=== PATIENT | female | born 1975 | race Caucasian/White ===

== ENCOUNTER → 2017-10-23 13:03 | Outpatient (REF) | payer MEDICAID, SELFPAY ==
[2017-10-23 13:49] LABS: BUN 14 mg/dL (7-18); CREATININE 1.06 mg/dL (0.55-1.02); Calcium 8.9 mg/dL (8.5-10.1); Chloride 101 mmol/L (98-107); Estimated GFR 56.85 (mL/min/1.73m2); Glucose 101 mg/dL (70-100); Potassium 3.3 mmol/L (3.5-5.1); Sodium 138 mmol/L (136-145)
== END ==
LOC: NCHCN 13:03
PROVIDERS: PCP Family Medicine; Visit Provider Family Medicine
DX: I10 Essential (primary) hypertension (principal)
CPT/HCPCS: 80048

== ENCOUNTER 2017-11-21 10:47 | Outpatient (REF) | payer MEDICAID, SELFPAY ==
[2017-11-21 13:26] LABS: Anion Gap 8.2 mmol/L (3-11); BUN 18 mg/dL (7-18); CO2 26.8 mmol/L (21.0-32.0); CREATININE 1.01 mg/dL (0.55-1.02); Calcium 8.7 mg/dL (8.5-10.1); Chloride 101 mmol/L (98-107); Glucose 101 mg/dL (70-100); Potassium 3.6 mmol/L (3.5-5.1); Sodium 136 mmol/L (136-145)
== END 2017-11-21 11:07 ==
LOC: NCHCN 10:47
PROVIDERS: PCP Family Medicine; Visit Provider Family Medicine
DX: E87.6 Hypokalemia (principal)
CPT/HCPCS: 80048

== ENCOUNTER 2018-01-21 11:39 | Outpatient (REF) | payer MEDICAID, SELFPAY ==
[2018-01-21 19:21] LABS: HCT 36.1 % (36.0-46.0); HGB 12.7 g/dL (12.0-15.5); Mean Corp. HGB Concentration 35.2 g/dL (32.0-36.0); Mean Corpuscular Hemoglobin 32.3 pg (27.0-33.0); Mean Corpuscular Volume 91.9 fL (80-95); Mean Platelet Volume 9.8 fL (8.0-11.0); Platelet Count 299 x1000/uL (130-400); RBC 3.93 m/cumm (4.00-5.20); RBC Distribution Width 12.6 % (11.7-14.6); White Blood Cell Count 8.61 k/cumm (4.4-10.8)
[2018-01-21 20:11] LABS: Anion Gap 11.2 mmol/L (3-11); BUN 13 mg/dL (7-18); CO2 26.8 mmol/L (21.0-32.0); CREATININE 0.99 mg/dL (0.55-1.02); Calcium 8.6 mg/dL (8.5-10.1); Chloride 101 mmol/L (98-107); Ferritin 30 ng/mL (8-388); Glucose 89 mg/dL (70-100); Potassium 3.2 mmol/L (3.5-5.1); Sodium 139 mmol/L (136-145)
== END 2018-01-21 11:59 ==
LOC: NCHCN 11:39
PROVIDERS: PCP Family Medicine; Visit Provider Family Medicine
DX: E87.6 Hypokalemia (principal); K51.90 Ulcerative colitis, unspecified, without complications; I10 Essential (primary) hypertension; Z86.2 Personal history of diseases of the blood and blood-forming organs and certain disorders involving the immune mechanism
CPT/HCPCS: 80048; 85027; 82728

== ENCOUNTER 2018-06-26 11:20 | Outpatient (REF) | payer MEDICAID, SELFPAY ==
[2018-06-26 19:34] LABS: Potassium 3.9 mmol/L (3.5-5.1)
== END 2018-06-26 11:40 ==
LOC: NCHCN 11:20
PROVIDERS: PCP Family Medicine; Visit Provider Family Medicine
DX: I10 Essential (primary) hypertension (principal); E87.6 Hypokalemia
CPT/HCPCS: 84132

== ENCOUNTER 2018-06-30 01:33 | Outpatient (CLI) | payer MEDICAID, SELFPAY ==
--- NOTE | 2018-06-30 11:54 | DI.MAMMO_ITS ---
SYMPTOM/DIAGNOSIS: SCREENING, Z12.39 MAMMOGRAMS: Mammograms were interpreted according to the usual protocol including computer analysis with CAD system, tomosynthesis and C view imaging. Comparison is made with prior examinations. Breast density, Category C. No suspicious masses or microcalcifications are seen. There is no definite evidence of malignancy. IMPRESSION: Negative mammogram. Routine screening is recommended. Category 1. MQSA ASSESSMENT OF FINDINGS: Negative. Category 1. Patient will receive a letter notifying them of these results. Bi-RADS category C. The breasts are heterogeneously dense, which may obscure small masses.
== END 2018-06-30 01:53 ==
PROVIDERS: PCP Family Medicine; Visit Provider Family Medicine
DX: Z12.31 Encounter for screening mammogram for malignant neoplasm of breast (principal)
CPT/HCPCS: 77063; 77067

== ENCOUNTER 2018-07-10 09:03 | Outpatient (REF) | payer MEDICAID, SELFPAY ==
[2018-07-10 13:00] LABS: BUN 16 mg/dL (7-18); CREATININE 0.98 mg/dL (0.55-1.02); Calcium 8.6 mg/dL (8.5-10.1); Chloride 105 mmol/L (98-107); Glucose 89 mg/dL (70-100); Potassium 3.9 mmol/L (3.5-5.1); Sodium 141 mmol/L (136-145)
== END 2018-07-10 09:23 ==
LOC: NCHCN 09:03
PROVIDERS: PCP Family Medicine; Visit Provider Family Medicine
DX: E87.6 Hypokalemia (principal); I10 Essential (primary) hypertension
CPT/HCPCS: 80048

== ENCOUNTER 2019-03-17 11:53 | Outpatient (REF) | payer MEDICAID, SELFPAY ==
[2019-03-17 12:44] LABS: Anion Gap 9.9 mmol/L (3-11); BUN 16 mg/dL (7-18); CO2 26.1 mmol/L (21.0-32.0); CREATININE 1.14 mg/dL (0.55-1.02); Calcium 8.6 mg/dL (8.5-10.1); Chloride 104 mmol/L (98-107); Estimated GFR 51.78 (mL/min/1.73m2); Glucose 106 mg/dL (74-106); Potassium 4.3 mmol/L (3.5-5.1); Sodium 140 mmol/L (136-145)
== END 2019-03-17 12:13 ==
LOC: NCHCN 11:53
PROVIDERS: PCP Family Medicine; Visit Provider Family Medicine
DX: I10 Essential (primary) hypertension (principal)
CPT/HCPCS: 80048

== ENCOUNTER 2019-05-04 12:54 | Outpatient (REF) | payer MEDICAID, SELFPAY ==
[2019-05-04 13:02] LABS: Anion Gap 8.2 mmol/L (3-11); BUN 13 mg/dL (7-18); CO2 27.8 mmol/L (21.0-32.0); Calcium 8.8 mg/dL (8.5-10.1); Chloride 105 mmol/L (98-107); Estimated GFR 53.96 (mL/min/1.73m2); Glucose 104 mg/dL (74-106); Potassium 4.5 mmol/L (3.5-5.1); Sodium 141 mmol/L (136-145)
[2019-05-04 13:41] LABS: Hemoglobin A1C 5.3 % (3.8-5.6)
== END 2019-05-04 13:14 ==
LOC: NCHCN 12:54
PROVIDERS: PCP Family Medicine; Visit Provider Family Medicine
DX: E87.6 Hypokalemia (principal); I10 Essential (primary) hypertension; R73.01 Impaired fasting glucose
CPT/HCPCS: 80048; 83036

== ENCOUNTER 2019-09-21 19:45 | Outpatient (REF) | payer MEDICAID, SELFPAY ==
[2019-10-20 09:32] LABS: Fungus Smear No Fungi Seen
== END 2019-09-21 20:05 ==
LOC: NCHCN 19:45
PROVIDERS: PCP Family Medicine; Visit Provider Nurse Practitioner Family
DX: R21 Rash and other nonspecific skin eruption (principal)
CPT/HCPCS: 87102; 87206

== ENCOUNTER 2019-10-11 00:46 | Outpatient (CLI) | payer MEDICAID, SELFPAY ==
--- NOTE | 2019-10-11 09:30 | DI.RAD_ITS ---
CLINICAL HISTORY: RT AND LT SIDED RIB PAIN,R07.81. COMPARISON: CR CHEST 2 VIEWS PA,LAT from 11/14/2016 FINDINGS: LUNGS:Clear. No pneumothorax. HEART: Normal. MEDIASTINUM: Normal. BONES: No displaced rib fracture is seen. No bony destructive lesion is seen. Mild degenerative key ges are seen in the midthoracic spine. OTHER FINDINGS: Status post cholecystectomy. IMPRESSION: 1. Unremarkable radiographic appearance of the bilateral ribs. 2. No acute pulmonary findings.
== END 2019-10-11 01:06 ==
PROVIDERS: PCP Family Medicine; Visit Provider Family Medicine
DX: R07.81 Pleurodynia (principal)
CPT/HCPCS: 71046; 71110

== ENCOUNTER 2019-10-28 01:03 | Outpatient (CLI) | payer MEDICAID, SELFPAY ==
--- NOTE | 2019-10-28 | DI.US_ITS ---
APPROVED REPORT EXAM: Comprehensive 2D, Doppler, and color-flow Echocardiogram Patient Location: Out-Patient Food Photographer: Lacy Pagan RDCS (AE) Indications: Murmur Other Information Study Quality: Good Conclusion Normal left ventricular wall thickness and chamber size. Estimated ejection fraction is 60%. There are no segmental wall motion abnormalities Normal right ventricular size and function Atria are normal in size Structurally normal aortic valve without regurgitation or stenosis Structurally normal mitral valve. Moderate mitral regurgitation Structurally normal tricuspid valve. Mild tricuspid regurgitation with normal estimated right ventri cular systolic pressure Normal pulmonic valve, trace pulmonic regurgitation Wall motion Left Ventricle The left ventricle is normal size. The left ventricular systolic function is normal. The left ventric ular ejection fraction is within the normal range. There is normal left ventricular wall thickness. T here is normal LV segmental wall motion. There is no ventricular septal defect visualized. LVEF is 60 %. Right Ventricle The right ventricle is normal size. The right ventricular systolic function is normal. The RVSP is 28 .6 mmHg. Atria The left atrium size is normal. The right atrium size is normal. The interatrial septum is intact wit h no evidence for an atrial septal defect. Aortic Valve Aortic valve is trileaflet. There is no aortic valvular stenosis. No aortic regurgitation is present. Mitral Valve The mitral valve is normal in structure. No evidence of mitral valve stenosis. moderate mitral regurg itation. Tricuspid Valve The tricuspid valve is normal in structure. There is no tricuspid valve stenosis. Mild tricuspid regu rgitation. Pulmonic Valve The pulmonary valve is normal in structure. There is no pulmonic valvular stenosis. Trace pulmonic re gurgitation. Great Vessels The aortic root is normal in size. The ascending aorta is normal in size. IVC is normal in size and c ollapses >50% with inspiration. Pericardium There is no pericardial effusion. 2D Dimensions IVSD d PLAX 0.83 cm F: 0.6-1.0 LV Vol A2C d MOD 87.8 mL LVPW d PLAX 0.83 cm F: 0.6 - 1.0 LV Vol A4C d MOD 93.2 mL LVID d PLAX 4.71 cm F: 3.8 - 5.2 LA vol/ BSA A2C s A-L 36.9 mL/m2 LVDs 3.20 cm F: 2.2 - 3.5 LA vol/ BSA A4C s A-L 29.3 mL/m2 Ao Root d 2.50 cm F: 2.7 - 3.3 LA Vol/ BSA Biplane s A-L 33.1 mL/m2 RA Area A4C 13.29 cm2 LA Area A4C s MOD 18.66 cm2 RA Vol/ BSA A4C s A-L 16.9 mL/m2 LA Area A2C s MOD 21.03 cm2 Ao Asc Diam d 3.00 cm F: 2.3 - 3.1 LV EF A4C MOD 57.7 % LV EF Teichholz 59.8 % LV EF A2C MOD 59.1 % LVEF (King's) 59.38 % F: 54 - 74 LV EF Biplane MOD 59.4 % LV Volume 71.90 mL F: 46 - 106 SV 55.64 mL LV Volume Index 38.44 mL/m2 F: 29 - 61 SV Index 29.75 mL/m2 LV Vol Biplane MOD 93.7 mL FS 31.75 % M-Mode TAPSE 2.55 cm (M/F) >1.7 LV Diastology MV E' medial 0.076 (>0.07 m/s) E/A Ratio 0.9 LV E/e MED 11.10 (<14) MV E Vmax 0.85 (0.4-1.3 m/s) MV E' lateral 0.114 (>0.1 m/s) MV A Vmax 0.95 (0.4-1.3 m/s) LV E/e LAT 7.40 (<14) MV E/A Ratio 0.86 MV E/E' medial 11.11 MV E/E' lateral 7.41 Aortic Valve LVOT Vmax 1.21 m/s AUDREY 2.23 cm2 LVOT Mean Chad. 0.78 m/s AUDREY Index 1.19 cm2/m2 LVOT Peak Grad 5.8 mmHg AoV Area Vmax 2.17 cm2 LVOT Mean Grad 2.9 mmHg AoV Area/ BSA (Vmax) 1.16 cm2/m2 LVOT VTI 0.260 m AUDREY Mean Chad. 1.96 cm2 LVOT Diam s 1.83 cm AUDREY Mean Chad. Index 1.05 cm2/m2 AoV Vmax 1.46 m/s Velocity Ratio 0.82 AoV Mean Chad. 1.04 m/s AoV Peak Grad 8.5 mmHg AoV Mean Grad 4.8 mmHg AoV VTI 0.306 m Mitral Valve MV DT 239 (160-240 msec) MR Vmax 5.84 m/s MV PHT 69 msec MR VTI 2.143 m MV Area PHT 3.17 cm2 MR Peak Grad 136.5 mmHg MV VTI 0.400 m MR Mean Grad 89.7 mmHg MR PISA Radius 0.35 cm MR EROA 0.05 cm2 MR Aliasing Velocity 0.35 m/s MR PISA 0.78 cm2 Pulmonary Valve PV Vmax 1.21 (0.5-1.5 m/s) RVOT Peak Gr. 3.26 mmHg PV Peak Grad 5.8 mmHg RVOT Mean Gr. 1.65 mmHg PV Mean Grad 2.9 mmHg RVOT VTI 0.184 m PV VTI 0.240 m RVOT Vmax 0.90 m/s Tricuspid Valve TR Peak Grad 25.6 mmHg TR Vmax 2.53 m/s RA Pressure 3.00 mmHg RVSP (TR) 28.6 mmHg
== END 2019-10-28 01:23 ==
PROVIDERS: PCP Family Medicine; Visit Provider Family Medicine
DX: I08.1 Rheumatic disorders of both mitral and tricuspid valves (principal)
CPT/HCPCS: 93306

== ENCOUNTER 2020-01-18 14:05 | Outpatient (CLI) | payer MEDICAID, SELFPAY ==
[2020-01-17 14:58] LABS: HCG Quant, Pregnancy 6 mIU/mL (1-3)
== END 2020-01-18 14:25 ==
PROVIDERS: PCP Family Medicine; Visit Provider Obstetrics & Gynecology
DX: N93.9 Abnormal uterine and vaginal bleeding, unspecified (principal)
CPT/HCPCS: 36415; 84702

== ENCOUNTER 2020-02-23 11:00 | Outpatient (REF) | payer MEDICAID, SELFPAY ==
[2020-02-23 20:12] LABS: Anion Gap 9.1 mmol/L (3-11); BUN 16 mg/dL (7-18); CO2 24.9 mmol/L (21.0-32.0); CREATININE 1.18 mg/dL (0.55-1.02); Calcium 9.3 mg/dL (8.5-10.1); Chloride 104 mmol/L (98-107); Estimated GFR 49.53 (mL/min/1.73m2); Glucose 106 mg/dL (74-106); Potassium 4.2 mmol/L (3.5-5.1); Sodium 138 mmol/L (136-145)
== END 2020-02-23 11:20 ==
LOC: NCHCN 11:00
PROVIDERS: PCP Family Medicine; Visit Provider Family Medicine
DX: I10 Essential (primary) hypertension (principal); R73.03 Prediabetes; E87.6 Hypokalemia
CPT/HCPCS: 80048; 83036

== ENCOUNTER 2020-09-08 07:57 | Outpatient (REF) | payer MEDICAID, SELFPAY ==
[2020-09-08 14:06] LABS: Anion Gap 10.4 mmol/L (3-11); BUN 17 mg/dL (7-18); CO2 25.6 mmol/L (21.0-32.0); CREATININE 1.2 mg/dL (0.55-1.02); Calcium 9.3 mg/dL (8.5-10.1); Chloride 104 mmol/L (98-107); Estimated GFR 48.58 (mL/min/1.73m2); Glucose 108 mg/dL (74-106); Potassium 4.4 mmol/L (3.5-5.1); Sodium 140 mmol/L (136-145)
[2020-09-08 17:50] LABS: COMMENT (LAB VIEW ONLY) 217.74 mg/dL; Microalb ug/mg Crea 6.9 ug/mg Cr
== END 2020-09-08 07:58 | disposition home or self-care (01) ==
LOC: LBN 07:57
PROVIDERS: PCP Family Medicine; Visit Provider Family Medicine
DX: N18.31 Chronic kidney disease, stage 3a (principal)
CPT/HCPCS: 80048; 82043; 82570

== ENCOUNTER 2020-10-16 08:47 | Outpatient (REF) | payer MEDICAID, SELFPAY ==
[2020-10-16 15:21] LABS: BUN 12 mg/dL (7-18); Calcium 9.1 mg/dL (8.5-10.1); Chloride 103 mmol/L (98-107); Estimated GFR 59.96 (mL/min/1.73m2); Glucose 107 mg/dL (74-106); Potassium 4.2 mmol/L (3.5-5.1); Sodium 138 mmol/L (136-145)
== END 2020-10-16 08:48 | disposition home or self-care (01) ==
LOC: LBN 08:47
PROVIDERS: PCP Family Medicine; Visit Provider Family Medicine
DX: N18.31 Chronic kidney disease, stage 3a (principal)
CPT/HCPCS: 80048

== ENCOUNTER 2020-10-20 10:33 | Outpatient (REF) | payer MEDICAID, SELFPAY ==
[2020-10-20 19:16] LABS: HCG Quant, Pregnancy 43688 mIU/mL (1-3)
== END 2020-10-20 10:34 | disposition home or self-care (01) ==
LOC: NCHCN 10:33
PROVIDERS: PCP Family Medicine; Visit Provider Family Medicine
DX: Z33.1 Pregnant state, incidental (principal)
CPT/HCPCS: 84702

== ENCOUNTER 2020-11-09 03:01 | Outpatient (CLI) | payer MEDICAID, SELFPAY ==
[2020-11-09 13:42] LABS: ALT 26 U/L (14-59); AST 14 U/L (15-37); Albumin 3.9 g/dL (3.4-5.0); Alkaline Phosphatase 47 U/L (46-116); Anion Gap 12.1 mmol/L (3-11); BUN 8 mg/dL (7-18); Bilirubin, Total 0.5 mg/dL (0.2-1.0); CO2 21.9 mmol/L (21.0-32.0); Calcium 8.7 mg/dL (8.5-10.1); Chloride 104 mmol/L (98-107); Estimated GFR 59.96 (mL/min/1.73m2); Glucose 109 mg/dL (74-106); Potassium 4.2 mmol/L (3.5-5.1); Sodium 138 mmol/L (136-145); Total Protein 7.3 g/dL (6.4-8.2)
== END 2020-11-09 03:02 | disposition home or self-care (01) ==
LOC: LBO 03:01
PROVIDERS: PCP Family Medicine; Visit Provider Advanced Practice Midwife
DX: I10 Essential (primary) hypertension (principal); Z34.91 Encounter for supervision of normal pregnancy, unspecified, first trimester
CPT/HCPCS: 36415; 80053

== ENCOUNTER 2020-11-09 07:54 | Outpatient (REF) | payer MEDICAID, SELFPAY ==
[2020-11-09 16:09] LABS: PROTEIN < 6.0 mg/dL (0.0-11.9); Total Volume 3200 ml
== END 2020-11-09 07:55 | disposition home or self-care (01) ==
LOC: LBN 07:54
PROVIDERS: PCP Family Medicine; Visit Provider Advanced Practice Midwife
DX: I10 Essential (primary) hypertension (principal); Z34.91 Encounter for supervision of normal pregnancy, unspecified, first trimester
CPT/HCPCS: 81050; 84155

== ENCOUNTER 2020-11-20 03:20 | Outpatient (CLI) | payer MEDICAID, SELFPAY ==
[2020-11-20 15:46] LABS: Abs Immature Grans 0.11 10^3/uL (0.0-0.06); Absolute Basophil Count 0.01 10^3/uL (0.0-0.2); Absolute Eosinophil Count 0.13 10^3/uL (0.0-0.7); Absolute Lymphocyte Count 1.77 10^3/uL (1.2-3.4); Absolute Monocyte Count 0.61 10^3/uL (0.1-0.8); Absolute Neutrophil Count 7.01 10^3/uL (1.2-6.7); Basophils % 0.1; Eosinophils % 1.3; HCT 35.2 % (36.0-46.0); Immature Grans % 1.1; Lymphocytes % 18.4; MCH 31.1 pg (27.0-33.0); MCHC 34.1 % (32.0-36.0); MCV 91.2 fL (80-95); MPV 8.8 fL (8.0-11.0); Monocytes % 6.3; Neutrophils % 72.8; Nucleated RBC 0 %; Platelet Count 251 10^3/uL (130-400); RBC 3.86 10^6/uL (3.93-5.22); RDW 12.9 % (11.7-14.6); RDW-SD 42.3 fL; WBC 9.64 10^3/uL (4.4-10.8)
[2020-11-20 16:13] LABS: Glucose,1 Hr (Glucola) 98 mg/dL (80-140)
[2020-11-20 17:03] LABS: TSH (W/Ref FT4) 0.97 uIU/mL (0.36-3.74)
[2020-11-21 10:14] LABS: Varicella IgG Antibody Positive (See Note)
[2020-11-21 10:17] LABS: Rubella IgG Ab (UVM) Positive (See Note)
[2020-11-21 10:24] LABS: Hepatitis B Surface Ag Negative (Negative)
[2020-11-21 12:31] LABS: Hepatitis C Ab w Rflx HCV PCR Negative (Negative)
[2020-11-21 13:33] LABS: HIV-1/2 Ag & Ab Screen Negative (Negative)
[2020-11-22 09:30] LABS: Hemoglobin A1C 5.2 % (<5.7)
[2020-11-22 14:21] LABS: Syphilis Total Ab w/Reflex Nonreactive (Nonreactive)
== END 2020-11-20 03:21 | disposition home or self-care (01) ==
LOC: LBO 03:20
PROVIDERS: Advanced Practice Midwife; PCP Family Medicine; Visit Provider Advanced Practice Midwife
DX: Z34.91 Encounter for supervision of normal pregnancy, unspecified, first trimester (principal)
CPT/HCPCS: 36415; 82950; 86787; 86803; 86850; 86900; 86901; 87340; 87389; 83036; 84443; 85025; 86762; 86780

== ENCOUNTER 2020-11-20 16:35 | Outpatient (REF) | payer MEDICAID, SELFPAY ==
--- NOTE | 2020-11-20 15:10 | PAPFT_PTH ---
PATIENT: Nilda Parish LOC: [facility] U#:[id number] AGE/SX: 45/F ROOM: RE11/20/[address]: Leigha Roberson : 1975 BED: DIS: 11/20/2020 SPEC #: [id number] RECD: 11/20/20 18:37 STATUS: LAINE REQ #: [id number] SATNAM: 11/20/20 15:[address]: Leigha Roberson DEPT: [facility] Cytology RECD BY: Kristina Claire ENTERED: 11/20/20 18:38 SP TYPE: PAPFT OTHR DR: Cielo Goncalves Tissues: 1 - CX/ENDOCX FOR PAP SMEARS Procedures: PAP THIN PREP/UVM Screening HPV DNA PROBE Comments: [id number]
[2020-11-20 19:01] LABS: *AMPHETAMINES SCREEN URINE Negative (Negative); *BARBITURATES SCREEN URINE Negative (Negative); *BENZODIAZEPINES SCREEN URINE Negative (Negative); Cannabinoids THC Negative (Negative); Cocaine Screen,Urine Negative (Negative); METHADONE URINE SCREEN Negative (Negative); OPIATES URINE SCREEN Negative (Negative)
[2020-11-20 19:08] LABS: Tricyclic Antidepressants Negative (Negative)
[2020-11-22 15:00] LABS: Chlamydia Result Negative (Negative); GC Result Negative (Negative)
[2020-11-24 11:41] LABS: Buprenorphine Negative ng/mL (Cutoff: 5.0); Norbuprenorphine Negative ng/mL (Cutoff: 2.5)
== END 2020-11-20 16:36 | disposition home or self-care (01) ==
LOC: LBN 16:35
PROVIDERS: PCP Family Medicine; Visit Provider Advanced Practice Midwife
DX: Z12.4 Encounter for screening for malignant neoplasm of cervix (principal); Z11.3 Encounter for screening for infections with a predominantly sexual mode of transmission; Z11.51 Encounter for screening for human papillomavirus (HPV)
CPT/HCPCS: 80307; 87491; 87591; 88142; 87086; 87624

== ENCOUNTER 2021-03-02 03:37 | Outpatient (CLI) | payer MEDICAID, SELFPAY ==
[2021-03-02 11:25] LABS: Glucose,1 Hr (Glucola) 146 mg/dL (80-140)
== END 2021-03-02 03:38 | disposition home or self-care (01) ==
PROVIDERS: PCP Family Medicine; Visit Provider Obstetrics & Gynecology
DX: O09.522 Supervision of elderly multigravida, second trimester (principal); Z3A.26 26 weeks gestation of pregnancy
CPT/HCPCS: 36415; 80053; 82950; 85025

== ENCOUNTER 2021-03-02 10:11 | Emergency (ER) | payer MEDICAID, SELFPAY ==
--- NOTE | 2021-03-02 10:00 | RT.EKG_ITS ---
APPROVED REPORT Exam: Resting ECG Reason for Exam: Syncope Patient Location: E HR:81 bpm ECG Measurements Heart Rate 81 AXIS HI 168 P 44 QRSd 85 QRS 7 QT 367 T 24 QTc 427 Conclusion Sinus rhythm...normal P axis, V-rate 60- 99 Probable left atrial enlargement...P >50mS, <-0.10mV V1. Sinus. No STEMI. I have reviewed and interpreted ECG and agree with software generated interpretation.
[2021-03-02 10:11] VITALS: BP 136/88; PULSE 84; TEMP 36.5; O2SAT 97
[2021-03-02 10:14] VITALS: RESP 14
--- NOTE | 2021-03-02 10:16 | W.ED.GENAD ---
Discharge Plan Disposition Patient Disposition: HOME Condition: Stable Discharge Details Clinical Impression: Syncope Primary Care Provider: Cielo Goncalves ED Provider: Remedios Vladez Home Meds and New Rx's Prescriptions: Continued mesalamine [Apriso] 0.375 gram capsule,extended release 24hr 1.5 gm PO QAM RF: 0 labetalol 200 mg tablet 200 mg PO BID RF: 0 aspirin [Adult Low Dose Aspirin] 81 mg tablet,delayed release (DR/EC) 81 mg PO DAILY RF: 0 prenat.vits,caroline,uxh-nwrm-cupcy Tablet 1 tab PO DAILY RF: 0 Digestive Advantage Prob Gummy 250 million cell tablet,chewable PO RF: 0 Discharge Instructions Instructions: Syncope (ED) Additional Instructions: The results of your glucose showed glucose of 149. Please discuss this with your LARGE SHEETFED PRESS OPERATOR. Please keep follow-up appointment as scheduled. The remainder of your work-up was largely within normal limits. Follow up with primary care provider in 3-5 days. Return to ED sooner if any worsening or concerns. Increase oral fluids. Referrals: Debo Tamayo MD [ [facility] STAFF PHYSICIAN] - 1 week Cielo Goncalves MD [Primary Care Provider] - 1 week Medical Decision Making 46-year-old female 8 para 4 who is approximately 25 weeks presents to the ER after having a glucose tolerance test started over the laboratory. Reported that she had a syncopal episode while sitting in a chair. Patient did not fall on the ground. She states that she felt dizzy close her eyes and then woke up with everybody around her. At this time she is awake alert, has no complaints. States she feels fine. She denies any chest pain shortness of breath no abdominal pain. She reports that she is feeling baby move. She did just have a visit this morning with Dr. Gan. BGL upon arrival is 159. EKG was reviewed by Bell Hernandez MD ER attending, please see her official report review. 1022: Spoke with Dr. Gan LARGE SHEETFED PRESS OPERATOR regarding patient presentation to the emergency department she wrecked requests us to hold off on drawing blood until 1030 and this was due for her glucose tolerance test. White blood cells 10.83 hemoglobin 10.8 hematocrit 31.8, sodium 135 anion gap 12.1 glucose 149 magnesium 1.6 Discussed follow-up with LARGE SHEETFED PRESS OPERATOR with patient verbalized understanding. Discussed strict return instructions. Patient is alert and awake and hemodynamically stable has no complaints throughout her stay. This text was generated using [employer] system, please disregard any oddities of phrase or misspellings. HPI General Mode of arrival: wheelchair. Date/Time Provider Initiated Documentation: 03/02/21 10:11. Limitations to Documentation: no limitations. Information obtained by: patient and RN notes reviewed. HPI Narrative: 46-year-old female 8 para 4 who is approximately 25 weeks presents to the ER after having a glucose tolerance test started over the laboratory. Reported that she had a syncopal episode while sitting in a chair. Patient did not fall on the ground. She states that she felt dizzy close her eyes and then woke up with everybody around her. At this time she is awake alert, has no complaints. States she feels fine. She denies any chest pain shortness of breath no abdominal pain. She reports that she is feeling baby move. She did just have a visit this morning with Dr. Gan. BGL upon arrival is 159. Related Data Home Medications Medication Instructions Recorded Confirmed mesalamine 0.375 gram 1.5 gm PO QAM 01/15/19 03/02/21 capsule,extended release 24 hr labetalol 200 mg tablet 200 mg PO BID 11/14/20 03/02/21 Bacillus coagulans 250 million cell PO 12/19/20 03/02/21 cell chewable tablet aspirin 81 mg tablet,delayed 81 mg PO DAILY 12/19/20 03/02/21 release prenat.vits,caroline,cby-mrgs-xrnit 1 tab PO DAILY 12/19/20 03/02/21 Allergies Allergy/AdvReac Type Severity Reaction Status Date / Time sulfamethoxazole Allergy Severe joints Unverified 03/02/21 09:24 [From Bactrim] swell trimethoprim [From Bactrim] Allergy Severe joints Unverified 03/02/21 09:24 swell hyoscyamine AdvReac Skin Rash Unverified 03/02/21 09:24 CT Contrast AdvReac Skin Rash Uncoded 03/02/21 09:24 General Stated Complaint: Dizzy/Sync MRAY: 3 Review of Systems All systems reviewed & are unremarkable except as noted in HPI and below Cardiovascular Cardiovascular: Reports syncope Neurologic Neurologic: Reports syncope PFSH All Active Problems (Updated 03/02/21 @ 13:12 by Debo Tamayo MD) Syncope (Chronic) Numbness of right hand (Acute) Advanced maternal age in multigravida (Acute) Ulcerative colitis (Chronic) Takes Apriso, Se[facility] Dr. [facility] in [facility] Chronic kidney disease (CKD) stage G3a/A1, moderately decreased glomerular filtration rate (GFR) between 45-59 mL/min/1.73 square meter and albuminuria creatinine ratio less than 30 mg/g (Acute) Medical History (Updated 03/02/21 @ 13:12 by Debo Tamayo MD) BMI 36.0-36.9,adult Clostridium difficile colitis Depression prozac in the past History of cardiac arrhythmia during surgery only, follow up testing negative Hypertension Surgical History Hx of cholecystectomy Previous back surgery heart arrhythmia during surgery S/P hernia surgery S/P knee surgery Family History Father Hypertension Parkinsons disease ?PSP Diabetes Mother Hypertension Rheumatoid arthritis Thyroid disease Maternal Grandmother Diabetes Paternal Grandmother Diabetes Maternal Grandfather Hypertension Social History Smoking/Tobacco Use Status: Never Smoking risk assessment performed?: Yes Alcohol Intake: never Drug use: Never Substance use type: does not use Do you feel safe at home: Yes Do you feel safe in your relationship?: Yes History History 8 Para 4 Hx # Term Pregnancies 4 Multiple births Hx # Pregnancies Ectopic pregnancies AB induced Hx Number of Living Children AB spontaneous 3 Past Pregnancies Del. Date GA/Weeks # Outcome Route Wgt Sex Labor Lgth Anesthesia Location Prov Complic 05/23/96 36 No Successful vaginal 2721.554 g Female local [facility]- [facility] 10/21/98 40 No Successful vaginal 3827.186 g Male [facility], C[facility]o Amari hemorrhage 08/27/01 40 No Successful vaginal 3742.137 g Male [facility] 09/28/05 40 No Successful vaginal Male short [facility]anna Delivery Date: 05/23/96 PROM preeclampsia Leigha Roberson Delivery Date: 10/21/98 Saulo, hemorrhage Leigha Roberson Delivery Date: 08/27/01 Leigha Napier Delivery Date: 09/28/05 Adel[place] Leigha Roberson Exam Const General: cooperative, healthy appearing and comfortable Nutritional Appearance: average body habitus Orientation: alert, awake and oriented x3 HENMT Head: normal to inspection Resp Effort & Inspection: normal respiratory effort and able to speak in complete sentences Auscultation: clear to auscultation bilaterally Cardio Rate: regular rate Rhythm: regular rhythm Heart Sounds: S1 normal and S2 normal GI Inspection: other (Consistent with 25-year-old ) Skin General skin exam: no rashes or lesions noted and pallor Course Vital Signs Vital signs: Vital Signs Temperature 36.5 C 03/02/21 10:11 Pulse 84 03/02/21 10:11 Blood Pressure 136/88 03/02/21 10:11 Pulse Oximetry 97 03/02/21 10:11 Temperature 36.5 C 03/02/21 10:11 Temperature Source Oral 03/02/21 10:11 Pulse 84 03/02/21 10:11 Blood Pressure 136/88 03/02/21 10:11 Pulse Oximetry 97 03/02/21 10:11 Oxygen Delivery Method Room Air 03/02/21 10:11 Oxygen Flow Rate 0 03/02/21 10:11 Pain Level 0 03/02/21 10:11
[2021-03-02 10:21] VITALS: O2SAT 98
[2021-03-02 10:30] VITALS: PULSE 84; RESP 20; O2SAT 97
[2021-03-02 10:40] VITALS: PULSE 82; RESP 18; O2SAT 97
[2021-03-02 10:40] LABS: Abs Immature Grans 0.25 10^3/uL (0.0-0.06); Absolute Basophil Count 0.01 10^3/uL (0.0-0.2); Absolute Lymphocyte Count 1.75 10^3/uL (1.2-3.4); Absolute Monocyte Count 0.56 10^3/uL (0.1-0.8); Absolute Neutrophil Count 8.15 10^3/uL (1.2-6.7); Basophils % 0.1; Eosinophils % 0.9; HCT 31.8 % (36.0-46.0); HGB 10.8 g/dL (11.2-15.7); Immature Grans % 2.3; Lymphocytes % 16.2; MCH 30.5 pg (27.0-33.0); MCV 89.8 fL (80-95); MPV 8.9 fL (8.0-11.0); Monocytes % 5.2; Neutrophils % 75.3; Nucleated RBC 0 %; Platelet Count 223 10^3/uL (130-400); RBC 3.54 10^6/uL (3.93-5.22); RDW 14.1 % (11.7-14.6); WBC 10.83 10^3/uL (4.4-10.8)
[2021-03-02 10:50] VITALS: PULSE 90; RESP 16; O2SAT 97
[2021-03-02] MEDS: Normal Saline 1,000 ML 250 ML IV (10:54)
[2021-03-02 10:56] LABS: ALT 21 U/L (14-59); AST 14 U/L (15-37); Alkaline Phosphatase 59 U/L (46-116); Anion Gap 12.1 mmol/L (3-11); BUN 11 mg/dL (7-18); Bilirubin, Total 0.3 mg/dL (0.2-1.0); CO2 19.9 mmol/L (21.0-32.0); CREATININE 0.9 mg/dL (0.55-1.02); Calcium 8.7 mg/dL (8.5-10.1); Chloride 103 mmol/L (98-107); Glucose 149 mg/dL (74-106); Magnesium 1.6 mg/dL (1.8-2.4); Potassium 3.7 mmol/L (3.5-5.1); Sodium 135 mmol/L (136-145); Total Protein 6.9 g/dL (6.4-8.2); Troponin I < 50 ng/L (<or=60)
== END 2021-03-02 12:05 | disposition home or self-care (01) ==
LOC: ER 12:00
PROVIDERS: Emergency Provider Registered Nurse Emergency; PCP Family Medicine
DX: O26.892 Other specified pregnancy related conditions, second trimester (principal); R55 Syncope and collapse; Z3A.25 25 weeks gestation of pregnancy
CPT/HCPCS: 36415; 36416; 80053; 82962; 93005; 96360; 99284; 83735; 84484; 85025; 93010; 99283

== ENCOUNTER 2021-03-08 04:15 | Outpatient (CLI) | payer MEDICAID, SELFPAY ==
[2021-03-08 07:24] LABS: Abs Immature Grans 0.33 10^3/uL (0.0-0.06); Absolute Basophil Count 0.04 10^3/uL (0.0-0.2); Absolute Eosinophil Count 0.12 10^3/uL (0.0-0.7); Absolute Lymphocyte Count 1.87 10^3/uL (1.2-3.4); Absolute Monocyte Count 0.66 10^3/uL (0.1-0.8); Absolute Neutrophil Count 7.52 10^3/uL (1.2-6.7); Basophils % 0.4; Eosinophils % 1.1; HGB 10.9 g/dL (11.2-15.7); Immature Grans % 3.1; Lymphocytes % 17.7; MCH 30.3 pg (27.0-33.0); MCV 91.7 fL (80-95); MPV 8.9 fL (8.0-11.0); Monocytes % 6.3; Neutrophils % 71.4; Nucleated RBC 0 %; Platelet Count 215 10^3/uL (130-400); RDW-SD 47.6 fL; WBC 10.54 10^3/uL (4.4-10.8)
[2021-03-08 08:53] LABS: Glucose 1 Hour 206 mg/dL
[2021-03-08 11:08] LABS: Glucose 3 Hour 119 mg/dL
[2021-03-08 11:12] LABS: ALT 23 U/L (14-59); AST 16 U/L (15-37); Alkaline Phosphatase 62 U/L (46-116); Anion Gap 12.1 mmol/L (3-11); BUN 13 mg/dL (7-18); Bilirubin, Total 0.3 mg/dL (0.2-1.0); CO2 21.9 mmol/L (21.0-32.0); CREATININE 0.9 mg/dL (0.55-1.02); Calcium 9.6 mg/dL (8.5-10.1); Chloride 103 mmol/L (98-107); Glucose 108 mg/dL (74-106); Potassium 3.9 mmol/L (3.5-5.1); Sodium 137 mmol/L (136-145); Total Protein 7.1 g/dL (6.4-8.2)
== END 2021-03-08 04:16 | disposition home or self-care (01) ==
LOC: LBO 04:15
PROVIDERS: PCP Family Medicine; Visit Provider Obstetrics & Gynecology
DX: O09.522 Supervision of elderly multigravida, second trimester (principal); Z13.1 Encounter for screening for diabetes mellitus
CPT/HCPCS: 36415; 80053; 82951; 85025

== ENCOUNTER 2021-03-19 04:02 | Outpatient (CLI) | payer MEDICAID, SELFPAY ==
--- NOTE | 2021-03-19 14:00 | NS.NUTBLAN_ITS ---
Nilda attended nutritional counseling for blood sugar management during . She is 46 years old with 28 week of her 5th child. Her risk factors for gestational diabetes include BMI > 35 prior to conceiving and a first degree relative with DM2 (father). PMH: HTN, hx of preeclampsia, ulcerative colitis. Attempted to complete a GTT on 03/04/21 but unable to complete due to vomitting/fainting. Diet Recall: cereal, apple, granola bar, [place] yogurt, home made dinner Exercise: walks 20 min daily on treadmill. Weight gain: 12 lbs in 28 weeks. Session today focused on importance of limiting simple sugars and salt in diet while and to increase intake of non starchy vegetables, lean protein and healthy fats and to walk daily for minimum of 30 minutes. Weight gain goal: 15 lbs at term. Nilda reports changing her diet when she learned of her elevated blood sugars and has increased intake of vegetables and started walking. Suspect with life style changes will be able to avoid GDM. She has not been checking her blood sugars. Recommend A1C at next blood draw. Declined offer of a dexcom 6 continuous glucose monitor. Provided meal plans and recipes. Will follow up prn.
--- NOTE | 2021-03-27 13:32 | W.DIABETESNO ---
Date of service: 03/27/21 Time of Service: 13:32 Diabetes Note Reason for Visit: blood sugar NOTE: Left message for Nilda to call me back to set up a time to get a Dexcom 6 continuous glucose monitor. Time Spent in Nutritional Counseling and Treatment: 0
== END 2021-03-19 04:03 | disposition home or self-care (01) ==
LOC: DS 04:02
PROVIDERS: PCP Family Medicine; Visit Provider Dietitian, Registered
DX: Z71.3 Dietary counseling and surveillance (principal)
CPT/HCPCS: 97802

== ENCOUNTER 2021-04-12 08:57 | Outpatient (CLI) | payer MEDICAID, SELFPAY ==
[2021-04-12 13:33] VITALS: BP 121/70; PULSE 88; TEMP 37
[2021-04-12 13:37] VITALS: BP 121/70; PULSE 88
--- NOTE | 2021-04-12 14:22 | W.OBNST ---
Date of service: 04/12/21 Time of Service: 14:22 NST Evaluation Reason for NST Reasons for Nonstress Test: GDM-INSULIN and ADVANCED MATERNAL AGE Gestational Age Gestational Age in Weeks and Days: 31 Weeks and 4Days Test and Monitor Explained Test/Monitor Explained: Test Explained Vital Signs Blood Pressure: 121/70 Pulse: 88 Temperature: 98.6 F NST Information Date on Monitor: 04/12/21 Time on Monitor: 13:15 Date off Monitor: 04/12/21 NST Interventions: None NST Evaluation Patient States Movement: Present FHR Baseline: 140 Variability: Moderate 6-25 bpm Accelerations: 15x15 Decelerations: None NST Results: Reactive Note NST Note Note: Reactive NST, category 1 strip. NST Reviewed and Verified by: Rosaura Cowan
[2021-04-12 14:23] VITALS: BP 121/70; PULSE 88; TEMP 37
--- NOTE | 2021-04-12 16:15 | W.OBNST ---
Date of service: 04/12/21 Time of Service: 16:16 NST Evaluation Reason for NST Reasons for Nonstress Test: GDM-INSULIN and ADVANCED MATERNAL AGE Gestational Age Gestational Age in Weeks and Days: 31 Weeks and 4Days Test and Monitor Explained Test/Monitor Explained: Test Explained Vital Signs Blood Pressure: 121/70 Pulse: 88 Temperature: 98.6 F NST Information Date on Monitor: 04/12/21 Time on Monitor: 13:15 Date off Monitor: 04/12/21 Time off Monitor: 13:50 Total Time on Monitor: 35 NST Interventions: None NST Evaluation Patient States Movement: Present FHR Baseline: 140 Variability: Moderate 6-25 bpm Accelerations: 15x15 Decelerations: None NST Results: Reactive Note NST Note Note: Reactive NST, category 1 strip NST Reviewed and Verified by: Rosaura Cowan
[2021-04-12 16:16] VITALS: BP 121/70; PULSE 88; TEMP 37
== END 2021-04-12 14:00 | disposition home or self-care (01) ==
LOC: BCD 08:58 → OBS 13:09
PROVIDERS: PCP Family Medicine; Visit Provider Obstetrics & Gynecology Gynecology
DX: O24.414 Gestational diabetes mellitus in pregnancy, insulin controlled (principal); O09.523 Supervision of elderly multigravida, third trimester; Z3A.31 31 weeks gestation of pregnancy
CPT/HCPCS: 59025

== ENCOUNTER 2021-04-16 01:48 | Outpatient (CLI) | payer MEDICAID, SELFPAY ==
--- NOTE | 2021-04-12 15:23 | W.DIABETESNO ---
Date of service: 04/12/21 Time of Service: 15:23 Diabetes Note Reason for Visit: insulin teaching NOTE: Nilda is 31 weeks with GDM. Reports elevated fasting and post prandial sugars. To start 4 unit NPH q HS. Provided insulin injection teaching and reviewed dietary recommendations, blood sugar goals. Will follow up with Nilda on 04/16 at next [facility] visit. Time Spent in Nutritional Counseling and Treatment: 20
--- NOTE | 2021-04-16 07:15 | DI.US_ITS ---
Exam(s) US OB NEREIDA WEIGHT EXAM: US OB NEREIDA WEIGHT CLINICAL HISTORY: growth and NEREIDA,GEST DIABETES,HIGH RISK,o09.90,o24.419. TECHNIQUE: Transabdominal obstetrical ultrasound was performed. COMPARISON: No exams were available for comparison FINDINGS: There is a single viable intrauterine gestation with cardiac activity identified-143 bpm The fetus is presently in variable position . Amniotic fluid: There is upper normal amount of amniotic fluid with an NEREIDA of 21cm. Placental location: The placenta is anterior left grade 2,with no evidence of placenta previa.Distanc e from the tip of the placenta to the internal cervical os is 10.[address] this at approximately 35 weeks and 4 days gestational age, implying CAMILA of 05/17/2021. BPD measures 35 weeks and 1 day HC measures 37 weeks and 0 days AC measures 36 weeks and 2 days FL measures 33 weeks and 5 days Estimated weight is 2720 gm-6 pounds 0 ounces Fetus is at the percentile on the Hadlock scale. IMPRESSION:: Viable 3rd trimester gestation, as described above. NEREIDA= 21 cm which is upper normal DATA REPOSITORY:
== END 2021-04-16 02:08 ==
PROVIDERS: PCP Family Medicine; Visit Provider Obstetrics & Gynecology
DX: O09.523 Supervision of elderly multigravida, third trimester; O09.93 Supervision of high risk pregnancy, unspecified, third trimester; O24.414 Gestational diabetes mellitus in pregnancy, insulin controlled
CPT/HCPCS: 76816

== ENCOUNTER 2021-04-16 08:17 | Outpatient (CLI) | payer MEDICAID, SELFPAY ==
[2021-04-16 10:57] VITALS: BP 145/86; PULSE 81; TEMP 36.7
[2021-04-16 11:06] VITALS: BP 145/86; PULSE 81
--- NOTE | 2021-04-16 11:07 | PDOC.NST_ITS ---
Date of service: 04/16/21 Time of Service: 11:08 NST Evaluation Reason for NST Reasons for Nonstress Test: GDM-INSULIN and CHRONIC HYPERTENSION Gestational Age Gestational Age in Weeks and Days: 31 Weeks and 4Days NST Evaluation Patient States Movement: Present FHR Baseline: 150 NST Results: Non-Reactive (Difficulty and continuous monitoring. Bedside biophysical profile performed) Note Biophysical Profile (8 out of 10), NEREIDA (17) and Presentation (Vertex) NST Note Note: Nonstress test difficult to monitor continuously in light of the fact that the baby is significantly active. Bedside ultrasound performed for biophysical pro file with an 8 out of 10, 2 for breathing, 2 for tone, 2 for movement, 2 for NEREIDA. NEREIDA equals 17. vertex position. Blood sugars reviewed. 1 elevated fasting with remainders below 95, in target range. Continue NPH, 4 units in the evening. NST Reviewed and Verified by: Rosaura Cowan
== END 2021-04-16 11:20 | disposition home or self-care (01) ==
LOC: BCD 08:17 → OBS 10:53
PROVIDERS: PCP Family Medicine; Visit Provider Obstetrics & Gynecology
DX: O24.414 Gestational diabetes mellitus in pregnancy, insulin controlled (principal); O10.013 Pre-existing essential hypertension complicating pregnancy, third trimester; Z3A.31 31 weeks gestation of pregnancy
CPT/HCPCS: 59025

== ENCOUNTER 2021-04-19 06:21 | Outpatient (CLI) | payer MEDICAID, SELFPAY ==
[2021-04-19 09:43] VITALS: BP 133/82; PULSE 82; TEMP 36.5
[2021-04-19 09:44] VITALS: BP 133/82; PULSE 82
--- NOTE | 2021-04-19 11:56 | W.OBNST ---
Date of service: 04/19/21 Time of Service: 11:56 NST Evaluation Reason for NST Reasons for Nonstress Test: GDM-INSULIN Gestational Age Gestational Age in Weeks and Days: 32 Weeks and 4Days Test and Monitor Explained Test/Monitor Explained: Test Explained, Monitor Explained and Patient Verbalized Understanding Vital Signs Blood Pressure: 133/82 Pulse: 82 Temperature: 97.7 F NST Information Date on Monitor: 04/19/21 Time on Monitor: 09:35 Date off Monitor: 04/19/21 Time off Monitor: 10:07 Total Time on Monitor: 32 NST Interventions: PO Hydration NST Evaluation Patient States Movement: Present FHR Baseline: 140 Variability: Moderate 6-25 bpm Accelerations: 15x15 Decelerations: None NST Results: Reactive Note NST Note Note: GDM @32.4wks here for NST. Started insulin last week and the past few days her finger sticks have been almost all normal. 1 elevated after eating cereal. She has improved her diet and is learning what will elevate her numbers. Return next week for repeat NST. NST Reviewed and Verified by: Debo Tamayo
[2021-04-19 11:58] VITALS: BP 133/82; PULSE 82; TEMP 36.5
== END 2021-04-19 10:20 | disposition home or self-care (01) ==
LOC: BCD 06:21 → OBS 09:38
PROVIDERS: PCP Family Medicine; Visit Provider Obstetrics & Gynecology
DX: O24.414 Gestational diabetes mellitus in pregnancy, insulin controlled (principal); Z3A.32 32 weeks gestation of pregnancy
CPT/HCPCS: 59025

== ENCOUNTER 2021-04-24 08:47 | Outpatient (CLI) | payer MEDICAID, SELFPAY ==
[2021-04-24 13:26] VITALS: BP 147/87; PULSE 87
[2021-04-24 13:28] VITALS: BP 147/87; PULSE 87; TEMP 36.8
[2021-04-24 13:32] VITALS: BP 160/87; PULSE 85
[2021-04-24 13:44] VITALS: BP 149/86; PULSE 89
[2021-04-24] MEDS: Labetalol 100 MG TAB 200 MG PO (13:51)
[2021-04-24 13:53] LABS: Source Nasal/Nares
[2021-04-24 13:55] LABS: Absolute Basophil Count 0.03 10^3/uL (0.0-0.2); Absolute Eosinophil Count 0.11 10^3/uL (0.0-0.7); Absolute Lymphocyte Count 1.78 10^3/uL (1.2-3.4); Absolute Monocyte Count 0.71 10^3/uL (0.1-0.8); Absolute Neutrophil Count 8.49 10^3/uL (1.2-6.7); Basophils % 0.3; HCT 32.7 % (36.0-46.0); HGB 10.8 g/dL (11.2-15.7); Immature Grans % 1.8; Lymphocytes % 15.7; MCH 29.8 pg (27.0-33.0); MCV 90.1 fL (80-95); MPV 9.2 fL (8.0-11.0); Monocytes % 6.3; Neutrophils % 74.9; Nucleated RBC 0 %; Platelet Count 281 10^3/uL (130-400); RBC 3.63 10^6/uL (3.93-5.22); RDW 14.4 % (11.7-14.6); RDW-SD 46.3 fL; WBC 11.34 10^3/uL (4.4-10.8)
[2021-04-24 14:32] LABS: COVID-19 PCR Negative (Negative)
[2021-04-24 14:36] LABS: ALT 24 U/L (14-59); AST 19 U/L (15-37); Albumin 2.8 g/dL (3.4-5.0); Alkaline Phosphatase 93 U/L (46-116); Anion Gap 12.3 mmol/L (3-11); BUN 12 mg/dL (7-18); Bilirubin, Total 0.3 mg/dL (0.2-1.0); CO2 20.7 mmol/L (21.0-32.0); CREATININE 0.9 mg/dL (0.55-1.02); Calcium 9.3 mg/dL (8.5-10.1); Chloride 104 mmol/L (98-107); Glucose 104 mg/dL (74-106); Sodium 137 mmol/L (136-145)
[2021-04-24 14:47] LABS: COMMENT (LAB VIEW ONLY) 163.88 mg/dL; PROTEIN 35.1 mg/dL; Prot/Crea Ur Ratio 0.21
--- NOTE | 2021-04-24 15:28 | PDOC.NST_ITS ---
Date of service: 04/24/21 Time of Service: 15:29 NST Evaluation Reason for NST Reasons for Nonstress Test: GDM-DIET CONTROLLED, CHRONIC HYPERTENSION and ADVANCED MATERNAL AGE Gestational Age Gestational Age in Weeks and Days: 33 Weeks and 3Days Test and Monitor Explained Test/Monitor Explained: Test Explained, Monitor Explained and Patient Verbalized Understanding Vital Signs Blood Pressure: 147/87 Pulse: 87 Temperature: 98.2 F Urine Results Urine Protein: Negative Urine Ketones: Negative Urine Glucose: Negative Urine Blood: Negative NST Information Date on Monitor: 04/24/21 Time on Monitor: 13:05 Date off Monitor: 04/24/21 Time off Monitor: 14:40 Total Time on Monitor: 95 NST Interventions: PO Hydration Contraction Frequency: none NST Evaluation Patient States Movement: Present FHR Baseline: 135 Variability: Moderate 6-25 bpm Accelerations: 15x15 Decelerations: None NST Results: Reactive Note NST Note Note: Patient has a reactive, category 1 nonstress test. She was feeling somewhat poorly on presentation with some nasal congestion and mild headache. She also had mildly elevated blood pressure. She did receive her dose of 200 mg of labetalol earlier this afternoon with good response. Laboratory studies including CBC, CMP, urine protein creatinine ratio were performed and are n ormal. 48 hours for blood pressure check and nonstress testing. All symptoms reviewed. Precautions given. NST Reviewed and Verified by: Rosaura Cowan
[2021-04-24 15:29] VITALS: BP 147/87; PULSE 87; TEMP 36.8
== END 2021-04-24 15:00 | disposition home or self-care (01) ==
LOC: BCD 08:49 → OBS 13:02
PROVIDERS: Obstetrics & Gynecology; PCP Family Medicine; Visit Provider Advanced Practice Midwife
DX: O24.410 Gestational diabetes mellitus in pregnancy, diet controlled (principal); O10.013 Pre-existing essential hypertension complicating pregnancy, third trimester; O09.523 Supervision of elderly multigravida, third trimester; Z3A.33 33 weeks gestation of pregnancy; O26.893 Other specified pregnancy related conditions, third trimester; R51.0 Headache with orthostatic component, not elsewhere classified; R09.81 Nasal congestion
CPT/HCPCS: 59025; 36415; 80053; 87635; 99211; 82565; 84156; 85025

== ENCOUNTER 2021-04-24 20:33 | Inpatient (IN) | payer MEDICAID, SELFPAY ==
[2021-04-24] VITALS (32 sets, daily range): BP systolic 137–173; BP diastolic 68–92; PULSE 83–103; RESP 16; TEMP 36.2–38.1; O2SAT 99
[2021-04-24] MEDS: Acetaminophen 500 MG TAB 1000 MG PO (18:42)
[2021-04-24] MEDS: Labetalol 100 MG TAB 200 MG PO (18:43)
[2021-04-24] MEDS: Normal Saline 1,000 ML 999 ML IV (18:52)
[2021-04-24] MEDS: Normal Saline Flush 10 ML SYR (18:57)
[2021-04-24] MEDS: hydrALAZINE 20 MG/ML VIAL ×2 (19:31→19:49)
--- NOTE | 2021-04-24 20:35 | HPE_ITS ---
Date of service: 04/24/21 Time of Service: 20:35 Assessment and Plan Assessment and plan (1) Preeclampsia: Status: Acute Assessment and plan: Patient has severe preeclampsia based on elevated blood pressures superimposed on chronic hypertension with underlying kidney disease. She has received both oral and IV antihypertensives with reasonable response with a blood pressure currently of 140s over 70s. She was placed empirically on magnesium sulfate for seizure prophylaxis and has received 1 dose of betamethasone IM for lung maturity. She will be transferred to [facility] under the care of Dr. Modesta Jaquez for ongoing surveillance, management, and potential delivery. (2) GDM (gestational diabetes mellitus): Status: Acute Assessment and plan: Currently stable blood glucose with use of NPH insulin, 40 units in the evening. Has been (3) HRP (high risk ): Status: Acute (4) Advanced maternal age in multigravida: Status: Acute (5) Chronic kidney disease (CKD) stage G3a/A1, moderately decreased glomerular filtration rate (GFR) between 45-59 mL/min/1.73 square meter and albuminuria creatinine ratio less than 30 mg/g: Status: Acute OB-HPI Labor/Delivery History of Present Illness Reason for Visit: NST Chief Complaint: Other (Elevated blood pressure). CAMILA Calculator Estimated Delivery Date Method Current WG Current Estimate 06/09/21 LMP (Uncertain) 33w 3d Other Estimates 06/09/21 Ultrasound #1 33w 3d Comments: Patient was seen for surveillance earlier today with a category 1, reactive nonstress test. She does have a mildly elevated blood pressure at that time and was given her labetalol, 200 mg early with good response to blood pressure of 150s over 80s. She was discharged home after having normal laboratory studies. She called this evening with feeling somewhat poorly, with a dry mouth and is somewhat irritable. Blood pressure at home was 160/80 History of Present Expected Delivery Route/Plan - MD VALDERRAMA - Harry Parish (4th child together) See [facility] note 11/16/20 for plan of care BG Specific Issues/Plan 1. Hypertension - Discontinued B.P. medications (losartan, metoprolol and spirolactone with ) - currently taking labetalol 200 mg BID prescribed by Dr. Goncalves 1a. Elevated GFR and creatinine 2020 - 24-hr urine and CMP done 11/09; 24 hr urine is negative for protein, CMP & CBC WNL-GFR 59.96 1b. [facility] consultation ordered by Dr. Goncalves, her PCP. Consultation report on patient's portal includes recommendation for Hgb A1C which was drawn 2. BMI 36 - early GTT and ASA - Early GTT -98 3. History of preeclampsia with first - Baby ASA recommended by Dr. Cowan at 8 +4 weeks. 4. History post hemorrhage - I.V. access in labor. 5. History of depression - doing well currently 6. Received covid vaccine - unvaccinated. 7. History of ulcerative colitis - taking Apriso 8. Heart murmur - recent echocardiogram neg. 9. AMA- Panorama normal - declines CF/AFP. -Normal isma sono at [facility] 02/06 -Growth U/S at [facility] scheduled 05/14/21 -Delivery around 38 weeks -Twice weekly NST at 32 weeks 10. Desires BTL PP, sign consent at 30 weeks 11. GDM -Dietary consult, check FS, pp sugars, possible insulin -NSTs, growth sonos(already scheduled due to HTN) scheduled 04/16/21 Narrative: Patient has been seen earlier in the day for nonstress testing with mildly elevated blood pressure and received appropriate dose of labetalol. Laboratory studies at that point were normal. She went home to have increasing discomfort, dry mouth, feeling poorly, and was noted to have elevated blood pressure at home of 160/80. On presentation to the center here blood pressures were 160s 170s over. She did receive additional treatment as well as rounds of oral labetalol, 5 mg of hydralazine, followed by 10 mg hydralazine. Magnesium sulfate bolus 4 g was started with an ongoing drip of 2 g/h. In light of her elevated blood pressure, remote from delivery at 33 weeks and 3 days with underlying chronic hypertension, renal disease, and now gestational diabetes requiring insulin, transfer to tertiary care center is warranted. [facility] called, spoke with Dr. Jaquez who will receive this patient. All questions with patient were answered. Review of Systems Narrative: Generally feeling poorly. Some sinus and frontal pelvic pressure, no distinct headache, no visual changes. Significant dry mouth. Baby is moving and active. No perceivable contractions noted. No epigastric pain. All systems reviewed & are unremarkable except as noted in HPI and below Constitutional Constitutional: Reports as per HPI, Reports body ache(s), Reports excessive sweating, Denies headache(s), Denies weakness and Reports other (Irritability) Eyes Eyes: Denies blurry vision, Denies change in vision, Denies diplopia and Denies loss of vision ENT Ears, Nose, Mouth, and Throat: Reports system reviewed and no additional complaints, except as documented, Denies vertigo, Reports dizziness, Denies headache(s) and Reports other (Dry mouth) Cardiovascular Cardiovascular: Denies chest pain, Denies syncope, Denies rapid heart rate, Denies edema, Denies irregular heart rhythm and Denies dyspnea Respiratory Respiratory: Denies chest congestion, Denies cough, Denies dyspnea and Denies wheezing Gastrointestinal Gastrointestinal: Reports as per HPI, Denies abdominal pain, Denies bloating and Denies constipation Genitourinary Genitourinary: Reports system reviewed and no additional complaints, except as documented Musculoskeletal Musculoskeletal: Reports system reviewed and no additional complaints, except as documented, Denies back pain, Reports myalgias, Denies arthralgias and Denies joint swelling Neurologic Neurologic: Reports as per HPI, Denies abnormal movements, Denies vertigo, Reports dizziness, Denies syncope, Denies headache(s), Denies loss of vision, Denies other visual disturbances, Reports restless legs and Denies weakness Endocrine Endocrine: Reports excessive sweating Allergic/Immunologic Allergic/Immunologic: Denies wheezing PFSH All Active Problems (Updated 04/24/21 @ 20:55 by Rosaura Cowan DO) Preeclampsia (Acute) GDM (gestational diabetes mellitus) (Acute) HRP (high risk ) (Acute) (Acute) Numbness of right hand (Acute) Advanced maternal age in multigravida (Acute) Ulcerative colitis (Chronic) Takes Apriso, Sees Dr. Clay in [facility] Chronic kidney disease (CKD) stage G3a/A1, moderately decreased glomerular filtration rate (GFR) between 45-59 mL/min/1.73 square meter and albuminuria creatinine ratio less than 30 mg/g (Acute) Medical History (Updated 04/24/21 @ 20:55 by Rosaura Cowan DO) BMI 36.0-36.9,adult Clostridium difficile colitis Depression prozac in the past History of cardiac arrhythmia during surgery only, follow up testing negative Hypertension Surgical History Hx of cholecystectomy Previous back surgery heart arrhythmia during surgery S/P hernia surgery S/P knee surgery Family History Father Hypertension Parkinsons disease ?PSP Diabetes Mother Hypertension Rheumatoid arthritis Thyroid disease Maternal Grandmother Diabetes Paternal Grandmother Diabetes Maternal Grandfather Hypertension Social History Smoking/Tobacco Use Status: Never Smoking risk assessment performed?: Yes Alcohol Intake: never Drug use: Never Substance use type: does not use Do you feel safe at home: Yes Do you feel safe in your relationship?: Yes History History 8 Para 4 Hx # Term Pregnancies 4 Multiple births Hx # Pregnancies Ectopic pregnancies AB induced Hx Number of Living Children AB spontaneous 3 Past Pregnancies Del. Date GA/Weeks # Outcome Route Wgt Sex Labor Lgth Anesthes ia Loc ation Prov Complic 05/23/96 36 No Successful vaginal 6 lb Female local [facility]- [facility] 10/21/98 40 No Successful vaginal 8 lb 7 oz Male [facility], [facility] Amari hemorrhage 08/27/01 40 No Successful vaginal 8 lb 4 oz Male Ivanna 09/28/05 40 No Successful vaginal Male short Krau s Delivery Date: 05/23/96 Last Updated by: Leigha Roberson CNM PROM preeclampsia Delivery Date: 10/21/98 Last Updated by: Leigha Roberson CNM Saulo, hemorrhage Delivery Date: 08/27/01 Last Updated by: Leigha Roberson CNM Stevan Delivery Date: 09/28/05 Last Updated by: Leigha Roberson CNM Adelso Meds Allergies and Home Medications Allergies Allergy/AdvReac Type Severity Reaction Status Date / Time sulfamethoxazole Allergy Severe joints Unverified 04/06/21 10:50 [From Bactrim] swell trimethoprim [From Bactrim] Allergy Severe joints Unverified 04/06/21 10:50 swell hyoscyamine AdvReac Skin Rash Unverified 04/06/21 10:50 CT Contrast AdvReac Skin Rash Uncoded 04/06/21 10:50 Home Medications Medication Instructions Recorded Confirmed Type mesalamine 0.375 gram 1.5 gm PO QAM 11/22/19 02/24/22 History capsule,extended release 24 hr (Apriso) labetalol 200 mg tablet 200 mg PO BID 11/14/20 04/19/21 History Bacillus coagulans 250 million cell PO 12/19/20 04/19/21 History cell chewable tablet (Digestive Advantage Probiotic Gummy) aspirin 81 mg tablet,delayed 81 mg PO DAILY 12/19/20 04/19/21 History release (Adult Low Dose Aspirin) prenat.vits,caroline,[id number] 1 tab PO DAILY 12/19/20 04/19/21 History insulin NPH isoph U-100 human 100 4 unit (0.04 mL) SUBCUT QPM #15 ml 04/12/21 04/19/21 Rx unit/mL (3 mL) subcutaneous pen (Humulin N NPH U-100 Insulin KwikPen) pen needle, diabetic 33 gauge x #100 ea 04/12/21 04/19/21 Rx 5/32 (Comfort EZ Pen [place]) Exam Physical Exam Vital signs: Temp Pulse BP 97.1 F L 99 H 157/84 H 04/24/21 19:17 04/24/21 20:25 04/24/21 20:25 Narrative: Patient had initially improved in the 160s, 170 over 90s range with improvement after an additional 200 mg of oral labetalol, followed by hydralazine 5 mg and 10 mg sequentially. Detailed Labor and Delivery Exam Mora Score: Cervical Points Exam 0 1 2 3 Dilation Closed 1-2cm 3-4 cm 5-6cm Effacement 0-30% 40-50% 60-70% 80% Consistency Firm Medium Soft Station -3 -2 -1,0 +1,+2 Position Posterior Mid Anterior Pooling: Negative Contraction Frequency(min): None Comments: Patient having no contractions or leak of fluid. Cervical exam not performed today. Fetus A Heart Rate Baseline: 160 Monitor Accelerations: 15 X 15 Variability: Moderate (6-25 BPM) Categories: Category I Est. Weight: 4 lb Detailed HEENT Exam Head: Present normocephalic Eye: Present EOMI and PERRL Neck Exam Neck Exam: Normal Detailed Neck Exam Neck exam general surgery: Absent tenderness or swelling Respiratory Exam Respiratory Exam: Normal Detailed Respiratory Exam Respiratory: Present CTA bilaterally; Absent accessory muscle use or decreased breath sounds Cardiovascular Exam Cardiovascular Exam: Normal Detail Cardiovascular Exam Cardiovascular: Present RRR, S1 and S2; Absent murmur Abdominal Exam Abdominal Exam: Normal Detailed Abdominal Exam Abdominal: Present soft; Absent tenderness, guarding, firm or rigid Extremities Exam Extremities Exam: Normal Detailed Extremities Exam Extremities: Present edema (1+ bilateral); Absent cyanosis, clubbing or calf tenderness Detailed Neurological Exam Neurological: Present alert, oriented X3 and CN II-XII intact; Absent motor deficit or normal reflexes (3+ bilateral no clonus) DetailedPsychiatric Exam Psychiatric: Present normal affect and normal thought process; Absent anxious or agitated Results Abnormal Lab Findings: Studies earlier today were normal. Urine creatinine ratio was 0 point she 1 stable from earlier in the first trimester of 0.2. Risk Assessment Risk for Shoulder Dystocia Historical/Initial OB: POSITIVE FOR: Pre- BMI>30; NEGATIVE FOR: Pelvic Abnormality, Previous Shoulder Dystocia or Previous Macrosomia Risk for Pre-Eclampsia Yes, if one or more: POSTIVE FOR: Hx Pre-E/Gest HTN, Chronic HTN and Renal Disease; NEGATIVE FOR: Multiple Gestation, Pre-gestational DM, Systemic Lupus or APA Syndrome Yes, if 2 or more: POSITIVE FOR: Age>= 35 yrs, >10yr btwn pregnancies and BMI>30; NEGATIVE FOR: Nulliparity, ethinicty, Mother/Sister w/ Pre-E or Previous IUGR Risk for Post- Hemorrhage Initial: POSITIVE FOR: Previous PPH; NEGATIVE FOR: Multiple Gestation, Known Clotting Deficiency, Grand Multiparity or Anticoagulation Risks Reviewed Risks Reviewed Upon Admission: Yes
[2021-04-24] MEDS: MAGNESIUM SULFATE 4 GM/100 ML BAG 300 GM (20:51)
[2021-04-24] MEDS: Betamet Acet/Betamet Na Ph Inj. 30 MG/5 ML 12 MG IM (20:58)
[2021-04-24] MEDS: MAGNESIUM SULFATE 20 GM/500 ML BAG IV (21:08)
[2021-04-24 21:24] LABS: HCT 31.7 % (36.0-46.0); HGB 10.7 g/dL (11.2-15.7); MCH 30.1 pg (27.0-33.0); MCHC 33.8 % (32.0-36.0); MCV 89.3 fL (80-95); MPV 9.4 fL (8.0-11.0); Platelet Count 300 10^3/uL (130-400); RBC 3.55 10^6/uL (3.93-5.22); RDW 14.5 % (11.7-14.6); RDW-SD 46.2 fL; WBC 12.56 10^3/uL (4.4-10.8)
[2021-04-24 21:31] LABS: ALT 25 U/L (14-59); AST 17 U/L (15-37); Albumin 2.6 g/dL (3.4-5.0); Alkaline Phosphatase 90 U/L (46-116); Anion Gap 14.4 mmol/L (3-11); BUN 11 mg/dL (7-18); Bilirubin, Total 0.4 mg/dL (0.2-1.0); CO2 15.6 mmol/L (21.0-32.0); CREATININE 0.8 mg/dL (0.55-1.02); Calcium 8.4 mg/dL (8.5-10.1); Chloride 102 mmol/L (98-107); Glucose 107 mg/dL (74-106); Magnesium 3.4 mg/dL (1.8-2.4); Potassium 3.6 mmol/L (3.5-5.1); Sodium 132 mmol/L (136-145); Total Protein 6.7 g/dL (6.4-8.2)
--- NOTE | 2021-04-24 22:23 | NUR.NOTE ---
Nursing Note: 2200 Pt taken by EMS to [facility]. Report given to paramedics. FHR and TOCO monitors removed per Dr Cowan. IVF and IV MG continued. Pt stable for transport. Report called in to [facility] RN.
== END 2021-04-24 21:50 | disposition short-term general hospital (02) | DRG 832 ==
LOC: OBS 20:39 → BCD 04-25 15:49
PROVIDERS: Admitting Provider Obstetrics & Gynecology; PCP Family Medicine; Visit Provider Obstetrics & Gynecology
DX: O11.3 Pre-existing hypertension with pre-eclampsia, third trimester (principal); K51.90 Ulcerative colitis, unspecified, without complications; Z3A.33 33 weeks gestation of pregnancy; O10.013 Pre-existing essential hypertension complicating pregnancy, third trimester; O10.213 Pre-existing hypertensive chronic kidney disease complicating pregnancy, third trimester; I12.9 Hypertensive chronic kidney disease with stage 1 through stage 4 chronic kidney disease, or unspecified chronic kidney disease; N18.31 Chronic kidney disease, stage 3a; O24.414 Gestational diabetes mellitus in pregnancy, insulin controlled; F32.9 Major depressive disorder, single episode, unspecified; O09.523 Supervision of elderly multigravida, third trimester; O99.343 Other mental disorders complicating pregnancy, third trimester; O99.613 Diseases of the digestive system complicating pregnancy, third trimester
CPT/HCPCS: 36415; 80053; 85027; 86850; 86900; 86901; 59025; 83735; G0378; J0360; J0702; J3475

== ENCOUNTER → 2021-05-29 03:10 | Outpatient (CLI) | payer MEDICAID, SELFPAY ==
--- NOTE | 2021-05-29 06:45 | DI.US_ITS ---
Exam(s) US ABDOMEN EXAM: US ABDOMEN CLINICAL HISTORY: fullness when standing and sitting,ruq abd mass,r19.01 TECHNIQUE: Ultrasound abdomen performed using standard protocol. COMPARISON: US RENAL ULTRASOUND(P) {[id number]} from 01/26/2015 CT ABD PELVIS WITH CONTRAST from 04/16/2016 FINDINGS: ABDOMINAL AORTA AND IVC: Visualized portions normal caliber. PANCREAS: Normal where visualized. LIVER: Normal. Hepatopedal flow in the Portal Vein. GALLBLADDER:Status post cholecystectomy. BILIARY SYSTEM: Common bile duct measures < 7 mm. No intrahepatic biliary ductal dilation. KIDNEYS: Kidneys are symmetric in size. There is a 5 mm echogenic focus in the left kidney consistent with a nonobstructing stone. No evidence of hydronephrosis. No renal mass or cyst identified. SPLEEN: Not enlarged. ASCITES: None seen. The anterior abdominal wall was evaluated sonographically. No anterior abdominal wall hernia is appr eciated. IMPRESSION: 1. No acute abdominal pelvic process. 2. Status post cholecystectomy. 3. Findings suspicious for nonobstructing left renal stone. DATA REPOSITORY:
== END ==
PROVIDERS: PCP Family Medicine; Visit Provider Obstetrics & Gynecology Gynecology
DX: R19.01 Right upper quadrant abdominal swelling, mass and lump (principal); Z90.49 Acquired absence of other specified parts of digestive tract; N20.0 Calculus of kidney
CPT/HCPCS: 76700

== ENCOUNTER 2021-06-04 12:54 | Outpatient (REF) | payer MEDICAID, SELFPAY ==
[2021-06-04 16:58] LABS: HCT 38.3 % (36.0-46.0); HGB 12.6 g/dL (11.2-15.7); MCH 29.4 pg (27.0-33.0); MCHC 32.9 % (32.0-36.0); MCV 89.5 fL (80-95); MPV 9.4 fL (8.0-11.0); Platelet Count 300 10^3/uL (130-400); RBC 4.28 10^6/uL (3.93-5.22); RDW 12.6 % (11.7-14.6); RDW-SD 41.1 fL; WBC 5.66 10^3/uL (4.4-10.8)
[2021-06-04 17:32] LABS: Anion Gap 11.8 mmol/L (3-11); BUN 16 mg/dL (7-18); CO2 24.2 mmol/L (21.0-32.0); Calcium 9.3 mg/dL (8.5-10.1); Chloride 104 mmol/L (98-107); Estimated GFR 59.69 (mL/min/1.73m2); Glucose 104 mg/dL (74-106); Potassium 4.2 mmol/L (3.5-5.1); Sodium 140 mmol/L (136-145)
== END 2021-06-04 12:55 | disposition home or self-care (01) ==
LOC: NCHCN 12:54
PROVIDERS: PCP Family Medicine; Visit Provider Family Medicine
DX: I10 Essential (primary) hypertension (principal); N18.31 Chronic kidney disease, stage 3a
CPT/HCPCS: 80048; 85027

== ENCOUNTER 2021-06-07 14:22 | Emergency (ER) | payer MEDICAID, SELFPAY ==
[2021-06-07 14:25] VITALS: BP 157/100; PULSE 89; RESP 14; TEMP 36.9; O2SAT 100
--- NOTE | 2021-06-07 14:52 | W.ED.GENAD ---
Discharge Plan Disposition Patient Disposition: HOME Condition: Stable Discharge Details Clinical Impression: Epistaxis Primary Care Provider: Cielo Goncalves ED Provider: Bell Hernadnez Home Meds and New Rx's Prescriptions: Continued mesalamine [Apriso] 0.375 gram capsule,extended release 24hr 1.5 gm PO QAM 0RF prenat.vits,caroline,[id number] Tablet 1 tab PO DAILY 0RF Digestive Advantage Prob Gummy 250 million cell tablet,chewable 500 cell PO DAILY 0RF Label Comments: pt unsure of brand/ kind of probiotic amlodipine 5 mg tablet 5 mg PO HS 0RF Label Comments: TAKE ONE TABLET BY MOUTH EVERY DAY famotidine 20 mg tablet 20 mg PO DAILY 0RF Label Comments: TAKE ONE TABLET BY MOUTH EVERY DAY Discharge Instructions Instructions: Nosebleed (ED) Additional Instructions: You are being sent home with Afrin nasal spray to use as directed if you have any further nosebleeds. If you develop a nosebleed again, apply your nasal clamp. You can also apply ice packs to your forehead. If you have continued bleeding, you can spray 1 to 2 sprays of Afrin in the affected nostril and reapply the clamp. If you have any further bleeding, you can consider to blow out any blood clots. If you have no relief with these measures, you can return to the emergency department for further evaluation. Continue to monitor your blood pressure and take your amlodipine this evening. Call your primary care doctor's office tomorrow to schedule a follow-up appointment for re-evaluation. Return immediately to the emergency department if you develop any worsening or new concerning symptoms. Discharge Data Discharge Physician: Bell Hernandez Medical Decision Making 46yo F presents as with a history of hypertension presents for nosebleed for the past 4 hours. Sent from [facility] after no relief with Afrin and nasal clamp. Vitals within normal limits. Clamp removed and patient was able to blow out a large blood clot from the right nose. No bleeding or source of bleeding identified. No blood in posterior oropharynx. We will continue to monitor without clamps. As she is asymptomatic and is hemodynamically stable, do not see an indication for lab work at this time. Patient monitored for approximately 1 hour and had no further nosebleeds. She remains asymptomatic. Her blood pressure is 154/97. She states her blood pressure is usually a systolic of 130s. She states she takes amlodipine in the evening. She is advised to check her blood pressure this evening and take her amlodipine as directed and call her primary care doctor tomorrow for any further recommendations regarding blood pressure management. She was given Afrin and nasal clamp to go if needed. Usual and customary return precautions given prior to discharge. Medical Records Medical records reviewed: Yes I reviewed the patient's medical records. HPI General Mode of arrival: ambulatory. Date/Time Provider Initiated Documentation: 06/07/21 14:52. Limitations to Documentation: no limitations. Information obtained by: patient. HPI Narrative: Patient is a 46-year-old female with a history of hypertension who presents with nosebleed since 1130 this morning. Patient states the nosebleed has been constant for the past 4 hours from her right side and then started on her left side. She states she went to [facility] and had Afrin sprayed and clamp applied without relief. She states she had 2 nosebleeds in the last 2 weeks which lasted approximately 10 minutes and then resolved on the right side. She denies any headache, chest pain, shortness of breath or dizziness. She states she has oil for heat at home and denies any blowing air, recent nose picking or any nose injury or history of anticoagulation. Related Data Home Medications Medication Instructions Recorded Confirmed mesalamine 0.375 gram 1.5 gm PO QAM 01/15/19 06/07/21 capsule,extended release 24 hr (Apriso) Bacillus coagulans 250 million 500 cell PO DAILY 12/19/20 06/07/21 cell chewable tablet (Digestive Advantage Probiotic Gummy) prenat.vits,caroline,[id number]-[id number]-ately 1 tab PO DAILY 12/19/20 06/07/21 amlodipine 5 mg tablet 5 mg PO HS 06/07/21 06/07/21 famotidine 20 mg tablet 20 mg PO DAILY 06/07/21 06/07/21 Allergies Allergy/AdvReac Type Severity Reaction Status Date / Time sulfamethoxazole Allergy Severe joints Unverified 06/07/21 14:38 [From Bactrim] swell trimethoprim [From Bactrim] Allergy Severe joints Unverified 06/07/21 14:38 swell hyoscyamine AdvReac Skin Rash Unverified 06/07/21 14:38 CT Contrast AdvReac Skin Rash Uncoded 06/07/21 14:38 General Stated Complaint: Epistaxis MARY: 3 Review of Systems All systems reviewed & are unremarkable except as noted in HPI and below Constitutional Constitutional: Reports as per HPI, Denies chills and Denies fever(s) Eyes Eyes: Denies blurry vision ENT Ears, Nose, Mouth, and Throat: Denies dizziness, Reports epistaxis, Denies sore throat and Denies throat swelling Cardiovascular Cardiovascular: Denies chest pain and Denies dyspnea Respiratory Respiratory: Denies cough and Denies dyspnea Gastrointestinal Gastrointestinal: Denies abdominal pain, Denies diarrhea and Denies vomiting Genitourinary Genitourinary: Denies hematuria and Denies dysuria Musculoskeletal Musculoskeletal: Denies back pain and Denies numbness Integumentary/Breasts Skin/Breast: Denies lesions and Denies rash Neurologic Neurologic: Denies dizziness, Denies localized weakness and Denies numbness Allergic/Immunologic Allergic/Immunologic: Denies throat swelling PFSH All Active Problems (Updated 06/07/21 @ 15:53 by Bell Hernandez DO) Epistaxis (Acute) Delivery by section using transverse incision of lower segment of uterus (Acute) 04/29/2021. [facility] [place] 4W 1D E[place]. Preeclampsia imposed on chronic hypertension. Female 6 pounds 1 ounce (275 0 g) Paige May Hypertension (Chronic 01/23/15) RUQ abdominal mass (Acute) care and examination of lactating mother (Acute) Hypertension (Chronic) Numbness of right hand (Acute) Ulcerative colitis (Chronic) Takes Apriso, Sees Dr. Clay in [facility] Chronic kidney disease (CKD) stage G3a/A1, moderately decreased glomerular filtration rate (GFR) between 45-59 mL/min/1.73 square meter and albuminuria creatinine ratio less than 30 mg/g (Acute) Medical History (Updated 06/07/21 @ 15:53 by Bell Hernandez DO) BMI 36.0-36.9,adult Clostridium difficile colitis Depression prozac in the past History of cardiac arrhythmia during surgery only, follow up testing negative IUD surveillance (01/23/15) Surgical History Hx of cholecystectomy Previous back surgery heart arrhythmia during surgery S/P hernia surgery S/P knee surgery Family History Father Hypertension Parkinsons disease ?PSP Diabetes Mother Hypertension Rheumatoid arthritis Thyroid disease Maternal Grandmother Diabetes Paternal Grandmother Diabetes Maternal Grandfather Hypertension Social History Smoking/Tobacco Use Status: Never Smoking risk assessment performed?: Yes Alcohol Intake: never Drug use: Never Substance use type: does not use Do you feel safe at home: Yes Do you feel safe in your relationship?: Yes History History 8 Para 5 Hx # Term Pregnancies 5 Multiple births Hx # Pregnancies Ectopic pregnancies AB induced Hx Number of Living Children AB spontaneous 3 Past Pregnancies Del. Date GA/Weeks # Outcome Route Wgt Sex Labor Lgth Anesthesia Location Prov Complic 05/23/96 36 No Successful vaginal 2721.554 g Female local [facility] 10/21/98 40 No Successful vaginal 3827.186 g Male [facility], [facility] hemorrhage 08/27/01 40 No Successful vaginal 3742.137 g Male Ivanna 09/28/05 40 No Successful vaginal Male short Ivanna 04/29/21 34 No Successful Female [facility] [place] Date: 05/23/96 Last Updated by: Leigha Roberson CNM PROM preeclampsia Delivery Date: 10/21/98 Last Updated by: Leigha Roberson CNM Saulo, hemorrhage Delivery Date: 08/27/01 Last Updated by: Leigha Roberson CNM Stevan Delivery Date: 09/28/05 Last Updated by: Leigha Roberson CNM Adelso Delivery Date: 04/29/21 Last Updated by: Herbie Vincent. 34wk transfer [place] [facility] [place] P[place] with severe features, ECV for transverse lie, then IOL, the baby was transverse again and emergent CS was done. Maternal bradycardia to 27 during CS. Significant EBL during section but only received IV iron post-op (Hb 8). Baby home PPD#9. Exam Const General: cooperative, healthy appearing and no acute distress Orientation: alert, awake and oriented x3 HENMT Head: normal to inspection Ears: hearing grossly normal bilaterally and external ears normal General nose exam: external nose normal, no nasal discharge and no epistaxis Mouth: oral mucosae normal Throat: posterior oropharynx normal Eyes General: appearance normal, both eyes and all related structures Neck Neck: normal visual inspection Resp Effort & Inspection: normal respiratory effort and able to speak in complete sentences Auscultation: clear to auscultation bilaterally Cardio Rate: regular rate Rhythm: regular rhythm GI Palpation: soft, not firm, no guarding, not rigid and nontender Skin General skin exam: no rashes or lesions noted Neuro General: patient alert, patient awake and patient oriented x3 Motor: muscle tone normal throughout Extrem General: normal to inspection and full ROM Psych Appearance: grossly normal Affect: normal affect Course Vital Signs Vital signs: Vital Signs Temperature 98.4 F 06/07/21 14:25 Pulse 89 06/07/21 14:25 Respiratory Rate 14 06/07/21 14:25 Blood Pressure 157/100 H 06/07/21 14:25 Pulse Oximetry 100 06/07/21 14:25 Temperature 98.4 F 06/07/21 14:25 Temperature Source Skin 06/07/21 14:25 Pulse 89 06/07/21 14:25 Respiratory Rate 14 06/07/21 14:25 Respiratory Effort 06/07/21 14:37 Blood Pressure 157/100 H 06/07/21 14:25 Blood Pressure Position Sitting 06/07/21 14:25 Pulse Oximetry 100 06/07/21 14:25 Oxygen Delivery Method Room Air 06/07/21 14:25 Oxygen Flow Rate 0 06/07/21 14:25 Pain Level 5 06/07/21 14:25
[2021-06-07] MEDS: Oxymetazolone 0.05% SPRAY 15 ML BTL NS (15:59)
[2021-06-07 16:09] VITALS: BP 161/99; PULSE 88; RESP 17; TEMP 36.9; O2SAT 98
== END 2021-06-07 16:09 | disposition home or self-care (01) ==
PROVIDERS: Emergency Provider Physician Assistant; PCP Family Medicine
DX: R04.0 Epistaxis (principal)
CPT/HCPCS: 99282

== ENCOUNTER 2021-07-02 18:26 | Outpatient (REF) | payer MEDICAID, SELFPAY ==
[2021-07-02 21:52] LABS: Calculated LDL 99 mg/dL (<100); Cholesterol 197 mg/dL (<200); HDL Cholesterol 56 mg/dL (40-60); Triglyceride 213 mg/dL (<150)
[2021-07-02 21:53] LABS: Hemoglobin A1C 4.8 % (<5.7)
== END 2021-07-02 18:27 | disposition home or self-care (01) ==
LOC: NCHCN 18:26
PROVIDERS: PCP Family Medicine; Visit Provider Family Medicine
DX: I10 Essential (primary) hypertension (principal); R73.03 Prediabetes; Z13.220 Encounter for screening for lipoid disorders
CPT/HCPCS: 80061; 83036

== ENCOUNTER 2022-01-22 15:46 | Outpatient (REF) | payer MEDICAID, SELFPAY ==
[2022-01-22 16:20] LABS: Anion Gap 9.2 mmol/L (3-11); BUN 14 mg/dL (7-18); CO2 25.8 mmol/L (21.0-32.0); CREATININE 0.9 mg/dL (0.55-1.02); Calcium 8.8 mg/dL (8.5-10.1); Chloride 102 mmol/L (98-107); Estimated GFR 79.35 (mL/min/1.73m2); Glucose 89 mg/dL (74-106); Potassium 3.9 mmol/L (3.5-5.1); Sodium 137 mmol/L (136-145)
== END 2022-01-22 15:47 | disposition home or self-care (01) ==
LOC: NCHCN 15:46
PROVIDERS: PCP Family Medicine; Visit Provider Family Medicine
DX: I10 Essential (primary) hypertension (principal); N18.31 Chronic kidney disease, stage 3a; R73.03 Prediabetes
CPT/HCPCS: 80048; 83036

== ENCOUNTER 2022-08-02 00:23 | Outpatient (CLI) | payer MEDICAID, SELFPAY ==
--- NOTE | 2022-08-02 08:37 | DI.MAMMO_ITS ---
Exam(s) MAMMO SCREENING EXAM: MAMMO SCREENING CLINICAL HISTORY: screening,z12.39 TECHNIQUE: Bilateral full field digital CC and MLO mammographic images were obtained with 3D tomosyn thesis and utilizing computer aided detection (CAD). COMPARISON: Available for comparison. FINDINGS: Masses/Architectural Distortion: None seen. Microcalcifications: No suspicious pleomorphic-type are seen. Skin Thickening/Nipple Retraction: None. IMPRESSION: 1. No significant interval change with no specific features of malignancy noted. 2. Unless there is more urgent need, screening mammography is recommended, as per [place] guidelines. BI-RADS Category 1 - Negative Breast Density - Category C - Heterogeneously dense Breast density category C or D implies that the patient has dense breast tissue. Dense breast tissue is very common and is not abnormal but dense breast tissue can make it harder to find cancer on a ma mmogram. Also, dense breast tissue may increase their breast cancer risk. This information about the result of the mammogram report was provided to the patient to raise their awareness. Use this report when you speak with the patient about their risks for breast cancer, which includes their family hist ory. At that time, you may recommend for more screening tests (Ultrasound or MRI) as they might be us eful based on their risk. A negative radiographic report should not delay biopsy if a dominant or clinically suspicious mass is present. Up to ten percent of cancers are not identified on mammography. A negative report may reinforce clinical impression. Adenosis and dense breasts may obscure an underlying neoplasm. False positive reports average 6 to 10%. Patient will receive a letter notifying them of these results.
== END 2022-08-02 00:43 ==
LOC: DI 00:24
PROVIDERS: PCP Family Medicine; Visit Provider Obstetrics & Gynecology
DX: Z12.31 Encounter for screening mammogram for malignant neoplasm of breast (principal)
CPT/HCPCS: 77063; 77067

== ENCOUNTER 2023-01-24 18:18 | Outpatient (REF) | payer MEDICAID, SELFPAY ==
[2023-01-24 15:23] LABS: BUN 13 mg/dL (7-18); CREATININE 0.8 mg/dL (0.55-1.02); Calcium 8.4 mg/dL (8.5-10.1); Chloride 105 mmol/L (98-107); Estimated GFR 90.83 (mL/min/1.73m2); Glucose 99 mg/dL (74-106); Sodium 139 mmol/L (136-145)
[2023-01-24 17:21] LABS: Hemoglobin A1C 5.1 % (<5.7)
== END 2023-01-24 18:19 | disposition home or self-care (01) ==
LOC: NCHCN 18:18
PROVIDERS: PCP Family Medicine; Visit Provider Family Medicine
DX: I10 Essential (primary) hypertension (principal); R73.03 Prediabetes
CPT/HCPCS: 80048; 83036

== ENCOUNTER 2024-01-26 11:44 | Outpatient (REF) | payer MEDICAID, SELFPAY ==
--- OUTSIDE RECORDS SUMMARY | 2024-01-26 11:47 | XMS_ITS | Clinical Summary ---
Author Organization [facility] [place] [address] Care Team Providers Care Analytics Specialist Name Role Phone Cielo Goncalves MD Primary Care Provider Allergies Active Allergy Reactions Criticality Noted Date Comments Diatrizoate Meglumine Rash 01/17/2020 Other reaction(s): Skin Rash Hyoscyamine 11/01/2020 Other reaction(s): Skin Rash Sulfamethoxazole High 11/01/2020 Other reaction(s): joints swell Trimethoprim High 11/01/2020 Other reaction(s): joints swell Medications Medication Sig Dispensed Refills Start Date End Date Status triamcinolone (Kenalog) 0.1 % Ointment APPLY A SMALL AMOUNT TO SKIN TWICE DAILY 07/31/2020 Active mesalamine ER (Apriso) 0.375 gram Capsule, Sust. Release 24 hr Take by mouth. 01/15/2019 Active vit/iron fum/folic ac ( 1+1 ORAL) Take by mouth. A ctive lactobacillus rhamnosus, GG, (CULTURELLE) 10 billion cell Capsule Take 1 capsule by mouth daily. Active labetaloL (Normodyne) 300 mg Tablet Take 2 tablets by mouth 3 times daily. 180 tablet 2 05/04/2021 Active acetaminophen (Tylenol) 325 mg Tablet Take 2 tablets by mouth every 6 hours. 30 tablet 1 05/04/2021 Active ibuprofen (Advil) 600 mg Tablet Take 1 tablet by mouth every 6 hours as needed for Pain. 30 tablet 12 05/04/2021 Active NIFEdipine CC (Adalat CC) 30 mg Tablet Sustained Release Take 1 tablet by mouth 2 times daily. 30 tablet 2 05/04/2021 Active vitamin 27 & [id number] 60 mg iron-1 mg Tablet Take 1 tablet by mouth daily. 90 tablet 3 05/05/2021 Active senna-docusate (Pericolace) 8.6-50 mg Tablet Take 2 tablets by mouth 2 times daily. 60 tablet 11 05/04/2021 Active labetaloL (Normodyne) 300 mg Tablet Take 2 tablets by mouth 3 times daily. 180 tablet 1 05/04/2021 Active Active Problems Problem Noted Date Diagnosed Date BMI 36.0-36.9,adult 04/25/2021 Depression 04/25/2021 History of cardiac arrhythmia 04/25/2021 Hypertension 11/16/2020 Ulcerative colitis 11/16/2020 CKD (chronic kidney disease) stage 3, GFR 30-59 ml/min 11/16/2020 Acne vulgaris 05/16/2011 Resolved Problems Problem Noted Date Diagnosed Date Resolved Date Spontaneous 04/25/2021 022 Preeclampsia, severe 04/24/2021 022 AMA (advanced maternal age) multigravida 35+ 06/05/2021 History of premature rupture of membranes (PROM) in previous , currently , first trimester 11/16/202005/25 Immunizations Name Administration Dates Next Due Covid-19 Monovalent (Moderna Spikevax) 12yrs+ ([id number]) 07/16/2020,06/18/2020 Family History Medical History Relation Comments Hypertension Father Diabetes Maternal Grandmother Hypertension Mother Diabetes Paternal Grandmother Relation Status Comments Father Maternal Grandmother Mother Paternal Grandmother Social History Tobacco Use Types Packs/Day Years Used Date Smoking Tobacco: Never Smokeless Tobacco: Never Alcohol Use Standard Drinks/Week Comments Not Currently 0 (1 standard drink = 0.6 oz pur e alcohol) Sex and Gender Information Value Date Recorded Sex Assigned at Female 05/03/2021 8:13 PM EST Gender Identity Female 05/03/2021 8:13 PM EST Sexual Orientation Not on file Last Filed Vital Signs Vital Sign Reading Time Taken Comments Blood Pressure 117/70 05/06/2021 12:40 PM EDT Pulse 79 05/06/2021 12:40 PM EDT Temperature 36.6 ??C (97.9 ??F) 05/06/2021 12:40 PM E DT Respiratory Rate 16 05/06/2021 12:40 PM EDT Oxygen Saturation 99% 05/04/2021 8:30 AM EST Inhaled Oxygen Concentration - - Weight 93 kg (205 lb 0.4 oz) 04/30/2021 6:00 AM EST Height 157.5 cm (5' 2) 04/24/2021 11:41 PM EST Body Mass Index 37.5 04/24/2021 11:41 PM EST Plan of Treatment Health Maintenance Due Date Last Done Comments CT Colonography 1975 Colonoscopy 1975 Colorectal Cancer Screening 1975 FIT DNA 1975 FIT 1975 Sigmoidoscopy (10 year) with FIT yearly 1975 Sigmoidoscopy 1975 Lipid Screening 1993 Hepatitis B vaccine (0-59 yrs) (1) 1994 Tetanus/Diphtheria/Pertussis Vaccines (1 - Tdap) 1994 HPV test 2005 PAP Smear 2005 Breast Cancer Share Decision Needed 2015 Breast Cancer screening 2015 Covid-19 Vaccine (3 - 2023-2 5 season) 2023 07/16/2020, 06/18/2020 Influenza (Flu) vaccine (1 o f 1 - Influenza standard series) 10/26/2023 Diabetes Screening (HgbA1C o r Glucose) 04/29/2024 04/29/2021, 04/28/2021, 04/28/2021, Additional history exists HIV screen Completed 11/27/2020 Hepatitis C Screening Completed 11/27/2020 Procedures Procedure Name Priority Date/Time Associated Diagnosis Comments COMPREHENSIVE METABOLIC PANEL Routine 04/29/2021 8:50 AM EST HIV SCREEN, 4TH GENERATION (MC/CGP/APD/NLH) Routine 11/27/2020 11:01 AM EDT Supervision of high risk in first trimester Multigravida of advanced maternal age in first trimester HC HEPATITIS C ANTIBODY Routine 11/27/2020 11:01 AM EDT Supervision of high risk in first trimester Multigravida of advanced maternal age in first trimester from Last 3 Months or Most Recently Relevant to Health Maintenance Results * (ABNORMAL) Comprehensive metabolic panel (non-fasting) (04/29/2021 8:50 AM EST) Glucose 111 65 - 199 mg/dL [facility] Comment:Diabetes: >=200 mg/d L plus symptoms Blood Urea Nitrogen 13 8 - 18 mg/dL [facility] Creatinine 0.68(L) 0.70 - 1.20 mg/dL [facility] Sodium 130(L) 135 - 145 mmol/L [facility] Potassium 4.0 3.5 - 5.0 mmol/L [facility] Comment: Please note: ??Patients with WBC >100,000 may have falsely elevated Potassium levels. ??For accurate Potassium quantification in these patients send serum separator tube (gold top) for subsequent determinations. ??Contact the Clinical Chemistry Laboratory if there are any questions. Chloride 101 98 - 107 mmol/L [facility] Carbon Dioxide 16(L) 22 - 31 mmol/L [facility] Anion Gap 13 5 - 15 mmol/L [facility] Calcium 7.5(L) 8.5 - 10.5 mg/dL [facility] Comment:result rechecked-ruth Protein, Total 6.9 6.1 - 8.0 g/dL [facility] Albumin 3.6 3.2 - 5.2 g/dL [facility] Aspartate Aminotransferase 21 0 - 30 unit/L [facility] Alanine Aminotransferase 28 0 - 30 unit/L [facility] Alkaline Phosphatase 99 35 - 105 unit/L [facility] Bilirubin, Total 0.4 0.2 - 1.3 mg/dL [facility] Est Glomerular Filtration Rate 105 >=60 mL/min/1. 73 m?? [facility] Comment: This patient? s estimated glomerular filtration rate (eGFR) is between 105 mL/min/1.73 m2 (patients with less muscle mass) and 122 mL/min/1.73 m2 (patients with more muscle mass) as determined by the CKD-EPI equation. Assessment of eGFR is not appropriate when creatinine concentrations are rapidly changing. For clinical decisions where creatinine clearance will affect therapy, a 24-hour urine creatinine clearance may be advised. Assignment of CKD stage 1 - 5 for patients with an eGFR near the transition point between stages may be based on clinical assessment of muscle mass and symptoms in addition to eGFR. Blood No Charge / Unknown 04/29/2021 8:50 AM EST 04/29/2021 9:02 AM EST Narrative Resulting Agency Comment Spec In Lab Mandie Aguilera MD CHEMISTRY ORDERABLES Performing Organization Address [facility]/ZIP Co de Phone Number [facility] [place] [address] * Hepatitis C Antibody (11/27/2020 11:01 AM EDT) Hepatitis C Antibody Negative Negative [facility] Blood 11/27/2020 11:0 1 AM EDT 11/27/2020 11:22 AM EDT Narrative Resulting Agency Comment Spec In Lab Darline Martinez MD CHEMISTRY ORDERABL ES Performing Organization Address [facility] Co de Phone Number [facility] [place] [address] * HIV Screen, 4th Generation ([facility]/CGP/APD/NLH) (11/27/2020 11:01 AM EDT) HIV Ab/Ag Screen Negative Negative [facility] Comment: This 4th Generation HIV test screens for the presence of the HIV-1 p24 antigen as well as antibodies reactive against HIV-1 and HIV-2. A negative screen does not rule out an acute HIV infection. If acute HIV infection is suspected, testing should be repeated in 2 - 3 weeks or HIV nucleic acid testing performed. HIV Comment Low Risk of HIV Infection [facility] Blood 11/27/2020 11:0 1 AM EDT 11/27/2020 11:22 AM EDT Narrative Resulting Agency Comment Spec In Lab Darline Martinez MD CHEMISTRY ORDERABL ES [facility] [place] [address] from Last 3 Months or Most Recently Relevant to Health Maintenance Advance Directives * Attempt Cardiopulmonary Resuscitation - Inpatient (Latest Code Status on File) Date Activated Date Inactivated Comments 04/24/2021 11:40 PM 05/04/2021 8:50 PM Question Answer Comments Code Status decision made by: Patient Care Teams Analytics Specialist Relationship Specialty Start Date End Date Cielo Goncalves MD [facility] [address] [place] [address] PCP - General 01/16/10
--- OUTSIDE RECORDS SUMMARY | 2024-01-26 11:47 | XMS_ITS | Encounter Summary ---
Author Organization Formerly [facility], [facility]–1983 Address [facility] [place] [address] Care Team Providers Care Roller Coaster Designer Name Role Phone Cielo Goncalves MD Primary Care Provider [phone] Encounter Details Date Type Department Care Team (Late st Contact Info) Description 06/05/2021 Telephone Obstetrics [place] [phone] Mandie Aguilera MD [facility] [address] OBSTETRICS & [place] [address] Social History Tobacco Use Types Packs/Day Years Used Date Smoking Tobacco: Never Smokeless Tobacco: Never Alcohol Use Standard Drinks/Week Comments Not Currently 0 (1 standard drink = 0.6 oz pur e alcohol) Sex and Gender Information Value Date Recorded Sex Assigned at Female 05/03/2021 8:13 PM EST Gender Identity Female 05/03/2021 8:13 PM EST Sexual Orientation Not on file documented as of this encounter Miscellaneous Notes * Telephone Encounter - Mandie Aguilera - 06/05/2021 11:48 AM EDT Spoke with Nilda Parish about her [employer] results, which showed: Conclusion(s): 1. Predominant rhythm is sinus rhythm with limited diurnal variation. 2. Rare ectopy 3. No pauses, high degree AV block, or atrial fibrillation seen. 4. Trigger events correlate with sinus rhythm without ectopy. 5. No sustained arrhythmias. Will forward that report to her PCP, Cielo Goncalves MD, and encouraged her to follow up with PCP, especially for any unusual symptoms. She reports that her baby is up to 8 lbs and doing well! She followed up closer to home for follow up and is doing well. She works with her PCP for blood p ressure management. Mandie Aguilera MD, PGY-3 06/05/2021 11:49 AM documented in this encounter Plan of Treatment Not on file documented as of this encounter Visit Diagnoses Not on filedocumented in this encounter Care Teams Roller Coaster Designer Relationship Specialty Start Date End Date Cielo Goncalves MD [address] [place] [address] [facility] [address] [place] [address] PCP - General 01/16/10 documented as of this encounter
--- OUTSIDE RECORDS SUMMARY | 2024-01-26 11:47 | XMS_ITS | Encounter Summary ---
[place] [address] Care Team Providers Care Mechanical Maintenance Worker Name Role Phone Cielo Goncalves MD Primary Care Provider [phone] Reason for Visit * Auth/Cert Specialty Diagnoses / Procedures Referred By Contmonico t Referred To Contact Diagnoses preeclampsia Procedures EMERGENCY IPI Referral ID Status Reason Start Date Expiration Date Visits Re quested Visits Authorized [id number] 1 1 Encounter Details Date Type Department Care Team (Latest Contact Info) Description 05/06/2021 12:15 PM EDT - 05/06/2021 12:43 PM EDT [place] [phone] Modesta Jaquez MD [facility] DR OBSTETRICS [place] [address] Discharge Disposition: Home Social History Tobacco Use Types Packs/Day Years [...] on file documented as of this encounter Last Filed Vital Signs Vital Sign Reading Time Taken Comments Blood Pressure 117/70 05/06/2021 12:40 PM EDT Pulse 79 05/06/2021 12:40 PM EDT Temperature 36.6 ??C (97.9 ??F) 05/06/2021 12:40 PM E DT Respiratory Rate 16 05/06/2021 12:40 PM EDT Oxygen Saturation - - Inhaled Oxygen Concentration - - Weight - - Height - - Body Mass Index - - documented in this encounter Medications at Time of Discharge Medication Sig Dispensed Refills Start Date End Date labetaloL (Normodyne) 300 mg Tablet Take 2 tablets by mouth 3 times daily. 180 tablet 2 05/04/2021 acetaminophen (Tylenol) 325 mg Tablet Take 2 tablets by mouth every 6 hours. 30 tablet 1 05/04/2021 ibuprofen (Advil) 600 mg Tablet Take 1 tablet by mouth every 6 hours as needed for Pain. 30 tablet 12 05/04/2021 NIFEdipine CC (Adalat CC) 30 mg Tablet Sustained Release Take 1 tablet by mouth 2 times daily. 30 tablet 2 05/04/2021 vitamin 27 & [id number] 60 mg iron-1 mg Tablet Take 1 tablet by mouth daily. 90 tablet 3 05/05/2021 senna-docusate (Pericolace) 8.6-50 mg Tablet Take 2 tablets by mouth 2 times daily. 60 tablet 11 05/04/2021 labetaloL (Normodyne) 300 mg Tablet Take 2 tablets by mouth 3 times daily. 180 tablet 1 05/04/2021 triamcinolone (Kenalog) 0.1 % Ointment APPLY A SMALL AMOUNT TO SKIN TWICE DAILY 07/31/2020 mesalamine ER (Apriso) 0.375 gram Capsule, Sust. Release 24 hr Take by mouth. 01/15/2019 vit/iron fum/folic ac ( 1+1 ORAL) Take by mouth. lactobacillus rhamnosus, GG, (CULTURELLE) 10 billion cell Capsule Take 1 capsule by mouth daily. documented as of this encounter Progress Notes * Diana Moulton RN - 05/06/2021 12:43 PM EDT Pt to triage for BP. BP WNL. Plan to f/u in one week. MDs ok for DC. documented in this encounter Plan of Treatment Not on file documented as of this encounter Visit Diagnoses Not on filedocumented in this encounter Care Teams Mechanical Maintenance Worker Relationship Specialty Start Date End Date Cielo Goncalves MD [facility] [address] [place] [address] PCP - General 01/16/10 documented as of this encounter
--- OUTSIDE RECORDS SUMMARY | 2024-01-26 11:47 | XMS_ITS | Continuity of Care Document ---
Author Organization [facility] Address [address] [place] [address] Assessment No assessment recorded. Plan of Treatment Reminders Order Date Submit Date Provider Last Modified By Organization Details Last Modified Time Details Appointments Nurse Visit 20 2023 08:10A M [facility] Nursing Staff Not available Not available Not available Annual Wellness Exam 30 2023 09:20A M Cielo Nichols Not available Not available Not available Lab ferritin , serum or plasma 2022 024 [facility] (Registration ), [address] [place] [address] [place], [address], 01/26/2024 08:15:08 CBC 2022 024 [facility] (Registration ), [address] [place] [address] [place], [address], 01/26/2024 08:15:22 BMP, serum or plasma 2022 024 [facility] (Registration ), [address] [place] [address] [place], [address], 01/26/2024 08:17:07 Referral None recorded . Procedures None recorded . Surgeries None recorded . Imaging None recorded . Medication Orders None recorded . Patient TargetsNo targets recorded. Patient InstructionsNo instructions recorded. Reason for Referral None Reported. Problems Name Problem SNOMED Code Status Onset Date Resolution Date Notes Provider Name and Address Organization Details Recorded Time Prediabe sidney [id number] Completed 200701/31/2023 01/29/20 22 - Comments only - Cielo Nichols MD - Most recent labs WNL, repeat next year, strong FH of diabetes , doing a good job eating well and walking. Problem Code: R73.03; Problem Code Type: ICD-10; Removal Reason: A1C always normal, fasting sugars normal last few years. MD [address], [place], [address] , [facility] 3 13:20:23 Obesity 516047913 Active 200709/25/19 19 - Comments only - Albino Frank - Lost 6 pounds since last visit. Eating healthy is a struggle because and 2 younger children do not like eating vegetabl es. Is walking more and avoiding soda. [facility] ed. Problem Code: E66.9; Problem Code Type: ICD-10; MD [address], [place], [address] , [facility] 3 13:11:08 Eczema [id number] Active 1999 Problem Code: L30.9; Problem Code Type: ICD-10; MD [address], [place], [address] , [facility] 3 13:11:08 [facility] [id number] Active [address], [place], [address] , [facility] 3 13:14:38 Acne 02483798 Active 2008 Problem Code: L70.9; Problem Code Type: ICD-10; MD [address], [place], [address] , [facility] 3 13:12:20 Adult health examinat ion Active 2014 Problem Code: Z00.00; Problem Code Type: ICD-10; MD Shelia [address], [facility] [address] , [facility] 3 13:12:30 Impetigo 07909096 Completed 201401/23/2015 01/17/20 15 - Comments only - Cielo Nichols MD - Start Bactroba n 3 times daily to yellow crusty areas on face Problem Code: L01.00; Problem Code Type: ICD-10; Not Available [facility] 3 04:53:23 Fever 589125106 Completed 201504/21/2015 Problem Code: R50.9; Problem Code Type: ICD-10; Not Available [facility] 3 04:53:23 Nausea 331430216 Completed 201504/21/2015 04/05/19 16 - Comments only - Cielo Nichols MD - and fever. She really has no specific symptoms . Urine dip is a bit suspicio us, and if her urinalys is confirms bacteriu nkechi, I would start her on an antibiot ic. We'll wait for results for tomorrow . Otherwis e this may be the start of a viral gastroen teritis. Problem Code: R11.0; Problem Code Type: ICD-10; Not Available [facility] 3 04:53:23 Noninfec tious gastroen teritis 42227440 Completed 201604/22/2016 04/08/19 17 - Comments only - Cielo Nichols MD - Check stool cultures . Hold on antibiot ics. Return to clinic or present to emergenc y room if she develops severe abdomina l pain, or fevers. Not Available [facility] 3 04:53:23 Ulcerati ve colitis 67187059 Active 2016 Dr. Dean Problem Code: K51.90; Problem Code Type: ICD-10; MD [address], [place], [address] , [facility]. 3 13:20:59 Screenin g for malignan t neoplasm of breast Active 2018 Problem Code: Z12.39; Problem Code Type: ICD-10; MD [address], [place], [address] , [facility]. 3 13:20:36 Mitral valve regurgit ation 65859546 Active 2019 due for repeat ECHO 2024 Problem Code: I34.0; Problem Code Type: ICD-10; MD She[address], [place], [address] , [facility]. 3 13:19:11 Localize d eruption of skin 355052021 Completed 201912/16/2019 09/21/19 20 - Comments only - Piper Pate STOCKKEEPER - No improvem ent with clotrima zole. Now located just to labia. No satellit e lesions or extensio n of rash noted from last OV. Likely vulvar irritati on, as it responds well to hydrocor tisone. Prescrib ed triamcin olone cream 1% to be applied BID for up to 2 weeks and hydroxyz ine 25 mg for sleep. Advised pt to try to identify and eliminat e any potentia l irritant s (soaps, laundry detergen t, etc) and practice gentle skin care. May use cool compress es for comfort. Pt to call if any new/conc erning symptoms or if no improvem ent with triamcin olone cream. Problem Code: R21; Problem Code Type: ICD-10; Not Available [facility] 3 04:53:24 Pregnanc y 20477497 Completed 202011/03/2020 10/21/19 21 - Comments only - Cielo Nichols MD - By LMP she is 6 weeks 6 days. High risk given HTN, CKD, age and colitis. Referral s made to both [facility] and [facility] highway painter. OB ultrasou nd as soon as possible . Quantita tive HCG drawn today (recent TAB, would like baseline level in case she has any bleeding ) Problem Code: Z33.1; Problem Code Type: ICD-10; Not Available [facility] 3 04:53:25 Headache 48621712 Active 2021 Problem Code: R51.9; Problem Code Type: ICD-10; MD [address], [place], [address] , [facility] 3 13:16:16 Gastroes ophageal reflux disease without esophagi tis 567857735 Active 2021 Problem Code: K21.9; Problem Code Type: ICD-10; MD Shelia [address], [facility] [address] [facility] 3 13:15:52 Hyperlip idemia screenin g Completed 202107/16/2021 Problem Code: Z13.220; Problem Code Type: ICD-10; Not Available [facility] 3 04:53:25 Impaired fasting glycemia 771866184 Completed 200711/20/2022 Not Available [facility] 3 04:53:25 Pain of right knee joint 30721609163 4100 Completed 201709/01/2019 Problem Code: M25.561; Problem Code Type: ICD-10; Not Available [facility] 3 04:53:25 Streptoc occal sore throat 60380974 Completed 201404/05/2015 Problem Code: J02.0; Problem Code Type: ICD-10; Not Available [facility] 3 04:53:26 Melena [id number] Completed 201605/15/2016 Problem Code: K92.1; Problem Code Type: ICD-10; Not Available [facility] 3 04:53:26 Abdomina l pain 23646915 Completed 201605/15/2016 Problem Code: R10.9; Problem Code Type: ICD-10; Not Available [facility] 3 04:53:26 Intraute rine contrace ptive device in situ 708858885 Completed 200909/01/2019 Problem Code: Z97.5; Problem Code Type: ICD-10; Not Available [facility] 3 04:53:26 Acute stress disorder 52491894 Completed 201809/01/2019 Problem Code: F43.0; Problem Code Type: ICD-10; Not Available [facility] 3 04:53:26 Bleeding from nose 790022056 Completed 202101/28/2022 Problem Code: R04.0; Problem Code Type: ICD-10; Not Available [facility] 3 04:53:26 Heart murmur 18428168 Completed 201911/20/2022 Problem Code: R01.1; Problem Code Type: ICD-10; Not Available [facility] 3 04:53:27 Miscarri age without complica tion 56846998 Completed 201903/13/2020 Problem Code: O03.9; Problem Code Type: ICD-10; Not Available [facility] 3 04:53:27 Hyperten sive disorder 64125479 Completed 200811/20/2022 Not Available [facility] 3 04:53:27 Disorder of kidney and/or ureter 398813281 Completed 201408/03/2015 Problem Code: N28.9; Problem Code Type: ICD-10; Not Available [facility] 3 04:53:28 Pleuriti c pain 9717940 Completed 201903/13/2020 Problem Code: R07.81; Problem Code Type: ICD-10; Not Available [facility] 3 04:53:28 History of nutritio nal disorder 243821841 Completed 200711/20/2022 03/24/19 20 - Comments only - Cielo Nichols MD - She has had a couple of blood sugars over 100, unclear if those were fasting. With next set of labs will get fasting labs includin g glucose and hemoglob in A1c to clarify whether she meets criteria of prediabe sidney. Not Available [facility] 3 04:53:28 Contact dermatit is 19327721 Completed 201810/20/2020 Problem Code: L25.9; Problem Code Type: ICD-10; Not Available [facility] 3 04:53:28 Iron deficien cy anemia 91971327 Completed 201601/23/2017 Problem Code: D50.9; Problem Code Type: ICD-10; Not Available [facility] 3 04:53:29 Hypokale andrew 13568333 Completed 201701/28/2022 Problem Code: E87.6; Problem Code Type: ICD-10; Not Available [facility] 3 04:53:29 History of anemia - iron deficien t 772428733 Active 2022 CIELO NICHOLS MD [facility] [address], [place], [address] [facility] 3 13:11:56 Localize d eruption of skin 570624057 Active 202211/07/19 23 - Comments only - Cielo Nichols MD - Quite nonspeci fic. No internal vaginal itching or discharg e. Nonspeci fic findings , pruritus is the primary complain t. I have suggeste d treating her with oral fluconaz ole 1 dose now and repeat if symptoms persist in a week, and try some Vistaril to help avoid itching and scratchi ng. Problem Code: R21; Problem Code Type: ICD-10; Not Available [facility] 4 05:34:35 Notes:*Problem Name: C diffi cile colitis *Problem Status: inactive *Comments: *Problem Code: A04.7 *Problem Code Type: ICD-10 *Note Date: 05/15/2016 *Problem Name: Iud, Dec 2008 *ICD-10 Codes: *Problem Status: inactive *Comments: *Note Date: 11/27/2009 Problem Notes None recorded. Procedures Surgical History Date Name Laterality Status Provider Name and Address Organization Details Recorded Time 1 Date of Last Pap Smear completed ELIZABETH HOLCOMB LPN [facility] 01/30/2023 10:54:42 9 Most Recent Mammogram completed ELIZABETH HOLCOMB LPN [facility] 01/30/2023 10:55:47 9 Date of Last Mammogram completed ELIZABETH HOLCOMB LPN [facility] 01/30/2023 10:56:56 7 Date of Last Colonoscopy completed ELIZABETH HOLCOMB LPN [facility] 01/30/2023 10:56:05 Imaging Results None recorded. Procedure Notes None recorded. Medical Equipment None Reported. Medications Name Sig Start Date Stop Date Status Note LastModified by Organization Details LastModified Time losartan 50 mg tablet Take 1 tab by mouth daily 2015 active Not Available Not Available Not Avai lable Vancocin 125 mg capsule PO QID 06/05 completed Not Available Not Available Not Available amoxicilli n 500 mg capsule Take 1 by mouth three times daily for 10 days 03/02 completed Not Available Not Available Not Available potassium chloride ER 10 mEq capsule,ex tended release Take 1 cap by mouth daily 09/24 completed Not Available Not Available Not Available labetalol 200 mg tablet Take 1 tablet by mouth twice a day 2020 active Not Available Not Available Not Avai lable erythromyc in 500 mg tablet 1TAB twice daily 02/15 completed Not Available Not Available Not Available metoprolol tartrate 100 mg tablet Take 1 by mouth twice daily 04/05 completed Not Available Not Available Not Available fluconazol e 150 mg tablet Take 1 tablet by mouth single dose May repeat in one week needed 11/07 completed Not Available Not Available Not Available metoprolol succinate ER 50 mg tablet,ext ended release 24 hr Take 1 tablet by mouth once a day 10/20 completed Not Available Not Available Not Available Retin-A 0.1 % topical cream Apply daily to face at bedtime 08/31 completed Not Available Not Available Not Available lisinopril 20 mg tablet Take 1 by mouth daily 04/05 completed Not Available Not Available Not Available metronidaz ole 500 mg tablet Take 1 tab by mouth three times daily 05/02 completed Not Available Not Available Not Available chlorthali done 25 mg tablet Take 1 by mouth daily 06/26 completed Not Available Not Available Not Available amlodipine 5 mg tablet Take 1 tablet by mouth once a day 07/02 completed Not Available Not Available Not Available chlorthali done 50 mg tablet Take 1 tab by mouth daily 2017 active Not Available Not Available Not Avai lable Wellbutrin SR 100 mg tablet, 12 hr sustained- release 1 TAB BID 11/27 completed Not Available Not Available Not Available triamcinol one acetonide 0.1 % topical cream Apply to affected area twice daily Take as needed. 01/16 completed Not Available Not Available Not Available spironolac tone 25 mg tablet Take 1 tab by mouth daily 03/24 completed Not Available Not Available Not Available famotidine 20 mg tablet TAKE ONE TABLET BY MOUTH EVERY DAY active Not Available Not Available No t Available nifedipine 10 mg capsule Take 1 capsule by mouth twice a day 06/04 completed Not Available Not Available Not Available amlodipine 10 mg tablet TAKE ONE TABLET BY MOUTH EVERY DAY active Not Available Not Available No t Available Bactroban 2 % topical ointment apply three times a day to affected areas on face 05/04 completed Not Available Not Available Not Available ferrous sulfate 325 mg (65 mg iron) tablet Take 1 tablet by mouth twice daily. 01/23 completed Not Available Not Available Not Available Cipro 500 mg tablet 1 po bid 05/22 completed Not Available Not Available Not Available triamcinol one acetonide 0.1 % topical ointment APPLY A SMALL AMOUNT TO THE AFFECTED AREA TWICE DAILY active Not Available Not Available No t Available Keflex 500 mg tablet 1 three times daily 01/16 completed Not Available Not Available Not Available candesarta n 16 mg tablet Take 1 tablet by mouth once a day 06/22 completed Not Available Not Available Not Available minocyclin e 50 mg capsule take one tablet po BID for three days when acne flares. 05/15 completed Not Available Not Available Not Available metoprolol tartrate 50 mg tablet Take 1 tab by mouth twice daily 2015 active Not Available Not Available Not Avai lable Bentyl 10 mg capsule PO Q8hrs PRN 01/23 completed Not Available Not Available Not Available hydroxyzin e HCl 25 mg tablet Take 1 tab by mouth at bedtime as needed for itch 03/13 completed Not Available Not Available Not Available lisinopril 5 mg tablet 1TAB daily 01/28 completed Not Available Not Available Not Available hydrochlor othiazide 25 mg tablet 1TAB daily 06/25 completed Not Available Not Available Not Available ergocalcif bailey (vitamin D2) 1,250 mcg (50,000 unit) capsule 1cap .twice weekly 03/04 completed Not Available Not Available Not Available irbesartan 150 mg tablet 06/22 completed Not Available Not Available Not Available labetalol 300 mg tablet Take 1 tablet by mouth twice a day 06/04 completed Not Available Not Available Not Available hydroxyzin e HCl 10 mg tablet TAKE ONE TABLET BY MOUTH TWICE A DAY NEEDED FOR ITCHING; MAY CAUSE DROWSINE SS active Not Available Not Available No t Available losartan 100 mg tablet Take 1 tablet by mouth once a day 06/20 completed Not Available Not Available Not Available clotrimazo le 1 % topical cream Apply to skin twice a day as directed 06/04 completed Not Available Not Available Not Available irbesartan 300 mg tablet TAKE ONE TABLET BY MOUTH EVERY DAY active Not Available Not Available No t Available loratadine 10 mg tablet Take 1 by mouth daily 05/04 completed Not Available Not Available Not Available tetracycli ne 500 mg tablet 1 CAP BID 11/12 completed Not Available Not Available Not Available spironolac tone 50 mg tablet TAKE 1 TABLET BY MOUTH DAILY 10/20 completed Not Available Not Available Not Available Tetracycli ne 250 mg tablet 1 CAP twice daily 10/23 completed Not Available Not Available Not Available Vitamin D3 25 mcg (1,000 unit) tablet 2 tabs daily 07/10 completed Not Available Not Available Not Available minocyclin e 50 mg tablet 1CAP twice daily 09/20 completed Not Available Not Available Not Available cholestyra mine (with sugar) 4 gram powder for susp in a packet take BID 07/10 completed Not Available Not Available Not Available Vitamin D 1CAP twice daily 2011 active Not Available Not Available Not Avai lable Apriso 0.375 gram capsule,ex tended release TAKE FOUR CAPSULES BY MOUTH IN THE MORNING active Not Available Not Available No t Available Dificid 200 mg tablet Take 1 tablet by mouth twice daily. FOR CDIF NOT RESPONSI VE TO VANCOMYC IN 06/19 completed Not Available Not Available Not Available Uceris 9 mg tablet, extended release 1 capsule in the morning po once a day for 30 days. Please prescrib e generic brand GABE DE 01/23 completed called in 7 Not Available Not Available Not Available Alevazol 1 % topical ointment Apply a thin layer to rash twice a day for up to 4 weeks 09/16 completed Not Available Not Available Not Available riboflavin (vitamin B2) 400 mg tablet Take 1 tablet by mouth once a day OTC 2021 active Not Available Not Available Not Avai lable Vitals None Recorded Social History Question Answer Notes LastModified by Organizat ion Details LastModified Time Tobacco Smoking Status Never Smoker ELIZABETH HOLCOMB LPN null, [place] - [facility]. 01/30/2023 10:54:00 Would You Say That, In General, Your Health Is Very Good Information not available 01/31/2023 Women Aged 18-50 - Would You Like To Become In The Next Year? (Female Patients Only) No Information not available 01/31/2023 How Often Does Anyone, Including Family, Physically Hurt You? Never Information not available 01/31/2023 How Often Does Anyone, Including Family, Insult Or Talk Down To You? Never Information no t available 01/31/2023 How Often Does Anyone, Including Family, Threaten You With Harm? Never Information not available 01/31/2023 How Often Does Anyone, Including Family, Scream Or Curse At You? Never Information not available 01/31/2023 Within The Past 12 Months, You Worried That Your Food Would Run Out Before You Got Money To Buy More. Never True Information n ot available 01/31/2023 Within The Past 12 Months, The Food You Bought Just Didn't Last And You Didn't Have Money To Get More. Never True Information not available 01/31/2023 How Hard Is It For You To Pay For The Very Basics Like Food, Housing, Medical Care, And Heating? Would You Say It Is: Not Hard At All Information not available 01/31/2023 In The Past 12 Months, Has Lack Of Reliable Transportation Kept You From Medical Appointments, Meetings, Work Or From Getting Things Needed For Daily Living? No Information not available 01/31/2023 What Is Your Housing Situation Today? I Have Housing. Information not available 01/31/2023 How Often In The Past Year Have You Used Marijuana (including Smoking, Vaping, Dabbing, Or Edibles)? Never Information not available 01/31/2023 How Often In The Past Year Have You Used Prescription Medications That Were Not Prescribed To You? Never Information not available 01/31/2023 How Often In The Past Year Have You Taken Your Own Prescription Medication More Than The Way It Was Prescribed Or For Different Reasons Than Its Intended Purpose? Never Information not available 01/31/2023 How Often In The Past Year Have You Used Other Drugs (for Example, Heroin, Cocaine, Meth, Salvia, Inhalants)? Never Information not available 01/31/2023 Have You Ever Used IV Drugs? No Information not available 01/31/2023 What Was The Date Of Your Most Recent Tobacco Screening? 01/31/2023 Information n ot available 01/30/2023 Do You Or Have You Ever Used Any Other Forms Of Tobacco Or Nicotine? No Information not available 01/30/2023 Sex: Female Functional Status None recorded. Mental Status None recorded. Family History Relationship Description Onset Age of this Age Resolved Age Notes LastModified by Organization Details LastModified Time Mother Family history of Arthritis [email or web address] Not available 2022 03:50:12 Mother Family history of Hypertension [email or web address] Not available 11/2022 03:50:14 Mother Family history of hyperthyroid ism [email or web address] Not available 2022 03:50:17 Father Family history of Hypertension [email or web address] Not available 11/2022 03:50:13 Notes:*Problem: Father: Narda diaz disease.(PST) HTN, DM Mother- Hypothyroidism: Rheumatoid arthritis. Cataracts - Hyperlipidemia: HTN, osteoarthritis, DM both parents both grandmothers with DM maternal GM: colon cancer in 60s, CVA paternal aunt: breast CA Medical History No medical history recorded. Gynecological History Statement/Question Response Abnormal Pap N Date of Last Pap Smear 11/20/2020 Date of Last Colonoscopy 11/28/2016 Date of Last Mammogram 06/30/2018 Most Recent Mammogram 07/12/2018 Obstetrics History GPAL:G 0 P 0 0 0 0 Immunizations Vaccine Type Date Status Provider Name and Address Organization Details Recorded Time Td (adult), 2 Lf tetanus toxoid, preservative free, adsorbed 07/24/2017 completed Not Available [facility] 01/03/2023 05:46:29 Tdap 03/23/2021 completed Not Available [facility] 05:46:29 Tdap 02/15/2008 completed Not Available [facility] 05:46:29 Td(adult) unspecified formulation 08/10/2003 completed Not Available [facility] 01/03/2023 05:46:29 Influenza, split virus, trivalent, preservative 01/16/2015 completed Not Available [facility] 01/03/2023 05:46:29 Influenza, split virus, quadrivalent, PF 01/28/2022 completed Not Available [facility] 01/03/2023 05:46:29 Influenza, split virus, quadrivalent, preservative 01/23/2017 completed Not Available [facility] 01/03/2023 05:46:29 COVID-19, mRNA, LNP-S, PF, 100 mcg/0.5mL dose or 50 mcg/0.25mL dose 07/02/2021 completed Not Available [facility] 01/04/20 05:46:29 SARS-COV-2 (COVID-19) vaccine, UNSPECIFIED 06/18/2020 completed Not Available [facility] 01/03/2023 05:46:29 SARS-COV-2 (COVID-19) vaccine, UNSPECIFIED 07/16/2020 completed Not Available [facility] 01/03/2023 05:46:30 COVID-19, mRNA, LNP-S, bivalent, PF, 30 mcg/0.3 mL dose 04/12/2022 completed Not Available [facility] 01/03/2023 05:46:30 influenza, unspecified formulation 12/19/2020 completed Not Available [facility] 01/03/2023 05:46:30 influenza, unspecified formulation 01/29/2012 completed Not Available [facility] 01/03/2023 05:46:30 Influenza, split virus, quadrivalent, PF 01/31/2023 completed CIELO NICHOLS MD [address], [place], [address], [facility] 01/31/2023 16:54:28 COVID-19, mRNA, LNP-S, PF, jaya-sucrose, 30 mcg/0.3 mL 02/07/2023 completed Sheyla Mina RN [facility] 02/07/2023 09:09:44 Past Encounters Encounter ID Performer Location Encounter Start Date Encounter Closed Date Diagnosis/Indication Diagnosis SNOMED-CT Code Diagnosis ICD10 Code [id number] Sheyla Mina RN [facility] [address] [place] [address] 01/26/2024 08:05:25 01/26/2024 09:26:39 History of anemia - iron deficient 592158093 Z86.2 Essential hypertension 80197187 I10 Health Concerns Section Related Observation LastModified by Organization Detai ls LastModified Time None Recorded Concern Status LastModified by Organization Details LastModified Time None Recorded Payers Encounter Date Sequence Insurance Name Policy Number Policy Brandon Covered Member ID Brandon Member ID Guarantor Name 01/26/2024 1 [employer] ([employer]ICA[employer]) Nilda Parish [id number] Nilda Parish OBGyn Episode No OBEpisode recorded.
--- OUTSIDE RECORDS SUMMARY | 2024-01-26 11:47 | XMS_ITS | Data Portability ---
Author Organization [facility], [facility] Address [address] [place] [address] Assessment Encounter Date Assessment Date Assessment LastModified by Organization Details LastModified Time 01/31/2023 01/31/2023 Ear pain, normal exam, continue to use allergy meds which seems to help. Check labs prior to next year BP well controlled with current medications medications renewed without any changes. Not available 01/31/2023 16:55:27 Plan of Treatment Reminders Order Date Submit Date Provider Last Modified By Organization Details Last Modified Time Details Appointments Nurse Visit 20 2023 08:10A M [facility] Nursing Staff Not available Not available Not available Annual Wellness Exam 30 2023 09:20A M Cielo Nichols Not available Not available Not available Lab HbA1c (hemoglo bin A1c), blood - Right AC. 1 mint and 1 lav 2022 023 [facility] (Registration ), [address] [place] [address] [place], [address], 01/31/2023 08:07:42 BMP, serum or plasma - Right AC. 1 mint and 1 lav 2022 023 [facility] (Registration ), [address] [place] [address] [place], [address], 01/31/2023 08:07:42 ferritin , serum or plasma 2022 024 [facility] (Registration ), [address] [place] [address] [place], [address], 01/26/2024 08:15:08 CBC 2022 024 [facility] [address] [place] [address] [place], [address], 01/26/2024 08:15:22 BMP, serum or plasma 2022 024 [facility] [address] [place] [address] [place], [address], 01/26/2024 08:17:07 ferritin , serum or plasma 2022 024 [facility] [address] [place] [address] [place], [address], 01/26/2024 08:15:08 CBC 2022 024 [facility] [address] [place] [address] [place], [address], 01/26/2024 08:15:22 BMP, serum or plasma 2022 024 [facility] (Registration ), [address] [place] [address] [place], [address], 01/26/2024 08:17:07 Referral None recorded . Procedures None recorded . Surgeries None recorded . Imaging None recorded . Medication Orders famotidi ne 20 mg tablet 2022 023 [facility], [address] [place], [address], 01/31/2023 16:12:53 amlodipi ne 10 mg tablet 2022 023 [facility], [address] [place], [address], 01/31/2023 16:12:53 irbesart an 300 mg tablet 2022 023 [facility], [address] [place], [address], 01/31/2023 16:12:53 Patient TargetsNo targets recorded. Patient Instructions Encounter Date Encounter Id Patient Instructions Last Modified By Organization Details Last Modified Time 01/31/2023 [id number] learning about healthy weight Not available 01/31/2023 13:25:51 stay at [facility] weight Not available 01/31/2023 13:25:51 Reason for Referral None Reported. Results Created Date Observation Date Name Description Value Unit Range Abnormal Flag Note LastModifiedBy Organization Detail LastModifiedTime 01/25/2001/24/2023 BASIC METAB OLIC PANEL calcium 8.4 mg/dL 8.5-10 .1 low Not Available [address] [place], [address] 01/24/2023 15:26:50 01/25/20 23 01/24/2023 BASIC METAB OLIC PANEL glucose 99 mg/dL 74-106 normal Not Available [facility] [address] [place], [address] 01/24/2023 15:26:50 01/25/20 23 01/24/2023 BASIC METAB OLIC PANEL BUN 13 mg/dL 7-18 normal Not Available [facility] [address] [place], [address] 01/24/2023 15:26:50 01/25/20 23 01/24/2023 BASIC METAB OLIC PANEL creatinine 0.8 mg/dL 0.55-1 .02 normal Not Available [address] [place], [address] 01/24/2023 15:26:50 01/25/20 23 01/24/2023 BASIC METAB OLIC PANEL estimated GFR 90.83 mL/min /1.73m 2 The eGFR is calcu lated from a serum creat inine using the CKD-E PI 2020 equat ion. Other varia bles requi red for the equat ion are gende r and age; this equat ion does not inclu de a race coeff icien t. This equat ion has simil ar overa ll perfo rmanc e to previ ous equat ions excep t value s may diffe r, in parti cular , in patie nts with highe r value s of eGFR and young er-ag ed adult s. Not Available [address] [place], [address] 01/24/2023 15:26:50 01/25/20 23 01/24/2023 BASIC METAB OLIC PANEL sodium 139 mmol/ L 136-14 5 normal Not Available [address] [place], [address] 01/24/2023 15:26:50 01/25/20 23 01/24/2023 BASIC METAB OLIC PANEL potassium 4.0 mmol/ L 3.5-5. 1 normal Not Available [address] [place], [address] 01/24/2023 15:26:50 01/25/20 23 01/24/2023 BASIC METAB OLIC PANEL chloride 105 mmol/ L 98-107 normal Not Available [address] [place], [address] 01/24/2023 15:26:50 01/25/20 23 01/24/2023 BASIC METAB OLIC PANEL CO2 25.0 mmol/ L 21.0-3 2.0 normal Not Available [address] [place], [address] 01/24/2023 15:26:50 01/25/20 23 01/24/2023 BASIC METAB OLIC PANEL anion gap 9.0 mmol/ L 3-11 normal Not Available [address] [place], [address] 01/24/2023 15:26:50 01/25/20 23 01/24/2023 HEMOG LOBIN A1C hemoglobin A1C 5.1 % <5.7 Refer ence Range s <5.7 Elizabeth l 5.7-6 .4% Predi abete s 6.5% or great er Diagn ostic for diabe sidney (if confi rmed) Refer ences : 1. Ameri can Diabe sidney Assoc iatio n. Clas sific ation and Diagn osis of Diabe sidney. Diabe sidney Care 2019 Feb;4 2(Sup pleme nt 1):S1 3-s28 . Not Available [facility] [address] [facility] , [place], [address] 01/24/2023 17:27:09 01/25/20 23 01/24/2023 gluco se, QN [mass /volu me], blood glucose ser 99 mg/dL 74-[address] [facility] [address], [place], [address], 09/26/2023 05:04:50 01/25/20 23 01/24/2023 CMP, serum or plasm a aniongap 9.0 mmol/ L 3-11 normal Not Available Not Available 09/26/19 05:04:44 01/25/2001/24/2023 CMP, serum or plasm a BUN (blood urea nitrogen), serum or plasma 13 mg/dL 7-18 normal Not Available Not Available 03/2023 05:04:44 01/25/20 23 01/24/2023 CMP, serum or plasm a calcium, qn, serum or plasma 8.4 mg/dL 8.5-10 .1 low Not Available Not Available 09/26/2023 05:04:44 01/25/2001/24/2023 CMP, serum or plasm a chloride, serum or plasma 105 mmol/ L 98-107 normal Not Available Not Available 09/26/19 05:04:44 01/25/2001/24/2023 CMP, serum or plasm a CO2, (carbon dioxide), total, serum or plasma 25.0 mmol/ L 21.0-3 2.0 normal Not Available Not Available 09/26/2023 05:04:44 01/25/20 23 01/24/2023 CMP, serum or plasm a creatinine, serum or plasma 0.8 mg/dL 0.55-1 .02 normal Not Available Not Available 09/26/2023 05:04:44 01/25/20 23 01/24/2023 CMP, serum or plasm a eGFR 90.83 (?) mL/mi n/1.7 3m2 mL/min /1.73m 2 Not Available Not Available 09/26/2023 05:04:44 01/25/20 23 01/24/2023 CMP, serum or plasm a potassium, serum or plasma 4.0 mmol/ L 3.5-5. 1 normal Not Available Not Available 09/26/2023 05:04:44 01/25/20 23 01/24/2023 CMP, serum or plasm a sodium, serum or plasma 139 mmol/ L 136-14 5 normal Not Available Not Available 09/26/2023 05:04:44 11/10/19 24 05/18/2021 imagi ng/di agnos tic resul t No observ ation record ed. [email or web address] Not Available 11/09 19:58:33 11/10/19 24 03/02/2021 imagi ng/di agnos tic resul t No observ ation record ed. [email or web address] Not Available 11/09 19:58:49 11/10/19 24 10/28/2019 imagi ng/di agnos tic resul t No observ ation record ed. [email or web address] Not Available 11/09 20:00:04 11/10/19 24 10/11/2019 imagi ng/di agnos tic resul t No observ ation record ed. [email or web address] Not Available 11/09 20:00:50 11/10/19 24 05/29/2021 imagi ng/di agnos tic resul t No observ ation record ed. [email or web address] Not Available 11/09 20:00:53 11/10/19 24 04/16/2021 imagi ng/di agnos tic resul t No observ ation record ed. [email or web address] Not Available 11/09 20:01:18 11/10/19 24 08/02/2022 MAMMO pramod No observ ation record ed. [email or web address] Not Available 11/09 20:01:19 11/10/19 24 06/30/2018 pramod URENA No observ ation record ed. [email or web address] Not Available 11/09 20:01:21 Result Notes None recorded. Problems Name Problem SNOMED Code Status Onset Date Resolution Date Notes Provider Name and Address Organization Details Recorded Time Prediabe sidney 775640592 Completed 200701/31/2023 01/29/20 22 - Comments only - Cielo Nichols MD - Most recent labs WNL, repeat next year, strong FH of diabetes , doing a good job eating well and walking. Problem Code: R73.03; Problem Code Type: ICD-10; Removal Reason: A1C always normal, fasting sugars normal last few years. MD [address], [place], [address] , [facility] 3 13:20:23 Obesity 302574024 Active 200709/25/19 19 - Comments only - Albino Frank - Lost 6 pounds since last visit. Eating healthy is a struggle because and 2 younger children do not like eating vegetabl es. Is walking more and avoiding soda. [facility] ed. Problem Code: E66.9; Problem Code Type: ICD-10; MD [address], [facility] [address] , [facility] 3 13:11:08 Eczema 49025210 Active 1999 Problem Code: L30.9; Problem Code Type: ICD-10; MD [address], [place], [address] , [facility] 3 13:11:08 [facility] hyperten ger 28996600 Active [address], [facility] [address] , [facility] 3 13:14:38 Acne 93718648 Active 2008 Problem Code: L70.9; Problem Code Type: ICD-10; MD [address], [facility] [address] , [facility] 3 13:12:20 Adult health examinat ion Active 2014 Problem Code: Z00.00; Problem Code Type: ICD-10; MD [address], [facility] [address] , [facility]. 3 13:12:30 Impetigo 27989257 Completed 201401/23/2015 01/17/20 15 - Comments only - Cielo Nichols MD - Start Bactroba n 3 times daily to yellow crusty areas on face Problem Code: L01.00; Problem Code Type: ICD-10; Not Available [facility] 3 04:53:23 Fever 023818938 Completed 201504/21/2015 Problem Code: R50.9; Problem Code Type: ICD-10; Not Available [facility] 3 04:53:23 Nausea 810418347 Completed 201504/21/2015 04/05/19 16 - Comments only [...] R11.0; Problem Code Type: ICD-10; Not Available [facility] 3 04:53:23 Noninfec tious gastroen teritis 93026875 Completed 201604/22/2016 04/08/19 17 - Comments only - Cielo Nichols MD - Check stool cultures . Hold on antibiot ics. Return to clinic or present to emergenc y room if she develops severe abdomina l pain, or fevers. Not Available [facility] 3 04:53:23 Ulcerati ve colitis 24555285 Active 2016 Dr. Dean Problem Code: K51.90; Problem Code Type: ICD-10; MD [address], [place], [address] , [facility]. 3 13:20:59 Screenin g for malignan t neoplasm of breast Active 2018 Problem Code: Z12.39; Problem Code Type: ICD-10; MD [address], [place], [address] , [facility] 3 13:20:36 Mitral valve regurgit ation 88814629 Active 2019 due for repeat ECHO 2024 Problem Code: I34.0; Problem Code Type: ICD-10; CIELO NICHOLS MD [address], [place], [address] , [facility] 3 13:19:11 Localize d eruption of skin 569396053 Completed 201912/16/2019 09/21/19 20 - Comments only - Piper Pate FURRIER APPRENTICE - No improvem ent with clotrima zole. [...] R21; Problem Code Type: ICD-10; Not Available [facility] 3 04:53:24 Pregnanc y 20922887 Completed 202011/03/2020 10/21/19 21 - Comments only - Cielo Nichols MD - By LMP she is 6 weeks 6 days. High risk given HTN, CKD, age and colitis. Referral s made to both [facility] and [facility] [employer]. OB ultrasou nd as soon as possible . Quantita tive HCG drawn today (recent TAB, would like baseline level in case she has any bleeding ) Problem Code: Z33.1; Problem Code Type: ICD-10; Not Available [facility] 3 04:53:25 Headache 92330277 Active 2021 Problem Code: R51.9; Problem Code Type: ICD-10; CIELO NICHOLS MD [address], [place], [address] , [facility] 3 13:16:16 Gastroes ophageal reflux disease without esophagi tis 323762640 Active 2021 Problem Code: K21.9; Problem Code Type: ICD-10; CIELO NICHOLS MD [address], [facility] [address] , [facility] 3 13:15:52 Hyperlip idemia screenin g Completed 202107/16/2021 Problem Code: Z13.220; Problem Code Type: ICD-10; Not Available [facility] 3 04:53:25 Impaired fasting glycemia 977835202 Completed 200711/20/2022 Not Available [facility] 3 04:53:25 Pain of right knee joint 26945653729 4100 Completed 201709/01/2019 Problem Code: M25.561; Problem Code Type: ICD-10; Not Available [facility] 3 04:53:25 Streptoc occal sore throat 17116407 Completed 201404/05/2015 Problem Code: J02.0; Problem Code Type: ICD-10; Not Available [facility] 3 04:53:26 Melena 1798713 Completed 201605/15/2016 Problem Code: K92.1; Problem Code Type: ICD-10; Not Available [facility] 3 04:53:26 Abdomina l pain 33011237 Completed 201605/15/2016 Problem Code: R10.9; Problem Code Type: ICD-10; Not Available [facility] 3 04:53:26 Intraute rine contrace ptive device in situ 243286064 Completed 200909/01/2019 Problem Code: Z97.5; Problem Code Type: ICD-10; Not Available [facility] 3 04:53:26 Acute stress disorder 44846550 Completed 201809/01/2019 Problem Code: F43.0; Problem Code Type: ICD-10; Not Available [facility] 3 04:53:26 Bleeding from nose 510246816 Completed 202101/28/2022 Problem Code: R04.0; Problem Code Type: ICD-10; Not Available [facility] 3 04:53:26 Heart murmur 86515429 Completed 201911/20/2022 Problem Code: R01.1; Problem Code Type: ICD-10; Not Available [facility] 3 04:53:27 Miscarri age without complica tion 19728491 Completed 201903/13/2020 Problem Code: O03.9; Problem Code Type: ICD-10; Not Available [facility] 3 04:53:27 Hyperten sive disorder 75363423 Completed 200811/20/2022 Not Available [facility] 3 04:53:27 Disorder of kidney and/or ureter 608801292 Completed 201408/03/2015 Problem Code: N28.9; Problem Code Type: ICD-10; Not Available [facility] 3 04:53:28 Pleuriti c pain 5152985 Completed 201903/13/2020 Problem Code: R07.81; Problem Code Type: ICD-10; Not Available [facility] 3 04:53:28 History of nutritio nal disorder 174868813 Completed 200711/20/2022 03/24/19 20 - Comments only - Cielo Nichols MD - She has had a couple of blood sugars over 100, unclear if those were fasting. With next set of labs will get fasting labs includin g glucose and hemoglob in A1c to clarify whether she meets criteria of prediabe sidney. Not Available [facility] 3 04:53:28 Contact dermatit is 79526404 Completed 201810/20/2020 Problem Code: L25.9; Problem Code Type: ICD-10; Not Available [facility] 3 04:53:28 Iron deficien cy anemia 77852699 Completed 201601/23/2017 Problem Code: D50.9; Problem Code Type: ICD-10; Not Available [facility] 3 04:53:29 Hypokale andrew 49149201 Completed 201701/28/2022 Problem Code: E87.6; Problem Code Type: ICD-10; Not Available [facility] 3 04:53:29 History of anemia - iron deficien t 464331988 Active 2022 CIELO NICHOLS MD [address], [place], [address] [facility] 3 13:11:56 Localize d eruption of skin 016686721 Active 202211/07/19 23 - Comments only - [...] R21; Problem Code Type: ICD-10; Not Available [facility] 4 05:34:35 Notes:*Problem Name: C diffi cile [...] Last Pap Smear completed ELIZABETH HOLCOMB LPN [facility] 01/30/2023 10:54:42 9 Most Recent Mammogram completed ELIZABETH HOLCOMB LPN [facility] 01/30/2023 10:55:47 9 Date of Last Mammogram completed ELIZABETH HOLCOMB LPN [facility] 01/30/2023 10:56:56 7 Date of Last Colonoscopy completed ELIZABETH HOLCOMB [facility] 01/30/2023 10:56:05 Imaging Results Imaging Date Name Status LastModified by Organ [facility] Details LastModified Time 05/18/2021 imaging/diagno stic result completed Information not available 11/10/2023 19:58:33 03/02/2021 imaging/diagno stic result completed Information not available 11/10/2023 19:58:49 10/28/2019 imaging/diagno stic result completed Information not available 11/10/2023 20:00:04 10/11/2019 imaging/diagno stic result completed Information not available 11/10/2023 20:00:50 05/29/2021 imaging/diagno stic result completed Information not available 11/10/2023 20:00:53 04/16/2021 imaging/diagno stic result completed Information not available 11/10/2023 20:01:18 08/02/2022 MAMMO, screening completed Information not available 11/10/2023 20:01:19 06/30/2018 MAMMO, screening completed Information not available 11/10/2023 20:01:21 Procedure Notes None recorded. Medical Equipment None [...] Available Not Available Not Avai lable Vitals Date Recorded Body height Body mass index (BMI) Body weight Body temperature Heart rate Respiratory rate Systolic blood pressure Diastolic blood pressure Provider Name and Address Organization Details Last Updated DateTime 3 160.02 cm 32.4 kg/m2 83175.4 g 97.9 [degF] 86 /min 18 /min 118 mm[Hg] 80 mm[Hg] ELIZABETH HOLCOMB LPN [facility] 3 12:55:40 Social History Question Answer Notes LastModified by Organizat ion Details LastModified Time Tobacco Smoking Status Never Smoker ELIZABETH HOLCOMB LPN [facility], [facility] 01/30/2023 10:54:00 Would You Say That, In [...] [email or web address] Not available 11/2022 03:50:13 Notes:*Problem: Father: Park inson disease.(PST) HTN, DM Mother- Hypothyroidism: Rheumatoid arthritis. [...] preservative free, adsorbed 07/24/2017 completed Not Available [facility] 01/03/2023 05:46:29 Tdap 03/23/2021 completed Not Available [facility] 05:46:29 Tdap 02/15/2008 completed Not Available [facility] 05:46:29 Td(adult) unspecified formulation 08/10/2003 completed Not Available [facility] 01/03/2023 05:46:29 Influenza, split virus, trivalent, preservative 01/16/2015 completed Not Available [facility] 01/03/2023 05:46:29 Influenza, split virus, quadrivalent, PF 01/28/2022 completed Not Available [facility] 01/03/2023 05:46:29 Influenza, split virus, quadrivalent, preservative 01/23/2017 completed Not Available [facility] 01/03/2023 05:46:29 COVID-19, mRNA, LNP-S, PF, 100 mcg/0.5mL dose or 50 mcg/0.25mL dose 07/02/2021 completed Not Available [facility] 01/04/20 05:46:29 SARS-COV-2 (COVID-19) vaccine, UNSPECIFIED 06/18/2020 completed Not Available [facility] 01/03/2023 05:46:29 SARS-COV-2 (COVID-19) vaccine, UNSPECIFIED 07/16/2020 completed Not Available [facility] 01/03/2023 05:46:30 COVID-19, mRNA, LNP-S, bivalent, PF, 30 mcg/0.3 mL dose 04/12/2022 completed Not Available [facility] 01/03/2023 05:46:30 influenza, unspecified formulation 12/19/2020 completed Not Available [facility] 01/03/2023 05:46:30 influenza, unspecified formulation 01/29/2012 completed Not Available [facility] 01/03/2023 05:46:30 Influenza, split virus, quadrivalent, PF 01/31/2023 completed CIELO NICHOLS MD [address] [place] [address] Dr, [place], [address], [facility] 01/31/2023 16:54:28 COVID-19, mRNA, LNP-S, PF, jaya-sucrose, 30 mcg/0.3 mL 02/07/2023 completed Sheyla Mina RN [facility], [facility] 02/07/2023 09:09:44 Past Encounters Encounter ID Performer Location Encounter Start Date Encounter Closed Date Diagnosis/Indication Diagnosis SNOMED-CT Code Diagnosis ICD10 Code [id number] Sheyla Mina RN [facility] [address] [place] [address] 01/24/2023 09:00:30 01/24/2023 09:49:40 Essential hypertension 79858330 I10 Prediabetes 605311055 R7 3.03 [id number] CIELO NICHOLS MD [facility] [address] [place] [address] 01/31/2023 12:43:31 01/31/2023 13:34:42 Active or passive immunization 762660196 Z23 Adult [facility] th examination 883506185 Z00.00 Essential hypertension 14067556 I10 History of anemia - iron deficient 305583734 Z86.2 Gastroesop hageal reflux disease without esophagitis 448071738 K21.9 [id number] hSeyla Mina RN [facility] [address] [place] [address] 01/26/2024 08:05:25 01/26/2024 09:26:39 History of anemia - iron deficient 688109235 Z86.2 Essential hypertension 54440228 I10 [id number] Sheyla Mina RN [facility] [address] [place] [address] 02/07/2023 08:53:26 02/07/2023 09:10:50 Administration of SARS-CoV-2 vaccine 4540263827 Z23 Health Concerns Section Related Observation LastModified by Organization Detai ls LastModified Time None Recorded Concern Status LastModified by Organization Details LastModified Time None Recorded Advance Directives Directive None Recorded Payers Encounter Date Sequence Insurance Name Policy Number Policy Brandon Covered Member ID Brandon Member ID Guarantor Name 01/24/2023 1 [facility] (MEDICAID) Nilda Claros Jem [id number] Nilda Claros Jem 01/31/2023 1 [facility] (MEDICAID) Nilda Claros Jem [id number] Nilda Claros Jem 02/07/2023 1 [facility] (MEDICAID) Nilda Claros Jem [id number] Nilda Claros Jem 01/26/2024 1 [facility] (MEDICAID) Nilda Claros Jem [id number] Nilda Parish Notes Date Note Type Note Provider Name and Address Organization Details Recorded Time 01/31/2023 text/html Here for Annual Exam. Interval history form was reviewed, including comprehensive ROS form. Right ear has been bothering intermittently. Taking allergy medication does help. nose running a bit as well. HTN- got a new BP cuff, BP has been excellent at home, in the 1teens/ 70-80, just started walking on the treadmill again. ACNE- very quiet. CKD= eGFR has been normal last year or two GERD- well controlled with famotadine Headaches- better on vitamin B2 ULCERATIVE COLITIS- sees monica Bond next year, quiet on meds. CIELO NICHOLS MD [address], [place], [address], [facility] 01/31/2023 16:56:29 OBGyn Episode No OBEpisode recorded.
--- OUTSIDE RECORDS SUMMARY | 2024-01-26 11:48 | XMS_ITS | Encounter Summary ---
Author Organization [facility] Address [address] [place] [address] Care Team Providers Care It Risk Advisor Name Role Phone Unknown, Provider Primary Care Provider Tiffany garcia Encounter Details Date Type Department Care Team (Late st Contact Info) Description 11/21/2020 Lab Requisition [facility] Pathology & Laboratory Medicine - [facility] [address] [place] [address] [address] [place], [place] [id number] Encounter for other general examination Social History Tobacco Use Types Packs/Day Years Used Date Smoking Tobacco: Never Assessed Interpersonal Safety Answer Date Record ed Physically Hurt Never 09/26/2019 Verbally Threaten Not on file 09/26/2019 Comments Unknown Sex and Gender Information Value Date Recorded Sex Assigned at Not on file Legal Sex Female 18:13 EST Gender Identity Not on file Sexual Orientation Not on file documented as of this encounter Plan of Treatment Not on file documented as of this encounter Procedures Procedure Name Priority Date/Time Associated Diagnosis Comments PAP TEST Today 11/20/2020 15:10 EDT Encounter for other general examination HPV DNA DETECTION WITH GENOTYPING, PCR Today 11/20/2020 15:10 EDT Encounter for other general examination documented in this encounter Results * HUMAN PAPILLOMAVIRUS (HPV) DETECTION-HIGH RISK TYPES (11/20/2020 15:10 EDT) HPV other High Risk types, PCR Negative Negative 12/01/2020 15:26 EDT [facility] Comment:No E6 or E7 mRNA is detected from HPV types 16,18,31,33,35,39,45,51,52,56,58,59,66, and 68 by motorcycle builder mediated amplification. Papanicolaou smear specimen (specimen) CERVIX UTERI STRUCTURE / Unknown 11/20/2020 15:10 EDT 11/30/2020 15:38 EDT Leigha Roberson CN MICROBIOLOGY - GENERAL ORDERABLES Final Result [facility] [address] [place] [address] * PAP TEST (11/20/2020 15:10 EDT) Specimens A. Cervix and/or Endocervix , ThinPrep Imaging System with Manual Evaluation 12/01/2020 15:26 [facility] Specimen Adequacy Satisfactory for Evaluation - transformation zone component present 12/01/2020 15:26 [facility] General Categorization Negative for intraepithelial lesion or malignancy 12/01/2020 15:26 [facility] Attestation . 12/01/2020 15:26 [facility] at 1526 Clinical History See below 12/02/19 15:26 [facility] HPV The result for the Human Papillomavirus (HPV) Detection-High Risk Types is Negative. No E6 or E7 mRNA is detected from HPV types 16,18,31,33,35,39 ,45,51,52,56,58,5 9,66, and 68 by motorcycle builder mediated amplification.Brittanie ting was performed on specimen [id number] and was resulted on 12/01/2020 1515 EDT by KARAN, LAB INSTRUMENT RESULTS IN 12/01/2020 15:26 T [facility] Performing Lab [facility] 12/01/2020 15:26 [facility] Scanned Images 12/01/2020 15:26 [facility] Papanicolaou smear specimen (specimen) CERVIX UTERI STRUCTURE / Unknown 11/20/2020 15:10 EDT 11/21/2020 13:44 EDT Leigha Roberson [facility] PATHOLOGY ORDERABLES F inal Result [facility] [address] [place] [address] documented in this encounter Visit Diagnoses Diagnosis Encounter for other general examination documented in this encounter Care Teams It Risk Advisor Relationship Specialty Start Date End Date Unknown, Provider, PCP - General 12/31/14 documented as of this encounter
--- OUTSIDE RECORDS SUMMARY | 2024-01-26 11:48 | XMS_ITS | Encounter Summary ---
Author Organization [facility] Address [address] [place] [address] Care Team Providers Care Director Of Market Intelligence Name Role Phone Unknown, Provider Primary Care Provider Tiffany garcia Encounter Details Date Type Department Care Team (Late st Contact Info) Description 11/28/2016 Results Only [facility] [phone] Concepcion Dee MD [address] [place] [address], [place] [phone] Social History Tobacco Use Types Packs/Day Years Used Date Smoking Tobacco: Never Assessed Comments Unknown Sex and Gender Information Value Date Recorded Sex Assigned at Not on file Legal Sex Female 18:13 EST Gender Identity Not on file Sexual Orientation Not on file documented as of this encounter Plan of Treatment Not on file documented as of this encounter Procedures Procedure Name Priority Date/Time Associated Diagnosis Comments SURGICAL PATHOLOGY Routine 11/28/2016 9:17 EDT documented in this encounter Results * SURGICAL PATHOLOGY (11/28/2016 9:17 EDT) Pathology Report: SURGICAL PATHOLOGY REPORT Reports generated via electronic interface contain original data; however they are lacking the format of the original report. Caution should be taken when reading/interpreting unformatted reports. Name: ? EDWAR DOMINGUEZ ? Accession #: ? [id number] ? : ? 1975 (Age: 41) ??F ? Collect Date: ? 11/28/2016 ? Location: ? [facility] ? Receive Date: ? 11/29/2016 ? Provider: CONCEPCION DEE MD Copy to: THADDEUS NICHOLS MD ? Final Pathologic Diagnosis: A. SMALL INTESTINE, ILEUM, BIOPSY: - Enteric mucosa with architectural disarray. - Negative for dysplasia. B. COLON, CECUM, BIOPSY: - Quiescent colitis. - Negative for dysplasia. C. COLON, TRANSVERSE, BIOPSY: - Quiescent colitis. - Negative for dysplasia D. COLON, SIGMOID, BIOPSY: - Quiescent colitis. - Negative for dysplasia. E. RECTUM, BIOPSY: - Quiescent proctitis. - Negative for dysplasia. Comment: Buckle Stringer sections of the case reviewed at the intradepartmental GI consensus conference. Document reviewed and electronically signed by: ANGELINA MANTILLA MD Report ??Date: 12/04/2016 13:33 By the signature above, the attending physician certifies that he/she has personally conducted a gross and/or microscopic examination of the described specimens and rendered or confirmed the above diagnosis. Specimen(s) Received: A. ??Ileum bx B. ??Cecal bx C. ??Transverse colon bx D. ??Sigmoid colon bx E. ??Rectal bx Clinical History: Ulcerative pancolitis; C. difficile, S/P recent renal transplant; clinical diagnosis code: K51.018 Gross Description: A. ?Received in formalin labelled with proper patient identification (initials R, B) and ileum bx are three gu-white tissues (0.7 x 0.1 x 0.1 cm, 0.3 x 0.2 x 0.1 cm, and 0.3 x 0.2 x 0.1 cm). Entirely submitted in A1. B. ?Received in formalin labelled with proper patient identification (initials R, B) and cecal bx are four gu-white tissues (0.3 x 0.1 x 0.1 cm to 0.2 x 0.1 x 0.1 cm). Entirely submitted in B1 and B2. C. ?Received in formalin labelled with proper patient identification (initials R, B) and transverse colon bx are two gu-white, focally brown tissues (0.3 x 0.2 x 0.2 cm and 0.3 x 0.2 x 0.1 cm). Entirely submitted in C1. D. ?Received in formalin labelled with proper patient identification (initials R, B) and sigmoid colon bx are four white speckled tissues (0.6 x 0.1 x 0.1 cm to 0.2 x 0.2 x 0.1 cm). Entirely submitted in D1 and D2. E. ?Received in formalin labelled with proper patient identification (initials R, B) and rectal bx are two white tissues (0.3 x 0.1 x 0.1 cm and 0.2 x 0.2 x 0.1 cm). Entirely submitted in E1. Miab Ali 11/29/2016 10:13 AM End of Report [facility] 11/28/2016 9:17 EDT 11/29/2016 9:17 EDT us Concepcion Dee MD PATHOLOGY ORDERABLES Final Res ult [facility] [address] [place] [address] documented in this encounter Visit Diagnoses Not on filedocumented in this encounter Care Teams Director Of Market Intelligence Relationship Specialty Start Date End Date Unknown, Provider, PCP - General 12/31/14 documented as of this encounter
--- OUTSIDE RECORDS SUMMARY | 2024-01-26 11:48 | XMS_ITS | Encounter Summary ---
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 [address] [place] [address] Referral ID Status Reason Start Date Expiration Date Visits Re quested Visits Authorized [id number] Closed 11/16/2020 11/16/2021 1 1 Encounter Details Date Type Department Care Team (Latest Contact Info) Description 11/27/2020 10:35 AM EDT Laboratory Appointment Lab [address] [place] [address] Supervision of high risk in first trimester; Multigravida of advanced maternal age in first trimester Social History Tobacco Use Types Packs/Day Years Used Date Smoking Tobacco: Never Smokeless Tobacco: Never Alcohol Use Standard Drinks/Week Comments Not Currently 0 (1 standard drink = 0.6 oz pur e alcohol) Comments Yes Sex and Gender Information Value Date Recorded Sex Assigned at Female 05/03/2021 8:13 PM EST Gender Identity Female 05/03/2021 8:13 PM EST Sexual Orientation Not on file documented as of this encounter Plan of Treatment Not on file documented as of this encounter Procedures Procedure Name Priority Date/Time Associated Diagnosis Comments HC CREATININE - NON BLOOD Routine 11/27/2020 11:11 AM EDT Supervision of high risk in first trimester Multigravida of advanced maternal age in first trimester TYPE AND SCREEN VALIDITY Routine 021 11:01 AM EDT PANORAMA SCREEN Routine 11/27/2020 11:01 AM EDT Supervision of high risk in first trimester Multigravida of advanced maternal age in first trimester SPINAL MUSCULAR ATROPHY Routine 11/28/19 11:01 AM EDT Supervision of high risk in first trimester Multigravida of advanced maternal age in first trimester CF CARRIER Routine 11/27/2020 11:01 AM EDT Supervision of high risk in first trimester Multigravida of advanced maternal age in first trimester HEMOGRAM Routine 11/27/2020 11:01 AM EDT Supervision of high risk in first trimester Multigravida of advanced maternal age in first trimester HC SYPHILIS ANTIBODY Routine 11/27/2020 11:01 AM EDT Supervision of high risk in first trimester Multigravida of advanced maternal age in first trimester DIFFERENTIAL, AUTOMATED Routine 11/28/19 11:01 AM EDT Supervision of high risk in first trimester Multigravida of advanced maternal age in first trimester HC CREATININE Routine 11/27/2020 11:01 AM EDT Supervision of high risk in first trimester Multigravida of advanced maternal age in first trimester HC HEPATITIS C ANTIBODY Routine 11/28/19 11:01 AM EDT Supervision of high risk in first trimester Multigravida of advanced maternal age in first trimester SYPHILIS ANTIBODY SCREEN WITH REFLEX Routine 11/27/2020 11:01 AM EDT Supervision of high risk in first trimester Multigravida of advanced maternal age in first trimester ABO/RH TYPING Routine 11/27/2020 11:01 AM EDT Supervision of high risk in first trimester Multigravida of advanced maternal age in first trimester RUBELLA ANTIBODY, IGG Routine 11/27/2020 11:01 AM EDT Supervision of high risk in first trimester Multigravida of advanced maternal age in first trimester HIV SCREEN, 4TH GENERATION ([facility]/CGP/APD/NLH) Routine 11/27/2020 11:01 AM EDT Supervision of high risk in first trimester Multigravida of advanced maternal age in first trimester HEPATITIS B SURFACE ANTIGEN Routine 11/27/2020 11:01 AM EDT Supervision of high risk in first trimester Multigravida of advanced maternal age in first trimester ANTIBODY SCREEN Routine 11/27/2020 11:01 AM EDT Supervision of high risk in first trimester Multigravida of advanced maternal age in first trimester HC VARICELLA ZOSTER ANTIBODY Routine 11/27/2020 11:01 AM EDT Supervision of high risk in first trimester Multigravida of advanced maternal age in first trimester HC ASPARTATE AMINOTRANSFERASE (AST) Routine 11/27/2020 11:01 AM EDT Supervision of high risk in first trimester Multigravida of advanced maternal age in first trimester documented in this encounter Results * Protein/Creatinine Ratio, urine (11/27/2020 11:11 AM EDT) Creatinine, Urine 32 mg/dL [facility] Protein, Urine <6 0 - 12 mg/dL [facility] Protein / Creatinine Ratio, Urine <0.2 ratio [facility] Urine 11/27/2020 11:1 1 AM EDT 11/27/2020 11:24 AM EDT Narrative Resulting Agency Comment Spec In Lab Darline Martinez MD URINE ORDERABLES Performing Organization Address [facility]/ZIP Co de Phone Number [facility] [place] [address] * Type and Screen Validity (11/27/2020 11:01 AM EDT) T&S only valid at [facility] LABORATORY Comment:This Type and Screen result is only valid at the [facility] Hospital Blood 11/27/2020 11:0 1 AM EDT 11/27/2020 11:07 AM EDT Narrative Resulting Agency Comment Spec In Lab Darline Martinez MD BLOOD BANK LAB ORD ERABLES Performing Organization Address [facility] Co de Phone Number [facility] [place] [address] * HIV Screen, 4th Generation ([facility]/CGP/APD/NLH) (11/27/2020 11:01 AM EDT) Pathologist [facility] HIV Ab/Ag Screen Negative Negative [facility] Comment: This 4th Generation HIV test [...] HIV Comment Low Risk of HIV Infection [facility] Blood 11/27/2020 11:0 1 AM EDT 11/27/2020 11:22 AM EDT Narrative Resulting Agency Comment Spec In Lab Darline Martinez MD CHEMISTRY ORDERABL ES Performing Organization Address [facility] Co de Phone Number [facility] [place] [address] * Syphilis Screening Antibody with reflex RPR (11/27/2020 11:01 AM EDT) Syphilis IgG/IgM Negative Negative [facility] Blood 11/27/2020 11:0 1 AM EDT 11/27/2020 11:22 AM EDT Narrative Resulting Agency Comment Spec In Lab Darline Martinez MD CHEMISTRY ORDERABL ES [facility] [place] [address] * (ABNORMAL) Differential, Automated (11/27/2020 11:01 AM EDT) Pathologist [facility] Neutrophil % 71.7 % [facility] Neutrophil Absolute 7.10(H) 1.70 - 6.10 x10(3)/mc L [facility] Lymph % 18.8 % [facility] Lymphocytes Abs 1.9 0.9 - 3.2 x10(3)/mc L [facility] Monocyte % 6.6 % [facility] Monocyte Abs 0.6 0.3 - 0.9 x10(3)/mc L [facility] Eos % 1.4 % [facility] Eosinophils Abs 0.1 0.0 - 0.4 x10(3)/mc L [facility] Basophil % 0.3 % [facility] Baso Absolute 0.0 0.0 - 0.1 x10(3)/mc L [facility] Immature Gran % 1.20 % [facility] Comment: Immature granulocytes(IG's)percentage and absolute count will include metamyelocytes, myelocytes, and promyelocytes. Blood smears from CBCs yielding IG's will be scanned manually for concordance. If this scan disagrees with the automated IG or if promyelocytes are noted, a manual differential will be performed. Immature Gran Absolute 0.12(H) 0.00 - 0.04 x10(3)/mc L [facility] Blood 11/27/2020 11:0 1 AM EDT 11/27/2020 11:22 AM EDT Narrative Resulting Agency Comment Spec In Lab Darline Martinez MD HEMATOLOGY ORDERAB LES Performing Organization Address [facility]/ZIP Co de Phone Number [facility] [place] [address] * (ABNORMAL) Hemogram (11/27/2020 11:01 AM EDT) White Blood Cell 9.9(H) 4.0 - 9.5 x10(3)/mc L [facility] Red Blood Cell 3.77(L) 4.00 - 5.21 x10(6)/mc L [facility] Hemoglobin 11.8 11.7 - 15.5 g/dL [facility] Hematocrit 34.4(L) 35.7 - 45.8 % [facility] Mean Cell Volume 91.2 82.6 - 94.4 fL [facility] Mean Cell Hemoglobin 31.3 27.1 - 32.0 pg [facility] Mean Cell Hemoglobin Concentration 34.3 31.7 - 35.0 g/dL [facility] Platelet 243 145 - 357 x10(3)/mc L [facility] RDW Standard Deviation 42.2 37.0 - 46.0 fL [facility] RDW coefficient of variation 12.8 11.5 - 14.1 % [facility] Mean Platelet Volume 9.2 7.6 - 12.9 fL [facility] NRBC% auto 0.0 % [facility] NRBC Absolute 0.000 0.000 - 0.000 x10(3)/mc L [facility] Blood 11/27/2020 11:0 1 AM EDT 11/27/2020 11:22 AM EDT Narrative Resulting Agency Comment Spec In Lab Darline Martinez MD HEMATOLOGY ORDERAB LES [facility] [place] [address] * Rubella Antibody, IgG (11/27/2020 11:01 AM EDT) Rubella Antibody IgG Positive Positive [facility] Comment: Please note: ??A positive result for this assay indicates that antibody levels are >or= 10.0 IU/mL and is considered to be an indicator of positive immune status. Blood 11/27/2020 11:0 1 AM EDT 11/27/2020 11:22 AM EDT Narrative Resulting Agency Comment Spec In Lab Darline Martinez MD CHEMISTRY ORDERABL ES Performing Organization Address [facility] Co de Phone Number [facility] [place] [address] * Hepatitis B Surface Antigen (11/27/2020 11:01 AM EDT) Hepatitis B Surface Antigen Negative Negative [facility] Blood 11/27/2020 11:0 1 AM EDT 11/27/2020 11:22 AM EDT Narrative Resulting Agency Comment Spec In Lab Darline Martinez MD CHEMISTRY ORDERABL ES Performing Organization Address [facility] Co de Phone Number [facility] [place] [address] * Antibody screen (11/27/2020 11:01 AM EDT) Ab Screen Interp Negative [facility] Expires at [id number] on: 11/30/2020 [facility] Blood 11/27/2020 11:0 1 AM EDT 11/27/2020 11:07 AM EDT Narrative Resulting Agency Comment Spec In Lab Darline Martinez MD BLOOD BANK LAB ORD ERABLES Performing Organization Address [facility]/ZIP Co de Phone Number [facility] [place] [address] * ABO/Rh Typing (11/27/2020 11:01 AM EDT) ABORH Type O Pos [facility] Blood 11/27/2020 11:0 1 AM EDT 11/27/2020 11:07 AM EDT Narrative Resulting Agency Comment Spec In Lab Darline Martinez MD BLOOD BANK LAB ORD ERABLES Performing Organization Address [facility] Co de Phone Number [facility] [place] [address] * Varicella zoster Antibody, IgG (11/27/2020 11:01 AM EDT) Varicella Zoster Antibody IgG Pos [facility] Blood 11/27/2020 11:0 1 AM EDT 11/27/2020 1:57 PM EDT Narrative Resulting Agency Comment Spec In Lab Darline Martinez MD IMMUNOLOGY ORDERAB LES Performing Organization Address [facility] Co de Phone Number [facility] [place] [address] * Hepatitis C Antibody (11/27/2020 11:01 AM EDT) Hepatitis C Antibody Negative Negative [facility] Blood 11/27/2020 11:0 1 AM EDT 11/27/2020 11:22 AM EDT Narrative Resulting Agency Comment Spec In Lab Darline Martinez MD CHEMISTRY ORDERABL ES Performing Organization Address [facility] Co de Phone Number [facility] [place] [address] * Creatinine (11/27/2020 11:01 AM EDT) Creatinine 0.72 0.70 - 1.20 mg/dL [facility] Est Glomerular Filtration Rate 101 >=60 mL/min/1. 73 m?? [facility] Comment: This patient? s estimated glomerular filtration rate (eGFR) is between 101 mL/min/1.73 m2 (patients with less muscle mass) and 117 mL/min/1.73 m2 (patients with more muscle mass) [...] and symptoms in addition to eGFR. Blood 11/27/2020 11:0 1 AM EDT 11/27/2020 11:22 AM EDT Narrative Resulting Agency Comment Spec In Lab Darline Martinez MD CHEMISTRY ORDERABL ES Performing Organization Address [facility]/ZIP Co de Phone Number [facility] [place] [address] * Aspartate Aminotransferase (11/27/2020 11:01 AM EDT) Aspartate Aminotransferase 15 0 - 30 unit/L [facility] Blood 11/27/2020 11:0 1 AM EDT 11/27/2020 11:22 AM EDT Narrative Resulting Agency Comment Spec In Lab Darline Martinez MD CHEMISTRY ORDERABL ES Performing Organization Address [facility] Co de Phone Number [facility] [place] [address] * Panorama Screen (11/27/2020 11:01 AM EDT) Panorama Screen See Scan Report [facility] Comment:Test performed by Aylin zuñiga, [address] [place] [address], [address], [place] [address] Blood 11/27/2020 11:0 1 AM EDT 11/27/2020 12:16 PM EDT Narrative Resulting Agency Comment Spec In Lab Darline Martinez MD LAB SEND OUT ORDER MITRA [facility] [place] [address] * CF Carrier (11/27/2020 11:01 AM EDT) CF Carrier CFTR Gene Analysis: [employer] Cystic Fibrosis 139-Variant Assay INDICATION FOR STUDY: Carrier screening or diagnostic testing for Cystic Fibrosis (CF) FAMILY HISTORY: No family history of cystic fibrosis RESULTS: NEGATIVE. None of the CF-causing variants included in this assay are detected. INTERPRETATION: A negative test result significantly reduces, but does not eliminate, the risk of being a carrier or having a child with CF. This individual has tested negative for the variants included in this assay, including the 23 CF-causing variants recommended by the [employer]. This result does not rule out the presence of CF-causing variants not detected by this test. For the following [place] populations tested by this assay, the detection rates, carrier risk before testing, and carrier risk after obtaining a negative result, respectively, are estimated as follows: Race/Ethnicity: Detection rate; Carrier risk before testing; Carrier risk after a negative result Ashkenazi Mandaen: ??95.44%; ??23.8; ??501 White: ??94.2%; ??25; ??415 : ??82.1%; ??/58.2; ??321 Black: ??78.7%; ??/61.4; ??285 : ??71.5%; ??93.7; ??326 Carrier rates are based on the ACMG Technical Standards and Guidelines for CFTR Mutation Testing and detection rates are estimates derived from variant frequencies from Jaydon et al. (2016). This test detects 139 CFTR gene variants includin CF-causing variants; one variable consequence variant (p.R117H); conditional reporting of the intron 8 poly TG/T tract length when p.R117H is detected; and conditional reporting of three benign variants when p.B538udq is homozygous. METHODS: Genomic DNA was extracted from the submitted peripheral blood specimen using the [employer]. The CFTR gene was tested for the presence of the following variants by next-generation sequencing using the [employer] Cystic Fibrosis 139-Variant Assay ([place], [place], [place]); G85E (c.254G>A)*, R117H (c.350G>A)*, 621+1G>T (c.489+1G>T)*, 711+1G>T (c.579+1G>T)*, R553X (c.1657C>T)*, X5160O (c.3484C>T)*, 3659delC (c.3528delC)*, 3849+10kbC>T (c.3717+31519A>T)* , M8771J (c.3846G>A)*, V5799Z (c.3909C>G)*, R347P (c.1040G>C)*, A455E (c.1364C>A)*, B690azy (c.1519_ 1521delATC)*, V544ayk (c.1521_ 1523delCTT)*, 1717-1G>A (c.1585-1G>A)*, R560T (c.1679G>C)*, 1898+1G>A (c.1766+1G>A)*, 2184delA (c.2052delA)*, 2789+5G>A (c.2657+5G>A)*, G542X (c.1624G>T)*, R334W (c.1000C>T)*, G551D (c.1652G>A)*, 3120+1G>A (c.2988+1G>A)*, M1V (c.1A>G)?, CFTR dele2,3 (c.54-5940_273+102 86ydh53tc), ??Q39X (c.115C>T), ?E60X (c.178G>T)?, P67L (c.200C>T), R75X (c.223C>T)?, 394delTT (c.262_263delTT)?, 405+1 G>A (c.273+1G>A), 406-1G>A (c.274-1G>A), E92X (c.274G>T), E92K (c.274G>A), Q98X (c.292C>T), 457TAT>G (c.325_327delTATin sG), D110H (c.328G>C), R117C (c.349C>T), Y122X (c.366T>A), 574delA (c.442delA), 663delT (c.531delT), G178R (c.532G>A), 711+3A>G (c.579+3A>G), 711+5 G>A (c.579+5G>A), 712-1 G>T (c.580-1G>T), H199Y (c.595C>T), P205S (c.613C>T), L206W (c.617T>G), Q220X (c.658C>T), T338I (c.1013C>T), 3272-26A>G (c.3140-26A>G), S6705W (c.3194T>C), A7586A (c.3196C>T), K4527B (c.3197G>A), X8551O (c.3230T>C), W7051U (c.3266G>A), I4165E(C>A) (c.3276C>A), J1272A(C>G) (c.3276C>G), G6510B (c.3302T>A), H1112O (c.3310G>T), E1100Z (c.3472C>T), P4748M (c.3587C>G), N8587B (c.3611G>A), S1435C (c.3612G>A), 3791delC (c.3659delC), D0726F (c.3731G>A), 3876delA (c.3744delA), G7038P (c.3752G>A), 3905insT (c.3773_3774insT), 4005+1G>A (c.3873+1G>A), 4016insT (c.3884_3885insT), A9131O (c.3937C>T), 4209TGTT>AA (c.4077_ 4080delTGTTinsAA), FGQPuvin13,23 (c.3964-78_ 4242+577del), 4382delA (c.4251delA), S341P (c.1021T>C), 1154insTC (c.1022_1023insTC) , R347H (c.1040G>A), R352Q (c.1055G>A), 1213delT (c.1081delT), 1248+1G>A (c.1116+1G>A), 1259insA (c.1127_1128insA), W401X (c.1202G>A), W401X (c.1203G>A), 1341+1G>A (c.1209+1G>A), 0560asb1 (c.1329_ 1330insAGAT), 1525-1G>A (c.1393-1G>A), S466X (C>A) (c.1397C>A), S466X (C>G) (c.1397C>G), L467P (c.1400T>C), 1548delG (c.1418delG), S489X (c.1466C>A), S492F (c.1475C>T), Q493X (c.1477C>T), 1677delTA (c.1545_ 1546delTA), V520F (c.1558G>T), Q525X (c.1573C>T), 1717-8G>A (c.1585-8G>A), A559T (c.1675G>A), R560K (c.1679G>A), 1811+1.6kb A>G (c.1679+1.6kbA>G), 1812-1 G>A (c.1680-1G>A), E585X (c.1753G>T), 1898+3A>G (c.1766+3A>G), 2143delT (c.2011delT), 2183AA >G (c.2051_ 2052delAAinsG), 2184insA (c.2052_2053insA), ??R709X (c.2125C>T), K710X (c.2128A>T), 2307insA (c.2175_2176insA), L732X (c.2195T>G), 2347delG (c.2215delG), R764X (c.2290C>T), 2585delT (c.2453delT), E822X (c.2464G>T), 2622+1G>A (c.2490+1G>A), E831X (c.2491G>T), W846X (c.2537G>A), R851X (c.2551C>T), 2711delT (c.2583delT), Q890X (c.2668C>T), L927P (c.2780T>C), S945L (c.2834C>T), 07gwn63 (c.720_ 741delAGGGAGAATGAT GATGAAGTAC), 1078delT (c.948delT), G330X (c.988G>T), I336K (c.1007T>A), S549R (c.1645A>C), 3007delG (c.2875delG), S549N (c.1646G>A), G970R (c.2908G>C), S549R (c.1647T>G), 3120G>A (c.2988G>A), Q552X (c.1654C>T), 3121-1G>A (c.2989-1G>A) Reflex reporting with homozygous p.X349kmm or p.D517ntz: I506V (c.1516A>G), I507V (c.1519A>G), F508C (c.1523T>G) Reflex reporting with p.R117H: PolyTG/PolyT [Asterisks indicate the 23 variants recommended by the ACMG.] LIMITATIONS AND DISCLAIMERS: 1. The results obtained should be used and interpreted in the context of a full clinical evaluation. 2. The product is designed to identify a specific subset of known variants in the CFTR gene, but does not include all variants identified in the CFTR gene. Therefore, if a variant is not identified, it does not guarantee that other CFTR variants are not present in the samples being analyzed. 3. Conditional reporting has been recommended by ACMG/ACOG for four variants that are considered problematic in interpretation due to the complexity of their association with other variants. The conditionally reported variants in the [employer] Cystic Fibrosis 139-Variant assay consist of the polyTG/polyT region (which is reported when the R117H variant is identified) and benign variants I506V, I507V, and T450D27 (reported when a homozygous I580rap or M254fmi are identified) 4. The assay cannot determine whether the orientation of the PolyTG/PolyT variant is in cis/trans to the R117H variant. For patients with an R117H variant, additional testing to determine whether a PolyTG/PolyT variant, which may affect the clinical phenotype (e.g., 12-13(TG) or 5T), is in a cis/trans orientation to the R117H variant should be performed. 5. Variants identified by this assay vary in frequency among different populations. 6. While much is known about the severity of the disease for some of the variants, for others, information is limited and is based on a limited number of reported clinical cases. 7. Laboratory errors are rare but can occur. Underlying differences in a patient? s DNA or other analytical factors can affect the performance of the assay, and consequently result in calls being made or missed. 8. This test is not indicated for screening, diagnostic testing, pre-implantation testing, or for stand-alone diagnostic purposes. 9. This test has been approved by the U.S. Food and Drug Administration. Performance characteristics have been verified by the [facility] [employer] ([facility]) Laboratory at [facility]. REFERENCES: 1. ACOG/ACMG. Preconception and carrier screening for cystic fibrosis. 2001, pp.1-31. 2. Jaydon Holt, Angela Busby, Valerio S, Alysa Hurst, Alexandra Khalil, Cierra Hurst. The Spectrum of CFTR Variants in Nonwhite Cystic Fibrosis Patients: Implications for Molecular Diagnostic Testing. J Mol Diagn. 2016 Feb;18(1):39-50. [PMID: 55149061] 3. AC, Technical Standards and Guidelines for CFTR Mutation Testing, 2008 Edition (Accessed April 2018) https://www.acmg.n et/docs/CFTR_Mutat ion_Testing_2010.p df [facility] Comment: [VERIFIED DATE]12.01.20 Verified By:Jeremi PhD, Simon Claros Director, Molecular Pathology (Electronic Signature) Blood 11/27/2020 11:0 1 AM EDT 11/27/2020 12:51 PM EDT Narrative Resulting Agency Comment Spec In Lab Darline Martinez MD MOLECULAR ORDERABL ES [facility] [place] [address] * Spinal Muscular Atrophy (11/27/2020 11:01 AM EDT) SMA PCR Interpretation Spinal Muscular Atrophy (SMA) Diagnostic Testing or Carrier Screening INDICATION FOR STUDY: carrier screening or suspected SMA ANALYSIS: ??Copy Number Assessment of SMN1 and SMN2 for Diagnostic Testing or Carrier Screening for Spinal Muscular Atrophy (SMA) SPECIMEN TYPE: peripheral blood SMN1 RESULT: 2 copies of the SMN1 gene detected RESULT SUMMARY: NORMAL INTERPRETATION: This result greatly reduces but does not eliminate the possibility of SMA carrier status. This test cannot differentiate ? silent carrier? individuals with two copies of SMN1 on one copy of chromosome 5 and zero copies of SMN1 on the other copy of chromosome 5 (a 2/0 configuration) from the normal configuration with one copy of SMN1 on each chromosome (1/1). In addition to deletion of the entire SMN1 gene, some cases of SMA are associated with smaller deletions or other pathogenic variants in SMN1 that are not detected by this assay. Carrier Detection, Risk and Residual Risk with Normal Result by Race/Ethnicity (J Med Loan 2009;6:641-4): : Carrier detection (95%); Carrier Risk (1:35); Residual risk if 2 Copies SMN1 (1:632); Residual Risk if 3 Copies SMN1 (1:3,500) Ashkenazi Mandaen: The carrier detection (90%); Carrier Risk (1:41); Residual risk if 2 Copies SMN1 (1:350); Residual Risk if 3 Copies SMN1 (1:4,000) : The carrier detection (93%); Carrier Risk (1:53); Residual risk if 2 Copies SMN1 (1:628); Residual Risk if 3 Copies SMN1 (1:5,000) : The carrier detection (71%); Carrier Risk (1:66); Residual risk if 2 Copies SMN1 (1:121); Residual Risk if 3 Copies SMN1 (1:3,000) : The carrier detection (91%); Carrier Risk (1:117); Residual risk if 2 Copies SMN1 (1:1,061); Residual Risk if 3 Copies SMN1 (1:11,000) If being used for diagnostic testing, this result is generally not associated with a diagnosis of SMA but additional testing such as gene sequencing may be considered if clinically indicated. SMN2 RESULT: SMN2 copy number: 1 SMN2 copy number is correlated with degree of SMA phenotype among affected individuals but has no direct impact on SMA carrier status. METHODS: ??DNA is isolated from leukocytes in a peripheral blood specimen and subjected to droplet digital PCR to determine SMN1 and SMN2 gene copy numbers relative to the RPP30 gene. The droplet digital PCR is performed using SMN1 and SMN2 specific assays targeting sequences within exon 7 of these genes that allow for differentiation of these two genes. LIMITATIONS AND DISCLAIMERS: ??This assay only detects SMN1 and SMN2 gene copy numbers. It cannot detect ? silent carriers? (2/0 configuration of SMN1 gene) or other pathogenic variants in SMN1. Unrecognized sequence variants in the SMN1 or SMN2 genes could interfere with the performance of this assay, theoretically leading to inaccurate results. This test was developed and its performance characteristics determined by the [facility] at [facility]. It has not been cleared or approved by the FDA. The laboratory is regulated under CLIA as qualified to perform high-complexity testing. This test is used for clinical purposes. It should not be regarded as investigational or for research. [facility] Comment: [VERIFIED DATE]12.01.20 Verified By:Jeremi PhD, Simon Claros Director, Molecular Pathology (Electronic Signature) Blood 11/27/2020 11:0 1 AM EDT 11/27/2020 12:51 PM EDT Narrative Resulting Agency Comment Spec In Lab Darline Martinez MD MOLECULAR ORDERABL ES [facility] [place] [address] documented in this encounter Visit Diagnoses Diagnosis Supervision of high risk in first trimester Unspecified high-risk Multigravida of advanced maternal age in first trimester documented in this encounter Care Teams Pulp Screen Operator Relationship Specialty Start Date End Date Cielo Goncalves MD [address] [place] [address] PCP - General 01/16/10 documented as of this encounter
--- OUTSIDE RECORDS SUMMARY | 2024-01-26 11:48 | XMS_ITS | Referral Summary ---
Author Organization [facility] Address [address] [place] [address] Care Team Providers Care Public Relations Counselor Name Role Phone Unknown, Provider Primary Care Provider Unava ilable Social History Tobacco Use Types Packs/Day Years Used Date Smoking Tobacco: Never Assessed Interpersonal Safety Answer Date Record ed Physically Hurt Never 09/26/2019 Verbally Threaten Not on file 09/26/2019 Comments Unknown Sex and Gender Information Value Date Recorded Sex Assigned at Not on file Legal Sex Female 18:13 EST Gender Identity Not on file Sexual Orientation Not on file Plan of Treatment Not on file Procedures Procedure Name Priority Date/Time Associated Diagnosis Comments HEPATITIS C AB W REFLEX TO HCV RNA BY PCR Routine 11/20/2020 15:33 EDT from Last 3 Months or Most Recently Relevant to Health Maintenance Results * HEPATITIS C AB W REFLEX TO HCV RNA BY PCR (11/20/2020 15:33 EDT) Hep C Antibody Negative Negative 11/21/2020 12:27 EDT [facility] Blood VENOUS BLOOD / Unknown 11/20/2020 15:33 EDT 11/20/2020 20:58 EDT us Provider Outr Resulting Lab CHEMISTRY & BLOOD GA S ORDERABLES Final Result [facility] [address] [place] [address] from Last 3 Months or Most Recently Relevant to Health Maintenance Insurance MEDICAID [place] Care Teams Public Relations Counselor Relationship Specialty Start Date End Date Unknown, Provider, PCP - General 12/31/14
--- OUTSIDE RECORDS SUMMARY | 2024-01-26 11:48 | XMS_ITS | Encounter Summary ---
Author Organization [facility] [place] [address] Care Team Providers Care Historical Records Administrator Name Role Phone Cielo Goncalves MD Primary Care Provider [phone] Reason for Visit * Reason Comments Acne Encounter Details Date Type Department Care Team (Late st Contact Info) Description 05/16/2011 1:15 PM EDT Office Visit Dermatology [address] [place] [address] [address] [place] [address] Odilon Monae MD [address], JOSE RAMON A DERMATOLOGY [place], [place] [id number] Acne vulgaris (Primary Dx) Social History Tobacco Use Types Packs/Day Years Used Date Smoking Tobacco: Never Sex and Gender Information Value Date Recorded Sex Assigned at Female 05/03/2021 8:13 PM EST Gender Identity Female 05/03/2021 8:13 PM EST Sexual Orientation Not on file documented as of this encounter Progress Notes * Odilon Monae MD - 05/16/2011 1:48 PM EDT Problem: Acne vulgaris. Nilda follows up after I last saw her in 2006. She had been doing well with her acne vulgaris/acne excoriee with tetracycline, but when this no longer was available she was switched to minocycline and erythromycin, neither of which worked well for her, and typically the minocycline caused her to have significant vaginal itching. She is referred back to see me by Dr. Rodriguez for other treatment options. Physical examination reveals a fair-skinned, red-haired 36-year-old woman here with her two sons, Stevan and Josr. She has excoriated erythematous papules on the chin, forehead, and cheeks consistent with excoriated acne vulgaris. She does not have any deep seated or cystic lesions. She does not have deep seated conglobate scarring acne vulgaris. Assessment and Plan: Acne vulgaris/acne excoriee. a. Discussed the option of obtaining tetracycline through [facility] online. b. Patient would like to pursue this, and she was given website, and she will contact them. c. Will fax prescription for tetracycline 250 mg to be taken two p.o. b.i.d., dispensed #300 with five refills to [facility] online. d. The patient knows that she should be seeing improvement within two months of starting medication. Return to clinic here if that is not the case. Copy: Cielo Goncalves M.D. documented in this encounter Plan of Treatment Not on file documented as of this encounter Visit Diagnoses Diagnosis Acne vulgaris- Primary Other acne documented in this encounter Care Teams Historical Records Administrator Relationship Specialty Start Date End Date Cielo Goncalves MD [address] [place] [address] [address] [place] [address] PCP - General 01/16/10 documented as of this encounter
--- OUTSIDE RECORDS SUMMARY | 2024-01-26 11:48 | XMS_ITS | Encounter Summary ---
Author Organization [facility] Address [facility] [place] [address] Care Team Providers Care Senior Health Physics Technician Name Role Phone Cielo Goncalves MD Primary Care Provider [phone] Encounter Details Date Type Department Care Team (Latest Contact Info) Description 02/06/2021 10:45 AM EST - 02/06/2021 11:59 PM EST Hospital [place] [address] Darline García MD [facility] [address] Supervision of high risk in first trimester; Multigravida of advanced maternal age in first trimester Discharge Disposition: Home Social History Tobacco Use [...] on file documented as of this encounter Medications at Time of Discharge [...] 30 tablet 2 05/04/2021 vitamin 27 & [id number] 60 mg iron-1 mg Tablet Take 1 [...] Capsule Take 1 capsule by mouth daily. labetaloL (Normodyne) 200 mg Tablet TAKE 1 TABLET BY MOUTH TWICE DAILY. THIS REPLACES METOPROLOL 10/20/2020 05/04/2021 aspirin EC 81 mg Tablet, Delayed Release (E.C.) Take 81 mg by mouth daily. 05/04/2021 documented as of this encounter Plan of Treatment Not on file documented as of this encounter Procedures Procedure Name Priority Date/Time Associated Diagnosis Comments US OB DETAILED MORPHOLOGY Routine 02/06/2021 11:55 AM EST Supervision of high risk in first trimester Multigravida of advanced maternal age in first trimester documented in this encounter Results * US OB Detailed Morphology (02/06/2021 11:55 AM EST) Anatomical Region Laterality Modality Pelvis, Abdomen Ultrasound 02/06/2021 11:4 2 AM EST Impressions 02/06/2021 1:08 PM EST 2nd Trimester - Detailed Morphology - Summary Single intrauterine with a gestational age of 22w 3d based on LMP ??(07/10/21) Composite age based on the current ultrasound alone is 23w 3d. Current growth parameters are consistent with prior dating indicating normal growth. Amniotic fluid volume is Normal Detailed anatomic evaluation was performed and no structural abnormalities are noted. Thank you for letting us participate in the care of this patient. If you are a health care provider and have any questions regarding this report, please contact the number above. For patients who have questions, please contact the health customer care consultant that requested your imaging first. ?Gus Parikh, Staff Physician Electronically Signed Final Report ?? 02/06/2021 01:07 pm Narrative 02/06/2021 1:08 PM EST OBSTETRICS REPORT ?(Signed Final 02/06/2021 01:07 pm) PATIENT INFO: ID #: ? [id number] ?: ??[birth year] (46 yrs)(F) Name: ? EDWAR J ALBERTO ? Visit Date: 02/06/2021 11:42 am PERFORMED BY: Performed By: ? Jaylene Omalley RDMS Attending: ?Jl RIVERA, Gus Greer Referred By: ?DARLINE GARCÍA Location: ? [place] SERVICE(S) PROVIDED: [facility] - Detailed Morphology - [id number] ? [id number] INDICATIONS: 22 weeks gestation of ?Z3A.22 morphology AMA VITAL SIGNS: Weight (lb): 207.0 Height: ?5'2 ? BMI: ? 37.86 EVALUATION: Num Of Fetuses: ? 1 Heart Rate(bpm): ??161 Cardiac Activity: ? Observed, normal rhythm Presentation: ? Variable Placenta: ? Anterior Fundal P. Cord Insertion: ?Within Normal Limits Amniotic Fluid NEREIDA FV: ?Normal --------- BIOMETRY: --------- BPD: ?56.9 ??mm ? G.Age: ?? 23w 3d OFD: ?74.1 ??mm HC: ?211.4 ??mm ? G.Age: ?? 23w 2d AC: ?190.6 ??mm ? G.Age: ?? 23w 5d FL: ? 40.5 ??mm ? G.Age: ?? 23w 1d HUM: ?37.9 ??mm ? G.Age: ?? 23w 2d CER: ?24.0 ??mm ? G.Age: ?? 22w 0d NFT: ?3.88 ??mm NB: ?8.3 ??mm LV: ?8.7 ??mm CM: ?4.3 ??mm CI: ?76.8 ??% ? 70 - 86 FL/HC: ? 19.2 ??% ? 18.4 - 20.2 HC/AC: ? 1.11 ?1.06 - 1.25 FL/BPD: ?71.2 ??% ? 71 - 87 FL/AC: ? 21.2 ??% ? - Est. FW: ? 597 ??gm ?1 lb 5 oz OB HISTORY: Blood Type: ?? O+ : ?8 ?SAB: ?? 3 Living: ? 4 GESTATIONAL AGE: LMP: ? 22w 3d ?Date: ??09/02/20 ? CAMILA: ?? 06/09/21 U/S Today: ? 23w 3d ?CAMILA: ?? 06/02/21 Best: ?22w 3d ?? Det. By: ??LMP ??(09/02/20) ?CAMILA: ?? 06/09/21 TARGETED ANATOMY: Central Nervous System Calvarium/Cranial V.: ??Within Normal Limits Intracranial Gladys: ? Within Normal Limits Cavum: ? Within Normal Limits Parenchyma: ?Within Normal Limits Lateral Ventricles: ?Within Normal Limits Choroid Plexus: ?Within Normal Limits Cereb./Vermis: ? Within Normal Limits Cisterna Magna: ?Within Normal Limits Midline Falx: ?Within Normal Limits Spine Cervical: ?Visualized Thoracic: ?Visualized Lumbar: ?Visualized Sacral: ?Visualized Shape/Curvature: ? Visualized Head/Neck Face: ?Within Normal Limits Lips: ?Within Normal Limits Neck: ?Within Normal Limits Nuchal Fold: ? Within Normal Limits Nasal Bone: ?Present Profile: ? Visualized Orbits/Eyes: ? Visualized Mandible: ?Visualized Maxilla: ? Visualized Thorax Thoracic Contour: ?Within Normal Limits Lungs: ? Visualized 4 Chamber View: ?Within Normal Limits Cardiac Activity: ?Normal Rhythm Rt Outflow Tract: ?Visualized Lt Outflow Tract: ?Visualized Aortic Arch: ? Visualized Ductal Arch: ? Visualized SVC: ? Visualized Cardiac [place]: ?Visualized Diaphragm: ? Visualized 3 Vessel View: ? Visualized IVC: ? Visualized Abdomen Ventral Wall: ?Visualized Cord Insertion: ?Visualized Situs: ? Normal Stomach: ? Visualized Liver: ? Visualized Lt Kidney: ? Visualized Rt Kidney: ? Visualized Bladder: ? Visualized Bowel: ? Visualized Extremities Lt Humerus: ?Within Nomal Limits Rt Humerus: ?Within Normal Limits Lt Forearm: ?Within Normal Limits Rt Forearm: ?Within Normal Limits Lt Hand: ? Within Normal Limits Rt Hand: ? Within Normal Limits Lt Femur: ?Within Normal Limits Rt Femur: ?Within Normal Limits Lt Lower Leg: ?Within Normal Limits Rt Lower Leg: ?Within Normal Limits Lt Foot: ? Visualized Rt Foot: ? Visualized Other Umbilical Cord: ?3 vessel cord Genitalia: ? Female CERVIX UTERUS ADNEXA: Right Ovary Not visualized Left Ovary Size(cm) ? 3.0 ??x ?? 2.9 ?x ??1.6 ? Vol(ml): 7.3 Visualized ------- MYOMAS: ------- Site ? L(cm) ? W(cm) ? D(cm) ? Location Anterior ? 2.5 ? 2.5 ? 2.3 ? Intramural Blood Flow ?RI ? PI ? Comments Procedure Note Gus Parikh MD - 02/06/2021 OBSTETRICS REPORT (Signed Final 02/06/2021 01:07 pm) PATIENT INFO: ID #: [id number] : 75 (46 yrs)(F) Name: EDWAR DOMINGUEZ Visit Date: 02/06/2021 11:42 am PERFORMED BY: Performed By: Jaylene Omalley RDMS Attending: Gus Parikh MD Referred By: DARLINE GARCÍA Location: [place] SERVICE(S) PROVIDED: [facility] - Detailed Morphology - [id number] INDICATIONS: 22 weeks gestation of Z3A.22 morphology AMA VITAL SIGNS: Weight (lb): 207.0 Height: 5'2 BMI: 37.86 EVALUATION: Num Of Fetuses: 1 Heart Rate(bpm): 161 Cardiac Activity: Observed, normal rhythm Presentation: Variable Placenta: Anterior Fundal P. Cord Insertion: Within Normal Limits Amniotic Fluid NEREIDA FV: Normal --------- BIOMETRY: --------- BPD: 56.9 mm G.Age: 23w 3d OFD: 74.1 mm HC: 211.4 mm G.Age: 23w 2d AC: 190.6 mm G.Age: 23w 5d FL: 40.5 mm G.Age: 23w 1d HUM: 37.9 mm G.Age: 23w 2d CER: 24.0 mm G.Age: 22w 0d NFT: 3.88 mm NB: 8.3 mm LV: 8.7 mm CM: 4.3 mm CI: 76.8 % 70 - 86 FL/HC: 19.2 % 18.4 - 20.2 HC/AC: 1.11 1.06 - 1.25 FL/BPD: 71.2 % 71 - 87 FL/AC: 21.2 % 20 - 24 Est. FW: 597 gm 1 lb 5 oz OB HISTORY: Blood Type: O+ : 8 SAB: 3 [place] GESTATIONAL AGE: LMP: 22w 3d Date: 09/02/20 CAMILA: 06/09/21 U/S Today: 23w 3d CAMILA: 06/02/21 Best: 22w 3d Det. By: LMP (09/02/20) CAMILA: 06/09/21 TARGETED ANATOMY: Central Nervous System Calvarium/Cranial V.: Within Normal Limits Intracranial Gladys: Within Normal Limits Cavum: Within Normal Limits Parenchyma: Within Normal Limits Lateral Ventricles: Within Normal Limits Choroid Plexus: Within Normal Limits Cereb./Vermis: Within Normal Limits Cisterna Magna: Within Normal Limits Midline Falx: Within Normal Limits Spine Cervical: Visualized Thoracic: Visualized Lumbar: Visualized Sacral: Visualized Shape/Curvature: Visualized Head/Neck Face: Within Normal Limits Lips: Within Normal Limits Neck: Within Normal Limits Nuchal Fold: Within Normal Limits Nasal Bone: Present Profile: Visualized Orbits/Eyes: Visualized Mandible: Visualized Maxilla: Visualized Thorax Thoracic Contour: Within Normal Limits Lungs: Visualized 4 Chamber View: Within Normal Limits Cardiac Activity: Normal Rhythm Rt Outflow Tract: Visualized Lt Outflow Tract: Visualized Aortic Arch: Visualized Ductal Arch: Visualized SVC: Visualized Cardiac [place]: Visualized Diaphragm: Visualized 3 Vessel View: Visualized IVC: Visualized Abdomen Ventral Wall: Visualized Cord Insertion: Visualized Situs: Normal Stomach: Visualized Liver: Visualized Lt Kidney: Visualized Rt Kidney: Visualized Bladder: Visualized Bowel: Visualized Extremities Lt Humerus: Within Nomal Limits Rt Humerus: Within Normal Limits Lt Forearm: Within Normal Limits Rt Forearm: Within Normal Limits Lt Hand: Within Normal Limits Rt Hand: Within Normal Limits Lt Femur: Within Normal Limits Rt Femur: Within Normal Limits Lt Lower Leg: Within Normal Limits Rt Lower Leg: Within Normal Limits Lt Foot: Visualized Rt Foot: Visualized Other Umbilical Cord: 3 vessel cord Genitalia: Female CERVIX UTERUS ADNEXA: Right Ovary Not visualized Left Ovary Size(cm) 3.0 x 2.9 x 1.6 Vol(ml): 7.3 Visualized ------- MYOMAS: ------- Site L(cm) W(cm) D(cm) Location Anterior 2.5 2.5 2.3 Intramural Blood Flow RI PI Comments IMPRESSION 2nd Trimester - Detailed Morphology - Summary Single intrauterine with a gestational age of 22w 3d based on LMP (09/02/20) Composite age based on the current ultrasound alone is 23w 3d. Current growth parameters are consistent with prior dating indicating normal growth. Amniotic fluid volume is Normal Detailed anatomic evaluation was performed and no structural abnormalities are noted. Thank you for letting us participate in the care of this patient. If you are a health care provider and have any questions regarding this report, please contact the number above. For patients who have questions, please contact the health customer care consultant that requested your imaging first. Gus Parikh, Staff Physician Electronically Signed Final Report 02/06/2021 01:07 pm Darline García MD IMG OB ORDERABL ES documented in this encounter Visit Diagnoses Diagnosis Supervision of high risk in first trimester Unspecified high-risk Multigravida of advanced maternal age in first trimester documented in this encounter Care Teams Senior Health Physics Technician Relationship Specialty Start Date End Date Cielo Goncalves MD [address] [place] [address] PCP - General 01/16/10 documented as of this encounter
--- OUTSIDE RECORDS SUMMARY | 2024-01-26 11:48 | XMS_ITS | Encounter Summary ---
Author Organization [facility] Address [address] [facility] [place] [address] Care Team Providers Care Lift Team Technician Name Role Phone Cielo Goncalves MD Primary Care Provider Encounter Details Date Type Department Care Team (Late st Contact Info) Description 11/21/2008 Interpretation Only Radiology [address] [facility] [address] [place] [id number] Unknown None Social History Tobacco Use Types Packs/Day Years Used Date Smoking Tobacco: Never Assessed Sex and Gender Information Value Date Recorded Sex Assigned at Female 05/03/2021 8:13 PM EST Gender Identity Female 05/03/2021 8:13 PM EST Sexual Orientation Not on file documented as of this encounter Plan of Treatment Not on file documented as of this encounter Procedures Procedure Name Priority Date/Time Associated Diagnosis Comments XR FLUORO NO RAD <1HR - RADIOLOGY USE Routine 11/21/2008 7:12 AM EDT documented in this encounter Results * XR Fluoro <1Hr - Radiology Use (11/21/2008 7:12 AM EDT) Anatomical Region Laterality Modality N/A Radiographic Marline ging 11/21/2008 7:12 AM EDT Narrative 11/21/2008 7:12 AM EDT APD Historical Result Principal Tube Draw Helper: ??ELIANA ??CANDY FLUOROSCOPY: A total of 3 seconds of fluoroscopic assistance was provided to Dr Yadav for a procedure. ??No Radiologist was present. ??Two digital images were archived. ??These reveal sequential placement of linear devices from the posterior aspect of the patient. ??On the 2nd image, the linear device tip overlies the spinal canal at what appears to be the L4-5 disc space level. ??However, additional confirmatory films are not available for comparison. Eliana Gupta MD KG/rm [id number] CC: Procedure Note Unknown - 08/24/2018 APD Historical Result Principal Tube Draw Helper: ELIANA GUPTA FLUOROSCOPY: A total of 3 seconds of fluoroscopic assistance was provided to Myriam for a procedure. No Radiologist was present. Two digital images were archived. Thesereveal sequential placement of linear devices from the posterior aspect of the patient. On the 2ndimage, the linear device tip overlies the spinal canal at what appears to be the L4-5 disc spacelevel. However, additional confirmatory films are not available for comparison. Eliana Gupta MD KG/rm [id number] CC: Unknown IMG FLUORO ORDERABLE S documented in this encounter Visit Diagnoses Not on filedocumented in this encounter Care Teams Lift Team Technician Relationship Specialty Start Date End Date Cielo Goncalves MD [address] [place] [address] PCP - General 01/16/10 documented as of this encounter
--- OUTSIDE RECORDS SUMMARY | 2024-01-26 11:48 | XMS_ITS | Encounter Summary ---
Author Organization [facility] Address [address] [place] [address] Care Team Providers Care Drop Pit Worker Name Role Phone Unknown, Provider Primary Care Provider Tiffany garcia Encounter Details Date Type Department Care Team (Late st Contact Info) Description 11/20/2020 Lab Requisition [facility] Pathology & Laboratory Medicine - [facility] [address] [place], [place] [id number] Outr Resulting Lab, Provider Social History Tobacco Use Types Packs/Day Years [...] Procedure Name Priority Date/Time Associated Diagnosis Comments HIV 1/2 ANTIGEN AND ANTIBODY, 4TH GENERATION Routine 11/20/2020 15:33 EDT documented in this encounter Results * HIV 1/2 ANTIGEN AND ANTIBODY, 4TH GENERATION (11/20/2020 15:33 EDT) HIV 1 and 2 Antibody/p24 Antigen, 4th Generation Negative Negative 11/21/2020 13:27 EDT [facility] Comment: If acute HIV-1 infection is suspected in a high risk ??patient, submit plasma specimen for HIV-1 RNA quantitation test. Fourth Generation assay performed on the Siemens DreamDryaur. Blood VENOUS BLOOD / Unknown 11/20/2020 15:33 EDT 11/20/2020 20:58 EDT us Provider Outr Resulting Lab IMMUNOLOGY AND SEROL OGY ORDERABLES Final Result [facility] [address] [place] [id number] documented in this encounter Visit Diagnoses Not on filedocumented in this encounter Care Teams Drop Pit Worker Relationship Specialty Start Date End Date Unknown, Provider, PCP - General 12/31/14 documented as of this encounter
--- OUTSIDE RECORDS SUMMARY | 2024-01-26 11:48 | XMS_ITS | Encounter Summary ---
[place] [address] Care Team Providers Care Glacing Machine Tender Name Role Phone Cielo Goncalves MD Primary Care Provider [phone] Reason for Referral * Diagnostic Test (Routine) - Closed Specialty Diagnoses / Procedures Referred By Contac t Referred To Contact Cardiology Diagnoses History of cardiac arrhythmia Procedures Ziopatch 48 Hrs-15 Days Yusra Calabrese MD [facility] OBSTETRICS & [place] [address] [facility] [place] [address] Referral ID Status Reason Start Date Expiration Date V isits Requested Visits Authorized [id number] Closed Specialty Service Requested 05/04/2021 11/04/2021 1 1 * Diagnostic Test (Routine) - Closed Specialty Diagnoses / Procedures Referred By Contac t Referred To Contact Cardiology Diagnoses History of cardiac arrhythmia Procedures Luis Eopademetri 48 Hrs-15 Days Yusra Calabrese MD [facility] [place] [address] [facility] [place] [address] Referral ID Status Reason Start Date Expiration Date V isits Requested Visits Authorized [id number] Closed Specialty Service Requested 05/04/2021 11/04/2021 1 1 Reason for Visit * Auth/Cert Specialty Diagnoses / Procedures Referred By Contac t Referred To Contact Diagnoses Preeclampsia, severe Preeclampsia, severe Procedures C SECTION DELIVERY Referral ID Status Reason Start Date Expiration Date Visits Re quested Visits Authorized [id number] 1 1 Encounter Details Date Type Department Care Team (Latest Contact Info) Description 04/24/2021 11:20 PM EST - 05/04/2021 6:50 PM EST Hospital [place] [id number] aZra Olsen MD [facility] [place] [address] Avelina Tapia MD [facility] [place] [address] Severe pre-eclampsia in third trimester; History of cardiac arrhythmia; Stage 3a chronic kidney disease; Spontaneous Discharge Disposition: Home Social History Tobacco Use [...] Sign Reading Time Taken Comments Blood Pressure 113/63 05/04/2021 3:42 PM EST Pulse 88 05/04/2021 8:30 AM EST Temperature 36.7 ??C (98.1 ??F) 05/04/2021 3:39 PM ES T Respiratory Rate 16 05/04/2021 3:39 PM EST Oxygen Saturation 99% 05/04/2021 8:30 AM EST Inhaled Oxygen Concentration - - Weight 93 kg (205 lb 0.4 oz) 04/30/2021 6:00 AM EST Height 157.5 cm (5' 2) 04/24/2021 11:41 PM EST Body Mass Index 37.5 04/24/2021 11:41 PM EST documented in this encounter Discharge Summaries * Yusra Calabrese MD - 05/04/2021 3:13 PM EST Discharge Summary Patient Name: Edwar Dominguez Patient Age: 46 y.o. Language: Uzbek Race: White Ethnicity: Not nor Admit date: 04/24/2021 Discharge date and time: 05/04/2021 Attending Physician: Zara Olsen MD Discharge Physician: Eduardo Sue MD Care Provider: [facility] Referring Hospital: n/a Follow-up Recommendations for Providers: -BP check on BP triage on POD#7 -routine follow up visit at 6 weeks at [facility] Inpatient Provider Contact Information: [employer] Department, Discharge Diagnoses (Hospital Problems) and Secondary Diagnoses (Chronic Problems) Active Hospital Problems Diagnosis ??? BMI 36.0-36.9,adult ??? History of cardiac arrhythmia ??? Preeclampsia, severe ??? AMA (advanced maternal age) multigravida 35+ ??? CKD (chronic kidney disease) stage 3, GFR 30-59 ml/min ??? History of premature rupture of membranes (PROM) in previous , currently , first trimester ??? Hypertension ??? Ulcerative colitis Resolved Hospital Problems No resolved problems to display. Active Non-Hospital Problems Diagnosis ??? Depression ??? Spontaneous ??? Acne vulgaris Operations/Major Procedures: 04/29/21: Primary low transverse section with bilateral salpingectomy Indication for Admission: Preeclampsia with severe features by blood pressure superimposed on cHTN History of Presentation: Referring Hospital: [facility] Referring Provider: Dr. Rosaura Coto Initial Care Provider (if early referral or co-managed by [facility]): N/A ?? ID: Ewdar Dominguez is a 46 y.o. at 33w4d gestation (by 11 week US) being admitted as a transfer from [facility] for preeclampsia with severe features superimposed on chronic hypertension ?? HPI: Edwar reports she presented 04/24/2021 for a scheduled NST and at that time had a mildly elevated blood pressure. She had been feeling relatively well up until that time aside from some sinus congestion for which she took Sudafed. She was discharged home, and after that, she started to have increasing symptoms of malaise, nausea, dry mouth, sensation of generalized discomfort. She presented back to Labor and Delivery, where she was found to have a severe-range blood pressure of 160s and 170s systolic. She received 200 mg PO labetalol, 5 mg IV hydralazine, 10 mg IV hydralazine. She was initiated on IV magnesium sulfate 4 gm bolus with 2 g/hr continuous rate. Decision was made to transferthe patient given her medical comorbidities, gestational age after discussion with Dr. Olsen, accepting MFM at [facility]. ?? At this time, Edwar is feeling ok. Her mouth is quite dry and she is asking for water. She reportssome nausea but has not vomited. She has been having some noticeable contractions since the start of the ambulance ride from [facility]. She denies headaches, vision changes, chest pain, shortness of breath, cough, abdominal pain, right upper quadrant pain, bleeding, leaking of fluid from vagina, swelling in the hands, face or legs, or leg pain. ?? Presents today with her partner, Harry. This is their fourth child together. Expecting a female named Carmita. Desires?? tubal or bilateral salpingectomy if she has a for control. She did not previously sign a federal consent for for tubal ligation. ?? Her has been complicated by: -- Chronic hypertension: Prior to on Losartan, metoprolol, and spironolactone, which she discontinued as soon as she realized she was . She has been on PO Labetolol 200mg BID since the beginning of . On bASA. She has had reassuring testing. -- Chronic kidney disease Stage 3a: Last creatinine 0.7, previously as high as 1.18. GFR 45-59, albumin/creatinine ratio <30. 24 hour urine protein negative on 11/09/2021. -- Gestational diabetes: Early 1-hr GTT 93, repeat not seen in records but was diagnosed with GDM and recently started on 4 U NPH nightly. -- Ulcerative colitis: Stable and well controlled on mesalamine. -- History of preeclampsia with first : Diagnosed at 35 weeks, followed by spontaneous PPROM resulting in progressive labor. -- History of hemorrhage: Did not require blood transfusion. She recalls that this was related to a cervical laceration which she states they put ice on my cervix. No other hemorrhages with her other deliveries. -- History of cholecystectomy -- History of inguinal hernia surgery (open) on right as teenager -- History of back surgery, complicated by an intraoperative heart arrhythmia, follow-up ECHO normal ?? Review of Systems- Negative to complete review except as noted in the HPI. ?? Obstetric Review of Systems Total Weight Gain this 7.258 kg (16 lb) Movement: normal Contractions: noticing some regular q2-5 mn regular uterine contractions Leaking: None Bleeding; none now Preeclampsia signs and symptoms: None ?? Hospital Course Including Delivery and Events Edwar was admitted to the BP and found to have normotensive to mild range Bps, though met criteriafor preeclampsia with SF based on IV treatment of BP at the OSH. MgSO4 was continued for seizure ppx x 24 hours. HELLP labs were WNL. She received a second dose of betamethasone and was steroid complete on 3/3. She was continued on her home PO labetalol 200mg BID. On HD#3, her insulin was increased from 4 to 8u NPH nightly for GDMA2. On HD#5, she was 34w0d and her blood pressures were mild-moderate range with normal serial HELLP labs and no concerning symptoms of severe preeclampsia. The patient was counseled on delivery recommendation between 34w-35w given her diagnosis of preeclampsia with SF with currently stable clinical status. The patient preferred to move forward with delivery at 34w0d. presentation was found to be transverse and then breech. The patient was counseled on delivery options including ECV > IOL and primary delivery. The patient preferred ECV, which was attempted without anesthesia and successful. Her induction was started with a oneill balloon and low dose pitocin. Penicillin was initiated for GBS prophylaxis. On hospital day 5 (day 2 of IOL), while progressing from early into active labor, Edwar was re-scanned with the ultrasound and her fetus was found to be transverse with the head at maternal left. Decision was made to proceed with urgent delivery given transverse presentation and progressive labor. She subsequently underwent a low transverse section under spinal anesthesia. Her surgery was complicated by a bradycardic episode to a pulse of 27 bpm after administration of her spinal, which resolved with glycopyrrolate. She also had a QBL of 1740mL, largely from bleeding at the hysterotomy during retrieval of the transverse fetus. Liveborn female was born with Apgars of 7 and 9 and a weight of 2750g. Bilateral salpingectomy was performed without complication. Ova artie were normal in appearance. Summary of period by problem: #Sinus Bradycardic Episode in OR -Cardiology was curbside consulted and did not feel further evaluation was strictly necessary, although did discuss that a Ziopatch monitor on discharge would be the most comprehensive workup. This was discussed with Edwar, who elected to go home with a ziopatch for 14 days. She was instructed to go to Cardiology on 4A on discharge to pick out hand the ziopatch. #Pre-Eclampsia with SF by BP superimposed on cHTN -She was restarted on labetalol 200 mg BID, which was increased 400mg BID. After severe range Bps requiring 3 doses of 20mg IV labetalol, she was increased to 400mg TID. On POD#3, she was increased to 600mg TID, with the addition of 30mg BID Nifedipine. Blood pressures control on this regimen was adequate. She will come back to BP triage on PPD#7 for a blood pressure check. #CKD -at baseline, no issues #Ulcerative colitis -continue home meds, stable Otherwise, in the period, her magnesium sulfate was continued for 24 hours for seizure prophylaxis in the setting of her severe preeclampsia. She had no further bradycardic episodes. Her post-operative hemoglobin was 8.8, for which she received a dose of 300 mg IV iron and was instructedto continue her vitamins and start iron supplementation. Her pain was well controlled with oral pain medications. She was tolerating a regular diet, was ambulating and voiding without difficulty, and was passing flatus. Her fundal exam was as expected, andher lochia was within normal limits. She was establishing pumping for her . She was discharged to home on POD#5 with plans for follow up in clinic as above. Delivery Information Information for the patient's : Prashant Dominguez Girl [[id number]] INFORMATION Prashant Dominguez 04/29/2021 9:49 AM by Lower Segment Transverse Sex: female Gestational Age: 34w1d Ariel Measurements: Weight: 6 lb 1 oz (2750 g) APGARS One Minute Five Minutes Ten Minutes Totals: 7 9 EBL: No data found Vital signs at Discharge: BP: 134/86, Heart Rate: 88, Temp: 36.7 ??C (98.1 ??F), Resp: 16, BMI (Calculated): 38.95 Height: 157.5 cm (5' 2) (04/24/21 2341) Weight: 93 kg (205 lb 0.4 oz) (04/30/21 0600) Functional and Cognitive status: At baseline Important Studies and Lab Data: Labs: Last 3 wbc, hgb, hct plt Recent Labs 05/02/21 0435 05/01/21 0315 04/30/21 0510 WBC 11.5* 14.0* 14.3* HGB 8.2* 8.5* 8.8* HCT 24.8* 25.0* 25.8* PLATELET 231 229 226 Recent Results (from the past 72 hour(s)) Aspartate Aminotransferase Result Value Ref Range AST 20 0 - 30 unit/L Creatinine Result Value Ref Range Creatinine 0.70 0.70 - 1.20 mg/dL Estimated GFR 104 >=60 mL/min/1.73 m?? Hemogram Result Value Ref Range WBC 11.5 (H) 4.0 - 9.5 x10(3)/mcL RBC 2.70 (L) 4.00 - 5.21 x10(6)/mcL Hemoglobin 8.2 (L) 11.7 - 15.5 g/dL Hematocrit 24.8 (L) 35.7 - 45.8 % MCV 91.9 82.6 - 94.4 fL MCH 30.4 27.1 - 32.0 pg MCHC 33.1 31.7 - 35.0 g/dL Platelets 231 145 - 357 x10(3)/mcL RDWSD 49.3 (H) 37.0 - 46.0 fL RDWCV 14.9 (H) 11.5 - 14.1 % MPV 8.8 7.6 - 12.9 fL nRBC % Auto 0.2 % nRBC Abs Auto 0.020 (H) 0.000 - 0.000 x10(3)/mcL Differential, Automated Result Value Ref Range Neutrophils % 68.5 % Neutr Abs (ANC) 7.88 (H) 1.70 - 6.10 x10(3)/mcL Lymphocytes % 18.2 % Lymphocytes Abs 2.1 0.9 - 3.2 x10(3)/mcL Monocytes % 6.5 % Monocyte Abs 0.8 0.3 - 0.9 x10(3)/mcL Eosinophils % 1.4 % Eosinophils Abs 0.2 0.0 - 0.4 x10(3)/mcL Basophils % 0.4 % Basophils Abs 0.0 0.0 - 0.1 x10(3)/mcL Immature Gran % 5.00 % Faby Gran Abs 0.58 (H) 0.00 - 0.04 x10(3)/mcL EKG 12 Lead Result Value Ref Range Ventricular rate 85 BPM Atrial Rate 85 BPM P-R Interval 160 ms QRS Duration 76 ms Q-T Interval 346 ms QTC Calculated (Bezet) 411 ms Calculated P Boston 49 degrees Calculated R [place] 2 degrees Calculated T [place] 24 degrees INTERPRETATION Normal sinus rhythm Possible Anterior infarct (cited on or before 25-APR-2021) Abnormal ECG When compared with ECG of 25-APR-2021 17:29, No significant change was found I personally reviewed the tracing and edited the fellows interpretation Confirmed by fellow Madhu Hall ([id number]) on 05/02/2021 3:01:30 PM Confirmed by MD Young Stanislav ([id number]) on 05/02/2021 6:14:43 PM Studies: none Pending Studies and Lab Data: none Discharge Conditions/Prognosis: good Discharge to: Home Contraceptive Plans: bilateral tubal ligation Allergies at Discharge: Allergies Allergen Reactions ??? Sulfamethoxazole Other reaction(s): joints swell ??? Trimethoprim Other reaction(s): joints swell ??? Diatrizoate Meglumine Rash Other reaction(s): Skin Rash ??? Hyoscyamine Other reaction(s): Skin Rash Immunizations Given this Hospitalization: Immunization History Administered Date(s) Administered ??? Moderna Covid-19 Vaccine (100mcg/0.5ml) 06/18/2020, 07/16/2020 Discharge Medications: Your Medications New Medications Dose Details acetaminophen 325 mg Tab Commonly known as: Tylenol Take 2 tablets by mouth every 6 hours. 650 mg Quantity: 30 tablet Refills: 1 ibuprofen 600 mg Tab Commonly known as: Advil Take 1 tablet by mouth every 6 hours as needed for Pain. 600 mg Quantity: 30 tablet Refills: 12 NIFEdipine CC 30 mg Tbsr Commonly known as: Adalat CC Take 1 tablet by mouth 2 times daily. 30 mg Quantity: 30 tablet Refills: 2 vitamin 27 & [id number] 60 mg iron-1 mg Tab Take 1 tablet by mouth daily. Start taking on: May 05, 2021 1 tablet Quantity: 90 tablet Refills: 3 senna-docusate 8.6-50 mg Tab Commonly known as: Pericolace Take 2 tablets by mouth 2 times daily. 2 tablet Quantity: 60 tablet Refills: 11 Continued medications with new dosing Dose Details labetaloL 300 mg Tab Commonly known as: Normodyne Take 2 tablets by mouth 3 times daily. What changed: ?? medication strength ?? See the new instructions. 600 mg Quantity: 180 tablet Refills: 2 Continued medications, unchanged Dose Details lactobacillus rhamnosus (GG) 10 billion cell Cap Commonly known as: CULTURELLE Take 1 capsule by mouth daily. 1 capsule Refills: 0 mesalamine ER 0.375 gram Cp24 Commonly known as: Apriso Take by mouth. Refills: 0 1+1 ORAL Take by mouth. Refills: 0 triamcinolone 0.1 % Oint Commonly known as: Kenalog APPLY A SMALL AMOUNT TO SKIN TWICE DAILY Refills: 0 STOPPED Medications aspirin EC 81 mg Tbec Smoking Status at Discharge: Social History Tobacco Use Smoking Status Never Smoker Smokeless Tobacco Never Used Instructions Given to Patient at Discharge: There are no outpatient Patient Instructions on file for this admission. General Instructions None Future Appointments and Orders Future Appointments and Orders Future Appointments Provider Department Dept Phone 05/06/2021 10:00 AM LAURIE BAUER, [facility]ie [facility] [phone] Future Orders Complete By Expires Maggy 48 Hrs-15 Days [[id number] CPT(R)] 05/02/2021 11/01/2021 Process Instructions: Scheduling Instructions: Questions: Does the patient have a pacemaker? If yes provide HI/LO settings: Apply for 7 or 14 days?: 14 Where will study be performed?: [facility] Durable Medical Equipment Order [EQ148 Custom] As directed Process Instructions: Scheduling Instructions: Comments: Edwar Dominguez [address] [place] [address] (home) Infant's : 04[birth year]29[birth year] Insurance[place] Plan Address Payor Plan Phone Number Payor Plan Fax Number Effective Dates [address] 09/19/2020 - None Entered [facility] [address] Subscriber Name Subscriber Date Member ID EDWAR DOMINGUEZ 1975 [id number] [employer] # [phone] Symphony breast pump [id number] Length of need: 3 months 's diagnosis: Infant born at 34 weeks 1 day Purpose of Appliance: To Initiate and Maintain Medical Necessity: /Lactating Mother- Z39.1 Breast Engorgement relative to born at 34 weeks 1 day gestation Feeding problem of , unspecified P92.9 Premature in ICN from mother P07.30 34 completed weeks P07.37 (34 weeks, 0 days, through 34weeks, 6 days) A standard breast pump will not provide sufficient milk for this baby. [facility] NPI #: [id number] [facility] [place] [facility] [place]ESS [place] MEDICAL NECESSITY FORM (MNF) ORTHOTICS, PROSTHETICS, MEDICAL SUPPLIES & EQUIPMENT All claims for supplies and equipment require a written order. Orders must be signed by a physician, physician kindergarten instructional assistant, or nurse practitioner. All home health plans of care require a physician signature. Copies of the order must be kept in the patient record by both the ordering provider and Durable Medical Equipment (DME) supplier. It is the responsibility of the ordering provider to complete or review this Medical Necessity Form (MNF) and provide adequate documentation supporting the medical need for the items listed. The ordering provider must provide this documentation either for the Medicaid beneficiary to take to the DME supplier of choice, or directly to the DME supplier. The DME perez pplier must be enrolled in [place] Medicaid. The ordering provider must document a description of the device and/or its HCPCs code. If the ordering provider does not provide the HCPCs code, the DME supplier must provide the HCPCs code for all prior authorizations and on all claims, on this form or on other documentation submitted to the [facility] and DXC. The codes submitted to [facility] and DXC must matchthe description documented by the ordering provider. All orders must adhere to state and federal rules and regulations. [place] Medicaid Rules can be found online at [email or web address]. Section A: (must be completed or reviewed and signed by ordering provider) Beneficiary's name: Edwar Dominguez Medicaid ID#: Insurance: [place] Pay[place] Plan Address Payor Plan Phone Number Payor Plan Fax Number Effective Dates [facility] 888 09/19/2020 - None Entered [facility] [address] Subscriber Name Subscriber Date Member ID EDWAR DOMINGUEZ 1975 [id number] Diagnoses: Medical Necessity: /Lactating Mother- Z39.1 Breast Engorgement relative to infant born at 34 weeks 1 day gestation Feeding problem of , unspecified P92.9 Premature Infant in ICN from mother P07.30 34 completed weeks P07.37 (34 weeks, 0 days, through 34weeks, 6 days) A standard breast pump will not provide sufficient milk for this baby. Place of service: Is the beneficiary living in a snf facility? Yes [ ] No[x] Is the request part of a home health plan of care? Yes [x] No[ ] 4. HCPCs Code Description Modifier Medical Necessity of Item Expected Length of Need: 3 months E0604, Hospital Grade Breast Pump __X_ To Initiate and Maintain . A standard breast pump will not provide adequate milk supply for patient. X ___ ___ ___ ___ ___ ___ ___ ___ ___ ___ ___ ___ ___ ___ ___ ___ The [facility] code(s) may be provided by the supplying provider when the ordering provider has includeda clear description of the required item(s). I CERTIFY THAT THE ITEM(S) PRESCRIBED ABOVE IS(ARE) A MEDICALLY NECESSARY PART OF THE COURSE OF TREATMENT AND NOT FOR CONVENIENCE, COMFORT, OR PRECAUTIONARY PURPOSES 5. Ordering provider's name & address: Please see ordering physician signature below - [facility], [address] [place] [id number] 6. Ordering provider's signature: Please see order signature below. Date signed: 04/30/21. 7. Ordering provider's Medicaid provider #: [id number] Phone#: [phone] See back of form for DME information and instructions --- Section B FOR DURABLE MEDICAL EQUIPMENT AND SUPPLIES (completed by the DME supplier) 8. Date supplies/original equipment first dispensed: ____/____/ 9. Name of DME employee completing above information: 10.Signature of DME employee: Phone#: 11. Medicaid DME provider #: Claims: All DME requires an MNF to be submitted with the claim, with the exception of certain itemsthat are identified in the Provider Manual, available at: [email or web address]. For exceptions, an MNF must be kept on file by the DME supplier. Prior Authorization: The DME supplier must include a copy of an MNF with every Prior Authorization request. Fax the MNF and any other supporting documents to the [facility] at . Use of this [facility] Medical Necessity Form is recommended for all prior authorization requests to ensure timely processing. Medicaid may request a copy of the medical record upon audit. *INSTRUCTIONS FOR SECTIONS A & B* Section A must be completed or reviewed, signed, and dated by the ordering physician/physician kindergarten instructional assistant/nurse practitioner. Section B must be completed by the DME supplier when equipment and/or supplies are ordered. Beneficiary's first & last name, and Medicaid ID number. List all relevant diagnoses, including status diagnoses such as colostomy, tracheostomy. If this isan initial order or there have been significant clinical changes, attach documentation reflecting the provider's treatment plan. All DME ordered within a home health plan of care require a physician signature. The place of service in which the item will be used. If it is to be used in a facility, document the facility name and address. A place of service code may be used. List for each item being ordered: HCPCS code (optional for ordering provider, but then must appear on other documentation submitted to [facility] for PA and to [facility] for billing), medical necessity rationale, expected length of need (will be interpreted as months unless stated otherwise), and the number ofitems needed (for example: 2 bottles of sterile saline per month). NOTE: If the quantity ordered ismore than the number allowed (based on customary usage and as listed in the [facility] DME Restriction list, available at: [email or web address]), an explanation from the physician is required. The ordering provider's name and address. The ordering provider's signature must be that of the ordering provider and attests to the validityof the information given. The date of this signature is also required. Medicaid provider number and phone number. To be completed by the DME supplier: the date that the base device was first provided. If there is no base device (for example, incontinence products), document the date the supply was first provided. The name of the DME employee completing the form. DME employee's signature and phone number. DME Medicaid provider number. Questions: Name/Description of requested item: Hospital grade rental breast pump Size requested: Referral to Home Health - at DISCHARGE [[id number] CPT(R)] As directed Process Instructions: Scheduling Instructions: DOCUMENTATION FOR VNA SERVICES (INCLUDING THOSE PATIENTS WITH MEDICARE COVERAGE REQUIRING HOME VNA SERVICES AND/OR HOSPICE SERVICES) PATIENT'S LOCATION: Edwar Dominguez : [address] [place] [phone] (home) Telephone Information: MEDICAID [place] Plan: MEDICAID [place] Member: [id number] Effective from: 09/19/2020 Subscriber: EDWAR DOMINGUEZ Guarantor: EDWAR DOMINGUEZ In discussion with the attending physician, it is certified that this patient is under their care and that they, or a Nurse Practitioner,Clinical Nurse specialist or Physician Trolley Cleaner who is working directly with them, had a face to face encounter that meets the physician face to face encounter requirements with this patient on 05/02/2021 The encounter with the patient was in whole, or in part, for the following medical condition, whichis the primary reason for home health care services: post- from delivery of a at 34 weeks gestation. Preeclampsia with severe features superimposed on cHTN. She also has CKD, ulcerative colitis, cHTN. H/o cardiac arrhythmia Patient Active Problem List ?? Acne vulgaris L70.0 ?? AMA (advanced maternal age) multigravida 35+ O09.529 ?? Hypertension I10 ?? Ulcerative colitis K51.90 ?? History of premature rupture of membranes (PROM) in previous , currently , first trimester O09.291 ?? CKD (chronic kidney disease) stage 3, GFR 30-59 ml/min N18.30 ?? Preeclampsia, severe O14.10 ?? BMI 36.0-36.9,adult Z68.36 ?? Depression F32.A ?? History of cardiac arrhythmia Z86.79 ?? Spontaneous O03.9 In discussion with the provider, it is certified that, based on their findings, the following services are medically necessary for home health services. To provide the following care/treatments with the clinical findings supporting the need for services as follows: HOME CARE ORDERS: HOME HEALTH AGENCY: [facility]. PHONE: [phone] FAX: [phone] RN orders: 1. Assess /postoperative recovery. 2. Assess full set of vital signs, including blood pressure. Please contact [facility] OB-GRAVITY PROSPECTING SUPERVISOR for blood pressure greater than 150mmHG/90mmHG. Need blood pressure assessment/monitoring on day7 post-. 3. Assess breast pumping 4. Assess clinical status including risk for depression. 5. Provide anticipatory guidance for maternal post period and assist with connecting to appropriate community resources. Start of care within 24-96 hours post discharge. Will need blood pressure check on Friday05/06/2021 (post- day 7). Please note that any additional orders needed or changes will need to be obtained from: [facility] OBGYN Department, [place] patient's PCP: MD [address] [place] [address] All A agencies which cover the area of patient's residence have been reviewed, either verbally preethi writing, and patient/family have chosen the home health care agency noted. Questions: Agency name and contact information: [facility] Patient location post discharge: home What services are requested: Registered Nurse Start date: Responsible MD post discharge contact info: [facility] OBGYN Department, Discharge References/Attachments None documented in this encounter Discharge Instructions * Discharge Instructions* Diana Moulton RN - 05/04/2021 3:34 PM EST Images from the original note were not included. Nursing Inpatient Progress C - Section Follow-up Follow-up: ? 2 week and 6 week visit will be scheduled with your primary OB provider ? 6 week visit will be scheduled with your primary OB provider ? please call to schedule your 6 week visit with your primary OB provider Maternal Discharge Instructions Rest: Although it may seem impossible to get enough rest, simple planning will help. Plan to rest and/or sleep when your baby does. Limiting visitors also helps. Other family members can help by doing housework, caring for other children and/or helping limit visitors. Activity: After delivery, it is safe to climb stairs at home and gradually increase your activity level. Do not drive for two weeks or while taking narcotic pain medicine as your reaction time may be decreased. Do not lift more than 15 pounds for 6 weeks and no swimming until the vaginal bleeding stops. Nutrition: Your diet following the of your baby is as important as it was before the baby wasborn. Drinking a minimum of 6-8 glasses of water a day will help keep you hydrated. Continue takingyour vitamins until you are no longer . Continue taking stool softeners as recommended by the doctor. Do not attempt to lose weight during the first six weeks. Sweating. Hormonal changes following delivery frequently cause night sweats which are normal over the next 6 weeks. Sleeping on towels and using a fan may make you more comfortable. Incision: Wash the incision with soap and water and pat dry. It is normal to have clear or pinkish fluid seep from the incision. Gauze pads or sanitary napkins may help to keep the incision dry if itis located in a fold under your tummy. After 7-10 days remove any steri-strips which may still be over your incision. If the incision has more redness, yellow drainage, or becomes more painful, contact the obstetrics clinic. Lochia: (Flow) Your flow should be no heavier than a normal period. It will be bright red and then transition to pink, brown, yellow, and finally colorless. This may last a few weeks. If your vaginalbleeding becomes bright red again, decrease your activity. We recommend pelvic rest until your bleeding and spotting stops. This may take up to six weeks. Pelvic rest includes activities such as douching, use of tampons/menstrual cups or sexual intercourse. Bladder: For the next 2 weeks, empty your bladder every 2 hours while awake and at least every 4 hours at night. Perineum: For about a week continue to rinse yourself with warm water when you use the toilet. A sitz bath with Epsom salt taken 2 times a day and use of witch luc may help relieve soreness. Kegel exercise, done regularly throughout the day, will help tighten the perineal muscles and speed recovery. Breast Care for Formula feeding mothers: Wear a well-fitting bra to support your breasts. Ice packsto your breasts (10 minutes at a time) as well as alternating Tylenol and Ibuprofen may be used to relieve discomfort from engorgement. Avoid stimulating your breasts: Do not let warm water from the shower fall directly on your breast;do not express any colostrum; avoid holding your baby near your breasts until your milk begins to decrease and engorgement is relieved. Breast Care for mothers: Practice careful positioning and frequent feeding as demonstrated in the hospital. The printed information in your packet covers this in detail. For More Information: https://www.acog.org/Patients or refer to [employer]COG's Your and Childbirth: Month to Month book which you may have received from the OB Clinic. Vaccination: If you received the Measles, Mumps, and Rubella (MMR) vaccine, varicella vaccine, or Hepatitis A vaccine during your hospitalization make sure to discuss this with your OB provider or your PCP at your next visit. You may need a second dose of the vaccine to receive effective vaccine protection. Medications: Please take your medication exactly as prescribed. Read all instructions that come with your medication. Using narcotic pain medication (such as oxycodone, hydromorphone (Dilaudid), morphine, fentanyl, ortramadol) may cause addiction. While addiction is more common in people with a personal or family history of addiction, it can occur in anyone. Taking more than the prescribed amount of medication or using with alcohol or other drugs can causeyou to stop breathing resulting in coma, brain damage, or . Opioids (oxycodone, hydromorphone/Dilaudid, morphine, fentanyl, tramadol) can slow reaction time, cause drowsiness, or cloud judgement. It is unsafe for you to drive or operate heavy machinery while taking this medication. Opioids (oxycodone, hydromorphone/Dilaudid, morphine, fentanyl, tramadol) are at risk of being diverted by anyone with access to your home. Opioids should be stored in a safe and secure place, such as a locked cabinet or MoPowered. Unused opioids (oxycodone, hydromorphone/Dilaudid, morphine, fentanyl, tramadol) should be disposedof according to the label or patient information. If there are no specific instructions, medications may be returned to a take-back location or mixed with a small amount of water and an undesirable waste substance such as coffee grounds or cat litter. If you were taking opioids like heroin, methadone, Percocet and buprenorphine during and you stopped for any period of time, you are now more sensitive to this drug. That means that your old dose will be too strong, and you will be at risk for overdose if you take it. As we all are aware, opioid use is a concern in [place] and [place]. We recommend that families with any member at risk for overdose have a prescription for naloxone to reverse an overdose. Your providers would be happy to give you one. Call your doctor or blade filer for: Seizure (call 911) Headache which isn't relieved with Tylenol Headache with visual changes Pain in your chest Shortness of breath Pain in upper right abdomen Fever more than 100.4 F Breast with hot, hard, tender areas plus flu-like symptoms including muscle aches and feeling unwell all over Increased abdominal pain, nausea, shaking chills Increased redness or soreness over your incision/ incision isn't healing Heavy bleeding that saturates a pad an hour Clots larger than an egg Red or swollen leg which is painful or warm to the touch Feeling of bladder fullness or pain Unable to urinate when feeling the urge Pain or bleeding with urination Urinary leakage without coughing or sneezing Urinary urgency or increased frequency depression occurs in a large percentage of women. It often occurs after two weeks and can last weeks or months. This is different than ??? blues?? which can occur during the first few days after you deliver. https://www.acog.org/Patients/FAQs/-Depression We encourage you to contact your provider or a member of the nursing staff if you are feeling so overwhelmed that you are unable to care for yourself or your baby. Keep your follow up appointment. You may call the [facility] at any time for guidance or for answers to questions that come up prior to you follow up appointment. Your [place] Provider can be reached during office hours at [facility] AFTER OFFICE HOURS for the campus interviews intern or blade filer front load trash truck driver Provider electronic signature confirms that discharge instructions were reviewed with the patient. A copy was printed and given to the patient. documented in this encounter Medications at Time [...] 30 tablet 2 05/04/2021 vitamin 27 & [id number] 60 mg iron-1 mg Tablet Take 1 [...] Progress Notes * Diana Moulton RN - 05/04/2021 5:29 PM EST Pt VSS. FF and bleeding WNL. Incision WNL, slightly edematous. Pain controlled w prn pain meds. Pt up ad mindy to ICN and urinating adequately. Pt went to cardio and heart monitor was placed. Reviewed AVS and DC paperwork w pt. Pt verbalized understanding of information. Pt to triage on Friday for BP check. * Mora Coto RN - 05/04/2021 2:05 PM EST OFFICE OF CARE MANAGEMENT/electric power superintendent Per OB team, patient will be discharged today and she said she will back to see her baby in the [facility] Saturday 05/06, so she'll get her BP check here and not with VNA. [facility] notified. Mora Coto RN Case Manager [facility] and covering for Pedi/PICU/ICN [phone] Pager [phone] * Juan F García MD - 05/04/2021 6:18 AM EST Delivery Note Patient ID: Edwar Dominguez is a 46 y.o. POD #5 after Primary Delivery at 34w1d for malpresentation during active labor. Delivery uncomplicated. Her hospital course was complicated by antepartum admission for 4 days prior to delivery for preeclampsia with severe features superimposed on cHTN. She also has CKD, ulcerative colitis, cHTN, and h/o sinus bradycardia during a back surgeryin 2008. S: Edwar is feeling well this AM. Pain: well controlled with oral medications, tylenol and ibuprofen are effective. Diet: tolerating regular diet without n/v Ambulating: with assistance Voiding: independently Bowel function: passed gas Lochia: minimal O: Last value Range last 24 hrs Temperature Temp: 36.7 ??C (98.1 ??F) Temp: [36.7 ??C (98.1 ??F)] Heart Rate Heart Rate: 88 Heart Rate: [82-88] Blood Pressure BP: 134/86 BP: (116-150)/(70-86) Respiratory Rate Resp: 16 Resp: -- SpO2 SpO2: 99 % SpO2: [99 %] Intake/Output Summary (Last 24 hours) at 05/04/2021 1357 Last data filed at 05/04/2021 0701 Gross per 24 hour Intake 900 ml Output 4300 ml Net -3400 ml Exam: Gen: NAD Cardiac: RRR, no m/r/g Pulmonary: CTAB, nl respiratory effort Abdomen: soft, NT/ND, no rebound or guarding, fundus firm Incision/Dressing: clean/dry/intact, well approximated with Dermabond over subcuticular closure, noerythema/exudate Extremities: nontender, 2+ equal edema. Labs: Recent Labs 05/02/21 0435 WBC 11.5* HGB 8.2* HCT 24.8* PLATELET 231 AST 20 CREATININE 0.70 Assessment: Edwar Dominguez is a 46 y.o. s/p CS, POD#5, doing well this morning. Plan: General Care ?? Pt meeting appropriate post op milestones. Continue routine post op care. ?? Hgb 8.8 s/p EBL 1740mL. Pt asymptomatic for acute blood loss anemia. IV venofer administered 05/01. Start oral iron supplementation on discharge. ?? VTE prophylaxis: SCDs, Lovenox ?? Immunization needs: n/a ?? /pumping ?? Contraception plan: s/p bilateral salpingectomy Other Maternal Concerns ?? Sinus bradycardia episode in OR. [facility] consult to cardiology - they did not feel specific workup was necessary, but advised that the most conservative option would be to discharge with Ziopatchmonitoring. Patient is amenable to this plan. ?? CKD: at baseline, no issues ?? CHTN: restarted labetalol 200 mg BID --> 400mg BID--> 3 doses of 20mg IV labetalol -->400mg TID --> 600mg TID, with 30mg nifedipine. Plan to discharge on 600mg TID of labetalol and 30mg nifedipine. ?? BP: (116-134)/(70-86) over past 12 hrs. ?? UC: continue home meds ?? Superimposed preeclampsia: will need BP check on day on #7. She will return to the BP on Saturday 05/06. ?? Anticipate discharge today on POD#5. This patient was seen and discussed on rounds. Yusra Calabrese MD, PGY-1 05/04/2021 1:57 PM ?? I have seen and examined the patient, providing gutierrez components as outlined below. I have reviewed the resident???s above note; my evaluation of the patient is below: ?? PPD#5 CS BTL, pain controlled. Lochia light. Tolerating diet. Ambulating. Voiding AF BP: 134/86 BP: (116-150)/(70-86) NAD Abdomen soft, appropriately tender Ext NT Incision CDI ?? I/R POD#5 CS BTL CHTN preeclampsia stable, no persistent severe range HTN, s/p magnesium, repeat labs. Started antihypertensive. Will need BP check PPD#3 and 7. Acute blood loss nemia offer IV iron Sinus bradycardia in OR will arrange further monitoring given h/o syncope ?? JUAN F GARCÍA MD * Juan F García MD - 05/03/2021 6:38 AM EST Delivery Note Patient ID: Edwar Dominguez is a 46 y.o. POD #4 after Primary Delivery at 34w1d for malpresentation during active labor. Delivery uncomplicated. Her hospital course was complicated by antepartum admission for 4 days prior to delivery for preeclampsia with severe features superimposed on cHTN. She also has CKD, ulcerative colitis, cHTN, and h/o sinus bradycardia during a back surgeryin 2008. S: Edwar is feeling well this AM. She got much better sleep last night. Also feels her legs are less swollen. Pain: well controlled with oral medications, pain is 2.5/10. Tylenol and ibuprofen are effective. Diet: tolerating regular diet without n/v Ambulating: with assistance Voiding: independently Bowel function: passed gas Lochia: minimal O: Last value Range last 24 hrs Temperature Temp: 36.8 ??C (98.2 ??F) Temp: [36.7 ??C (98.1 ??F)-36.8 ??C (98.2 ??F)] Heart Rate Heart Rate: 93 Heart Rate: [82-94] Blood Pressure BP: 130/78 BP: (129-170)/(67-85) Respiratory Rate Resp: 16 Resp: [16-18] SpO2 SpO2: 98 % SpO2: [96 %-100 %] Intake/Output Summary (Last 24 hours) at 05/03/2021 0821 Last data filed at 05/02/2021 2102 Gross per 24 hour Intake 2621 ml Output 2200 ml Net 421 ml Exam: Gen: NAD Cardiac: RRR, no m/r/g Pulmonary: CTAB, nl respiratory effort Abdomen: soft, NT/ND, no rebound or guarding, fundus firm Incision/Dressing: clean/dry/intact, well approximated with Dermabond over subcuticular closure, noerythema/exudate Extremities: nontender, 2+ equal edema. Labs: Recent Labs 05/02/21 0435 05/01/21 0315 WBC 11.5* 14.0* HGB 8.2* 8.5* HCT 24.8* 25.0* PLATELET 231 229 AST 20 18 CREATININE 0.70 0.76 Assessment: Edwar Dominguez is a 46 y.o. s/p CS, POD#4, doing well this morning. Plan: General Care ?? Pt meeting appropriate post op milestones. Continue routine post op care. ?? Hgb 8.8 s/p EBL 1740mL. Pt asymptomatic for acute blood loss anemia. IV venofer administered 3. Start oral iron supplementation on discharge. ?? VTE prophylaxis: SCDs, Lovenox ?? Immunization needs: n/a ?? /pumping ?? Contraception plan: s/p bilateral salpingectomy Other Maternal Concerns ?? Sinus bradycardia episode in OR. [facility] consult to cardiology - they did not feel specific workup was necessary, but advised that the most conservative option would be to discharge with Ziopatchmonitoring. Patient is amenable to this plan. ?? CKD: at baseline, no issues ?? CHTN: restarted labetalol 200 mg BID --> 400mg BID--> 3 doses of 20mg IV labetalol -->400mg TID --> 600mg TID, with 30mg nifedipine. First dose of nifedipine at 5am 05/03. ?? BP: (130-170)/(72-85) over past 12 hrs. ?? UC: continue home meds ?? Superimposed preeclampsia: will need BP check on pp day on #7. ?? Anticipate discharge on POD#5 if blood pressure is controlled on new labetalol and nifedipine regimen This patient was seen and discussed on rounds. Yusra Calabrese MD, PGY-1 05/03/2021 8:21 AM I have seen and examined the patient, providing gutierrez components as outlined below. I have reviewed the resident???s above note; my evaluation of the patient is below: PPD#4 CS BTL, pain controlled. Lochia light. Tolerating diet. Ambulating. Voiding AF BP: 130/78 BP: (129-170)/(67-85) NAD Abdomen soft, appropriately tender Ext NT Incision CDI I/R POD#4 CS BTL CHTN preeclampsia stable, persistent severe range HTN, s/p magnesium, repeat labs. Started antihypertensive. Will need BP check PPD#3 and 7. Acute blood loss nemia offer IV iron Sinus bradycardia in OR will arrange further monitoring given h/o syncope JUAN F GARCÍA MD * Debo Maynard RN - 05/02/2021 9:41 PM EST Eric Tapia and Jair king and are consulting pharmacy regarding hydralazine treatment 05/02/210 Adult Vital Signs BP 170/79 * Bere Darling - 05/02/2021 2:12 PM EST Nutrition Services Note - Low Nutrition Acuity Edwar Dominguez is a 46 y.o. female Reason for intervention: hospital day 9 Nutrition Plan: Continue current diet. Encourage good PO intake. vitamin noted. Support and encouragement provided. Patient screened for hospital length of stay. Patient seen in room for a nutrition visit. Patient reports that she eats most of the food that she receives. PO intake 75%-100%. Patient also receives snacks 3x/day which she wishes to continue. Patient had no other nutrition questions at this time. Nutrition services to continue to monitor and follow up. Active Orders Diet Regular diet Frequency: Effective Now Number of Occurrences: Until Specified Admit Weight: 96.62 kg Estimated body mass index is 37.5 kg/m?? as calculated from the following: Height as of this encounter: 157.5 cm (5' 2). Weight as of this encounter: 93 kg (205 lb 0.4 oz). Wt Readings from Last 5 Encounters: 04/30/21 93 kg (205 lb 0.4 oz) 02/06/21 94 kg (207 lb 3.2 oz) 11/16/20 88 kg (194 lb) Weight loss: not clinically significant Appetite: Excellent (75%-100%) Food allergies:no known food allergies Chewing/Swallowing difficulty: none Nausea/Vomiting: no nausea and no vomiting Patient education / questions: all nutrition related questions answered at this time Nutrition services to follow weekly through hospital course unless consulted in the interim. Bere Darling, AVA [phone] * Mora Levine RN - 05/02/2021 12:58 PM EST Per Resident MD, patient will not be discharging today. RNCM has made VNA referral and pended VNA orders, as patient had previously accepted VNA services per previous RNCM documentation. RNCM called [facility] PHONE: [phone] FAX: [phone] VNA anticipates being able to start care within 24- 48 hours of discharge, as well as the ability to do post- day 7 blood pressure check on Friday05/06/2021. * Mora Levine RN - 05/02/2021 12:33 PM EST DOCUMENTATION FOR VNA SERVICES (INCLUDING THOSE PATIENTS WITH MEDICARE COVERAGE REQUIRING HOME VNA SERVICES AND/OR HOSPICE SERVICES) PATIENT'S LOCATION: Edwar Dominguez [address] [place] [phone] (home) Telephone Information: MEDICAID [place] Plan: MEDICAID [place] Member: [id number] Effective from: 09/19/2020 Subscriber: EDWAR DOMINGUEZ Guarantor: EDWAR DOMINGUEZ ?? In discussion with the attending physician, it is certified that this patient is under their care and that they, or a Nurse Practitioner,Clinical Nurse specialist or Physician Trolley Cleaner who is working directly with them, had a face to face encounter that meets the physician face to face encounter requirements with this patient on 05/02/2021 ?? The encounter with the patient was in whole, or in part, for the following medical condition, which is the primary reason for home health care services: post- from delivery of a at 34 weeks gestation. Preeclampsia with severe features superimposed on cHTN. She alsohas CKD, ulcerative colitis, cHTN. H/o cardiac arrhythmia Patient Active Problem List Diagnosis Code ??? Acne vulgaris L70.0 ??? AMA (advanced maternal age) multigravida 35+ O09.529 ??? Hypertension I10 ??? Ulcerative colitis K51.90 ??? History of premature rupture of membranes (PROM) in previous , currently , first trimester O09.291 ??? CKD (chronic kidney disease) stage 3, GFR 30-59 ml/min N18.30 ??? Preeclampsia, severe O14.10 ??? BMI 36.0-36.9,adult Z68.36 ??? Depression F32.A ??? History of cardiac arrhythmia Z86.79 ??? Spontaneous O03.9 ?? In discussion with the provider, it is certified that, based on their findings, the following services are medically necessary for home health services. ?? To provide the following care/treatments with the clinical findings supporting the need for services as follows: HOME CARE ORDERS: HOME HEALTH AGENCY: [facility] Induction Manager. PHONE: [phone] FAX: [phone] RN orders: 1. Assess /postoperative recovery. 2. Assess full set of vital signs, including blood pressure. Please contact [facility] OB-GRAVITY PROSPECTING SUPERVISOR for blood pressure greater than mmHG/mmHG. Need blood pressure assessment/monitoring on day 7 post-. 3. Assess breast pumping 4. Assess clinical status including risk for depression. 5. Provide anticipatory guidance for maternal post period and assist with connecting to appropriate community resources. Start of care within 24-96 hours post discharge. Will need blood pressure check on Friday05/06/2021 (post- day 7). Please note that any additional orders needed or changes will need to be obtained from: [facility] OBGYN Department, [place] patient's PCP: MD [address] [place] [address] All VNA agencies which cover the area of patient's residence have been reviewed, either verbally preethi writing, and patient/family have chosen the home health care agency noted. * Susana Murillo RN - 05/02/2021 9:40 AM EST Irregular HR was noted on auscultation by this RN. Stat EKG ordered while pt in ICN. When in ICN, asked to return to room for EKG, pt reported hx of arrhythmia since age 13. Pt requested to stay in ICN at this time. MD Calabrese agreeable for pt to have ICN rounds before returning to room for EKG, aspt is asymptomatic. * Yusra Calabrese MD - 05/02/2021 6:49 AM EST Delivery Note Patient ID: Edwar Dominguez is a 46 y.o. POD #3 after Primary Delivery at 34w1d for malpresentation during active labor. Delivery uncomplicated. Her hospital course was complicated by antepartum admission for 4 days prior to delivery for preeclampsia with severe features superimposed on cHTN. She also has CKD, ulcerative colitis, cHTN, and h/o sinus bradycardia during a back surgeryin 2008. S: Edwar is feeling well this AM. She didn't sleep well because she couldn't get comfortable. Pain: well controlled with oral medications, pain is largely a 4-5/10. Tylenol and ibuprofen are effective. Diet: tolerating regular diet without n/v Ambulating: with assistance Voiding: independently Bowel function: passed gas Lochia: minimal O: Last value Range last 24 hrs Temperature Temp: 37 ??C (98.6 ??F) Temp: [36.7 ??C (98.1 ??F)-37 ??C (98.6 ??F)] Heart Rate Heart Rate: 79 Heart Rate: [69-97] Blood Pressure BP: 159/83 BP: (127-167)/(61-92) Respiratory Rate Resp: 18 Resp: [16-20] SpO2 SpO2: 97 % SpO2: [96 %-100 %] Intake/Output Summary (Last 24 hours) at 05/02/2021 0649 Last data filed at 05/02/2021 0427 Gross per 24 hour Intake 3418 ml Output 1900 ml Net 1518 ml Exam: Gen: NAD Cardiac: RRR Pulmonary: CTAB, nl respiratory effort Abdomen: soft, NT/ND, no rebound or guarding, fundus firm Incision/Dressing: clean/dry/intact, well approximated with Dermabond over subcuticular closure, noerythema/exudate Extremities: nontender, 2+ equal edema. Labs: Recent Labs 05/02/21 0435 05/01/21 0315 04/30/21 0510 04/29/21 1408 04/29/21 0850 WBC 11.5* 14.0* 14.3* < > 14.2* HGB 8.2* 8.5* 8.8* < > 11.5* HCT 24.8* 25.0* 25.8* < > 34.3* PLATELET 231 229 226 < > 297 AST 20 18 24 -- 21 ALT -- -- -- -- 28 CREATININE 0.70 0.76 0.78 -- 0.68* < > = values in this interval not displayed. Assessment: Edwar Dominguez is a 46 y.o. s/p CS, POD#3, doing well this morning. Plan: General Care ?? Pt meeting appropriate post op milestones. Continue routine post op care. ?? Hgb 8.8 s/p EBL 1740mL. Pt asymptomatic for acute blood loss anemia. IV venofer administered yesterday. Start oral iron supplementation on discharge. ?? VTE prophylaxis: SCDs, Lovenox ?? Immunization needs: n/a ?? /pumping ?? Contraception plan: s/p bilateral salpingectomy Other Maternal Concerns ?? Sinus bradycardia episode in OR. Curbside consult to cardiology - they did not feel specific workup was necessary, but advised that the most conservative option would be to discharge with Ziopatchmonitoring. Patient is amenable to this plan. ?? CKD: at baseline, no issues ?? CHTN: restarted labetalol 200 mg BID --> increased to 400mg BID. Had 3 doses of 20mg IV labetalol overnight for SR-Bps. Labetalol increased to 400mg TID. Plan to monitor Bps today. ?? BP: (129-174)/(67-94) over past 12 hrs ?? UC: continue home meds ?? Superimposed preeclampsia: will need BP check on pp day on #7. ?? Anticipate discharge on POD#4 if blood pressure is controlled on new labetalol regimen This patient was seen and discussed on rounds. Yusra R Bharati, MD, PGY-1 05/02/2021 6:49 AM Associated attestation - Gus Parikh MD - 05/02/2021 4:51 PM EST Patient seen, chart reviewed, discussed with team and agree with resident note. Doing well. Continue titration of antihypertensive meds. May be ready for discharge tomorrow. MD Chris * Ebla León RN - 05/01/2021 7:01 PM EST VSS, please see flowsheet. Assessment as documented. Visiting baby in ICN throughout day. Pumping and storing EBM. OOB independently. Pain controlled with Ibuprofen and Tylenol. Patient declined one sched dose of Tylenol today stating that her pain was minimal without movement. Will cont to monitorand follow POC. * Juan F García MD - 05/01/2021 7:14 AM EST Delivery Note Patient ID: Edwar Dominguez is a 46 y.o. POD #2 after Primary Delivery at 34w1d for malpresentation during active labor. Delivery uncomplicated. Her hospital course was complicated by antepartum admission for 4 days prior to delivery for preeclampsia with severe features superimposed on cHTN. She also has CKD, ulcerative colitis, cHTN, and h/o sinus bradycardia during a back surgeryin 2008. S: Edwar is feeling well this AM. She didn't sleep well because she couldn't get comfortable. Pain: well controlled with oral medications, pain is largely a 4-5/10. Tylenol and ibuprofen are effective. Diet: tolerating regular diet without n/v Ambulating: with assistance Voiding: independently Bowel function: passed gas Lochia: minimal O: Last value Range last 24 hrs Temperature Temp: 36.7 ??C (98.1 ??F) Temp: [36.6 ??C (97.9 ??F)-36.8 ??C (98.2 ??F)] Heart Rate Heart Rate: 86 Heart Rate: [75-95] Blood Pressure BP: 149/74 BP: (141-165)/(65-93) Respiratory Rate Resp: 16 Resp: [16-18] SpO2 SpO2: 98 % SpO2: [97 %-99 %] Intake/Output Summary (Last 24 hours) at 05/01/2021 0828 Last data filed at 05/01/2021 0547 Gross per 24 hour Intake 2690 ml Output 5075 ml Net -2385 ml Exam: Gen: NAD Cardiac: RRR Pulmonary: CTAB, nl respiratory effort Abdomen: soft, NT/ND, no rebound or guarding, fundus firm Incision/Dressing: clean/dry/intact, well approximated with Dermabond over subcuticular closure, noerythema/exudate Extremities: nontender, 2+ equal edema. Labs: Recent Labs 05/01/21 0315 04/30/21 0510 04/29/21 1408 04/29/21 0850 04/28/21 2130 04/28/21 1040 WBC 14.0* 14.3* 18.7* 14.2* 11.7* 10.5* HGB 8.5* 8.8* 10.2* 11.5* 11.1* 10.8* HCT 25.0* 25.8* 30.2* 34.3* 32.8* 31.6* PLATELET 229 226 268 297 331 278 AST 18 24 -- 21 25 23 ALT -- -- -- 28 29 27 CREATININE 0.76 0.78 -- 0.68* 0.77 0.78 Assessment: Edwar Dominguez is a 46 y.o. s/p CS, POD#2, doing well this morning. Plan: General Care ?? Pt meeting appropriate post op milestones. Continue routine post op care. ?? Hgb 8.8 s/p EBL 1740mL. Pt asymptomatic for acute blood loss anemia. IV venofer ordered yesterday, not administered. Plan for 300 mg IV Venofer today, and start oral iron supplementation on discharge. Continue to monitor for signs or symptoms of worsening anemia. ?? VTE prophylaxis: SCDs, Lovenox ?? Immunization needs: n/a ?? /pumping ?? Contraception plan: s/p bilateral salpingectomy Other Maternal Concerns ?? Sinus bradycardia episode in OR. Curbside consult to cardiology - they did not feel specific workup was necessary, but advised that the most conservative option would be to discharge with Ziopatchmonitoring. ?? CKD: at baseline, no issues ?? CHTN: restarted labetalol 200 mg BID now that BP has started increasing. Had doses at 2048 last night and 0824. Continue to monitor Bps and titrate labetalol as needed. ?? BP: (143-165)/(65-93) over past 12 hrs ?? UC: continue home meds ?? Superimposed preeclampsia: will need BP check on pp day #3 and #7 ?? Anticipate discharge on POD#3 This patient was seen and discussed on rounds. Yusra Calabrese MD, PGY-1 05/01/2021 8:28 AM I have seen and examined the patient, providing gutierrez components as outlined below. I have reviewed the resident???s above note; my evaluation of the patient is below: PPD#2 CS BTL, pain controlled. Lochia light. Tolerating diet. AF BP: 149/74 BP: (141-165)/(65-93) NAD Abdomen soft, appropriately tender Ext NT Incision CDI I/R POD#2 CS BTL CHTN preeclampsia stable, no persistent severe range HTN, on magnesium, repeat labs. Will need BP check PPD#3 and 7. 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 Patient given [facility] grade rental pump number [id number] from [employer]. Rental approved by [facility]. Pump rental is covered by patient's insurance for 3 months. Patient has accepted [facility] referral. WIC referral sent (from 's chart) to add both and mother to [place]. Mora Coto RN, CM Edwar Dominguez 1975 [address] [facility] [id number] (home) Infant's : 04/29/[birth year] Insurance: [place] Pay[place] Plan Address Payor Plan Phone Number Payor Plan Fax Number Effective Dates [address] 09/19/2020 - None Entered [facility] [id number] Subscriber Name Subscriber Date Member ID EDWAR DOMINGUEZ 1975 [id number] [employer] # [phone] Symphony breast pump [id number] Length of need: 3 months 's diagnosis: Infant born at 34 weeks 1 day Purpose of Appliance: To Initiate and Maintain Medical Necessity: /Lactating Mother- Z39.1 Breast Engorgement relative to infant born at 34 weeks 1 day gestation Feeding problem of , unspecified P92.9 Premature Infant in ICN from mother P07.30 34 completed weeks P07.37 (34 weeks, 0 days, through 34weeks, 6 days) A standard breast pump will not provide sufficient milk for this baby. [facility] NPI #: [id number] DEPARTMENT [facility] HEALTH ACCESS [place] MEDICA[place] MEDICAL NECESSITY FORM (MNF) ORTHOTICS, PROSTHETICS, MEDICAL SUPPLIES & EQUIPMENT All claims for supplies and equipment require a written order. Orders must be signed by a physician, physician kindergarten instructional assistant, or nurse practitioner. All home health plans of care require a physician signature. Copies of the order must be kept in the patient record by both the ordering provider and Durable Medical Equipment (DME) supplier. It is the responsibility of the ordering provider to complete or review this Medical Necessity Form (MNF) and provide adequate documentation supporting the medical need for the items listed. The ordering provider must provide this documentation either for the Medicaid beneficiary to take to the DME supplier of choice, or directly to the DME supplier. The DME perez pplier must be enrolled in [place] Medicaid. The ordering provider must document a description of the device and/or its HCPCs code. If the ordering provider does not provide the HCPCs code, the DME supplier must provide the HCPCs code for all prior authorizations and on all claims, on this form or on other documentation submitted to the DVHA and DXC. The codes submitted to DVHA and DXC must matchthe description documented by the ordering provider. All orders must adhere to state and federal rules and regulations. [place] Medicaid Rules can be found online at [email or web address]-[email or web address]-syaqz. Section A: (must be completed or reviewed and signed by ordering provider) Beneficiary's name: Edwar Dominguez Medicaid ID#: Insurance: [place] Pay[place] Plan Address Payor Plan Phone Number Payor Plan Fax Number Effective Dates [address] 09/19/2020 - None Entered [facility] [id number] Subscriber Name Subscriber Date Member ID EDWAR DOMINGUEZ [id number] Diagnoses: Medical Necessity: /Lactating Mother- Z39.1 Breast Engorgement relative to infant born at 34 weeks 1 day gestation Feeding problem of , unspecified P92.9 Premature Infant in ICN from mother P07.30 34 completed weeks P07.37 (34 weeks, 0 days, through 34weeks, 6 days) A standard breast pump will not provide sufficient milk for this baby. Place of service: Is the beneficiary living in a snf facility? Yes [ ] No[x] Is the request part of a home health plan of care? Yes [x] No[ ] 4. HCPCs Code Description Modifier Medical Necessity of Item Expected Length of Need: 3 months E0604, Hospital Grade Breast Pump __X_ To Initiate and Maintain . A standard breast pump will not provide adequate milk supply for patient. X ___ ___ ___ ___ ___ ___ ___ ___ ___ ___ ___ ___ ___ ___ ___ ___ The HCPCS code(s) may be provided by the supplying provider when the ordering provider has includeda clear description of the required item(s). I CERTIFY THAT THE ITEM(S) PRESCRIBED ABOVE IS(ARE) A MEDICALLY NECESSARY PART OF THE COURSE OF TREATMENT AND NOT FOR CONVENIENCE, COMFORT, OR PRECAUTIONARY PURPOSES 5. Ordering provider's name & address: Please see ordering physician signature below - [facility], [address] [place] [address] 6. Ordering provider's signature: Please see order signature below. Date signed: 04/30/21. 7. Ordering provider's Medicaid provider #: [id number] Phone#: [phone] See back of form for DME information and instructions --- Section B FOR DURABLE MEDICAL EQUIPMENT AND SUPPLIES (completed by the DME supplier) 8. Date supplies/original equipment first dispensed: ____/____/ 9. Name of DME employee completing above information: 10.Signature of DME employee: Phone#: 11. Medicaid DME provider #: Claims: All DME requires an MNF to be submitted with the claim, with the exception of certain itemsthat are identified in the Provider Manual, available at: [email or web address].[email or web address]. For exceptions, an MNF must be kept on file by the DME supplier. Prior Authorization: The DME supplier must include a copy of an MNF with every Prior Authorization request. Fax the MNF and any other supporting documents to the [facility] at . Use of this [facility] Medical Necessity Form is recommended for all prior authorization requests to ensure timely processing. Medicaid may request a copy of the medical record upon audit. *INSTRUCTIONS FOR SECTIONS A & B* Section A must be completed or reviewed, signed, and dated by the ordering physician/physician kindergarten instructional assistant/nurse practitioner. Section B must be completed by the DME supplier when equipment and/or supplies are ordered. Beneficiary's first & last name, and Medicaid ID number. List all relevant diagnoses, including status diagnoses such as colostomy, tracheostomy. If this isan initial order or there have been significant clinical changes, attach documentation reflecting the provider's treatment plan. All DME ordered within a home health plan of care require a physician signature. The place of service in which the item will be used. If it is to be used in a facility, document the facility name and address. A place of service code may be used. List for each item being ordered: HCPCS code (optional for ordering provider, but then must appear on other documentation submitted to [facility] for PA and to [facility] for billing), medical necessity rationale, expected length of need (will be interpreted as months unless stated otherwise), and the number ofitems needed (for example: 2 bottles of sterile saline per month). NOTE: If the quantity ordered ismore than the number allowed (based on customary usage and as listed in the [facility] DME Restriction list, available at: [email or web address]/for-providers/armilhlr-rulouyvz-xcvefnoifq), an explanation from the physician is required. The ordering provider's name and address. The ordering provider's signature must be that of the ordering provider and attests to the validityof the information given. The date of this signature is also required. Medicaid provider number and phone number. To be completed by the DME supplier: the date that the base device was first provided. If there is no base device (for example, incontinence products), document the date the supply was first provided. The name of the DME employee completing the form. DME employee's signature and phone number. DME Medicaid provider number. Referral to [facility] requested by Edwar Jem. She has given verbal permission to electronically fax necessary demographic information for patient (mother) and infant (including name, address, phone number), current [facility] enrollment status and/or current Medicaid status. Upon receipt of the referral information, [facility] claims representative should attempt to contact parents to set up an intake plan. [facility] [id number] [phone] (M) Mother's Name: Edwar Dominguez Mother's Date of : 75 Infant's Legal Name: Paige Dominguez 's Date of : 04/29/21 Weight: 2.75kg Length: 45.5cm ?? Anticipated Discharge Date: Mother: 05/01/21; Infant: To be determined Current [facility] Status: Mother would like herself and her baby enrolled in [facility]. Have Medicaid (Yes or No)?: Yes The above information electronically routed to: [place], [facility], Attn: Jesi Velasquez RN or Alternate Intake Bulk Sealer Operator. Fax #: [phone] * Juan F García MD - 04/30/2021 8:03 AM EST Delivery Note Patient ID: Edwar Dominguez is a 46 y.o. POD #1 after Primary Delivery at 34w1d for malpresentation during active labor. Delivery uncomplicated. Her hospital course was complicated by antepartum admission for 4 days prior to delivery for preeclampsia with severe features superimposed on cHTN. She also has CKD, ulcerative colitis, cHTN, and h/o sinus bradycardia during a back surgeryin 2008. S: Edwar is feeling well this AM. Pain: well controlled with oral medications, no opioids yet Diet: tolerating regular diet without n/v, hasn't eaten much Ambulating: with assistance Voiding: oneill catheter still in place Bowel function: not yet passing flatus Lochia: minimal O: Last value Range last 24 hrs Temperature Temp: 36.9 ??C (98.4 ??F) Temp: [35.7 ??C (96.3 ??F)-37 ??C (98.6 ??F)] Heart Rate Heart Rate: 74 Heart Rate: [57-79] Blood Pressure BP: 138/80 BP: (84-166)/(49-94) Respiratory Rate Resp: 16 Resp: [16-20] SpO2 SpO2: 97 % SpO2: [93 %-100 %] Intake/Output Summary (Last 24 hours) at 04/30/2021 0803 Last data filed at 04/30/2021 0600 Gross per 24 hour Intake 6372.5 ml Output 6290 ml Net 82.5 ml Exam: Gen: NAD Cardiac: RRR Pulmonary: CTAB, nl respiratory effort Abdomen: soft, NT/ND, no rebound or guarding, fundus firm 3 cm below umbilicus Incision/Dressing: clean/dry/intact, well approximated with Dermabond over subcuticular closure, noerythema/exudate Extremities: nontender, 2+ equal edema. Labs: Recent Labs 04/30/21 0510 04/29/21 1408 04/29/21 0850 04/28/21 2130 04/28/21 1040 WBC 14.3* 18.7* 14.2* 11.7* 10.5* HGB 8.8* 10.2* 11.5* 11.1* 10.8* HCT 25.8* 30.2* 34.3* 32.8* 31.6* PLATELET 226 268 297 331 278 AST 24 -- 21 25 23 ALT -- -- 28 29 27 CREATININE 0.78 -- 0.68* 0.77 0.78 Assessment: Edwar Dominguez is a 46 y.o. s/p CS, doing well this morning. Plan: General Care ?? Pt meeting appropriate post op milestones. Continue routine post op care. ?? Hgb 8.8 s/p EBL 1740mL. Pt asymptomatic for acute blood loss anemia. Will administer 300 mg IV Venofer today, and start oral iron supplementation on discharge. Continue to monitor for signs or symptoms of worsening anemia. ?? VTE prophylaxis: SCDs, Lovenox ?? Immunization needs: n/a ?? /pumping ?? Contraception plan: s/p bilateral salpingectomy Other Maternal Concerns ?? Sinus bradycardia episode in OR. Curbside consult to cardiology - they did not feel specific workup was necessary, but advised that the most conservative option would be to discharge with Ziopatchmonitoring. ?? CKD: at baseline, no issues ?? CHTN: restarted labetalol 200 mg BID now that BP has started increasing ?? UC: continue home meds ?? Superimposed preeclampsia: will need BP check on pp day 3 and 7 ?? Anticipate discharge on POD#3 This patient was seen and discussed on rounds. Mandie Aguilera MD, PGY-3 04/30/2021 8:03 AM I have seen and examined the patient, providing gutierrez components as outlined below. I have reviewed the resident???s above note; my evaluation of the patient is below: PPD#1 CS BTL, pain controlled. Lochia light. Tolerating diet. AF BP: 138/80 BP: (84-166)/(49-94) NAD Abdomen soft, appropriately tender Ext NT Incision CDI I/R POD#1 CS BTL CHTN preeclampsia stable, no persistent severe range HTN, on magnesium, repeat labs. Will need BP check PPD#3 and 7. Acute blood loss nemia offer IV iron Sinus bradycardia in OR will arrange further monitoring given h/o syncope JUAN F GARCÍA MD * Mandie Aguilera - 04/29/2021 8:34 AM EST Called to check patient due to increased pressure. Having very painful contractions and pelvic pressure. Bedside ultrasound shows fetus has flipped back to transverse with head to maternal left. SVE: 5100/no presenting part Plan for emergent delivery due to progressive labor and non-cephalic presentation. 2g Ancef, 500 mg azithromycin Contacting anesthesia and ICN. She is already consented including desire for bilateral salpingectomy. Move to OR as soon as possible Mandie Aguilera MD, PGY-3 04/29/2021 8:37 AM Associated attestation - Kilo Dodge MD - 04/29/2021 12:10 PM EST I have personally reviewed this patients heart tracing and progress in labor and agree with the documentation above. Kilo Dodge MD 04/29/21 .now * Mandie Aguilera - 04/29/2021 7:01 AM EST Labor Progress Note PtID: Edwar Dominguez??is a 46 y.o.?? at??34w0d??gestation (by 11 week US) admitted as a transfer from [facility]??for preeclampsia with severe features??superimposed on cHTN, now HD#6, s/p successful ECV on 04/28/21, now undergoing IOL. Subjective: Contractions more intense, still doing well without analgesia, originally thinking of epidural, butfeels fine without now (did not have epidural for last labors). Objective: Temp: 36.8 ??C (98.2 ??F) 24 hr Temp: [36.5 ??C (97.7 ??F)-36.8 ??C (98.2 ??F)] Heart Rate: 85 24 hr Heart Rate: [75-98] BP: (!) 149/95 24 hr BP: (141-158)/(80-100) Cervix Exam: Dilation: 4 (04/29/21 06) Effacement: 50 Station: -2 Cervical Position: Posterior Consistency: Medium Mora Score: 2 OB Examiner: Mandie Aguilera Heart Rate Interpretation: HR Assessment Method: external (04/29/21629) HR (beats/min): 130 HR Variability: moderate (amplitude range 6 to 25 bpm) HR Accelerations: present HR Decelerations: absent Contraction Frequency (Minutes): 2-6 Nonstress Test Interpretation: Reactive, >32 weeks: two 15 bpm accelerations lasting 15 seconds Overall Impression: Reassuring for gestational age Comments: start 1124 end 1157 GBS Lab Results Component Value Date GBSSCREEN Pos 04/24/2021 Assessment & Plan This is Edwar Dominguez who is at 34w1d. Labor Assessment: in early latent labor ?? Labor Plans: Making cervical change Re-confirmed cephalic at 0700. Recommend AROM for augmentation next. With mild poly and transverse lie, consider performing with FSE and fundal pressure ?? GBS Management:: positive, on Penicillin ?? Hemorrhage Risk: High, 2IVs, active T&S ?? PP contraception: BS if c/s or PP tubal if ; if not feasible, 6 week tubal Additional Issues ?? Pre-E with SF superimposed on cHTN, and CKD, qualified by needing BP treatment (5, 10mg IV Hydralazine at OSH). UPCR 0.1 at [facility]. ?? On 200 labetalol BID ?? Discussed recommendation for delivery at 34-35 weeks in the setting of preeclampsia with severe features. Patient desires ECV and IOL and if unsuccessful, desired PCS. ECV successful 04/28/21. ?? On MgSO4 for seizure ppx ?? Q4hr BP checks ?? gestation ?? Beta complete 3 ?? CKD: last creatinine 0.7.??Previously as high as 1.13.? Labs: creatinine, electrolytes, Cr 0.73, GFR 99 ?? Avoid nephrotoxic agents ?? GDM? Continue fasting and postprandial glucose checks ?? Increased nighttime NPH to 8u on 04/26, halved to 4u on 04/28 ?? Sensitive SSI ordered for correctional. Keep 1 hour postprandial BG<140 ?? Transition to q4hr checks with onset of labor, to q2hr when in active labor ?? Hyponatremia ?? 130 on admission, in setting of mild hyperglycemia or SIADH related to preeclampsia with severe features ?? Downtrended to leslie of 124 of 04/25, improved after discontinuation of IV fluids ?? Q12H CMP ?? LOC on HD#1. Likely syncopal/vasovagal episode secondary to rapid changes in BP, though cant rule out that this was a seizure. Pt with hx of cardiac arrhythmia [facility]. ?? 130 ECG as baseline 04/25 showed NSR with an age indeterminate anterior infarct ?? Echocardiogram performed 04/26 showed normal valves, trace MR, and LVEF 67% ?? Records reviewed in [facility]'s EMR by Dr. Newman. ?? Anesthesia aware of this history, discussed this was likely in the setting of vagal stimulation. Discussed w/ Dr. Dodge OBGYN Attending. Mandie Aguilera MD PGY-3 04/29/2021 Associated attestation - Kilo Dodge MD - 04/29/2021 12:09 PM EST I have personally reviewed this patients heart tracing and progress in labor and agree with the documentation above. Kilo Dodge MD 04/29/21 .now * Yusra Calabrese MD - 04/28/2021 6:38 PM EST Labor Progress Note PtID: Edwar Dominguez??is a 46 y.o.?? at??34w0d??gestation (by 11 week US) admitted as a transfer from [facility]??for preeclampsia with severe features??superimposed on cHTN, now HD#5, s/p successful ECV today 04/28/21, beginning IOL. Subjective: Edwar is doing well. She has a bag of LR under her belly band to try to help keep the baby in cephalic position. Objective: Temp: 36.8 ??C (98.2 ??F) 24 hr Temp: [36.5 ??C (97.7 ??F)-36.8 ??C (98.2 ??F)] Heart Rate: 90 24 hr Heart Rate: [79-93] BP: 158/88 24 hr BP: (141-158)/(80-91) Cervix Exam: Dilation: 1 (04/28/21 1510) Effacement: 30 Station: -5 Cervical Position: Posterior Consistency: Medium Mora Score: 2 OB Examiner: Yusra Calabrese Heart Rate Interpretation: HR Assessment Method: external (04/28/21 1700) HR (beats/min): 145 HR Variability: moderate (amplitude range 6 to 25 bpm) HR Accelerations: present HR Decelerations: absent Contraction Frequency (Minutes): 2-6 Nonstress Test Interpretation: Reactive, >32 weeks: two 15 bpm accelerations lasting 15 seconds Overall Impression: Reassuring for gestational age Comments: start 1124 end 1157 GBS Lab Results Component Value Date GBSSCREEN Pos 04/24/2021 Assessment & Plan This is Edwar Dominguez who is at 34w0d. Labor Assessment: not in labor. ?? Labor Plans: Mora score of 2. Begin IOL with oneill and low dose pitocin. Re-confirmed cephalicand oneill placed at 17:02. Pitocin on at 17:30. ?? GBS Management:: positive, on Penicillin ?? Hemorrhage Risk: High, 2IVs, active T&S ?? PP contraception: BS if c/s or PP tubal if ; if not feasible, 6 week tubal Additional Issues ?? Pre-E with SF superimposed on cHTN, and CKD, qualified by needing BP treatment (5, 10mg IV Hydralazine at OSH). UPCR 0.1 at [facility]. ?? On 200 labetalol BID ?? Discussed recommendation for delivery at 34-35 weeks in the setting of preeclampsia with severe features. Patient desires ECV and IOL and if unsuccessful, desired PCS. ECV successful 04/28/21. ?? On MgSO4 for seizure ppx ?? Q4hr BP checks ?? gestation ?? Beta complete 04/25 ?? CKD: last creatinine 0.7.??Previously as high as 1.13.? Labs: creatinine, electrolytes, Cr 0.73, GFR 99 ?? Avoid nephrotoxic agents ?? GDM? Continue fasting and postprandial glucose checks ?? Increased nighttime NPH to 8u on 04/26, halved to 4u on 04/28 ?? Sensitive SSI ordered for correctional. Keep 1 hour postprandial BG<140 ?? Transition to q4hr checks with onset of labor, to q2hr when in active labor ?? Hyponatremia ?? 130 on admission, in setting of mild hyperglycemia or SIADH related to preeclampsia with severe features ?? Downtrended to leslie of 124 of 04/25, improved after discontinuation of IV fluids ?? Q12H CMP ?? LOc on HD#1. Likely syncopal/vasovagal episode secondary to rapid changes in BP, though cant rule out that this was a seizure. Pt with hx of cardiac arrhythmia [facility]. ?? 130 ECG as baseline 04/25 showed NSR with an age indeterminate anterior infarct ?? Echocardiogram performed 04/26 showed normal valves, trace MR, and LVEF 67% ?? Records reviewed in [facility]'s EMR by Dr. Newman. ?? Anesthesia aware of this history, discussed this was likely in the setting of vagal stimulation. Discussed w/ LEIGH Cassidy Attending. Yusra Calabrese MD PGY-1 04/28/2021 * Bess Gates - 04/28/2021 4:22 PM EST External Cephalic Version Date Performed: 04/28/2021 Patient Name: Edwar Dominguez Provider: Larisa Newman MD Indication: Malpresentation Gestational Age: 34w0d RH status: ABORh Type Date Value Ref Range Status 04/25/2021 O Pos Final Pre-procedure NST: Baseline Rate: 145/moderate/+accels/no decels Contractions: q3-5min Other observations: none Interpretation: reactive Pre-procedure Ultrasound: Presentation: complete breech, back to maternal left Placenta location: anterior Amniotic fluid volume: NEREIDA 25 Procedure: Anesthesia informed of the planned procedure. IV access in place x2. Planned procedure was discussed with the patient. Risks and benefits of the procedure were discussed including but not limited to discomfort, risk of distress and possible section, failed version, and consent form was then completed. Details of Procedure: Terbutaline 250mcg was administered sub-cutaneously prior to the start of the procedure. Presentation was again confirmed. A total of 3 attempts were made to turn the fetus, two backwards rolls and one forward roll, which was successful. During the procedure the heart rate was checked with the ultrasound and and remained in the normal range. The patient experienced minimal discomfort duringthe procedure. After the procedure, the patient was comfortable and in stable condition. Post-procedure NST: Baseline Rate: 145 Accelerations: present Decelerations: absent Contractions: q2-5min Interpretation: Reactive Cervical exam post-ECV: Cervical Exam: Dilation: 1 (04/28/21 1510) Effacement: 30 Station: -5 Cervical Position: Posterior Consistency: Medium Mora Score: 2 OB Examiner: Yusra Calabrese Plan to start IOL with oneill balloon and low-dose pitocin given frequent contraction pattern. Will initiate GBS ppx with oneill placement. Dr. Newman was present for the entire procedure without intervening responsibility. Bess Gates MD PGY3 04/28/21 Associated attestation - Venecia Newman MD - 04/28/2021 5:14 PM EST I was present and participating during the ECV procedure. I agree with the description of the procedure as outlined. Venecia Newman MD * Bess Gates - 04/28/2021 12:30 PM EST NST Note Patient ID:Edwar Dominguez??is a 46 y.o.?? at 34w0d gestation (by 11 week US) admitted as a transfer from [facility]??for preeclampsia with severe features??superimposed on chronic hypertension. HD#5. Plan for moving towards delivery today w/ ECV > IOL if successful. NST Fetus A 04/28/2021 HR (beats/min) 140 HR Variability moderate (amplitude range 6 to 25 bpm) HR Accelerations greater than/equal to 15 bpm;lasting at least 15 seconds HR Decelerations absent Contraction Frequency (Minutes) x1 in 20 min strip Nonstress Test Interpretation Reactive, >32 weeks: two 15 bpm accelerations lasting 15 seconds Overall Impression Reassuring for gestational age Comments start 1124 end 1157 Bess Gates MD PGY3 04/28/21 ?? Associated attestation - Venecia Newman MD - 04/28/2021 1:07 PM EST Attending Note: I was the attending physician supervising the resident in the above care and I personally reviewed and interpreted the NST. I agree with the resident's interpretation as noted above. Venecia Newman MD * Taylor Schmidt RN - 04/28/2021 12:23 PM ESTSummary: piv assess/infiltrate of lactated ringers Images from the original note were not included. Infiltration/Extravasation Scale Edwar Dominguez [id number] BP05/BP05-A Infiltration appearance:EDEMA, no pain Infiltration harm % for this extremity 25%, Based on measurement calculation (greatest measurement,15 cm X divided by length of extremity, 61 cm multiplied by 100= %) Considerations and Gutierrez: Consider the following: If the percentage of limb affected is <5% then select 1 If the percentage of limb affected is 6-25% then select 2 If the percentage of limb affected is 26-49% then select 3 If the percentage of limb affected is > 50% then always select 4 Skin blanched Edema 1 to 6 inches (2.5 to 15 cm) in any direction Cool to touch With or without pain Infiltration appearance score: 2 Medication Name infiltrated is lactated ringers which is a (n) nont an irritant or vesicant Location of infiltration:left arm: posterior Measurement in cm of length and width of affected area---Affected extremity 11cm x 15 cm Measurement of Circumference in cm of Infiltrated area of affected extremity 31 cm Measurement of Circumference in cm of Unaffected extremity unable to measure as second piv being placed by ultrasound(at same location as affected extremity) Pulses present on affected extremity yes Medicated treatment given per policy/ order: no treatment indicated Plan for continued monitoring of infiltration/extravasation Name of MD contacted in room 12:23 PM Name of RN contacted in room 12:23 PM Name of Pharmacist if consulted n/a 12:23 PM Plastics Provider contacted: no 12:23 PM Name of Plastics MD (if consulted) PHOTO TO BE ADDED HERE (Mandatory photo for infiltrations/ extravasations scoring a stage 2 or greater, but recommended for stage 1. Include measuring tape and identifier in the photo) COVER CUTTER MACHINE CARING FOR THIS PATIENT WILL CONTINUE TO MONITOR AND WILL ASSUME CARE, VASCULAR ACCESS WILL NOT FOLLOW THIS EVENT AT THE SIGNING OF THIS NOTE. * Yusra Calabrese MD - 04/28/2021 11:33 AM EST 04/28/21 11:33 AM ECV consent and BSUS: The patient was consented for external cephalic version. We discussed the procedure in detail as well as alternatives, benefits, risks. Risks reviewed included bleeding, infection, rupture of membranes, abruption, intolerance, emergency section. All questions were answered to her sati sfaction, she did agree to proceed and signed consents. BSUS performed to confirm position. Determined to be persistently transverse, head to maternal left. Yusra Calabrese MD, PGY1 Obstetrics and Gynecology 04/28/2021 Associated attestation - Venecia Newman MD - 04/28/2021 1:06 PM EST Discussed slightly higher success rates for ECV with regional anesthesia. Due to the position of her baby (transverse, spine up), early gestational age, and adequate AFV, chances of success are higher. She would prefer an attempt of ECV without anesthesia. Of note, she has a hx of bradycardia/asystole during a L5-S1 discectomy in 2008 that resolved w/ atropine. The op note was available, but anesthesia records were not available. Venecia Newman MD * OdessaBess richardson Aris - 04/28/2021 10:54 AM EST Images from the original note were not included. Obstetrical Antepartum Progress Note Patient ID:Edwar Dominguez is a 46 y.o. at 34w0d gestation (by 11 week US) being admitted as atransfer from [facility] for preeclampsia with severe features superimposed on chronic hypertension. HD#5 24 Hour Events -none Subjective: Edwar is feeling well today. She reports no vaginal bleeding, loss of fluid or contractions. She denies headache, vision changes, RUQ pain, dizziness/lightheadedness, palpitations. Feeling good movement. Review of Systems: Negative except as detailed above. Objective: Physical Exam Patient Vitals for the past 24 hrs: BP Temp Temp src Pulse Resp SpO2 04/28/21 0749 (!) 150/91 36.5 ??C (97.7 ??F) Oral 86 19 99 % 04/28/21 0539 152/84 36.5 ??C (97.7 ??F) Oral 87 18 99 % 04/27/21 2108 148/86 -- -- 84 -- -- 04/27/212002 150/82 36.6 ??C (97.9 ??F) Oral 92 20 97 % 04/27/21 1409 157/80 -- -- 82 18 99 % Gen: appears well, sitting up in bed, conversant CV: RRR, no systolic murmur, no rubs/gallops Pulm: CTAB, no wheezes/crackles, good inspiratory effort Uterus: gravid, nontender Ext: calves non tender, 1+ non pitting edema bilaterally Psych: normal mood and affect Heart Rate Interpretation: Please see separate daily NST note. Detailed Morphology US ([place]) Date: 02/06/2021 GA at US: 23w 3d EFW: 597 gm (1 lb 5 oz) Growth appropriate for gestational age Amniotic fluid volume normal Placenta anterior fundal Presentation variable ?? Most Recent Growth Ultrasound Date: 04/16/2021 GA at US: 35w 4d EFW: 2720 gm (6 lb 0z) Growth appropriate for gestational age Amniotic fluid volume normal Placenta anterior fundal Labs Pre-eclampsia Labs Recent Labs 04/27/21 2220 04/27/21 0904 04/26/21 2100 WBC 11.7* 13.6* 15.5* HGB 10.4* 9.7* 10.0* HCT 30.5* 29.4* 30.0* PLATELET 286 307 304 AST 22 25 19 ALT 25 24 22 CREATININE 0.84 0.79 0.99 Glucose Labs ABO/RH O+ Hgb/Hct 11.8/34.4 Platelets 243 Rubella Immune Syphillis Negative GC/Chlam Negative Urine Culture Contaminant, negative HepBsAg Negative HIV Negative 1 hr GTT 93 3 hr GTT N/A GBS Collected 04/25 at and pending Assessment & Plan:Edwar Dominguez is a 46 y.o. at 34w0d (by 11 week US) admitted for pre-eclampsia with severe features superimposed on chronic hypertension. ?? 1. Preeclampsia with severe features superimposed on chronic hypertension: Qualified by needing BP treatment (5, 10mg IV Hydralazine at OSH). UPCR 0.1 at [facility]. Despite chronic kidney disease and chronic hypertension, she had urine protein assessment at the beginning of which was negative.No severe- range BPs since admission. Discussed recommendation for delivery at 34-35 weeks in the setting of preeclampsia with severe features. No severe range blood pressures currently, normal labs, and no symptoms of severe features. Discussed moving towards delivery today as she is 34w0d, though also reasonable to delay up to 1 weekin the setting of stable maternal and clinical picture currently, with delivery recommended sooner with severe range Bps, worsening labs, or non- reassuring status. Pt prefers moving towards delivery today. Last known presentation transverse, confirmed on BSUS today. Discussed PCS vs ECV with IOL if successful. Pt desires ECV and IOL if successful, but if not successful, desires PCS today. Restart MgSO4 for seizure ppx. ?? Labs: T&S, CBC, CMP ? Q4H BP checks ? Continue home PO Labetalol 200 mg BID ? Treat severe range sustained blood pressures >160/110 ? Magnesium sulfate discontinued 04/25. Will restart this morning as we will move towards delivery today. ? Informed consent obtained for ECV ?? 2. gestation ? Steroid status: S/p 2 doses betamethasone 12.5 mg completed 04/25 ? Tocolysis Received: Not indicated ? Delivery Indications: Moving towards delivery today per pt preference following shared decision making conversation ? Delivery Plan: ECV > IOL if successful. If unsuccessful, PCS with BTL. ? Consults obtained: Neonatology, Anesthesiology ? contraception plan: Bilateral salpingectomy or tubal if , if not feasible 6 week tubal ? Hemorrhage Risk: High, 2 IVs, active T&S ?? 2. Chronic kidney disease: Last creatinine 0.7. Previously as high as 1.13. ? Labs: creatinine, electrolytes, Cr 0.73, GFR 99 ? Avoid nephrotoxic agents ?? 3. Gestational diabetes: ? Continue fasting and postprandial glucose checks, ? Increased nighttime NPH to 8u on 04/26. ? Sensitive SSI ordered for correctional. Keep 1 hour postprandial BG<140 ?? 4. Mild hyponatremia to 130 on admission, which could be in the setting of mild hyperglycemia or SIADH related to preeclampsia with severe features. Na downtrended to leslie of 124 on 04/25 and then improved after discontinuation of IV fluids. ? Q12H CMP ?? 5. Loss of consciousness on HD#1. Likely syncopal/vasovagal episode secondary to rapid changes in BP, though cant rule out that this was a seizure. Pt with hx of cardiac arrhythmia with asystole during back surgery at [facility] in 2008. ? ECG as baseline 04/25 showed NSR with an age indeterminate anterior infarct ? Echocardiogram performed 04/26 showed normal valves, trace MR, and LVEF 67% ? Records reviewed in [facility]'s EMR by Dr. Newman. 6. Status ? Daily NST, continuous EFM if IOL ? Last Growth US: 04/25/21: LGA baby 2823g >95%. Anterior placenta. Mild polyhydramnios (NEREIDA 23.3) ? Presentation: Transverse with head to maternal left (3/5) ?? 7. care ? GBS status: GBS pos, will administer PCN if IOL ? 1hr GTT: Early 1hr GTT 93, repeat GTT and 3hr GTT not seen in records, but carries diagnosis of GDM on 8 U NPH nightly ? TDaP: Not seen in records. Not yet received though likely no value at this point since moving towards delivery today. ? Contraception Plan: TBD, bilateral salpingectomy after waiting 72h from signing tubal consent ? Consents obtained: delivery with bilateral salpingectomy, ORT, opioids Patient seen and discussed with Maternal Medicine attending, Dr. Olsen. Bess Gates MD, PGY-3 04/28/2021 Associated attestation - Zara Olsen MD - 04/29/2021 8:31 PM EST MFM attending note I saw and evaluated the patient. I agree with the findings and the plan of care as documented in Dr. Gates's note. The patient reports feeling generally well. She denies contractions, leaking of fluidor bleeding. She denies headache, epigastric pain, RUQ pain, scotomata or change in edema. She reports good activity. My physical exam confirms and/or revises Dr. Gates's exam. Temp: [35.7 ??C (96.3 ??F)-36.8 ??C (98.2 ??F)] Heart Rate: [57-98] Resp: [16-20] BP: (84-167)/(49-100) SpO2: [93 %-100 %] Heart Rate from SpO2: [59 bpm-96 bpm] Nonstress test: Documented elsewhere Abdomen: gravid, soft, nontender Ext: no edema Impression: 34.0 weeks here with chronic hypertension and presumed superimposed preeclampsia with severe features by hypertension and by the possibility of a seizure event on the first day of admission. She has had normal labs and reassuring testing. We discussed the options for how to proceed. She has an indication for delivery today, but given her stable condition, we offered ongoing expectant management with a plan for delivery at 35 weeks which would vastly decrease the likelihood of and ICN stay for the baby. Plan: She asked very good questions and opted for delivery with ECV and IOL Zara Olsen MD * Zoey Dickens RN - 04/27/2021 6:18 PM EST OUTCOME EVALUATION NOTE: OUTCOME SUMMARY: VSS. Pt denies ctx, LOF, or VB, and endorses +FM. Reactive NST. Pt without complaints. BG well controlled throughout shift, see MAR. Pt denies RUQ pain, BLACKMON, or vision changes. PLAN MOVING FORWARD: Continue current plan of care INDIVIDUALIZED FALL PREVENTION INTERVENTIONS: Patient-specific fall risk factors per assessment: [current deficits]: As documented Assistance [level of assistance required for transfers and ambulation]: Independent Supervision [direct monitoring required during toileting and ADLs]: Independent Surveillance [continuous indirect monitoring]: Purposeful rounding, call perez in reach * Mandie Aguilera - 04/27/2021 1:15 PM EST Obstetrical Antepartum Progress Note Patient ID:Edwar Dominguez is a 46 y.o. at 33w4d gestation (by 11 week US) being admitted as atransfer from [facility] for preeclampsia with severe features superimposed on chronic hypertension. HD#4 24 Hour Events -none Subjective: Edwar is feeling well today. She reports no vaginal bleeding, loss of fluid or contractions. She denies headache, vision changes, RUQ pain, dizziness/lightheadedness, palpitations. Feeling good movement. Review of Systems: Negative except as detailed above. Objective: Physical Exam Patient Vitals for the past 24 hrs: BP Temp Temp src Pulse Resp SpO2 Weight 04/26/21 2048 139/76 -- -- 92 -- -- -- 04/26/21 1950 146/80 36.9 ??C (98.4 ??F) Oral 92 17 97 % -- 04/26/21 1744 -- -- -- -- -- -- 95.8 kg (211 lb 4.8 oz) 04/26/21 1621 145/82 36.9 ??C (98.4 ??F) Oral 91 -- -- -- 04/26/21 1154 138/87 36.5 ??C (97.7 ??F) Oral 97 -- -- -- 04/26/21 0820 146/83 36.6 ??C (97.9 ??F) Oral 94 -- -- -- 04/26/21 0546 146/73 -- -- (!) 104 -- 98 % -- 04/26/21 0440 138/74 36.6 ??C (97.9 ??F) Oral 90 18 97 % -- 04/26/21 0014 139/76 -- -- 82 -- -- -- Gen: appears well, sitting up in bed, conversant CV: RRR, no systolic murmur, no rubs/gallops Pulm: CTAB, no wheezes/crackles, good inspiratory effort Uterus: gravid, nontender Ext: calves non tender, 1+ non pitting edema bilaterally, SCDs in place Neuro: DTRs 2+ and equal bilaterally at patella, no clonus Psych: normal mood and affect Heart Rate Interpretation: Please see separate daily NST note. Detailed Morphology US ([place]) Date: 02/06/2021 GA at US: 23w 3d EFW: 597 gm (1 lb 5 oz) Growth appropriate for gestational age Amniotic fluid volume normal Placenta anterior fundal Presentation variable ?? Most Recent Growth Ultrasound Date: 04/16/2021 GA at US: 35w 4d EFW: 2720 gm (6 lb 0z) Growth appropriate for gestational age Amniotic fluid volume normal Placenta anterior fundal Labs Lab Results Component Value Date WBC 15.5 (H) 04/26/2021 HGB 10.0 (L) 04/26/2021 HCT 30.0 (L) 04/26/2021 MCV 91.5 04/26/2021 PLATELET 304 04/26/2021 Lab Results Component Value Date NA 134 (L) 04/26/2021 K 4.4 04/26/2021 CL 105 04/26/2021 CO2 15 (L) 04/26/2021 BUN 11 04/26/2021 CREATININE 0.75 04/26/2021 GLUCOSE 122 04/26/2021 CALCIUM 8.2 (L) 04/26/2021 ESTGFR 96 04/26/2021 Lab Results Component Value Date ALT 19 04/26/2021 AST 19 04/26/2021 ALKPHOS 88 04/26/2021 BILITOT 0.3 04/26/2021 ALBUMIN 3.7 04/26/2021 PROT 6.7 04/26/2021 Pre-eclampsia Labs Recent Labs 04/26/21 2100 04/26/21 0550 04/26/21 0024 04/25/21 1910 04/25/21 1825 04/25/21 0605 04/25/21 0109 WBC 15.5* 14.2* -- -- 15.7* < > -- HGB 10.0* 10.4* -- -- 10.4* < > -- HCT 30.0* 30.0* -- -- 30.2* < > -- PLATELET 304 297 -- -- 323 < > -- AST -- 19 Not Perf 18 -- < > -- ALT -- 19 21 19 -- < > -- CREATININE -- 0.75 0.84 0.82 -- < > -- UPROTCREAT -- -- -- -- -- -- 0.3 < > = values in this interval not displayed. Labs ABO/RH O+ Hgb/Hct 11.8/34.4 Platelets 243 Rubella Immune Syphillis Negative GC/Chlam Negative Urine Culture Contaminant, negative HepBsAg Negative HIV Negative 1 hr GTT 93 3 hr GTT N/A GBS Collected 04/25 at and pending Assessment & Plan:Edwar Dominguez is a 46 y.o. at 33w4d (by 11 week US) being admitted forpre-eclampsia with severe features superimposed on chronic hypertension. ? 1. Preeclampsia with severe features superimposed on chronic hypertension: UPCR 0.1 at [facility]. Despite chronic kidney disease and chronic hypertension, she had urine protein assessment at the beginningof which was negative. BP: (126-147)/(75-81) since arrival, no severe-range BPs since admission. Previously received 5 mg, 10 mg IV hydralazine at OSH. Will continue home antihypertensive PO Labetalol 200 mg BID. Recommendation for admission until 34 weeks and delivery at that gestationalage pending clinical course. ? Labs: T&S, CBC, CMP ? Q4H BP checks ? Continue home PO Labetalol 200 mg BID ? Treat severe range sustained blood pressures >160/110 ? Magnesium sulfate discontinued 04/25 ?? 2. gestation ? Steroid status: S/p 2 doses betamethasone 12.5 mg completed 04/25 ? Magnesium for neuroprotection: Not indicated ? Tocolysis Received: Not indicated ? Delivery Indications: Nonreassuring status, uncontrollable hypertension, maternal deterioration ? Delivery Plan: Given malpresentation currently, plan would be delivery with bilateral salpingectomy (tubal consent signed 04/25/21). If admitted until 34 weeks with spontaneous version, would plan induction. ? Consults obtained: Neonatology, Anesthesiology ? contraception plan: Bilateral salpingectomy or tubal if , if not feasible 6 week tubal ? Hemorrhage Risk: High, 2 IVs, active T&S ?? 2. Chronic kidney disease: Last creatinine 0.7. Previously as high as 1.13. ? Labs: creatinine, electrolytes, Cr 0.73, GFR 99 ? Avoid nephrotoxic agents ?? 3. Gestational diabetes: ? Continue fasting and postprandial glucose checks, glucose 141 on fasting CMP specimen, 237 on POCT BG check ? Increased nighttime NPH to 8u on 04/26. ? Sensitive SSI ordered for correctional. Keep 1 hour postprandial BG<140 ?? 4. Mild hyponatremia to 130 on admission, which could be in the setting of mild hyperglycemia or SIADH related to preeclampsia with severe features. Na downtrended to leslie of 124 on 04/25 and then improved after discontinuation of IV fluids. ? Q12H CMP ?? 5. Loss of consciousness on HD#1. Likely syncopal/vasovagal episode secondary to rapid changes in BP. In the setting of possible prior arrhythmia during back surgery mentioned in records brings up the possibility of occult arrhythmia or cardiac source of syncope. Seizure is a ? ECG as baseline 04/25 showed NSR with an age indeterminate anterior infarct ? Echocardiogram performed 04/26 showed normal valves, trace MR, and LVEF 67% ? Records requested from patient's PCP Dr. Cielo Goncalves in [facility] 6. Status ? Daily NST ? Last Growth US: 04/25/21: LGA baby 2823g >95%. Anterior placenta. Mild polyhydramnios (NEREIDA 23.3) ? Presentation: Transverse with head to maternal left (04/25) ?? 7. care ? GBS status: GBS collected 04/25 and pending ? 1hr GTT: Early 1hr GTT 93, repeat GTT and 3hr GTT not seen in records, but carries diagnosis of GDM on 4 U NPH nightly ? TDaP: Not seen in records, ordered ? Contraception Plan: TBD, bilateral salpingectomy after waiting 72h from signing tubal consent ? Consents obtained: delivery with bilateral salpingectomy, ORT, opioids Patient seen and discussed with Maternal Medicine attending, Dr. Olsen. Mandie Aguilera MD, PGY-3 04/26/2021 Associated attestation - Zara Olsen MD - 04/27/2021 5:59 PM EST MFM attending note I saw and evaluated the patient. I agree with the findings and the plan of care as documented in Dr. Aguilera's note. The patient reports feeling well. She denies contractions, leaking of fluid or bleeding. She reports good activity. She denies headache, epigastric pain, RUQ pain, scotomata or change in edema. My physical exam confirms and/or revises Dr. Aguilera's exam. Temp: [36.5 ??C (97.7 ??F)-37 ??C (98.6 ??F)] Heart Rate: [78-92] Resp: [17-18] BP: (133-157)/(74-84) SpO2: [96 %-99 %] Heart Rate from SpO2: [83 bpm-98 bpm] Nonstress test: Documented elsewhere Abdomen: gravid, soft, nontender Ext: no edema Impression: 33w6d with chronic hypertension and superimposed preeclampsia. Admitted with severe features by hypertension. She has been stable here which may be a steroid holiday. The testing has been reassuring Well controlled GMDA2 Recent syncope event has been well evaluated. We are awaiting some records from her outside medicalcare Malpresentation High hemorrhage risk Plan: Continue hospitalization for and maternal safety and ongoing assessment regarding need for delivery. Remain hospitalized until delivery Daily NST and labs Consider delivery tomorrow depending on her status and unit census. Will need to do a version or plan for CS delivery Will need magnesium with delivery Continue insulin Zara Olsen MD * Mandie Aguilera - 04/26/2021 9:32 PM EST Daily Non-Stress Test Documentation ID: Edwar Dominguez is a 46 y.o. at 33w6d gestation (by 11 week US) being admitted as a transfer from [facility] for preeclampsia with severe features superimposed on chronic hypertension. HD#4. NST Fetus A 04/27/2021 HR (beats/min) 145 HR Variability moderate (amplitude range 6 to 25 bpm) HR Accelerations present;lasting at least 15 seconds;greater than/equal to 15 bpm HR Decelerations none Contraction Frequency (Minutes) rare Nonstress Test Interpretation Reactive, >32 weeks: two 15 bpm accelerations lasting 15 seconds Overall Impression Reassuring for gestational age Comments - Reviewed with Dr. Sue, attending physician. Mandie Aguilera MD PGY-3 04/27/2021 ?? Associated attestation - Eduardo Sue MD - 04/27/2021 3:36 PM EST I personally reviewed the nonstress test and agree with the interpretation as documented above. Eduardo Sue MD 04/27/2021 3:35 PM * Juan F García MD - 04/26/2021 5:00 PM EST Daily Non-Stress Test Documentation ID: Edwar Dominguez is a 46 y.o. at 33w5d gestation (by 11 week US) being admitted as a transfer from [facility] for preeclampsia with severe features superimposed on chronic hypertension. HD#3. NST Fetus A 04/26/2021 HR (beats/min) 145 HR Variability - HR Accelerations greater than/equal to 15 bpm;lasting at least 15 seconds;present HR Decelerations absent Contraction Frequency (Minutes) none Nonstress Test Interpretation Reactive, >32 weeks: two 15 bpm accelerations lasting 15 seconds Overall Impression Reassuring for gestational age Comments - Reviewed with Dr. García, attending Maternal Medicine physician. Mandie Aguilera MD PGY-3 04/26/2021 ??I was the attending physician supervising the resident in the above care and I was present with the resident for the entire procedure. JUAN F GARCÍA MD * Juan F García MD - 04/26/2021 9:44 AM EST Obstetrical Antepartum Progress Note Patient ID:Edwar Dominguez is a 46 y.o. at 33w4d gestation (by 11 week US) being admitted as atransfer from [facility] for preeclampsia with severe features superimposed on chronic hypertension. HD#3 24 Hour Events -none Subjective: Edwar is feeling much better today. She slept very well last night, her headache is completely resolved, and she feels vastly improved. Her leg swelling is minimal. She has some swelling at her right wrist due to carpal tunnel in . She reports no vaginal bleeding, loss of fluid or contractions. Feeling good movement. Review of Systems: Negative except as detailed above. Objective: Physical Exam Patient Vitals for the past 24 hrs: BP Temp Temp src Pulse Resp SpO2 04/26/21 0820 146/83 36.6 ??C (97.9 ??F) Oral 94 -- -- 04/26/21 0546 146/73 -- -- (!) 104 -- 98 % 04/26/21 0440 138/74 36.6 ??C (97.9 ??F) Oral 90 18 97 % 04/26/21 0014 139/76 -- -- 82 -- -- 04/25/21 2112 144/72 36.5 ??C (97.7 ??F) Oral 85 18 97 % 04/25/21 1745 144/76 -- -- 83 -- -- 04/25/21 1712 138/76 -- -- 84 16 98 % 04/25/21 1400 -- 36.6 ??C (97.9 ??F) Axillary -- -- -- 04/25/21 1348 -- -- -- -- -- 100 % 04/25/21 1344 -- -- -- -- -- 99 % 04/25/21 1340 -- -- -- -- -- 99 % 04/25/21 1336 -- -- -- -- -- 99 % 04/25/21 1332 -- -- -- -- -- 99 % 04/25/21 1328 -- -- -- -- -- 98 % 04/25/21 1324 -- -- -- -- -- 98 % 04/25/21 1320 -- -- -- -- -- 99 % 04/25/21 1316 -- -- -- -- -- 99 % 04/25/21 1312 -- -- -- -- -- 99 % 04/25/21 1307 -- -- -- -- -- 99 % 04/25/21 1305 132/82 -- -- 78 -- -- 04/25/21 1303 -- -- -- -- -- 99 % 04/25/21 1259 -- -- -- -- -- 100 % 04/25/21 1254 -- -- -- -- -- 98 % 04/25/21 1250 -- -- -- -- -- 99 % 04/25/21 1245 -- -- -- -- -- 99 % 04/25/21 1240 -- -- -- -- -- 99 % 04/25/21 1236 -- -- -- -- -- 98 % 04/25/21 1232 -- -- -- -- -- 100 % 04/25/21 1228 -- -- -- -- -- 99 % 04/25/21 1224 -- -- -- -- -- 99 % 04/25/21 1220 -- -- -- -- -- 99 % 04/25/21 1216 -- -- -- -- -- 98 % 04/25/21 1212 -- -- -- -- -- 98 % 04/25/21 1208 -- -- -- -- -- 97 % 04/25/21 1205 126/73 -- -- 79 -- -- 04/25/21 1203 -- -- -- -- -- 98 % 04/25/21 1151 -- -- -- -- -- 96 % 04/25/21 1147 -- -- -- -- -- 98 % 04/25/21 1143 -- -- -- -- -- 98 % 04/25/21 1139 -- -- -- -- -- 96 % 04/25/21 1135 -- -- -- -- -- 96 % 04/25/21 1131 -- -- -- -- -- 98 % 04/25/21 1127 -- -- -- -- -- 97 % 04/25/21 1123 -- -- -- -- -- 97 % 04/25/21 1119 -- -- -- -- -- 96 % 04/25/21 1114 -- -- -- -- -- 97 % 04/25/21 1110 -- -- -- -- -- 97 % 04/25/21 1106 -- -- -- -- -- 97 % 04/25/21 1105 123/ -- -- 75 -- -- 04/25/21 1102 -- -- -- -- -- 98 % 04/25/21 1058 -- -- -- -- -- 99 % 04/25/21 1054 -- -- -- -- -- 97 % 04/25/21 1050 -- -- -- -- -- 97 % 04/25/21 1046 -- -- -- -- -- 97 % 04/25/21 1042 -- -- -- -- -- 97 % 04/25/21 1038 -- -- -- -- -- 97 % 04/25/21 1034 -- -- -- -- -- 99 % 04/25/21 1030 -- -- -- -- -- 99 % 04/25/21 1026 -- -- -- -- -- 98 % 04/25/21 1022 -- -- -- -- -- 97 % 04/25/21 1018 -- -- -- -- -- 97 % 04/25/21 1014 -- -- -- -- -- 98 % 04/25/21 1010 -- -- -- -- -- 97 % 04/25/21 1005 128/71 36.5 ??C (97.7 ??F) Axillary 84 18 98 % Gen: appears well, sitting up in bed, conversant CV: RRR, 3/6 systolic murmurs, no rubs/gallops Pulm: CTAB, no wheezes/crackles, good inspiratory effort Uterus: gravid, nontender Ext: calves non tender, 1+ non pitting edema bilaterally, SCDs in place Neuro: DTRs 3+ and equal bilaterally at patella, 1 beat of clonus on right Psych: normal mood and affect Heart Rate Interpretation: Please see separate daily NST note. Detailed Morphology US ([place]) Date: 02/06/2021 GA at US: 23w 3d EFW: 597 gm (1 lb 5 oz) Growth appropriate for gestational age Amniotic fluid volume normal Placenta anterior fundal Presentation variable ?? Most Recent Growth Ultrasound Date: 04/16/2021 GA at US: 35w 4d EFW: 2720 gm (6 lb 0z) Growth appropriate for gestational age Amniotic fluid volume normal Placenta anterior fundal Labs Lab Results Component Value Date WBC 14.2 (H) 04/26/2021 HGB 10.4 (L) 04/26/2021 HCT 30.0 (L) 04/26/2021 MCV 89.3 04/26/2021 PLATELET 297 04/26/2021 Lab Results Component Value Date NA 134 (L) 04/26/2021 K 4.4 04/26/2021 CL 105 04/26/2021 CO2 15 (L) 04/26/2021 BUN 11 04/26/2021 CREATININE 0.75 04/26/2021 GLUCOSE 122 04/26/2021 CALCIUM 8.2 (L) 04/26/2021 ESTGFR 96 04/26/2021 Lab Results Component Value Date ALT 19 04/26/2021 AST 19 04/26/2021 ALKPHOS 88 04/26/2021 BILITOT 0.3 04/26/2021 ALBUMIN 3.7 04/26/2021 PROT 6.7 04/26/2021 Pre-eclampsia Labs Recent Labs 04/26/21 0550 04/26/21 0024 04/25/21 1910 04/25/21 1825 04/25/21 1215 04/25/21 0605 04/25/21 0109 WBC 14.2* -- -- 15.7* 14.3* < > -- HGB 10.4* -- -- 10.4* 10.6* < > -- HCT 30.0* -- -- 30.2* 30.2* < > -- PLATELET 297 -- -- 323 315 < > -- AST 19 Not Perf 18 -- 20 < > -- ALT 19 21 19 -- 18 < > -- CREATININE 0.75 0.84 0.82 -- 0.76 < > -- UPROTCREAT -- -- -- -- -- -- 0.3 < > = values in this interval not displayed. Labs ABO/RH O+ Hgb/Hct 11.8/34.4 Platelets 243 Rubella Immune Syphillis Negative GC/Chlam Negative Urine Culture Contaminant, negative HepBsAg Negative HIV Negative 1 hr GTT 93 3 hr GTT N/A GBS Collected 04/25 at and pending Assessment & Plan:Edwar Dominguez is a 46 y.o. at 33w4d (by 11 week US) being admitted forpre-eclampsia with severe features superimposed on chronic hypertension. ? 1. Preeclampsia with severe features superimposed on chronic hypertension: UPCR 0.1 at [facility]. Despite chronic kidney disease and chronic hypertension, she had urine protein assessment at the beginningof which was negative. BP: (126-147)/(75-81) since arrival, no severe-range BPs since admission. Previously received 5 mg, 10 mg IV hydralazine at OSH. Will continue home antihypertensive PO Labetalol 200 mg BID. Recommendation for admission until 34 weeks and delivery at that gestationalage pending clinical course. ? Labs: T&S, CBC, CMP ? Q4H BP checks ? Continue home PO Labetalol 200 mg BID ? Treat severe range sustained blood pressures >160/110 ? Magnesium sulfate discontinued 04/25 ?? 2. gestation ? Steroid status: S/p 2 doses betamethasone 12.5 mg completed 04/25 ? Magnesium for neuroprotection: Not indicated ? Tocolysis Received: Not indicated ? Delivery Indications: Nonreassuring status, uncontrollable hypertension, maternal deterioration ? Delivery Plan: Given malpresentation currently, plan would be delivery with bilateral salpingectomy (tubal consent signed 04/25/21). If admitted until 34 weeks with spontaneous version, would plan induction. ? Consults obtained: Neonatology, Anesthesiology ? contraception plan: Bilateral salpingectomy or tubal if , if not feasible 6 week tubal ? Hemorrhage Risk: High, 2 IVs, active T&S ?? 2. Chronic kidney disease: Last creatinine 0.7. Previously as high as 1.13. ? Labs: creatinine, electrolytes, Cr 0.73, GFR 99 ? Avoid nephrotoxic agents ?? 3. Gestational diabetes: ? Continue fasting and postprandial glucose checks, glucose 141 on fasting CMP specimen, 237 on POCT BG check ? Will likely adjust nighttime NPH today based on elevated fasting of 128 ? Sensitive SSI ordered for correctional. Keep 1 hour postprandial BG<140 ?? 4. Mild hyponatremia to 130 on admission, which could be in the setting of mild hyperglycemia or SIADH related to preeclampsia with severe features. Na downtrended to leslie of 124 on 04/25 and then improved after discontinuation of IV fluids. Improved mental status today ? Low urine osmolality, consider repeating today after stopping IVF and adding urine sodium ? Q12H CMP ?? 5. Syncopal episode. Likely vasovagal but in the setting of possible prior arrhythmia during back surgery mentioned in records brings up the possibility of occult arrhythmia or cardiac source of syncope ? ECG as baseline yesterday showed NSR, final read pending ? Plan for echocardiogram this morning ? Records requested from patient's PCP Dr. Cielo Goncalves in [facility] 6. Status ? Daily NST ? Last Growth US: 04/25/21: LGA baby 2823g >95%. Anterior placenta. Mild polyhydramnios (NEREIDA 23.3) ? Presentation: Transverse with head to maternal left (04/25) ?? 7. care ? GBS status: GBS collected 04/25 and pending ? 1hr GTT: Early 1hr GTT 93, repeat GTT and 3hr GTT not seen in records, but carries diagnosis of GDM on 4 U NPH nightly ? TDaP: Not seen in records, ordered ? Contraception Plan: TBD, bilateral salpingectomy after waiting 72h from signing tubal consent ? Consents obtained: delivery with bilateral salpingectomy, ORT, opioids Patient seen and discussed with Maternal Medicine attending, Dr. García. Mandie Aguilera MD, PGY-3 04/26/2021 11:00 am I have seen and examined the patient, providing gutierrez components as outlined below. I have reviewed the resident???s above note; my evaluation of the patient is below: 33 4/7 weeks CHTN superimposed preeclampsia with severe features. FM felt, no LOF, no bleeding or jamison. No BLACKMON's, vision changes or epigastric pain. AF 146/83 146/73 138/74 139/76 144/72 144/76 138/76 NAD Abdomen soft, NT Uterus gravid NT Ext NT I/R 33 4/7 weeks CHTN superimposed preeclampsia with severe features. status reassuring QD NST S/p BMZ No evidence of HELLP syndrome, no recent IV meds required Plan delivery 34 weeks or if persistent severe range HTN or HELLP or NRFWB Malpresentation JUAN F GARCÍA MD * Gus Parikh MD - 04/25/2021 5:54 PM EST 46 yo at 33w4d with preeclampsia with severe features. Had BLACKMON this morning which improved significantly with tylenol. Mg discontinued. US with macrosomia and polyhydramnios. A/P: OK to continue expectant management. Plan EKG Echo tomorrow due to hx/o mitral regurgitation. Low threshold to restart magnesium for seizure prophylaxis. MD Chris * Leti Guerrero MD - 04/25/2021 4:23 PM EST Daily Non-Stress Test Documentation ID: Edwar Dominguez is a 46 y.o. at 33w4d gestation (by 11 week US) being admitted as a transfer from [facility] for preeclampsia with severe features superimposed on chronic hypertension. HD#2. NST Fetus A 04/25/2021 HR (beats/min) 115 HR Variability moderate (amplitude range 6 to 25 bpm) HR Accelerations present HR Decelerations absent Contraction Frequency (Minutes) irregular q10mn Nonstress Test Interpretation Reactive, >32 weeks: two 15 bpm accelerations lasting 15 seconds Overall Impression Reassuring for gestational age Comments - Reviewed with Dr. Parikh, attending Maternal Medicine physician. Leti Guerrero MD PGY-3 04/25/2021 ?? Associated attestation - Gus Parikh MD - 04/25/2021 6:41 PM EST I personally reviewed the NST and agree with this assessment. MD Chris * Mandie Aguilera - 04/25/2021 11:30 AM EST Obstetrical Antepartum Progress Note Patient ID:Edwar Dominguez is a 46 y.o. at 33w4d gestation (by 11 week US) being admitted as atransfer from [facility] for preeclampsia with severe features superimposed on chronic hypertension. HD#2 24 Hour Events -syncopal episode around 3 am Subjective: Edwar is feeling mediocre today. She reports no vaginal bleeding, loss of fluid or contractions. Feeling good movement. She got minimal sleep last night. She has had no further syncopal episodes. She has a headache which improved slightly and is currently a 2/10. She has some intermittent right upper quadrant pain, but nothing right now. Review of Systems: Negative except as detailed above. Objective: Physical Exam Patient Vitals for the past 24 hrs: BP Temp Temp src Pulse Resp SpO2 Height Weight 04/25/21 1745 144/76 -- -- 83 -- -- -- -- 04/25/21 1712 138/76 -- -- 84 16 98 % -- -- 04/25/21 1400 -- 36.6 ??C (97.9 ??F) Axillary -- -- -- -- -- 04/25/21 1348 -- -- -- -- -- 100 % -- -- 04/25/21 1344 -- -- -- -- -- 99 % -- -- 04/25/21 1340 -- -- -- -- -- 99 % -- -- 04/25/21 1336 -- -- -- -- -- 99 % -- -- 04/25/21 1332 -- -- -- -- -- 99 % -- -- 04/25/21 1328 -- -- -- -- -- 98 % -- -- 04/25/21 1324 -- -- -- -- -- 98 % -- -- 04/25/21 1320 -- -- -- -- -- 99 % -- -- 04/25/21 1316 -- -- -- -- -- 99 % -- -- 04/25/21 1312 -- -- -- -- -- 99 % -- -- 04/25/21 1307 -- -- -- -- -- 99 % -- -- 04/25/21 1305 132/82 -- -- 78 -- -- -- -- 04/25/21 1303 -- -- -- -- -- 99 % -- -- 04/25/21 1259 -- -- -- -- -- 100 % -- -- 04/25/21 1254 -- -- -- -- -- 98 % -- -- 04/25/21 1250 -- -- -- -- -- 99 % -- -- 04/25/21 1245 -- -- -- -- -- 99 % -- -- 04/25/21 1240 -- -- -- -- -- 99 % -- -- 04/25/21 1236 -- -- -- -- -- 98 % -- -- 04/25/21 1232 -- -- -- -- -- 100 % -- -- 04/25/21 1228 -- -- -- -- -- 99 % -- -- 04/25/21 1224 -- -- -- -- -- 99 % -- -- 04/25/21 1220 -- -- -- -- -- 99 % -- -- 04/25/21 1216 -- -- -- -- -- 98 % -- -- 04/25/211211 -- -- -- -- -- 98 % -- -- 04/25/21 1208 -- -- -- -- -- 97 % -- -- 04/25/21 1205 126/73 -- -- 79 -- -- -- -- 04/25/21 120 -- -- -- -- -- 98 % -- -- 04/25/21 115 -- -- -- -- -- 96 % -- -- 04/25/21 114 -- -- -- -- -- 98 % -- -- 04/25/21 114 -- -- -- -- -- 98 % -- -- 04/25/211138 -- -- -- -- -- 96 % -- -- 04/25/211134 -- -- -- -- -- 96 % -- -- 04/25/211130 -- -- -- -- -- 98 % -- -- 04/25/211126 -- -- -- -- -- 97 % -- -- 04/25/211122 -- -- -- -- -- 97 % -- -- 04/25/211118 -- -- -- -- -- 96 % -- -- 04/25/211113 -- -- -- -- -- 97 % -- -- 04/25/21 111 -- -- -- -- -- 97 % -- -- 04/25/211105 -- -- -- -- -- 97 % -- -- 04/25/21 1105 123/73 -- -- 75 -- -- -- -- 04/25/21 110 -- -- -- -- -- 98 % -- -- 04/25/21 1058 -- -- -- -- -- 99 % -- -- 04/25/21 1054 -- -- -- -- -- 97 % -- -- 04/25/21 105 -- -- -- -- -- 97 % -- -- 04/25/21 1046 -- -- -- -- -- 97 % -- -- 04/25/21 1042 -- -- -- -- -- 97 % -- -- 04/25/21 1038 -- -- -- -- -- 97 % -- -- 04/25/21 1034 -- -- -- -- -- 99 % -- -- 04/25/21 1030 -- -- -- -- -- 99 % -- -- 04/25/21 1026 -- -- -- -- -- 98 % -- -- 04/25/21 1022 -- -- -- -- -- 97 % -- -- 04/25/21 1018 -- -- -- -- -- 97 % -- -- 04/25/21 1014 -- -- -- -- -- 98 % -- -- 04/25/21 1010 -- -- -- -- -- 97 % -- -- 04/25/21 1005 128/71 36.5 ??C (97.7 ??F) Axillary 84 18 98 % -- -- 04/25/21902 -- -- -- -- -- 97 % -- -- 04/25/2159 -- -- -- -- -- 97 % -- -- 04/25/21 0857 121/69 -- -- 81 16 -- -- -- 04/25/21 0854 -- -- -- -- -- 98 % -- -- 04/25/21 0849 -- -- -- -- -- 98 % -- -- 04/25/21 0845 -- -- -- -- -- 98 % -- -- 04/25/21 0841 -- -- -- -- -- 98 % -- -- 04/25/2136 -- -- -- -- -- 100 % -- -- 04/25/2132 -- -- -- -- -- 99 % -- -- 04/25/2127 122/75 -- -- 85 -- 99 % -- -- 04/25/2122 -- -- -- -- -- 99 % -- -- 04/25/21817 -- -- -- -- -- 98 % -- -- 04/25/21813 -- -- -- -- -- 98 % -- -- 04/25/21809 -- -- -- -- -- 98 % -- -- 04/25/21805 -- -- -- -- -- 98 % -- -- 04/25/21801 -- -- -- -- -- 98 % -- -- 04/25/21757 -- -- -- -- -- 98 % -- -- 04/25/21756 132/73 -- -- 82 16 -- -- -- 04/25/21753 -- -- -- -- -- 97 % -- -- 04/25/21736 -- -- -- -- -- 97 % -- -- 04/25/21732 -- -- -- -- -- 96 % -- -- 04/25/21727 -- -- -- -- -- 97 % -- -- 04/25/21726 131/74 -- -- 82 -- -- -- -- 04/25/21657 -- -- -- -- -- 96 % -- -- 04/25/21656 132/77 -- -- 85 18 -- -- -- 04/25/21653 -- -- -- -- -- 98 % -- -- 04/25/21649 -- -- -- -- -- 98 % -- -- 04/25/21645 -- -- -- -- -- 98 % -- -- 04/25/21640 -- -- -- -- -- 98 % -- -- 04/25/21636 -- -- -- -- -- 98 % -- -- 04/25/21632 -- -- -- -- -- 98 % -- -- 04/25/21628 -- -- -- -- -- 97 % -- -- 04/25/21626 122/71 -- -- 81 20 -- -- -- 04/25/21624 -- -- -- -- -- 97 % -- -- 04/25/21620 -- -- -- -- -- 98 % -- -- 04/25/21616 -- -- -- -- -- 98 % -- -- 04/25/21612 -- -- -- -- -- 98 % -- -- 04/25/2105 -- -- -- -- -- 99 % -- -- 04/25/21600 -- -- -- -- -- 94 % -- -- 04/25/2157 121/68 -- -- 94 18 97 % -- -- 04/25/21551 -- -- -- -- -- 98 % -- -- 04/25/21546 -- -- -- -- -- 97 % -- -- 04/25/2143 -- -- -- -- -- 97 % -- -- 04/25/2139 -- -- -- -- -- 98 % -- -- 04/25/2135 -- -- -- -- -- 98 % -- -- 04/25/21530 -- -- -- -- -- 98 % -- -- 04/25/21526 126/63 -- -- 94 -- 98 % -- -- 04/25/21522 -- -- -- -- -- 99 % -- -- 04/25/21518 -- -- -- -- -- 98 % -- -- 04/25/2115 -- -- -- -- -- 98 % -- -- 04/25/2110 -- -- -- -- -- 98 % -- -- 04/25/215 -- -- -- -- -- 98 % -- -- 04/25/21500 -- -- -- -- -- 98 % -- -- 04/25/218 118/69 -- -- 100 18 -- -- -- 04/25/21456 -- -- -- -- -- 98 % -- -- 04/25/21452 -- -- -- -- -- 99 % -- -- 04/25/21448 -- -- -- -- -- 97 % -- -- 04/25/21444 -- -- -- -- -- 99 % -- -- 04/25/21440 -- -- -- -- -- 99 % -- -- 04/25/21436 -- -- -- -- -- 98 % -- -- 04/25/21426 139/78 -- -- 85 -- -- -- -- 04/25/21411 128/89 -- -- 85 -- -- -- -- 04/25/21356 130/74 -- -- 80 18 -- -- -- 04/25/21349 105/53 -- -- 51 -- -- -- -- 04/25/21348 -- -- -- -- -- 98 % -- -- 04/25/21344 -- -- -- -- -- 100 % -- -- 04/25/21341 138/79 -- -- 83 -- -- -- -- 04/25/21340 -- -- -- -- -- 100 % -- -- 04/25/21330 -- -- -- -- -- 99 % -- -- 04/25/21326 137/84 -- -- 85 -- -- -- -- 04/25/21324 -- -- -- -- -- 99 % -- -- 04/25/21320 -- -- -- -- -- 97 % -- -- 04/25/21316 -- -- -- -- -- 98 % -- -- 04/25/21311 134/74 -- -- 85 -- 97 % -- -- 04/25/21306 -- -- -- -- -- 97 % -- -- 04/25/21302 -- -- -- -- -- 98 % -- -- 04/25/21258 157/78 36.6 ??C (97.9 ??F) Axillary 89 18 97 % -- -- 04/25/21239 -- -- -- -- -- 98 % -- -- 04/25/21234 -- -- -- -- -- 97 % -- -- 04/25/21229 -- -- -- -- -- 98 % -- -- 04/25/21225 -- -- -- -- -- 98 % -- -- 04/25/21221 -- -- -- -- -- 98 % -- -- 04/25/21217 -- -- -- -- -- 98 % -- -- 04/25/21213 -- -- -- -- -- 98 % -- -- 04/25/21209 -- -- -- -- -- 98 % -- -- 04/25/21205 -- -- -- -- -- 98 % -- -- 04/25/21201 -- -- -- -- -- 98 % -- -- 04/25/21157 -- -- -- -- -- 97 % -- -- 04/25/21156 126/75 -- -- 87 18 -- -- -- 04/25/21152 -- -- -- -- -- 98 % -- -- 04/25/21148 -- -- -- -- -- 97 % -- -- 04/25/21144 -- -- -- -- -- 97 % -- -- 04/25/21140 -- -- -- -- -- 97 % -- -- 04/25/21135 -- -- -- -- -- 97 % -- -- 04/25/21130 -- -- -- -- -- 98 % -- -- 04/25/21125 -- -- -- -- -- 97 % -- -- 04/25/21121 -- -- -- -- -- 97 % -- -- 04/25/21117 -- -- -- -- -- 96 % -- -- 04/25/21113 -- -- -- -- -- 98 % -- -- 04/25/21109 -- -- -- -- -- 98 % -- -- 04/25/2158 -- -- -- -- -- 97 % -- -- 04/25/2156 133/77 -- -- 86 18 -- -- -- 04/25/2153 -- -- -- -- -- 97 % -- -- 04/25/2148 -- -- -- -- -- 98 % -- -- 04/25/2144 -- -- -- -- -- 97 % -- -- 04/25/2140 -- -- -- -- -- 98 % -- -- 04/25/2136 -- -- -- -- -- 97 % -- -- 04/25/2131 -- -- -- -- -- 98 % -- -- 04/25/2126 -- -- -- -- -- 97 % -- -- 04/25/2121 -- -- -- -- -- 99 % -- -- 04/25/2116 -- -- -- -- -- 98 % -- -- 04/25/2112 -- -- -- -- -- 98 % -- -- 04/25/218 -- -- -- -- -- 98 % -- -- 04/25/21 0005 -- -- -- -- -- 98 % -- -- 04/25/21 0000 -- -- -- -- -- 98 % -- -- 04/24/212356 147/81 36.5 ??C (97.7 ??F) Oral 94 16 -- -- -- 04/24/212354 -- -- -- -- -- 98 % -- -- 04/24/212350 -- -- -- -- -- 98 % -- -- 04/24/212346 -- -- -- -- -- 98 % -- -- 04/24/212342 -- -- -- -- -- 98 % -- -- 04/24/212340 -- -- -- -- -- -- 157.5 cm (5' 2) 96.6 kg (213 lb) 04/24/212338 -- -- -- -- -- 99 % -- -- 04/24/212334 -- -- -- -- -- 99 % -- -- 04/24/212330 -- -- -- -- -- 99 % -- -- Gen: appears fatigued, mildly pale, NAD, resting in bed, answers questions in short sentences CV: RRR, no murmurs/rubs/gallops Pulm: CTAB, no wheezes/crackles, poor inspiratory effort and air movement throughout Uterus: gravid, nontender Ext: calves non tender, 1+ non pitting edema bilaterally, SCDs in place Neuro: DTRs 2+ and equal, no clonus Psych: flat affect Heart Rate Interpretation: Please see separate daily NST note. Detailed Morphology US ([place]) Date: 02/06/2021 GA at US: 23w 3d EFW: 597 gm (1 lb 5 oz) Growth appropriate for gestational age Amniotic fluid volume normal Placenta anterior fundal Presentation variable ?? Most Recent Growth Ultrasound Date: 04/16/2021 GA at US: 35w 4d EFW: 2720 gm (6 lb 0z) Growth appropriate for gestational age Amniotic fluid volume normal Placenta anterior fundal Labs Lab Results Component Value Date WBC 14.3 (H) 04/25/2021 HGB 10.6 (L) 04/25/2021 HCT 30.2 (L) 04/25/2021 MCV 87.8 04/25/2021 PLATELET 315 04/25/2021 Lab Results Component Value Date NA 124 (L) 04/25/2021 K 4.1 04/25/2021 CL 96 (L) 04/25/2021 CO2 16 (L) 04/25/2021 BUN 11 04/25/2021 CREATININE 0.76 04/25/2021 GLUCOSE 136 04/25/2021 CALCIUM 7.1 (L) 04/25/2021 ESTGFR 94 04/25/2021 Lab Results Component Value Date ALT 18 04/25/2021 AST 20 04/25/2021 ALKPHOS 88 04/25/2021 BILITOT 0.4 04/25/2021 ALBUMIN 3.4 04/25/2021 PROT 6.5 04/25/2021 Pre-eclampsia Labs Recent Labs 04/25/21 1215 04/25/21 0605 04/25/21 0109 04/25/21 0031 WBC 14.3* 13.4* -- 12.3* HGB 10.6* 10.6* -- 11.0* HCT 30.2* 30.5* -- 31.7* PLATELET 315 300 -- 298 AST 20 18 -- 20 ALT 18 19 -- 19 CREATININE 0.76 0.74 -- 0.73 UPROTCREAT -- -- 0.3 -- Labs ABO/RH O+ Hgb/Hct 11.8/34.4 Platelets 243 Rubella Immune Syphillis Negative GC/Chlam Negative Urine Culture Contaminant, negative HepBsAg Negative HIV Negative 1 hr GTT 93 3 hr GTT N/A GBS Collected 04/25 at and pending Assessment & Plan:Edwar Dominguez is a 46 y.o. at 33w4d (by 11 week US) being admitted forpre-eclampsia with severe features superimposed on chronic hypertension. ? 1. Preeclampsia with severe features superimposed on chronic hypertension: UPCR 0.1 at [facility]. Despite chronic kidney disease and chronic hypertension, she had urine protein assessment at the beginningof which was negative. BP: (126-147)/(75-81) since arrival, no severe-range BPs since admission. Previously received 5 mg, 10 mg IV hydralazine at OSH. Will continue home antihypertensive PO Labetalol 200 mg BID. Recommendation for admission until 34 weeks and delivery at that gestationalage pending clinical course. ? Labs: T&S, CBC, CMP ? Q4H BP checks ? Continue home PO Labetalol 200 mg BID ? Treat severe range sustained blood pressures >160/110 ? Will discontinue magnesium sulfate this morning given well controlled BPs and improved headache ?? 2. gestation ? Steroid status: S/p 1 dose betamethasone 12.5 mg 04/24 @ 2100, ordered for second dose ? Magnesium for neuroprotection: Not indicated ? Tocolysis Received: Not indicated ? Delivery Indications: Nonreassuring status, uncontrollable hypertension, maternal deterioration ? Delivery Plan: Given malpresentation currently, plan would be delivery with bilateral salpingectomy (tubal consent signed 04/25/21). If admitted until 34 weeks with spontaneous version, would plan induction. ? Consults obtained: Neonatology, Anesthesiology ? contraception plan: Bilateral salpingectomy or tubal if , if not feasible 6 week tubal ? Hemorrhage Risk: High, 2 IVs, active T&S ?? 2. Chronic kidney disease: Last creatinine 0.7. Previously as high as 1.13. ? Labs: creatinine, electrolytes, Cr 0.73, GFR 99 ? Avoid nephrotoxic agents ?? 3. Gestational diabetes: ? Continue fasting and postprandial glucose checks, glucose 141 on fasting CMP specimen, 237 on POCT BG check ? Continue 4 U NPH nightly. Due to elevated fasting glucose this morning (195), she was given another dose of 4u NPH this morning ? Sensitive SSI ordered for correctional. Keep 1 hour postprandial BG<140 ?? 4. Mild hyponatremia to 130 on admission, which could be in the setting of mild hyperglycemia or SIADH related to preeclampsia with severe features. Given patient is fatigued and nauseated, it may besymptomatic but it also is hard to differentiate this from signs and symptoms of preeclampsia. ? Will monitor with q6h CMP and consider administration of hypertonic saline if worsening or persistent. ? Could consider obtaining serum/urine osmolality to evaluate for SIADH if persistent. ? Q6H CMP ?? 5. Syncopal episode. Likely vasovagal but in the setting of possible prior arrhythmia during back surgery mentioned in records brings up the possibility of occult arrhythmia or cardiac source of syncope ? ECG as baseline today ? Plan for echocardiogram tomorrow (question os prior mitral regurgitation per limited medical records) ? Records requested from patient's PCP Dr. Cielo Goncalves in [facility] 6. Status ? Daily NST ? Last Growth US: 04/16/2021, had follow-up growth US this morning, report pending ? Presentation: Transverse with head to maternal left (04/25) ?? 7. care ? GBS status: GBS collected 04/25 and pending ? 1hr GTT: Early 1hr GTT 93, repeat GTT and 3hr GTT not seen in records, but carries diagnosis of GDM on 4 U NPH nightly ? TDaP: Not seen in records, ordered ? Contraception Plan: TBD, bilateral salpingectomy after waiting 72h from signing tubal consent ? Consents obtained: delivery with bilateral salpingectomy, ORT, opioids Patient seen and discussed with Maternal Medicine attending, Dr. Parikh. Mandie Aguilera MD, PGY-3 04/25/2021 11:00 am Associated attestation - Gus Parikh MD - 04/30/2021 6:37 AM EST Patient seen, chart reviewed, discussed with team and agree with resident note. MD Chris * Avelina Tapia MD - 04/25/2021 5:09 AM EST 04/25/21 0506 Nonstress Test, Fetus A HR (beats/min) 135 HR Variability moderate (amplitude range 6 to 25 bpm) HR Accelerations present HR Decelerations other (see comments) Contraction Frequency (Minutes) every 2-3 min on arrival but have dissipated with time and hydration Nonstress Test Interpretation Reactive, >32 weeks: two 15 bpm accelerations lasting 15 seconds Overall Impression Reassuring for gestational age Comments one area of discontinuous tracing which may be consistent with brief variable lasting 30 sec NST Times NST Start Time 2330 NST Stop Time 0116 I personally reviewed the heart rate tracing. The NST is reactive and the tracing is reassuring. AVELINA TAPIA MD * Leti Guerrero MD - 04/25/2021 3:33 AM EST Interval Antepartum Progress Note: Called to patient room by RN for concern regarding patient altered mental status and syncope while urinating on toilet. RN had a concern that this represented a seizure based on her body going somewhat limp and her arms falling to the side along with her head leaning to one side. At our presentation to bedside, she was alert and oriented, was able to state where she was and who she was. There wasno apparent postictal phase. She reports preceding nausea, sensation of impending syncope, feeling hot and shaky. She states she is feeling somewhat improved. Vitals were notable for normal BP, normal HR, O2 saturation 99%. She was transferred in a wheelchair back to bed and was feeling improved. A STAT mag level was obtained and her POCT blood glucose wasmeasured and was found to be 243. Her lungs were clear to auscultation and her reflexes were brisk,3+. Plan made to administer her 4 U NPH and recheck fasting BG at ~6 am. She then had a subsequent episode of nausea, lightheadedness and feeling similar to how she felt prior during micturation while she was having a second IV placed. We assessed her at the bedside andshe reported feeling nauseated and hot and shaky, her HR was in the 50s, and BP was 105/60. Given these findings, we attributed both of these episodes to vasovagal syncope and vasovagal presyncope. The symptoms she had and presentation were not consistent with seizure activity as was concern of RN. After this, she reported she continued to feel sleepy but the nausea and vasovagal symptoms improved. Her vitals after this episode were as follows.BP 130/74 Pulse 80 Temp 36.6 ??C (97.9 ??F) (Axillary) Resp 18 Ht 157.5 cm (5' 2) Wt 96.6 kg (213 lb) LMP 09/02/2020 SpO2 98% BMI 38.96 kg/m?? We discussed that this represented likely vasovagal syncope and presyncope given vital signs duringepisode observed and absence of true postictal phase. We will continue to monitor closely and reassess as needed. Leti Guerrero MD PGY-3 04/25/2021 Associated attestation - Avelina Tapia MD - 04/25/2021 5:05 AM EST I arrived at the room with Dr. Guerrero when patient was on the toilet having voided for first episode. Patient described feeling tired. However, patient was able to answer questions immediately. She did not have any tongue biting. We arrived within one minute of the episode beginning and the patient was not experiencing and seizure like activity on arrival and was not post-ictal. The second episode at the time of second IV placement was accompanied by nausea, lightheadedness and decrease in blood pressure which resolved with a cool cloth, completion of IV. Agree both episodes likely vagal in nature. Agree with plan for ongoing monitoring of blood sugar, mag level and symptoms. AVELINA TAPIA MD documented in this encounter H&P Notes * Avelina Tapia MD - 04/24/2021 10:11 PM EST Obstetrical Admission Note Referring Hospital: [facility] Referring Provider: Dr. Rosaura Coto Initial Care Provider (if early referral or co-managed by [facility]): N/A ID: Edwar Dominguez is a 46 y.o. at 33w4d gestation (by 11 week US) being admitted as a transfer from [facility] for preeclampsia with severe features superimposed on chronic hypertension HPI: Edwar reports she presented 04/24/2021 for a scheduled NST and at that time had a mildly elevated blood pressure. She had been feeling relatively well up until that time aside from some sinus congestion for which she took Sudafed. She was discharged home, and after that, she started to have increasing symptoms of malaise, nausea, dry mouth, sensation of generalized discomfort. She presented back to Labor and Delivery, where she was found to have a severe-range blood pressure of 160s and 170s systolic. She received 200 mg PO labetalol, 5 mg IV hydralazine, 10 mg IV hydralazine. She was initiated on IV magnesium sulfate 4 gm bolus with 2 g/hr continuous rate. Decision was made to transferthe patient given her medical comorbidities, gestational age after discussion with Dr. Olsen, accepting MFM at [facility]. At this time, Edwar is feeling ok. Her mouth is quite dry and she is asking for water. She reportssome nausea but has not vomited. She has been having some noticeable contractions since the start of the ambulance ride from [facility]. She denies headaches, vision changes, chest pain, shortness of breath, cough, abdominal pain, right upper quadrant pain, bleeding, leaking of fluid from vagina, swelling in the hands, face or legs, or leg pain. Presents today with her partner, Harry. This is their fourth child together. Expecting a female named Carmita. Desires tubal or bilateral salpingectomy if she has a for control. She did not previously sign a federal consent for for tubal ligation. Her has been complicated by: -- Chronic hypertension: Prior to on Losartan, metoprolol, and spironolactone, which she discontinued as soon as she realized she was . She has been on PO Labetolol 200mg BID since the beginning of . On bASA. She has had reassuring testing. -- Chronic kidney disease Stage 3a: Last creatinine 0.7, previously as high as 1.18. GFR 45-59, albumin/creatinine ratio <30. 24 hour urine protein negative on 11/09/2021. -- Gestational diabetes: Early 1-hr GTT 93, repeat not seen in records but was diagnosed with GDM and recently started on 4 U NPH nightly. -- Ulcerative colitis: Stable and well controlled on mesalamine. -- History of preeclampsia with first : Diagnosed at 35 weeks, followed by spontaneous PPROM resulting in progressive labor. -- History of hemorrhage: Did not require blood transfusion. She recalls that this was related to a cervical laceration which she states they put ice on my cervix. No other hemorrhages with her other deliveries. -- History of cholecystectomy -- History of inguinal hernia surgery (open) on right as teenager -- History of back surgery, complicated by an intraoperative heart arrhythmia, follow-up ECHO normal Review of Systems- Negative to complete review except as noted in the HPI. Obstetric Review of Systems Total Weight Gain this 7.258 kg (16 lb) Movement: normal Contractions: noticing some regular q2-5 mn regular uterine contractions Leaking: None Bleeding; none now Preeclampsia signs and symptoms: None Active Hospital Problems Diagnosis ??? Preeclampsia, severe Resolved Hospital Problems No resolved problems to display. Active Non-Hospital Problems Diagnosis ??? AMA (advanced maternal age) multigravida 35+ ??? Hypertension ??? Ulcerative colitis ??? History of premature rupture of membranes (PROM) in previous , currently , first trimester ??? CKD (chronic kidney disease) stage 3, GFR 30-59 ml/min ??? Acne vulgaris Past Medical History: Diagnosis Date ??? C. difficile colitis ??? CKD (chronic kidney disease) 2020 creatinine 1.18 ??? Hypertension 2006 labetalol now, metprolol, losartan, spironolactone preconception ??? Insulin resistance ??? Ulcerative colitis aspriso, no flares since 2019, GI in [facility] Past Surgical History: Procedure Laterality Date ??? CHOLECYSTECTOMY ??? COLONOSCOPY ??? INGUINAL HERNIA REPAIR Left ??? KNEE SURGERY ??? WISDOM TOOTH EXTRACTION OB History 8 Para 4 Term 3 1 AB 3 Living 4 SAB IAB Ectopic Multiple Live Births 4 # Outc Date GA Lbr [place]don/2nd Wgt Sex Del Anes PTL Lv 1 AB 2 AB 3 AB 4 1996 36w0d 2.835 kg (6 lb 4 oz) F Vag-Spont Yes Complications: History of premature rupture of membranes (PPROM) 5 Term 1998 40w0d 3.827 kg (8 lb 7 oz) M Vag-Spont Living Complications: Other Excessive Bleeding 6 Term 2001 40w0d 3.742 kg (8 lb 4 oz) M Vag-Spont No 7 Term 2005 40w0d 3.771 kg (8 lb 5 oz) M Vag-Spont Living 8 Current Medications Prior to Admission Medication Sig Dispense Refill Last Dose ??? labetaloL (Normodyne) 200 mg Tablet TAKE 1 TABLET BY MOUTH TWICE DAILY. THIS REPLACES METOPROLOL ??? triamcinolone (Kenalog) 0.1 % Ointment APPLY A SMALL AMOUNT TO SKIN TWICE DAILY ??? mesalamine ER (Apriso) 0.375 gram Capsule, Sust. Release 24 hr Take by mouth. ??? vit/iron fum/folic ac ( 1+1 ORAL) Take by mouth. ??? aspirin EC 81 mg Tablet, Delayed Release (E.C.) Take 81 mg by mouth daily. ??? lactobacillus rhamnosus, GG, (CULTURELLE) 10 billion cell Capsule Take 1 capsule by mouth daily. Allergies Allergen Reactions ??? Sulfamethoxazole Other reaction(s): joints swell ??? Trimethoprim Other reaction(s): joints swell ??? Diatrizoate Meglumine Rash Other reaction(s): Skin Rash ??? Hyoscyamine Other reaction(s): Skin Rash Family History Problem Relation Age of Onset ??? Hypertension Mother ??? Hypertension Father ??? Diabetes Maternal Grandmother ??? Diabetes Paternal Grandmother Social History Occupational History ??? Not on file Tobacco Use ??? Smoking status: Never Smoker ??? Smokeless tobacco: Never Used Vaping Use ??? Vaping Use: Never used Substance and Sexual Activity ??? Alcohol use: Not Currently ??? Drug use: Never ??? Sexual activity: Not on file Immunization History Immunization History Administered Date(s) Administered ??? Moderna Covid-19 Vaccine (100mcg/0.5ml) 06/18/2020, 07/16/2020 Last Set of Vitals: BP 147/81 Pulse 94 Temp 36.5 ??C (97.7 ??F) (Oral) Resp 16 Ht 157.5 cm (5' 2) Wt 96.6 kg(213 lb) LMP 09/02/2020 SpO2 98% BMI 38.96 kg/m?? Physical Exam Gen: AAO, appears tired, answering in short sentances Cardio: nl rhythm, S1, S2, no M/C/R/G Pulm: CTA BL, no W/C/R Abd: +BS, soft, NT, ND, gravid Ext: warm, well-perfused, no DAWNA or calf tenderness Neuro: grossly intact, patellar reflexes: +3 and ankle clonus: none Uterine Size: S=D Clinical EFW: 6 lb 5 oz Sterile Speculum Exam: Not indicated Cervix Exam: Dilation: 1 (04/25/21 0121) Effacement: 20 Station: -4 Cervical Position: Posterior Consistency: Medium Mora Score: 2 OB Examiner: Leti Guerrero Pelvis: proven to 8 lb 7 oz Presentations: Transverse with head to maternal left, spine presenting Heart Rate Interpretation: Baseline: 125, Variability: moderate, Accels: yes, Decels: none, Success: q3-5 Lab Results Component Value Date ABORH O Pos 04/25/2021 HCT 31.7 (L) 04/25/2021 HGB 11.0 (L) 04/25/2021 MCV 88.3 04/25/2021 HEPBSAG Negative 11/27/2020 RUBLIGG Positive 11/27/2020 GCAMP Negative 11/16/2020 CHLMGENE Negative 11/16/2020 AST 20 04/25/2021 ABO/RH O+ Hgb/Hct 11.8/34.4 Platelets 243 Rubella Immune Syphillis Negative GC/Chlam Negative Urine Culture Contaminant, negative HepBsAg Negative HIV Negative 1 hr GTT 93 3 hr GTT N/A GBS Collected 04/25 at and pending Detailed Morphology US ([place]) Date: 02/06/2021 GA at US: 23w 3d EFW: 597 gm (1 lb 5 oz) Growth appropriate for gestational age Amniotic fluid volume normal Placenta anterior fundal Presentation variable Most Recent Growth Ultrasound Date: 04/16/2021 GA at US: 35w 4d EFW: 2720 gm (6 lb 0z) Growth appropriate for gestational age Amniotic fluid volume normal Placenta anterior fundal Presentation variable Assessment & Plan Edwar Dominguez is a 46 y.o. at 33w4d (by 11 week US) being admitted for pre-eclampsia with severe features superimposed on chronic hypertension. We discussed risks and benefits of section with risks including but not limited to bleeding, infection, damage to surrounding tissues (bladder, bowel, ureters, fallopian tubes, ovaries, uterus, blood vessels, nerves), damage to fetus, blood clots to legs or lungs, wound separation or infection, increased healing time when compared to vaginal delivery, rare hysterectomy and future obstetric complications. She stated understanding of these risks and all her questions were answered. She signed the consent. We discussed that tubal ligation is permanent, cannot be reversed, and reversible methods, such as the IUD, are about as effective as tubal ligation. Women under the age of 30 experience high rates of regret after tubal ligation. If occurs it is more likely to be in the fallopian tube andthe patient should seek health care immediately. The patient desires a tubal ligation.Tubal ligation has a 1/200-1/300 failure rate, depending on the person's age, with younger women more likely to experience failure. She signed the federal tubal consent form and consent for delivery with salpingectomy. 1. Preeclampsia with severe features superimposed on chronic hypertension: UPCR 0.1 at [facility]. Despite chronic kidney disease and chronic hypertension, she had urine protein assessment at the beginningof which was negative. BP: (126-147)/(75-81) since arrival, no severe-range BPs since admission. Previously received 5 mg, 10 mg IV hydralazine. Will continue home antihypertensive PO Labetalol 200 mg BID. Discussed recommendation for admission until 34 weeks and delivery at that gestational age pending clinical course. ?? Labs: T&S, CBC, CMP ?? Q4H BP checks ?? Continue home PO Labetalol 200 mg BID ?? Treat severe range sustained blood pressures >160/110 ?? Continue IV magnesium sulfate 2 gm/hr x24 hrs or until clinically stable, pending clinical course 2. gestation ?? Steroid status: S/p 1 dose betamethasone 12.5 mg 04/24 @ 2100, ordered for second dose ?? Magnesium for neuroprotection: Not indicated ?? Tocolysis Received: Not indicated ?? Delivery Indications: Nonreassuring status, uncontrollable hypertension, ?? Delivery Plan: Given malpresentation currently, plan would be delivery with bilateral salpingectomy. If admitted until 34 weeks with spontaneous version, would plan induction. Discussed not typically offered to perform ECV for gestation, but this could be a possibility prior to i nduction of labor. ?? Consults obtained: Neonatology, Anesthesiology ?? contraception plan: Bilateral salpingectomy or tubal if , if not feasible 6 week tubal ?? Hemorrhage Risk: High, 2 IVs, active T&S 2. Chronic kidney disease: Last creatinine 0.7. Previously as high as 1.13. ?? Labs: creatinine, electrolytes, Cr 0.73, GFR 99 ?? Avoid nephrotoxic agents 3. Gestational diabetes: ?? Continue fasting and postprandial glucose checks, glucose 141 on fasting CMP specimen, 237 on POCT BG check ?? Continue 4 U NPH nightly, this was administered after admission given elevated blood glucose with plan to recheck fasting at 6 am, and administer SSI as needed ?? Sensitive SSI ordered 4. Mild hyponatremia to 130 on admission, which could be in the setting of mild hyperglycemia or SIADH related to preeclampsia with severe features. Given patient is fatigued and nauseated, it may besymptomatic but it also is hard to differentiate this from signs and symptoms of preeclampsia. ?? Will monitor with q6h CMP and consider administration of hypertonic saline if worsening or persistent. ?? Could consider obtaining serum/urine osmolality to evaluate for SIADH if persistent. ?? Q6H CMP 4. Sinus congestion: Afebrile, not clinically consistent with bacterial sinusitis. ?? PO Benadryl PRN 3. Status ?? Daily NST ?? Last Growth US: 04/16/2021, ordered for follow-up growth US for 04/25 ?? Presentation: Transverse with head to maternal left (04/25) 4. care ?? GBS status: GBS collected 04/25 and pending ?? 1hr GTT: Early 1hr GTT 93, repeat GTT and 3hr GTT not seen in records, but carries diagnosis of GDM on 4 U NPH nightly ?? TDaP: Not seen in records, ordered ?? Contraception Plan: TBD ?? Consents obtained: delivery with bilateral salpingectomy, ORT, opioids Opioid Risk Tool Female Male 1. Family history of Substance Abuse Alcohol [] 1 [] 3 Illegal Drugs [] 2 [] 3 Prescription Drugs [] 4 [] 4 2. Personal History of Substance Abuse Alcohol [] 3 [] 3 Illegal Drugs [] 4 [] 4 Prescription Drugs [] 5 [] 5 3. Age (suhail box if 16-45) [] 1 [] 1 4. History of Preadolescent Sexual Abuse [] 3 [] 0 5. Psychological Disease Attention Deficit Disorder, Obsessive Compulsive D/o, Bipolar, Schizophrenia [] 2 [] 2 Depression [] 1 [] 1 TOTAL: 0 Comments about ORT in relation to this patient: Opioid Risk Category: low risk 0-3 This patient was seen and discussed with Dr. Avelina Tapia, attending [employer]. Leti Guerrero MD PGY-3 04/25/2021 46 year old presents at 33w4d with CHTN and insulin requiring GDM presents in transfer withnew symptoms of fatgue/malaise and nausea in conjunction with severe elevations of blood pressure requiring IV tx at [facility]. On evaluation here, pt feel tired and is not very interactive. However, she answers questions appropriately. Her blood pressure is mildly elevated. Exam demonstrates clear lungs, regular heart rate, soft abdomen w/o RUQ tenderness. Reflexes 3+ s clonus. Labs reviewed and normal serum labs. Agree pt has evidence of severe pre-eclampsia by blood pressure criteria. Discussed timing of delivery and indications such as recurrent severe blood pressures or changes inmaternal or status. Given position of fetus, pt would need CS for delivery. Agree with plan for ongoing monitoring of blood sugars given hx of GDM and recent BMZ administration. Will continue magnesium and plan completion of BMZ course. Will plan anesthesia and ICN consultation AVELINA TAPIA MD documented in this encounter Miscellaneous Notes * Note - Yany Chin RN - 05/03/2021 2:16 PM EST This note was copied from a baby's chart. I was able to observe a session today. Mom is pumping every 3 hours and able to obtain 40 cc's a session. Baby latched and sustained for close to 10 minutes on each side. She had a deep latch, immediate let down from mom and many 1:1 suck swallows. Per the feeding guidelines she did not require a supplement. She was able to transfer 40 grams post weight. Mom will continue to pump after sessions and would like to be called to come in for breast feeding sessions. * Plan of Care - Suasna Murillo RN - 05/02/2021 7:03 PM EST OUTCOME EVALUATION NOTE: OUTCOME SUMMARY: Patient has been spending the majority of the day with her in the ICN. Bonding with baby. Pumping independently. BP remains with sysytolic in 150's. Plan for 600 mg dose tonight to make 1800mgtoday and then 600mg TID tomorrow. Irregular HR noted on assessment. EKG obtained. Pt reported she has had an irregular HR since age 13, but this had not been auscultated prior as an inpatient duringthis stay. Pain well controlled and managed per plan. Voiding well independently. Family-centered care provided. PLAN MOVING FORWARD: Continue to assess VS, fundus, and lochia per orders and PRN. Treat pain as needed. Monitor VS and intake/outputs. Labetalol 600mg TID. INDIVIDUALIZED FALL PREVENTION INTERVENTIONS: Patient-specific fall risk factors per assessment: [current deficits]: Post-op Assistance [level of assistance required for transfers and ambulation]: Independent. Wheelchair to ICN. Supervision [direct monitoring required during toileting and ADLs]: Independent. Will call prn for help OOB if feeling dizzy or weak. Surveillance [continuous indirect monitoring]: Rounding by RN. Call perez within reach. Aware of when to call nurse. Patient-specific fall prevention interventions for sensory deficits provided, if applicable: [X] N/A CPG GOAL OUTCOME EVALUATION: * Note - Yany Chin RN - 05/02/2021 6:59 PM EST This note was copied from a baby's chart. I briefly touched base with this mother. Per mom she has pumped per suggested guidelines and getting pretty good volumes. She has no needs or concerns at this time. can continue to support as needed. * Note - Mary Iniguez RN - 05/01/2021 2:00 PM EST This note was copied from a baby's chart. Met with Edwar at the bedside, she has been pumping every 2 hours during the day. She was not feeling well last night so was not able to pump much. Discussed that this is normal after surgery, and that she should just do the best she can. Did not observe a at this visit. Continue to follow closely Mary Iniguez RN, IBCLC [facility] * Note - Petrona Chang RN - 04/30/2021 8:22 PM EST This note was copied from a baby's chart. ASSESSMENT INPATIENT Encounter Date/Time: 04/30/2021 / 14:30 Baby's name: Baby Raina Gibson : 04/29/2021 Time of : 9:49 AM Mode of Delivery: Lower Segment Transverse Gestational Age: Gestational Age: 34w1d Baby age: 34 hours Birthweight: 6 lb 1 oz (2750 g) Weights since : Patient Vitals for the past 168 hrs: Weight 04/29/21 1000 2.75 kg (6 lb 1 oz) 04/29/21 0949 2.75 kg (6 lb 1 oz) Overall weight loss: 0% MATERNAL INFO: Edwar Dominguez [id number] 1975 G 8 P 5 FOGuillermina Mcdonald Significant History: Previous experience: Yes--BF her previous from three months to over a year Breast Surgery: No Breast Changes During : Yes Breast Exam : Size: Medium large Shape: Rounded Venous Pattern: Within Normal Limits Milk Production: Colostral Phase Normal Touched base with mom just after noon time pumping session, she had expressed over 20 milliliters at her first pumping session. Nipple Exam : Normal everted Color: Bromide Compressible: Yes Trauma: Edwar reports no nipple discomfort while pumping and at this breast feeding session. Nipple tissue appears intact. Nipple Care Management: Work to achieve an asymmetric chin led latch with baby taking in more areolar tissue. Has olive oilfor pumping comfort. OBSERVATION: INFANT ASSESSMENT: Oral Motor Examination/Function: Mouth: Normal Jaw: Normal Lips: Normal Gums: Normal Tongue: Normal resting position can extend over lower lip and gum line. Palate: Normal Frenulum: Not assessed this session Coordination of Infant Suck: Smooth/rhythmic Position: Right: Not observed this session Left: Cradle hold Rooting: Normal Attachment: Adequate Swallow: Normal/Coordination Suck:Swallow Ratio: WNL for current colostrum supply. Sucking Burst Pattern: Fed about five minutes with long drawing nutritive pattern and did elicit some swallows and then self detached and burped but remained awake and alert. After a few minutes cuedinterest and re-latched and fed another eight minutes consistently with long drawing suckles of 10 or more with intermittent swallows consistently noted. JANNIE Mcdonald inquiring if baby could return to birthing pavilion to stay with Edwar as he feels she is breast feeding as well as some of the couples full term babies did. Discussed the BP protocol of 35 week gestation infants or older are allowed to stay with mother due to the risk of apnea spells inpreterm infants. Bedside RN had ICN provider come speak to parents about dad's request. PATIENT EDUCATION AND RECOMMENDATIONS: Benefits of frequent maternal-infant Skin to Skin (STS) contact at early feeding cues every 2 - 3 hours, awaken as needed Optimal positioning: Gmyl-mj-iaphgx positioning Iwxf-um-cvvbh technique Nutritive vs non-nutritive sucking Importance of consistently breaking suction, if infant does not self-detach Breast massage and manual expression techniques reviewed and encouraged around pumping sessions Breast massage during , alternated with breast compression during pauses to help keep baby engaged if she becomes sleepy/pauses during feed Strategies to manage physiological engorgement reviewed Edwar will need to also pump her breast milk right after feeding sessions with a goal of eight breast pumping sessions in 24 hours. She should pump for fifteen minutes per session, pump both breastsat the same time and use a hospital grade iValidate.mehony breast pump for pumping sessions. Breast massage and hand expression before and during pumping sessions will help with milk release Edwar may apply moist heat to her breasts a few minutes prior to pumping and ice packs after pumping for about ten minutes as needed to help relieve breast engorgement. [place] oil to nipples prior to pumping Frequent and prolonged maternal-infant skin to skin contact Feeding Plan: Edwar is hoping to breast feed Close support and follow up Written contact information for [facility] prn Pamphlets Provided Providing breast milk for your baby in the intensive care nursery CDC recommendations for breast pump part cleaning and sterilization Breast engorgement Colostrum care Breast feeding your premature On-going Concerns: Maternal history of chronic hypertension, prior to was on Losartan, metoprolol and spironolactone which she discontinued when realized she was . On Labetolol 200 mg BID since beginning of and also on baby aspirin. Maternal history of chronic kidney disease, gestational diabetes, taking insulin. Had pre-eclampsia, with severe features superimposed on chronic hypertension, delivery for breech, failed ECV Delayed adequate feeding at breast related to Premature delivered at 34-1/7 weeks gestation requiring intensive care nursery admission Monitor infant growth and nutrition closely 60 minutes were spent with this family, providing assessment, assistance, education, and support. Mother voices understanding of education and recommendations. Petrona Chang RN, IBCLC [facility] * Plan of Care - Arlene Ignacio RN - 04/30/2021 6:43 PM EST OUTCOME EVALUATION NOTE: OUTCOME SUMMARY: VSS. OOB ambulating independently. Voiding with no difficulty. Taking ibuprofen and acetaminophen for post operative pain relief with good results. Abd incision C&H, well approximated, no drainage noted. Using W/C to go to NICU. PLAN MOVING FORWARD: Continue with present POC INDIVIDUALIZED FALL PREVENTION INTERVENTIONS: Patient-specific fall risk factors per assessment: [current deficits]: hx syncope Assistance [level of assistance required for transfers and ambulation]: independent Supervision [direct monitoring required during toileting and ADLs]: n/a Surveillance [continuous indirect monitoring]: n/a Patient-specific fall prevention interventions for sensory deficits provided, if applicable: CPG GOAL OUTCOME EVALUATION: * Plan of Care - Candace Spivey RN - 04/30/2021 6:33 AM EST OUTCOME EVALUATION NOTE: OUTCOME SUMMARY: Day 1 Post pCS and stable. VSS and other assessments were WNL Bleeding WNL and Fundus is firm and at the umbilicus Ambulating minimally to the bathroom and around the room. Oneill still in place and draining copiously. Mag still infusing @ 2g/hr. Pain managed round the clock with Tylenol and Toradol. Pumping is yet to be initiated. Attentive to needs, bonding well with infant. PLAN MOVING FORWARD: Continue current plan of care INDIVIDUALIZED FALL PREVENTION INTERVENTIONS: Patient-specific fall risk factors per assessment: [current deficits]: As documented Assistance [level of assistance required for transfers and ambulation]: Independent Supervision [direct monitoring required during toileting and ADLs]: Independent Surveillance [continuous indirect monitoring]: Purposeful rounding, call perez in reach Patient-specific fall prevention interventions for sensory deficits provided, if applicable: N/A CPG GOAL OUTCOME EVALUATION: * L&D Delivery Note - Viridiana Wharton MD - 04/29/2021 11:17 AM EST Images from the original note were not included. Patient name: Edwar Dominguez Date of : 1975 Date of visit: 04/29/2021 Section Delivery Note Edwar Dominguez is a 46 y.o. woman who was admitted for preeclapmsia with severe feature superimposed on chronic hypertension at 33w4d. Her was also complicated by CKD, stage 3a, GDMA2, ulcerative colitis, hx of preeclampsia with 1st , Hx of hemorrhage, prior abdominal history. She had a successful ECV on HD#5. After, her induction of labor was started at 34w0d with oneill balloon and pitocin. She was on Mg for pre-eclampsia w/ SF and penicillin for GBS+. On HD#6, she was found in L transverse lie by bedside ultrasound at 5/100/no presenting part. Her membrane was intact. The decision was made to proceed urgently with a primary low transverse section secondary to malpresentation. Patient was in agreement and also desired bilateral salpingectomy. Consents previously signed. Patient underwent uncomplicated primary lower segment transverse section with bilateral salpingectomy. Viable female infant. APGARS of 7 and 9, assigned by ICN staff. Weight pending. Cord blood & gases were taken. Quantitative blood loss estimated at 1745ccs at the end of the case. Please see op note for further details. Dr. Dodge was present for the entire delivery. Viridiana Wharton MD, PGY1 Obstetrics and Gynecology 04/29/2021 Information for the patient's : [facility] Baby [facility] [[id number]] DELIVERY SUMMARY FOR Baby Raina Dominguez (please note there is a separate summary for each fetus) 04/29/2021 9:49 AM by Lower Segment Transverse Sex: female Gestational Age: 34w1d Labor Events labor?: Yes GBS colonized: positive GBS prophylaxis: adequate steroids: Full Course Cervical ripening type: Oneill Rupture date/time: 04/29/2021 0947 Rupture type: artificial rupture of membranes Fluid color: clear Labor onset type: induction of labor Induction methods: Oxytocin, Oneill/EASI Labor onset date/time: 04/29/2021 0828 Maternal Delivery Complications: preeclampsia with severe features Maternal procedures with delivery: tubal ligation Labor Event Times Labor onset date/time: 04/29/2021 0828 Mother Delivery Episiotomy: None Perineal lacerations: None Surgical or additional est. blood loss (mL): 0 Combined est. blood loss (mL): 0 OB OR Quantitative Blood Loss Totals 04/29/21 0828 - 04/29/21 1117 None Delivery (Ariel) Delivery Date: 04/29/21 Delivery Time: 9:49:00 AM Sex: Female Presentation: Transverse Position: Left Attempted ?: No Delivery Type: Delivery Type (Specific): Lower Segment Transverse Major Indications - : malpresentation Shoulder Dystocia Shoulder dystocia present?: No Delivery Information Delivery Location: OR Delivering Clinician: Kilo Dodge MD ICN Staff Present: Yes Other Personnel: Provider Role Miguelina Estrella, lagging machine operator Nurse Kilo Dodge MD Lighting Engineering Technician Charleen Heredia, lagging machine operator Assist Mandie Aguilera MD Resident Viridiana Wharton MD Resident Tata Sparks RN Registered Nurse Anesthesia Method: Spinal Cord Vessels: 3 Vessels Complications: None Cord Blood Disposition: Lab Gases Sent?: Yes Cord Insertion: eccentric Assessment & APGARS Living status: Living Apgars 1 Minute: 5 Minute: 10 Minute 15 Minute 20 Minute Skin Color: 1 1 Heart Rate: 2 2 Reflex Irritability: 1 2 Muscle Tone: 2 2 Respiratory Effort: 1 2 Total: 7 9 Apgars Assigned By: CLAUDIA JAQUEZ DO Resuscitation Method: Suctioning, PPV Suctioning Method: NG catheter, bulb syringe [facility], no DCC. d/s/s, HR>100, poor respiratory Maternal Feeding and Skin to Skin No data filed Medications Medications Given: vitamin K, erythromycin Measurements No data filed Placenta Date and Time: 04/29/2021 9:51:00 AM Removal: Expressed Labor Length No data filed Associated attestation - Kilo Dodge MD - 04/29/2021 1:52 PM EST I was present and supervising during the section procedure. I agree with the description of the procedure as outlined. Kilo Dodge MD 04/29/21 .now * Op Note - Viridiana Wharton MD - 04/29/2021 9:42 AM EST [facility] Patient Name: Edwar Dominguez : [id number] MR#: [id number] Case Date: 04/29/2021 Surgeon: Surgeon(s) and Role: * Kilo Dodge MD - Primary * Mandie Aguilera MD - Resident * Viridiana Wharton MD - Resident Preoperative diagnosis: L transverse lie, 34w1d, pre-eclampsia with severe feature superimposed on chronic hypertension Postoperative diagnosis: L transverse lie, 34w1d, pre-eclampsia with severe feature superimposed onchronic hypertension, s/p primary lower segment transverse delivery, sp bilateral salpingectomy. Procedure(s) (LRB): @ DELIVERY (WRVU 16.13) (N/A) @Bilateral Salpingectomy Findings: Viable female infant, 7 and 9, pH 7.25, R sided posterior subserosal ~1.5 cm, normal fallopian tubes, ovaries, uterus. Anesthesia: Anesthesia type not filed in the log. Estimated Blood Loss: * No values recorded between 04/29/2021 9:42 AM and 04/29/2021 11:02 AM * OB OR Quantitative Blood Loss Totals 04/29/21 0828 - 04/29/21 1148 None QBL 1745 cc Specimens removed during surgery: placenta, bilateral fallopian tubes Drains: oneill catheter Surgical Closure: Primary Closure - skin incision is completely closed without any wires, cari, drains or other devices Disposition: returned to birthing room Condition: doing well without problems (Please see the Surgical Encounter Summary for any Implant and Specimen details pertinent to this patient.) HPI/Surgical Indications: Edwar Dominguez is a 46 y.o. woman who was admitted for preeclapmsiawith severe feature superimposed on chronic hypertension at 33w4d. Her was also complicated by CKD, stage 3a, GDMA2, ulcerative colitis, hx of preeclampsia with 1st , Hx of postpart um hemorrhage, prior abdominal history. ?? For known malpresentation, she had a successful ECV on HD#5. After, her induction of labor was started at 34w0d with oneill balloon and pitocin. She was on Mg for pre-eclampsia w/ SF and penicillin for GBS+. On HD#6, for concern for unstable lie, patient had bedside ultrasound and she was found in Ltransverse lie at 5/100/no presenting part. Her membrane was intact. The decision was made to proceed urgently with a primary low transverse section secondary to malpresentation. Patient wasin agreement and also desired bilateral salpingectomy. Consents previously signed. Procedure Description: The patient was taken to the Operating Room where spinal anesthesia was administered and found to be adequate. The patient was given 2 gm of Ancef & 500 gm Azithromycin. The patient was placed inthe dorsal supine position with a leftward tilt. Oneill catheter was placed and noted to drain clearyellow urine. SCDs were confirmed to be on and running. The patient was then prepped and draped in the usual sterile fashion. A pre-operative huddle was done to identify patient, procedure and personnel. After spinal anesthesia was confirmed adequate, a Pfannenstiel skin incision was made with a scalpel and carried through to the underlying layer of fascia. The fascia was nicked in the midline and the incision was extended bluntly laterally. The rectus muscles were then in the midline andthe peritoneum identified and entered digitally. The peritoneal incision was then extended superiorly and inferiorly to the bladder reflection. The bladder blade was inserted to protect the underlying bladder. The lower uterine segment incised in atransverse fashion with a scalpel. Amniotomy performed for clear fluid. The hysterotomy was extended with upward and downward traction. A hand was inserted into the uterus. The bladder blade was removed. The fetus was confirmed in L transverse lie. was rotated and delivered breech with fundal pressure applied to facilitate delivery of infant. The head and shoulders delivered easily. No nuchal cord was present. A live born female was delivered. The cord was doubly clamped andcut. The was handed off to waiting pediatricians, who assigned Apgars of 7 and 0. Cord gases& cord blood were sent. IV Pitocin was initiated to facilitate uterine contractions. The placenta was expressed and removed manually, and the uterus was cleared of all clots and debris. The uterus was exteriorized. The uterine incision was repaired in 2 layers with 0-vicryl in a continuous locked fashion. The third layer of the same suture was used to imbricate the two layers. Inspection of the uterine incision revealed one single area that required a single lyyucz-if-piwor. Examination of the pelvis revealed normal uterus, tubes and ovaries. Excellent hemostasis was appreciated. The right fallopian tube was identified and elevated with two Gabe clamps. The Ligasure was usedto cauterize the mesosalpinx from the distal end of the tube and separate the tube from the surrounding tissue. This was continued along the mesosalpinx until the uterine cornua where the tube was cauterized across the right cornua and from the uterus. The left fallopian tube was removed in the same manner. Oozing at R mesosalpinx was noted and cauterized. Hemostasis was confirmed bilaterally. Both tubes were sent to pathology. The gutters were cleared of all clots and debris. The uterus was placed back into the abdominal cavity. The hysterotomy was checked again and found to be hemostatic. The rectus muscles and subfascialtissue were also found to be hemostatic. The fascia was reapproximated with 0-vicryl in a running fashion. The subcuticular space was well irrigated. The subcuticular space was loosely reapproximatedwith 2-0 plain gut suture. The skin was closed with 4-0 Monocryl in a subcuticular fashion. Steriledressings were applied over the incision. The vagina was cleared of all clots. The patient tolerated the procedure well and were in satisfactory condition at its conclusion. Sponge, lap and needle counts were correct times two at case close. The patient was taken back to her room in stable condition. Prophylactic antibiotics: 2 g Ancef & 500 mg Azithromycin given intra-op Intra-operative medications: IV Pitocin DVT [facility] was present and participated for the entire procedure without any conflicting clinical responsibilities. Surgical Infection Prevention Bundle Used? Yes Obstetric Infection Bundle: Case Acuity: Urgent/Emergent case Chlorhexidine shower night before surgery?: (not recorded) Chlorhexidine shower morning of surgery on BP?: (not recorded) 2 % Chlorhexadine-alcohol skin prep: Yes Vaginal prep povidone -iodine scrub: Yes Pre op IV antibiotics: Ancef and Other: Azithromycin Preop antibiotics given between 15-60 minutes prior to incision? Yes Evidence of chorioamnionitis: No Intra-op antibiotic re-dose (for surgery length >3 hours or EBL >1500cc): No Closure of subcutaneous tissue > 2 cm: Yes Subcuticular skin closure: Yes Viridiana Wharton MD, PGY1 Obstetrics and Gynecology 04/29/2021 Associated attestation - Kilo Dodge MD - 04/29/2021 1:51 PM EST Attestation: Case Date: 04/29/2021 I was present and I participated during the entire procedure (does not need to include opening and closing). Kilo Dodge MD 04/29/2021 1:51 PM * Initial Assessments - Mora oCto RN - 04/27/2021 2:39 PM EST Office of Care Management Initial Assessment MORA COTO RN reviewed record and discussed patient with Care Team. Source of Information: Team, medical record, and spoke with patient by phone. Introduced self/reviewed role; services accepted. Plans to name baby: Paige Dominguez Reason for Hospitalization: 46 y.o.?? at 33w6d??gestation (by 11 week US)??being admitted asa transfer from [facility]??for preeclampsia with severe features??superimposed on chronic hypertension. Last COVID test date and time: Lab Results Component Value Date [id number] Not Detected 04/24/2021 Past medical History: Past Medical History: Diagnosis Date ??? C. difficile colitis ??? CKD (chronic kidney disease) 2020 creatinine 1.18 ??? Hypertension 2006 labetalol now, metprolol, losartan, spironolactone preconception ??? Insulin resistance ??? Ulcerative colitis aspriso, no flares since 2019, GI in [facility] Hospitalizations Within the Past 30 Days: no Anticipated Length Of Stay (If known): Patient will likely discharge 2-3 days after delivery of . Delivery planned to be at 34 weeks (tomorrow). Current Decision-Making Capacity: Patient has full decision making capacity Advance Care Planning: Patient is full code. No Advanced Directives on file Current Coping/Education/Information Needs: Confirms that providers have been good about communicating information to them and denies current questions. 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 Current DME: none DME Needed at DC: Will need breast pump Home Address (confirmed) as: [address] [place] [phone] Social & Family Supports: Patient's partner, Harry, is employed as a farm machinery assembler. They have a stable home, and have clothing/items. They have local support. Community Resources being provided currently: Patient given information about [facility]. Although she will be primarily travelling back and forth to home while her baby is in the ICN, she states she may use [facility] some of the time. She is also interested in a WIC referral. Declined needing gas cards. Behavioral Health History: Denies Substance Use/Abuse: (confirmed by chart review) Social History Tobacco Use Smoking Status Never Smoker Smokeless Tobacco Never Used Social History Substance and Sexual Activity Alcohol Use Not Currently Social History Substance and Sexual Activity Drug Use Never Other Pertinent/Service Specific Information: No Health/Prescription Coverage: Primary Insurance: MEDICAID [place] Secondary Insurance: no Prescription Coverage: [place] Medicaid Preferred Pharmacy: No Pharmacies Listed Primary Care Provider: Cielo Goncalves MD [phone], Infant's PCP is undecided. Patient/Caregiver Goals of Treatment: To discharge home when medically stable. Patient is scheduledfor delivery of her infant at 34 weeks. Potential Needs for Transition of Care: Patient will need breast pump and WIC referral Agency Referrals: Patient has accepted [facility] referral for her (home address has been verified). Transportation: Patient has car seat and ride home Anticipated Barriers to Discharge/Special Considerations: No Assessment: 46 y.o.?? at 33w6d??gestation (by 11 week US)??[facility]for preeclampsia with severe features??superimposed on chronic hypertension. Patient with no apparent RNCM/SW needs at this time. No housing, transportation, insurance, resources concerns identified at this time. Supports in place to achieve a safe post-hospital transition. No identified barriers to accessing necessary care and/or follow-up after discharge Plan: Patient to discharge home or to [facility] when medically stable. Follow up with [facility]. No identified barriers to accessing necessary care and/or follow-up after discharge. A member of the Care Management team will continue to monitor progress, follow for continuity of care and assist with transition of care planning. MORA COTO RN Case Systems Architecture Analyst of Care Management Pager: [phone] Ext: [phone] * Consult Note - Bright Waller MD - 04/26/2021 11:58 AM EST Requested by Zara Olsen MD to provide a consult to Edwar Dominguez and discuss the anticipatedevaluation and management of an born at 33 weeks gestation. Edwar is a 46 y/o G 8 P 3134 O+/Ab negative/Rubella immune/HBsAg negative/HIV negative/Syphilis negative/GBS pending/GC negative/Chlamydia negative women at 33 weeks gestation and admitted to the [facility] due to pre-Eclampsia in the setting of cHTN. OB plan is for IOL or C/S (if still transverse) in 2 days at 34w0d. has been complicated by -- Chronic hypertension: Prior to on Losartan, metoprolol, and spironolactone, which she discontinued as soon as she realized she was . She has been on PO Labetolol 200mg BID since the beginning of . On bASA. She has had reassuring testing. -- Chronic kidney disease Stage 3a: Last creatinine 0.7, previously as high as 1.18. GFR 45-59, albumin/creatinine ratio <30. 24 hour urine protein negative on 11/09/2021. -- Gestational diabetes: Early 1-hr GTT 93, repeat not seen in records but was diagnosed with GDM and recently started on 4 U NPH nightly. -- Ulcerative colitis: Stable and well controlled on mesalamine. -- History of preeclampsia with first : Diagnosed at 35 weeks, followed by spontaneous PPROM resulting in progressive labor. -- History of hemorrhage: Did not require blood transfusion. She recalls that this was related to a cervical laceration which she states they put ice on my cervix. No other hemorrhages with her other deliveries. -- History of cholecystectomy -- History of inguinal hernia surgery (open) on right as teenager -- History of back surgery, complicated by an intraoperative heart arrhythmia, follow-up ECHO normal I met with Edwar Dominguez. Her was at home. They are anticipating the of a daughter Ant Olvera. She is planning on her . We also discussed that parents are considered to be part of the care team and are welcome in the ICN at all times. We discussed the general care and management of an infant born at 33 weeks gestation, including respiratory distress, feeding immaturity. We also discussed the potential need for procedures including intubation and umbilical catheter placement. She had no further questions, and I reassured her that a member of the ICN team would be available to come back and address any further questions regarding the care of her daughter Bright Waller MD 04/26/2021 documented in this encounter Plan of Treatment Not on file documented as of this encounter Procedures Procedure Name Priority Date/Time Associated Diagnosis Comments ZIOPATCH 48 HRS-15 DAYS Routine 05/05/19 4:36 PM EST History of cardiac arrhythmia EKG 12-LEAD STAT 05/02/2021 11:14 AM EST History of cardiac arrhythmia HEMOGRAM Routine 05/02/2021 4:35 AM EST DIFFERENTIAL, AUTOMATED Routine 05/03/19 4:35 AM EST HC CREATININE Routine 05/02/2021 4:35 AM EST HC CBC,PLT & AUTO DIFF Routine 4:35 AM EST HC ASPARTATE AMINOTRANSFERASE (AST) Routine 05/02/2021 4:35 AM EST HEMOGRAM Routine 05/01/2021 3:15 AM EST DIFFERENTIAL, AUTOMATED Routine 05/02/19 3:15 AM EST HC CREATININE Routine 05/01/2021 3:15 AM EST HC CBC,PLT & AUTO DIFF Routine 2 3:15 AM EST HC ASPARTATE AMINOTRANSFERASE (AST) Routine 05/01/2021 3:15 AM EST POCT GLUCOSE Routine 04/30/2021 7:58 PM EST POCT GLUCOSE Routine 04/30/2021 9:53 AM EST POCT GLUCOSE Routine 04/30/2021 5:52 AM EST HEMOGRAM Routine 04/30/2021 5:10 AM EST DIFFERENTIAL, AUTOMATED Routine 05/01/19 5:10 AM EST HC CREATININE Routine 04/30/2021 5:10 AM EST HC CBC,PLT & AUTO DIFF Routine 2 5:10 AM EST HC ASPARTATE AMINOTRANSFERASE (AST) Routine 04/30/2021 5:10 AM EST HC HEMOGRAM Routine 04/29/2021 2:08 PM EST SPECIMEN TO PATHOLOGY Routine 04/29/2021 11:02 AM EST SPECIMEN TO PATHOLOGY Routine 04/29/2021 11:02 AM EST SURGICAL PATHOLOGY REPORT Routine 04/29/2021 9:51 AM EST HEMOGRAM Routine 04/29/2021 8:50 AM EST DIFFERENTIAL, AUTOMATED Routine 04/30/19 22 8:50 AM EST GREEN TUBE HOLD Routine 04/29/2021 8:50 AM EST LAVENDER TUBE HOLD Routine 04/29/2021 8: 50 AM EST MAGNESIUM Routine 04/29/2021 8:50 AM EST COMPREHENSIVE METABOLIC PANEL Routine 04/29/2021 8:50 AM EST POCT GLUCOSE Routine 04/29/2021 7:47 AM EST HEMOGRAM Routine 04/28/2021 9:30 PM EST DIFFERENTIAL, AUTOMATED Routine 04/29/19 22 9:30 PM EST HC CBC,PLT & AUTO DIFF Routine 9:30 PM EST COMPREHENSIVE METABOLIC PANEL Routine 04/28/2021 9:30 PM EST TYPE AND SCREEN VALIDITY Routine 022 9:29 PM EST ABORH RECHECK STATUS Routine 04/28/2021 9:29 PM EST ABO/RH TYPING Routine 04/28/2021 9:29 PM EST ANTIBODY SCREEN Routine 04/28/2021 9:29 PM EST HC ABO-MICROTITER Routine 04/28/2021 9:2 9 PM EST POCT GLUCOSE Routine 04/28/2021 6:53 PM EST POCT GLUCOSE Routine 04/28/2021 4:57 PM EST POCT GLUCOSE Routine 04/28/2021 11:06 AM EST US GRAVITY PROSPECTING SUPERVISOR (SYNC) Routine 04/28/2021 10:51 AM EST HEMOGRAM Routine 04/28/2021 10:40 AM EST DIFFERENTIAL, AUTOMATED Routine 04/29/19 22 10:40 AM EST HC CBC,PLT & AUTO DIFF Routine 10:40 AM EST COMPREHENSIVE METABOLIC PANEL Routine 04/28/2021 10:40 AM EST POCT GLUCOSE Routine 04/28/2021 5:43 AM EST HEMOGRAM Routine 04/27/2021 10:20 PM EST DIFFERENTIAL, AUTOMATED Routine 04/28/19 10:20 PM EST HC CBC,PLT & AUTO DIFF Routine 10:20 PM EST COMPREHENSIVE METABOLIC PANEL Routine 04/27/2021 10:20 PM EST POCT GLUCOSE Routine 04/27/2021 8:01 PM EST POCT GLUCOSE Routine 04/27/2021 2:01 PM EST POCT GLUCOSE Routine 04/27/2021 9:35 AM EST HEMOGRAM Routine 04/27/2021 9:04 AM EST DIFFERENTIAL, AUTOMATED Routine 04/28/19 9:04 AM EST HC CBC,PLT & AUTO DIFF Routine 9:04 AM EST COMPREHENSIVE METABOLIC PANEL Routine 04/27/2021 9:04 AM EST POCT GLUCOSE Routine 04/27/2021 5:33 AM EST SCAN, PERIPHERAL BLOOD Routine 9:00 PM EST HEMOGRAM Routine 04/26/2021 9:00 PM EST DIFFERENTIAL, AUTOMATED Routine 04/27/19 9:00 PM EST HC CBC,PLT & AUTO DIFF Routine 9:00 PM EST COMPREHENSIVE METABOLIC PANEL Routine 04/26/2021 9:00 PM EST POCT GLUCOSE Routine 04/26/2021 7:44 PM EST POCT GLUCOSE Routine 04/26/2021 2:53 PM EST POCT GLUCOSE Routine 04/26/2021 10:33 AM EST ECHO COMPLETE Routine 04/26/2021 9:37 AM EST Severe pre-eclampsia in third trimester History of cardiac arrhythmia Stage 3a chronic kidney disease POCT GLUCOSE Routine 04/26/2021 5:51 AM EST HEMOGRAM Routine 04/26/2021 5:50 AM EST DIFFERENTIAL, AUTOMATED Routine 04/27/19 5:50 AM EST HC CBC,PLT & AUTO DIFF Routine 5:50 AM EST COMPREHENSIVE METABOLIC PANEL Routine 04/26/2021 5:50 AM EST COMPREHENSIVE METABOLIC PANEL Routine 04/26/2021 12:24 AM EST HC OSMOLALITY URINE Routine 04/25/2021 9 :36 PM EST POCT GLUCOSE Routine 04/25/2021 8:58 PM EST HC OSMOLALITY Routine 04/25/2021 7:10 PM EST COMPREHENSIVE METABOLIC PANEL Routine 04/25/2021 7:10 PM EST HEMOGRAM Routine 04/25/2021 6:25 PM EST DIFFERENTIAL, AUTOMATED Routine 04/26/19 6:25 PM EST HC CBC,PLT & AUTO DIFF Routine 6:25 PM EST EKG 12-LEAD Routine 04/25/2021 5:29 PM EST Severe pre-eclampsia in third trimester POCT GLUCOSE Routine 04/25/2021 1:53 PM EST HEMOGRAM Routine 04/25/2021 12:15 PM EST DIFFERENTIAL, AUTOMATED Routine 04/26/19 12:15 PM EST HC CBC,PLT & AUTO DIFF Routine 12:15 PM EST COMPREHENSIVE METABOLIC PANEL Routine 04/25/2021 12:15 PM EST POCT GLUCOSE Routine 04/25/2021 10:06 AM EST US OB FOLLOW UP Routine 04/25/2021 9:52 AM EST POCT GLUCOSE Routine 04/25/2021 9:07 AM EST POCT GLUCOSE Routine 04/25/2021 6:22 AM EST HEMOGRAM Routine 04/25/2021 6:05 AM EST DIFFERENTIAL, AUTOMATED Routine 04/26/19 6:05 AM EST HC CBC,PLT & AUTO DIFF Routine 6:05 AM EST COMPREHENSIVE METABOLIC PANEL Routine 04/25/2021 6:05 AM EST HC MAGNESIUM, SERUM STAT 04/25/2021 3 :50 AM EST POCT GLUCOSE Routine 04/25/2021 3:13 AM EST HC PROTEIN, QUANTITATIVE, URINE Routine 04/25/2021 1:09 AM EST TYPE AND SCREEN VALIDITY Routine 022 12:31 AM EST ABORH RECHECK STATUS Routine 04/25/2021 12:31 AM EST HEMOGRAM Routine 04/25/2021 12:31 AM EST DIFFERENTIAL, AUTOMATED Routine 04/26/19 12:31 AM EST ABO/RH TYPING Routine 04/25/2021 12:31 AM EST HC CBC,PLT & AUTO DIFF Routine 12:31 AM EST ANTIBODY SCREEN Routine 04/25/2021 12:31 AM EST HC ANTIBODY DETECTION,CAPTURE-R Routine 04/25/2021 12:31 AM EST MAGNESIUM Routine 04/25/2021 12:31 AM EST COMPREHENSIVE METABOLIC PANEL Routine 04/25/2021 12:31 AM EST GROUP B STREPTOCOCCUS SCREEN Routine 04/24/2021 11:59 PM EST RAPID COVID-19 PCR ([facility]) Routine 04/24/2021 11:59 PM EST HC GROUP B STREP SCREEN Routine 04/25/19 11:59 PM EST [place] Fallopian Tube, (47442) @ DELIVERY (WRVU 16.13) documented in this encounter Results * Ziopatch 48 Hrs-15 Days (05/04/2021 4:36 PM EST) Anatomical Region Laterality Modality Other Narrative 05/29/2021 1:03 PM EDT [facility] ? Zio Patch? Ambulatory Cardiac Event Monitor Report Indication: personal history of other diseases Duration of recording - 13 days 16 hours (after removing artifact) Summary Data Predominant rhythm - sinus rhythm with very limited diurnal variation Minimum sinus rate 60 bpm Maximum sinus rate 134 bpm Average heart rate was 82 bpm Atrial fibrillation was not seen. High degree AV block was not seen. Pauses were not seen. Ectopic beats Rare atrial premature beats (APBs) (<1%) Rare ventricular premature beats (VPBs) (<1%) 2 runs of SVT were detected with the longest being 6 beats 1 episode of wide complex tachycardia lasting 16 beats at max rate 176 bpm (avg 139 bpm). Triggered and Patient Diary Events There were 2 triggered and 0 patient diary events: Trigger events reflect sinus rhythm 80s-90s bpm without ectopy Conclusion(s): ?? 1) Predominant rhythm is sinus rhythm with limited diurnal variation. 2) Rare ectopy 3) No pauses, high degree AV block, or atrial fibrillation seen. 4) Trigger events correlate with sinus rhythm without ectopy. 5) No sustained arrhythmias. Zara Olsen MD CARDIAC SERVICES ORD ERABLES * EKG 12 Lead (05/02/2021 11:14 AM EST) Ventricular rate 85 BPM MUSE SYSTEM Atrial Rate 85 BPM MUSE SYSTEM P-R Interval 160 ms MUSE SYSTEM QRS Duration 76 ms MUSE SYSTEM Q-T Interval 346 ms MUSE SYSTEM QTC Calculated (Bezet) 411 ms MUSE SYSTEM Calculated P [place] 49 degrees MUSE SYSTEM Calculated R [place] 2 degrees MUSE SYSTEM Calculated T [place] 24 degrees MUSE SYSTEM INTERPRETATION Normal sinus rhythm Possible Anterior infarct (cited on or before 25-APR-2021) Abnormal ECG When compared with ECG of 25-APR-2021 17:29, No significant change was found I personally reviewed the tracing and edited the fellows interpretation Confirmed by fellow Madhu Hall ([id number]) on 05/02/2021 3:01:30 PM Confirmed by MD Hector, Isiah ([id number]) on 05/02/2021 6:14:43 PM MUSE SYSTEM 05/02/2021 11:1 4 AM EST 05/02/2021 6:14 PM EST Zara Olsen MD ECG ORDERABLES MUSE SYSTEM * (ABNORMAL) Differential, Automated (05/02/2021 4:35 AM EST) Neutrophil % 68.5 % [facility] Neutrophil Absolute 7.88(H) 1.70 - 6.10 x10(3)/mc L [facility] Lymph % 18.2 % [facility] Lymphocytes Abs 2.1 0.9 - 3.2 x10(3)/mc L [facility] Monocyte % 6.5 % [facility] Monocyte Abs 0.8 0.3 - 0.9 x10(3)/ L [facility] Eos % 1.4 % [facility] Eosinophils Abs 0.2 0.0 - 0.4 x10(3)/[facility] Basophil % 0.4 % [facility] Baso Absolute 0.0 0.0 - 0.1 x10(3)/[facility] Immature Gran % 5.00 % [facility] Comment: Immature granulocytes(IG's)percentage and absolute count will include metamyelocytes, myelocytes, and promyelocytes. Blood smears from CBCs yielding IG's will be scanned manually for concordance. If this scan disagrees with the automated IG or if promyelocytes are noted, a manual differential will be performed. Immature Gran Absolute 0.58(H) 0.00 - 0.04 x10(3)/[facility] Blood 05/02/2021 4:35 AM EST 05/02/2021 4:43 AM EST Narrative Resulting Agency Comment Spec In Lab Mandie Aguilera MD HEMATOLOGY ORDERABLE S [facility] [place] [address] * (ABNORMAL) Hemogram (05/02/2021 4:35 AM EST) White Blood Cell 11.5(H) 4.0 - 9.5 x10(3)/[facility] Red Blood Cell 2.70(L) 4.00 - 5.21 x10(6)/[facility] Hemoglobin 8.2(L) 11.7 - 15.5 g/dL [facility] Hematocrit 24.8(L) 35.7 - 45.8 % [facility] Mean Cell Volume 91.9 82.6 - 94.4 fL [facility] Mean Cell Hemoglobin 30.4 27.1 - 32.0 pg [facility] Mean Cell Hemoglobin Concentration 33.1 31.7 - 35.0 g/dL [facility] Platelet 231 145 - 357 x10(3)/mc L [facility] RDW Standard Deviation 49.3(H) 37.0 - 46.0 fL [facility] RDW coefficient of variation 14.9(H) 11.5 - 14.1 % [facility] Mean Platelet Volume 8.8 7.6 - 12.9 fL [facility] NRBC% auto 0.2 % [facility] NRBC Absolute 0.020(H) 0.000 - 0.000 x10(3)/mc L [facility] Blood 05/02/2021 4:35 AM EST 05/02/2021 4:43 AM EST Narrative Resulting Agency Comment Spec In Lab Mandie Aguilera MD HEMATOLOGY ORDERABLE S Performing Organization Address City/State/[facility] Co de Phone Number [facility] [place] [phone] * Creatinine (05/02/2021 4:35 AM EST) Creatinine 0.70 0.70 - 1.20 mg/dL [facility] Est Glomerular Filtration Rate 104 >=60 mL/min/1. 73 m?? [facility] Comment: This patient? s estimated glomerular filtration rate (eGFR) is between 104 mL/min/1.73 m2 (patients with less muscle mass) and 120 mL/min/1.73 m2 (patients with more muscle mass) [...] and symptoms in addition to eGFR. Blood 05/02/2021 4:35 AM EST 05/02/2021 4:43 AM EST Narrative Resulting Agency Comment Spec In Lab Zara Olsen MD CHEMISTRY ORDERABLES Performing Organization Address City/[facility]/ZIP Co de Phone Number [facility] [place] [address] * Aspartate Aminotransferase (05/02/2021 4:35 AM EST) Aspartate Aminotransferase 20 0 - 30 unit/L [facility] Blood 05/02/2021 4:35 AM EST 05/02/2021 4:43 AM EST Narrative Resulting Agency Comment Spec In Lab Zara Olsen MD CHEMISTRY ORDERABLES Performing Organization Address [facility] Co de Phone Number [facility] [place] [address] * (ABNORMAL) Differential, Automated (05/01/2021 3:15 AM EST) Pathologist [facility] Neutrophil % 77.0 % [facility] Neutrophil Absolute 10.81(H) 1.70 - 6.10 x10(3)/mc L [facility] Lymph % 13.3 % [facility] Lymphocytes Abs 1.9 0.9 - 3.2 x10(3)/mc L [facility] Monocyte % 6.4 % [facility] Monocyte Abs 0.9 0.3 - 0.9 x10(3)/mc L [facility] Eos % 0.9 % [facility] Eosinophils Abs 0.1 0.0 - 0.4 x10(3)/mc L [facility] Basophil % 0.2 % [facility] Baso Absolute 0.0 0.0 - 0.1 x10(3)/mc L [facility] Immature Gran % 2.20 % [facility] Comment: Immature granulocytes(IG's)percentage and absolute count will include metamyelocytes, myelocytes, and promyelocytes. Blood smears from CBCs yielding IG's will be scanned manually for concordance. If this scan disagrees with the automated IG or if promyelocytes are noted, a manual differential will be performed. Immature Gran Absolute 0.31(H) 0.00 - 0.04 x10(3)/mc L [facility] Blood 05/01/2021 3:15 AM EST 05/01/2021 3:44 AM EST Narrative Resulting Agency Comment Spec In Lab Mandie Aguilera MD HEMATOLOGY ORDERABLE S [facility] [place] [address] * (ABNORMAL) Hemogram (05/01/2021 3:15 AM EST) White Blood Cell 14.0(H) 4.0 - 9.5 x10(3)/mc L [facility] Red Blood Cell 2.77(L) 4.00 - 5.21 x10(6)/mc L [facility] Hemoglobin 8.5(L) 11.7 - 15.5 g/dL [facility] Hematocrit 25.0(L) 35.7 - 45.8 % [facility] Mean Cell Volume 90.3 82.6 - 94.4 fL [facility] Mean Cell Hemoglobin 30.7 27.1 - 32.0 pg [facility] Mean Cell Hemoglobin Concentration 34.0 31.7 - 35.0 g/dL [facility] Platelet 229 145 - 357 x10(3)/mc L [facility] RDW Standard Deviation 49.2(H) 37.0 - 46.0 fL [facility] RDW coefficient of variation 15.0(H) 11.5 - 14.1 % [facility] Mean Platelet Volume 9.0 7.6 - 12.9 fL [facility] NRBC% auto 0.1 % [facility] NRBC Absolute 0.020(H) 0.000 - 0.000 x10(3)/mc L [facility] Blood 05/01/2021 3:15 AM EST 05/01/2021 3:44 AM EST Narrative Resulting Agency Comment Spec In Lab Mandie Aguilera MD HEMATOLOGY ORDERABLE S [facility] [place] [address] * Creatinine (05/01/2021 3:15 AM EST) Creatinine 0.76 0.70 - 1.20 mg/dL [facility] Est Glomerular Filtration Rate 94 >=60 mL/min/1. 73 m?? [facility] Comment: This patient? s estimated glomerular filtration rate (eGFR) is between 94 mL/min/1.73 m2 (patients with less muscle mass) and 109 mL/min/1.73 m2 (patients with more muscle mass) [...] and symptoms in addition to eGFR. Blood 05/01/2021 3:15 AM EST 05/01/2021 3:44 AM EST Narrative Resulting Agency Comment Spec In Lab Zara Olsen MD CHEMISTRY ORDERABLES Performing Organization Address City/[facility]/ZIP Co de Phone Number [facility] [place] [address] * Aspartate Aminotransferase (05/01/2021 3:15 AM EST) Aspartate Aminotransferase 18 0 - 30 unit/L [facility] Blood 05/01/2021 3:15 AM EST 05/01/2021 3:44 AM EST Narrative Resulting Agency Comment Spec In Lab Zara Olsen MD CHEMISTRY ORDERABLES [facility] [place] [address] * POCT Glucose (04/30/2021 7:58 PM EST) Glucose, POC 140 65 - 199 mg/dL [facility] Comment: Supplemental ranges: <140 mg/dL before meals <180 mg/dL all other times of the day Blood 04/30/2021 7:58 PM EST 04/30/2021 7:58 PM EST Zara Olsen MD POINT OF CARE TEST O RDERAJENIFFER Performing Organization Address City/[facility]/ZIP Co de Phone Number [facility] [place] [address] * POCT Glucose (04/30/2021 9:53 AM EST) Glucose, POC 143 65 - 199 mg/dL [facility] Comment: Supplemental ranges: <140 mg/dL before meals <180 mg/dL all other times of the day Blood 04/30/2021 9:53 AM EST 04/30/2021 9:53 AM EST Zara lOsen MD POINT OF CARE TEST O JOHN Performing Organization Address City/[facility]/ZIP Co de Phone Number [facility] [place] [address] * POCT Glucose (04/30/2021 5:52 AM EST) Glucose, POC 139 65 - 199 mg/dL [facility] Comment: Supplemental ranges: <140 mg/dL before meals <180 mg/dL all other times of the day Blood 04/30/2021 5:52 AM EST 04/30/2021 5:52 AM EST Zara Olsen MD POINT OF CARE TEST O RDERAJENIFFER Performing Organization Address City/[facility]/ZIP Co de Phone Number [facility] [place] [address] * (ABNORMAL) Differential, Automated (04/30/2021 5:10 AM EST) Neutrophil % 81.6 % [facility] Neutrophil Absolute 11.67(H) 1.70 - 6.10 x10(3)/[facility] Lymph % 10.7 % [facility] Lymphocytes Abs 1.5 0.9 - 3.2 x10(3)/[facility] Monocyte % 5.9 % [facility] Monocyte Abs 0.8 0.3 - 0.9 x10(3)/[facility] Eos % 0.3 % [facility] Eosinophils Abs 0.0 0.0 - 0.4 x10(3)/[facility] Basophil % 0.1 % [facility] Baso Absolute 0.0 0.0 - 0.1 x10(3)/[facility] Immature Gran % 1.40 % [facility] Comment: Immature granulocytes(IG's)percentage and absolute count will include metamyelocytes, myelocytes, and promyelocytes. Blood smears from CBCs yielding IG's will be scanned manually for concordance. If this scan disagrees with the automated IG or if promyelocytes are noted, a manual differential will be performed. Immature Gran Absolute 0.20(H) 0.00 - 0.04 x10(3)/[facility] Blood 04/30/2021 5:10 AM EST 04/30/2021 5:18 AM EST Narrative Resulting Agency Comment Spec In Lab Leti Guerrero MD HEMATOLOGY ORDERABLE S [facility] [place] [address] * (ABNORMAL) Hemogram (04/30/2021 5:10 AM EST) White Blood Cell 14.3(H) 4.0 - 9.5 x10(3)/[facility] Red Blood Cell 2.87(L) 4.00 - 5.21 x10(6)/ L [facility] Hemoglobin 8.8(L) 11.7 - 15.5 g/dL [facility] Hematocrit 25.8(L) 35.7 - 45.8 % [facility] Mean Cell Volume 89.9 82.6 - 94.4 fL [facility] Mean Cell Hemoglobin 30.7 27.1 - 32.0 pg [facility] Mean Cell Hemoglobin Concentration 34.1 31.7 - 35.0 g/dL [facility] Platelet 226 145 - 357 x10(3)/[facility] RDW Standard Deviation 48.7(H) 37.0 - 46.0 [facility] RDW coefficient of variation 15.1(H) 11.5 - 14.1 % [facility] Mean Platelet Volume 9.0 7.6 - 12.9 [facility] NRBC% auto 0.0 % [facility] NRBC Absolute 0.000 0.000 - 0.000 x10(3)/[facility] Blood 04/30/2021 5:10 AM EST 04/30/2021 5:18 AM EST Narrative Resulting Agency Comment Spec In Lab Leti Guerrero MD HEMATOLOGY ORDERABLE S [facility] [place] [address] * Creatinine (04/30/2021 5:10 AM EST) Creatinine 0.78 0.70 - 1.20 mg/dL [facility] Est Glomerular Filtration Rate 91 >=60 mL/min/1. 73 m?? [facility] Comment: This patient? s estimated glomerular filtration rate (eGFR) is between 91 mL/min/1.73 m2 (patients with less muscle mass) and 106 mL/min/1.73 m2 (patients with more muscle mass) [...] and symptoms in addition to eGFR. Blood 04/30/2021 5:10 AM EST 04/30/2021 5:18 AM EST Narrative Resulting Agency Comment Spec In Lab Zara Olsen MD CHEMISTRY ORDERABLES Performing Organization Address [facility]/ZIP Co de Phone Number [facility] [place] [address] * Aspartate Aminotransferase (04/30/2021 5:10 AM EST) Aspartate Aminotransferase 24 0 - 30 unit/L [facility] Blood 04/30/2021 5:10 AM EST 04/30/2021 5:18 AM EST Narrative Resulting Agency Comment Spec In Lab Zara Olsen MD CHEMISTRY ORDERABLES Performing Organization Address [facility] Co de Phone Number [facility] [place] [address] * (ABNORMAL) Hemogram (04/29/2021 2:08 PM EST) White Blood Cell 18.7(H) 4.0 - 9.5 x10(3)/mc L [facility] Red Blood Cell 3.35(L) 4.00 - 5.21 x10(6)/mc L [facility] Hemoglobin 10.2(L) 11.7 - 15.5 g/dL [facility] Hematocrit 30.2(L) 35.7 - 45.8 % [facility] Mean Cell Volume 90.1 82.6 - 94.4 fL [facility] Mean Cell Hemoglobin 30.4 27.1 - 32.0 pg [facility] [facility] Mean Cell Hemoglobin Concentration 33.8 31.7 - 35.0 g/dL [facility] Platelet 268 145 - 357 x10(3)/mc L [facility] RDW Standard Deviation 47.9(H) 37.0 - 46.0 fL [facility] RDW coefficient of variation 14.8(H) 11.5 - 14.1 % [facility] Mean Platelet Volume 9.1 7.6 - 12.9 fL [facility] NRBC% auto 0.1 % [facility] NRBC Absolute 0.020(H) 0.000 - 0.000 x10(3)/mc L [facility] Blood 04/29/2021 2:08 PM EST 04/29/2021 2:25 PM EST Narrative Resulting Agency Comment Spec In Lab Zara Olsen MD HEMATOLOGY ORDERABLE S Performing Organization Address City/[facility]/ZIP Co de Phone Number [facility] [place] [address] * Specimen to Pathology (04/29/2021 11:02 AM EST) AP Specimen 04/29/2021 11:0 2 AM EST 04/29/2021 11:02 AM EST Narrative [facility] - 04/29/2021 11:02 AM EST Specimen requisition ordered. ??Separate Pathology report to follow Zara Olsen MD PATHOLOGY/CYTOLOGY O JOHN Performing Organization Address City/[facility]/ZIP Co de Phone Number [facility] [place] [address] * Specimen to Pathology (04/29/2021 11:02 AM EST) AP Specimen 04/29/2021 11:0 2 AM EST 04/29/2021 11:02 AM EST Narrative [facility] - 04/29/2021 11:02 AM EST Specimen requisition ordered. ??Separate Pathology report to follow Zara Olsen MD PATHOLOGY/CYTOLOGY O RDERABLES [facility] [place] [address] * Surgical Pathology Report (04/29/2021 9:51 AM EST) Final Diagnosis [id number] ? Location: ; 05; A The signing pathologist has (i) examined the relevant preparation(s) for the specimen(s) and (ii) rendered or confirmed the diagnosis(es). . ?Surgical Pathology DIAGNOSIS A - Term succenturiate placenta, 418 grams: ?Weight between 10th and 25th percentiles for gestation. ?Disrupted maternal decidual surface though grossly complete. ?Membranes with no chorioamnionitis. ?Patchy chronic deciduitis with basal villitis. ?Third trimester villous maturation; no significant focal parenchymal lesion. ?Three vessel umbilical cord with no funisitis. B - Fallopian tubes; bilateral resection: ?Transected Fallopian tubes with no diagnostic abnormality. Electronically signed by: ?Leonid RIVERA, Kilo Busby Verified: ??05/07/2021 12:33 ??Pathologist Performed at: ??-[facility], [place], [place] SPECIMEN(S) SUBMITTED A - placenta, placenta - for exam (1) B - Bilateral Fallopian Tubes, Excision (_) CLINICAL INFORMATION 46-year-old status post bilateral salpingectomy for sterilization SPECIMEN PROCESSING A - Labeled/Fixative: Placenta, fresh. Quantity/Size/Wagner ght: Single, 20.5 x 16 x 2.5 cm, 418 g. Integrity: Intact. Shape: Discoid. Accessory lobe: Succenturiate lobe, and 4.5 x 3.7 x 1.0 cm. Membranes: ? - Insertion: 100% marginal, ? - Color and Clarity: Bromide-red and translucent. Cord: ? - Size: 41.5 x 1.2 cm. ? - Number of Vessels: Three. ? - Insertion site: Paracentral. Surface: ? - Color and Clarity: Gonzalez-blue and translucent. Maternal Surface: Focally disrupted but appears complete well formed cotyledons and scant loosely adherent blood clot. Parenchyma: Boggy. Sections/Processi ng: Bulk Sealer Operator sections in 7 cassettes as follows: ?A1: ??Membrane roll ?A2: ??Proximal and distal cord ?A3-A4: ??Full thickness parenchyma ?A5-A6: ??Full thickness parenchyma, bisected ?A7: ??Accessory lobe B - Labeled/Fixative: Bilateral fallopian tubes, formalin. Tissue Description: Intact, bilateral salpingectomy. . SPECIMEN PROCESSING Fallopian Tube 1: 11.7 x 0.6 cm, fimbriated. Fallopian Tube 2: 11.0 x 0.6 cm, fimbriated. Sections/Processi ng: Bulk Sealer Operator sections in 4 cassettes as follows: ?B1: ??Fallopian tube 1 fimbria ?B2: ??Fallopian tube 1 cross-sections ?B3: ??Fallopian tube 2 fimbria ?B4: ??Fallopian tube 2 cross-sections ??ajw 05/07/2021 12:33 PM EDT [facility] TISSUE SPECIMEN FROM PLACENTA / Unknown 04/29/2021 9:51 AM EST 04/29/2021 9:51 AM EST False Vocal Cords, Bilateral 04/29/2021 9:51 AM EST 04/29/2021 9:51 AM EST Mandie Aguilera MD PATHOLOGY/CYTOLOGY O RDERABLES [facility] [place] [address] * (ABNORMAL) Magnesium (04/29/2021 8:50 AM EST) Magnesium 2.44(Criti caroline) 0.69 - 1.07 mmol/L [facility] Comment: This critical Magnesium result is on a [facility] patient. The doctor does not need to be notified per Lab and [facility] protocol. Blood No Charge / Unknown 04/29/2021 8:50 AM EST 04/29/2021 9:02 AM EST Narrative Resulting Agency Comment Spec In Lab Mandie Aguilera MD CHEMISTRY ORDERABLES [facility] [place] [address] * (ABNORMAL) Comprehensive metabolic panel (non-fasting) (04/29/2021 8:50 AM EST) Glucose 111 65 - 199 mg/dL [facility] Comment:Diabetes: >=200 mg/d L plus symptoms Blood Urea Nitrogen 13 8 - 18 mg/dL [facility] Creatinine 0.68(L) 0.70 - 1.20 mg/dL [facility] Sodium 130(L) 135 - 145 mmol/L [facility] Potassium 4.0 3.5 - 5.0 mmol/L [facility] Comment: Please note: ??Patients with WBC >100,000 may have falsely elevated Potassium levels. ??For accurate Potassium quantification in these patients send serum separator tube (gold top) for subsequent determinations. ??Contact the Clinical Chemistry Laboratory if there are any questions. Chloride 101 98 - 107 mmol/L [facility] Carbon Dioxide 16(L) 22 - 31 mmol/L [facility] Anion Gap 13 5 - 15 mmol/L [facility] Calcium 7.5(L) 8.5 - 10.5 mg/dL [facility] Comment:result rechecked-ruth Protein, Total 6.9 6.1 - 8.0 g/dL [facility] Albumin 3.6 3.2 - 5.2 g/dL [facility] Aspartate Aminotransferase 21 0 - 30 unit/L [facility] Alanine Aminotransferase 28 0 - 30 unit/L [facility] Alkaline Phosphatase 99 35 - 105 unit/L [facility] Bilirubin, Total 0.4 0.2 - 1.3 mg/dL [facility] Est Glomerular Filtration Rate 105 >=60 mL/min/1. 73 m?? [facility] Comment: This patient? s estimated [...] In Lab Mandie Aguilera MD CHEMISTRY ORDERABLES [facility] [place] [address] * (ABNORMAL) Differential, Automated (04/29/2021 8:50 AM EST) Neutrophil % 81.3 % [facility] Neutrophil Absolute 11.57(H) 1.70 - 6.10 x10(3)/mc L [facility] Lymph % 10.2 % [facility] Lymphocytes Abs 1.4 0.9 - 3.2 x10(3)/mc L [facility] Monocyte % 5.3 % [facility] Monocyte Abs 0.8 0.3 - 0.9 x10(3)/mc L [facility] Eos % 0.3 % [facility] Eosinophils Abs 0.0 0.0 - 0.4 x10(3)/mc L [facility] Basophil % 0.2 % [facility] Baso Absolute 0.0 0.0 - 0.1 x10(3)/mc L [facility] Immature Gran % 2.70 % [facility] Comment: Immature granulocytes(IG's)percentage and absolute count will include metamyelocytes, myelocytes, and promyelocytes. Blood smears from CBCs yielding IG's will be scanned manually for concordance. If this scan disagrees with the automated IG or if promyelocytes are noted, a manual differential will be performed. Immature Gran Absolute 0.39(H) 0.00 - 0.04 x10(3)/mc L [facility] Blood No Charge / Unknown 04/29/2021 8:50 AM EST 04/29/2021 9:00 AM EST Narrative Resulting Agency Comment Spec In Lab Mandie Aguilera MD HEMATOLOGY ORDERABLE S [facility] [place] [address] * (ABNORMAL) Hemogram (04/29/2021 8:50 AM EST) White Blood Cell 14.2(H) 4.0 - 9.5 x10(3)/mc L [facility] Red Blood Cell 3.86(L) 4.00 - 5.21 x10(6)/mc L [facility] Hemoglobin 11.5(L) 11.7 - 15.5 g/dL [facility] Hematocrit 34.3(L) 35.7 - 45.8 % [facility] Mean Cell Volume 88.9 82.6 - 94.4 fL [facility] Mean Cell Hemoglobin 29.8 27.1 - 32.0 pg [facility] Mean Cell Hemoglobin Concentration 33.5 31.7 - 35.0 g/dL [facility] Platelet 297 145 - 357 x10(3)/mc L [facility] RDW Standard Deviation 47.5(H) 37.0 - 46.0 fL [facility] RDW coefficient of variation 15.0(H) 11.5 - 14.1 % [facility] Mean Platelet Volume 9.2 7.6 - 12.9 fL [facility] NRBC% auto 0.0 % [facility] NRBC Absolute 0.000 0.000 - 0.000 x10(3)/mc L [facility] Blood No Charge / Unknown 04/29/2021 8:50 AM EST 04/29/2021 9:00 AM EST Narrative Resulting Agency Comment Spec In Lab Mandie Aguilera MD HEMATOLOGY ORDERABLE S Performing Organization Address City/[facility]/ZIP Co de Phone Number [facility] [place] [address] * Lavender Tube HOLD (04/29/2021 8:50 AM EST) Lavender Hold Sample in lab. [facility] Blood No Charge / Unknown 04/29/2021 8:50 AM EST 04/29/2021 9:00 AM EST Viridiana Wharton MD HEMATOLOGY ORDERABLE S Performing Organization Address City/[facility]/ZIP Co de Phone Number [facility] [place] [address] * Green Tube HOLD (04/29/2021 8:50 AM EST) Green Hold Sample in lab. [facility] Blood No Charge / Unknown 04/29/2021 8:50 AM EST 04/29/2021 9:00 AM EST Viridiana Wharton MD CHEMISTRY ORDERABLES Performing Organization Address City/[facility] Co de Phone Number [facility] [place] [address] * POCT Glucose (04/29/2021 7:47 AM EST) Glucose, POC 117 65 - 199 mg/dL [facility] Comment: Supplemental ranges: <140 mg/dL before meals <180 mg/dL all other times of the day Blood 04/29/2021 7:47 AM EST 04/29/2021 7:47 AM EST Zara Olsen MD POINT OF CARE TEST O RDERABLES [facility] [place] [address] * (ABNORMAL) Differential, Automated (04/28/2021 9:30 PM EST) Neutrophil % 71.4 % [facility] Neutrophil Absolute 8.37(H) 1.70 - 6.10 x10(3)/mc L [facility] Lymph % 16.3 % [facility] Lymphocytes Abs 1.9 0.9 - 3.2 x10(3)/mc L [facility] Monocyte % 7.7 % [facility] Monocyte Abs 0.9 0.3 - 0.9 x10(3)/mc L [facility] Eos % 0.4 % [facility] Eosinophils Abs 0.0 0.0 - 0.4 x10(3)/mc L [facility] Basophil % 0.4 % [facility] Baso Absolute 0.0 0.0 - 0.1 x10(3)/mc L [facility] Immature Gran % 3.80 % [facility] Comment: Immature granulocytes(IG's)percentage and absolute count will include metamyelocytes, myelocytes, and promyelocytes. Blood smears from CBCs yielding IG's will be scanned manually for concordance. If this scan disagrees with the automated IG or if promyelocytes are noted, a manual differential will be performed. Immature Gran Absolute 0.45(H) 0.00 - 0.04 x10(3)/mc L [facility] Blood 04/28/2021 9:30 PM EST 04/28/2021 9:38 PM EST Narrative Resulting Agency Comment Spec In Lab Mandie Aguilera MD HEMATOLOGY ORDERABLE S [facility] [place] [address] * (ABNORMAL) Hemogram (04/28/2021 9:30 PM EST) White Blood Cell 11.7(H) 4.0 - 9.5 x10(3)/mc L [facility] Red Blood Cell 3.63(L) 4.00 - 5.21 x10(6)/mc L [facility] Hemoglobin 11.1(L) 11.7 - 15.5 g/dL [facility] Hematocrit 32.8(L) 35.7 - 45.8 % [facility] Mean Cell Volume 90.4 82.6 - 94.4 fL [facility] Mean Cell Hemoglobin 30.6 27.1 - 32.0 pg [facility] Mean Cell Hemoglobin Concentration 33.8 31.7 - 35.0 g/dL [facility] Platelet 331 145 - 357 x10(3)/mc L [facility] RDW Standard Deviation 49.9(H) 37.0 - 46.0 [facility] RDW coefficient of variation 15.4(H) 11.5 - 14.1 % [facility] Mean Platelet Volume 9.5 7.6 - 12.9 [facility] NRBC% auto 0.4 % [facility] NRBC Absolute 0.050(H) 0.000 - 0.000 x10(3)/ L [facility] Blood 04/28/2021 9:30 PM EST 04/28/2021 9:38 PM EST Narrative Resulting Agency Comment Spec In Lab Mandie Aguilera MD HEMATOLOGY ORDERABLE S [facility] [place] [address] * (ABNORMAL) Comprehensive metabolic panel (non-fasting) (04/28/2021 9:30 PM EST) Glucose 106 65 - 199 mg/dL [facility] Comment:Diabetes: >=200 mg/d L plus symptoms Blood Urea Nitrogen 15 8 - 18 mg/dL [facility] Creatinine 0.77 0.70 - 1.20 mg/dL [facility] Sodium 133(L) 135 - 145 mmol/L [facility] Potassium 4.1 3.5 - 5.0 mmol/L [facility] Comment: Please note: ??Patients with WBC >100,000 may have falsely elevated Potassium levels. ??For accurate Potassium quantification in these patients send serum separator tube (gold top) for subsequent determinations. ??Contact the Clinical Chemistry Laboratory if there are any questions. Chloride 101 98 - 107 mmol/L [facility] Carbon Dioxide 17(L) 22 - 31 mmol/L [facility] Anion Gap 15 5 - 15 mmol/L [facility] Calcium 8.4(L) 8.5 - 10.5 mg/dL [facility] Protein, Total 6.8 6.1 - 8.0 g/dL [facility] Albumin 3.6 3.2 - 5.2 g/dL [facility] Aspartate Aminotransferase 25 0 - 30 unit/L [facility] Alanine Aminotransferase 29 0 - 30 unit/L [facility] Alkaline Phosphatase 94 35 - 105 unit/L [facility] Bilirubin, Total 0.3 0.2 - 1.3 mg/dL [facility] Est Glomerular Filtration Rate 93 >=60 mL/min/1. 73 m?? [facility] Comment: This patient? s estimated glomerular filtration rate (eGFR) is between 93 mL/min/1.73 m2 (patients with less muscle mass) and 107 mL/min/1.73 m2 (patients with more muscle mass) [...] and symptoms in addition to eGFR. Blood 04/28/2021 9:30 PM EST 04/28/2021 9:38 PM EST Narrative Resulting Agency Comment Spec In Lab Zara Olsen MD CHEMISTRY ORDERABLES Performing Organization Address [facility] Co de Phone Number [facility] [place] [address] * Type and Screen Validity (04/28/2021 9:29 PM EST) [facility] T&S only valid at [facility]ATORY Comment:This Type and Screen result is only valid at the [facility] Blood 04/28/2021 9:29 PM EST 04/28/2021 9:37 PM EST Narrative Resulting Agency Comment Spec In Lab Bess Ahuja MD BLOOD BANK LAB ORDER MITRA Performing Organization Address [facility] Co de Phone Number [facility] [place] [address] * ABORH Recheck Status (04/28/2021 9:29 PM EST) [facility] ABORH Type Recheck Completed [facility] Blood 04/28/2021 9:29 PM EST 04/28/2021 9:37 PM EST Narrative Resulting Agency Comment Spec In Lab Bess Ahuja MD BLOOD BANK LAB ORDER MITRA Performing Organization Address [facility] Co de Phone Number [facility] [place] [address] * Antibody screen (04/28/2021 9:29 PM EST) [facility] Ab Screen Interp Negative [facility] Expires at [id number] on: 05/01/2021 [facility] Blood 04/28/2021 9:29 PM EST 04/28/2021 9:37 PM EST Narrative Resulting Agency Comment Spec In Lab Bess Ahuja MD BLOOD BANK LAB ORDER MITRA Performing Organization Address City/[facility]/ZIP Co de Phone Number [facility] [place] [address] * ABO/Rh Typing (04/28/2021 9:29 PM EST) ABORH Type O Pos [facility] Blood 04/28/2021 9:29 PM EST 04/28/2021 9:37 PM EST Narrative Resulting Agency Comment Spec In Lab Bess Ahuja MD BLOOD BANK LAB ORDER MITRA Performing Organization Address [facility] Co de Phone Number [facility] [place] [address] * POCT Glucose (04/28/2021 6:53 PM EST) Glucose, POC 118 65 - 199 mg/dL [facility] Comment: Supplemental ranges: <140 mg/dL before meals <180 mg/dL all other times of the day Blood 04/28/2021 6:53 PM EST 04/28/2021 6:53 PM EST Zara Olsen MD POINT OF CARE TEST O RDERABLES Performing Organization Address [facility]/ZIP Co de Phone Number [facility] [place] [address] * POCT Glucose (04/28/2021 4:57 PM EST) Glucose, POC 96 65 - 199 mg/dL [facility] Comment: Supplemental ranges: <140 mg/dL before meals <180 mg/dL all other times of the day Blood 04/28/2021 4:57 PM EST 04/28/2021 4:57 PM EST Zara Olsen MD POINT OF CARE TEST O JOHN Performing Organization Address [facility] Co de Phone Number [facility] [place] [address] * POCT Glucose (04/28/2021 11:06 AM EST) Glucose, POC 84 65 - 199 mg/dL [facility] Comment: Supplemental ranges: <140 mg/dL before meals <180 mg/dL all other times of the day Blood 04/28/2021 11:0 6 AM EST 04/28/2021 11:06 AM EST Zara Olsen MD POINT OF CARE TEST O JOHN Performing Organization Address [facility] Phone Number [facility] [place] [address] * US GRAVITY PROSPECTING SUPERVISOR (POCUS) (04/28/2021 10:51 AM EST) Anatomical Region Laterality Modality Other 04/28/2021 10:5 1 AM EST Narrative 04/28/2021 11:27 AM EST OB Exam - 2nd-3rd Tri presentation and viability A transabdominal ultrasound was performed to evaluate position and viability: Indication Indication: in conjunction with external cephalic version other indication: Images obtained Images obtained: presenting part,cine of heart AIUM presentation Image quality 2/3: focal zone at appropriate level,longitudinal view of lower uterine segment above level of maternal pubic bone, presenting part identified in relation to cervical area Exam position: transverse spine up heart rate: 165 bpm Placental location: anterior Attending Attending attestation: I was immediately available but not physically present during the procedure. ??I reviewed the images and I agree with the image interpretation as documented. [email or web address]. attending comments: Remember to enter your charge into Charge Capture in eDH under the POCUS setting: Electronically Signed by the following Performing: ?on 11:27 Attending: ?on 11:27 [email or web address] Procedure Note Venecia Newman MD - 04/28/2021 OB Exam - -3rd Tri presentation and viability A transabdominal ultrasound was performed to evaluate position andviability: Indication Indication: in conjunction with external cephalic version other indication: Images obtained Images obtained: presenting part,cine of heart AIUM presentation Image quality 2/3: focal zone at appropriate level,longitudinal view oflower uterine segment above level of maternal pubic bone, presenting part identified inrelation to cervical area Exam position: transverse spine up heart rate: 165 bpm Placental location: anterior Attending Attending attestation: I was immediately available but not physicallypresent during the procedure. I reviewed the images and I agree with the imageinterpretation as documented. [email or web address]. attending comments: Remember to enter your charge into Charge Capture in eDH under the POCUSsetting: Electronically Signed by the following Performing: on 11:27Attending: on 11:27 [email or web address] Venecia Newman MD [facility] IMAGES * (ABNORMAL) Differential, Automated (04/28/2021 10:40 AM EST) Neutrophil % 69.1 % [facility] Neutrophil Absolute 7.27(H) 1.70 - 6.10 x10(3)/mc L [facility] Lymph % 16.8 % [facility] Lymphocytes Abs 1.8 0.9 - 3.2 x10(3)/mc L [facility] Monocyte % 7.9 % [facility] Monocyte Abs 0.8 0.3 - 0.9 x10(3)/mc L [facility] Eos % 0.6 % [facility] Eosinophils Abs 0.1 0.0 - 0.4 x10(3)/ L [facility] Basophil % 0.7 % [facility] Baso Absolute 0.1 0.0 - 0.1 x10(3)/ L [facility] Immature Gran % 4.90 % [facility] Comment: Immature granulocytes(IG's)percentage and absolute count will include metamyelocytes, myelocytes, and promyelocytes. Blood smears from CBCs yielding IG's will be scanned manually for concordance. If this scan disagrees with the automated IG or if promyelocytes are noted, a manual differential will be performed. Immature Gran Absolute 0.51(H) 0.00 - 0.04 x10(3)/[facility] LABORATORY Blood 04/28/2021 10:4 0 AM EST 04/28/2021 10:59 AM EST Narrative Resulting Agency Comment Spec In Lab Mandie Aguilera MD HEMATOLOGY ORDERABLE S [facility] [place] [address] * (ABNORMAL) Hemogram (04/28/2021 10:40 AM EST) White Blood Cell 10.5(H) 4.0 - 9.5 x10(3)/ L [facility] Red Blood Cell 3.53(L) 4.00 - 5.21 x10(6)/ L [facility] Hemoglobin 10.8(L) 11.7 - 15.5 g/dL [facility] Hematocrit 31.6(L) 35.7 - 45.8 % [facility] Mean Cell Volume 89.5 82.6 - 94.4 fL [facility] Mean Cell Hemoglobin 30.6 27.1 - 32.0 pg [facility] Mean Cell Hemoglobin Concentration 34.2 31.7 - 35.0 g/dL [facility] Platelet 278 145 - 357 x10(3)/ L [facility] RDW Standard Deviation 48.8(H) 37.0 - 46.0 fL [facility] RDW coefficient of variation 15.1(H) 11.5 - 14.1 % [facility] Mean Platelet Volume 9.1 7.6 - 12.9 fL [facility] NRBC% auto 0.5 % [facility] NRBC Absolute 0.050(H) 0.000 - 0.000 x10(3)/mc L [facility] Blood 04/28/2021 10:4 0 AM EST 04/28/2021 10:59 AM EST Narrative Resulting Agency Comment Spec In Lab Mandie Aguilera MD HEMATOLOGY ORDERABLE S Performing Organization Address City/State/[facility] Co de Phone Number [facility] [place] [address] * (ABNORMAL) Comprehensive metabolic panel (non-fasting) (04/28/2021 10:40 AM EST) Glucose 80 65 - 199 mg/dL [facility] Comment:Diabetes: >=200 mg/d L plus symptoms Blood Urea Nitrogen 13 8 - 18 mg/dL [facility] Creatinine 0.78 0.70 - 1.20 mg/dL [facility] Sodium 135 135 - 145 mmol/L [facility] Potassium 4.2 3.5 - 5.0 mmol/L [facility] Comment: Please note: ??Patients with WBC >100,000 may have falsely elevated Potassium levels. ??For accurate Potassium quantification in these patients send serum separator tube (gold top) for subsequent determinations. ??Contact the Clinical Chemistry Laboratory if there are any questions. Chloride 106 98 - 107 mmol/L [facility] Carbon Dioxide 17(L) 22 - 31 mmol/L [facility] Anion Gap 12 5 - 15 mmol/L [facility] Calcium 8.6 8.5 - 10.5 mg/dL [facility] Protein, Total 6.5 6.1 - 8.0 g/dL [facility] Albumin 3.5 3.2 - 5.2 g/dL [facility] Aspartate Aminotransferase 23 0 - 30 unit/L [facility] Alanine Aminotransferase 27 0 - 30 unit/L [facility] Alkaline Phosphatase 88 35 - 105 unit/L [facility] Bilirubin, Total 0.3 0.2 - 1.3 mg/dL [facility] Est Glomerular Filtration Rate 91 >=60 mL/min/1. 73 m?? [facility] Comment: This patient? s estimated glomerular filtration rate (eGFR) is between 91 mL/min/1.73 m2 (patients with less muscle mass) and 106 mL/min/1.73 m2 (patients with more muscle mass) [...] and symptoms in addition to eGFR. Blood 04/28/2021 10:4 0 AM EST 04/28/2021 10:59 AM EST Narrative Resulting Agency Comment Spec In Lab Zara Olsen MD CHEMISTRY ORDERABLES [facility] [place] [address] * POCT Glucose (04/28/2021 5:43 AM EST) Glucose, POC 86 65 - 199 mg/dL [facility] Comment: Supplemental ranges: <140 mg/dL before meals <180 mg/dL all other times of the day Blood 04/28/2021 5:43 AM EST 04/28/2021 5:43 AM EST Zraa Olsen MD POINT OF CARE TEST O RDERABLES [facility] [place] [address] * (ABNORMAL) Differential, Automated (04/27/2021 10:20 PM EST) Neutrophil % 66.9 % [facility] Neutrophil Absolute 7.85(H) 1.70 - 6.10 x10(3)/mc L [facility] Lymph % 16.8 % [facility] Lymphocytes Abs 2.0 0.9 - 3.2 x10(3)/mc L [facility] Monocyte % 10.8 % [facility] Monocyte Abs 1.3(H) 0.3 - 0.9 x10(3)/ L [facility] Eos % 0.3 % [facility] Eosinophils Abs 0.0 0.0 - 0.4 x10(3)/[facility] Basophil % 0.5 % [facility] Baso Absolute 0.1 0.0 - 0.1 x10(3)/ L [facility] Immature Gran % 4.70 % [facility] Comment: Immature granulocytes(IG's)percentage and absolute count will include metamyelocytes, myelocytes, and promyelocytes. Blood smears from CBCs yielding IG's will be scanned manually for concordance. If this scan disagrees with the automated IG or if promyelocytes are noted, a manual differential will be performed. Immature Gran Absolute 0.55(H) 0.00 - 0.04 x10(3)/ L [facility] Blood 04/27/2021 10:2 0 PM EST 04/27/2021 10:26 PM EST Narrative Resulting Agency Comment Spec In Lab Mandie Aguilera MD HEMATOLOGY ORDERABLE S Performing Organization Address City/[facility]/ZIP Co de Phone Number [facility] [place] [address] * (ABNORMAL) Hemogram (04/27/2021 10:20 PM EST) White Blood Cell 11.7(H) 4.0 - 9.5 x10(3)/mc L [facility] Red Blood Cell 3.37(L) 4.00 - 5.21 x10(6)/mc L [facility] Hemoglobin 10.4(L) 11.7 - 15.5 g/dL [facility] Hematocrit 30.5(L) 35.7 - 45.8 % [facility] Mean Cell Volume 90.5 82.6 - 94.4 fL [facility] Mean Cell Hemoglobin 30.9 27.1 - 32.0 pg [facility] Mean Cell Hemoglobin Concentration 34.1 31.7 - 35.0 g/dL [facility] Platelet 286 145 - 357 x10(3)/mc L [facility] RDW Standard Deviation 48.9(H) 37.0 - 46.0 [facility] RDW coefficient of variation 15.2(H) 11.5 - 14.1 % [facility] Mean Platelet Volume 9.2 7.6 - 12.9 fL [facility] NRBC% auto 0.7 % [facility] NRBC Absolute 0.080(H) 0.000 - 0.000 x10(3)/mc L [facility] Blood 04/27/2021 10:2 0 PM EST 04/27/2021 10:26 PM EST Narrative Resulting Agency Comment Spec In Lab Mandie Aguilera MD HEMATOLOGY ORDERABLE S [facility] [place] [address] * (ABNORMAL) Comprehensive metabolic panel (non-fasting) (04/27/2021 10:20 PM EST) Glucose 97 65 - 199 mg/dL [facility] Comment:Diabetes: >=200 mg/d L plus symptoms Blood Urea Nitrogen 16 8 - 18 mg/dL [facility] Creatinine 0.84 0.70 - 1.20 mg/dL [facility] Sodium 135 135 - 145 mmol/L [facility] Potassium 4.1 3.5 - 5.0 mmol/L [facility] Comment: Please note: ??Patients with WBC >100,000 may have falsely elevated Potassium levels. ??For accurate Potassium quantification in these patients send serum separator tube (gold top) for subsequent determinations. ??Contact the Clinical Chemistry Laboratory if there are any questions. Chloride 104 98 - 107 mmol/L [facility] Carbon Dioxide 18(L) 22 - 31 mmol/L [facility] Anion Gap 13 5 - 15 mmol/L [facility] Calcium 8.9 8.5 - 10.5 mg/dL [facility] Protein, Total 6.3 6.1 - 8.0 g/dL [facility] Albumin 3.6 3.2 - 5.2 g/dL [facility] Aspartate Aminotransferase 22 0 - 30 unit/L [facility] Alanine Aminotransferase 25 0 - 30 unit/L [facility] Alkaline Phosphatase 86 35 - 105 unit/L [facility] Bilirubin, Total 0.2 0.2 - 1.3 mg/dL [facility] Est Glomerular Filtration Rate 83 >=60 mL/min/1. 73 m?? [facility] Comment: This patient? s estimated glomerular filtration rate (eGFR) is between 83 mL/min/1.73 m2 (patients with less muscle mass) and 97 mL/min/1.73 m2 (patients with more muscle mass) [...] and symptoms in addition to eGFR. Blood 04/27/2021 10:2 0 PM EST 04/27/2021 10:26 PM EST Narrative Resulting Agency Comment Spec In Lab Zara Olsen MD CHEMISTRY ORDERABLES Performing Organization Address [facility] Phone Number [facility] [place] [address] * POCT Glucose (04/27/2021 8:01 PM EST) Glucose, POC 131 65 - 199 mg/dL [facility] Comment: Supplemental ranges: <140 mg/dL before meals <180 mg/dL all other times of the day Blood 04/27/2021 8:01 PM EST 04/27/2021 8:01 PM EST Zara Olsen MD POINT OF CARE TEST O RDERABLES Performing Organization Address [facility] Phone Number [facility] [place] [address] * POCT Glucose (04/27/2021 2:01 PM EST) Glucose, POC 153 65 - 199 mg/dL [facility] Comment: Supplemental ranges: <140 mg/dL before meals <180 mg/dL all other times of the day Blood 04/27/2021 2:01 PM EST 04/27/2021 2:01 PM EST Zara Olsen MD POINT OF CARE TEST O RDERABLES Performing Organization Address [facility] Phone Number [facility] [place] [address] * POCT Glucose (04/27/2021 9:35 AM EST) Glucose, POC 123 65 - 199 mg/dL [facility] Comment: Supplemental ranges: <140 mg/dL before meals <180 mg/dL all other times of the day Blood 04/27/2021 9:35 AM EST 04/27/2021 9:35 AM EST Zara Olsen MD POINT [place] [address] * (ABNORMAL) Differential, Automated (04/27/2021 9:04 AM EST) Neutrophil % 72.2 % [facility] Neutrophil Absolute 9.83(H) 1.70 - 6.10 x10(3)/mc L [facility] Lymph % 14.3 % [facility] Lymphocytes Abs 2.0 0.9 - 3.2 x10(3)/ L [facility] Monocyte % 7.6 % [facility] Monocyte Abs 1.0(H) 0.3 - 0.9 x10(3)/mc L [facility] Eos % 0.1 % [facility] Eosinophils Abs 0.0 0.0 - 0.4 x10(3)/ L [facility] Basophil % 0.4 % [facility] Baso Absolute 0.0 0.0 - 0.1 x10(3)/ L [facility] Immature Gran % 5.40 % [facility] Comment: Immature granulocytes(IG's)percentage and absolute count will include metamyelocytes, myelocytes, and promyelocytes. Blood smears from CBCs yielding IG's will be scanned manually for concordance. If this scan disagrees with the automated IG or if promyelocytes are noted, a manual differential will be performed. Immature Gran Absolute 0.74(H) 0.00 - 0.04 x10(3)/mc L [facility] Blood 04/27/2021 9:04 AM EST 04/27/2021 10:18 AM EST Narrative Resulting Agency Comment Spec In Lab Mandie Aguilera MD HEMATOLOGY ORDERABLE S Performing Organization Address City/[facility]/ZIP Co de Phone Number [facility] [place] [address] * (ABNORMAL) Hemogram (04/27/2021 9:04 AM EST) White Blood Cell 13.6(H) 4.0 - 9.5 x10(3)/mc L [facility] Red Blood Cell 3.25(L) 4.00 - 5.21 x10(6)/mc L [facility] Hemoglobin 9.7(L) 11.7 - 15.5 g/dL [facility] Hematocrit 29.4(L) 35.7 - 45.8 % [facility] Mean Cell Volume 90.5 82.6 - 94.4 fL [facility] Mean Cell Hemoglobin 29.8 27.1 - 32.0 pg [facility] Mean Cell Hemoglobin Concentration 33.0 31.7 - 35.0 g/dL [facility] Platelet 307 145 - 357 x10(3)/mc L [facility] RDW Standard Deviation 48.8(H) 37.0 - 46.0 fL [facility] RDW coefficient of variation 15.0(H) 11.5 - 14.1 % [facility] Mean Platelet Volume 9.6 7.6 - 12.9 fL [facility] NRBC% auto 0.4 % [facility] NRBC Absolute 0.060(H) 0.000 - 0.000 x10(3)/mc L [facility] Blood 04/27/2021 9:04 AM EST 04/27/2021 10:18 AM EST Narrative Resulting Agency Comment Spec In Lab Mandie Aguilera MD HEMATOLOGY ORDERABLE S [facility] [place] [address] * (ABNORMAL) Comprehensive metabolic panel (non-fasting) (04/27/2021 9:04 AM EST) Pathologist [facility] Glucose Not Perf 65 - 199 [facility] Comment: Sample improperly processed prior to receipt. Diabetes: >=200 mg/dL plus symptoms Blood Urea Nitrogen 16 8 - 18 mg/dL [facility] Creatinine 0.79 0.70 - 1.20 mg/dL [facility] Sodium 137 135 - 145 mmol/L [facility] Potassium 4.1 3.5 - 5.0 mmol/L [facility] Comment: Please note: ??Patients with WBC >100,000 may have falsely elevated Potassium levels. ??For accurate Potassium quantification in these patients send serum separator tube (gold top) for subsequent determinations. ??Contact the Clinical Chemistry Laboratory if there are any questions. Chloride 106 98 - 107 mmol/L [facility] Carbon Dioxide 17(L) 22 - 31 mmol/L [facility] Anion Gap 14 5 - 15 mmol/L [facility] Calcium 8.8 8.5 - 10.5 mg/dL [facility] Protein, Total 6.4 6.1 - 8.0 g/dL [facility] Albumin 3.6 3.2 - 5.2 g/dL [facility] Aspartate Aminotransferase 25 0 - 30 unit/L [facility] Alanine Aminotransferase 24 0 - 30 unit/L [facility] Alkaline Phosphatase 79 35 - 105 unit/L [facility] Bilirubin, Total 0.3 0.2 - 1.3 mg/dL [facility] Est Glomerular Filtration Rate 90 >=60 mL/min/1. 73 m?? [facility] Comment: This patient? s estimated glomerular filtration rate (eGFR) is between 90 mL/min/1.73 m2 (patients with less muscle mass) and 104 mL/min/1.73 m2 (patients with more muscle mass) [...] and symptoms in addition to eGFR. Blood 04/27/2021 9:04 AM EST 04/27/2021 10:18 AM EST Narrative Resulting Agency Comment Spec In Lab Zara Olsen MD CHEMISTRY ORDERABLES Performing Organization Address [facility] Co de Phone Number [facility] [place] [address] * POCT Glucose (04/27/2021 5:33 AM EST) [facility] Glucose, POC 94 65 - 199 mg/dL [facility] Comment: Supplemental ranges: <140 mg/dL before meals <180 mg/dL all other times of the day Blood 04/27/2021 5:33 AM EST 04/27/2021 5:33 AM EST Zara Olsen MD POINT OF CARE TEST O RDERABLES Performing Organization Address [facility] Co de Phone Number [facility] [place] [address] * Scan, Peripheral Blood (04/26/2021 9:00 PM EST) [facility] Plat estimate Normal [facility] RBC Morphology Abnormal [facility] Macrocyte 1-5 /HPF [facility] Microcyte 1-5 /HPF [facility] Platelet Clumps Present [facility] Blood 04/26/2021 9:00 PM EST 04/26/2021 9:13 PM EST Narrative Resulting Agency Comment Spec In Lab Mandie Aguilera MD HEMATOLOGY ORDERABLE S Performing Organization Address [facility] Co de Phone Number [facility] [place] [address] * (ABNORMAL) Differential, Automated (04/26/2021 9:00 PM EST) [facility] Neutrophil % 72.9 % [facility] Neutrophil Absolute 11.30(H) 1.70 - 6.10 x10(3)/mc L [facility] Lymph % 13.0 % [facility] Lymphocytes Abs 2.0 0.9 - 3.2 x10(3)/[facility] Monocyte % 7.1 % [facility] Monocyte Abs 1.1(H) 0.3 - 0.9 x10(3)/[facility] Eos % 0.1 % [facility] Eosinophils Abs 0.0 0.0 - 0.4 x10(3)/[facility] Basophil % 0.3 % [facility] Baso Absolute 0.0 0.0 - 0.1 x10(3)/[facility] Immature Gran % 6.60 % [facility] Comment: Immature granulocytes(IG's)percentage and absolute count will include metamyelocytes, myelocytes, and promyelocytes. Blood smears from CBCs yielding IG's will be scanned manually for concordance. If this scan disagrees with the automated IG or if promyelocytes are noted, a manual differential will be performed. Immature Gran Absolute 1.03(H) 0.00 - 0.04 x10(3)/[facility] Blood 04/26/2021 9:00 PM EST 04/26/2021 9:13 PM EST Narrative Resulting Agency Comment Spec In Lab Mandie Aguilera MD HEMATOLOGY ORDERABLE S [facility] [place] [address] * (ABNORMAL) Hemogram (04/26/2021 9:00 PM EST) White Blood Cell 15.5(H) 4.0 - 9.5 x10(3)/[facility] Red Blood Cell 3.28(L) 4.00 - 5.21 x10(6)/[facility] Hemoglobin 10.0(L) 11.7 - 15.5 g/dL [facility] Hematocrit 30.0(L) 35.7 - 45.8 % [facility] Mean Cell Volume 91.5 82.6 - 94.4 fL [facility] Mean Cell Hemoglobin 30.5 27.1 - 32.0 pg [facility] Mean Cell Hemoglobin Concentration 33.3 31.7 - 35.0 g/dL [facility] Platelet 304 145 - 357 x10(3)/mc L [facility] RDW Standard Deviation 50.1(H) 37.0 - 46.0 fL [facility] RDW coefficient of variation 15.2(H) 11.5 - 14.1 % [facility] Mean Platelet Volume 9.5 7.6 - 12.9 fL [facility] NRBC% auto 0.5 % [facility] NRBC Absolute 0.070(H) 0.000 - 0.000 x10(3)/mc L [facility] Blood 04/26/2021 9:00 PM EST 04/26/2021 9:13 PM EST Narrative Resulting Agency Comment Spec In Lab Mandie Aguilera MD HEMATOLOGY ORDERABLE S [facility] [place] [address] * (ABNORMAL) Comprehensive metabolic panel (non-fasting) (04/26/2021 9:00 PM EST) Glucose 133 65 - 199 mg/dL [facility] Comment:Diabetes: >=200 mg/d L plus symptoms Blood Urea Nitrogen 17 8 - 18 mg/dL [facility] Creatinine 0.99 0.70 - 1.20 mg/dL [facility] Sodium 137 135 - 145 mmol/L [facility] Potassium 3.9 3.5 - 5.0 mmol/L [facility] Comment: Please note: ??Patients with WBC >100,000 may have falsely elevated Potassium levels. ??For accurate Potassium quantification in these patients send serum separator tube (gold top) for subsequent determinations. ??Contact the Clinical Chemistry Laboratory if there are any questions. Chloride 108(H) 98 - 107 mmol/L [facility] Carbon Dioxide 15(L) 22 - 31 mmol/L [facility] Anion Gap 14 5 - 15 mmol/L [facility] Calcium 8.5 8.5 - 10.5 mg/dL [facility] Protein, Total 6.5 6.1 - 8.0 g/dL [facility] Albumin 3.5 3.2 - 5.2 g/dL [facility] Aspartate Aminotransferase 19 0 - 30 unit/L [facility] Alanine Aminotransferase 22 0 - 30 unit/L [facility] Alkaline Phosphatase 79 35 - 105 unit/L [facility] Bilirubin, Total <0.2(L) 0.2 - 1.3 mg/dL [facility] Est Glomerular Filtration Rate 68 >=60 mL/min/1. 73 m?? [facility] Comment: This patient? s estimated glomerular filtration rate (eGFR) is between 68 mL/min/1.73 m2 (patients with less muscle mass) and 79 mL/min/1.73 m2 (patients with more muscle mass) [...] and symptoms in addition to eGFR. Blood 04/26/2021 9:00 PM EST 04/26/2021 9:13 PM EST Narrative Resulting Agency Comment Spec In Lab Zara Olsen MD CHEMISTRY ORDERABLES [facility] [place] [address] * POCT Glucose (04/26/2021 7:44 PM EST) Glucose, POC 154 65 - 199 mg/dL [facility] Comment: Supplemental ranges: <140 mg/dL before meals <180 mg/dL all other times of the day Blood 04/26/2021 7:44 PM EST 04/26/2021 7:44 PM EST Zara Olsen MD POINT OF CARE TEST O RDERAJENIFFER Performing Organization Address City/[facility]/ZIP Co de Phone Number [facility] [place] [address] * POCT Glucose (04/26/2021 2:53 PM EST) Glucose, POC 127 65 - 199 mg/dL [facility] Comment: Supplemental ranges: <140 mg/dL before meals <180 mg/dL all other times of the day Blood 04/26/2021 2:53 PM EST 04/26/2021 2:53 PM EST Zara Olsen MD POINT OF CARE TEST O JOHN Performing Organization Address [facility] Co de Phone Number [facility] [place] [address] * POCT Glucose (04/26/2021 10:33 AM EST) Glucose, POC 187 65 - 199 mg/dL [facility] Comment: Supplemental ranges: <140 mg/dL before meals <180 mg/dL all other times of the day Blood 04/26/2021 10:3 3 AM EST 04/26/2021 10:33 AM EST Zara Olsen MD POINT OF CARE TEST O JOHN Performing Organization Address City/[facility] Co de Phone Number [facility] [facility] [place] [address] * ECHO COMPLETE (04/26/2021 9:37 AM EST) EF 60 HEARTLAB SYSTEM Anatomical Region Laterality Modality Other 04/26/2021 8:54 AM EST Narrative 04/26/2021 10:29 AM EST [facility] ?[address] ? [place] [address] ?Voice: ?Fax: ? Echocardiogram Report Name: EDWAR DOMINGUEZ ? Study Date: 04/26/2021 08:54 AMBP: 146/83 mmHg ? Patient Location: BP05 A ?? HR: 94 : 1975 ? Height: 158 cm ? Account: [id number] Age: 46 yrs ? Weight: 97 kg Gender: Female ?BSA: 2.0 m2 Ordering Physician: ERVIN^R Performed By: Lorena Del Rosario RDCS Reason For Study: Severe pre-eclampsia Interpreting Fellow: Daisy Kenyon. Exam Location: [facility]. Interpretation Summary Biventricular function is normal. LVEF is 64% by King's biplane. There is no valve disease. See below report for details. Procedure Complete-[id number]. Left Ventricle Left ventricle is of normal size. Wall thickness is normal. Left ventricular systolic function is normal. The left ventricular ejection fraction is 64% by King's biplane. There are no segmental wall motion abnormalities. Right Ventricle The right ventricle is of normal size. Right ventricular systolic function is normal. Left Atrium The left atrium is normal. There is no evidence for a patent foramen ovale. Right Atrium The right atrium is normal. Aortic Valve The aortic valve is tricuspid. There is no aortic stenosis. There is no aortic regurgitation. Mitral Valve The mitral valve is structurally and functionally normal. There is no mitral stenosis. There is trace mitral regurgitation. Tricuspid Valve The tricuspid valve is structurally normal. There is trace tricuspid regurgitation. Pulmonic Valve The pulmonic valve is not well visualized. There is no pulmonic valve regurgitation. Great Arteries The aortic root is of normal size. No abnormalities are identified. Venous Inferior vena cava is normal in size. Inferior vena cava collapse greater than 50% with respiration. Pericardium/Pleural The pericardium appears normal. Hemodynamics Left ventricular filling pressure is normal. There is Grade I LV diastolic dysfunction (abnormal relaxation with normal left ventricular filling pressure). Ejection Fraction ?2D Measurements ? Volumes LV Biplane EF: 63.8 % ? IVSd: 0.81 cm ?EDV(MOD- sp4): 113.3 ml ?LVIDd: 4.7 cm ?ESV(MOD-sp4): 36.4 ml ?LVIDs: 2.9 cm ?EDV(MOD-sp2): 111.1 ml ?LVPWd: 1.0 cm ?ESV(MOD-sp2): 43.1 ml ?LV mass(C)d: 150.2 grams ? EDV (Mod-sp4) index: ?LV mass(C)dI: 76.2 grams/m2 ?57.5 ?Ao root diam: 2.8 cm ? ESV (Mod-sp4) index: ?Ao root diam index: 1.4 ?18.5 ?LVOT diam: 2.0 cm ?EDV (Mod-sp2) index: ? 56.4 ? ESV (Mod-sp2) index: ? 21.9 Doppler TR max earnest: 273.8 cm/sec Ao valve max: 12.2 mmHg MV E max earnest: 65.4 cm/sec MV A max earnest: 113.4 cm/sec MV E/A: 0.58 MV dec time: 0.15 sec E/ e' (lat): 6.2 E/e' (med): 7.7 I ?WMSI = 1.00 ? % Normal = 100 ?Segments ??Size X - Cannot ?? 1 - Normal ?? 2 - ? 3 - Akinetic 4 - ?1-2 ? small Interpret ? Hypokinetic ?Dyskinetic ?? 3-5 ? moderate 5 - ? 6-14 ?large Aneurysmal ?15-16 ?? diffuse Procedure Note Lito Wang MD - 04/26/2021 [place] [address] Voice: Fax: Echocardiogram Report Name: EDWAR DOMINGUEZ Study Date: 208:54 AMBP: 146/83 mmHg Patient Location: [address] HR: 94 : 1975 Height: 158 cm Account: [id number] Age: 46 yrs Weight: 97 kg Gender: Female BSA: 2.0 m2 Ordering Physician: ERVIN^Josh Performed By: Lorena Del Rosaroi RDCS Reason For Study: Severe pre-eclampsia Interpreting Fellow: Daisy Kenyon. Exam Location: [facility]. Interpretation Summary Biventricular function is normal. LVEF is 64% by King's biplane. There is no valve disease. See below report for details. Procedure Complete-[id number]. Left Ventricle Left ventricle is of normal size. Wall thickness is normal. Leftventricular systolic function is normal. The left ventricular ejection fraction is 64%by King's biplane. There are no segmental wall motion abnormalities. Right Ventricle The right ventricle is of normal size. Right ventricular systolic functionis normal. Left Atrium The left atrium is normal. There is no evidence for a patent foramenovale. Right Atrium The right atrium is normal. Aortic Valve The aortic valve is tricuspid. There is no aortic stenosis. There is noaortic regurgitation. Mitral Valve The mitral valve is structurally and functionally normal. There is nomitral stenosis. There is trace mitral regurgitation. Tricuspid Valve The tricuspid valve is structurally normal. There is trace tricuspid regurgitation. Pulmonic Valve The pulmonic valve is not well visualized. There is no pulmonic valve regurgitation. Great Arteries The aortic root is of normal size. No abnormalities are identified. Venous Inferior vena cava is normal in size. Inferior vena cava collapse greaterthan 50% with respiration. Pericardium/Pleural The pericardium appears normal. Hemodynamics Left ventricular filling pressure is normal. There is Grade I LVdiastolic dysfunction (abnormal relaxation with normal left ventricular fillingpressure). Ejection Fraction 2D Measurements Volumes LV Biplane EF: 63.8 % IVSd: 0.81 cm EDV(MOD-sp4):113.3 ml LVIDd: 4.7 cm ESV(MOD-sp4):36.4 ml LVIDs: 2.9 cm EDV(MOD-sp2):111.1 ml LVPWd: 1.0 cm ESV(MOD-sp2):43.1 ml LV mass(C)d: 150.2 grams EDV (Mod-sp4)index: LV mass(C)dI: 76.2 grams/m2 57.5 Ao root diam: 2.8 cm ESV (Mod-sp4)index: Ao root diam index: 1.4 18.5 LVOT diam: 2.0 cm EDV (Mod-sp2)index: 56.4 ESV (Mod-sp2)index: 21.9 Doppler TR max earnest: 273.8 cm/sec Ao valve max: 12.2 mmHg MV E max earnest: 65.4 cm/sec MV A max earnest: 113.4 cm/sec MV E/A: 0.58 MV dec time: 0.15 sec E/ e' (lat): 6.2 E/e' (med): 7.7 I WMSI = 1.00 % Normal = 100 SegmentsSize X - Cannot 1 - Normal 2 - 3 - Akinetic 4 - 1-2small Interpret Hypokinetic Dyskinetic 3-5moderate 5 - 6-14large Aneurysmal 15-16diffuse Zara Olsen MD ECHO ORDERABLES * POCT Glucose (04/26/2021 5:51 AM EST) Pathologist [facility] Glucose, POC 128 65 - 199 mg/dL [facility] Comment: Supplemental ranges: <140 mg/dL before meals <180 mg/dL all other times of the day Blood 04/26/2021 5:51 AM EST 04/26/2021 5:51 AM EST Zara Olsen MD POINT OF CARE TEST O RDERABLES Performing Organization Address City/State/[facility] Co de Phone Number [facility] [place] [address] * (ABNORMAL) Differential, Automated (04/26/2021 5:50 AM EST) [facility] Neutrophil % 84.0 % [facility] Neutrophil Absolute 11.98(H) 1.70 - 6.10 x10(3)/mc L [facility] Lymph % 7.4 % [facility] Lymphocytes Abs 1.1 0.9 - 3.2 x10(3)/mc L [facility] Monocyte % 3.3 % [facility] Monocyte Abs 0.5 0.3 - 0.9 x10(3)/mc L [facility] Eos % 0.1 % [facility] Eosinophils Abs 0.0 0.0 - 0.4 x10(3)/mc L [facility] Basophil % 0.4 % [facility] Baso Absolute 0.0 0.0 - 0.1 x10(3)/mc L [facility] Immature Gran % 4.80 % [facility] Comment: Immature granulocytes(IG's)percentage and absolute count will include metamyelocytes, myelocytes, and promyelocytes. Blood smears from CBCs yielding IG's will be scanned manually for concordance. If this scan disagrees with the automated IG or if promyelocytes are noted, a manual differential will be performed. Immature Gran Absolute 0.68(H) 0.00 - 0.04 x10(3)/mc L [facility] Blood 04/26/2021 5:50 AM EST 04/26/2021 6:14 AM EST Narrative Resulting Agency Comment Spec In Lab Leti Guerrero MD HEMATOLOGY ORDERABLE S [facility] [place] [address] * (ABNORMAL) Hemogram (04/26/2021 5:50 AM EST) White Blood Cell 14.2(H) 4.0 - 9.5 x10(3)/mc L [facility] Red Blood Cell 3.36(L) 4.00 - 5.21 x10(6)/mc L [facility] Hemoglobin 10.4(L) 11.7 - 15.5 g/dL [facility] Hematocrit 30.0(L) 35.7 - 45.8 % [facility] Mean Cell Volume 89.3 82.6 - 94.4 fL [facility] Mean Cell Hemoglobin 31.0 27.1 - 32.0 pg [facility] Mean Cell Hemoglobin Concentration 34.7 31.7 - 35.0 g/dL [facility] Platelet 297 145 - 357 x10(3)/mc L [facility] RDW Standard Deviation 48.1(H) 37.0 - 46.0 fL [facility] RDW coefficient of variation 15.0(H) 11.5 - 14.1 % [facility] Mean Platelet Volume 9.1 7.6 - 12.9 fL [facility] NRBC% auto 0.1 % [facility] NRBC Absolute 0.020(H) 0.000 - 0.000 x10(3)/mc L [facility] Blood 04/26/2021 5:50 AM EST 04/26/2021 6:14 AM EST Narrative Resulting Agency Comment Spec In Lab Leti Guerrero MD HEMATOLOGY ORDERABLE S [facility] [place] [address] * (ABNORMAL) Comprehensive metabolic panel (non-fasting) (04/26/2021 5:50 AM EST) Glucose 122 65 - 199 mg/dL [facility] Comment:Diabetes: >=200 mg/d L plus symptoms Blood Urea Nitrogen 11 8 - 18 mg/dL [facility] Creatinine 0.75 0.70 - 1.20 mg/dL [facility] Sodium 134(L) 135 - 145 mmol/L [facility] Potassium 4.4 3.5 - 5.0 mmol/L [facility] Comment: Please note: ??Patients with WBC >100,000 may have falsely elevated Potassium levels. ??For accurate Potassium quantification in these patients send serum separator tube (gold top) for subsequent determinations. ??Contact the Clinical Chemistry Laboratory if there are any questions. Chloride 105 98 - 107 mmol/L [facility] Carbon Dioxide 15(L) 22 - 31 mmol/L [facility] Anion Gap 14 5 - 15 mmol/L [facility] Calcium 8.2(L) 8.5 - 10.5 mg/dL [facility] Protein, Total 6.7 6.1 - 8.0 g/dL [facility] Albumin 3.7 3.2 - 5.2 g/dL [facility] Aspartate Aminotransferase 19 0 - 30 unit/L [facility] Alanine Aminotransferase 19 0 - 30 unit/L [facility] Alkaline Phosphatase 88 35 - 105 unit/L [facility] Bilirubin, Total 0.3 0.2 - 1.3 mg/dL [facility] Est Glomerular Filtration Rate 96 >=60 mL/min/1. 73 m?? [facility] Comment: This patient? s estimated glomerular filtration rate (eGFR) is between 96 mL/min/1.73 m2 (patients with less muscle mass) and 111 mL/min/1.73 m2 (patients with more muscle mass) [...] and symptoms in addition to eGFR. Blood 04/26/2021 5:50 AM EST 04/26/2021 6:14 AM EST Narrative Resulting Agency Comment Spec In Lab Zara Olsen MD CHEMISTRY ORDERABLES Performing Organization Address City/State/[facility] Co de Phone Number [facility] [place] [address] * (ABNORMAL) Comprehensive metabolic panel (non-fasting) (04/26/2021 12:24 AM EST) Glucose 123 65 - 199 mg/dL [facility] Comment:Diabetes: >=200 mg/d L plus symptoms Blood Urea Nitrogen 13 8 - 18 mg/dL [facility] Creatinine 0.84 0.70 - 1.20 mg/dL [facility] Sodium 132(L) 135 - 145 mmol/L [facility] Potassium 4.7 3.5 - 5.0 mmol/L [facility] Comment: Please note: ??Patients with WBC >100,000 may have falsely elevated Potassium levels. ??For accurate Potassium quantification in these patients send serum separator tube (gold top) for subsequent determinations. ??Contact the Clinical Chemistry Laboratory if there are any questions. Chloride 105 98 - 107 mmol/L [facility] Carbon Dioxide 16(L) 22 - 31 mmol/L [facility] Anion Gap 11 5 - 15 mmol/L [facility] Calcium 8.3(L) 8.5 - 10.5 mg/dL [facility] Protein, Total 6.7 6.1 - 8.0 g/dL [facility] Albumin 3.3 3.2 - 5.2 g/dL [facility] Aspartate Aminotransferase Not Perf 0 - 30 [facility] Comment: Unable to quantitate due to sample hemolysis. ??Sample redraw suggested. Called by: EG, Read back by: Izabel Anthony, Date/Time:04/26/21 01:11. Alanine Aminotransferase 21 0 - 30 unit/L [facility] Alkaline Phosphatase 89 35 - 105 unit/L [facility] Bilirubin, Total 0.3 0.2 - 1.3 mg/dL [facility] Est Glomerular Filtration Rate 83 >=60 mL/min/1. 73 m?? [facility] Comment: This patient? s estimated glomerular filtration rate (eGFR) is between 83 mL/min/1.73 m2 (patients with less muscle mass) and 97 mL/min/1.73 m2 (patients with more muscle mass) [...] and symptoms in addition to eGFR. Blood 04/26/2021 12:2 4 AM EST 04/26/2021 12:34 AM EST Narrative Resulting Agency Comment Spec In Lab Zara Olsen MD CHEMISTRY ORDERABLES [facility] [place] [address] * Osmolality, urine, random (04/25/2021 9:36 PM EST) Osmolality, Urine 87 50 - 1,200 mOsm/kg [facility] Urine 04/25/2021 9:36 PM EST 04/25/2021 9:44 PM EST Narrative Resulting Agency Comment Spec In Lab Zara Olsen MD URINE ORDERABLES Performing Organization Address [facility] de Phone Number [facility] [place] [address] * POCT Glucose (04/25/2021 8:58 PM EST) Glucose, POC 121 65 - 199 mg/dL [facility] Comment: Supplemental ranges: <140 mg/dL before meals <180 mg/dL all other times of the day Blood 04/25/2021 8:58 PM EST 04/25/2021 8:58 PM EST Zara Olsen MD POINT OF CARE TEST O RDERABLES Performing Organization Address [facility] de Phone Number [facility] [place] [address] * Osmolality (04/25/2021 7:10 PM EST) Osmolality 275 275 - 295 mOsm/kg [facility] Blood 04/25/2021 7:10 PM EST 04/25/2021 7:21 PM EST Narrative Resulting Agency Comment Spec In Lab Zara Olsen MD CHEMISTRY ORDERABLES Performing Organization Address [facility] de Phone Number [facility] [place] [address] * (ABNORMAL) Comprehensive metabolic panel (non-fasting) (04/25/2021 7:10 PM EST) Glucose 133 65 - 199 mg/dL [facility] Comment:Diabetes: >=200 mg/d L plus symptoms Blood Urea Nitrogen 12 8 - 18 mg/dL [facility] Creatinine 0.82 0.70 - 1.20 mg/dL [facility] Sodium 129(L) 135 - 145 mmol/L [facility] Potassium 4.1 3.5 - 5.0 mmol/L [facility] Comment: Please note: ??Patients with WBC >100,000 may have falsely elevated Potassium levels. ??For accurate Potassium quantification in these patients send serum separator tube (gold top) for subsequent determinations. ??Contact the Clinical Chemistry Laboratory if there are any questions. Chloride 100 98 - 107 mmol/L [facility] Carbon Dioxide 15(L) 22 - 31 mmol/L [facility] Anion Gap 14 5 - 15 mmol/L [facility] Calcium 7.8(L) 8.5 - 10.5 mg/dL [facility] Comment:delta result recheck ed SJJ Protein, Total 6.4 6.1 - 8.0 g/dL [facility] Albumin 3.5 3.2 - 5.2 g/dL [facility] Aspartate Aminotransferase 18 0 - 30 unit/L [facility] Alanine Aminotransferase 19 0 - 30 unit/L [facility] Alkaline Phosphatase 85 35 - 105 unit/L [facility] Bilirubin, Total 0.4 0.2 - 1.3 mg/dL [facility] Est Glomerular Filtration Rate 86 >=60 mL/min/1. 73 m?? [facility] Comment: This patient? s estimated glomerular filtration rate (eGFR) is between 86 mL/min/1.73 m2 (patients with less muscle mass) and 99 mL/min/1.73 m2 (patients with more muscle mass) [...] and symptoms in addition to eGFR. Blood 04/25/2021 7:10 PM EST 04/25/2021 7:21 PM EST Narrative Resulting Agency Comment Spec In Lab Zara Olsen MD CHEMISTRY ORDERABLES Performing Organization Address City/[facility]/ZIP Co de Phone Number [facility] [place] [address] * (ABNORMAL) Differential, Automated (04/25/2021 6:25 PM EST) Neutrophil % 80.9 % [facility] Neutrophil Absolute 12.67(H) 1.70 - 6.10 x10(3)/mc L [facility] Lymph % 9.7 % [facility] Lymphocytes Abs 1.5 0.9 - 3.2 x10(3)/ L [facility] Monocyte % 6.4 % [facility] Monocyte Abs 1.0(H) 0.3 - 0.9 x10(3)/ L [facility] Eos % 0.1 % [facility] Eosinophils Abs 0.0 0.0 - 0.4 x10(3)/[facility] Basophil % 0.2 % [facility] Baso Absolute 0.0 0.0 - 0.1 x10(3)/ L [facility] Immature Gran % 2.70 % [facility] Comment: Immature granulocytes(IG's)percentage and absolute count will include metamyelocytes, myelocytes, and promyelocytes. Blood smears from CBCs yielding IG's will be scanned manually for concordance. If this scan disagrees with the automated IG or if promyelocytes are noted, a manual differential will be performed. Immature Gran Absolute 0.43(H) 0.00 - 0.04 x10(3)/mc L [facility] Blood 04/25/2021 6:25 PM EST 04/25/2021 6:45 PM EST Narrative Resulting Agency Comment Spec In Lab Leti Guerrero MD HEMATOLOGY ORDERABLE S Performing Organization Address City/[facility]/ZIP Co de Phone Number [facility] [place] [address] * (ABNORMAL) Hemogram (04/25/2021 6:25 PM EST) White Blood Cell 15.7(H) 4.0 - 9.5 x10(3)/[facility] Red Blood Cell 3.43(L) 4.00 - 5.21 x10(6)/mc L [facility] Hemoglobin 10.4(L) 11.7 - 15.5 g/dL [facility] Hematocrit 30.2(L) 35.7 - 45.8 % [facility] Mean Cell Volume 88.0 82.6 - 94.4 fL [facility] Mean Cell Hemoglobin 30.3 27.1 - 32.0 pg [facility] Mean Cell Hemoglobin Concentration 34.4 31.7 - 35.0 g/dL [facility] Platelet 323 145 - 357 x10(3)/[facility] RDW Standard Deviation 47.1(H) 37.0 - 46.0 [facility] RDW coefficient of variation 14.7(H) 11.5 - 14.1 % [facility] Mean Platelet Volume 9.3 7.6 - 12.9 fL [facility] NRBC% auto 0.2 % [facility] NRBC Absolute 0.030(H) 0.000 - 0.000 x10(3)/[facility] Blood 04/25/2021 6:25 PM EST 04/25/2021 6:45 PM EST Narrative Resulting Agency Comment Spec In Lab Leti Guerrero MD HEMATOLOGY ORDERABLE S [facility] [place] [address] * EKG 12 Lead (04/25/2021 5:29 PM EST) Ventricular rate 80 BPM MUSE SYSTEM Atrial Rate 80 BPM MUSE SYSTEM P-R Interval 160 ms MUSE SYSTEM QRS Duration 84 ms MUSE SYSTEM Q-T Interval 394 ms MUSE SYSTEM QTC Calculated (Bezet) 454 ms MUSE SYSTEM Calculated P [place] 41 degrees MUSE SYSTEM Calculated R [place] 3 degrees MUSE SYSTEM Calculated T [place] 21 degrees MUSE SYSTEM INTERPRETATION Normal sinus rhythm Cannot rule out Anterior infarct , age undetermined Abnormal ECG No previous ECGs available Confirmed by MD Zak, Ruddy Sarah ([id number]) on 04/26/2021 8:59:20 AM MUSE SYSTEM 04/25/2021 5:29 PM EST 04/26/2021 8:59 AM EST Zara Olsen MD ECG ORDERABLES Performing Organization Address City/[facility]/ZIP Co de Phone Number MUSE SYSTEM * POCT Glucose (04/25/2021 1:53 PM EST) [facility] Glucose, POC 153 65 - 199 mg/dL [facility] Comment: Supplemental ranges: <140 mg/dL before meals <180 mg/dL all other times of the day Blood 04/25/2021 1:53 PM EST 04/25/2021 1:53 PM EST Zara Olsen MD POINT OF CARE TEST O RDERABLES Performing Organization Address City/[facility]/ZIP Co de Phone Number [facility] [place] [address] * (ABNORMAL) Differential, Automated (04/25/2021 12:15 PM EST) [facility] Neutrophil % 83.5 % [facility] Neutrophil Absolute 11.90(H) 1.70 - 6.10 x10(3)/mc L [facility] Lymph % 9.6 % [facility] Lymphocytes Abs 1.4 0.9 - 3.2 x10(3)/mc L [facility] Monocyte % 4.1 % [facility] Monocyte Abs 0.6 0.3 - 0.9 x10(3)/mc L [facility] Eos % 0.0 % [facility] Eosinophils Abs 0.0 0.0 - 0.4 x10(3)/mc L [facility] Basophil % 0.1 % [facility] Baso Absolute 0.0 0.0 - 0.1 x10(3)/[facility] Immature Gran % 2.70 % [facility] Comment: Immature granulocytes(IG's)percentage and absolute count will include metamyelocytes, myelocytes, and promyelocytes. Blood smears from CBCs yielding IG's will be scanned manually for concordance. If this scan disagrees with the automated IG or if promyelocytes are noted, a manual differential will be performed. Immature Gran Absolute 0.39(H) 0.00 - 0.04 x10(3)/[facility] Blood 04/25/2021 12:1 5 PM EST 04/25/2021 12:50 PM EST Narrative Resulting Agency Comment Spec In Lab Leti Guerrero MD HEMATOLOGY ORDERABLE S Performing Organization Address City/State/[facility] Co de Phone Number [facility] [place] [address] * (ABNORMAL) Hemogram (04/25/2021 12:15 PM EST) White Blood Cell 14.3(H) 4.0 - 9.5 x10(3)/ L [facility] Red Blood Cell 3.44(L) 4.00 - 5.21 x10(6)/ L [facility] Hemoglobin 10.6(L) 11.7 - 15.5 g/dL [facility] Hematocrit 30.2(L) 35.7 - 45.8 % [facility] Mean Cell Volume 87.8 82.6 - 94.4 fL [facility] Mean Cell Hemoglobin 30.8 27.1 - 32.0 pg [facility] Mean Cell Hemoglobin Concentration 35.1(H) 31.7 - 35.0 g/dL [facility] Platelet 315 145 - 357 x10(3)/ L [facility] RDW Standard Deviation 47.0(H) 37.0 - 46.0 fL [facility] RDW coefficient of variation 14.8(H) 11.5 - 14.1 % [facility] Mean Platelet Volume 9.4 7.6 - 12.9 fL [facility] NRBC% auto 0.2 % [facility] NRBC Absolute 0.030(H) 0.000 - 0.000 x10(3)/mc L [facility] Blood 04/25/2021 12:1 5 PM EST 04/25/2021 12:50 PM EST Narrative Resulting Agency Comment Spec In Lab Leti Guerrero MD HEMATOLOGY ORDERABLE S [facility] [place] [address] * (ABNORMAL) Comprehensive metabolic panel (non-fasting) (04/25/2021 12:15 PM EST) Glucose 136 65 - 199 mg/dL [facility] Comment:Diabetes: >=200 mg/d L plus symptoms Blood Urea Nitrogen 11 8 - 18 mg/dL [facility] Creatinine 0.76 0.70 - 1.20 mg/dL [facility] Sodium 124(L) 135 - 145 mmol/L [facility] Potassium 4.1 3.5 - 5.0 mmol/L [facility] Comment: Please note: ??Patients with WBC >100,000 may have falsely elevated Potassium levels. ??For accurate Potassium quantification in these patients send serum separator tube (gold top) for subsequent determinations. ??Contact the Clinical Chemistry Laboratory if there are any questions. Chloride 96(L) 98 - 107 mmol/L [facility] Carbon Dioxide 16(L) 22 - 31 mmol/L [facility] Anion Gap 12 5 - 15 mmol/L [facility] Calcium 7.1(L) 8.5 - 10.5 mg/dL [facility] Protein, Total 6.5 6.1 - 8.0 g/dL [facility] Albumin 3.4 3.2 - 5.2 g/dL [facility] Aspartate Aminotransferase 20 0 - 30 unit/L [facility] Alanine Aminotransferase 18 0 - 30 unit/L [facility] Alkaline Phosphatase 88 35 - 105 unit/L [facility] Bilirubin, Total 0.4 0.2 - 1.3 mg/dL [facility] Est Glomerular Filtration Rate 94 >=60 mL/min/1. 73 m?? [facility] Comment: This patient? s estimated glomerular filtration rate (eGFR) is between 94 mL/min/1.73 m2 (patients with less muscle mass) and 109 mL/min/1.73 m2 (patients with more muscle mass) [...] and symptoms in addition to eGFR. Blood 04/25/2021 12:1 5 PM EST 04/25/2021 12:50 PM EST Narrative Resulting Agency Comment Spec In Lab Zara Olsen MD CHEMISTRY ORDERABLES Performing Organization Address City/[facility]/ZIP Co de Phone Number [facility] [place] [address] * POCT Glucose (04/25/2021 10:06 AM EST) Glucose, POC 168 65 - 199 mg/dL [facility] Comment: Supplemental ranges: <140 mg/dL before meals <180 mg/dL all other times of the day Blood 04/25/2021 10:0 6 AM EST 04/25/2021 10:06 AM EST Zara Olsen MD POINT OF CARE TEST O RDERABLES [facility] [place] [address] * US OB Follow Up (04/25/2021 9:52 AM EST) Anatomical Region Laterality Modality Pelvis, Abdomen Ultrasound 04/25/2021 9:47 AM EST Impressions 04/25/2021 10:36 AM EST 3rd Trimester Summary Single intrauterine with a gestational age of 33w 4d based on LMP ??(09/02/20). Composite age based on the current ultrasound alone is 36w 0d. Estimated weight corresponds to the > 95th percentile for 33w 4d. Current growth parameters are consistent with prior dating indicating LGA growth. Amniotic fluid volume is increased, consistent with mild polyhydramnios. Anatomical survey is limited due to the late gestational age. Thank you for letting us participate in the care of this patient. If you are a health care provider and have any questions regarding this report, please contact the number above. For patients who have questions, please contact the health day care home mother that requested your imaging first. ? Bernardo Stuart, Staff Physician Electronically Signed Final Report ?? 04/25/2021 10:35 am Narrative 04/25/2021 10:36 AM EST OBSTETRICS REPORT ?(Signed Final 04/25/2021 10:35 am) PATIENT INFO: ID #: ? [id number] ?: ??[birth year] (46 yrs)(F) Name: ? EDWAR DOMINGUEZ ? Visit Date: 04/25/2021 09:47 am PERFORMED BY: Performed By: ? Kelly Hearn RDMS Attending: ?Bernardo Stuart MD Referred By: ?ZARA Josh OLSEN Location: ? [place] SERVICE(S) PROVIDED: UOBFOL - Efw - Growth ??- [place] - [id number] ?[id number] INDICATIONS: 33 weeks gestation of ?Z3A.33 46 at 33w3d admitted with preeclampsia with severe features VITAL SIGNS: Weight (lb): 213.0 Height: ?5'2 ? BMI: ? 38.95 EVALUATION: Num Of Fetuses: ? 1 Heart Rate(bpm): ??114 Cardiac Activity: ? Observed, normal rhythm Presentation: ? Transverse, head to maternal left Placenta: ? Anterior P. Cord Insertion: ?Within Normal Limits Amniotic Fluid NEREIDA FV: ?Polyhydramnios NEREIDA Sum(cm) ? Largest Pocket(cm) 23.3 ?8.2 RUQ(cm) ? RLQ(cm) ? LUQ(cm) ?LLQ(cm) 7.9 ? 2.6 ? 4.6 ?8.2 --------- BIOMETRY: --------- BPD: ?88.7 ??mm ? G.Age: ?? 35w 6d ?95 ??% OFD: ? 119.0 ??mm HC: ?332.2 ??mm ? G.Age: ?? 37w 6d ?98 ??% AC: ?330.6 ??mm ? G.Age: ?? 37w 0d ?> 99 ??% FL: ? 64.2 ??mm ? G.Age: ?? 33w 1d ?28 ??% HUM: ?58.8 ??mm ? G.Age: ?? 34w 0d ?69 ??% LV: ?9.0 ??mm CI: ?74.5 ??% ? 70 - 86 FL/HC: ? 19.3 ??% ? 19.4 - 21.8 HC/AC: ? 1.00 ?0.96 - 1.11 FL/BPD: ?72.4 ??% ? 71 - 87 FL/AC: ? 19.4 ??% ? 20 - 24 Est. FW: ?2823 ??gm ?6 lb 4 oz ?> 95 ??% OB HISTORY: Blood Type: ?? O+ : ?8 ?SAB: ?? 3 Living: ? 4 GESTATIONAL AGE: LMP: ? 33w 4d ?Date: ??09/02/20 ? CAMILA: ?? 06/09/21 U/S Today: ? 36w 0d ?CAMILA: ?? 05/23/21 Best: ?33w 4d ?? Det. By: ??LMP ??(09/02/20) ?CAMILA: ?? 06/09/21 -------- ANATOMY: -------- Cranium: ? Visualized Cavum: ? Limited views Ventricles: ?Not well seen due to position Choroid Plexus: ?Limited views Cerebellum: ?Not seen due to position Posterior Fossa: ? Not seen due to position Nuchal Fold: ? Not evaluated at this gestational age Face: ?Not seen due to position Heart: ? Not well seen due to position Diaphragm: ? Visualized Stomach: ? Visualized Abdomen: ? Limited Views Abdominal Wall: ?Limited views Cord Vessels: ?3-vessels- WNL Kidneys: ? Visualized Bladder: ? Visualized Spine: ? Limited views Upper Extremities: ? Limited views Lower Extremities: ? Limited views CERVIX UTERUS ADNEXA: Right Ovary Not visualized Left Ovary Not visualized Procedure Note Merna Stuart MD - 04/25/2021 OBSTETRICS REPORT (Signed Final 04/25/2021 10:35 am) PATIENT INFO: ID #: [id number] : [birth year] (46 yrs)(F) Name: EDWAR DOMINGUEZ Visit Date: 04/25/2021 09:47 am PERFORMED BY: Performed By: Kelly Hearn RDMS Attending: Bernardo Stuart MD Referred By: ZARA OLSEN Location: [place] SERVICE(S) PROVIDED: UOBFOL - Efw - Growth - [place] - [id number] INDICATIONS: 33 weeks gestation of Z3A.33 46 at 33w3d admitted with preeclampsia with severe features VITAL SIGNS: Weight (lb): 213.0 Height: 5'2 BMI: 38.95 EVALUATION: Num Of Fetuses: 1 Heart Rate(bpm): 114 Cardiac Activity: Observed, normal rhythm Presentation: Transverse, head to maternal left Placenta: Anterior P. Cord Insertion: Within Normal Limits Amniotic Fluid NEREIDA FV: Polyhydramnios NEREIDA Sum(cm) Largest Pocket(cm) 23.3 8.2 RUQ(cm) RLQ(cm) LUQ(cm) LLQ(cm) 7.9 2.6 4.6 8.2 --------- BIOMETRY: --------- BPD: 88.7 mm G.Age: 35w 6d 95 % OFD: 119.0 mm HC: 332.2 mm G.Age: 37w 6d 98 % AC: 330.6 mm G.Age: 37w 0d > 99 % FL: 64.2 mm G.Age: 33w 1d 28 % HUM: 58.8 mm G.Age: 34w 0d 69 % LV: 9.0 mm CI: 74.5 % 70 - 86 FL/HC: 19.3 % 19.4 - 21.8 HC/AC: 1.00 0.96 - 1.11 FL/BPD: 72.4 % 71 - 87 FL/AC: 19.4 % 20 - 24 Est. FW: 2823 gm 6 lb 4 oz > 95 % OB HISTORY: Blood Type: O+ : 8 SAB: 3 Livin GESTATIONAL AGE: LMP: 33w 4d Date: 09/02/20 CAMILA: 06/09/21 U/S Today: 36w 0d CAMILA: 05/23/21 Best: 33w 4d Det. By: LMP (09/02/20) CAMILA: 06/09/21 -------- ANATOMY: -------- Cranium: Visualized Cavum: Limited views Ventricles: Not well seen due to position Choroid Plexus: Limited views Cerebellum: Not seen due to position Posterior Fossa: Not seen due to position Nuchal Fold: Not evaluated at this gestational age Face: Not seen due to position Heart: Not well seen due to position Diaphragm: Visualized Stomach: Visualized Abdomen: Limited Views Abdominal Wall: Limited views Cord Vessels: 3-vessels- WNL Kidneys: Visualized Bladder: Visualized Spine: Limited views Upper Extremities: Limited views Lower Extremities: Limited views CERVIX UTERUS ADNEXA: Right Ovary Not visualized Left Ovary Not visualized IMPRESSION 3rd Trimester Summary Single intrauterine with a gestational age of 33w 4d based on LMP (09/02/20). Composite age based on the current ultrasound alone is 36w 0d. Estimated weight corresponds to the > 95th percentile for 33w 4d. Current growth parameters are consistent with prior dating indicating LGA growth. Amniotic fluid volume is increased, consistent with mild polyhydramnios. Anatomical survey is limited due to the late gestational age. Thank you for letting us participate in the care of this patient. If you are a health care provider and have any questions regarding this report, please contact the number above. For patients who have questions, please contact the health day care home mother that requested your imaging first. Bernardo Stuart, Staff Physician Electronically Signed Final Report 04/25/2021 10:35 am Zara Olsen MD [facility] OB ORDERABLES * POCT Glucose (04/25/2021 9:07 AM EST) [facility] Signature Glucose, POC 174 65 - 199 mg/dL [facility] Comment: Supplemental ranges: <140 mg/dL before meals <180 mg/dL all other times of the day Blood 04/25/2021 9:07 AM EST 04/25/2021 9:07 AM EST Zara Olsen MD POINT OF CARE TEST O RDERABLES [facility] [place] [address] * POCT Glucose (04/25/2021 6:22 AM EST) Glucose, POC 195 65 - 199 mg/dL [facility] Comment: Supplemental ranges: <140 mg/dL before meals <180 mg/dL all other times of the day Blood 04/25/2021 6:22 AM EST 04/25/2021 6:22 AM EST Zara Olsen MD POINT OF CARE TEST O RDERABLES [facility] [place] [address] * (ABNORMAL) Differential, Automated (04/25/2021 6:05 AM EST) [facility] Neutrophil % 84.6 % [facility] Neutrophil Absolute 11.30(H) 1.70 - 6.10 x10(3)/mc L [facility] Lymph % 9.5 % [facility] Lymphocytes Abs 1.3 0.9 - 3.2 x10(3)/mc L [facility] Monocyte % 1.4 % [facility] Monocyte Abs 0.2(L) 0.3 - 0.9 x10(3)/mc L [facility] Eos % 0.0 % [facility] Eosinophils Abs 0.0 0.0 - 0.4 x10(3)/mc L [facility] Basophil % 0.2 % [facility] Baso Absolute 0.0 0.0 - 0.1 x10(3)/mc L [facility] Immature Gran % 4.30 % [facility] Comment: Immature granulocytes(IG's)percentage and absolute count will include metamyelocytes, myelocytes, and promyelocytes. Blood smears from CBCs yielding IG's will be scanned manually for concordance. If this scan disagrees with the automated IG or if promyelocytes are noted, a manual differential will be performed. Immature Gran Absolute 0.58(H) 0.00 - 0.04 x10(3)/mc L [facility] Blood 04/25/2021 6:05 AM EST 04/25/2021 6:42 AM EST Narrative Resulting Agency Comment Spec In Lab Leti Guerrero MD HEMATOLOGY ORDERABLE S [facility] [place] [address] * (ABNORMAL) Hemogram (04/25/2021 6:05 AM EST) White Blood Cell 13.4(H) 4.0 - 9.5 x10(3)/[facility] Red Blood Cell 3.47(L) 4.00 - 5.21 x10(6)/[facility] Hemoglobin 10.6(L) 11.7 - 15.5 g/dL [facility] Hematocrit 30.5(L) 35.7 - 45.8 % [facility] Mean Cell Volume 87.9 82.6 - 94.4 fL [facility] Mean Cell Hemoglobin 30.5 27.1 - 32.0 pg [facility] Mean Cell Hemoglobin Concentration 34.8 31.7 - 35.0 g/dL [facility] Platelet 300 145 - 357 x10(3)/[facility] RDW Standard Deviation 46.5(H) 37.0 - 46.0 fL [facility] RDW coefficient of variation 14.6(H) 11.5 - 14.1 % [facility] Mean Platelet Volume 9.4 7.6 - 12.9 fL [facility] NRBC% auto 0.1 % [facility] NRBC Absolute 0.020(H) 0.000 - 0.000 x10(3)/ L [facility] Blood 04/25/2021 6:05 AM EST 04/25/2021 6:42 AM EST Narrative Resulting Agency Comment Spec In Lab Leti Guerrero MD HEMATOLOGY ORDERABLE S [facility] [place] [address] * (ABNORMAL) Comprehensive metabolic panel (non-fasting) (04/25/2021 6:05 AM EST) Glucose 213(H) 65 - 199 mg/dL [facility] Comment:Diabetes: >=200 mg/d L plus symptoms Blood Urea Nitrogen 10 8 - 18 mg/dL [facility] Creatinine 0.74 0.70 - 1.20 mg/dL [facility] Sodium 127(L) 135 - 145 mmol/L [facility] Potassium 3.7 3.5 - 5.0 mmol/L [facility] Comment: Please note: ??Patients with WBC >100,000 may have falsely elevated Potassium levels. ??For accurate Potassium quantification in these patients send serum separator tube (gold top) for subsequent determinations. ??Contact the Clinical Chemistry Laboratory if there are any questions. Chloride 99 98 - 107 mmol/L [facility] Carbon Dioxide 14(L) 22 - 31 mmol/L [facility] Anion Gap 14 5 - 15 mmol/L [facility] Calcium 7.4(L) 8.5 - 10.5 mg/dL [facility] Comment:result rechecked-michael Protein, Total 6.4 6.1 - 8.0 g/dL [facility] Albumin 3.5 3.2 - 5.2 g/dL [facility] Aspartate Aminotransferase 18 0 - 30 unit/L [facility] Alanine Aminotransferase 19 0 - 30 unit/L [facility] Alkaline Phosphatase 86 35 - 105 unit/L [facility] Bilirubin, Total 0.4 0.2 - 1.3 mg/dL [facility] Est Glomerular Filtration Rate 97 >=60 mL/min/1. 73 m?? [facility] Comment: This patient? s estimated glomerular filtration rate (eGFR) is between 97 mL/min/1.73 m2 (patients with less muscle mass) and 113 mL/min/1.73 m2 (patients with more muscle mass) [...] and symptoms in addition to eGFR. Blood 04/25/2021 6:05 AM EST 04/25/2021 6:42 AM EST Narrative Resulting Agency Comment Spec In Lab Zara Olsen MD CHEMISTRY ORDERABLES Performing Organization Address [facility] Phone Number [facility] [place] [address] * (ABNORMAL) Magnesium (04/25/2021 3:50 AM EST) Magnesium 1.61(H) 0.69 - 1.07 mmol/L [facility] Blood 04/25/2021 3:50 AM EST 04/25/2021 4:02 AM EST Narrative Resulting Agency Comment Spec In Lab Zara Olsen MD CHEMISTRY ORDERABLES Performing Organization Address [facility] Phone Number [facility] [place] [address] * (ABNORMAL) POCT Glucose (04/25/2021 3:13 AM EST) Glucose, POC 237(H) 65 - 199 mg/dL [facility] Comment: Supplemental ranges: <140 mg/dL before meals <180 mg/dL all other times of the day Blood 04/25/2021 3:13 AM EST 04/25/2021 3:13 AM EST Zara Olsen MD POINT OF CARE TEST O RDERABLES Performing Organization Address [facility] [place] Phone Number [facility] [place] [address] * (ABNORMAL) Protein/Creatinine Ratio, urine (04/25/2021 1:09 AM EST) Creatinine, Urine 57 mg/dL [facility] Protein, Urine 16(H) 0 - 12 mg/dL [facility] Protein / Creatinine Ratio, Urine 0.3 ratio [facility] Urine 04/25/2021 1:09 AM EST 04/25/2021 6:40 AM EST Narrative Resulting Agency Comment Spec In Lab Zara Olsen MD URINE ORDERABLES Performing Organization Address City/[facility]/ZIP Co de Phone Number [facility] [place] [address] * (ABNORMAL) Magnesium (04/25/2021 12:31 AM EST) Pathologist [facility] Magnesium 1.50(H) 0.69 - 1.07 mmol/L [facility] Blood Venous Draw / Unknown 04/25/2021 12:31 AM EST 04/25/2021 12:58 AM EST Narrative Resulting Agency Comment Spec In Lab Leti Guerrero MD CHEMISTRY ORDERABLES Performing Organization Address [facility]/ZIP Co de Phone Number [facility] [place] [address] * Type and Screen Validity (04/25/2021 12:31 AM EST) T&S only valid at [facility] LABORATORY Comment:This Type and Screen result is only valid at the [facility] Blood 04/25/2021 12:3 1 AM EST 04/25/2021 12:53 AM EST Narrative Resulting Agency Comment Spec In Lab Leti Guerrero MD BLOOD BANK LAB ORDER MITRA Performing Organization Address City/[facility]/ZIP Co de Phone Number [facility] [place] [address] * ABORH Recheck Status (04/25/2021 12:31 AM EST) ABOR[facility] Type Recheck Completed [facility] Blood 04/25/2021 12:3 1 AM EST 04/25/2021 12:53 AM EST Narrative Resulting Agency Comment Spec In Lab Leti Guerrero MD BLOOD BANK LAB ORDER MITRA [facility] [place] [address] * (ABNORMAL) Differential, Automated (04/25/2021 12:31 AM EST) Neutrophil % 82.6 % [facility] Neutrophil Absolute 10.15(H) 1.70 - 6.10 x10(3)/mc L [facility] Lymph % 11.3 % [facility] Lymphocytes Abs 1.4 0.9 - 3.2 x10(3)/mc L [facility] Monocyte % 2.4 % [facility] Monocyte Abs 0.3 0.3 - 0.9 x10(3)/mc L [facility] Eos % 0.3 % [facility] Eosinophils Abs 0.0 0.0 - 0.4 x10(3)/mc L [facility] Basophil % 0.2 % [facility] Baso Absolute 0.0 0.0 - 0.1 x10(3)/mc L [facility] Immature Gran % 3.20 % [facility] Comment: Immature granulocytes(IG's)percentage and absolute count will include metamyelocytes, myelocytes, and promyelocytes. Blood smears from CBCs yielding IG's will be scanned manually for concordance. If this scan disagrees with the automated IG or if promyelocytes are noted, a manual differential will be performed. Immature Gran Absolute 0.39(H) 0.00 - 0.04 x10(3)/mc L [facility] Blood 04/25/2021 12:3 1 AM EST 04/25/2021 12:53 AM EST Narrative Resulting Agency Comment Spec In Lab Leti Guerrero MD HEMATOLOGY ORDERABLE S [facility] [place] [address] * (ABNORMAL) Hemogram (04/25/2021 12:31 AM EST) White Blood Cell 12.3(H) 4.0 - 9.5 x10(3)/mc L [facility] Red Blood Cell 3.59(L) 4.00 - 5.21 x10(6)/mc L [facility] Hemoglobin 11.0(L) 11.7 - 15.5 g/dL [facility] Hematocrit 31.7(L) 35.7 - 45.8 % [facility] Mean Cell Volume 88.3 82.6 - 94.4 fL [facility] Mean Cell Hemoglobin 30.6 27.1 - 32.0 pg [facility] Mean Cell Hemoglobin Concentration 34.7 31.7 - 35.0 g/dL [facility] Platelet 298 145 - 357 x10(3)/mc L [facility] RDW Standard Deviation 46.1(H) 37.0 - 46.0 fL [facility] RDW coefficient of variation 14.6(H) 11.5 - 14.1 % [facility] Mean Platelet Volume 9.2 7.6 - 12.9 fL [facility] NRBC% auto 0.2 % [facility] NRBC Absolute 0.020(H) 0.000 - 0.000 x10(3)/ L [facility] Blood 04/25/2021 12:3 1 AM EST 04/25/2021 12:53 AM EST Narrative Resulting Agency Comment Spec In Lab Leti Guerrero MD HEMATOLOGY ORDERABLE S Performing Organization Address City/[facility]/ZIP Co de Phone Number [facility] [place] [address] * Antibody screen (04/25/2021 12:31 AM EST) Ab Screen Interp Negative [facility] Expires at [id number] on: 04/28/2021 [facility] Blood 04/25/2021 12:3 1 AM EST 04/25/2021 12:53 AM EST Narrative Resulting Agency Comment Spec In Lab Leti Guerrero MD BLOOD BANK LAB ORDER MITRA Performing Organization Address City/[facility]/ZIP Co de Phone Number [facility] [place] [address] * ABO/Rh Typing (04/25/2021 12:31 AM EST) ABORH Type O Pos [facility] Blood 04/25/2021 12:3 1 AM EST 04/25/2021 12:53 AM EST Narrative Resulting Agency Comment Spec In Lab Leti Guerrero MD BLOOD BANK LAB ORDER MITRA Performing Organization Address City/[facility]/ZIP Co de Phone Number [facility] [place] [address] * (ABNORMAL) Comprehensive metabolic panel (non-fasting) (04/25/2021 12:31 AM EST) [facility] Signature Glucose 141 65 - 199 mg/dL [facility] Comment:Diabetes: >=200 mg/d L plus symptoms Blood Urea Nitrogen 11 8 - 18 mg/dL [facility] Creatinine 0.73 0.70 - 1.20 mg/dL [facility] Sodium 130(L) 135 - 145 mmol/L [facility] Potassium 3.8 3.5 - 5.0 mmol/L [facility] Comment: Please note: ??Patients with WBC >100,000 may have falsely elevated Potassium levels. ??For accurate Potassium quantification in these patients send serum separator tube (gold top) for subsequent determinations. ??Contact the Clinical Chemistry Laboratory if there are any questions. Chloride 101 98 - 107 mmol/L [facility] Carbon Dioxide 15(L) 22 - 31 mmol/L [facility] Anion Gap 14 5 - 15 mmol/L [facility] Calcium 8.4(L) 8.5 - 10.5 mg/dL [facility] Protein, Total 6.8 6.1 - 8.0 g/dL [facility] Albumin 3.6 3.2 - 5.2 g/dL [facility] Aspartate Aminotransferase 20 0 - 30 unit/L [facility] Alanine Aminotransferase 19 0 - 30 unit/L [facility] Alkaline Phosphatase 95 35 - 105 unit/L [facility] Bilirubin, Total 0.4 0.2 - 1.3 mg/dL [facility] Est Glomerular Filtration Rate 99 >=60 mL/min/1. 73 m?? [facility] Comment: This patient? s estimated glomerular filtration rate (eGFR) is between 99 mL/min/1.73 m2 (patients with less muscle mass) and 114 mL/min/1.73 m2 (patients with more muscle mass) [...] and symptoms in addition to eGFR. Blood 04/25/2021 12:3 1 AM EST 04/25/2021 12:53 AM EST Narrative Resulting Agency Comment Spec In Lab Zara Olsen MD CHEMISTRY ORDERABLES [facility] [place] [address] * Group B Streptococcus Screen (04/24/2021 11:59 PM EST) GBS Screen Pos [facility] Vaginal/Rectal 04/24/2021 11 :59 PM EST 04/25/2021 2:24 AM EST Comment:Penicillin Allergy?- >No Narrative Resulting Agency Comment Spec In Lab Leti Guerrero MD MICROBIOLOGY - [facility] AL ORDERABLES [facility] [place] [address] * COVID-19 PCR (04/24/2021 11:59 PM EST) SARS-CoV-2 RNA (Rapid) Not Detected Not Detected [facility] Comment: This result should be interpreted in combination with the clinical observations, patient history and epidemiological information. For testing of asymptomatic individuals, assay performance characteristics and clinical utility have not been evaluated. Testing for SARS-CoV-2 (Severe acute respiratory syndrome coronavirus 2, formerly known as 2019 novel coronavirus or 2019-nCoV) to aid in the diagnosis of COVID-19 is performed using the Simplexa COVID-19 Direct Assay by [employer] as authorized by the FDA issued Emergency Use Authorization (EUA). This assay is intended for In-vitro Diagnostic (IVD) use with nasopharyngeal swabs collected from individuals meeting the CDC criteria for testing. The assay is performed based on the instructions for use and additional guidance provided by the FDA. Testing is performed in the Microbiology Laboratory within the Department of Pathology and Laboratory Medicine at [facility], certified under the Clinical Laboratory Improvement Amendments of 1988 (CLIA), 42 U.S.C. section 263a, to perform high complexity tests. Assay performance has been verified according to clinical laboratory regulatory requirements. Test results are provided above. A result of Not Detected indicates that the viral RNA target is not present but does not preclude SARS-CoV-2 infection. False negative results may occur if a specimen is improperly collected, transported or handled; if amplification inhibitors are present; or if inadequate numbers of viral particles are present in the specimen. A result of Detected suggests a current or recent infection and the patient is presumed to be infected. Positive and negative predictive values for this test are highly dependent on disease prevalence. A result of Invalid indicates the inability to conclusively determine the presence or absence of SARS-CoV-2 RNA in the sample which can be due to a variety of factors. Recollection is recommended in the case of an invalid result. CDC COVID-19 criteria for testing on human specimens and clinical management guidance information are available at the CDC Coronavirus Disease 2019 (COVID-19) webpage under Information for Healthcare Professionals (https://www.cdc.gov/coronavirus/2019-ncov/hcp/index.html). Additional information about this and other EUA tests can be found in provider and patient fact sheets at the following FDA website: https://www.fda.gov/medical-devices/nrazjdhjway-ggrltub-2451-thoxb-26-bwbxuingq- use-a tbdzqrmxbpnyt-aklmecs-skdxcnq/dejlf-qdwmghhhptz-pexb SARS-CoV-2 Source [address] [facility] Swab [facility] Nasopharyngeal Swab 04/25/19 11:59 PM EST 04/25/2021 1:38 AM EST Comment:Symptoms->Surveillan ce Narrative Resulting Agency Comment Spec In Lab Zara Olsen MD MICROBIOLOGY - GENER AL ORDERABLES Performing Organization Address [facility] Co de Phone Number [facility] [place] [address] * (ABNORMAL) Group B Strep Culture Screen (04/24/2021 11:59 PM EST) Group B Streptococcus Culture Beta Hemolytic Streptococci, Group B isolated(A) [facility] Organism Beta Hemolytic Streptococci, Group B(A) [facility] Vaginal/Rectal 04/24/2021 11 :59 PM EST 04/25/2021 2:24 AM EST Comment:Penicillin Allergy?- >No Narrative Resulting Agency Comment Spec In Lab Zara Olsen MD MICROBIOLOGY - GENER AL ORDERABLES Performing Organization Address [facility] Co de Phone Number [facility] [place] [address] documented in this encounter Visit Diagnoses Diagnosis Severe pre-eclampsia in third trimester Severe pre-eclampsia, antepartum History of cardiac arrhythmia Personal history of other diseases of circulatory system Stage 3a chronic kidney disease Spontaneous Unspecified spontaneous without mention of complication Preeclampsia, severe Severe pre-eclampsia, unspecified as to episode of care AMA (advanced maternal age) multigravida 35+ Elderly multigravida with antepartum condition or complication BMI 36.0-36.9,adult Body Mass Index 36.0-36.9, adult CKD (chronic kidney disease) stage 3, GFR 30-59 ml/min Chronic kidney disease, Stage III (moderate) History of cardiac arrhythmia Personal history of other diseases of circulatory system History of premature rupture of membranes (PROM) in previous , currently , first trimester Hypertension Unspecified essential hypertension Ulcerative colitis Ulcerative colitis, unspecified documented in this encounter Admitting Diagnoses Diagnosis Preeclampsia, severe Severe pre-eclampsia, unspecified as to episode of care documented in this encounter Administered Medications Inactive Administered Medications - up to 3 most recent administrations Medication Order MAR Action Action Date Dose Rate Site acetaminophen (Tylenol) tablet 1,000 mg 1,000 mg, Oral, ONCE, 1 dose, On Fri04/25/21 at 1115, Maximum dose of acetaminophen is 4000 mg from all sources in 24 hours. When ordered for pain, acetaminophen should be given even when other ordered pain medications are indicated. , Routine Given 04/25/2021 10:41 AM EST 1,000 mg acetaminophen (Tylenol) tablet 650 mg 650 mg, Oral, EVERY 6 HOURS SCHEDULED, First dose on Fri04/29/21 at 1200, Until Discontinued, Maximum dose of acetaminophen is 4,000 mg from all sources in 24 hours. Both acetaminophen and ibuprofen, if ordered, should be given even when other ordered pain medications are indicated., Routine Given 05/04/2021 11:43 AM EST 650 mg Given 05/04/2021 4:06 AM EST 650 mg Given 05/03/2021 9:09 PM EST 650 mg azithromycin (Zithromax) 500 mg in sodium chloride 0.9% 255 mL injection 500 mg 500 mg, Intravenous, ONCE, 1 dose, On Fri04/29/21 at 0930, Administer over 60 Minutes, Indication for (Active or Suspected): Prophylaxis New Bag 04/29/2021 9:30 AM EST 500 mg 255.1 m L/hr betamethasone acetate-betamethasone sodium phosphate (Celestone) (6 mg/mL) injection 12 mg 12 mg, Intramuscular, ONCE, 1 dose, On Fri04/25/21 at 2100, Routine Given 04/25/2021 9:15 PM EST 12 mg xaxtqalowb-smenxpewueqta-fbnnixn e (Esgic) per tablet 1 tablet 1 tablet, Oral, EVERY 6 HOURS PRN, Starting on Fri04/25/21 at 1636, Until Fri04/29/21 at 1102, Headaches, Maximum dose of acetaminophen is 4000 mg from all sources in 24 hours., Routine Given 04/25/2021 5:13 PM EST 1 tablet calcium carbonate (Tums) chewable tablet 1,000 mg 1,000 mg (2 tablet), Oral, EVERY 4 HOURS PRN, Starting on Fri04/24/21 at 2334, Until Fri05/04/21 at 2050, Heartburn, If both calcium carbonate (TUMS) and alum-mag hydroxide-simeth (MAALOX) ordered, administer calcium carbonate (TUMS) first, if ineffective administer alum-mag hydroxide-simeth (MAALOX)., Routine Given 04/26/2021 9:07 PM EST 1,000 mg Given 04/25/2021 10:50 AM EST 1,000 mg ceFAZolin (Ancef) 2 g in dextrose 5% 100 mL infusion 2 g, Intravenous, ONCE, 1 dose, On Fri04/29/21 at 0930, Administer over 30 Minutes, Indication for (Active or Suspected): Prophylaxis New Bag 04/29/2021 9:30 AM EST 2 g 200 mL/hr citric acid-sodium citrate (Bicitra) (100 MG-66.8 mg/mL) oral liquid 30 mL 30 mL, Oral, ONCE, 1 dose, On Fri04/29/21 at 0930, Routine Given 04/29/2021 8:49 AM EST 30 mLs diphenhydrAMINE (Benadryl) capsule 25 mg 25 mg, Oral, NIGHTLY PRN, Starting on Fri04/24/21 at 2334, Until Fri05/04/21 at 2050, Itching, to promote drowsiness, Routine enoxaparin (Lovenox) (40 mg/0.4 mL) subcutaneous injection 40 mg 40 mg, Subcutaneous, EVERY 24 HOURS SCHEDULED (Daily), First dose on Fri04/30/21 at 0900, Until Discontinued, Routine Given 05/03/2021 8:07 AM EST 40 mg Given 05/02/2021 8:04 AM EST 40 mg Given 05/01/2021 8:25 AM EST 40 mg Ri ght Lower Quadrant ibuprofen (Advil) tablet 600 mg 600 mg, Oral, EVERY 6 HOURS PRN, Starting on Fri04/30/21 at 1247, Until Fri05/04/21 at 2050, Pain, Administer orally with milk or food to minimize GI irritation. Maximum dose of 3,200 mg from all sources in 24 hours, Routine Given 05/04/2021 11:44 AM EST 600 mg Given 05/03/2021 9:08 PM EST 600 mg Given 05/03/2021 12:59 PM EST 600 mg insulin lispro (HumaLOG;Admelog) (100 unit/mL) subcutaneous injection vial 1-3 Units 1-3 Units, Subcutaneous, 3 TIMES DAILY BEFORE MEALS, First dose on Fri04/25/21 at 0730, Until Discontinued, Sensitive to insulin lean patient or total daily dose of all insulin needed to achieve glycemic control less than 30 units Give 1 unit for every 30 mg/dL over target. 1 hour post prandial-- Target blood glucose less than 140 mg/dL., Routine Given 04/27/2021 11:30 AM EST 0.5 Units Abdominal Tissue Given 04/26/2021 10:40 AM EST 1 Units Given 04/25/2021 9:10 AM EST 1 Units insulin NPH human isophane (HumuLin N,NovoLIN N) (100 unit/mL) subcutaneous injection vial 4 Units 4 Units, Subcutaneous, NIGHTLY, First dose on Fri04/25/21 at 0230, Until Discontinued, Basal insulin. At 2100 give 4 units., Routine Given 04/25/2021 9:14 PM EST 4 Units Given 04/25/2021 3:31 AM EST 4 Units insulin NPH human isophane (HumuLin N,NovoLIN N) (100 unit/mL) subcutaneous injection vial 4 Units 4 Units, Subcutaneous, ONCE, 1 dose, On Fri04/25/21 at 1130, Routine Given 04/25/2021 10:42 AM EST 4 Units insulin NPH human isophane (HumuLin N,NovoLIN N) (100 unit/mL) subcutaneous injection vial 4 Units 4 Units, Subcutaneous, NIGHTLY, First dose (after last modification) on 04/28/21 at 2100, Until Discontinued, Basal insulin. At 2100 give 4 units., Routine Given 04/28/2021 9:16 PM EST 4 Units insulin NPH human isophane (HumuLin N,NovoLIN N) (100 unit/mL) subcutaneous injection vial 8 Units 8 Units, Subcutaneous, NIGHTLY, First dose (after last modification) on Kimberly 04/26/21 at 2100, Until Discontinued, Basal insulin. At 2100 give 4 units., Routine Given 04/27/2021 9:10 PM EST 8 Units Right Arm Given 04/26/2021 8:50 PM EST 8 Units Ri ght Arm iron sucrose (Venofer) 300 mg in sodium chloride 0.9% 115 mL infusion 300 mg, Intravenous, ONCE, 1 dose, On Fri05/01/21 at 0915, Administer over 90 Minutes, Patients should be closely monitored for signs of hypersensitivity during and for at least 30 min after each administration. New Bag 05/01/2021 10:27 AM EST 300 mg 76.7 mL/hr ketorolac (Toradol) (30 mg/mL) injection 15 mg 15 mg, Intravenous, EVERY 6 HOURS, 5 doses, First dose on Fri04/29/21 at 1200, Last dose on Fri04/30/21 at 1200, Routine Given 04/30/2021 5:19 AM EST 15 mg Given 04/30/2021 12:11 AM EST 15 mg Given 04/29/2021 5:42 PM EST 15 mg labetaloL (Normodyne) (5 mg/mL) injection solution 20 mg 20 mg, Intravenous, ONCE, 1 dose, On Fri05/02/21 at 0115, STAT Given 05/02/2021 12:33 AM EST 20 mg labetaloL (Normodyne) (5 mg/mL) injection solution 20 mg 20 mg, Intravenous, ONCE, 1 dose, On Fri05/02/21 at 0415, STAT Given 05/02/2021 3:29 AM EST 20 mg labetaloL (Normodyne) (5 mg/mL) injection solution 20 mg 20 mg, Intravenous, ONCE, 1 dose, On Fri05/02/21 at 0615, STAT Given 05/02/2021 5:27 AM EST 20 mg labetaloL (Normodyne) tablet 200 mg 200 mg, Oral, 2 TIMES DAILY, First dose on Fri04/25/21 at 0900, Until Discontinued, Routine Given 04/29/2021 8:14 AM EST 200 mg Given 04/28/2021 9:11 PM EST 200 mg Given 04/28/2021 8:16 AM EST 200 mg labetaloL (Normodyne) tablet 200 mg 200 mg, Oral, 2 TIMES DAILY, First dose on Fri04/30/21 at 2100, Until Discontinued, Routine Given 05/01/2021 8:24 AM EST 200 mg Given 04/30/2021 8:49 PM EST 200 mg labetaloL (Normodyne) tablet 400 mg 400 mg, Oral, 2 TIMES DAILY, First dose (after last modification) on Fri05/01/21 at 2100, Until Discontinued, Routine Given 05/01/2021 8:07 PM EST 400 mg labetaloL (Normodyne) tablet 400 mg 400 mg, Oral, 3 TIMES DAILY, First dose (after last modification) on Fri05/02/21 at 0515, Until Discontinued, Routine Given 05/02/2021 2:51 PM EST 400 mg Given 05/02/2021 8:47 AM EST 400 mg Given 05/02/2021 5:06 AM EST 400 mg labetaloL (Normodyne) tablet 600 mg 600 mg, Oral, 3 TIMES DAILY, First dose (after last modification) on Fri05/02/21 at 2100, Until Discontinued, Routine Given 05/04/2021 3:41 PM EST 600 mg Given 05/04/2021 8:30 AM EST 600 mg Given 05/03/2021 9:08 PM EST 600 mg lactated ringers infusion 75 mL/hr, Intravenous, CONTINUOUS, Starting on Fri04/25/21 at 0030, Until Fri04/25/21 at 1724 New Bag 04/25/2021 10:16 AM EST 75 mL/hr 75 mL/hr New Bag 04/24/2021 11:54 PM EST 75 mL/hr 75 mL/hr lactated ringers infusion 75 mL/hr, Intravenous, CONTINUOUS, Starting on Fri04/28/21 at 0800, Until Fri05/04/21 at 2050 New Bag 04/30/2021 8:34 AM EST 75 mL/hr 75 mL /hr New Bag 04/29/2021 6:53 PM EST 75 mL/hr 75 mL/hr New Bag 04/29/2021 11:41 AM EST 75 mL/hr 75 mL/hr lidocaine (pf) (Xylocaine) (10 mg/mL) 1% injection 300 mg 300 mg, Subcutaneous, ONCE PRN, 1 dose, Starting on Fri04/24/21 at 2328, Until Fri05/04/21 at 2050, Repair of laceration following delivery., Routine lidocaine (Xylocaine) 1% (10 mg/mL) injection 3 mg 3 mg (0.3 mL), Subcutaneous, ONCE PRN, 1 dose, Starting on Fri04/24/21 at 2328, Until Fri05/04/21 at 2050, for discomfort with PIV insertion, Routine lidocaine (Xylocaine) 2 % jelly 1 Bottle 1 Bottle, Topical (Top), ONCE PRN, Pain, Repair of laceration following delivery and/or prior to urinary catheter placement., Starting on Fri04/24/21 at 2328, 1 dose, Until Fri05/04/21 at 205 magnesium sulfate 20 g in sterile water 500 mL infusion 2 g/hr (50 mL/hr), Intravenous, CONTINUOUS, Starting on Fri04/25/21 at 0030, Until Fri04/25/21 at 1724, Routine New Bag 04/25/2021 10:16 AM EST 2 g/hr 50 mL/hr New Bag 04/24/2021 11:55 PM EST 2 g/hr 50 mL/hr magnesium sulfate 20 g in sterile water 500 mL infusion 2 g/hr (50 mL/hr), Intravenous, CONTINUOUS, Starting on 04/28/21 at 1345, Until Fri04/30/21 at 1057, Routine New Bag 04/30/2021 4:32 AM EST 2 g/hr 50 mL/hr New Bag 04/29/2021 6:53 PM EST 2 g/hr 50 mL/hr New Bag 04/29/2021 8:25 AM EST 2 g/hr 50 mL/hr mesalamine ER (Apriso) capsule 1.5 g 1.5 g, Oral, DAILY, First dose on Fri04/25/21 at 0900, Until Discontinued, DO NOT CRUSH OR OPEN, Routine Given 04/28/2021 8:16 AM EST 1.5 g Given 04/27/2021 9:00 AM EST 1.5 g Given 04/26/2021 8:22 AM EST 1.5 g mesalamine ER (Apriso) capsule 1.5 g 1.5 g, Oral, DAILY, First dose on Fri04/29/21 at 2100, Until Discontinued, DO NOT CRUSH OR OPEN, Routine Given 05/04/2021 8:30 AM EST 1.5 g Given 05/03/2021 8:08 AM EST 1.5 g Given 05/02/2021 8:02 AM EST 1.5 g NIFEdipine CC (Adalat CC) tablet 30 mg 30 mg, Oral, 2 TIMES DAILY, First dose on Kimberly 05/03/21 at 0545, Until Discontinued, DO NOT CRUSH OR OPEN, Routine Given 05/04/2021 8:30 AM EST 30 mg Given 05/03/2021 9:08 PM EST 30 mg Given 05/03/2021 5:21 AM EST 30 mg ondansetron (pf) (Zofran) (2 mg/mL) injection 4 mg 4 mg, Intravenous, EVERY 8 HOURS PRN, Starting on Tu04/24/21 at 2334, Until Fri05/04/21 at 2050, Nausea, Vomiting, May repeat in 30 minutes if inefffective Given 04/25/2021 12:19 AM EST 4 mg oxyCODONE (Roxicodone) tablet 10 mg 10 mg, Oral, EVERY 4 HOURS PRN, Starting on Fri04/29/21 at 1100, Until Fri05/04/21 at 2050, Pain, for pain scale 9-10, Routine oxyCODONE (Roxicodone) tablet 5 mg 5 mg, Oral, EVERY 4 HOURS PRN, Starting on Fri04/29/21 at 1100, Until Fri05/04/21 at 2050, Pain, for pain scale 6-8, Routine oxytocin (Pitocin) (0.06 units/mL) in sodium chloride 0.9% 500 mL infusion 1-30 cheko-units/min (1-30 mL/hr), Intravenous, CONTINUOUS, Starting on 04/28/21 at 1745, Until 04/29/21 at 0849, Piggyback into Lactated Ringers; Start at 2 milliunits/minute and increase by 2 milliunits/minutes every 30 minutes to achieve contractions that are every 2-3 minutes, lasting 60-90 seconds with 1 minute resting tone between contractions palpating strong. Notify OB Provider when oxytocin dose needs to exceed 20 milliunits/minute. Oxytocin may not be initiated until: - 1 hour after Cervidil is removed - 4 hours after last minute misoprostol dose is given Do not titrate pitocin above 2mu/min while oneill balloon is in place, Routine Rate/Dose Verify 04/29/2021 7:38 AM EST 16 cheko-units/min 16 mL/hr Rate/Dose Change 04/29/2021 6:56 AM EST 16 cheko-units/min 16 mL/hr Rate/Dose Change 04/29/2021 6:15 AM EST 14 cheko-units/min 14 mL/hr penicillin G potassium (Pfizerpen) 3 million units in dextrose 5% 50 mL infusion 3 Million Units, Intravenous, EVERY 4 HOURS SCHEDULED, First dose on 04/28/21 at 2000, Until Discontinued, Administer over 60 Minutes, Warning Vesicant/Irritant Medication , Indication for (Active or Suspected): Prophylaxis New Bag 04/29/2021 5:03 AM EST 3 Million Units 50 mL/hr New Bag 04/29/2021 12:57 AM EST 3 Million Units 50 mL/h r penicillin G potassium (Pfizerpen) 5 million unit vial attach to sodium chloride 0.9% 100 mL Mini-Bag Plus 5 Million Units, Intravenous, ONCE, 1 dose, On 04/28/21 at 1700, Administer over 60 Minutes, Warning Vesicant/Irritant Medication , Indication for (Active or Suspected): Prophylaxis New Bag 04/28/2021 9:11 PM EST 5 Million Units 100 mL/hr polyethylene glycoL (Miralax) packet 17 g 17 g, Oral, DAILY PRN, Starting on Fri04/29/21 at 1101, Until Fri05/04/21 at 2050, Constipation, Routine vitamin 27 & dknwygm-tzwr-DU 60 mg iron-1 mg per tablet Tab 1 tablet 1 tablet, Oral, DAILY, First dose on Fri04/25/21 at 0900, Until Discontinued, Routine Given 05/02/2021 8:03 AM EST 1 tablet Given 05/01/2021 8:24 AM EST 1 tablet Given 04/30/2021 8:13 AM EST 1 tablet prochlorperazine (Compazine) (5 mg/mL) injection 10 mg 10 mg, Intravenous, ONCE, 1 dose, On Fri04/25/21 at 1730, Routine Given 04/25/2021 5:14 PM EST 10 mg senna-docusate (Pericolace) 8.6-50 mg per tablet 2 tablet 2 tablet, Oral, 2 TIMES DAILY, First dose on Fri04/29/21 at 1200, Until Discontinued, Administer to achieve 1 soft bowel movement daily without straining , Routine Given 05/01/2021 8:24 A M EST 2 tablets Given 04/30/2021 8:48 PM EST 2 tablets Given 04/30/2021 8:13 AM EST 2 tablets simethicone (Mylicon) chewable tablet 80 mg 80 mg, Oral, 4 TIMES DAILY PRN, Starting on Fri04/29/21 at 1101, Until Fri05/04/21 at 2050, Cramping, gas pain, Routine sodium chloride 0.9 % (flush) (BD PosiFlush Normal Saline 0.9) flush 5 mL 5 mL, Intravenous, 2 TIMES DAILY, First dose on Fri04/25/21 at 0030, Until Discontinued, Routine Given 05/04/2021 4:06 AM EST 5 mLs Given 05/01/2021 8:08 PM EST 5 mLs Given 05/01/2021 8:27 AM EST 5 mLs sodium chloride 0.9 % (flush) (BD PosiFlush Normal Saline 0.9) flush 5-20 mL 5-20 mL, Intravenous, EVERY 1 MIN PRN, Starting on Fri04/24/21 at 2328, Until Fri05/04/21 at 2050, flush, Flush pertains to all indwelling lines. Flush per protocol found in the job aid using the link provided on this medication record., Routine Given 05/02/2021 5:23 AM EST 10 mLs Given 05/02/2021 3:25 AM EST 10 mLs Given 05/02/2021 12:30 AM EST 10 mLs terbutaline (Brethine) (1 mg/mL) injection 0.25 mg 0.25 mg, Subcutaneous, ONCE, 1 dose, On 3/5/22 at 1545, Routine Given 04/28/2021 2:59 PM EST 0.25 mg Left Quadriceps terbutaline (Brethine) 1 mg/mL injection 1 dose, Starting on 04/28/21 at 1455, Until 04/28/21 at 1459, MARISA DENNY: cabinet override documented in this encounter Active and Recently Administered Medications Times are shown in EST. Scheduled Medication Order 05/02/2021 05/03/2021 05/04/2021 acetaminophen (Tylenol) tablet 650 mg 650 mg, Oral, EVERY 6 HOURS SCHEDULED, First dose on Fri04/29/21 at 1200, Until Discontinued, Maximum dose of acetaminophen is 4,000 mg from all sources in 24 hours. Both acetaminophen and ibuprofen, if ordered, should be given even when other ordered pain medications are indicated., Routine 0500 (Not Given - Provider: Debo Maynard RN - Reason: Patient/family refused)1116 (Given - Provider: Susana Murillo RN)1854 (Given - Provider: Susana Murillo RN) 0304 (Given - Provider: Debo Maynard RN)0900 (Due - Provider: Debo Maynard RN)1100 (Due - Provider: Gorge Thomas Adam)1608 (Given - Provider: Diana Moulton RN)2109 (Given - Provider: Debo Maynard RN) 0406 (Given - Provider: Debo Maynard RN)1143 (Given - Provider: Diana Moulton RN)1700 (Due - Provider: Gorge Thomas [facility]) enoxaparin (Lovenox) (40 mg/0.4 mL) subcutaneous injection 40 mg 40 mg, Subcutaneous, EVERY 24 HOURS SCHEDULED (Daily), First dose on 04/30/21 at 0900, Until Discontinued, Routine 0804 (Given - Provider: Carla Baig) 0807 (Given - Provider: Diana Moulton RN) 0900 (Not Given - Provider: Diana Moulton RN - Reason: Patient/family refused) labetaloL (Normodyne) (5 mg/mL) injection solution 20 mg (COMPLETED) 20 mg, Intravenous, ONCE, 1 dose, On 05/02/21 at 0115, STAT 0033 (Given - Provider: Debo Maynard, LANE) labetaloL (Normodyne) (5 mg/mL) injection solution 20 mg (COMPLETED) 20 mg, Intravenous, ONCE, 1 dose, On Fri05/02/21 at 0415, STAT 0329 (Given - Provider: Debo Maynard, RN) labetaloL (Normodyne) (5 mg/mL) injection solution 20 mg (COMPLETED) 20 mg, Intravenous, ONCE, 1 dose, On Fri05/02/21 at 0615, STAT 0527 (Given - Provider: Debo Maynard, LANE) labetaloL (Normodyne) tablet 400 mg (CANCELED) 400 mg, Oral, 3 TIMES DAILY, First dose (after last modification) on Fri05/02/21 at 0515, Until Discontinued, Routine 0506 (Given - Provider: Debo Maynard RN)0847 (Given - Provider: Susana Murillo, LANE)1451 (Given - Provider: Susana Murillo RN) labetaloL (Normodyne) tablet 600 mg 600 mg, Oral, 3 TIMES DAILY, First dose (after last modification) on Fri05/02/21 at 2100, Until Discontinued, Routine 2101 (Given - Provider: Debo Maynard RN) 0808 (Given - Provider: Diana Moulton RN)1617 (Given - Provider: Diana Moulton RN)2108 (Given - Provider: Debo Maynard RN) 0830 (Given - Provider: Diana Moulton, LANE)1541 (Given - Provider: Diana Moulton RN) mesalamine ER (Apriso) capsule 1.5 g 1.5 g, Oral, DAILY, First dose on Fri04/29/21 at 2100, Until Discontinued, DO NOT CRUSH OR OPEN, Routine 0802 (Given - Provider: Carla Baig) 0808 (Given - Provider: Diana Moulton RN) 0830 (Given - Provider: Diana Moulton RN) NIFEdipine CC (Adalat CC) tablet 30 mg 30 mg, Oral, 2 TIMES DAILY, First dose on Fri05/03/21 at 0545, Until Discontinued, DO NOT CRUSH OR OPEN, Routine 0521 (Given - Provider: Debo Maynard RN)2108 (Given - Provider: Debo Maynard RN) 0830 (Given - Provider: Diana Moulton RN) vitamin 27 & efnoato-fapg-FB 60 mg iron-1 mg per tablet Tab 1 tablet 1 tablet, Oral, DAILY, First dose on Fri04/25/21 at 0900, Until Discontinued, Routine 0803 (Given - Provider: Carla Baig) 0900 (Not Given - Provider: Diana Moulton RN - Reason: Patient/family refused) 0900 (Not Given - Provider: Diana Moulton RN - Reason: Patient/family refused) senna-docusate (Pericolace) 8.6-50 mg per tablet 2 tablet 2 tablet, Oral, 2 TIMES DAILY, First dose on Fri04/29/21 at 1200, Until Discontinued, Administer to achieve 1 soft bowel movement daily without straining , Routine 0900 (Not Given - Provider: Susana Murillo RN - Reason: Patient/family refused)2100 (Not Given - Provider: Debo Maynard RN - Reason: Patient/family refused) 0900 (Not Given - Provider: Diana Moulton RN - Reason: Patient/family refused)2100 (Not Given - Provider: Debo Maynard RN - Reason: Patient/family refused) 0900 (Not Given - Provider: Diana Moulton RN - Reason: Patient/family refused) sodium chloride 0.9 % (flush) (BD PosiFlush Normal Saline 0.9) flush 5 mL 5 mL, Intravenous, 2 TIMES DAILY, First dose on Fri04/25/21 at 0030, Until Discontinued, Routine 0900 (Due)2100 (Due) 0900 (Due) 0406 (Given - Provider: Debo Maynard RN)0900 (Due) Continuous Medication Order 05/02/2021 05/03/2021 05/04/2021 lactated ringers infusion 75 mL/hr, Intravenous, CONTINUOUS, Starting on 04/28/21 at 0800, Until Fri05/04/21 at 2050 2050 (Due: Stopped) PRN Medication Order 05/02/2021 05/03/2021 05/04/2021 calcium carbonate (Tums) chewable tablet 1,000 mg 1,000 mg (2 tablet), Oral, EVERY 4 HOURS PRN, Starting on Fri04/24/21 at 2334, Until Fri05/04/21 at 2049, Heartburn, If both calcium carbonate (TUMS) and alum-mag hydroxide-simeth (MAALOX) ordered, administer calcium carbonate (TUMS) first, if ineffective administer alum-mag hydroxide-simeth (MAALOX)., Routine diphenhydrAMINE (Benadryl) capsule 25 mg 25 mg, Oral, NIGHTLY PRN, Starting on Fri04/24/21 at 2334, Until Fri05/04/21 at 0, Itching, to promote drowsiness, Routine ibuprofen (Advil) tablet 600 mg 600 mg, Oral, EVERY 6 HOURS PRN, Starting on Fri04/30/21 at 1247, Until Fri05/04/21 at 2049, Pain, Administer orally with milk or food to minimize GI irritation. Maximum dose of 3,200 mg from all sources in 24 hours, Routine 0425 (Given - Provider: Debo Maynard RN)1451 (Given - Provider: Susana Murillo RN)2101 (Given - Provider: Debo Maynard, LANE) 0521 (Given - Provider: eDbo Maynard, LANE)1259 (Given - Provider: Diana Moulton, LANE)2108 (Given - Provider: Debo Maynard RN) 1144 (Given - Provider: Diana Moulton RN) lidocaine (pf) (Xylocaine) (10 mg/mL) 1% injection 300 mg 300 mg, Subcutaneous, ONCE PRN, 1 dose, Starting on Fri04/24/21 at 2328, Until Fri05/04/21 at 2050, Repair of laceration following delivery., Routine lidocaine (Xylocaine) 1% (10 mg/mL) injection 3 mg 3 mg (0.3 mL), Subcutaneous, ONCE PRN, 1 dose, Starting on Fri04/24/21 at 2328, Until Fri05/04/21 at 0, for discomfort with PIV insertion, Routine lidocaine (Xylocaine) 2 % jelly 1 Bottle 1 Bottle, Topical (Top), ONCE PRN, Pain, Repair of laceration following delivery and/or prior to urinary catheter placement., Starting on Fri04/24/21 at 2328, 1 dose, Until Fri05/04/21 at 0 ondansetron (pf) (Zofran) (2 mg/mL) injection 4 mg 4 mg, Intravenous, EVERY 8 HOURS PRN, Starting on Fri04/24/21 at 2334, Until Fri05/04/21 at 2050, Nausea, Vomiting, May repeat in 30 minutes if inefffective oxyCODONE (Roxicodone) tablet 10 mg(Linked Group 1) 10 mg, Oral, EVERY 4 HOURS PRN, Starting on Fri04/29/21 at 1100, Until Fri05/04/21 at 2050, Pain, for pain scale 9-10, Routine oxyCODONE (Roxicodone) tablet 5 mg(Linked Group 1) 5 mg, Oral, EVERY 4 HOURS PRN, Starting on Fri04/29/21 at 1100, Until Fri05/04/21 at 2050, Pain, for pain scale 6-8, Routine polyethylene glycoL (Miralax) packet 17 g 17 g, Oral, DAILY PRN, Starting on Fri04/29/21 at 1101, Until Fri05/04/21 at 2050, Constipation, Routine simethicone (Mylicon) chewable tablet 80 mg 80 mg, Oral, 4 TIMES DAILY PRN, Starting on Fri04/29/21 at 1101, Until Fri05/04/21 at 2050, Cramping, gas pain, Routine sodium chloride 0.9 % (flush) (BD PosiFlush Normal Saline 0.9) flush 5-20 mL 5-20 mL, Intravenous, EVERY 1 MIN PRN, Starting on Fri04/24/21 at 2328, Until Fri05/04/21 at 2050, flush, Flush pertains to all indwelling lines. Flush per protocol found in the job aid using the link provided on this medication record., Routine 0030 (Given - Provider: Debo Maynard RN)032 (Given - Provider: Debo Maynard RN)05 (Given - Provider: Debo Maynard RN) Linked Groups Order Group 1: oxyCODONE (Roxicodone) tablet 5 mgJump to med 5 mg, Oral, EVERY 4 HOURS PRN, Starting on Fri04/29/21 at 1100, Until Fri05/04/21 at 2049, Pain, for pain scale 6-8, Routine Or oxyCODONE (Roxicodone) tablet 10 mgJump to med 10 mg, Oral, EVERY 4 HOURS PRN, Starting on 04/29/21 at 1100, Until Fri05/04/21 at 2049, Pain, for pain scale 9-10, Routine documented in this encounter Care Teams 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
--- OUTSIDE RECORDS SUMMARY | 2024-01-26 11:48 | XMS_ITS | Encounter Summary ---
Author Organization [facility] Address [address] [place] [address] Care Team Providers Care Digital Camera Technician Name Role Phone Unavailable Primary Care Provider Unavailabl e Encounter Details Date Type Department Care Team (Late st Contact Info) Description 01/25/2009 Orders Only [facility] Laboratory Services - [facility] ([facility]) [address] [place] [phone] Jaymie Chopra, PASTRY CHEF Social History Tobacco Use Types Packs/Day Years [...] Procedure Name Priority Date/Time Associated Diagnosis Comments HPV DETECTION, HIGH RISK TYPES Routine 01/25/2009 7:36 EST CYTOPATHOLOGY Routine 01/25/2009 0:00 EST documented in this encounter Results * HUMAN PAPILLOMA VIRUS DNA TEST (01/25/2009 7:36 EST) Specimen Description Cervix, ThinPrep vial [facility] Result Negative for HPV types 16, 18, 31, 33, 35, 39, 45, 51, 52, 56, 58, 59, and 68. [facility] Report Status Final 02/02/2009 [facility] 01/25/2009 7:36 EST 02/01/2009 7:36 EST us Jaymie Chopra NP MICROBIOLOGY - GENERAL ORDERA BLES Final Result [facility] [address] [place] [address] * CYTOPATHOLOGY (01/25/2009 0:00 EST) Pathology Report: CYTOPATHOLOGY REPORT ? Reports generated via electronic interface contain original data; ? however they are lacking the format of the original report. ? Caution should be taken when reading/interpreti ng unformatted reports. ? Name: ? EDWAR DOMINGUEZ ? Accession #: ? [id number] ? : ? 1975 (Age: 34) ??F ?Collect Date: ? 01/25/2009 ? Location: ? [facility] ? Receive Date: ? 01/26/2009 ? Provider: ?JAYMIE M AYAN PASTRY CHEF ? Copy to: ? Specimen/Source: ?Pap Test, Cervix/Endocervix, ThinPrep Imaging System ? with manual evaluation ? Last Menstrual Period: ? 11/5/09 ? Other: ? HPVDX - HPV testing requested regardless of diagnosis on current ThinPrep Pap ?? test. ? SPECIMEN ADEQUACY ? Satisfactory for Evaluation ? - transformation zone component present ? - scant squamous epithelial component secondary to excessive blood ? GENERAL CATEGORIZATION ? Negative for Intraepithelial Lesion or Malignancy ? Document reviewed and electronically signed by: ? Gus Boateng, CT(ASCP) ? Report Date: ??01/31/2009 10:44 ? End of Report ? [facility] 01/25/2009 01/26/2009 us Jaymie Chopra NP PATHOLOGY ORDERABLES Final Re sult [facility] [address] [place] [address] documented in this encounter Visit Diagnoses Not on filedocumented in this encounter
--- OUTSIDE RECORDS SUMMARY | 2024-01-26 11:48 | XMS_ITS | Clinical Summary ---
Author Organization [facility] Address [address] [place] [address] Care Team Providers Care Second Cutter Name Role Phone Unknown, Provider Primary Care [...] Orientation Not on file Plan of Treatment Health Maintenance Due Date Last Done Comments Hepatitis B Vaccine (1 of 3 - 19+ 3-dose series) 01/04 COVID-19 Vaccine ( season) 2023 Hepatitis C Screen Completed 11/20/2020 Procedures Procedure Name Priority Date/Time Associated Diagnosis Comments HEPATITIS C AB W REFLEX TO HCV RNA BY PCR Routine 11/20/2020 15:33 EDT from Last 3 Months or Most Recently Relevant to Health Maintenance Results * HEPATITIS C AB W REFLEX TO HCV RNA BY PCR (11/20/2020 15:33 EDT) Hep C Antibody Negative Negative 11/21/2020 12:27 EDT [facility] Blood VENOUS BLOOD / Unknown 11/20/2020 15:33 EDT 11/20/2020 20:58 EDT us Provider Outr Resulting Lab CHEMISTRY & BLOOD GA S ORDERABLES Final Result [facility] [address] [place] [address] from Last 3 Months or Most Recently Relevant to Health Maintenance Insurance MEDICAID [place] Care Teams Second Cutter Relationship Specialty Start Date End Date Unknown, Provider, PCP - General 12/31/14
--- OUTSIDE RECORDS SUMMARY | 2024-01-26 11:48 | XMS_ITS | Encounter Summary ---
Author Organization [facility] Address [address] [place] [address] Care Team Providers Care Bus Boy Name Role Phone Unknown, Provider Primary Care Provider Tiffany ilable Encounter Details Date Type Department Care Team (Latest Contact Info) Description 06/27/2016 9:40 EDT - 06/27/2016 23:59 EDT Hospital Encounter [address] [address] Unknown, Provider, Discharge Disposition: Home or Self Care Social History Tobacco Use Types Packs/Day Years Used Date Smoking Tobacco: Never Assessed Comments Unknown Sex and Gender Information Value Date Recorded Sex Assigned at Not on file Legal Sex Female 18:13 EST Gender Identity Not on file Sexual Orientation Not on file documented as of this encounter Discharge Disposition Disposition Code Departure Means Destination Home or Self Penitentiary documented in this encounter Plan of Treatment Not on file documented as of this encounter Visit Diagnoses Not on filedocumented in this encounter Care Teams Bus Boy Relationship Specialty Start Date End Date Unknown, Provider, PCP - General 12/31/14 documented as of this encounter
--- OUTSIDE RECORDS SUMMARY | 2024-01-26 11:48 | XMS_ITS | Encounter Summary ---
Author Organization [facility] Address [address] [place] [address] Care Team Providers Care Emt Paramedic Name Role Phone Unknown, Provider Primary Care Provider Tiffany garcia Encounter Details Date Type Department Care Team (Late st Contact Info) Description 09/22/2019 Lab Requisition [facility] Pathology & Laboratory Medicine - [facility] [address] [place], [place] [id number] Outr Resulting Lab, Provider Social History Tobacco [...] Procedure Name Priority Date/Time Associated Diagnosis Comments FUNGUS CULTURE/SMEAR Routine 09/21/2019 9:30 EDT documented in this encounter Results * FUNGUS CULTURE/SMEAR (09/21/2019 9:30 EDT) Organism ID No fungi isolated 10/20/2019 9:26 EDT [facility] Fungal Smear No Fungi Seen 10/20/2019 9:26 EDT [facility] Swab ENTIRE HAIR / Unknown 09/21/2019 9:30 EDT 09/22/2019 18:58 EDT us Provider Outr Resulting Lab MICROBIOLOGY - GENER AL ORDERABLES Final Result [facility] [address] [place] [address] documented in this encounter Visit Diagnoses Not on filedocumented in this encounter Care Teams Emt Paramedic Relationship Specialty Start Date End Date Unknown, Provider, PCP - General 12/31/14 documented as of this encounter
--- OUTSIDE RECORDS SUMMARY | 2024-01-26 11:48 | XMS_ITS | Encounter Summary ---
Author Organization [facility] Address [address] [place] [address] Care Team Providers Care Cornice Maker Name Role Phone Unknown, Provider Primary Care Provider Tiffany garcia Encounter Details Date Type Department Care Team (Late st Contact Info) Description 11/20/2020 Lab Requisition [facility] Pathology & Laboratory Medicine - [facility] [address] [place], [place] [phone] Outr Resulting Lab, Provider Social History Tobacco [...] Procedure Name Priority Date/Time Associated Diagnosis Comments RUBELLA IGG ANTIBODY Routine 11/20/2020 15:33 EDT VARICELLA IGG ANTIBODY Routine 11/20/2020 15:33 EDT documented in this encounter Results * VARICELLA IGG ANTIBODY (11/20/2020 15:33 EDT) Varicella IgG Ab Positive See Note 11/21/2020 10:09 EDT [facility] Comment:Presence of detectab le Varicella Zoster virus IgG antibodies. Blood VENOUS BLOOD / Unknown 11/20/2020 15:33 EDT 11/20/2020 20:58 EDT us Provider Outr Resulting Lab IMMUNOLOGY AND SEROL OGY ORDERABLES Final Result Performing Organization Address City/[facility]/ZIP Co de Phone Number [facility] [address] [place] [address] * RUBELLA IGG ANTIBODY (11/20/2020 15:33 EDT) Rubella IgG Ab Positive See Note 11/21/2020 10:12 EDT [facility] Comment:Positive for IgG ant ibodies to Rubella virus. Blood VENOUS BLOOD / Unknown 11/20/2020 15:33 EDT 11/20/2020 20:58 EDT us Provider Outr Resulting Lab CHEMISTRY & BLOOD GA S ORDERABLES Final Result Performing Organization Address [facility] Co de Phone Number [facility] [address] [place] [address] documented in this encounter Visit Diagnoses Not on filedocumented in this encounter Care Teams Cornice Maker Relationship Specialty Start Date End Date Unknown, Provider, PCP - General 12/31/14 documented as of this encounter
--- OUTSIDE RECORDS SUMMARY | 2024-01-26 11:48 | XMS_ITS | Encounter Summary ---
Author Organization [facility] Address [facility] [place] [address] Care Team Providers Care Coverer Name Role Phone Cielo Goncalves MD Primary Care Provider [phone] Reason for Visit * Reason Comments Ultrasound * Consultation - Closed Specialty Diagnoses / Procedures Referred By Trisha colon Referred To Contact Obstetrics and Gynecology Diagnoses Chronic kidney disease, stage 3a Personal history of other diseases of the circulatory system Ulcerative colitis, unspecified, without complications Supervision of elderly multigravida, unspecified trimester Leigha Roberson, VIRGIL [address] [place] [address] [address] [address] [facility] Equipment Maintenance Tech [address] [place] [address] Referral ID Status Reason Start Date Expiration Date V isits Requested Visits Authorized [id number] Closed Consult, Test & Treat Connection Center PCP Updated and/or Approved 11/20/2020 11/20/2021 6 6 Encounter Details Date Type Department Care Team (Late st Contact Info) Description 02/06/2021 12:00 PM EST Office Visit Obstetrics [place] [address] Gus Parikh MD [facility] OBSTETRICS [place] [address] Hypertension affecting in third trimester; Multigravida of advanced maternal age in third trimester Social History Tobacco Use Types Packs/Day [...] Sign Reading Time Taken Comments Blood Pressure 126/74 02/06/2021 11:49 AM EST Pulse - - Temperature - - Respiratory Rate - - Oxygen Saturation - - Inhaled Oxygen Concentration - - Weight 94 kg (207 lb 3.2 oz) 02/06/2021 11:49 AM EST Height - - Body Mass Index 37.9 11/16/2020 10:22 AM EDT documented in this encounter Progress Notes * Gus Parikh MD - 02/06/2021 12:00 PM EST 46 yo at 22w3d with chronic HTN, Chronic kidney disease and ulcerative colitis for detailedmorphology US and MFM visit. Patient of Ivette Le MD and Leigha Roberson CNM in [place], [place] US today reassuring: Normal appearing, normally grown agustin female with normal amniotic fluid volume and a normal appearing anterior/fundal placenta. 1) AMA - low risk cfDNA (Panorama) 2) chronic HTN Meds: Labetolol 200mg BID ASA 81mg a/w 162mg BP's appear well controlled 126/74 today. Recommend follow up growth US in 3rd trimester. Currently scheduled for 05/14 with f/u MFM visit at that time. Recommend weekly NST starting at 32 weeks Delivery at about 38 weeks. 3) Chronic kidney disease Recent labs reassuring: Cr 0.72 (11/27/20), P:Cr ratio of <0.2 (11/27/2020) 4) Ulcerative colitis Currently well controlled on mesalamine. MD Chris 20 minutes was spent performing, documenting and communicating this follow up MFM visit. documented in this encounter Plan of Treatment Not on file documented as of this encounter Visit Diagnoses Diagnosis Hypertension affecting in third trimester Multigravida of advanced maternal age in third trimester documented in this encounter Care Teams Coverer Relationship Specialty Start Date End Date Cielo Goncalves MD [address] [place] [address] PCP - General 01/16/10 documented as of this encounter
--- OUTSIDE RECORDS SUMMARY | 2024-01-26 11:48 | XMS_ITS | Encounter Summary ---
Author Organization [facility] Address [address] [place] [address] Care Team Providers Care Family Centered Specialist Name Role Phone Unknown, Provider Primary Care Provider Tiffany garcia Encounter Details Date Type Department Care Team (Late st Contact Info) Description 11/20/2020 Lab Requisition [facility] Pathology & Laboratory Medicine - [facility] [address] [place], [place] [phone] Outr Resulting Lab, Provider Social History Tobacco [...] RNA BY PCR Routine 11/20/2020 15:33 EDT HEPATITIS B SURFACE ANTIGEN Routine 11/20/2020 15:33 EDT documented in this encounter Results * HEPATITIS B SURFACE ANTIGEN (11/20/2020 15:33 EDT) Hep B Surface Ag Negative Negative 11/21/2020 10:20 EDT [facility] Blood VENOUS BLOOD / Unknown 11/20/2020 15:33 EDT 11/20/2020 20:58 EDT us Provider Outr Resulting Lab CHEMISTRY & BLOOD GA S ORDERABLES Final Result Performing Organization Address City/[facility]/ZIP Co de Phone Number [facility] [address] [place] [address] * HEPATITIS C AB W REFLEX TO HCV RNA BY PCR (11/20/2020 15:33 EDT) Hep C Antibody Negative Negative 11/21/2020 12:27 EDT [facility] Blood VENOUS BLOOD / Unknown 11/20/2020 15:33 EDT 11/20/2020 20:58 EDT us Provider Outr Resulting Lab CHEMISTRY & BLOOD GA S ORDERABLES Final Result Performing Organization Address [facility] Co de Phone Number [facility] [address] [place] [address] documented in this encounter Visit Diagnoses Not on filedocumented in this encounter Care Teams Family Centered Specialist Relationship Specialty Start Date End Date Unknown, Provider, PCP - General 12/31/14 documented as of this encounter
--- OUTSIDE RECORDS SUMMARY | 2024-01-26 11:48 | XMS_ITS | Encounter Summary ---
Author Organization [facility] Address [address] [place] [address] Care Team Providers Care Electrolytic Etcher Name Role Phone Unknown, Provider Primary Care Provider Tiffany garcia Encounter Details Date Type Department Care Team (Late st Contact Info) Description 11/21/2020 Lab Requisition [facility] Pathology & Laboratory Medicine - [facility] [address] [place], [place] [phone] Outr Resulting Lab, Provider Social History Tobacco [...] Procedure Name Priority Date/Time Associated Diagnosis Comments CHLAMYDIA/N. GONORRHOEAE AMPLIFIED NUCLEIC ACID Routine 11/20/2020 15:10 EDT documented in this encounter Results * CHLAMYDIA/N. GONORRHOEAE AMPLIFIED RNA (11/20/2020 15:10 EDT) Neisseria gonorrhoeae Result Negative Negative 11/22/2020 14:54 EDT [facility] Chlamydia trachomatis Result Negative Negative 11/22/2020 14:54 EDT [facility] Swab ENTIRE ENDOCERVIX / Unknown 11/20/2020 15:10 EDT 11/21/2020 19:50 EDT us Provider Outr Resulting Lab MICROBIOLOGY - GENER AL ORDERABLES Final Result [facility] [address] [place] [address] documented in this encounter Visit Diagnoses Not on filedocumented in this encounter Care Teams Electrolytic Etcher Relationship Specialty Start Date End Date Unknown, Provider, PCP - General 12/31/14 documented as of this encounter
--- OUTSIDE RECORDS SUMMARY | 2024-01-26 11:48 | XMS_ITS | Encounter Summary ---
Author Organization [facility] Address [address] [place] [address] Care Team Providers Care Merchandising Manager Name Role Phone Unknown, Provider Primary Care Provider Tiffany garcia Encounter Details Date Type Department Care Team (Late st Contact Info) Description 06/27/2016 Results Only [facility] [phone] Anjel Teixeira MD [address] [facility] [address] [place] [phone] Social History Tobacco Use Types Packs/Day Years [...] Date/Time Associated Diagnosis Comments SURGICAL PATHOLOGY Routine 06/27/2016 18 :56 EDT documented in this encounter Results * SURGICAL PATHOLOGY (06/27/2016 18:56 EDT) Pathology Report: SURGICAL PATHOLOGY REPORT Reports generated via electronic interface contain original data; however they are lacking the format of the original report. Caution should be taken when reading/interpret ing unformatted reports. Name: ? EDWAR DOMINGUEZ ? Accession #: ? [id number] ? : ? 1975 (Age: 41) ??F ? Collect Date: ? 06/27/2016 ? Location: ? [facility] ? Receive Date: ? 06/28/2016 ? Provider: ALON TEIXEIRA MD Copy to: ? Final Pathologic Diagnosis: A. SMALL BOWEL, TERMINAL ILEUM, BIOPSY: - ??Focal active enteritis with mild architectural disarray. See comment. - ??Negative for dysplasia. ?? B. COLON, ASCENDING, BIOPSY: - ??Active chronic colitis with crypt-rupture associated granuloma. - ??Negative for dysplasia. C. COLON, TRANSVERSE, BIOPSY: - ??Active chronic colitis. ??See comment. - ??Hyperplastic/ serrated change; Negative for definite dysplasia. D. COLON, DESCENDING, BIOPSY: - ??Active chronic colitis. - ??Hyperplastic/ serrated change; Negative for definite dysplasia. E. COLON, SIGMOID, BIOPSY: - ??Active chronic colitis. - ??Hyperplastic/ serrated change; Negative for definite dysplasia. F. RECTUM, BIOPSY: - ??Active chronic proctitis. - ??Hyperplastic/ serrated change; Negative for definite dysplasia. Comment: Features are compatible with pancolitis. There is marked hyperplastic/ serrated change arising in the context of active inflammatory disease, hence a closer surveillance after medical therapy can be indicated. Document reviewed and electronically signed by: ANGELINA MANTILLA MD Report ??Date: 07/07/2016 14:00 By the signature above, the attending physician certifies that he/she has personally conducted a gross and/or microscopic examination of the described specimens and rendered or confirmed the above diagnosis. Specimen(s) Received: A. ?Terminal ileum bx B. ? Ascending colon bx C. ? Transverse colon bx D. ? Descending colon bx E. ? Sigmoid bx F. ? Rectal bx Clinical History: Pancolitis ? IBD; clinical diagnosis code: ??A04.7 Gross Description: A. ?Received in formalin labelled with proper patient identification (initials R, B) and terminal ileum biopsy are three pink-gu tissues (0.3 x 0.2 x 0.1 cm to 0.2 x 0.2 x 0.1 cm). Entirely submitted in A1. B. ?Received in formalin labelled with proper patient identification (initials R, B) and ascending colon biopsy are three pink-gu tissues (0.5 x 0.2 x 0.1 cm to 0.2 x 0.2 x 0.2 cm). Entirely submitted in B1. C. ?Received in formalin labelled with proper patient identification (initials R, B) and transverse colon biopsy are three pink-gu tissues (0.3 x 0.2 x 0.2 cm to 0.2 x 0.2 x 0.2 cm). Entirely submitted in C1. D. ?Received in formalin labelled with proper patient identification (initials R, B) and descending colon biopsy are three pink-gu tissues (0.4 x 0.2 x 0.2 cm to 0.2 x 0.2 x 0.2 cm). Entirely submitted in D1. E. ?Received in formalin labelled with proper patient identification (initials R, B) and sigmoid biopsy are three pink-gu tissues (0.4 x 0.3 x 0.2 cm to 0.2 x 0.2 x 0.1 cm). Entirely submitted in E1. F. ?Received in formalin labelled with proper patient identification (initials R, B) and rectal biopsy are two pink-gu tissues (0.3 x 0.3 x 0.2 cm and 0.2 x 0.2 x 0.1 cm). Entirely submitted in F1. Dr. Riojas 06/29/2016 9:07 AM End of Report [facility] 06/27/2016 18:5 6 EDT 06/28/2016 18:56 EDT us Anjel Teixeira MD PATHOLOGY ORDERABLES Final Resul t [facility] [address] [place] [address] documented in this encounter Visit Diagnoses Not on filedocumented in this encounter Care Teams Merchandising Manager Relationship Specialty Start Date End Date Unknown, Provider, PCP - General 12/31/14 documented as of this encounter
--- OUTSIDE RECORDS SUMMARY | 2024-01-26 11:48 | XMS_ITS | Encounter Summary ---
[place] [address] Care Team Providers Care Blueprint Blocker Name Role Phone Cielo Goncalves MD Primary Care Provider [phone] Reason for Referral * Diagnostic Test (Routine) - Closed Specialty Diagnoses / Procedures Referred By Contac t Referred To Contact Obstetrics and Gynecology Diagnoses Supervision of high risk in first trimester Multigravida of advanced maternal age in first trimester Procedures Spinal Muscular Atrophy Darline García MD [facility] [place] [address] [facility] [employer] [facility] [employer] [address] [place] [phone] Referral ID Status Reason Start Date Expiration Date Visits Re quested Visits Authorized [id number] Closed 11/16/2020 11/16/2021 1 1 * Diagnostic Test (Routine) - Closed Specialty Diagnoses / Procedures Referred By Contac t Referred To Contact Obstetrics and Gynecology Diagnoses Supervision of high risk in first trimester Multigravida of advanced maternal age in first trimester Procedures CF Carrier Darline García MD [facility] [address] [facility] [employer] [facility] [employer] [address] [place] [phone] Referral ID Status Reason Start Date Expiration Date Visits Re quested Visits Authorized [id number] Closed 11/16/2020 11/16/2021 1 1 Reason for Visit * Reason Comments Initial Visit * Consultation (Urgent) - Closed Specialty Diagnoses / Procedures Referred By Contac t Referred To Contact Obstetrics and Gynecology Diagnoses state, incidental Chronic kidney disease, stage 3a Essential (primary) hypertension Prediabetes 45 YR OLD WITH HIGH RISK Cielo Goncalves MD [facility] [address] [place] [address] [facility] [employer] [address] [place] [address] Referral ID Status Reason Start Date Expiration Date V isits Requested Visits Authorized [id number] Closed Consult, Test & [facility] PCP Updated and/or Approved 10/20/2020 04/22/2021 6 6 Encounter Details Date Type Department Care Team (Late st Contact Info) Description 11/16/2020 10:30 AM EDT Initial Obstetrics [place] [address] Darline García MD [facility] [address] OBSTET[place]ICS [place] [address] GA: 10w5d Social History Tobacco Use Types Packs/Day Years [...] Sign Reading Time Taken Comments Blood Pressure 128/76 11/16/2020 10:19 AM EDT Pulse - - Temperature - - Respiratory Rate - - Oxygen Saturation - - Inhaled Oxygen Concentration - - Weight 88 kg (194 lb) 11/16/2020 10:19 AM EDT Height 157.5 cm (5' 2) 11/16/2020 10:22 AM EDT Body Mass Index 35.48 11/16/2020 10:19 AM EDT documented in this encounter Progress Notes * Darline García MD - 11/16/2020 10:30 AM EDT NOB maternal age 45 years spontaneous conception, CHTN, CKD stage 3a, and ulcerative colitis. Unplanned but happy. Has had recent TAB. FM not felt, no LOF, no bleeding or jamison. Had dating US last week c/w LMP. PCP though renal function abnormality creatinine 1.1 due to HTN medications, 24 hour urine normal per patient. Home cuff checks weekly. Previously on 3 agents Metoprolol, Losaartan, and spironolactone now only on Labetalol 200mg BID. Starting bASA. Reviewed risk for preeclampsia. May need nephrology referral pending labs results. Needs early GCT. HgbA1c 5.0 recently but reportedly has elevated fasting glucose. Discussed CHTN in . Discussed UC effects on . Recommend growth surviellanceat 32 weeks. Discussed AMA and risk of SAB, aneuploidy and still . She desires Panorama, will order for 12 weeks. FHR check in ~ 4 weeks for viability. Detailed US at 18 weeks. Discussed testing 34-36 weeks and delivery 38 weeks. documented in this encounter Plan of Treatment Not on file documented as of this encounter Procedures Procedure Name Priority Date/Time Associated Diagnosis Comments HC GC GENE AMP Routine 11/16/2020 10:30 AM EDT Supervision of high risk in first trimester Multigravida of advanced maternal age in first trimester HC URINE CULTURE Routine 11/16/2020 10:3 0 AM EDT Supervision of high risk in first trimester Multigravida of advanced maternal age in first trimester POCT URINE Routine 11/16/2020 Supervision of high risk in first trimester Multigravida of advanced maternal age in first trimester POCT URINE DIPSTICK Routine 11/16/2020 Supervision of high risk in first trimester [...] age of 22w 3d based on LMP ??(09/02/20) Composite age based on the current ultrasound [...] who have questions, please contact the health veterinarian laboratory animal care that requested your imaging first. ?Gus Parikh, Staff Physician Electronically Signed Final Report ?? 02/06/2021 01:07 pm Narrative 02/06/2021 1:08 PM EST OBSTETRICS REPORT ?(Signed Final 02/06/2021 01:07 pm) PATIENT INFO: ID #: ? [id number] ?: ??[birth year] (46 yrs)(F) Name: ? EDWAR DOMINGUEZ ? Visit Date: 02/06/2021 11:42 am PERFORMED BY: Performed By: ? Jaylene Omalley RDMS Attending: ?Jl RIVERA, Gus Greer Referred By: ?DARLINE GARCÍA Location: ? [place] SERVICE(S) PROVIDED: [facility] - Detailed Morphology - [id number] ? [id number] INDICATIONS: 22 weeks gestation of ?Z3A.22 morphology [...] - 87 FL/AC: ? 21.2 ??% ? 20 - 24 Est. FW: ? 597 ??gm ?1 lb [...] Arch: ? Visualized SVC: ? Visualized Cardiac Neligh: ?Visualized Diaphragm: ? Visualized 3 Vessel View: [...] 02/06/2021 01:07 pm) PATIENT INFO: ID #: [id number] : [birth year] (46 yrs)(F) Name: EDWAR DOMINGUEZ Visit Date: 02/06/2021 11:42 am PERFORMED BY: Performed By: Jaylene Omalley RDMS Attending: Gus Parikh MD Referred By: DARLINE GARCÍA Location: [place] SERVICE(S) PROVIDED: [facility] - Detailed Morphology - [id number] INDICATIONS: 22 weeks gestation of Z3A.22 morphology [...] Visualized Ductal Arch: Visualized SVC: Visualized Cardiac Neligh: Visualized Diaphragm: Visualized 3 Vessel View: Visualized [...] who have questions, please contact the health veterinarian laboratory animal care that requested your imaging first. Gus Parikh, Staff Physician Electronically Signed Final Report 02/06/2021 01:07 pm Darline García MD [facility] US OB ORDERABL ES * Protein/Creatinine Ratio, urine (11/27/2020 11:11 AM EDT) Creatinine, Urine 32 mg/dL [facility] Protein, Urine <6 0 - 12 mg/dL [facility] Protein / Creatinine Ratio, Urine <0.2 ratio [facility] Urine 11/27/2020 11:1 1 AM EDT 11/27/2020 11:24 AM EDT Narrative Resulting Agency Comment Spec In Lab Darline García MD URINE ORDERABLES [facility] [place] [address] * Spinal Muscular Atrophy (11/27/2020 11:01 AM [...] Risk if 3 Copies SMN1 (1:3,500) Ashkenazi Sikhism: The carrier detection (90%); Carrier Risk (1:41); [...] Genomics and Advanced Technology (CGAT) Laboratory at [facility]. It has not been cleared or approved by the FDA. The laboratory is regulated under CLIA as qualified to perform high-complexity testing. This test is used for clinical purposes. It should not be regarded as investigational or for research. [facility] Comment: [VERIFIED DATE]12.01.20 Verified By:Jeremi PhD, Simon Claros Director, Molecular Pathology (Electronic Signature) Blood 11/27/2020 11:0 1 AM EDT 11/27/2020 12:51 PM EDT Narrative Resulting Agency Comment Spec In Lab Darline García MD MOLECULAR ORDERABL ES [facility] [place] [address] * CF Carrier (11/27/2020 11:01 AM EDT) CF Carrier CFTR Gene Analysis: [employer] Cystic Fibrosis 139-Variant Assay INDICATION FOR STUDY: [...] the 23 CF-causing variants recommended by the [place] [employer]. This [...] Carrier risk after a negative result Ashkenazi Sikhism: ??95.44%; ??23.8; ?? White: ??94.2%; ??25; ??415 : ??82.1%; ??58.2; ?? Black: ??78.7%; ??61.4; ?? : ??71.5%; ??93.7; ?? Carrier rates are based on the ACMG [...] conditional reporting of three benign variants when p.B241hti is homozygous. METHODS: Genomic DNA was extracted from the submitted peripheral blood specimen using the [employer]. The CFTR gene was tested for the presence of the following variants by next-generation sequencing using the [employer] Cystic Fibrosis 139-Variant Assay ([employer], [place], [place]); G85E (c.254G>A)*, R117H (c.350G>A)*, 621+1G>T (c.489+1G>T)*, 711+1G>T (c.579+1G>T)*, R553X (c.1657C>T)*, R9164H (c.3484C>T)*, 3659delC (c.3528delC)*, 3849+10kbC>T (c.3717+79492R>T)* , A0034A (c.3846G>A)*, G6021I (c.3909C>G)*, R347P (c.1040G>C)*, A455E (c.1364C>A)*, E094spb (c.1519_ 1521delATC)*, P193ylx (c.1521_ 1523delCTT)*, 1717-1G>A (c.1585-1G>A)*, R560T (c.1679G>C)*, 1898+1G>A (c.1766+1G>A)*, 2184delA (c.2052delA)*, 2789+5G>A (c.2657+5G>A)*, G542X (c.1624G>T)*, R334W (c.1000C>T)*, G551D (c.1652G>A)*, 3120+1G>A (c.2988+1G>A)*, M1V (c.1A>G)?, CFTR dele2,3 (c.54-5940_273+102 84pis26gr), ??Q39X (c.115C>T), ?E60X (c.178G>T)?, P67L (c.200C>T), R75X (c.223C>T)?, 394delTT (c.262_263delTT)?, 405+1 G>A (c.273+1G>A), 406-1G>A (c.274-1G>A), E92X (c.274G>T), E92K (c.274G>A), Q98X (c.292C>T), 457TAT>G (c.325_327delTATin sG), D110H (c.328G>C), R117C (c.349C>T), Y122X (c.366T>A), 574delA (c.442delA), 663delT (c.531delT), G178R (c.532G>A), 711+3A>G (c.579+3A>G), 711+5 G>A (c.579+5G>A), 712-1 G>T (c.580-1G>T), H199Y (c.595C>T), P205S (c.613C>T), L206W (c.617T>G), Q220X (c.658C>T), T338I (c.1013C>T), 3272-26A>G (c.3140-26A>G), X9463R (c.3194T>C), E3708T (c.3196C>T), T3853W (c.3197G>A), I0352K (c.3230T>C), O8677G (c.3266G>A), O9771N(C>A) (c.3276C>A), E6299X(C>G) (c.3276C>G), I6633M (c.3302T>A), C0685O (c.3310G>T), F6976L (c.3472C>T), I6512K (c.3587C>G), M0786G (c.3611G>A), C0496T (c.3612G>A), 3791delC (c.3659delC), E4434Y (c.3731G>A), 3876delA (c.3744delA), Y0947M (c.3752G>A), 3905insT (c.3773_3774insT), 4005+1G>A (c.3873+1G>A), 4016insT (c.3884_3885insT), K0323E (c.3937C>T), 4209TGTT>AA (c.4077_ 4080delTGTTinsAA), CHXXaaut75,23 (c.3964-78_ 4242+577del), 4382delA (c.4251delA), S341P (c.1021T>C), 1154insTC (c.1022_1023insTC) , R347H (c.1040G>A), R352Q (c.1055G>A), 1213delT (c.1081delT), 1248+1G>A (c.1116+1G>A), 1259insA (c.1127_1128insA), W401X (c.1202G>A), W401X (c.1203G>A), 1341+1G>A (c.1209+1G>A), 5273akl7 (c.1329_ 1330insAGAT), 1525-1G>A (c.1393-1G>A), S466X (C>A) (c.1397C>A), [...] (c.2583delT), Q890X (c.2668C>T), L927P (c.2780T>C), S945L (c.2834C>T), 77wvo85 (c.720_ 741delAGGGAGAATGAT GATGAAGTAC), 1078delT (c.948delT), G330X (c.988G>T), I336K (c.1007T>A), S549R (c.1645A>C), 3007delG (c.2875delG), S549N (c.1646G>A), G970R (c.2908G>C), S549R (c.1647T>G), 3120G>A (c.2988G>A), Q552X (c.1654C>T), 3121-1G>A (c.2989-1G>A) Reflex reporting with homozygous p.Y289nwf or p.W892dpn: I506V (c.1516A>G), I507V (c.1519A>G), F508C (c.1523T>G) Reflex [...] variants. The conditionally reported variants in the [employer] Cystic Fibrosis 139-Variant assay consist of the polyTG/polyT region (which is reported when the R117H variant is identified) and benign variants I506V, I507V, and E619D34 (reported when a homozygous J158gni or M154ava are identified) 4. The assay cannot determine [...] characteristics have been verified by the Clinical Genomics and Advanced Technology (CGAT) Laboratory at [facility]. REFERENCES: 1. ACOG/ACMG. Preconception and carrier screening for cystic fibrosis. 2001, pp.1-31. 2. Jaydon I, Angela L, Valerio S, Alysa M, Alexandra A, Cierra Hurst. The Spectrum of CFTR Variants in Nonwhite Cystic Fibrosis Patients: Implications for Molecular Diagnostic Testing. J Mol Diagn. 2016 Feb;18(1):39-50. [PMID: 32775187] 3. ACMG, Technical Standards and Guidelines for CFTR Mutation Testing, 2008 Edition (Accessed April 2018) https://www.acmg.n et/docs/CFTR_Mutat ion_Testing_2010.p [facility] Comment: [VERIFIED DATE]12.01.20 Verified By:Jeremi Hughes, Simon Claros Director, Molecular Pathology (Electronic Signature) Blood 11/27/2020 11:0 1 AM EDT 11/27/2020 12:51 PM EDT Narrative Resulting Agency Comment Spec In Lab Darline García MD MOLECULAR ORDERABL ES Performing Organization Address City/[facility] Co de Phone Number [facility] [place] [address] * Panorama Screen (11/27/2020 11:01 AM EDT) Panorama Screen See Scan Report [facility] Comment:Test performed by Aylin zuñiga, [address] [place] [address], [address] [address] Blood 11/27/2020 11:0 1 AM EDT 11/27/2020 12:16 PM EDT Narrative Resulting Agency Comment Spec In Lab Darline García MD LAB SEND OUT ORDER MITRA Performing Organization Address [facility] Co de Phone Number [facility] [place] [address] * Aspartate Aminotransferase (11/27/2020 11:01 AM EDT) Aspartate Aminotransferase 15 0 - 30 unit/L [facility] Blood 11/27/2020 11:0 1 AM EDT 11/27/2020 11:22 AM EDT Narrative Resulting Agency Comment Spec In Lab Darline García MD CHEMISTRY ORDERABL ES Performing Organization Address [facility] Co de Phone Number [facility] [place] [address] * Creatinine (11/27/2020 11:01 AM EDT) Creatinine 0.72 0.70 - 1.20 mg/dL [facility] Est Glomerular Filtration Rate 101 >=60 mL/min/1. 73 m?? [facility] [...] Resulting Agency Comment Spec In Lab Darline García MD CHEMISTRY ORDERABL ES Performing Organization Address [facility] Co de Phone Number [facility] [place] [address] * Hepatitis C Antibody (11/27/2020 11:01 AM EDT) Hepatitis C Antibody Negative Negative [facility] Blood 11/27/2020 11:0 1 AM EDT 11/27/2020 11:22 AM EDT Narrative Resulting Agency Comment Spec In Lab Darline García MD CHEMISTRY ORDERABL ES Performing Organization Address [facility] Co de Phone Number [facility] [place] [address] * Varicella zoster Antibody, IgG (11/27/2020 11:01 AM EDT) Varicella Zoster Antibody IgG Pos [facility] Blood 11/27/2020 11:0 1 AM EDT 11/27/2020 1:57 PM EDT Narrative Resulting Agency Comment Spec In Lab Darline García MD IMMUNOLOGY ORDERAB LES Performing Organization Address [facility] de Phone Number [facility] [place] [address] * GC/Chlamydia ([facility]/CGP/APD/[facility]) Urine (11/16/2020 10:30 AM EDT) GC Gene Amp Negative Negative [facility] Comment: The only FDA approved specimen types for this assay are cervical, vaginal, urethral and urine. Non-FDA approved sources are eye, throat and rectal and have been internally validated. GC Source Urine [facility] Chlamydia Gene Amp Negative Negative [facility] Comment: The only FDA approved specimen types for this assay are cervical, vaginal, urethral and urine. Non-FDA approved sources are eye, throat and rectal and have been internally validated. Chlm Source Urine [facility] Urine 11/16/2020 10:3 0 AM EDT 11/16/2020 3:13 PM EDT Narrative Resulting Agency Comment Spec In Lab Darline García MD MICROBIOLOGY - GEN ERAL ORDERABLES Performing Organization Address City/[facility]/ZIP Co de Phone Number [facility] [place] [address] * (ABNORMAL) Urine culture Clean Catch Urine (11/16/2020 10:30 AM EDT) Urine Culture 10,000-49,000 cfu/ml mixed mucosal garrett Note: Culture shows multiple bacterial species suggesting mucosal contamination. If symptoms continue to indicate urinary tract infection, submit a new specimen. (A) [facility] Clean Catch Urine 11/16/2020 10:30 AM EDT 11/16/2020 3:11 PM EDT Narrative Resulting Agency Comment Spec In Lab Darline García MD MICROBIOLOGY - GEN ERAL ORDERABLES [facility] [place] [address] * (ABNORMAL) POCT urine dipstick (11/16/2020) POC Sp [place] 1.0(A) 1.002 - 1.030 POC pH, UA 7 5.0 - 8.5 POC Leuk, UA Negative Negative - Negative POC Nitrite, UA Negative Negative - Negative POC Protein, UA Trace Negative - Negative mg/dL POC Glucose, UA Normal Normal - Normal mg/dL POC Ketone, UA Negative Negative - Negative POC Urobil, UA Normal 0.2 - 1.0 mg/dL POC Bili, UA Negative Negative - Negative POC Blood, UA Negative Negative - Negative ant/uL Darline García MD POINT OF CARE TEST ORDERABLES * POCT urine (11/16/2020) POC Urine HCG Positive Negative - Negative POC Control Internal Controls Acceptable Darline García MD POINT OF CARE TEST ORDERABLES documented in this encounter Visit Diagnoses Diagnosis Supervision of high risk in first trimester- Primary Unspecified high-risk Multigravida of advanced maternal age in first trimester Supervision of high risk in first trimester Unspecified high-risk Multigravida of advanced maternal age in first trimester documented in this encounter Care Teams Blueprint Blocker Relationship Specialty Start Date End Date Cielo Goncalves MD [address] [place] [address] [address] [place] [address] PCP - General 01/16/10 documented as of this encounter
--- OUTSIDE RECORDS SUMMARY | 2024-01-26 11:48 | XMS_ITS | Encounter Summary ---
Author Organization [facility] Address [address] [place] [address] Care Team Providers Care Pulp Plant Supervisor Name Role Phone Unavailable Primary Care Provider Unavailabl e Encounter Details Date Type Department Care Team (Late st Contact Info) Description 07/17/2012 Results Only [facility] Laboratory Services - [facility] ([facility]) [address], [place] [id number] Cielo Nichols MD [address] [address] Social History Tobacco Use Types Packs/Day Years [...] Name Priority Date/Time Associated Diagnosis Comments PAP TEST- RESULT ONLY Routine 07/17/2012 0:00 EDT documented in this encounter Results * PAP TEST- RESULT ONLY (07/17/2012 0:00 EDT) Pathology Report: CYTOPATHOLOGY REPORT Reports generated via electronic interface contain original data; however they are lacking the format of the original report. Caution should be taken when reading/interpreti ng unformatted reports. Name: ? EDWAR DOMINGUEZ ? Accession #: ? [id number] ? : ? 1975 (Age: 37) ??F ?Collect Date: ? 07/17/2012 ? Location: ? [facility] ? Receive Date: ? 07/21/2012 ? Provider: CIELO NICHOLS MD Copy to: ? Final Report SPECIMEN ADEQUACY ? Satisfactory for Evaluation - transformation zone component present GENERAL CATEGORIZATION ? Negative for Intraepithelial Lesion or Malignancy ?? Last Menstrual Period: 07/08/12 Specimen/Source: ??Pap Test, Cervix/Endocervix, ThinPrep Imaging System with manual evaluation Document reviewed and electronically signed by: ? JENNY Minaya(ASCP) ? Report ??Date: 07/24/2012 11:14 HPV with Pap Test ? Date Ordered: ? 07/24/2012 ? Status: ?? Signed Out ?Date Complete: ? 07/28/2012 ? By: ??System Interface ? Date Reported: ? 07/28/2012 ? Interpretation RESULT: Negative for HPV. No E6 or E7 mRNA is detected from HPV types 16,18,31,33,35, 39,45,51,52,56,58, 59,66, and 68 by geological drafter mediated amplification. Comments Document reviewed and electronically signed by: ? System Interface ? Report date: 07/28/2012 By the signature above, the attending physician certifies that he/she has personally conducted a gross and/or microscopic examination of the described specimens and rendered or confirmed the above diagnosis. End of Report [facility] 07/17/2012 07/21/2012 us Cielo Nichols MD PATHOLOGY ORDERABLES Final Resul t [address] [address] documented in this encounter Visit Diagnoses Not on filedocumented in this encounter
--- OUTSIDE RECORDS SUMMARY | 2024-01-26 11:48 | XMS_ITS | Encounter Summary ---
[place] [address] Care Team Providers Care Hospital Coordinator Name Role Phone Cielo Goncalves MD Primary Care Provider Reason for Visit * Auth/Cert Specialty Diagnoses / Procedures Referred By Contac t Referred To Contact Diagnoses Preeclampsia, severe Preeclampsia, severe Procedures C SECTION DELIVERY Referral ID Status Reason Start Date Expiration Date Visits Re quested Visits Authorized [id number] 1 1 Encounter Details Date Type Department Care Team (Late st Contact Info) Description 04/29/2021 9:15 AM EST [place] [address] Arianna Ramirez MD [facility] [place] [address] Becky Fritz MD [facility] [place] [address] Anesthesia Record Procedure Summary Procedure Name Responsible Anesthesiologist Anesthesia Start Time Anesthesia Stop Time @ DELIVERY (WRVU 16.13) (Abdomen) Arianna Ramirez MD 04/29/21 0915 04/29/21 1109 Events Date Time Event Comment 04/29/2021 0915 Start 0915 An Start Data 0916 AN Verify 0924 Labor Neuraxial 0926 Anesthesia Ready 0942 Skin Incision 0948 Uterine Incision 0948 Baby Delivered 1109 an stop data 1109 Recovery or ICU Handoff Victorina ent care was transferred to the destination unit staff after review of the patient's medical history, current anesthetic/surgical status and plan, according to the Provider Handoff Checklist. 1109 Stop 05/02/2021 0830 Meds Name Total fentaNYL 15 mcg ePHEDrine 60 mg PHENYLephrine 240 mcg PHENYLephrine INF 5,190 mcg Glycopyrrolate 0.4 mg Oxytocin 3 Units oxytocin (Pitocin) (0.06 units/mL) in so dium chloride 0.9% 500 mL infusion 666.67 mL BUpivacaine 0.75% spinal 12 mg Morphine(Neuraxial) 150 mcg Azithromycin 500 mg ketorolac (Toradol) (30 mg/mL) injection 30 mg Lactated Ringers 2,000 mL * Agents Name O2 Air N2O * Blood No blood administrations on file. Lines, Drains, and Airways Type Details Placement Removal Incision 04/29/21; 0942; midline; abdomen; low transverse 04/29/21 0942 by Miguelina Estrella, LANE (RETIRED) Peripheral IV Line - Single Lumen 04/25/21; 0350; median vein (underside of arm), right; [id number] catheter system; Ultrasound Guidance; Yes - US guidance used but Image NOT saved; 22 gauge, 1 in length; LANE Pleitez VAS; distraction, intradermal injection, tolerated well; 0; 04/30/21; 1653 04/25/21 0350 by Hillary Pleitez RN 04/30/21 1653 by Arlene Ignacio RN (RETIRED) Peripheral IV Line - Single Lumen 04/28/21; 1239; basilic vein (medial side of arm), right; [id number] catheter system; Ultrasound Guidance; 20 gauge, 3/4 in length, 1 in length; Guzman SENA RN; distraction, intradermal injection, tolerated well, appears comfortable; 0; LDA not present upon assessment; 04/29/21; 1354 04/28/21 1239 by iLssett Hinds RN 04/29/21 1354 by Lissett Hinds RN Urethral Catheter 04/29/21; 0930; Abdominal surgery; Acute urinary retention or obstruction; indwelling single lumen catheter; 100% silicone; 14; inserted at this facility; 1; 10; 10; other (see comments) (spinal); 04/30/21; 1209 04/29/21 0930 by Charleen Heredia RN 04/30/21 1209 by Arlene Ignacio RN Epidural 04/29/21; 1009 (pipo bee via procedure documentation); No present; 04/29/21; 199904/29/21 1009 by Alberto Campos MD 04/29/211999 by Candace Spivey RN documented in this encounter Social History Tobacco Use Types Packs/Day Years [...] on file documented as of this encounter OR Notes * Anesthesia Postprocedure Evaluation - Alberto Campos MD - 04/29/2021 11:26 AM EST Department of Anesthesiology Post-procedure Note Patient: Nilda Parish Procedure Summary Date: 04/29/21 Room / Location: Anesthesia Start: 914 Anesthesia Stop: 1108 Procedure: Labor Analgesia (proc) Diagnosis: Scheduled Providers: Responsible Provider: Arianna Ramirez MD Anesthesia Type: epidural ASA Status: 3 All Anesthesia Providers: Anesthesiologist: Arianna Ramirez MD Stocking And Box Shop Supervisor: Alberto Campos MD Vitals Value Taken Time BP Temp Pulse Resp SpO2 Pain Level Patient Location: Floor Level of Consciousness: Awake and Alert Pain Management: Satisfactory Analgesia PONV: None Cardiovascular Status: At Baseline and Hemodynamically Stable Respiratory Status: At Baseline and Room Air Postoperative Fluid Status: Intravascular EUvolemia Possible Anesthetic Complications: NONE apparent at time of evaluation Final Primary Anesthesia Type: Spinal (The anesthetic type performed was the same as planned.) Comments: Alberto Campos MD * Anesthesia Procedure Notes - Alberto Campos MD - 04/29/2021 10:03 AM EST Associated Order(s): Neuraxial for Labor Only Procedure: Labor Analgesia Neuraxial Block Labor Analgesia Type: Spinal The patient was greeted. The sedation plan, its benefits, risks and alternatives were discussed with the patient. The patient has consented to the procedure. The medical history and chart were reviewed. The timeout was performed. Start time: 04/29/2021 9:18 AM End time: 04/29/2021 9:21 AM Patient Location: [facility] Patient Prep Position: Sitting Prep: Chlorhexidine, Patient Draped, gown, Hand Hygiene, Hat, Mask and Sterile Gloves Injection technique: single-shot Procedure Technique Level of needle insertion: L3-4 Needle approach: midline Needle Type: [facility] Gauge: 25 Needle length: 3.5 in Number of attempts: 1 Events/Notes Events: None Additional Notes: Patient positioned appropriately, skin sterilized and patient draped. Skin anesthetized with 1% lidocaine and spinal introducer and needle advanced into intervertebral space. Spinalneedle entered the intrathecal space with no paresthesia or other events. Clear CSF returned. Spinal syringe attached with swirling upon aspiration confirming intrathecal location. Patient became bradycardic and hypotensive following spinal as expected given her history of significant vasovagal response. This was remedied with ephedrine, glycopyrrolate and a phenylephrine infusion. Patient reported some lightheadedness during the episode, otherwise no other complications reported. Resident/MANAGER STUDENT SERVICES: Alberto Campos MD Second Resident/MANAGER STUDENT SERVICES: SRNA: Fellow: Attending Physician: Arianna Ramirez MD ~~~~~~~~~~~~~~~~~~~~~~~~~~~~~~~~~~~~~~~~~~~~~~~~~~~~~~~~~~~~ * Anesthesia Preprocedure Evaluation - Vicente Rivera MD - 04/25/2021 5:21 AM EST Pre-Anesthesia Evaluation for: Nilda Parish a 46 y.o. female. * No procedures listed * Patient Active Problem List Diagnosis Date Noted ??? BMI 36.0-36.9,adult 04/25/2021 ??? Depression 04/25/2021 ??? History of cardiac arrhythmia 04/25/2021 ??? Preeclampsia, severe 04/24/2021 ??? AMA (advanced maternal age) multigravida 35+ 11/16/2020 ??? Hypertension 11/16/2020 ??? Ulcerative colitis 11/16/2020 ??? History of premature rupture of membranes (PROM) in previous , currently , first trimester 11/16/2020 ??? CKD (chronic kidney disease) stage 3, GFR 30-59 ml/min 11/16/2020 ??? Acne vulgaris 05/16/2011 Past Medical History: Diagnosis Date ??? C. difficile colitis ??? CKD (chronic kidney disease) 2020 creatinine 1.18 ??? Hypertension 2006 labetalol now, metprolol, losartan, spironolactone preconception ??? Insulin resistance ??? Ulcerative colitis aspriso, no flares since 2018[facility] Past Surgical History: Procedure Laterality Date ??? CHOLECYSTECTOMY ??? COLONOSCOPY ??? INGUINAL HERNIA REPAIR Left ??? KNEE SURGERY ??? WISDOM TOOTH EXTRACTION Social History Tobacco Use ??? Smoking status: Never Smoker ??? Smokeless tobacco: Never Used Substance Use Topics ??? Alcohol use: Not Currently Social History Substance and Sexual Activity Drug Use Never Allergies Allergen Reactions ??? Sulfamethoxazole Other reaction(s): joints swell ??? Trimethoprim Other reaction(s): joints swell ??? Diatrizoate Meglumine Rash Other reaction(s): Skin Rash ??? Hyoscyamine Other reaction(s): Skin Rash Medications: MAR and/or home medications have been reviewed. Physical Exam: Preprocedure Vitals Current as of 04/25/21 0521 BP: 139/78 Pulse: 85 Resp: SpO2: 99 Temp: Height: 157.5 cm (5' 2) (04/24/21) Weight: 96.6 kg (213 lb) (04/24/21) BMI: 38.95 IBW: 50.1 kg (110 lb 7.8 oz) Last edited 04/25/21 0445 by SAMANTHA Currently displaying vitals information from multiple entries within 90 minutes of most recent vitals. Airway Assessment: Mallampati: III TM distance: >3 FB Neck ROM: full Cardiovascular Assessment: Rate: normal (+) murmur Pulmonary Assessment: breath sounds clear to auscultation Dental Assessment: Misc Assessment: Other exam findings: G4 murmur worse on exhalation, axillary radiation Last Filed Perioperative Cognitive Screening None Anesthesia Plan: ASA 3 epidural, Pt interviewed and examined. Pt is a 46 y.o. female who is and 33w4d here for 46 y.o. at 33w4d presenting for Pre-E w/ Severe Features on background of ?Arrthymia (No records), HTN (Pre- Losartan, Metoprolol, Spironolactone), Arrhythmia, CKD3 (B/L Cr 1.2), Obesity (BMI 39), Ulcerative Colitis (Mesalamine), ID-GDM. Medical, surgical, and anesthetic history rev iewed. On Labetalol since . - TTE 10/2019 EF 60%, Moderate MR (Structurall WNL), otherwisewnl. Noted to have murmur since 13yo, no SOB/CP/Palpitations/Orthopnea/Peripheral Oedema. Had arrhythmia NOS during laminectomy, with EKG/Holter monitoring and TTE done 10/2019, workup unremarkable apart from murmur. Of note the patient has had 2 episodes c/w vasovagal syncope this admission, FHR tracing remained stable w/ vasovagal during prior regnancy. Transverse lie this . Previous deliveries without neuraxial c/b PPH and pre-eclamspia. No stroke/seizure, cardiopulmonary, bleeding/clotting, or renal/hepatic history. No contraindications to neuraxial anesthesia. Consent obtained. Risk, benefits discussed; questions answered. Discussed potential need for labor analgesia and/or anesthesia to possibly include epidural, spinal, CSE, and anesthesia for (which includes all of the above with the addition of general anesthesia.) Pt would like an EPIDURAL. Would avoid test dose Allergies/ADR: -- Sulfamethoxazole -- Other reaction(s): joints swell -- Trimethoprim -- Other reaction(s): joints swell -- Diatrizoate Meglumine -- Rash -- Other reaction(s): Skin Rash -- Hyoscyamine -- Other reaction(s): Skin Rash\ Personal history of problems with anesthesia: none, prior surgeries not complicated Family history of anesthesia problems: none Bleeding Disorder: none Asthma: none HTN: YES Prior back surgeries/pathology: Laminectomy, no fusion LE numbness/weakness: none Lab Results Component Value Date/Time HGB 10.6 (L) 04/25/2021 12:15 PM PLATELET 315 04/25/2021 12:15 PM Type and Screen: Lab Results Component Value Date ABORH O Pos 04/25/2021 Vicente Rivera MD Informed Consent: Anesthesia Screening documented in this encounter Plan of Treatment Not on file documented as of this encounter Procedures Procedure Name Priority Date/Time Associated Diagnosis Comments ANES PLACEHOLDER FOR LABOR EPIDURAL Routine 04/29/2021 10:03 AM EST documented in this encounter Results * [id number] (04/29/2021 10:03 AM EST) Narrative Arianna Ramirez MD - 04/29/2021 10:03 AM EST Alberto Campos MD ? 04/29/2021 10:09 AM Procedure: ?? Labor Analgesia Neuraxial Block Labor Analgesia Type: Spinal The patient was greeted. The sedation plan, its benefits, risks and alternatives were discussed with the patient. ??The patient has consented to the procedure. ??The medical history and chart were reviewed. ??The timeout was performed. Start time: 04/29/2021 9:18 AM End time: 04/29/2021 9:21 AM Patient Location: [facility] Patient Prep Position: Sitting Prep: Chlorhexidine, Patient Draped, gown, Hand Hygiene, Hat, Mask and Sterile Gloves Injection technique: single-shot Procedure Technique Level of needle insertion: L3-4 Needle approach: midline Needle Type: [facility] Gauge: 25 Needle length: 3.5 in Number of attempts: 1 Events/Notes Events: ??None Additional Notes: ??Patient positioned appropriately, skin sterilized and patient draped. Skin anesthetized with 1% lidocaine and spinal introducer and needle advanced into intervertebral space. Spinal needle entered the intrathecal space with no paresthesia or other events. Clear CSF returned. Spinal syringe attached with swirling upon aspiration confirming intrathecal location. Patient became bradycardic and hypotensive following spinal as expected given her history of significant vasovagal response. This was remedied with ephedrine, glycopyrrolate and a phenylephrine infusion. Patient reported some lightheadedness during the episode, otherwise no other complications reported. Resident/MANAGER STUDENT SERVICES: ? Alberto Campos MD Second Resident/MANAGER STUDENT SERVICES: SRNA: ? Fellow: ? Attending Physician: ? Arianna Ramirez MD ~~~~~~~~~~~~~~~~~~~~~~~~~~~~~~~~~~~~~~~~~~~~~~~~~~~~~~~~~~~~ Arianna Ramirez MD WINDROWER OPERATOR [facility] documented in this encounter Visit Diagnoses Not on filedocumented in this encounter Administered Medications Inactive Administered Medications - up to 3 most recent administrations Medication Order MAR Action Action Date Dose Rate Site azithromycin (Zithromax) injection Intravenous, PRN, Starting on Fri04/29/21 at 1016, Until Fri04/29/21 at 1109, Anesthesia Intra-op, Routine Given 04/29/2021 9:26 AM EST 500 mg BUpivacaine (pf) (Sensorcaine) (7.5 mg/mL) 0.75% in dextrose 8.25% INTRATHECAL injection Intrathecal, PRN, Starting on Fri04/29/21 at 0924, Until Fri04/29/21 at 1109, Anesthesia Intra-op, Routine Given 04/29/2021 9:24 AM EST 12 mg ePHEDrine sulfate (5 mg/mL) multi-dose injection Intravenous, PRN, Starting on Fri04/29/21 at 0951, Until Fri04/29/21 at 1109, Anesthesia Intra-op, Routine Given 04/29/2021 10:32 AM EST 5 mg Given 04/29/2021 10:28 AM EST 10 mg Given 04/29/2021 10:21 AM EST 10 mg fentaNYL (pf) (50 mcg/mL) multi-dose injection Intrathecal, PRN, Starting on Fri04/29/21 at 0924, Until Fri04/29/21 at 1109, Anesthesia Intra-op, Routine Given 04/29/2021 9:24 AM EST 15 mcg glycopyrrolate (Robinul) (0.2 mg/mL) multi-dose injection Intravenous, PRN, Starting on Fri04/29/21 at 0927, Until Fri04/29/21 at 1109, Anesthesia Intra-op, Routine Given 04/29/2021 9:31 AM EST 0.2 mg Given 04/29/2021 9:27 AM EST 0.2 mg ketorolac (Toradol) (30 mg/mL) injection Intravenous, PRN, Starting on Fri04/29/21 at 1100, Until Fri04/29/21 at 1109, Anesthesia Intra-op, Routine Given 04/29/2021 11:00 AM EST 30 mg lactated ringers infusion Intravenous, CONTINUOUS PRN, Starting on Fri04/29/21 at 0916, Until Fri04/29/21 at 1109, Anesthesia Intra-op New Bag 04/29/2021 9:16 AM EST morphine (PF) (0.5 mg/mL) injection Intrathecal, PRN, Starting on Fri04/29/21 at 0924, Until Fri04/29/21 at 1109, Anesthesia Intra-op, Routine Given 04/29/2021 9:24 AM EST 150 mcg oxytocin (Pitocin) (0.06 units/mL) in sodium chloride 0.9% 500 mL infusion 30 Units (500 mL), Intravenous, Administer over 1 Hours, ONCE PRN, 1 dose, Starting on Fri04/24/21 at 2328, Until Fri04/29/21 at 0949, At the discretion of the provider following delivery., ., Routine New Bag 04/29/2021 9:49 AM EST 500 mL/hr 500 mL/hr oxytocin (Pitocin) (10 unit/mL) injection Intravenous, PRN, Starting on Fri04/29/21 at 0949, Until Fri04/29/21 at 1109, Anesthesia Intra-op, Routine Given 04/29/2021 9:49 AM EST 3 Units PHENYLephrine (Wally-Synephrine) (80 mcg/mL) in sodium chloride 0.9% 250 mL infusion Intravenous, CONTINUOUS PRN, Starting on 04/29/21 at 0923, Until 04/29/21 at 1109, Anesthesia Intra-op, Routine Rate/Dose Change 04/29/2021 10:49 AM EST 20 mcg/min 15 mL/hr Rate/Dose Change 04/29/2021 10:43 AM EST 30 mcg/min 22.5 m L/hr Rate/Dose Change 04/29/2021 10:28 AM EST 50 mcg/min 37.5 m L/hr PHENYLephrine in NS (PF) (WALLY-SYNEPHRINE) 0.8 mg/10 mL (80 mcg/mL) multi-dose injection Syrg Intravenous, PRN, Starting on 04/29/21 at 0927, Until 04/29/21 at 1109, Anesthesia Intra-op, Routine Given 04/29/2021 10:31 AM EST 80 mcg Given 04/29/2021 10:27 AM EST 80 mcg Given 04/29/2021 9:27 AM EST 80 mcg documented in this encounter Care Teams Hospital Coordinator Relationship Specialty Start Date End Date Cielo Goncalves MD [facility] [address] [place] [address] PCP - General 01/16/10 documented as of this encounter
--- OUTSIDE RECORDS SUMMARY | 2024-01-26 11:48 | XMS_ITS | Encounter Summary ---
Author Organization [facility] Address [address] [place] [address] Care Team Providers Care Fretted Instrument Repairer Name Role Phone Unknown, Provider Primary Care Provider Tiffany garcia Encounter Details Date Type Department Care Team (Late st Contact Info) Description 01/23/[address] [facility] [phone] Cielo Nichols MD [address] [id number] Social History Tobacco Use Types Packs/Day Years [...] Diagnosis Comments PAP TEST- RESULT ONLY Routine 01/23/2017 0:00 EST documented in this encounter Results * PAP TEST- RESULT ONLY (01/23/2017 0:00 EST) Pathology Report: CYTOPATHOLOGY REPORT Reports generated via electronic interface contain original data; however they are lacking the format of the original report. Caution should be taken when reading/interpreti ng unformatted reports. Name: ? EDWAR DOMINGUEZ ? Accession #: ? [id number] ? : ? 1975 (Age: 42) ??F ?Collect Date: ? 01/23/2017 ? Location: ? [facility] ? Receive Date: ? 01/24/2017 ? Provider: CIELO NICHOLS MD Copy to: ? Final Report SPECIMEN ADEQUACY ? Satisfactory for Evaluation - transformation zone component present GENERAL CATEGORIZATION ? Negative for Intraepithelial Lesion or Malignancy INTERPRETATION ? Reactive cellular changes associated with inflammation present (includes repair). Last Menstrual Period: 2016 Specimen/Source: ??Pap Test, Cervix, ThinPrep Imaging System with manual evaluation Document reviewed and electronically signed by: ? NONA FORBES MD ? Report ??Date: 02/05/2017 11:03 HPV with Pap Test ? Date Ordered: ? 02/05/2017 ? Status: ?? Signed Out ?Date Complete: ? 02/06/2017 ? By: ??System Interface ? Date Reported: ? 02/06/2017 ? Interpretation RESULT: Negative for HPV. No E6 or E7 mRNA is detected from HPV types 16,18,31,33,35, 39,45,51,52,56,58, 59,66, and 68 by char filter tank tender mediated amplification. Comments Document reviewed and electronically signed by: ? System Interface ? Report date: 02/06/2017 By the signature above, the attending physician certifies that he/she has personally conducted a gross and/or microscopic examination of the described specimens and rendered or confirmed the above diagnosis. End of Report [facility] 01/23/2017 01/24/2017 us Cielo Nichols MD PATHOLOGY ORDERABLES Final Resul t [facility] [address] [place] [address] documented in this encounter Visit Diagnoses Not on filedocumented in this encounter Care Teams Fretted Instrument Repairer Relationship Specialty Start Date End Date Unknown, Provider, PCP - General 12/31/14 documented as of this encounter
--- OUTSIDE RECORDS SUMMARY | 2024-01-26 11:48 | XMS_ITS | Encounter Summary ---
Author Organization [facility] Address [address] [place] [address] Care Team Providers Care Shoveler Name Role Phone Unknown, Provider Primary Care Provider Tiffany ilable Encounter Details Date Type Department Care Team (Latest Contact Info) Description 11/28/2016 8:59 EDT - 11/28/2016 23:59 EDT Hospital Encounter [address] [address] Unknown, Provider, Discharge Disposition: Home or Self [...] Code Departure Means Destination Home or Self Long Term documented in this encounter Plan of Treatment Not on file documented as of this encounter Visit Diagnoses Not on filedocumented in this encounter Care Teams Shoveler Relationship Specialty Start Date End Date Unknown, Provider, PCP - General 12/31/14 documented as of this encounter
--- OUTSIDE RECORDS SUMMARY | 2024-01-26 11:49 | XMS_ITS | Encounter Summary ---
Author Organization [facility] Address [address] [place] [address] Care Team Providers Care Tin Recovery Worker Name Role Phone Unavailable Primary Care Provider Unavailabl e Encounter Details Date Type Department Care Team (Late st Contact Info) Description 01/28/2006 Results Only [facility] [place] [facility] [address] [place] [address] Joshua Marcelo MD [address] [place] [address] Social History Tobacco Use Types Packs/Day Years [...] Date/Time Associated Diagnosis Comments SURGICAL PATHOLOGY Routine 01/28/2006 0:00 EST documented in this encounter Results * SURGICAL PATHOLOGY (01/28/2006 0:00 EST) Pathology Report: SURGICAL PATHOLOGY REPORT Reports generated via electronic interface contain original data; however they are lacking the format of the original report. Caution should be taken when reading/interpreti ng unformatted reports. Name: ? EDWAR DOMINGUEZ ? Accession #: ? [id number] ? : ? 1975 (Age: 31) ??F ? Collect Date: ? 01/28/2006 ? Location: ? [facility] ? Receive Date: ? 01/28/2006 ? Provider: COOPER MARCELO MD Copy to: THADDEUS NICHOLS MD ? Final Pathologic Diagnosis: ? Note: ??This specimen was originally received on 01/28/06 and accessioned as [id number] under a [facility] record number belonging to a different patient. ??On 02/06/06, the discrepancy was discovered during the professional billing process. ??The case is re-accessioned as above using the correct MRN. The original report is addended. ??Charges are moved to the correct patient; the block and slide are relabelled. ??The diagnostic information is unchanged. /klb Gallbladder, cholecystectomy: 1. ?Chronic cholecystitis. 2. ? Cholesterolosis. 3. ? Cholelithiasis. Document reviewed and electronically signed by: SONJA THAKUR MD Report ??Date: 02/07/2006 17:22 By the signature above, the attending physician certifies that he/she has personally conducted a gross and/or microscopic examination of the described specimens and rendered or confirmed the above diagnosis. Specimen(s) Received: ? Gallbladder Clinical History: ? Cholelithiasis Gross Description: ? Received in formalin labelled Jem and gallbladder is a 6.5 x 2.0 x 2.3 cm intact gallbladder that has a smooth, glistening gu to green external surface and an attached 0.2 cm in length by 0.2 cm in diameter portion of cystic duct. ??The cystic duct resection margin is black inked. ??There is no cystic duct lymph node. ??The gallbladder wall measures 0.2 cm in thickness and the specimen contains a moderate amount (5 cc) of thick green bile and approximately five mixed type stones that measure up to 0.2 cm in greatest dimension. ??The mucosa is green and velvety with several confluent yellow flecks that form a fine reticular pattern. ??Two direct sales representative cross sections of gallbladder wall and the cystic duct resection margin (en fact) are submitted in one cassette. ??(Dr. Rabia Williamson-)/tmg End of Report [facility] 01/28/2006 01/28/2006 13: 17 EST us Joshua Marcelo MD PATHOLOGY ORDERABLES Final Res ult [facility] [address] [place] [address] documented in this encounter Visit Diagnoses Not on filedocumented in this encounter
--- OUTSIDE RECORDS SUMMARY | 2024-01-26 11:49 | XMS_ITS | Encounter Summary ---
Author Organization [facility] Address [address] [place] [address] Care Team Providers Care Supervisor Painting Department Name Role Phone Unavailable Primary Care Provider Unavailabl e Encounter Details Date Type Department Care Team (Late st Contact Info) Description 01/09/2000 Results Only [facility] [place] conversion [address] [place] [address] Arlene Abbott MD [address] [place] [phone] Social History Tobacco Use Types Packs/Day Years [...] Procedure Name Priority Date/Time Associated Diagnosis Comments CYTOPATHOLOGY Routine 01/09/2000 0:00 EST documented in this encounter Results * CYTOPATHOLOGY (01/09/2000 0:00 EST) Pathology Report: CYTOPATHOLOGY REPORT Reports generated via electronic interface contain original data; however they are lacking the format of the original report. Caution should be taken when reading/interpreti ng unformatted reports. Name: ? EDWAR DOMINGUEZ ? Accession #: ? [id number] : ? 1975 (Age: 25) ??F ?Collect Date: ? 01/09/2000 Location: ? [facility] ? Receive Date: ? 01/11/2000 Provider: ?ARLENE ABBOTT STUDENT SUCCESS COUNSELOR Copy to: ? Specimen/Source: ?Conventional Pap Test, Cervix/Endocervix Last Menstrual Period: ? 01/02/00 ? SPECIMEN ADEQUACY ? Satisfactory for evaluation but limited by scant squamous epithelial component. GENERAL CATEGORIZATION ? Within Normal Limits ? Document reviewed and electronically signed by: ? Vivian Ramírez, CT(ASCP)(IAC) ? Report Date: ??01/22/2000 10:04 End of Report [facility] 01/09/2000 01/11/2000 us Arlene Abbott MD PATHOLOGY ORDERABLES Final Re sult [facility] [address] [place] [address] documented in this encounter Visit Diagnoses Not on filedocumented in this encounter
--- OUTSIDE RECORDS SUMMARY | 2024-01-26 11:49 | XMS_ITS | Encounter Summary ---
Author Organization [facility] Address [address] [place] [address] Care Team Providers Care Rubber And Pounder Name Role Phone Unavailable Primary Care Provider Unavailabl e Encounter Details Date Type Department Care Team (Late st Contact Info) Description 10/03/2004 Results Only [facility] [address] [place] [address] Joshua Marcelo MD [address] [place] [address] Social History Tobacco Use Types Packs/Day Years [...] Date/Time Associated Diagnosis Comments SURGICAL PATHOLOGY Routine 10/03/2004 0:00 EDT documented in this encounter Results * SURGICAL PATHOLOGY (10/03/2004 0:00 EDT) Pathology Report: SURGICAL PATHOLOGY REPORT Reports generated via electronic interface contain original data; however they are lacking the format of the original report. Caution should be taken when reading/interpreting unformatted reports. Name: ? EDWAR DOMINGUEZ ? Accession #: ? [id number] ? : ? 1975 (Age: 29) ??F ? Collect Date: ? 10/03/2004 ? Location: ? [facility] ? Receive Date: ? 10/03/2004 ? Provider: COOPER MARCELO MD Copy to: ALEXYS DAVIS MD ? Final Pathologic Diagnosis: A. ?Cecum, biopsy: 1. ?No pathologic features. B. ?Colon, hepatic flexure, biopsy: 1. ?No pathologic features. C. ?Colon, splenic flexure, biopsy: 1. ?No pathologic features. ??See comment. D. ?Sigmoid, biopsy: 1. ?No pathologic features. E. ?Rectum, biopsy: 1. ?Chronic active colitis. ??See comment. Comment: ? The biopsy from the rectum shows glandular distortion as well as acute cryptitis and increased lymphoplasmacytic cells in the lamina propria. ??These features are consistent with chronic active colitis. Specimens (C) and (E) have been reviewed at intradepartmental consultation conference. ??(Dr. Forbes)/[facility] Document reviewed and electronically signed by: NONA FORBES MD Report ??Date: 10/04/2004 15:01 By the signature above, the attending physician certifies that he/she has personally conducted a gross and/or microscopic examination of the described specimens and rendered or confirmed the above diagnosis. Specimen(s) Received: A. ?Cecum bx B. ?Hepatic flexure bx C. ?Splenic flexure bx D. ?Sigmoid bx E. ?Rectal bx Clinical History: ? Rectal bleeding, heme-positive stools, severe proctitis Gross Description: ? Received in Hollande's fixative labelled Jem and bx cecum is a 0.2 x 0.1 x 0.1 cm fragment of soft tissue. ??Entirely submitted as (A). Received in Hollande's fixative labelled Jem and bx hepatic flexure is a 0.5 x 0.1 x 0.1 cm fragment of soft tissue. ??Entirely submitted as (B). ?? Received in Hollande's fixative labelled Jem and splenic flexure bx is a 0.3 x 0.2 x 0.1 cm fragment of soft tissue. ??Entirely submitted as (C). Received in Hollande's fixative labelled Jme and sigmoid bx is a 0.4 x 0.2 x 0.1 cm fragment of soft tissue. ??Entirely submitted as (D). ?? Received in Hollande's fixative labelled Jem and rectal bx are two fragments of soft tissue averaging 0.3 x 0.2 x 0.2 cm. ??Entirely submitted as (E). ??(Dr. Aldridge-AD)/g End of Report [facility] 10/03/2004 10/03/2004 15: 03 EDT us Joshua Marcelo MD PATHOLOGY ORDERABLES Final Res ult Performing Organization Address City/State/[facility] Co de Phone Number [facility] [address] [place] [address] documented in this encounter Visit Diagnoses Not on filedocumented in this encounter
--- OUTSIDE RECORDS SUMMARY | 2024-01-26 11:49 | XMS_ITS | Encounter Summary ---
Author Organization [facility] Address [address] [place] [address] Care Team Providers Care Prospecting Observer Name Role Phone Unavailable Primary Care Provider Unavailabl e Encounter Details Date Type Department Care Team (Late st Contact Info) Description 01/20/2001 Results Only [facility] [place] [facility] [address] [place] [address] Mariana Davis MD [address] [place] [address] Social History Tobacco Use Types Packs/Day Years [...] Priority Date/Time Associated Diagnosis Comments CYTOPATHOLOGY Routine 01/20/2001 0:00 EST documented in this encounter Results * CYTOPATHOLOGY (01/20/2001 0:00 EST) Pathology Report: CYTOPATHOLOGY REPORT Reports generated via electronic interface contain original data; however they are lacking the format of the original report. Caution should be taken when reading/interpreti ng unformatted reports. Name: ? EDWAR DOMINGUEZ ? Accession #: ? [id number] : ? 1975 (Age: 26) ??F ?Collect Date: ? 01/20/2001 Location: ? [facility] ? Receive Date: ? 01/23/2001 Provider: ?MARIANA DAVIS MD Copy to: ? Specimen/Source: ?Conventional Pap Test, Cervix/Endocervix Last Menstrual Period: ? 12/16/00 Menstrual/Pregnanc y Status: ? Other: ? Additional clinical information: D & C 09/24 miscarriage ? SPECIMEN ADEQUACY ? Satisfactory for evaluation but limited by obscuring blood. Satisfactory for evaluation but limited by obscuring inflammation. GENERAL CATEGORIZATION ? Within Normal Limits ? Document reviewed and electronically signed by: ? JENNY Lemos(ASCP) ? Report Date: ??01/27/2001 07:22 End of Report [facility] 01/20/2001 01/23/2001 us Mariana Davis MD PATHOLOGY ORDERABLES Final Resul t [facility] [address] [place] [address] documented in this encounter Visit Diagnoses Not on filedocumented in this encounter
--- OUTSIDE RECORDS SUMMARY | 2024-01-26 11:49 | XMS_ITS | Encounter Summary ---
Author Organization [facility] Address [address] [place] [address] Care Team Providers Care Gem Expert Name Role Phone Unavailable Primary Care Provider Unavailabl e Encounter Details Date Type Department Care Team (Late st Contact Info) Description 08/10/2004 Results Only [facility] [place] [facility] conversion [address] [place] [address] Alexys Foley, HEALTH COMMISSIONER [address] [place] [address] Social History Tobacco Use Types Packs/Day [...] Priority Date/Time Associated Diagnosis Comments CYTOPATHOLOGY Routine 08/10/2004 0:00 EDT documented in this encounter Results * CYTOPATHOLOGY (08/10/2004 0:00 EDT) Pathology Report: CYTOPATHOLOGY REPORT Reports generated via electronic interface contain original data; however they are lacking the format of the original report. Caution should be taken when reading/interpreti ng unformatted reports. Name: ? EDWAR DOMINGUEZ ? Accession #: ? [id number] : ? 1975 (Age: 29) ??F ?Collect Date: ? 08/10/2004 Location: ? [facility] ? Receive Date: ? 08/14/2004 Provider: ?ALEXYS FOLEY HEALTH COMMISSIONER Copy to: ? Specimen/Source: ?ThinPrep Pap Test, Cervix/Endocervix Last Menstrual Period: ? 07/29 Other: ? HPVA - HPV testing requested if ASC-US on the current ThinPrep Pap test. ? SPECIMEN ADEQUACY ? Satisfactory for Evaluation - transformation zone component present GENERAL CATEGORIZATION ? Negative for Intraepithelial Lesion or Malignancy INTERPRETATION ? Reactive cellular changes associated with inflammation present (includes repair). ? Document reviewed and electronically signed by: ? DEBORAH FISHER MD ? Report Date: ??08/20/2004 15:14 End of Report [facility] 08/10/2004 08/14/2004 us Alexys Foley NP PATHOLOGY ORDERABLES Final R esult [facility] [address] [place] [address] documented in this encounter Visit Diagnoses Not on filedocumented in this encounter
--- OUTSIDE RECORDS SUMMARY | 2024-01-26 11:49 | XMS_ITS | Encounter Summary ---
Author Organization [facility] Address [address] [place] [address] Care Team Providers Care Chore Worker Name Role Phone Unavailable Primary Care Provider Unavailabl e Encounter Details Date Type Department Care Team (Late st Contact Info) Description 10/14/2000 Results Only [facility] [place] [facility] [address] [place] [address] Mariana Davis MD [address] [place] [address] Social History Tobacco Use Types [...] Date/Time Associated Diagnosis Comments SURGICAL PATHOLOGY Routine 10/14/2000 0:00 EDT documented in this encounter Results * SURGICAL PATHOLOGY (10/14/2000 0:00 EDT) Pathology Report: SURGICAL PATHOLOGY REPORT Reports generated via electronic interface contain original data; however they are lacking the format of the original report. Caution should be taken when reading/interpreti ng unformatted reports. Name: ? EDWAR DOMINGUEZ ? Accession #: ? [id number] ? : ? 1975 (Age: 25) ??F ? Collect Date: ? 10/14/2000 ? Location: ? [facility] ? Receive Date: ? 10/15/2000 ? Provider: MARIANA DAVIS MD Copy to: NERY NICHOLS MD ? Final Pathologic Diagnosis: ? Uterine cavity, evacuation of contents: 1. ?Immature, hydropic chorionic villi, ??inflamed decidua and gestational endometrium identified. 2. ?No tissue identified. ?? Document reviewed and electronically signed by: ENRY ALTMAN MD Report ??Date: 10/16/2000 22:45 By the signature above, the attending physician certifies that he/she has personally conducted a gross and/or microscopic examination of the described specimens and rendered or confirmed the above diagnosis. Specimen(s) Received: Uterine contents Clinical History: ? Incomplete SAB Gross Description: ? Received in formalin labelled Jem and POC ??uterine contents is a 5.5 x 5.5 x 2.0 cm aggregate of multiple pale gu to gu-brown irregularly shaped friable soft and membranous tissue. ??Concrete Bucket Loader sections of villous and membranous tissue are submitted as (A1) and (A2). ??Approximately 5% of the specimen is submitted. ??(Mayra Titus)/tim End of Report [facility] 10/14/2000 10/15/2000 8:5 2 EDT us Mariana Davis MD PATHOLOGY ORDERABLES Final Resul t [facility] [address] [place] [address] documented in this encounter Visit Diagnoses Not on filedocumented in this encounter
--- OUTSIDE RECORDS SUMMARY | 2024-01-26 11:49 | XMS_ITS | Encounter Summary ---
Author Organization [facility] Address [address] [place] [address] Care Team Providers Care Air Value Tester Name Role Phone Unavailable Primary Care Provider Unavailabl e Encounter Details Date Type Department Care Team (Late st Contact Info) Description 08/10/2003 Results Only [facility] conversion [address] [place] [address] Alexys Foley, BIOMEDICAL EQUIPMENT TECH [address] [place] [address] Social History Tobacco Use Types [...] Priority Date/Time Associated Diagnosis Comments CYTOPATHOLOGY Routine 08/10/2003 0:00 EDT documented in this encounter Results * CYTOPATHOLOGY (08/10/2003 0:00 EDT) Pathology Report: CYTOPATHOLOGY REPORT Reports generated via electronic interface contain original data; however they are lacking the format of the original report. Caution should be taken when reading/interpreti ng unformatted reports. Name: ? EDWAR DOMINGUEZ ? Accession #: ? [id number] : ? 1975 (Age: 28) ??F ?Collect Date: ? 08/10/2003 Location: ? [facility] ? Receive Date: ? 08/12/2003 Provider: ?ALEXYS FOLEY BIOMEDICAL EQUIPMENT TECH Copy to: ? Specimen/Source: ?ThinPrep Pap Test, Vagina/Cervix Last Menstrual Period: ? 07/09/03 Hormonal/Contracep tive Status: ? Depo-Provera Other: ? HPVA - HPV testing requested if ASC-US on the current ThinPrep Pap test. ? SPECIMEN ADEQUACY ? Satisfactory for Evaluation - transformation zone component present GENERAL CATEGORIZATION ? Negative for Intraepithelial Lesion or Malignancy ? Document reviewed and electronically signed by: ? JENNY Jung(ASCP) ? Report Date: ??08/17/2003 09:45 End of Report [facility] [place] 08/10/2003 08/12/2003 us Alexys Foley NP PATHOLOGY ORDERABLES Final R esult [facility] [place] [address] [place] [address] documented in this encounter Visit Diagnoses Not on filedocumented in this encounter
--- OUTSIDE RECORDS SUMMARY | 2024-01-26 11:49 | XMS_ITS | Encounter Summary ---
Author Organization [facility] Address [address] [place] [address] Care Team Providers Care Prints And Drawings Curator Name Role Phone Unavailable Primary Care Provider Unavailabl e Encounter Details Date Type Department Care Team (Late st Contact Info) Description 10/08/[address] [facility] [place] [facility] [address] [place] [address] Mariana Davis MD [address] [place] [address] Social History Tobacco Use Types [...] Priority Date/Time Associated Diagnosis Comments CYTOPATHOLOGY Routine 10/08/2001 0:00 EDT documented in this encounter Results * CYTOPATHOLOGY (10/08/2001 0:00 EDT) Pathology Report: CYTOPATHOLOGY REPORT Reports generated via electronic interface contain original data; however they are lacking the format of the original report. Caution should be taken when reading/interpreti ng unformatted reports. Name: ? EDWAR DOMINGUEZ ? Accession #: ? [id number] : ? 1975 (Age: 26) ??F ?Collect Date: ? 10/08/2001 Location: ? [facility] ? Receive Date: ? 10/12/2001 Provider: ?MARIANA DAVIS MD Copy to: ? Specimen/Source: ?ThinPrep Pap Test, Cervix/Endocervix Last Menstrual Period: ? 11/14/00 Menstrual/Pregnanc y Status: ? Post ? SPECIMEN ADEQUACY ? Satisfactory for Evaluation - transformation zone component present GENERAL CATEGORIZATION ? Negative for Intraepithelial Lesion or Malignancy ? Document reviewed and electronically signed by: ? Cheryl Miller, ??SCT(ASCP) ? Report Date: ??10/13/2001 11:40 End of Report [facility] 10/08/2001 10/12/2001 us Mariana Davis MD PATHOLOGY ORDERABLES Final Resul t [facility] [address] [place] [address] documented in this encounter Visit Diagnoses Not on filedocumented in this encounter
--- OUTSIDE RECORDS SUMMARY | 2024-01-26 11:49 | XMS_ITS | Encounter Summary ---
Author Organization [facility] Address [address] [place] [address] Care Team Providers Care Anesthesiologist Assistant Name Role Phone Unavailable Primary Care Provider Unavailabl e Encounter Details Date Type Department Care Team (Late st Contact Info) Description 11/14/2006 Results Only [facility] [place] conversion [address] [place] [address] Cielo Nichols MD [address] [address] Social History Tobacco Use Types [...] Priority Date/Time Associated Diagnosis Comments CYTOPATHOLOGY Routine 11/14/2006 0:00 EDT documented in this encounter Results * CYTOPATHOLOGY (11/14/2006 0:00 EDT) Pathology Report: CYTOPATHOLOGY REPORT Reports generated via electronic interface contain original data; however they are lacking the format of the original report. Caution should be taken when reading/interpreti ng unformatted reports. Name: ? EDWAR DOMINGUEZ ? Accession #: ? [id number] : ? 1975 (Age: 31) ??F ?Collect Date: ? 11/14/2006 Location: ? [facility] ? Receive Date: ? 11/17/2006 Provider: ?CIELO NICHOLS MD Copy to: ? Specimen/Source: ?ThinPrep Pap Test, Cervix/Endocervix, processed on [employer] ThinPrep Imaging System, with manual evaluation Last Menstrual Period: ? 10/29/06 Hormonal/Contracep tive Status: ? Depo-Provera Other: ? HPVA - HPV testing requested if ASC-US on the current ThinPrep Pap test. ? SPECIMEN ADEQUACY ? Satisfactory for Evaluation - transformation zone component present - scant squamous epithelial component secondary to excessive blood GENERAL CATEGORIZATION ? Negative for Intraepithelial Lesion or Malignancy ? Document reviewed and electronically signed by: ? JENNY Skelton(ASCP) ? Report Date: ??11/21/2006 14:52 End of Report [facility] 11/14/2006 11/17/2006 us Cielo Nichols MD PATHOLOGY ORDERABLES Final Resul t [facility] [address] [place] [address] documented in this encounter Visit Diagnoses Not on filedocumented in this encounter
[2024-01-26 15:27] LABS: HCT 29.8 % (36.0-46.0); HGB 8.9 g/dL (11.2-15.7); MCH 21.8 pg (27.0-33.0); MPV 9.6 fL (8.0-11.0); Platelet Count 355 10^3/uL (130-400); RBC 4.08 10^6/uL (3.93-5.22); RDW 14.4 % (11.7-14.6); RDW-SD 38.3 fL; WBC 5.92 10^3/uL (4.4-10.8)
[2024-01-26 15:59] LABS: MCHC 29.9 % (32.0-36.0); MCV 73 fL (80-95)
[2024-01-26 16:10] LABS: Anion Gap 10.5 mmol/L (3-11); BUN 13 mg/dL (7-18); CO2 25.5 mmol/L (21.0-32.0); CREATININE 0.9 mg/dL (0.55-1.02); Calcium 8.4 mg/dL (8.5-10.1); Chloride 106 mmol/L (98-107); Estimated GFR 78.37 (mL/min/1.73m2); Ferritin 5 ng/mL (8-252); Glucose 98 mg/dL (74-106); Potassium 4.2 mmol/L (3.5-5.1); Sodium 142 mmol/L (136-145)
== END 2024-01-26 11:45 | disposition home or self-care (01) ==
LOC: NCHCN 11:44
PROVIDERS: PCP Family Medicine; Visit Provider Family Medicine
DX: Z86.2 Personal history of diseases of the blood and blood-forming organs and certain disorders involving the immune mechanism (principal); I10 Essential (primary) hypertension
CPT/HCPCS: 80048; 85027; 82728

== ENCOUNTER 2024-02-02 11:11 | Outpatient (REF) | payer MEDICAID, SELFPAY ==
[2024-02-02 14:58] LABS: HCT 32.2 % (36.0-46.0); HGB 9.7 g/dL (11.2-15.7); MCH 22.1 pg (27.0-33.0); MCHC 30.1 % (32.0-36.0); Platelet Count 362 10^3/uL (130-400); RBC 4.39 10^6/uL (3.93-5.22); RDW 16.1 % (11.7-14.6); RDW-SD 39.4 fL; WBC 8.29 10^3/uL (4.4-10.8)
[2024-02-02 15:23] LABS: MCV 73 fL (80-95)
[2024-02-03 10:18] LABS: IgA 374 mg/dL (85-499)
[2024-02-04 23:56] LABS: Tissue Transglutaminase Ab IgG 4.5 U/mL
== END 2024-02-02 11:12 | disposition home or self-care (01) ==
LOC: NCHCN 11:11
PROVIDERS: PCP Family Medicine; Visit Provider Family Medicine
DX: D50.9 Iron deficiency anemia, unspecified (principal)
CPT/HCPCS: 82784; 85027; 86364

== ENCOUNTER 2024-02-11 09:48 | Outpatient (REF) | payer MEDICAID, SELFPAY ==
--- NOTE | 2024-02-11 09:38 | ENDOMET_PTH ---
PATIENT: Nilda Parish LOC: [facility] U#:[id number] AGE/SX: 49/F ROOM: RE02/11/[address]: Debo Tamayo MD : 1975 BED: DIS: 02/11/2024 SPEC #: [id number] RECD: 02/11/24 13:01 STATUS: LAINE REKathy #: [id number] SATNAM: 02/11/24 09:[address]: Debo Tamayo DEPT: Surgical Specimen RECD BY: Kristina Claire ENTERED: 02/11/24 13:02 SP TYPE: Endomet OTHR DR: Cielo Goncalves Tissues: 1 - ENDOMETRIUM BX/FIOR Procedures: GROSS AND MICRO LEVEL 4 Comments: [id number]
== END 2024-02-11 09:49 | disposition home or self-care (01) ==
LOC: LBN 09:48
PROVIDERS: PCP Family Medicine; Visit Provider Obstetrics & Gynecology
DX: N85.9 Noninflammatory disorder of uterus, unspecified (principal); N85.01 Benign endometrial hyperplasia
CPT/HCPCS: 88305

== ENCOUNTER 2024-03-24 09:58 | Outpatient (REF) | payer MEDICAID, SELFPAY ==
--- OUTSIDE RECORDS SUMMARY | 2024-03-24 10:04 | XMS_ITS | Continuity of Care Document ---
Author Organization MD - [facility] Address [address] [place] [address] Assessment No assessment recorded. Plan of Treatment Reminders Order Date Submit Date Provider Last Modified By Organization Details Last Modified Time Details Appointments Nurse Visit 2024 08:40A M [facility] Nursing Staff Not available Not available Not available Follow Up 2024 11:00A M Cielo Nichols Not available Not available Not available Lab CBC 2023 025 [facility] (Registration ), [address] [place] [address] [place], [address], 03/24/2024 09:10:39 ferriti n, serum or plasma 2023 025 [facility] (Registration ), [address] [place] [address] [place], [address], 03/24/2024 09:10:38 Referral None recorde d. Procedures None recorde d. Surgeries None recorde d. Imaging None recorde d. Medication Orders None recorde d. Patient TargetsNo targets recorded. Patient InstructionsNo instructions recorded. Reason for Referral None Reported. Problems Name Problem SNOMED Code Status Onset Date Resolution Date Notes Provider Name and Address Organization Details Recorded Time Prediabe sidney [id number] Completed 200701/31/2023 01/29/20 22 - Comments only - Cielo Nichols MD - Most recent labs WNL, repeat next year, strong FH of diabetes , doing a good job eating well and walking. Problem Code: R73.03; Problem Code Type: ICD-10; Removal Reason: A1C always normal, fasting sugars normal last few years. MD [address], [place], [address] , [facility] 3 13:20:23 Obesity 452024914 Active [address], [facility] [address] , [facility] 4 15:33:05 Eczema 13050100 Active [address], [facility] [address] , [facility] 4 15:32:39 [facility] hyperten ger 08419718 Active [address], [facility] [address] , [facility] 3 13:14:38 Acne 29047744 Active [address], [facility] [address] , [facility] 4 15:32:30 Adult health examinat ion Completed 201402/01/2024 Problem Code: Z00.00; Problem Code Type: ICD-10; MD [address], [place], [address] , [facility] 4 15:32:33 Impetigo 34698947 Completed 201401/23/2015 01/17/20 15 - Comments only - Cielo Nichols MD - Start Bactroba n 3 times daily to yellow crusty areas on face Problem Code: L01.00; Problem Code Type: ICD-10; Not Available [facility] 3 04:53:23 Fever 331300692 Completed 201504/21/2015 Problem Code: R50.9; Problem Code Type: ICD-10; Not Available [facility] 3 04:53:23 Nausea 239053144 Completed 201504/21/2015 04/05/19 16 - Comments only [...] R11.0; Problem Code Type: ICD-10; Not Available [facility] 3 04:53:23 Noninfec tious gastroen teritis 81266605 Completed 201604/22/2016 04/08/19 17 - Comments only - Cielo Nichols MD - Check stool cultures . Hold on antibiot ics. Return to clinic or present to emergenc y room if she develops severe abdomina l pain, or fevers. Not Available [facility] 3 04:53:23 Ulcerati ve colitis 76190109 Active 2016 Dr. Dean , [facility] MD [address], [place], [address] , [facility] 4 15:33:55 Screenin g for malignan t neoplasm of breast Completed 201802/01/2024 Problem Code: Z12.39; Problem Code Type: ICD-10; MD [address], [place], [address] , [facility] 4 15:33:16 Mitral valve regurgit ation 40688614 Active 2019 moderate 10/2019: due for repeat ECHO [address], [place], [address] [place] [address] , [facility] 4 15:34:55 Localize d eruption of skin 425724533 Completed 201912/16/2019 09/21/19 20 - Comments only - 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 Now located just to labia. No satellit [...] Problem Code: R21; Problem Code Type: ICD-10; MD [address], [place], [address] , [facility] 4 15:33:27 Pregnanc y 55224305 Completed 202011/03/2020 10/21/19 21 - Comments only - Cielo Nichols MD - By LMP she is 6 weeks 6 days. High risk given HTN, CKD, age and colitis. 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 OB ultrasou nd as soon as possible . Quantita tive HCG drawn today (recent TAB, would like baseline level in case she has any bleeding ) Problem Code: Z33.1; Problem Code Type: ICD-10; Not Available [facility] 3 04:53:25 Headache 30341721 Active [address], [place], [address] , [facility] 4 15:32:51 Gastroes ophageal reflux disease without esophagi tis 590761532 Active [address], [place], [address] , [facility] 4 15:32:47 Hyperlip idemia screenin g Completed 202107/16/2021 Problem Code: Z13.220; Problem Code Type: ICD-10; Not Available [facility] 3 04:53:25 Impaired fasting glycemia 644929707 Completed 200711/20/2022 Not Available [facility] 3 04:53:25 Pain of right knee joint 54795793558 4100 Completed 201709/01/2019 Problem Code: M25.561; Problem Code Type: ICD-10; Not Available [facility] 3 04:53:25 Streptoc occal sore throat 52518450 Completed 201404/05/2015 Problem Code: J02.0; Problem Code Type: ICD-10; Not Available [facility] 3 04:53:26 Melena 9831452 Completed 201605/15/2016 Problem Code: K92.1; Problem Code Type: ICD-10; Not Available [facility] 3 04:53:26 Abdomina l pain 73332630 Completed 201605/15/2016 Problem Code: R10.9; Problem Code Type: ICD-10; Not Available [facility] 3 04:53:26 Intraute rine contrace ptive device in situ 787262650 Completed 200909/01/2019 Problem Code: Z97.5; Problem Code Type: ICD-10; Not Available [facility] 3 04:53:26 Acute stress disorder 70344460 Completed 201809/01/2019 Problem Code: F43.0; Problem Code Type: ICD-10; Not Available [facility] 3 04:53:26 Bleeding from nose 077836680 Completed 202101/28/2022 Problem Code: R04.0; Problem Code Type: ICD-10; Not Available [facility] 3 04:53:26 Heart murmur 60199984 Completed 201911/20/2022 Problem Code: R01.1; Problem Code Type: ICD-10; Not Available [facility] 3 04:53:27 Miscarri age without complica tion 45270842 Completed 201903/13/2020 Problem Code: O03.9; Problem Code Type: ICD-10; Not Available [facility] 3 04:53:27 Hyperten sive disorder 68194987 Completed 200811/20/2022 Not Available [facility] 3 04:53:27 Disorder of kidney and/or ureter 661523203 Completed 201408/03/2015 Problem Code: N28.9; Problem Code Type: ICD-10; Not Available [facility] 3 04:53:28 Pleuriti c pain 5528085 Completed 201903/13/2020 Problem Code: R07.81; Problem Code Type: ICD-10; Not Available [facility] 3 04:53:28 History of nutritio nal disorder 745874360 Completed 200711/20/2022 03/24/19 20 - Comments only - Cielo Nichols MD - She has had a couple of blood sugars over 100, unclear if those were fasting. With next set of labs will get fasting labs includin g glucose and hemoglob in A1c to clarify whether she meets criteria of prediabe sidney. Not Available [facility] 3 04:53:28 Contact dermatit is 09643319 Completed 201810/20/2020 Problem Code: L25.9; Problem Code Type: ICD-10; Not Available [facility] 3 04:53:28 Iron deficien cy anemia 77973179 Completed 201601/23/2017 Problem Code: D50.9; Problem Code Type: ICD-10; Not Available [facility] 3 04:53:29 Hypokale andrew 86529434 Completed 201701/28/2022 Problem Code: E87.6; Problem Code Type: ICD-10; Not Available [facility] 3 04:53:29 History of anemia - iron deficien t 386536555 Active [address], [place], [address] , [facility]. 3 13:11:56 Localize d eruption of skin 176548991 Completed 202202/01/2024 11/07/19 23 - Comments only - Cielo Nichols MD - Quite nonspeci fic. No internal vaginal itching or discharg e. Nonspeci fic findings , pruritus is the primary complain t. I have suggestnorman d treating her with oral fluconaz ole 1 dose now and repeat if symptoms persist in a week, and try some Vistaril to help avoid itching and scratchi ng. Problem Code: R21; Problem Code Type: ICD-10; CIELO NICHOLS MD [address], [place], [address] , [facility] 4 15:33:27 Problem Notes None recorded. Procedures Surgical History Date Name Laterality Status Provider Name and Address Organization Details Recorded Time 1 Date of Last Pap Smear completed ELIZABETH HOLCOMB BEH[facility]IOR[facility] INTERVENTION SPECIALIST [facility] 01/30/2023 10:54:42 9 Most Recent Mammogram completed ELIZABETH HOLCOMB BEHAVIOR[facility] INTERVENTION SPECIALIST [facility] 01/30/2023 10:55:47 9 Date of Last Mammogram completed ELIZABETH HOLCOMB LPN [facility] 01/30/2023 10:56:56 7 Date of Last Colonoscopy completed ELIZABETH HOLCOMB [facility] INTERVENT[facility] SPECIALIST [facility] 01/30/2023 10:56:05 Imaging Results None recorded. Procedure [...] TAKE ONE TABLET BY MOUTH EVERY DAY 2023 active Not Available Not Available Not Avai lable nifedipine 10 mg capsule Take 1 capsule by mouth twice a day 06/04 completed Not Available Not Available Not Available amlodipine 10 mg tablet TAKE ONE TABLET BY MOUTH EVERY DAY 2023 active Not Available Not Available Not Avai lable Bactroban 2 % topical ointment apply three times a day to affected areas on face 05/04 completed Not Available Not Available Not Available ferrous sulfate 325 mg (65 mg iron) tablet Take 1 tablet by mouth qod 2023 active Not Available Not Available Not Avai lable Cipro 500 mg tablet 1 po bid [...] NEEDED FOR ITCHING; MAY CAUSE DROWSINE SS 02/01 completed Not Available Not Available Not Available losartan 100 mg tablet Take 1 tablet by mouth once a day 06/20 completed Not Available Not Available Not Available clotrimazo le 1 % topical cream Apply to skin twice a day as directed 06/04 completed Not Available Not Available Not Available irbesartan 300 mg tablet TAKE ONE TABLET BY MOUTH EVERY DAY 2023 active Not Available Not Available Not Avai lable loratadine 10 mg tablet Take 1 by [...] completed Not Available Not Available Not Available Liletta placed 12/18/24 active Not Available Not Available No t Available riboflavin (vitamin B2) 400 mg tablet Take 1 tablet by mouth once a day OTC 2021 active Not Available Not Available Not Avai lable Vitals None Recorded Social History Question Answer Notes LastModified by Organizat ion Details LastModified Time Tobacco Smoking Status Never Smoker ELIZABETH HOLCOMB LPN [facility], [place] - [facility]. 01/30/2023 10:54:00 Would You Say That, In General, Your Health Is Good Information not available 02/02/2024 Women Aged 18-50 - Would You Like [...] IV Drugs? No Information not available 01/31/2023 Date Of Most Recent SBINS 02/02/2024 Information not available 02/02/2024 What Was The Date Of Your Most Recent Tobacco Screening? 02/02/2024 Information n ot available 02/02/2024 Has Tobacco Cessation Counseling Been Provided? No Information not available 02/02/2024 Do You Or Have You Ever Used [...] 0 0 Immunizations Vaccine Type Date Status Note Provider Nam e and Address Organization Details Recorded Time Td (adult), 2 Lf tetanus toxoid, preservative free, adsorbed 8 completed Not Available [facility] 01/03/2023 05:46:29 Tdap 2 completed Not Available [facility] 01/03/2023 05:46:29 Tdap 8 completed Not Available [facility] 01/03/2023 05:46:29 Td(adult) unspecified formulation 4 completed Not Available [facility] 01/03/2023 05:46:29 Influenza, split virus, trivalent, preservative 5 completed Not Available [facility] 01/03/2023 05:46:29 Influenza, split virus, quadrivalent, PF 2 completed Not Available [facility] 01/03/2023 05:46:29 Influenza, split virus, quadrivalent, preservative 7 completed Not Available [facility] 01/03/2023 05:46:29 COVID-19, mRNA, LNP-S, PF, 100 mcg/0.5mL dose or 50 mcg/0.25mL dose 2 completed Not Available [facility] 01/03/2023 05:46:29 SARS-COV-2 (COVID-19) vaccine, UNSPECIFIED 1 completed Not Available [facility] 01/03/2023 05:46:29 SARS-COV-2 (COVID-19) vaccine, UNSPECIFIED 1 completed Not Available [facility] 01/03/2023 05:46:30 COVID-19, mRNA, LNP-S, bivalent, PF, 30 mcg/0.3 mL dose 3 completed Not Available [facility] 01/03/2023 05:46:30 influenza, unspecified formulation 1 completed Not Available [facility] 01/03/2023 05:46:30 influenza, unspecified formulation 2 completed Not Available [facility] 01/03/2023 05:46:30 COVID-19, mRNA, LNP-S, PF, jaya-sucrose, 30 mcg/0.3 mL 4 completed CIELO NICHOLS MD [address], [place], [address], [facility] 02/02/2024 11:11:48 Influenza, split virus, trivalent, PF 4 completed CIELO NICHOLS MD [address], [facility] [address], [facility] 02/02/2024 11:11:48 Influenza, split virus, quadrivalent, PF 3 completed MD [address], [facility] [address], [facility] 01/31/2023 16:54:28 COVID-19, mRNA, LNP-S, PF, jaya-sucrose, 30 mcg/0.3 mL 3 completed Sheyla Mina RN [facility] 02/07/2023 09:09:44 Past Encounters Encounter ID Performer Location Encounter Start Date Encounter Closed Date Diagnosis/Indication Diagnosis SNOMED-CT Code Diagnosis ICD10 Code Diagnosis Note [id number] Sheyla Mina RN [facility] [address] [place] [address] 03/24/2024 08:55:22 03/24/2024 09:03:17 Iron deficiency anemia [id number] D50.9 Health Concerns Section Related Observation LastModified by Organization Detai ls LastModified Time None Recorded Concern Status LastModified by Organization Details LastModified Time None Recorded Payers Encounter Date Sequence Insurance Name Policy Number Policy Brandon Covered Member ID Brandon Member ID Guarantor Name 03/24/2024 1 [facility] (MEDICAID) Nilda Parish [id number] Nilda Parish OBGyn Episode No OBEpisode recorded.
--- OUTSIDE RECORDS SUMMARY | 2024-03-24 10:05 | XMS_ITS | Encounter Summary ---
[place] [address] Care Team Providers Care Supervisor Computer Operations Name Role Phone Cielo Goncalves MD Primary Care Provider [phone] Reason for Visit * Auth/Cert Specialty Diagnoses / Procedures Referred By Contmonico t Referred To Contact Diagnoses preeclampsia Procedures EMERGENCY IPI Referral ID Status Reason Start Date Expiration Date Visits Re quested Visits Authorized [id number] 1 1 Encounter Details Date Type Department Care Team (Latest Contact Info) Description 05/06/2021 12:15 PM EDT - 05/06/2021 12:43 PM EDT [place] [phone] Modesta Jaquez MD [facility] DR OBSTETRICS [facility] [place] [address] Discharge Disposition: Home Social History Tobacco Use [...] 30 tablet 2 05/04/2021 vitamin 27 & [id number] 60 mg iron-1 mg Tablet Take 1 [...] on filedocumented in this encounter Care Teams Supervisor Computer Operations Relationship Specialty Start Date End Date Cielo Goncalves MD [facility]I REMY [facility] [address] [place] [address] PCP - General 01/16/10 documented as of this encounter
--- OUTSIDE RECORDS SUMMARY | 2024-03-24 10:05 | XMS_ITS | Encounter Summary ---
Author Organization [facility] Address [facility] [place] [address] Care Team Providers Care Quick Service Technician Name Role Phone Cielo Goncalves MD Primary Care Provider [phone] Encounter Details Date Type Department Care Team (Late st Contact Info) Description 06/05/2021 Telephone Obstetrics [place] [phone] Mandie Aguilera MD [facility] DR OBSTETRICS & [place] [address] Social History Tobacco Use Types Packs/Day Years [...] on filedocumented in this encounter Care Teams Quick Service Technician Relationship Specialty Start Date End Date Cielo Goncalves MD [address] [place] [address] [facility] [address] [place] [address] PCP - General 01/16/10 documented as of this encounter
--- OUTSIDE RECORDS SUMMARY | 2024-03-24 10:05 | XMS_ITS | Continuity of Care Document ---
Author Organization [facility] Address [address] [facility] [place] [address] Assessment No assessment recorded. Plan of Treatment Reminders Order Date Submit Date Provider Last Modified By Organization Details Last Modified Time Details Appointments Nurse Visit 2024 08:40A M [facility] Nursing Staff Not available Not available Not available Follow Up 2024 11:00A M Cielo Nichols Not available Not available Not available Lab tissue transglu taminase iga Ab, serum 2023 024 [facility] (Registration ), [address] [place] [address] [place], [address], 02/06/2024 16:19:05 iga, quantita tive, serum 2023 024 [facility] (Registration ), [address] [place] [address] [place], [address], 02/03/2024 12:45:39 CBC 2023 024 [facility] (Registration ), [address] [place] [address] [place], [address], 02/02/2024 15:25:57 CBC 2023 025 [facility] (Registration ), [address] [place] [address] [place], [address], 03/24/2024 09:10:39 ferritin , serum or plasma 2023 025 [facility] (Registration ), [address] [place] [address] , [place], [address], 03/24/2024 09:10:38 Referral ENT surgery referral - spot on left side of nose suspicio us for basal cell ca 2023 024 [email or web address] Sergei Varelapatrick DO, [address] [place] [address] , [place], [address], 03/03/2024 10:35:56 gynecolo gist referral - almost 3 years post . She has heavy menses. Recent CBC, first one since 05/2021 shows signific ant anemia, with Hgb of 8.8 and ferritin of only 5. She is schedule d for a colonosc opy soon for her ulcerati ve colitis, which has been quiet. Prior to EGD investig ation, more likely caused by her heavy menses, would agree to IUD... 2023 024 [facility] [address] [place] [address] , [place], [address], 02/24/2024 09:47:54 Procedures None recorded . Surgeries None recorded . Imaging MAMMO, screenin g, bilatera l 2023 025 [email or web address] [facility], [address], [place], [address], 02/02/2024 10:16:52 Medication Orders ferrous sulfate 325 mg (65 mg iron) tablet 2023 024 [id number], [address] [facility], [place], [address], 02/02/2024 09:57:12 Patient TargetsNo targets recorded. Patient Instructions Encounter Date Encounter Id Patient Instructions Last Modified By Organization Details Last Modified Time 02/02/2024 [id number] diet Not available 02/01 11:07:42 Reason for Referral Online Banking Specialist Referral for Me norrhagia almost 3 years post . She has heavy menses. Recent CBC, first one since 05/2021 shows significant anemia, with Hgb of 8.8 and ferritin of only 5. She is scheduled for a colonoscopy soon for her ulcerative colitis, which has been quiet. Prior to EGD investigation, more likely caused by her heavy menses, would agree to IUD... Referring Physician: Cielo Nichols [facility], Encounter Date: 02/02/2024 ENT Surgery Referral for Les ion of skin of face spot on left side of nose suspicious for basal cell ca Referring Physician: Cielo Nichols [facility], Encounter Date: 02/02/2024 Problems Name Problem SNOMED Code Status Onset Date Resolution Date Notes Provider Name and Address Organization Details Recorded Time Prediabe sidney 190259628 Completed 200701/31/2023 01/29/20 22 - Comments only - Cielo Nichols MD - Most recent labs WNL, repeat next year, strong FH of diabetes , doing a good job eating well and walking. Problem Code: R73.03; Problem Code Type: ICD-10; Removal Reason: A1C always normal, fasting sugars normal last few years. MD [address], [facility] [address] , [facility] 3 13:20:23 Obesity 333629410 Active [address], [facility] [address] , [facility] 4 15:33:05 Eczema 48132527 Active [address], [facility] [address] , [facility] 4 15:32:39 Essentia l hyperten ger 90661648 Active [address], [facility] [address] , [facility] 3 13:14:38 Acne 49228886 Active [address], [facility] [address] , [facility] 4 15:32:30 Adult health examinat ion Completed 201402/01/2024 Problem Code: Z00.00; Problem Code Type: ICD-10; MD [address], [place], [address] , [facility] 4 15:32:33 Impetigo 36138374 Completed 201401/23/2015 01/17/20 15 - Comments only - Cielo Nichols MD - Start Bactroba n 3 times daily to yellow crusty areas on face Problem Code: L01.00; Problem Code Type: ICD-10; Not Available [facility] 3 04:53:23 Fever 755961649 Completed 201504/21/2015 Problem Code: R50.9; Problem Code Type: ICD-10; Not Available [facility] 3 04:53:23 Nausea 142207172 Completed 201504/21/2015 04/05/19 16 - Comments only [...] R11.0; Problem Code Type: ICD-10; Not Available [facility] 3 04:53:23 Noninfec tious gastroen teritis 54018919 Completed 201604/22/2016 04/08/19 17 - Comments only - Cielo Nichols MD - Check stool cultures . Hold on antibiot ics. Return to clinic or present to emergenc y room if she develops severe abdomina l pain, or fevers. Not Available [facility] 3 04:53:23 Ulcerati ve colitis 50429438 Active 2016 Dr. 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 [...] Code Type: ICD-10; MD [address], [place], [address] , [facility] 4 15:33:27 Pregnanc y 19552443 Completed 202011/03/2020 10/21/19 21 - Comments only - Cielo Nichols MD - By LMP she is 6 weeks 6 days. High risk given HTN, CKD, age and colitis. Referral s made to both [facility] and [facility] high school sports coach. OB ultrasou nd as soon as possible . Quantita tive HCG drawn today (recent TAB, would like baseline level in case she has any bleeding ) Problem Code: Z33.1; Problem Code Type: ICD-10; Not Available [facility] 3 04:53:25 Headache 18542553 Active 2021 CIELO NICHOLS MD [address], [facility] [address] , [facility] 4 15:32:51 Gastroes ophageal reflux disease without esophagi tis 244976408 Active [address], [facility] [address] , [facility] 4 15:32:47 Hyperlip idemia screenin g Completed 202107/16/2021 Problem Code: Z13.220; Problem Code Type: ICD-10; Not Available [facility] 3 04:53:25 Impaired fasting glycemia 683733684 Completed 200711/20/2022 Not Available [facility] 3 04:53:25 Pain of right knee joint 93050984934 4100 Completed 201709/01/2019 Problem Code: M25.561; Problem Code Type: ICD-10; Not Available [facility] 3 04:53:25 Streptoc occal sore throat 15118952 Completed 201404/05/2015 Problem Code: J02.0; Problem Code Type: ICD-10; Not Available [facility] 3 04:53:26 Melena 0486589 Completed 201605/15/2016 Problem Code: K92.1; Problem Code Type: ICD-10; Not Available [facility] 3 04:53:26 Abdomina l pain 24705713 Completed 201605/15/2016 Problem Code: R10.9; Problem Code Type: ICD-10; Not Available [facility] 3 04:53:26 Intraute rine contrace ptive device in situ 115901199 Completed 200909/01/2019 Problem Code: Z97.5; Problem Code Type: ICD-10; Not Available [facility] 3 04:53:26 Acute stress disorder 24135926 Completed 201809/01/2019 Problem Code: F43.0; Problem Code Type: ICD-10; Not Available [facility] 3 04:53:26 Bleeding from nose 458389911 Completed 202101/28/2022 Problem Code: R04.0; Problem Code Type: ICD-10; Not Available [facility] 3 04:53:26 Heart murmur 49420914 Completed 201911/20/2022 Problem Code: R01.1; Problem Code Type: ICD-10; Not Available [facility] 3 04:53:27 Miscarri age without complica tion 36912011 Completed 201903/13/2020 Problem Code: O03.9; Problem Code Type: ICD-10; Not Available [facility] 3 04:53:27 Hyperten sive disorder 60526231 Completed 200811/20/2022 Not Available [facility] 3 04:53:27 Disorder of kidney and/or ureter 627975179 Completed 201408/03/2015 Problem Code: N28.9; Problem Code Type: ICD-10; Not Available [facility] 3 04:53:28 Pleuriti c pain 6230715 Completed 201903/13/2020 Problem Code: R07.81; Problem Code Type: ICD-10; Not Available [facility] 3 04:53:28 History of nutritio nal disorder 824330657 Completed 200711/20/2022 03/24/19 20 - Comments only - Cielo Nichols MD - She has had a couple of blood sugars over 100, unclear if those were fasting. With next set of labs will get fasting labs includin g glucose and hemoglob in A1c to clarify whether she meets criteria of prediabe sidney. Not Available [facility] 3 04:53:28 Contact dermatit is 90750708 Completed 201810/20/2020 Problem Code: L25.9; Problem Code Type: ICD-10; Not Available [facility] 3 04:53:28 Iron deficien cy anemia 07654511 Completed 201601/23/2017 Problem Code: D50.9; Problem Code Type: ICD-10; Not Available [facility] 3 04:53:29 Hypokale andrew 45710718 Completed 201701/28/2022 Problem Code: E87.6; Problem Code Type: ICD-10; Not Available [facility] 3 04:53:29 History of anemia - iron deficien t 080824329 Active [address], [place], [address] , [facility] 3 13:11:56 Localize d eruption of skin 695111089 Completed 202202/01/2024 11/07/19 23 - Comments only [...] Code Type: ICD-10; MD [address], [place], [address] , [facility] 4 15:33:27 Problem Notes None recorded. Procedures Surgical History Date Name Laterality Status Provider Name and Address Organization Details Recorded Time 1 Date of Last Pap Smear completed ELIZABETH HOLCOMB LPN [facility] 01/30/2023 10:54:42 9 Most Recent Mammogram completed ELIZABETH HOLCOMB LPN [facility] 01/30/2023 10:55:47 9 Date of Last Mammogram completed ELIZABETH HOLCOMB LPN [facility] 01/30/2023 10:56:56 10/05/201 7 Date of Last Colonoscopy completed ELIZABETH HOLCOMB LPN [facility] 01/30/2023 10:56:05 Imaging Results None recorded. [...] 2011 active Not Available Not Available Not Linda trent Apriso 0.375 gram capsule,ex tended release TAKE [...] Available Not Available Not Available Liletta placed 02/11/24 active Not Available Not Available No t Available riboflavin (vitamin B2) 400 mg tablet Take 1 tablet by mouth once a day OTC 2021 active Not Available Not Available Not Linda trent Vitals Date Recorded Body height Body mass index (BMI) Body weight Body temperature Oxygen saturation Oxygen saturation in Arterial blood by Pulse oximetry Heart rate Respiratory rate Systolic blood pressure Diastolic blood pressure Provider Name and Address Organization Details Last Updated DateTime 4 160.02 cm 32.8 kg/m2 41853.5 9 g 98.1 [degF] 99 % 99 % 88 /min 18 /min 124 mm[Hg] 80 mm[Hg] ELIZABETH HOLCOMB LPN [facility] 09:29:38 Social History Question Answer Notes LastModified by Organizat ion Details LastModified Time Tobacco Smoking Status Never Smoker ELIZABETH HOLCOMB LPN [facility], [facility]. 01/30/2023 10:54:00 Would You Say That, In [...] preservative free, adsorbed 8 completed Not Available [facility] 01/03/2023 05:46:29 Tdap 2 completed Not Available [facility] 01/03/2023 05:46:29 Tdap 8 completed Not Available [facility] 01/03/2023 05:46:29 Td(adult) unspecified formulation 4 completed Not Available [facility] 01/03/2023 05:46:29 Influenza, split virus, trivalent, preservative 5 completed Not Available [facility] 01/03/2023 05:46:29 Influenza, split virus, quadrivalent, PF 2 completed Not Available [facility] 01/03/2023 05:46:29 Influenza, split virus, quadrivalent, preservative 7 completed Not Available [facility] 01/03/2023 05:46:29 COVID-19, mRNA, LNP-S, PF, 100 mcg/0.5mL dose or 50 mcg/0.25mL dose 2 completed Not Available [facility] 01/03/2023 05:46:29 SARS-COV-2 (COVID-19) vaccine, UNSPECIFIED 1 completed Not Available [facility] 01/03/2023 05:46:29 SARS-COV-2 (COVID-19) vaccine, UNSPECIFIED 1 completed Not Available [facility] 01/03/2023 05:46:30 COVID-19, mRNA, LNP-S, bivalent, PF, 30 mcg/0.3 mL dose 3 completed Not Available [facility] 01/03/2023 05:46:30 influenza, unspecified formulation 1 completed Not Available [facility] 01/03/2023 05:46:30 influenza, unspecified formulation 2 completed Not Available [facility] 01/03/2023 05:46:30 COVID-19, mRNA, LNP-S, PF, jaya-sucrose, 30 mcg/0.3 mL 4 completed MD [address], [place], [address], [facility] 02/02/2024 11:11:48 Influenza, split virus, trivalent, PF 4 completed MD [address], [place], [address], [facility] 02/02/2024 11:11:48 Influenza, split virus, quadrivalent, PF 3 completed MD [address], [place], [address], [facility] 01/31/2023 16:54:28 COVID-19, mRNA, LNP-S, PF, jaya-sucrose, 30 mcg/0.3 mL 3 completed Sheyla Mina RN [facility], [facility] 02/07/2023 09:09:44 Past Encounters Encounter ID Performer Location Encounter Start Date Encounter Closed Date Diagnosis/Indication Diagnosis SNOMED-CT Code Diagnosis ICD10 Code Diagnosis Note [id number] Sheyla Mina RN [facility] [address] [place] [address] 01/26/2024 08:05:25 01/26/2024 09:26:39 History of anemia - iron deficient 616482605 Z86.2 Essential hypertension 26599725 I10 [id number] CIELO NICHOLS MD [facility] [address] [place] [address] 02/02/2024 09:19:00 02/02/2024 10:16:45 Adult health examination 864739891 Z00.00 Here for annual exam.Discu ssed diet rich in fruits and vegetables , adequate fiber, healthy proteins such as nuts, beans, fish and poultry.Di scussed benefits of exercise including 30 minutes of aerobic exercise 5 days a week and 2 days of strength training per week.Discu ssed preventati ve recommenda tions. Screening mammography 24 409383 Z12.31 mammogram due June 2024, ordered. Active or passive immunization 477868616 Z23 Menorrhagia 515096747 N9 2.0 To [employer] GENERATION MANAGER to discuss IUD. Iron defic iency anemia 72671696 D50.9 Will check celiac screen today- I think we can hold on an EGD given her menorrhagi a- if IUD controls bleeding and remains anemic, and colo normal, would then consider EGD.Start QOD iron, watch for constipati on.repeat CBC and ferritin prior to next visit. Lesion of skin of face 3387947211 06 L98.9 left nasal ala, suspicious for BCCA Obesity 301721171 E66.9 Weight gain since last year. Discussed naltrexone -buproprio n and topiramate -phentermi ne- she prefers to try dietary changes- more protein, less carbs. Health Concerns Section Related Observation LastModified by Organization Detai ls LastModified Time None Recorded Concern Status LastModified by Organization Details LastModified Time None Recorded Payers Encounter Date Sequence Insurance Name Policy Number Policy Brandon Covered Member ID Brandon Member ID Guarantor Name 02/02/2024 1 [facility] (MEDICAID) Nilda Parish [id number] Nilda Parish Notes Date Note Type Note Provider Name and Address Organization Details Recorded Time 02/02/2024 text/html Here for Annual Exam.Interval history form was reviewed, including comprehensive ROS form.ROS negative throughout with the exception as noted below:c/o Rt ear pain on 01/30 and Lt ear pain 01/31. No cold sxs or fever. She has not had ear infections for 18 years, never had frequent. Slight nasal drip at night. no recent swimming.She will have mammogram next year. ANEMIA- recent labs with significant fall in her Hct from 38.3 in 2021 to 29.8, and ferritin only 5. Colonoscopy is scheduled for 02/08, I had my staff communicate with [facility] and they are aware of her drop in H/H, and I asked if they could do EGD at same time, to rule out gastritis and celiac disease. She did have a normal TTG back in 2016. She has noted some fatigue. Her menses have been heavy, though her most recent one was park aide. Prior to the December, she was having very heavy bleeding for 2-3 days, one day particularly heavy. She had a BTL. HTN- amlodipine, irbesartan- at home 120-136/75-90- usually lower. ulcerative colitis- saw GI 11/2024 and they suggested colonoscopy- which is scheduled for 02/08... MVR- due for ECHO 2024 GERD- famotidine acne- remains quite quiet. ROS: Denies Chest pain, SOB, BLACKMON or visual issues. Just one migraine headache in the last 2 month, migraine Excedrin and water seems to help. SH- is taking her on a surprise trip in the next month or two. Home with her own daughter and her grandson same age! CIELO NICHOLS MD [address], [place], [address], [facility]. 02/02/2024 11:14:33 OBGyn Episode No OBEpisode recorded.
--- OUTSIDE RECORDS SUMMARY | 2024-03-24 10:05 | XMS_ITS | Clinical Summary ---
Author Organization [place] [address] Care Team Providers Care Auto Machinist Name Role Phone Cielo Goncalves MD Primary Care Provider [phone] Allergies Active Allergy Reactions Criticality Noted Date [...] tablet 2 05/04/2021 Active vitamin 27 & [id number]-JY 60 mg iron-1 mg Tablet Take 1 [...] Next Due Covid-19 Monovalent (Moderna Spikevax) 12yrs+ (1418-0090) 07/16/2020,06/18/2020 Family History Medical History Relation Comments [...] 8:50 AM EST HIV SCREEN, 4TH GENERATION (MC/CGP/APD/NLH)PERF ORMABLE Routine 11/27/2020 11:01 AM EDT Supervision of [...] Aguilera MD CHEMISTRY ORDERABLES Performing Organization Address [facility]/ZIP Co de Phone Number [facility] [place] [place] [address] * Hepatitis C Antibody (11/27/2020 11:01 AM EDT) Hepatitis C Antibody Negative Negative [facility] Blood 11/27/2020 11:0 1 AM EDT 11/27/2020 11:22 AM EDT Narrative Resulting Agency Comment Spec In Lab Darline Martinez MD CHEMISTRY ORDERABL ES Performing Organization Address [facility] Co de Phone Number [facility] [place] [address] * HIV Screen, 4th Generation ([facility]/CGP/APD/NLH) (11/27/2020 11:01 AM EDT) HIV Ab/Ag Screen [...] CHEMISTRY ORDERABL ES [facility] [place] [address] from Last 3 Months or Most Recently Relevant to Health Maintenance Advance Directives * Attempt Cardiopulmonary Resuscitation - Inpatient (Latest Code Status on File) Date Activated Date Inactivated Comments 04/24/2021 11:40 PM 05/04/2021 8:50 PM Question Answer Comments Code Status decision made by: Patient Care Teams Auto Machinist Relationship Specialty Start Date End Date Cielo Goncalves MD [facility] [address] [place] [address] PCP - General 01/16/10
--- OUTSIDE RECORDS SUMMARY | 2024-03-24 10:05 | XMS_ITS | Continuity of Care Document ---
Author Organization [facility] Address [address] [place] [address] Assessment No assessment recorded. Plan of Treatment Reminders Order Date Submit Date Provider Last Modified By Organization Details Last Modified Time Details Appointments Nurse Visit 2024 08:40A M [facility] Nursing Staff Not available Not available Not available Follow Up 2024 11:00A M Cielo Nichols Not available Not available Not available Lab ferriti n, serum or plasma 2022 [facility] (Registration ), [address] [place] [address] [place], [address], 01/27/2024 14:23:26 CBC 2022 [facility] (Registration ), [address] [place] [address] [place], [address], 01/26/2024 16:02:35 BMP, serum or plasma 2022 [facility] (Registration ), [address] [place] [address] [place], [address], 01/27/2024 14:23:44 Referral None recorde d. Procedures None recorde d. Surgeries None recorde d. Imaging None recorde d. Medication Orders None recorde d. Patient TargetsNo targets recorded. Patient InstructionsNo instructions recorded. Reason for Referral None Reported. Problems Name Problem SNOMED Code Status Onset Date Resolution Date Notes Provider Name and Address Organization Details Recorded Time Prediabe sidney [id number] Completed 200701/31/2023 01/29/20 22 - Comments only - Cielo Nichols MD - Most recent labs WNL, repeat next year, strong FH of diabetes , doing a good job eating well and walking. Problem Code: R73.03; Problem Code Type: ICD-10; Removal Reason: A1C always normal, fasting sugars normal last few years. MD [address], [place], [address] , [facility] 3 13:20:23 Obesity 939601331 Active [address], [place], [address] , [facility] 4 15:33:05 Eczema 71980802 Active [address], [place], [address] , [facility] 4 15:32:39 [facility] hyperten ger 92403494 Active [address], [place], [address] , [facility] 3 13:14:38 Acne 66505591 Active [address], [place], [address] , [facility] 4 15:32:30 Adult health examinat ion Completed 201402/01/2024 Problem Code: Z00.00; Problem Code Type: ICD-10; MD [address], [place], [address] , [facility] 4 15:32:33 Impetigo 30133953 Completed 201401/23/2015 01/17/20 15 - Comments only - Cielo Nichols MD - Start Bactroba n 3 times daily to yellow crusty areas on face Problem Code: L01.00; Problem Code Type: ICD-10; Not Available [facility] 3 04:53:23 Fever 838813252 Completed 201504/21/2015 Problem Code: R50.9; Problem Code Type: ICD-10; Not Available [facility] 3 04:53:23 Nausea 032064155 Completed 201504/21/2015 04/05/19 16 - Comments only [...] Code Type: ICD-10; Not Available [facility] 3 04:53:23 Noninfec tious gastroen teritis 64140099 Completed 201604/22/2016 04/08/19 17 - Comments only - Cielo Nichols MD - Check stool cultures . Hold on antibiot ics. Return to clinic or present to emergenc y room if she develops severe abdomina l pain, or fevers. Not Available [facility] 3 04:53:23 Ulcerati ve colitis 66964442 [facility] [address], [facility] [address] , [facility] 4 15:33:55 Screenin g for malignan t neoplasm of breast Completed 201802/01/2024 Problem Code: Z12.39; Problem Code Type: ICD-10; MD [address], [facility] [address] , [facility] 4 15:33:16 Mitral valve regurgit ation 17897271 Active 2019 moderate 10/2019: due for repeat ECHO [address], [facility] [address] , [facility] 4 15:34:55 Localize d eruption of skin 811599821 Completed 201912/16/2019 09/21/19 20 - Comments only - Piper Nick Rio [employer] MECHANIC - No improvem ent with clotrileslie zole. Now located just to labia. No [...] Code Type: ICD-10; MD [address], [place], [address] , [facility] 4 15:33:27 Pregnanc y 37459054 Completed 202011/03/2020 10/21/19 21 - Comments only - Cielo Nichols MD - By LMP she is 6 weeks 6 days. High risk given HTN, CKD, age and colitis. [facility]erral s made to both [facility] and [facility] highway administrative engineer. OB ultrasou nd as soon as possible . Quantita tive HCG drawn today (recent TAB, would like baseline level in case she has any bleeding ) Problem Code: Z33.1; Problem Code Type: ICD-10; Not Available [facility] 3 04:53:25 Headache 81225509 Active [address], [place], [address] , [facility] 4 15:32:51 Gastroes ophageal reflux disease without esophagi tis 370857246 Active [address], [place], [address] , [facility] 4 15:32:47 Hyperlip idemia screenin g Completed 202107/16/2021 Problem Code: Z13.220; Problem Code Type: ICD-10; Not Available [facility] 3 04:53:25 Impaired fasting glycemia 278447120 Completed 200711/20/2022 Not Available [facility] 3 04:53:25 Pain of right knee joint 93024934745 4100 Completed 201709/01/2019 Problem Code: M25.561; Problem Code Type: ICD-10; Not Available [facility] 3 04:53:25 Streptoc occal sore throat 54499945 Completed 201404/05/2015 Problem Code: J02.0; Problem Code Type: ICD-10; Not Available [facility] 3 04:53:26 Melena 4129179 Completed 201605/15/2016 Problem Code: K92.1; Problem Code Type: ICD-10; Not Available [facility] 3 04:53:26 Abdomina l pain 40279316 Completed 201605/15/2016 Problem Code: R10.9; Problem Code Type: ICD-10; Not Available [facility] 3 04:53:26 Intraute rine contrace ptive device in situ 112018542 Completed 200909/01/2019 Problem Code: Z97.5; Problem Code Type: ICD-10; Not Available [facility] 3 04:53:26 Acute stress disorder 40545208 Completed 201809/01/2019 Problem Code: F43.0; Problem Code Type: ICD-10; Not Available [facility] 3 04:53:26 Bleeding from nose 992122760 Completed 202101/28/2022 Problem Code: R04.0; Problem Code Type: ICD-10; Not Available [facility] 3 04:53:26 Heart murmur 16783505 Completed 201911/20/2022 Problem Code: R01.1; Problem Code Type: ICD-10; Not Available [facility] 3 04:53:27 Miscarri age without complica tion 66098368 Completed 201903/13/2020 Problem Code: O03.9; Problem Code Type: ICD-10; Not Available [facility] 3 04:53:27 Hyperten sive disorder 35686109 Completed 200811/20/2022 Not Available [facility] 3 04:53:27 Disorder of kidney and/or ureter 898104580 Completed 201408/03/2015 Problem Code: N28.9; Problem Code Type: ICD-10; Not Available [facility] 3 04:53:28 Pleuriti c pain 5153593 Completed 201903/13/2020 Problem Code: R07.81; Problem Code Type: ICD-10; Not Available [facility] 3 04:53:28 History of nutritio nal disorder 089215305 Completed 200711/20/2022 03/24/19 20 - Comments only - Cielo Nichols MD - She has had a couple of blood sugars over 100, unclear if those were fasting. With next set of labs will get fasting labs includin g glucose and hemoglob in A1c to clarify whether she meets criteria of prediabe sidney. Not Available [facility] 3 04:53:28 Contact dermatit is 27001903 Completed 201810/20/2020 Problem Code: L25.9; Problem Code Type: ICD-10; Not Available [facility] 3 04:53:28 Iron deficien cy anemia 48465467 Completed 201601/23/2017 Problem Code: D50.9; Problem Code Type: ICD-10; Not Available [facility] 3 04:53:29 Hypokale andrew 24313389 Completed 201701/28/2022 Problem Code: E87.6; Problem Code Type: ICD-10; Not Available [facility] 3 04:53:29 History of anemia - iron deficien t 829018925 Active [address], [place], [address] , [facility] 3 13:11:56 Localize d eruption of skin 354841496 Completed 202202/01/2024 11/07/19 23 - Comments only [...] ICD-10; CIELO NICHOLS MD [address], [place], [address] , [facility] 4 15:33:27 Problem Notes None recorded. Procedures Surgical History Date Name Laterality Status Provider Name and Address Organization Details Recorded Time 1 Date of Last Pap Smear completed ELIZABETHANNA HOLCOMB [facility] 01/30/2023 10:54:42 9 Most Recent Mammogram completed ELIZABETHANNA HOLCOMB [facility] 01/30/2023 10:55:47 9 Date of Last Mammogram completed ELIZABETHANNA HOLCOMB [facility] 01/30/2023 10:56:56 7 Date of Last Colonoscopy completed ELIZABETHANNA HOLCOMB [facility] 01/30/2023 10:56:05 Imaging Results None [...] days. Please prescrib e generic brand GABE CANCHOLA 01/23 completed called in 7 Not Available [...] Time Tobacco Smoking Status Never Smoker ELIZABETH HOLCOMB, NIKOLAS null, [place] - [facility]. 01/30/2023 10:54:00 Would You Say That, [...] preservative free, adsorbed 8 completed Not Available [facility] 01/03/2023 05:46:29 Tdap 2 completed Not Available [facility] 01/03/2023 05:46:29 Tdap 8 completed Not Available [facility] 01/03/2023 05:46:29 Td(adult) unspecified formulation 4 completed Not Available [facility] 01/03/2023 05:46:29 Influenza, split virus, trivalent, preservative 5 completed Not Available [facility] 01/03/2023 05:46:29 Influenza, split virus, quadrivalent, PF 2 completed Not Available [facility] 01/03/2023 05:46:29 Influenza, split virus, quadrivalent, preservative 7 completed Not Available [facility] 01/03/2023 05:46:29 COVID-19, mRNA, LNP-S, PF, 100 mcg/0.5mL dose or 50 mcg/0.25mL dose 2 completed Not Available [facility] 01/03/2023 05:46:29 SARS-COV-2 (COVID-19) vaccine, UNSPECIFIED 1 completed Not Available [facility] 01/03/2023 05:46:29 SARS-COV-2 (COVID-19) vaccine, UNSPECIFIED 1 completed Not Available [facility] 01/03/2023 05:46:30 COVID-19, mRNA, LNP-S, bivalent, PF, 30 mcg/0.3 mL dose 3 completed Not Available [facility] 01/03/2023 05:46:30 influenza, unspecified formulation 1 completed Not Available [facility] 01/03/2023 05:46:30 influenza, unspecified formulation 2 completed Not Available [facility] 01/03/2023 05:46:30 COVID-19, mRNA, LNP-S, PF, jaya-sucrose, 30 mcg/0.3 mL 4 completed CIELO NICHOLS MD [address], [facility] [address], [facility] 02/02/2024 11:11:48 Influenza, split virus, trivalent, PF 4 completed MD [address], [facility] [address], [facility] 02/02/2024 11:11:48 Influenza, split virus, quadrivalent, PF 3 completed CIELO NICHOLS MD [address], [facility] [address], [facility] 01/31/2023 16:54:28 COVID-19, mRNA, LNP-S, PF, jaya-sucrose, 30 mcg/0.3 mL 3 completed Sheyla Mina RN [facility] 02/07/2023 09:09:44 Past Encounters Encounter ID Performer Location Encounter Start Date Encounter Closed Date Diagnosis/Indication Diagnosis SNOMED-CT Code Diagnosis ICD10 Code Diagnosis Note [id number] Sheyla Mina RN [facility] [address] [place] [address] 01/26/2024 08:05:25 01/26/2024 09:26:39 History of anemia - iron deficient [id number] Z86.2 Essential hypertension 74678154 I10 Health Concerns Section Related Observation LastModified by Organization Detai ls LastModified Time None Recorded Concern Status LastModified by Organization Details LastModified Time None Recorded Payers Encounter Date Sequence Insurance Name Policy Number Policy Brandon Covered Member ID Brandon Member ID Guarantor Name 01/26/2024 1 [facility] (MEDICAID) Nilda Parish [id number] Nilda Parish OBGyn Episode No OBEpisode recorded.
--- OUTSIDE RECORDS SUMMARY | 2024-03-24 10:06 | XMS_ITS | Encounter Summary ---
Author Organization [facility] Address [address] [place] [address] Care Team Providers Care Cloth Folder Machine Name Role Phone Unknown, Provider Primary Care Provider Tiffany garcia Encounter Details Date Type Department Care Team (Late st Contact Info) Description 02/10/2024 Lab Requisition [facility] Pathology & Laboratory Medicine - [facility] [address] [place] [address] Berto Jenkins MD [address] [place] [address] Ulcerative (chronic) pancolitis without complications (HCC-CMS); Iron deficiency anemia, unspecified Social History Tobacco Use Types Packs/Day Years [...] Priority Date/Time Associated Diagnosis Comments SURGICAL PATHOLOGY Today 02/09/2024 7: 42 EST Ulcerative (chronic) pancolitis without complications (HCC-CMS) Iron deficiency anemia, unspecified documented in this encounter Results * SURGICAL PATHOLOGY (02/09/2024 7:42 EST) Note to Patient The following pathology results have been interpreted by your pathologist and may be available to you before your health provider has had the opportunity to review them. Please allow time for your provider to receive these results and explore management options, if applicable. 02/12/2024 16:42 [facility] Final Diagnosis A. CECUM, BIOPSY: - Colonic mucosa with no significant histopathologic change. B. COLON, ASCENDING, BIOPSY: - Colonic mucosa with no significant histopathologic change. C. COLON, TRANSVERSE, BIOPSY: - Colonic mucosa with no significant histopathologic change. D. COLON, DESCENDING, BIOPSY: - Mild chronic inactive colitis. E. SIGMOID, BIOPSY: - Mild chronic inactive colitis. F. RECTUM, BIOPSY: - Mild chronic inactive proctitis. 02/12/2024 16:42 [facility] Diagnosis Comment The patient's history of inflammatory bowel disease is noted. All parts are negative for granulomas and dysplasia. The technical component of the specimen processing was performed at the Pathology Department, [address] [place] [address] (CLIA [id number]). The professional component of the specimen evaluation (slide review and issuing of the final diagnosis) was performed at [facility], [address] [place] [address] (CLIA License Number [id number]). 02/12/2024 16:42 [facility] Attestation By the signature below, the attending physician certifies that they have 1) personally conducted a gross and/or microscopic examination of the described specimen(s), and/or personally interpreted the results of laboratory testing of the described specimen(s), and 2) personally rendered or confirmed the above diagnosis. 02/12/2024 16:42 [facility] at 1642 Clinical History Ulcerative pancolitis; clinical diagnosis code: D50.9, K51.00 02/12/2024 16:42 [facility] Gross Description A. Received in formalin labelled with proper patient identification (initials R, B) and cecum is a single pale gu focally brown speckled tissue (0.6 x 0.2 x 0.1 cm). Submitted intact in A1. B. Received in formalin labelled with proper patient identification (initials R, B) and ascending colon is a single pale gu focally brown speckled tissue (0.6 x 0.2 x 0.1 cm). Submitted intact in B1. C. Received in formalin labelled with proper patient identification (initials R, B) and transverse colon is a single pale gu tissue (0.4 x 0.2 x 0.1 cm). Submitted intact in C1. D. Received in formalin labelled with proper patient identification (initials R, B) and descending colon is a single pale gu focally brown speckled tissue (0.5 x 0.2 x 0.1 cm). Submitted intact in D1. E. Received in formalin labelled with proper patient identification (initials R, B) and sigmoid colon a is a single pale gu focally gu speckled tissue (0.4 x 0.2 x 0.2 cm). Submitted intact in E1. F. Received in formalin labelled with proper patient identification (initials R, B) and rectum is a single pale gu focally gu speckled tissue (0.4 x 0.2 x 0.2 cm). Submitted intact in F1. Ingrid Brody 02/11/2024 8:53 02/12/2024 16:42 EST [facility] Performing Lab [facility] 16:42 EST [facility] Scanned Images 02/12/2024 16:42 EST [facility] Tissue SPECIMEN FROM RECTUM / Unknown 02/09/2024 7:42 EST 02/10/2024 22:28 EST Tissue specimen (specimen) COLON STRUCTURE / Unknown 02/09/2024 7:42 EST 02/10/2024 22:28 EST Tissue specimen (specimen) TRANSVERSE COLON STRUCTURE / Unknown 02/09/2024 7:42 EST 02/10/2024 22:28 EST Tissue specimen (specimen) DESCENDING COLON STRUCTURE / Unknown 02/09/2024 7:42 EST 02/10/2024 22:28 EST Tissue specimen (specimen) SIGMOID COLON STRUCTURE / Unknown 02/09/2024 7:42 EST 02/10/2024 22:28 EST Tissue specimen (specimen) SPECIMEN FROM RECTUM / Unknown 02/09/2024 7:42 EST 02/10/2024 22:28 EST us Berto Jenkins MD PATHOLOGY ORDERABLES Final Result [facility] [address] [place] [address] documented in this encounter Visit Diagnoses Diagnosis Ulcerative (chronic) pancolitis without complications ([facility]) Iron deficiency anemia, unspecified documented in this encounter Care Teams Cloth Folder Machine Relationship Specialty Start Date End Date Unknown, Provider, PCP - General 12/31/14 documented as of this encounter
--- OUTSIDE RECORDS SUMMARY | 2024-03-24 10:06 | XMS_ITS | Encounter Summary ---
Author Organization [facility] Address [address] [place] [address] Care Team Providers Care Mower Mechanic Name Role Phone Unknown, Provider Primary Care Provider Tiffany garcia Encounter Details Date Type Department Care Team (Late st Contact Info) Description 11/21/2020 Lab Requisition [facility] Pathology & Laboratory Medicine - [facility] [address] [place] [address] [place], [place] [id number] Encounter for other general examination Social History [...] types, PCR Negative Negative 12/01/2020 15:26 EDT [facility] Comment:No E6 or E7 mRNA is detected from HPV types 16,18,31,33,35,39,45,51,52,56,58,59,66, and 68 by manager business process mediated amplification. Papanicolaou smear specimen (specimen) CERVIX UTERI STRUCTURE / Unknown 11/20/2020 15:10 EDT 11/30/2020 15:38 EDT Leigha Roberson [facility] MICRO[facility]OLOGY - GENERAL ORDERABLES Final Result [facility] [address] [place] [address] * PAP TEST (11/20/2020 15:10 EDT) Specimens A. Cervix and/or Endocervix , ThinPrep Imaging System with Manual Evaluation 12/01/2020 15:26 [facility] Specimen Adequacy Satisfactory for Evaluation - transformation zone component present 12/01/2020 15:26 [facility] General Categorization Negative for intraepithelial lesion or malignancy 12/01/2020 15:26 [facility] Attestation . 12/01/2020 15:26 [facility] at 1526 Clinical History See below 12/02/19 15:26 [facility] HPV The result for the Human Papillomavirus (HPV) Detection-High Risk Types is Negative. No E6 or E7 mRNA is detected from HPV types 16,18,31,33,35,39 ,45,51,52,56,58,5 9,66, and 68 by manager business process mediated amplification.Brittanie ting was performed on specimen [id number] and was resulted on 12/01/2020 1515 EDT by KARAN, LAB INSTRUMENT RESULTS IN 12/01/2020 15:26 T [facility] Performing Lab [facility] 12/01/2020 15:26 [facility] Scanned Images 12/01/2020 15:26 T [facility] Papanicolaou smear specimen (specimen) CERVIX UTERI STRUCTURE / Unknown 11/20/2020 15:10 EDT 11/21/2020 13:44 EDT Leigha Roberson [facility] PATHOLOGY ORDERABLES F inal Result [facility] [address] [place] [address] documented in this encounter Visit Diagnoses Diagnosis Encounter for other general examination documented in this encounter Care Teams Mower Mechanic Relationship Specialty Start Date End Date Unknown, Provider, PCP - General 12/31/14 documented as of this encounter
--- OUTSIDE RECORDS SUMMARY | 2024-03-24 10:06 | XMS_ITS | Encounter Summary ---
Author Organization [facility] Address [address] [place] [address] Care Team Providers Care Bmx Rider Name Role Phone Unavailable Primary Care Provider Unavailabl e Encounter Details Date Type Department Care Team (Late st Contact Info) Description 01/25/2009 Orders Only [facility] - [facility] [address] [place] [phone] Jaymie Chopra, CHEMICAL PREPARER Social History Tobacco Use Types Packs/Day Years [...] BLES Final Result [facility] [address] [place] [address] * CYTOPATHOLOGY (01/25/2009 0:00 EST) Pathology Report: CYTOPATHOLOGY REPORT ? Reports generated via electronic interface contain original data; ? however they are lacking the format of the original report. ? Caution should be taken when reading/interpreti ng unformatted reports. ? Name: ? EDWAR DOMINGUEZ ? Accession #: ? [id number] ? : ? 1975 (Age: 34) ??F ?Collect Date: ? 01/25/2009 ? Location: ? [facility] ? Receive Date: ? 01/26/2009 ? Provider: ?JAYMIE M AYAN CHEMICAL PREPARER ? Copy to: ? Specimen/Source: ?Pap Test, [...] Final Re sult [facility] [address] [place] [address] documented in this encounter Visit Diagnoses Not on filedocumented in this encounter
--- OUTSIDE RECORDS SUMMARY | 2024-03-24 10:06 | XMS_ITS | Encounter Summary ---
Author Organization [facility] Address [address] [place] [address] Care Team Providers Care Weaving Instructor Name Role Phone Unknown, Provider Primary Care Provider Tiffany garcia Encounter Details Date Type Department Care Team (Late st Contact Info) Description 11/20/2020 Lab Requisition [facility] Pathology & Laboratory Medicine - [facility] [address] [place], [place] [id number] Outr Resulting Lab, Provider Social History Tobacco [...] Surface Ag Negative Negative 11/21/2020 10:20 EDT [facility] Blood VENOUS BLOOD / Unknown 11/20/2020 15:33 EDT 11/20/2020 20:58 EDT us Provider Outr Resulting Lab CHEMISTRY & BLOOD GA S ORDERABLES Final Result Performing Organization Address City/[facility]/ZIP Co de Phone Number [facility] [address] [place] [address] * HEPATITIS C AB W REFLEX TO HCV RNA BY PCR (11/20/2020 15:33 EDT) Hep C Antibody Negative Negative 11/21/2020 12:27 EDT [facility] Blood VENOUS BLOOD / Unknown 11/20/2020 15:33 EDT 11/20/2020 20:58 EDT us Provider Outr Resulting Lab CHEMISTRY & BLOOD GA S ORDERABLES Final Result Performing Organization Address [facility] Co de Phone Number [facility] [address] [place] [address] documented in this encounter Visit Diagnoses Not on filedocumented in this encounter Care Teams Weaving Instructor Relationship Specialty Start Date End Date Unknown, Provider, PCP - General 12/31/14 documented as of this encounter
--- OUTSIDE RECORDS SUMMARY | 2024-03-24 10:06 | XMS_ITS | Encounter Summary ---
Author Organization [facility] Address [address] [place] [address] Care Team Providers Care Rn Field Case Manager Name Role Phone Unknown, Provider Primary Care Provider Tiffany ilable Encounter Details Date Type Department Care Team (Latest Contact Info) Description 11/28/2016 8:59 EDT - 11/28/2016 23:59 EDT Hospital Encounter [address] [address] Unknown, Provider, Discharge Disposition: Home or Self [...] Code Departure Means Destination Home or Self Retirement documented in this encounter Plan of Treatment Not on file documented as of this encounter Visit Diagnoses Not on filedocumented in this encounter Care Teams Rn Field Case Manager Relationship Specialty Start Date End Date Unknown, Provider, PCP - General 12/31/14 documented as of this encounter
--- OUTSIDE RECORDS SUMMARY | 2024-03-24 10:06 | XMS_ITS | Clinical Summary ---
Author Organization [facility] Address [address] [place] [address] Care Team Providers Care Press Cleaner Name Role Phone Unknown, Provider Primary Care Provider Tiffany garcia Encounters Date Type Department Care Team Description 02/12/2024 Lab Requisition [facility] Pathology & Laboratory [address] [address] Debo Tamayo MD Encounter for other general examination 02/10/2024 Lab Requisition [facility] Pathology Laboratory [address] [address] Berto Jenkins MD Ulcerative (chronic) pancolitis without complications ([facility]); Iron deficiency anemia, unspecified 02/02/2024 Lab Requisition [facility] Pathology Laboratory [address] [address] Outr Resulting Lab, Provider from Last 3 Months Social History Tobacco Use Types Packs/Day Years [...] Date/Time Associated Diagnosis Comments SURGICAL PATHOLOGY Today 02/11/2024 9: 38 EST Encounter for other general examination SURGICAL PATHOLOGY Today 02/09/2024 7: 42 EST Ulcerative (chronic) 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 Note to Patient The following pathology results have been interpreted by your pathologist and may be available to you before your health provider has had the opportunity to review them. Please allow time for your provider to receive these results and explore management options, if applicable. 02/16/2024 12:21 [facility] Final Diagnosis A. ENDOMETRIUM, BIOPSY: - Secretory endometrium - Fragments suggestive of benign endometrial polyp. 02/16/2024 12:21 [facility] Attestation There was significant resident/fellow involvement in the diagnostic evaluation of this case. By the signature below, the attending physician certifies that they have personally conducted a gross and/or microscopic examination of the described specimens and rendered or confirmed the above diagnosis. 02/16/2024 12:21 [facility] at 1221 Clinical History Menorrhagia 02/16/2024 12:21 [facility] Gross Description A. Received in formalin labelled with proper patient identification (initials R, B) and endometrium is an aggregate of rubbery gu-wynn and dark red-brown tissue (3.0 x 1.7 x 0.5 cm). Entirely submitted in A1-A2. Ingrid Brody 02/12/2024 9:48 02/16/2024 12:21 [facility] Resident/Danny w: Nilda Galindo MD 02/16/2024 12:21 [facility] Performing Lab [facility] 02/16/2024 12:21 EST [facility] Scanned Images 02/16/2024 12:21 EST [facility] Tissue ENDOMETRIAL STRUCTURE / Unknown 02/11/2024 9:38 EST 02/12/2024 7:00 EST us Debo Tamayo MD PATHOLOGY ORDERABLES Final R esult [facility] [address] [place] [address] * IGA (02/02/2024 10:16 EST) IgA 374 85 - 499 mg/dL 02/03/2024 10:13 EST [facility] Blood VENOUS BLOOD / Unknown 02/02/2024 10:16 EST 02/02/2024 22:09 EST us Provider Outr Resulting Lab CHEMISTRY & BLOOD GA S ORDERABLES Final Result Performing Organization Address City/[facility] [address]/ZIP Co de Phone Number [facility] [address] [place] [address] * HEPATITIS C AB W REFLEX TO HCV RNA BY PCR (11/20/2020 15:33 EDT) Hep C Antibody Negative Negative 11/21/2020 12:27 EDT [facility] Blood VENOUS BLOOD / Unknown 11/20/2020 15:33 EDT 11/20/2020 20:58 EDT us Provider Outr Resulting Lab CHEMISTRY & BLOOD GA S ORDERABLES Final Result [facility] [address] [place] [address] from Last 3 Months or Most Recently Relevant [place] [address] MEDICAID [place] Care Teams Press Cleaner Relationship Specialty Start Date End Date Unknown, Provider, PCP - General 12/31/14
--- OUTSIDE RECORDS SUMMARY | 2024-03-24 10:06 | XMS_ITS | Encounter Summary ---
[place] [address] Care Team Providers Care Rear Load Truck Driver Name Role Phone Cielo Goncalves MD Primary Care Provider [phone] Reason for Referral * Diagnostic Test (Routine) - Closed Specialty Diagnoses / Procedures Referred By Contac t Referred To Contact Obstetrics and Gynecology Diagnoses Supervision of high risk in first trimester Multigravida of advanced maternal age in first trimester Procedures Spinal Muscular Atrophy Darline García MD [facility] OBSTETRICS [place] [address] [facility] Eyeglass Frame Truer [address] [place] [phone] Referral ID Status Reason Start Date Expiration Date Visits Re quested Visits Authorized [id number] Closed 11/16/2020 11/16/2021 1 1 * Diagnostic Test (Routine) - Closed Specialty Diagnoses / Procedures Referred By Contac t Referred To Contact Obstetrics and Gynecology Diagnoses Supervision of high risk in first trimester Multigravida of advanced maternal age in first trimester Procedures CF Carrier Darline García MD [facility] OBSTETRICS [place] [address] [facility] [employer] [address] [place] [phone] Referral ID Status Reason Start Date Expiration Date Visits Re quested Visits Authorized [id number] Closed 11/16/2020 11/16/2021 1 1 Reason for Visit * Reason Comments Initial Visit * Consultation (Urgent) - Closed Specialty Diagnoses / Procedures Referred By Contac t Referred To Contact Obstetrics and Gynecology Diagnoses state, incidental Chronic kidney disease, stage 3a Essential (primary) hypertension Prediabetes 45 YR OLD WITH HIGH RISK Cielo Goncalves MD [facility] [address] [place] [address] [facility] [employer] [address] [place] [address] Referral ID Status Reason Start Date Expiration Date V isits Requested Visits Authorized [id number] Closed Consult, [facility] PCP Updated and/or Approved 10/20/2020 04/22/2021 6 6 Encounter Details Date Type Department Care Team (Late st Contact Info) Description 11/16/2020 10:30 AM EDT Initial Obstetrics [place] [address] Darline García MD [facility] DR OBSTETRICS [place] [address] GA: 10w5d Social History Tobacco Use Types [...] who have questions, please contact the health career information specialist that requested your imaging first. ?Gus Parikh, Staff Physician Electronically Signed Final Report ?? 02/06/2021 01:07 pm Narrative 02/06/2021 1:08 PM EST OBSTETRICS REPORT ?(Signed Final 02/06/2021 01:07 pm) PATIENT INFO: ID #: ? [id number] ?: ??[birth year] (46 yrs)(F) Name: ? EDWAR DOMINGUEZ ? Visit Date: 02/06/2021 11:42 am PERFORMED BY: Performed By: ? Jaylene Omalley RDMS Attending: ?Jl RIVERA, Gus Greer Referred By: ?DARLINE GARCÍA Location: ? [place] SERVICE(S) PROVIDED: [facility] - Detailed Morphology - [id number] ? [id number] INDICATIONS: 22 weeks gestation of ?Z3A.22 morphology [...] Arch: ? Visualized SVC: ? Visualized Cardiac Madison: ?Visualized Diaphragm: ? Visualized 3 Vessel View: [...] 02/06/2021 01:07 pm) PATIENT INFO: ID #: [id number] : [birth year] (46 yrs)(F) Name: EDWAR DOMINGUEZ Visit Date: 02/06/2021 11:42 am PERFORMED BY: Performed By: Jaylene Omalley RDMS Attending: Gus Parikh MD Referred By: DARLINE GARCÍA Location: [place] SERVICE(S) PROVIDED: [facility] - Detailed Morphology - [id number] INDICATIONS: 22 weeks gestation of Z3A.22 morphology [...] Visualized Ductal Arch: Visualized SVC: Visualized Cardiac Madison: Visualized Diaphragm: Visualized 3 Vessel View: Visualized [...] who have questions, please contact the health career information specialist that requested your imaging first. Gus Parikh, Staff Physician Electronically Signed Final Report 02/06/2021 01:07 pm Darline García MD [facility] US OB ORDERABL ES * Protein/Creatinine Ratio, urine (11/27/2020 11:11 AM EDT) Creatinine, Urine 32 mg/dL [facility] Protein, Urine <6 0 - 12 mg/dL [facility] Protein / Creatinine Ratio, Urine <0.2 ratio [facility] Urine 11/27/2020 11:1 1 AM EDT 11/27/2020 11:24 AM EDT Narrative Resulting Agency Comment Spec In Lab Darline García MD URINE ORDERABLES [facility] [place] [address] * Spinal Muscular Atrophy (11/27/2020 11:01 AM [...] Risk if 3 Copies SMN1 (1:3,500) Ashkenazi Yarsanism: The carrier detection (90%); Carrier Risk (1:41); [...] Genomics and Advanced Technology (CGAT) Laboratory at [facility]. It has not been cleared or approved by the FDA. The laboratory is regulated under CLIA as qualified to perform high-complexity testing. This test is used for clinical purposes. It should not be regarded as investigational or for research. [facility] Comment: [VERIFIED DATE]12.01.20 Verified By:Jeremi PhD, Simon Claros Director, Molecular Pathology (Electronic Signature) Blood 11/27/2020 11:0 1 AM EDT 11/27/2020 12:51 PM EDT Narrative Resulting Agency Comment Spec In Lab Darline García MD MOLECULAR ORDERABL ES [facility] [place] [address] * CF Carrier (11/27/2020 11:01 AM EDT) CF Carrier CFTR Gene Analysis: [employer] Cystic Fibrosis 139-Variant Assay INDICATION FOR STUDY: [...] the 23 CF-causing variants recommended by the [employer]. This [...] Carrier risk after a negative result Ashkenazi Yarsanism: ??95.44%; ??23.8; ?? White: ??94.2%; ??25; ??415 [...] conditional reporting of three benign variants when p.M039wwq is homozygous. METHODS: Genomic DNA was extracted from the submitted peripheral blood specimen using the [employer] Mode1 BioRobot. The CFTR gene was tested for the presence of the following variants by next-generation sequencing using the [employer] Cystic Fibrosis 139-Variant Assay ([place], [place], [place]); G85E (c.254G>A)*, R117H (c.350G>A)*, 621+1G>T (c.489+1G>T)*, 711+1G>T (c.579+1G>T)*, R553X (c.1657C>T)*, B9728W (c.3484C>T)*, 3659delC (c.3528delC)*, 3849+10kbC>T (c.3717+47552D>T)* , Z6852Z (c.3846G>A)*, J5228B (c.3909C>G)*, R347P (c.1040G>C)*, A455E (c.1364C>A)*, P341mzh (c.1519_ 1521delATC)*, G761cgs (c.1521_ 1523delCTT)*, 1717-1G>A (c.1585-1G>A)*, R560T (c.1679G>C)*, 1898+1G>A (c.1766+1G>A)*, 2184delA (c.2052delA)*, 2789+5G>A (c.2657+5G>A)*, G542X (c.1624G>T)*, R334W (c.1000C>T)*, G551D (c.1652G>A)*, 3120+1G>A (c.2988+1G>A)*, M1V (c.1A>G)?, CFTR dele2,3 (c.54-5940_273+102 33gdk87cz), ??Q39X (c.115C>T), ?E60X (c.178G>T)?, P67L (c.200C>T), R75X (c.223C>T)?, 394delTT (c.262_263delTT)?, 405+1 G>A (c.273+1G>A), 406-1G>A (c.274-1G>A), E92X (c.274G>T), E92K (c.274G>A), Q98X (c.292C>T), 457TAT>G (c.325_327delTATin sG), D110H (c.328G>C), R117C (c.349C>T), Y122X (c.366T>A), 574delA (c.442delA), 663delT (c.531delT), G178R (c.532G>A), 711+3A>G (c.579+3A>G), 711+5 G>A (c.579+5G>A), 712-1 G>T (c.580-1G>T), H199Y (c.595C>T), P205S (c.613C>T), L206W (c.617T>G), Q220X (c.658C>T), T338I (c.1013C>T), 3272-26A>G (c.3140-26A>G), A6441P (c.3194T>C), Z4997M (c.3196C>T), B9761B (c.3197G>A), X4075V (c.3230T>C), F9021H (c.3266G>A), F0455G(C>A) (c.3276C>A), I0421F(C>G) (c.3276C>G), T4844N (c.3302T>A), A1635C (c.3310G>T), I0450U (c.3472C>T), A4687R (c.3587C>G), G0747Q (c.3611G>A), U2998U (c.3612G>A), 3791delC (c.3659delC), B7116G (c.3731G>A), 3876delA (c.3744delA), S0624E (c.3752G>A), 3905insT (c.3773_3774insT), 4005+1G>A (c.3873+1G>A), 4016insT (c.3884_3885insT), J2975E (c.3937C>T), 4209TGTT>AA (c.4077_ 4080delTGTTinsAA), UBLNlkvj54,23 (c.3964-78_ 4242+577del), 4382delA (c.4251delA), S341P (c.1021T>C), 1154insTC (c.1022_1023insTC) , R347H (c.1040G>A), R352Q (c.1055G>A), 1213delT (c.1081delT), 1248+1G>A (c.1116+1G>A), 1259insA (c.1127_1128insA), W401X (c.1202G>A), W401X (c.1203G>A), 1341+1G>A (c.1209+1G>A), 4943pej8 (c.1329_ 1330insAGAT), 1525-1G>A (c.1393-1G>A), S466X (C>A) (c.1397C>A), [...] (c.2583delT), Q890X (c.2668C>T), L927P (c.2780T>C), S945L (c.2834C>T), 09oxa60 (c.720_ 741delAGGGAGAATGAT GATGAAGTAC), 1078delT (c.948delT), G330X (c.988G>T), I336K (c.1007T>A), S549R (c.1645A>C), 3007delG (c.2875delG), S549N (c.1646G>A), G970R (c.2908G>C), S549R (c.1647T>G), 3120G>A (c.2988G>A), Q552X (c.1654C>T), 3121-1G>A (c.2989-1G>A) Reflex reporting with homozygous p.X505vrm or p.W498jhh: I506V (c.1516A>G), I507V (c.1519A>G), F508C (c.1523T>G) Reflex [...] variants. The conditionally reported variants in the [employer] Cystic Fibrosis 139-Variant assay consist of the polyTG/polyT region (which is reported when the R117H variant is identified) and benign variants I506V, I507V, and U869W99 (reported when a homozygous L431rqg or B491hot are identified) 4. The assay cannot determine [...] Genomics and Advanced Technology (CGAT) Laboratory at [facility]. REFERENCES: 1. ACOG/ACMG. Preconception and carrier screening for cystic fibrosis. 2001, pp.1-31. 2. Jaydon I, Angela L, Valerio S, Alysa M, Alexandra A, Cierra Hurst. The Spectrum of CFTR Variants in Nonwhite Cystic Fibrosis Patients: Implications for Molecular Diagnostic Testing. J Mol Diagn. 2016 Feb;18(1):39-50. [PMID: 89064192] 3. ACMG, Technical Standards and Guidelines for CFTR Mutation Testing, 2008 Edition (Accessed April 2018) https://www.acmg.n et/docs/CFTR_Mutat ion_Testing_2010.p [facility] Comment: [VERIFIED DATE]12.01.20 Verified By:Jeremi Hughes, Simon Claros Director, Molecular Pathology (Electronic Signature) Blood 11/27/2020 11:0 1 AM EDT 11/27/2020 12:51 PM EDT Narrative Resulting Agency Comment Spec In Lab Darline García MD MOLECULAR ORDERABL ES Performing Organization Address City/[facility] Co de Phone Number [facility] [place] [address] * Panorama Screen (11/27/2020 11:01 AM EDT) Panorama Screen See Scan Report [facility] Comment:Test performed by Aylin zuñiga, [address] [place] [address], [address] [address] Blood 11/27/2020 11:0 1 AM EDT 11/27/2020 12:16 PM EDT Narrative Resulting Agency Comment Spec In Lab Darline García MD LAB SEND OUT ORDER MITRA Performing Organization Address [facility] Co de Phone Number [facility] [place] [address] * Aspartate Aminotransferase (11/27/2020 11:01 AM EDT) Aspartate Aminotransferase 15 0 - 30 unit/L [facility] Blood 11/27/2020 11:0 1 AM EDT 11/27/2020 11:22 AM EDT Narrative Resulting Agency Comment Spec In Lab Darline García MD CHEMISTRY ORDERABL ES Performing Organization Address [facility] Co de Phone Number [facility] [place] [address] * Creatinine (11/27/2020 11:01 AM EDT) Creatinine 0.72 0.70 - 1.20 mg/dL [facility] Est Glomerular Filtration Rate 101 >=60 mL/min/1. 73 m?? [facility] Comment: This patient? s estimated [...] MD CHEMISTRY ORDERABL ES Performing Organization Address [facility] Co de Phone Number [facility] [place] [address] * Hepatitis C Antibody (11/27/2020 11:01 AM EDT) Hepatitis C Antibody Negative Negative [facility] Blood 11/27/2020 11:0 1 AM EDT 11/27/2020 11:22 AM EDT Narrative Resulting Agency Comment Spec In Lab Darline García MD CHEMISTRY ORDERABL ES Performing Organization Address [facility] Co de Phone Number [facility] [place] [address] * Varicella zoster Antibody, IgG (11/27/2020 11:01 AM EDT) Varicella Zoster Antibody IgG Pos [facility] Blood 11/27/2020 11:0 1 AM EDT 11/27/2020 1:57 PM EDT Narrative Resulting Agency Comment Spec In Lab Darline García MD IMMUNOLOGY ORDERAB LES Performing Organization Address [facility] de Phone Number [facility] [place] [address] * GC/Chlamydia ([facility]/CGP/APD/[facility]H) Urine (11/16/2020 10:30 AM EDT) GC Gene Amp Negative Negative [facility] Comment: The only FDA approved specimen types for this assay are cervical, vaginal, urethral and urine. Non-FDA approved sources are eye, throat and rectal and have been internally validated. GC Source Urine [facility] Chlamydia Gene Amp Negative Negative [facility] Comment: The only FDA approved specimen types for this assay are cervical, vaginal, urethral and urine. Non-FDA approved sources are eye, throat and rectal and have been internally validated. Chlm Source Urine [facility] Urine 11/16/2020 10:3 0 AM EDT 11/16/2020 3:13 PM EDT Narrative Resulting Agency Comment Spec In Lab Darline García MD MICROBIOLOGY - GEN ERAL ORDERABLES Performing Organization Address City/[facility]/ZIP Co de Phone Number [facility] [place] [address] * (ABNORMAL) Urine culture Clean Catch Urine (11/16/2020 10:30 AM EDT) Urine Culture 10,000-49,000 cfu/ml mixed mucosal garrett Note: Culture shows multiple bacterial species suggesting mucosal contamination. If symptoms continue to indicate urinary tract infection, submit a new specimen. (A) [facility] Clean Catch Urine 11/16/2020 10:30 AM EDT 11/16/2020 3:11 PM EDT Narrative Resulting Agency Comment Spec In Lab Darline García MD MICROBIOLOGY - GEN ERAL ORDERABLES [facility] [place] [address] * (ABNORMAL) POCT urine dipstick (11/16/2020) POC Sp Wister 1.0(A) 1.002 - 1.030 POC pH, UA [...] trimester documented in this encounter Care Teams Rear Load Truck Driver Relationship Specialty Start Date End Date Cielo Goncalves MD [address] [place] [address] [address] [place] [address] PCP - General 01/16/10 documented as of this encounter
--- OUTSIDE RECORDS SUMMARY | 2024-03-24 10:06 | XMS_ITS | Encounter Summary ---
Author Organization [facility] Address [address] [place] [address] Care Team Providers Care Sewing Pattern Layout Technician Name Role Phone Unknown, Provider Primary Care Provider Tiffany garcia Encounter Details Date Type Department Care Team (Late st Contact Info) Description 02/12/2024 Lab Requisition [facility] Pathology & Laboratory Medicine - [facility] [address] [place] [address] Debo Tamayo MD [address] [place] [address] [place] [address] Encounter for other general examination Social History [...] 38 EST Encounter for other general examination documented in this encounter Results * SURGICAL PATHOLOGY (02/11/2024 9:38 EST) Note to Patient The following pathology results have been interpreted by your pathologist and may be available to you before your health provider has had the opportunity to review them. Please allow time for your provider to receive these results and explore management options, if applicable. 02/16/2024 12:21 EST [facility] Final Diagnosis A. ENDOMETRIUM, BIOPSY: - Secretory endometrium - Fragments suggestive of benign endometrial polyp. 02/16/2024 12:21 [facility] Attestation There was significant resident/fellow involvement in the diagnostic evaluation of this case. By the signature below, the attending physician certifies that they have personally conducted a gross and/or microscopic examination of the described specimens and rendered or confirmed the above diagnosis. 02/16/2024 12:21 [facility] at 1221 Clinical History Menorrhagia 02/16/2024 12:21 [facility] Gross Description A. Received in formalin labelled with proper patient identification (initials R, B) and endometrium is an aggregate of rubbery gu-wynn and dark red-brown tissue (3.0 x 1.7 x 0.5 cm). Entirely submitted in A1-A2. Ingrid Brody 02/12/2024 9:48 02/16/2024 12:21 [facility] Resident/Danny w: Nilda Galindo MD 02/16/2024 12:21 [facility] Performing Lab [facility] 02/16/2024 12:21 [facility] Scanned Images 02/16/2024 12:21 [facility] Tissue ENDOMETRIAL STRUCTURE / Unknown 02/11/2024 9:38 EST 02/12/2024 7:00 EST us Debo Tamayo MD PATHOLOGY ORDERABLES Final R esult [facility] [address] [place], [place] [id number] documented in this encounter Visit Diagnoses Diagnosis Encounter for other general examination documented in this encounter Care Teams Sewing Pattern Layout Technician Relationship Specialty Start Date End Date Unknown, Provider, PCP - General 12/31/14 documented as of this encounter
--- OUTSIDE RECORDS SUMMARY | 2024-03-24 10:06 | XMS_ITS | Encounter Summary ---
Author Organization [facility] Address [address] [place] [address] Care Team Providers Care Medical Equipment Technician Name Role Phone Unknown, Provider Primary Care Provider Tiffany garcia Encounter Details Date Type Department Care Team (Late st Contact Info) Description 11/20/2020 Lab Requisition [facility] Pathology & Laboratory Medicine - [facility] [address], [place] [id number] Outr Resulting Lab, Provider Social History Tobacco [...] Ab Positive See Note 11/21/2020 10:09 EDT [facility] Comment:Presence of detectab le Varicella Zoster virus IgG antibodies. Blood VENOUS BLOOD / Unknown 11/20/2020 15:33 EDT 11/20/2020 20:58 EDT us Provider Outr Resulting Lab IMMUNOLOGY AND SEROL OGY ORDERABLES Final Result Performing Organization Address City/[facility]/ZIP Co de Phone Number [facility] [address] [place] [address] * RUBELLA IGG ANTIBODY (11/20/2020 15:33 EDT) Rubella IgG Ab Positive See Note 11/21/2020 10:12 EDT [facility] Comment:Positive for IgG ant ibodies to Rubella virus. Blood VENOUS BLOOD / Unknown 11/20/2020 15:33 EDT 11/20/2020 20:58 EDT us Provider Outr Resulting Lab CHEMISTRY & BLOOD GA S ORDERABLES Final Result Performing Organization Address [facility] Co de Phone Number [facility] [address] [place] [address] documented in this encounter Visit Diagnoses Not on filedocumented in this encounter Care Teams Medical Equipment Technician Relationship Specialty Start Date End Date Unknown, Provider, PCP - General 12/31/14 documented as of this encounter
--- OUTSIDE RECORDS SUMMARY | 2024-03-24 10:06 | XMS_ITS | Encounter Summary ---
Author Organization [facility] Address [address] [place] [address] Care Team Providers Care Clinical Safety Manager Name Role Phone Unknown, Provider Primary Care Provider Tiffany garcia Encounter Details Date Type Department Care Team (Late st Contact Info) Description 02/02/2024 Lab Requisition [facility] Pathology & Laboratory Medicine - [address] [address] Outr Resulting Lab, Provider Social History Tobacco [...] Procedure Name Priority Date/Time Associated Diagnosis Comments IGA Routine 02/02/2024 10:16 EST documented in this encounter Results * IGA (02/02/2024 10:16 EST) IgA 374 85 - 499 mg/dL 02/03/2024 10:13 EST [facility] Blood VENOUS BLOOD / Unknown 02/02/2024 10:16 EST 02/02/2024 22:09 EST us Provider Outr Resulting Lab CHEMISTRY & BLOOD GA S ORDERABLES Final Result [facility] [address] [place], [place] [phone] documented in this encounter Visit Diagnoses Not on filedocumented in this encounter Care Teams Clinical Safety Manager Relationship Specialty Start Date End Date Unknown, Provider, PCP - General 12/31/14 documented as of this encounter
--- OUTSIDE RECORDS SUMMARY | 2024-03-24 10:06 | XMS_ITS | Encounter Summary ---
Author Organization [facility] Address [address] [place] [address] Care Team Providers Care Photographic Equipment Technician Name Role Phone Unavailable Primary Care Provider Unavailabl e Encounter Details Date Type Department Care Team (Late st Contact Info) Description 11/14/2006 Results Only [facility] conversion [address] [place] [address] Cielo Nichols MD [address] [address] Social History Tobacco Use Types [...] ? EDWAR DOMINGUEZ ? Accession #: ? [id number] : ? 1975 (Age: 31) ??F ?Collect Date: ? 11/14/2006 Location: ? [facility] ? Receive Date: ? 11/17/2006 Provider: ?CIELO NICHOLS MD Copy to: ? Specimen/Source: ?ThinPrep Pap Test, Cervix/Endocervix, processed on [facility] ThinPrep Imaging System, with manual evaluation Last [...] Final Resul t [facility] [address] [place] [address] documented in this encounter Visit Diagnoses Not on filedocumented in this encounter
--- OUTSIDE RECORDS SUMMARY | 2024-03-24 10:06 | XMS_ITS | Encounter Summary ---
Author Organization [facility] Address [address] [place] [address] Care Team Providers Care Life Specialist Name Role Phone Unknown, Provider Primary Care Provider Tiffany garcia Encounter Details Date Type Department Care Team (Late st Contact Info) Description 11/21/2020 Lab Requisition [facility] Pathology & Laboratory Medicine - [facility] [address] [place], [place] [phone] Outr Resulting Lab, Provider Social History Tobacco [...] gonorrhoeae Result Negative Negative 11/22/2020 14:54 EDT [facility] Chlamydia trachomatis Result Negative Negative 11/22/2020 14:54 EDT [facility] Swab ENTIRE ENDOCERVIX / Unknown 11/20/2020 15:10 EDT 11/21/2020 19:50 EDT us Provider Outr Resulting Lab MICROBIOLOGY - GENER AL ORDERABLES Final Result [facility] [address] [place] [address] documented in this encounter Visit Diagnoses Not on filedocumented in this encounter Care Teams Life Specialist Relationship Specialty Start Date End Date Unknown, Provider, PCP - General 12/31/14 documented as of this encounter
--- OUTSIDE RECORDS SUMMARY | 2024-03-24 10:06 | XMS_ITS | Encounter Summary ---
Author Organization [facility] Address [address] [place] [address] Care Team Providers Care Jute Bag Cutting Machine Operator Name Role Phone Unknown, Provider Primary Care Provider Tiffany garcia Encounter Details Date Type Department Care Team (Late st Contact Info) Description 09/22/2019 Lab Requisition [facility] Pathology & Laboratory Medicine - [facility] [address] [place], [place] [id number] Outr Resulting Lab, Provider Social History Tobacco [...] ID No fungi isolated 10/20/2019 9:26 EDT [facility] Fungal Smear No Fungi Seen 10/20/2019 9:26 EDT [facility] Swab ENTIRE HAIR / Unknown 09/21/2019 9:30 EDT 09/22/2019 18:58 EDT us Provider Outr Resulting Lab MICROBIOLOGY - GENER AL ORDERABLES Final Result [facility] [address] [place] [address] documented in this encounter Visit Diagnoses Not on filedocumented in this encounter Care Teams Jute Bag Cutting Machine Operator Relationship Specialty Start Date End Date Unknown, Provider, PCP - General 12/31/14 documented as of this encounter
--- OUTSIDE RECORDS SUMMARY | 2024-03-24 10:06 | XMS_ITS | Encounter Summary ---
[place] [address] Care Team Providers Care Geometry Teacher Name Role Phone Cielo Goncalves MD Primary Care Provider Reason for Visit * Auth/Cert Specialty Diagnoses / Procedures Referred By Contac t Referred To Contact Diagnoses Preeclampsia, severe Preeclampsia, severe Procedures C SECTION DELIVERY Referral ID Status Reason Start Date Expiration Date Visits Re quested Visits Authorized [id number] 1 1 Encounter Details Date Type Department Care Team (Late st Contact Info) Description 04/29/2021 9:15 AM EST [place] [address] Arianna Ramirez MD [facility] [place] [address] Becky Fritz MD [facility] [place] [address] Anesthesia Record Procedure Summary Procedure Name Responsible [...] 0350; median vein (underside of arm), right; lgoi-eck-cccsyf catheter system; Ultrasound Guidance; Yes - US guidance used but Image NOT saved; 22 gauge, 1 in length; LANE Pleitez VAS; distraction, intradermal injection, tolerated well; 0; 04/30/21; 1653 04/25/21 0350 by Hillary Pleitez RN 04/30/21 1653 by Arlene Ignacio RN (RETIRED) Peripheral IV Line - Single Lumen 04/28/21; 1239; basilic vein (medial side of arm), right; xkpu-uwz-bhjzng catheter system; Ultrasound Guidance; 20 gauge, 3/4 in length, 1 in length; Guzman SENA RN; distraction, intradermal injection, tolerated well, appears comfortable; 0; LDA not present upon assessment; 04/29/21; 1354 04/28/21 1239 by Lissett Hinds RN 04/29/21 1354 by Lissett Hinds [...] All Anesthesia Providers: Anesthesiologist: Arianna Ramirez MD Copy Director: Alberto Campos MD Vitals Value Taken Time [...] End time: 04/29/2021 9:21 AM Patient Location: [facility] Patient Prep Position: Sitting Prep: Chlorhexidine, Patient [...] the episode, otherwise no other complications reported. Resident/PORTAL DEVELOPER: Alberto Campos MD Second Resident/PORTAL DEVELOPER: SRNA: Fellow: Attending Physician: Arianna Ramirez MD [...] aspriso, [facility]: Procedure Laterality Date [...] EST documented in this encounter Results * [id number] (04/29/2021 10:03 AM EST) Narrative Arianna Ramirez [...] End time: 04/29/2021 9:21 AM Patient Location: [facility] Patient Prep Position: Sitting Prep: Chlorhexidine, Patient [...] the episode, otherwise no other complications reported. Resident/PORTAL DEVELOPER: ? Alberto Campos MD Second Resident/PORTAL DEVELOPER: SRNA: ? Fellow: ? Attending Physician: ? Arianna Ramirez MD ~~~~~~~~~~~~~~~~~~~~~~~~~~~~~~~~~~~~~~~~~~~~~~~~~~~~~~~~~~~~ Arianna Ramirez MD [facility] documented in this encounter Visit Diagnoses [...] mcg documented in this encounter Care Teams Geometry Teacher Relationship Specialty Start Date End Date Cielo Goncalves MD [facility] [address] [place] [address] PCP - General 01/16/10 documented as of this encounter
--- OUTSIDE RECORDS SUMMARY | 2024-03-24 10:06 | XMS_ITS | Encounter Summary ---
Author Organization [facility] Address [address] [place] [address] Care Team Providers Care Brand Activation Manager Name Role Phone Unknown, Provider Primary Care Provider Tiffany garcia Encounter Details Date Type Department Care Team (Late st Contact Info) Description 11/28/2016 Results Only [facility] [phone] Concepcion Dee MD [address] [place] [address], [place] [phone] Social History Tobacco Use Types Packs/Day Years [...] ? EDWAR DOMINGUEZ ? Accession #: ? [id number] ? : ? 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 Comment: Talent Manager sections of the case reviewed at the [...] Ali 11/29/2016 10:13 AM End of Report [facility] 11/28/2016 9:17 EDT 11/29/2016 9:17 EDT us Concepcion Dee MD PATHOLOGY ORDERABLES Final Res ult [facility] [address] [place] [address] documented in this encounter Visit Diagnoses Not on filedocumented in this encounter Care Teams Brand Activation Manager Relationship Specialty Start Date End Date Unknown, Provider, PCP - General 12/31/14 documented as of this encounter
--- OUTSIDE RECORDS SUMMARY | 2024-03-24 10:06 | XMS_ITS | Encounter Summary ---
Author Organization [facility] Address [facility] [place] [address] Care Team Providers Care Slot Supervisor Name Role Phone Cielo Goncalves MD Primary Care Provider [phone] Encounter Details Date Type Department Care Team (Latest Contact Info) Description 02/06/2021 10:45 AM EST - 02/06/2021 11:59 PM EST Hospital [place] [address] Darline García MD [facility] [place] [address] Supervision of high risk in first trimester; [...] 30 tablet 2 05/04/2021 vitamin 27 & [id number]-XL 60 mg iron-1 mg Tablet Take 1 [...] who have questions, please contact the health director of critical care that requested your imaging first. ?Gus Parikh, Staff Physician Electronically Signed Final Report ?? 02/06/2021 01:07 pm Narrative 02/06/2021 1:08 PM EST OBSTETRICS REPORT ?(Signed Final 02/06/2021 01:07 pm) PATIENT INFO: ID #: ? [id number] ?: ??[birth year] (46 yrs)(F) Name: ? EDWAR J ALBERTO ? Visit Date: 02/06/2021 11:42 am PERFORMED BY: Performed By: ? Jaylene Omalley RDMS Attending: ?Jl RIVERA, Gus Greer Referred By: ?DARLINE GARCÍA Location: ? [place] SERVICE(S) PROVIDED: [facility] - Detailed Morphology - [id number] ? [id number] INDICATIONS: 22 weeks gestation of ?Z3A.22 morphology [...] Arch: ? Visualized SVC: ? Visualized Cardiac [place]: ?Visualized Diaphragm: ? Visualized 3 Vessel View: [...] 02/06/2021 01:07 pm) PATIENT INFO: ID #: [id number] : [birth year] (46 yrs)(F) Name: EDWAR DOMINGUEZ Visit Date: 02/06/2021 11:42 am PERFORMED BY: Performed By: Jaylene Omalley RDMS Attending: Gus Parikh MD Referred By: DARLINE GARCÍA Location: [place] SERVICE(S) PROVIDED: [facility] - Detailed Morphology - [id number] INDICATIONS: 22 weeks gestation of Z3A.22 morphology [...] Visualized Ductal Arch: Visualized SVC: Visualized Cardiac [place]: Visualized Diaphragm: Visualized 3 Vessel View: Visualized [...] who have questions, please contact the health director of critical care that requested your imaging first. Gus Parikh, Staff Physician Electronically Signed Final Report 02/06/2021 01:07 pm Darline García MD IMG OB ORDERABL ES documented in this encounter Visit Diagnoses Diagnosis Supervision of high risk in first trimester Unspecified high-risk Multigravida of advanced maternal age in first trimester documented in this encounter Care Teams Slot Supervisor Relationship Specialty Start Date End Date Cielo Goncalves MD [address] [place] [address] PCP - General 01/16/10 documented as of this encounter
--- OUTSIDE RECORDS SUMMARY | 2024-03-24 10:06 | XMS_ITS | Encounter Summary ---
Author Organization [facility] Address [address] [place] [address] Care Team Providers Care Poultry Field Service Technician Name Role Phone Unavailable Primary Care Provider Unavailabl e Encounter Details Date Type Department Care Team (Late st Contact Info) Description 10/03/2004 Results Only [facility] [place] conversion [address] [place] [address] Joshua Marcelo MD [address] [place] [address] Social History Tobacco Use Types Packs/Day Years [...] ? EDWAR DOMINGUEZ ? Accession #: ? [id number] ? : ? 1975 (Age: 29) ??F [...] been reviewed at intradepartmental consultation conference. ??(Dr. Forbes)/[facility] Document reviewed and electronically signed by: [...] as (C). Received in Hollande's fixative labelled Jem and sigmoid bx is a 0.4 x [...] ORDERABLES Final Res ult Performing Organization Address City/State/[facility] Co de Phone Number [facility] [address] [place] [address] documented in this encounter Visit Diagnoses Not on filedocumented in this encounter
--- OUTSIDE RECORDS SUMMARY | 2024-03-24 10:06 | XMS_ITS | Encounter Summary ---
Author Organization [facility] Address [facility] [place] [address] Care Team Providers Care Machine Cloth Measurer Name Role Phone Cielo Goncalves MD Primary Care Provider [phone] Reason for Visit * Reason Comments Ultrasound * Consultation - Closed Specialty Diagnoses / Procedures Referred By Trisha colon Referred To Contact Obstetrics and Gynecology Diagnoses Chronic kidney disease, stage 3a Personal history of other diseases of the circulatory system Ulcerative colitis, unspecified, without complications Supervision of elderly multigravida, unspecified trimester Leigha Roberson, VIRGIL [address] [place] [address] [address] [address] [facility] [address] [place] [address] Referral ID Status Reason Start Date Expiration Date V isits Requested Visits Authorized [id number] Closed Consult, [facility] PCP Updated and/or Approved 11/20/2020 11/20/2021 6 6 Encounter Details Date Type Department Care Team (Late st Contact Info) Description 02/06/2021 12:00 PM EST Office Visit Obstetrics [place] [address] Gus Parikh MD [facility] DR OBSTETRICS [place] [address] Hypertension affecting in third trimester; [...] Le MD and Leigha Roberson CNM in [place], [place] today reassuring: Normal appearing, normally [...] trimester documented in this encounter Care Teams Machine Cloth Measurer Relationship Specialty Start Date End Date Cielo Goncalves MD [address] [place] [address] PCP - General 01/16/10 documented as of this encounter
--- OUTSIDE RECORDS SUMMARY | 2024-03-24 10:06 | XMS_ITS | Encounter Summary ---
Author Organization [facility] Address [address] [facility] [place] [address] Care Team Providers Care Fruit Grading Supervisor Name Role Phone Cielo Goncalves MD Primary Care Provider [phone] Encounter Details Date Type Department Care Team (Late st Contact Info) Description 11/21/2008 Interpretation Only Radiology [address] [facility] [place] [phone] Unknown None Social History Tobacco Use Types [...] 7:12 AM EDT AP[facility] Historical Result Principal Special Officer: ??ELIANA ??CANDY FLUOROSCOPY: A total of 3 [...] available for comparison. Eliana Gupta MD KG/rm [id number] CC: Procedure Note Unknown - 08/24/2018 APD Historical Result Principal Special Officer: ELIANA GUPTA FLUOROSCOPY: A total of 3 [...] available for comparison. Eliana Gupta MD KG/rm [id number] CC: Unknown IMG FLUORO ORDERABLE S documented in this encounter Visit Diagnoses Not on filedocumented in this encounter Care Teams Fruit Grading Supervisor Relationship Specialty Start Date End Date Cielo Goncalves MD [address] [place] [address] PCP - General 01/16/10 documented as of this encounter
--- OUTSIDE RECORDS SUMMARY | 2024-03-24 10:06 | XMS_ITS | Encounter Summary ---
Author Organization [facility] Address [address] [place] [address] Care Team Providers Care Piano Case Maker Name Role Phone Unknown, Provider Primary Care Provider Tiffany garcia Encounter Details Date Type Department Care Team (Late st Contact Info) Description 01/23/2017 Results Only [facility] [phone] Cielo Nichols MD [address] [phone] Social History Tobacco Use Types Packs/Day Years [...] ? EDWAR DOMINGUEZ ? Accession #: ? [id number] ? : ? 1975 (Age: 42) ??F [...] types 16,18,31,33,35, 39,45,51,52,56,58, 59,66, and 68 by chemical tester mediated amplification. Comments Document reviewed and electronically signed by: ? System Interface ? Report date: 02/06/2017 By the signature above, the attending physician certifies that he/she has personally conducted a gross and/or microscopic examination of the described specimens and rendered or confirmed the above diagnosis. End of Report [facility] 01/23/2017 01/24/2017 us Cielo Nichols MD PATHOLOGY ORDERABLES Final Resul t [facility] [address] [place] [address] documented in this encounter Visit Diagnoses Not on filedocumented in this encounter Care Teams Piano Case Maker Relationship Specialty Start Date End Date Unknown, Provider, PCP - General 12/31/14 documented as of this encounter
--- OUTSIDE RECORDS SUMMARY | 2024-03-24 10:06 | XMS_ITS | Encounter Summary ---
Author Organization [facility] Address [address] [place] [address] Care Team Providers Care Correspondence Dictator Name Role Phone Unknown, Provider Primary Care Provider Tiffany ilable Encounter Details Date Type Department Care Team (Latest Contact Info) Description 06/27/2016 9:40 EDT - 06/27/2016 23:59 EDT Hospital Encounter [address] [address] Unknown, Provider, Discharge Disposition: Home or Self [...] Code Departure Means Destination Home or Self Mcfp documented in this encounter Plan of Treatment Not on file documented as of this encounter Visit Diagnoses Not on filedocumented in this encounter Care Teams Correspondence Dictator Relationship Specialty Start Date End Date Unknown, Provider, PCP - General 12/31/14 documented as of this encounter
--- OUTSIDE RECORDS SUMMARY | 2024-03-24 10:06 | XMS_ITS | Encounter Summary ---
Author Organization [facility] Address [address] [place] [address] Care Team Providers Care Spin Instructor Name Role Phone Unavailable Primary Care Provider Unavailabl e Encounter Details Date Type Department Care Team (Late st Contact Info) Description 01/28/2006 Results Only [facility] conversion [address] [place] [address] Joshua Marcelo MD [address] [place] [address] Social History Tobacco Use Types Packs/Day Years [...] ? EDWAR DOMINGUEZ ? Accession #: ? [id number] ? : ? 1975 (Age: 31) ??F ? Collect Date: ? 01/28/2006 ? Location: ? [facility] ? Receive Date: ? 01/28/2006 ? Provider: COOPER MARCELO MD Copy to: THADDEUS NICHOLS MD ? Final Pathologic Diagnosis: ? Note: ??This specimen was originally received on 01/28/06 and accessioned as [id number] under a [facility] record number belonging to a different patient. [...] that form a fine reticular pattern. ??Two truck sales representative cross sections of gallbladder wall and the cystic duct resection margin (en fact) are submitted in one cassette. ??(Dr. Rabia Williamson-)/tmg End of Report [facility] [place] 01/28/2006 01/28/2006 13: 17 EST us Joshua Marcelo MD PATHOLOGY ORDERABLES Final Res ult [facility] [place] [address] [place] [address] documented in this encounter Visit Diagnoses Not on filedocumented in this encounter
--- OUTSIDE RECORDS SUMMARY | 2024-03-24 10:06 | XMS_ITS | Encounter Summary ---
Author Organization [facility] Address [address] [place] [address] Care Team Providers Care Golf Ball Cover Treater Name Role Phone Unavailable Primary Care Provider Unavailabl e Encounter Details Date Type Department Care Team (Late st Contact Info) Description 08/10/2004 Results Only [facility] conversion [address] [place] [address] Alexys Foley, CREATIVE INTERN [address] [place] [address] Social History Tobacco Use Types [...] ? EDWAR DOMINGUEZ ? Accession #: ? [id number] : ? 1975 (Age: 29) ??F ?Collect Date: ? 08/10/2004 Location: ? [facility] ? Receive Date: ? 08/14/2004 Provider: ?ALEXYS FOLEY CREATIVE INTERN Copy to: ? Specimen/Source: ?ThinPrep Pap Test, [...] ORDERABLES Final R esult [facility] [place] [address] [place] [address] documented in this encounter Visit Diagnoses Not on filedocumented in this encounter
--- OUTSIDE RECORDS SUMMARY | 2024-03-24 10:06 | XMS_ITS | Encounter Summary ---
Author Organization [facility] [place] [address] Care Team Providers Care Rejoiner Name Role Phone Cielo Goncalves MD Primary Care Provider [phone] Reason for Visit * Reason Comments Acne Encounter Details Date Type Department Care Team (Late st Contact Info) Description 05/16/2011 1:15 PM EDT Office Visit Dermatology [address] [place] [address] [address] [place] [address] Odilon Monae MD [address], JOSE RAMON A DERMATOLOGY [place], [place] [id number] Acne vulgaris (Primary Dx) Social History Tobacco [...] Discussed the option of obtaining tetracycline through [facility] online. b. Patient would like to pursue this, and she was given website, and she will contact them. c. Will fax prescription for tetracycline 250 mg to be taken two p.o. b.i.d., dispensed #300 with five refills to [facility] online. d. The patient knows that she should be seeing improvement within two months of starting medication. Return to clinic here if that is not the case. Copy: Cielo Goncalves M.D. documented in this encounter Plan of Treatment Not on file documented as of this encounter Visit Diagnoses Diagnosis Acne vulgaris- Primary Other acne documented in this encounter Care Teams Rejoiner Relationship Specialty Start Date End Date Cielo Goncalves MD [address] [place] [address] [address] [place] [address] PCP - General 01/16/10 documented as of this encounter
--- OUTSIDE RECORDS SUMMARY | 2024-03-24 10:06 | XMS_ITS | Encounter Summary ---
Author Organization [facility] Address [address] [place] [address] Care Team Providers Care Surgical Dental Assistant Name Role Phone Unknown, Provider Primary Care Provider Tiffany garcia Encounter Details Date Type Department Care Team (Late st Contact Info) Description 11/20/2020 Lab Requisition [facility] [address] [place], [place] [id number] Outr Resulting Lab, Provider Social History Tobacco [...] 4th Generation Negative Negative 11/21/2020 13:27 EDT [facility] Comment: If acute HIV-1 infection is suspected in a high risk ??patient, submit plasma specimen for HIV-1 RNA quantitation test. Fourth Generation assay performed on the Siemens ImageBriefaur. Blood VENOUS BLOOD / Unknown 11/20/2020 15:33 EDT 11/20/2020 20:58 EDT us Provider Outr Resulting Lab IMMUNOLOGY AND SEROL OGY ORDERABLES Final Result [facility] [address] [place] [address] documented in this encounter Visit Diagnoses Not on filedocumented in this encounter Care Teams Surgical Dental Assistant Relationship Specialty Start Date End Date Unknown, Provider, PCP - General 12/31/14 documented as of this encounter
--- OUTSIDE RECORDS SUMMARY | 2024-03-24 10:06 | XMS_ITS | Encounter Summary ---
Author Organization [facility] Address [address] [place] [address] Care Team Providers Care Business Continuity Planning Director Name Role Phone Unknown, Provider Primary Care Provider Tiffany garcia Encounter Details Date Type Department Care Team (Late st Contact Info) Description 06/27/2016 Results Only [facility] [phone] Anjel Teixeira MD [address] [facility] [address] [place] [id number] Social History Tobacco Use Types Packs/Day Years [...] ? EDWAR DOMINGUEZ ? Accession #: ? [id number] ? : ? 1975 (Age: 41) ??F [...] Riojas 06/29/2016 9:07 AM End of Report [facility] 06/27/2016 18:5 6 EDT 06/28/2016 18:56 EDT us Anjel Teixeira MD PATHOLOGY ORDERABLES Final Resul t [facility] [address] [place] [address] documented in this encounter Visit Diagnoses Not on filedocumented in this encounter Care Teams Business Continuity Planning Director Relationship Specialty Start Date End Date Unknown, Provider, PCP - General 12/31/14 documented as of this encounter
--- OUTSIDE RECORDS SUMMARY | 2024-03-24 10:06 | XMS_ITS | Encounter Summary ---
[place] [address] Care Team Providers Care Freelance Translator Name Role Phone Cielo Goncalves MD Primary Care Provider [phone] Reason for Visit * Diagnostic Test (Routine) - Closed Specialty Diagnoses / Procedures Referred By Trisha colon Referred To Contact Obstetrics and Gynecology Diagnoses Supervision of high risk in first trimester Multigravida of advanced maternal age in first trimester Procedures Spinal Muscular Atrophy Darline Martinez MD [facility] DR OBSTETRICS [place] [address] [facility] [address] [place] [address] Referral ID Status Reason Start Date Expiration Date Visits Re quested Visits Authorized [id number] Closed 11/16/2020 11/16/2021 1 1 Encounter Details Date Type Department Care Team (Latest Contact Info) Description 11/27/2020 10:35 AM EDT Laboratory Appointment Lab [address] [place] [address] Supervision of high risk in [...] in first trimester HIV SCREEN, 4TH GENERATION ([facility]/CGP/APD/NL)PERFOR PREM Routine 11/27/2020 11:01 AM EDT Supervision of [...] 11:11 AM EDT) Creatinine, Urine 32 mg/dL [facility] Protein, Urine <6 0 - 12 mg/dL [facility] Protein / Creatinine Ratio, Urine <0.2 ratio [facility] Urine 11/27/2020 11:1 1 AM EDT 11/27/2020 11:24 AM EDT Narrative Resulting Agency Comment Spec In Lab Darline Martinez MD URINE ORDERABLES Performing Organization Address [facility] Co de Phone Number [facility] [place] [address] * Type and Screen Validity (11/27/2020 11:01 AM EDT) T&S only valid at [facility] Comment:This Type and Screen result is only valid at the [facility] Blood 11/27/2020 11:0 1 AM EDT 11/27/2020 11:07 AM EDT Narrative Resulting Agency Comment Spec In Lab Darline Martinez MD BLOOD BANK LAB ORD ERABLES Performing Organization Address [facility] Co mn Phone Number [facility] [place] [address] * HIV Screen, 4th Generation ([facility]/CGP/APD/NLH) (11/27/2020 11:01 AM EDT) Pathologist [facility] HIV Ab/Ag Screen Negative Negative [facility] Comment: This 4th Generation HIV [...] HIV Comment Low Risk of HIV Infection [facility] Blood 11/27/2020 11:0 1 AM EDT 11/27/2020 11:22 AM EDT Narrative Resulting Agency Comment Spec In Lab Darline Martinez MD CHEMISTRY ORDERABL ES Performing Organization Address [facility] Co de Phone Number [facility] [place] [address] * Syphilis Screening Antibody with reflex RPR (11/27/2020 11:01 AM EDT) Syphilis IgG/IgM Negative Negative [facility] Blood 11/27/2020 11:0 1 AM EDT 11/27/2020 11:22 AM EDT Narrative Resulting Agency Comment Spec In Lab Darline Martinez MD CHEMISTRY ORDERABL ES [facility] [place] [address] * (ABNORMAL) Differential, Automated (11/27/2020 11:01 AM EDT) Neutrophil % 71.7 % [facility] Neutrophil Absolute 7.10(H) 1.70 - 6.10 x10(3)/mc L [facility] Lymph % 18.8 % [facility] Lymphocytes Abs 1.9 0.9 - 3.2 x10(3)/mc L [facility] Monocyte % 6.6 % [facility] Monocyte Abs 0.6 0.3 - 0.9 x10(3)/mc L [facility] Eos % 1.4 % [facility] Eosinophils Abs 0.1 0.0 - 0.4 x10(3)/mc L [facility] Basophil % 0.3 % [facility] Baso Absolute 0.0 0.0 - 0.1 x10(3)/mc L [facility] Immature Gran % 1.20 % [facility] Comment: Immature granulocytes(IG's)percentage and absolute count will include metamyelocytes, myelocytes, and promyelocytes. Blood smears from CBCs yielding IG's will be scanned manually for concordance. If this scan disagrees with the automated IG or if promyelocytes are noted, a manual differential will be performed. Immature Gran Absolute 0.12(H) 0.00 - 0.04 x10(3)/mc L [facility] Blood 11/27/2020 11:0 1 AM EDT 11/27/2020 11:22 AM EDT Narrative Resulting Agency Comment Spec In Lab Darline Martinez MD HEMATOLOGY ORDERAB LES Performing Organization Address City/[facility]/ZIP Co de Phone Number [facility] [place] [address] * (ABNORMAL) Hemogram (11/27/2020 11:01 AM EDT) White Blood Cell 9.9(H) 4.0 - 9.5 x10(3)/mc L [facility] Red Blood Cell 3.77(L) 4.00 - 5.21 x10(6)/mc L [facility] Hemoglobin 11.8 11.7 - 15.5 g/dL [facility] Hematocrit 34.4(L) 35.7 - 45.8 % [facility] Mean Cell Volume 91.2 82.6 - 94.4 fL [facility] Mean Cell Hemoglobin 31.3 27.1 - 32.0 pg [facility] Mean Cell Hemoglobin Concentration 34.3 31.7 - 35.0 g/dL [facility] Platelet 243 145 - 357 x10(3)/mc L [facility] RDW Standard Deviation 42.2 37.0 - 46.0 [facility] RDW coefficient of variation 12.8 11.5 - 14.1 % [facility] Mean Platelet Volume 9.2 7.6 - 12.9 fL [facility] NRBC% auto 0.0 % [facility] NRBC Absolute 0.000 0.000 - 0.000 x10(3)/mc L [facility] Blood 11/27/2020 11:0 1 AM EDT 11/27/2020 11:22 AM EDT Narrative Resulting Agency Comment Spec In Lab Darline Martinez MD HEMATOLOGY ORDERAB LES [facility] [place] [address] * Rubella Antibody, IgG (11/27/2020 11:01 AM EDT) Rubella Antibody IgG Positive Positive [facility] Comment: Please note: ??A positive result for this assay indicates that antibody levels are >or= 10.0 IU/mL and is considered to be an indicator of positive immune status. Blood 11/27/2020 11:0 1 AM EDT 11/27/2020 11:22 AM EDT Narrative Resulting Agency Comment Spec In Lab Darline Martinez MD CHEMISTRY ORDERABL ES Performing Organization Address [facility] Co de Phone Number [facility] [place] [address] * Hepatitis B Surface Antigen (11/27/2020 11:01 AM EDT) Hepatitis B Surface Antigen Negative Negative [facility] Blood 11/27/2020 11:0 1 AM EDT 11/27/2020 11:22 AM EDT Narrative Resulting Agency Comment Spec In Lab Darline Martinez MD CHEMISTRY ORDERABL ES Performing Organization Address [facility] Co de Phone Number [facility] [place] [address] * Antibody screen (11/27/2020 11:01 AM EDT) Ab Screen Interp Negative [facility] Expires at [id number] on: 11/30/2020 [facility] Blood 11/27/2020 11:0 1 AM EDT 11/27/2020 11:07 AM EDT Narrative Resulting Agency Comment Spec In Lab Darline Martinez MD BLOOD BANK LAB ORD ERABLES Performing Organization Address [facility]/ZIP Co de Phone Number [facility] [place] [address] * ABO/Rh Typing (11/27/2020 11:01 AM EDT) ABORH Type O Pos [facility] Blood 11/27/2020 11:0 1 AM EDT 11/27/2020 11:07 AM EDT Narrative Resulting Agency Comment Spec In Lab Darline Martinez MD BLOOD BANK LAB ORD ERABLES Performing Organization Address [facility] Co de Phone Number [facility] [place] [address] * Varicella zoster Antibody, IgG (11/27/2020 11:01 AM EDT) Varicella Zoster Antibody IgG Pos [facility] Blood 11/27/2020 11:0 1 AM EDT 11/27/2020 1:57 PM EDT Narrative Resulting Agency Comment Spec In Lab Darline Martinez MD IMMUNOLOGY ORDERAB LES Performing Organization Address [facility] Co de Phone Number [facility] [place] [address] * Hepatitis C Antibody (11/27/2020 11:01 AM EDT) Hepatitis C Antibody Negative Negative [facility] Blood 11/27/2020 11:0 1 AM EDT 11/27/2020 11:22 AM EDT Narrative Resulting Agency Comment Spec In Lab Darline Martinez MD CHEMISTRY ORDERABL ES Performing Organization Address [facility] Co de Phone Number [facility] [place] [address] * Creatinine (11/27/2020 11:01 AM EDT) Creatinine 0.72 0.70 - 1.20 mg/dL [facility] Est Glomerular Filtration Rate 101 >=60 mL/min/1. 73 m?? [facility] Comment: This patient? s estimated [...] ORDERABL ES Performing Organization Address [facility]/ZIP Co de Phone Number [facility] [place] [address] * Aspartate Aminotransferase (11/27/2020 11:01 AM EDT) Aspartate Aminotransferase 15 0 - 30 unit/L [facility] Blood 11/27/2020 11:0 1 AM EDT 11/27/2020 11:22 AM EDT Narrative Resulting Agency Comment Spec In Lab Darline Martinez MD CHEMISTRY ORDERABL ES Performing Organization Address [facility] Co de Phone Number [facility] [place] [phone] * Panorama Screen (11/27/2020 11:01 AM EDT) Panorama Screen See Scan Report [facility] Comment:Test performed by Aylin zuñiga, [address] [place] [address], [address], [place] [address] Blood 11/27/2020 11:0 1 AM EDT 11/27/2020 12:16 PM EDT Narrative Resulting Agency Comment Spec In Lab Darline Martinez MD LAB SEND OUT ORDER MITRA Performing Organization Address City/[facility]/ZIP Co de Phone Number [facility] [place] [address] * CF Carrier (11/27/2020 11:01 AM EDT) [...] the 23 CF-causing variants recommended by the [employer]. This [...] Carrier risk after a negative result Ashkenazi Anabaptism: ??95.44%; ??23.8; ??1/501 White: ??94.2%; ??/25; ??/415 : ??82.1%; ??1/58.2; ??1321 Black: ??78.7%; ??/61.4; ??285 : ??71.5%; ??/93.7; ??326 Carrier rates are based on the [...] conditional reporting of three benign variants when p.J587mav is homozygous. METHODS: Genomic DNA was extracted from the submitted peripheral blood specimen using the [employer] E[employer]1 [employer]. The CFTR gene was tested for the presence of the following variants by next-generation sequencing using the [employer] Cystic Fibrosis 139-Variant Assay ([employer], [place], [place]); G85E (c.254G>A)*, R117H (c.350G>A)*, 621+1G>T (c.489+1G>T)*, 711+1G>T (c.579+1G>T)*, R553X (c.1657C>T)*, F2281Q (c.3484C>T)*, 3659delC (c.3528delC)*, 3849+10kbC>T (c.3717+02146S>T)* , W0477Q (c.3846G>A)*, F2665A (c.3909C>G)*, R347P (c.1040G>C)*, A455E (c.1364C>A)*, S649eco (c.1519_ 1521delATC)*, R905tyq (c.1521_ 1523delCTT)*, 1717-1G>A (c.1585-1G>A)*, R560T (c.1679G>C)*, 1898+1G>A (c.1766+1G>A)*, 2184delA (c.2052delA)*, 2789+5G>A (c.2657+5G>A)*, G542X (c.1624G>T)*, R334W (c.1000C>T)*, G551D (c.1652G>A)*, 3120+1G>A (c.2988+1G>A)*, M1V (c.1A>G)?, CFTR dele2,3 (c.54-5940_273+102 46wmx61tu), ??Q39X (c.115C>T), ?E60X (c.178G>T)?, P67L (c.200C>T), R75X (c.223C>T)?, 394delTT (c.262_263delTT)?, 405+1 G>A (c.273+1G>A), 406-1G>A (c.274-1G>A), E92X (c.274G>T), E92K (c.274G>A), Q98X (c.292C>T), 457TAT>G (c.325_327delTATin sG), D110H (c.328G>C), R117C (c.349C>T), Y122X (c.366T>A), 574delA (c.442delA), 663delT (c.531delT), G178R (c.532G>A), 711+3A>G (c.579+3A>G), 711+5 G>A (c.579+5G>A), 712-1 G>T (c.580-1G>T), H199Y (c.595C>T), P205S (c.613C>T), L206W (c.617T>G), Q220X (c.658C>T), T338I (c.1013C>T), 3272-26A>G (c.3140-26A>G), F1994B (c.3194T>C), Y2422T (c.3196C>T), U6650G (c.3197G>A), O8834Y (c.3230T>C), Z1973P (c.3266G>A), X2695X(C>A) (c.3276C>A), H7566C(C>G) (c.3276C>G), T2793V (c.3302T>A), S0337B (c.3310G>T), E9608F (c.3472C>T), Y3581P (c.3587C>G), C9929C (c.3611G>A), Z6634D (c.3612G>A), 3791delC (c.3659delC), Z0008B (c.3731G>A), 3876delA (c.3744delA), B2121H (c.3752G>A), 3905insT (c.3773_3774insT), 4005+1G>A (c.3873+1G>A), 4016insT (c.3884_3885insT), D2069D (c.3937C>T), 4209TGTT>AA (c.4077_ 4080delTGTTinsAA), SNLSnuqx02,23 (c.3964-78_ 4242+577del), 4382delA (c.4251delA), S341P (c.1021T>C), 1154insTC (c.1022_1023insTC) , R347H (c.1040G>A), R352Q (c.1055G>A), 1213delT (c.1081delT), 1248+1G>A (c.1116+1G>A), 1259insA (c.1127_1128insA), W401X (c.1202G>A), W401X (c.1203G>A), 1341+1G>A (c.1209+1G>A), 0414jpk4 (c.1329_ 1330insAGAT), 1525-1G>A (c.1393-1G>A), S466X (C>A) (c.1397C>A), [...] (c.2583delT), Q890X (c.2668C>T), L927P (c.2780T>C), S945L (c.2834C>T), 86htx06 (c.720_ 741delAGGGAGAATGAT GATGAAGTAC), 1078delT (c.948delT), G330X (c.988G>T), I336K (c.1007T>A), S549R (c.1645A>C), 3007delG (c.2875delG), S549N (c.1646G>A), G970R (c.2908G>C), S549R (c.1647T>G), 3120G>A (c.2988G>A), Q552X (c.1654C>T), 3121-1G>A (c.2989-1G>A) Reflex reporting with homozygous p.F996ped or p.A188dgy: I506V (c.1516A>G), I507V (c.1519A>G), F508C (c.1523T>G) Reflex [...] variants. The conditionally reported variants in the [employer] Cystic Fibrosis 139-Variant assay consist of the polyTG/polyT region (which is reported when the R117H variant is identified) and benign variants I506V, I507V, and D864U34 (reported when a homozygous D573yfb or Z148jdy are identified) 4. The assay cannot determine [...] characteristics have been verified by the Clinical [employer] [facility] [employer] [facility] (CGAT) Laboratory at [facility]. REFERENCES: 1. ACOG/ACMG. Preconception and carrier screening for cystic fibrosis. 2001, pp.1-31. 2. Jaydon Holt, Angela Busby, Valerio S, Alysa Hurst, Alexandra Khalil, Cierra Hurst. The Spectrum of CFTR Variants in Nonwhite Cystic Fibrosis Patients: Implications for Molecular Diagnostic Testing. J Mol Diagn. 2016 Feb;18(1):39-50. [PMID: 83274231] 3. AC, Technical Standards and Guidelines for CFTR Mutation Testing, 2008 Edition (Accessed April 2018) https://www.acmg.n et/docs/CFTR_Mutat ion_Testing_2010.p df [facility] Comment: [VERIFIED DATE]12.01.20 Verified By:Jeremi PhD, Simon Claros Director, Molecular Pathology (Electronic Signature) Blood 11/27/2020 11:0 1 AM EDT 11/27/2020 12:51 PM EDT Narrative Resulting Agency Comment Spec In Lab Darline Martinez MD MOLECULAR ORDERABL ES [facility] [place] [address] * Spinal Muscular Atrophy (11/27/2020 11:01 AM [...] Risk if 3 Copies SMN1 (1:3,500) Ashkenazi Anabaptism: The carrier detection (90%); Carrier Risk (1:41); [...] Genomics and Advanced Technology (CGAT) Laboratory at [facility]. It has not been cleared or approved by the FDA. The laboratory is regulated under CLIA as qualified to perform high-complexity testing. This test is used for clinical purposes. It should not be regarded as investigational or for research. [facility] Comment: [VERIFIED DATE]10.08.21 Verified By:Jeremi PhD, Simon Claros Director, Molecular Pathology (Electronic Signature) Blood 11/27/2020 11:0 1 AM EDT 11/27/2020 12:51 PM EDT Narrative Resulting Agency Comment Spec In Lab Darline Martinez MD MOLECULAR ORDERABL ES [facility] [place] [address] documented in this encounter Visit Diagnoses Diagnosis Supervision of high risk in first trimester Unspecified high-risk Multigravida of advanced maternal age in first trimester documented in this encounter Care Teams Freelance Translator Relationship Specialty Start Date End Date Cielo Goncalves MD [facility] [address] [place] [address] PCP - General 01/16/10 documented as of this encounter
--- OUTSIDE RECORDS SUMMARY | 2024-03-24 10:06 | XMS_ITS | Referral Summary ---
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 02/16/2024 12:21 [facility] Final Diagnosis A. ENDOMETRIUM, BIOPSY: - Secretory endometrium - Fragments suggestive of benign endometrial polyp. 02/16/2024 12:21 [facility] Attestation There was significant resident/fellow involvement in the diagnostic evaluation of this case. By the signature below, the attending physician certifies that they have personally conducted a gross and/or microscopic examination of the described specimens and rendered or confirmed the above diagnosis. 02/16/2024 12:21 [facility] at 1221 Clinical History Menorrhagia 02/16/2024 12:21 [facility] Gross Description A. Received in formalin labelled with proper patient identification (initials R, B) and endometrium is an aggregate of rubbery gu-wynn and dark red-brown tissue (3.0 x 1.7 x 0.5 cm). Entirely submitted in A1-A2. Ingrid Boydonald 02/12/2024 9:48 02/16/2024 12:21 [facility] Resident/Danny w: Nilda Galindo MD 02/16/2024 12:21 [facility] Performing Lab [facility] 02/16/2024 12:21 [facility] Scanned Images 02/16/2024 12:21 [facility] Tissue ENDOMETRIAL STRUCTURE / Unknown 02/11/2024 9:38 EST 02/12/2024 7:00 EST us Debo Tamayo MD PATHOLOGY ORDERABLES Final R esult [facility] [address] [place] [address] * IGA (02/02/2024 10:16 EST) IgA 374 85 - 499 mg/dL 02/03/2024 10:13 EST [facility] Blood VENOUS BLOOD / Unknown 02/02/2024 10:16 EST 02/02/2024 22:09 EST us Provider Outr Resulting Lab CHEMISTRY & BLOOD GA S ORDERABLES Final Result Performing Organization Address [facility] [[email or web address]] Co de Phone Number [facility] [address] [place] [address] * HEPATITIS C AB W REFLEX TO HCV RNA BY PCR (11/20/2020 15:33 EDT) Hep C Antibody Negative Negative 11/21/2020 12:27 EDT [facility] Blood VENOUS BLOOD / Unknown 11/20/2020 15:33 EDT 11/20/2020 20:58 EDT us Provider Outr Resulting Lab CHEMISTRY & BLOOD GA S ORDERABLES Final Result Performing Organization Address City/[facility]/ZIP Co de Phone Number [facility] [address] [place] [address] from Last 3 Months or Most Recently Relevant to Health Maintenance Insurance MEDICA[employer] [place] Care Teams Electric Relay Tester Relationship Specialty Start Date End Date Unknown, Provider, PCP - General 12/31/14
--- OUTSIDE RECORDS SUMMARY | 2024-03-24 10:06 | XMS_ITS | Encounter Summary ---
Author Organization [facility] Address [address] [place] [id number] Care Team Providers Care Diagnostic Tech Name Role Phone Unavailable Primary Care Provider Unavailabl e Encounter Details Date Type Department Care Team (Late st Contact Info) Description 07/17/2012 Results Only [facility] - [facility] ([facility] [address], [place] [id number] Cielo Nichols MD [address] [id number] Social History Tobacco Use Types [...] when reading/interpreti ng unformatted reports. Name: ? ALBERTO EDWAR J ? Accession #: ? [id number] ? : ? 1975 (Age: 37) ??F [...] types 16,18,31,33,35, 39,45,51,52,56,58, 59,66, and 68 by safe and vault installer mediated amplification. Comments Document reviewed and electronically signed by: ? System Interface ? Report date: 07/28/2012 By the signature above, the attending physician certifies that he/she has personally conducted a gross and/or microscopic examination of the described specimens and rendered or confirmed the above diagnosis. End of Report [facility] 07/17/2012 07/21/2012 us Cielo Nichols MD PATHOLOGY ORDERABLES Final Resul t [address] [address] documented in this encounter Visit Diagnoses Not on filedocumented in this encounter
--- OUTSIDE RECORDS SUMMARY | 2024-03-24 10:06 | XMS_ITS | Encounter Summary ---
[place] [address] Care Team Providers Care Hotel Engineer Name Role Phone Cielo Goncalves MD Primary Care Provider [phone] Reason for Referral * Diagnostic Test (Routine) - Closed Specialty Diagnoses / Procedures Referred By Contac t Referred To Contact Cardiology Diagnoses History of cardiac arrhythmia Procedures Ziopatch 48 Hrs-15 Days Yusra Calabrese MD [facility] DR OBSTETRICS & [place] [address] [facility] [place] [address] Referral ID Status Reason Start Date Expiration Date V isits Requested Visits Authorized [id number] Closed Specialty Service Requested 05/04/2021 11/04/2021 1 1 * Diagnostic Test (Routine) - Closed Specialty Diagnoses / Procedures Referred By Contac t Referred To Contact Cardiology Diagnoses History of cardiac arrhythmia Procedures Luis Eopatch 48 Hrs-15 Days Yusra Calabrese MD [facility] OBSTETRICS & [place] [address] [facility] [place] [address] Referral ID Status Reason Start Date Expiration Date V isits Requested Visits Authorized [id number] Closed Specialty Service Requested 05/04/2021 11/04/2021 1 1 Reason for Visit * Auth/Cert Specialty Diagnoses / Procedures Referred By Contac t Referred To Contact Diagnoses Preeclampsia, severe Preeclampsia, severe Procedures C SECTION DELIVERY Referral ID Status Reason Start Date Expiration Date Visits Re quested Visits Authorized [id number] 1 1 Encounter Details Date Type Department Care Team (Latest Contact Info) Description 04/24/2021 11:20 PM EST - 05/04/2021 6:50 PM EST [place] [id number] Zara Olsen MD [facility] OBSTETRICS [place] [address] Avelina Tapia MD [facility] OBSTETRICS [place] [address] Severe pre-eclampsia in third trimester; History of [...] Edwar Dominguez Patient Age: 46 y.o. Language: Georgian Race: White Ethnicity: Not nor Admit date: 04/24/2021 Discharge date and time: 05/04/2021 Attending Physician: Zara Olsen MD Discharge Physician: Eduardo Sue MD Care Provider: [facility] [facility] Referring Hospital: n/a Follow-up Recommendations for Providers: -BP check on BP triage on POD#7 -routine follow up visit at 6 weeks at [facility] Inpatient Provider Contact Information: [facility] PERINATAL SPECIALIST Department, Discharge Diagnoses (Hospital Problems) and Secondary [...] on cHTN History of Presentation: Referring Hospital: [facility] Referring Provider: Dr. Rosaura Coto Initial Care Provider (if early referral or co-managed by [employer]): N/A ?? ID: Edwar Dominguez is a 46 y.o. at 33w4d gestation (by 11 week US) being admitted as a transfer from [facility] for preeclampsia with severe features superimposed on [...] discussion with Dr. Olsen, accepting MFM at [facility]. ?? At this time, Edwar is feeling ok. Her mouth is quite dry and she is asking for water. She reportssome nausea but has not vomited. She has been having some noticeable contractions since the start of the ambulance ride from [facility]. She denies headaches, vision changes, chest pain, [...] to Cardiology on 4A on discharge to fish bait picker the ziopatch. #Pre-Eclampsia with SF by BP [...] for the patient's : Prashant Dominguez Girl [[id number]] INFORMATION Prashant Dominguez 04/29/2021 9:49 AM by Lower Segment Transverse Sex: female Gestational Age: 34w1d Sells Measurements: Weight: 6 lb 1 oz (2750 [...] QTC Calculated (Bezet) 411 ms Calculated P [place] 49 degrees Calculated R [place] 2 degrees Calculated T [place] 24 degrees INTERPRETATION Normal sinus rhythm Possible Anterior infarct (cited on or before 25-APR-2021) Abnormal ECG When compared with ECG of 25-APR-2021 17:29, No significant change was found I personally reviewed the tracing and edited the fellows interpretation Confirmed by fellow Madhu Hall ([id number]) on 05/02/2021 3:01:30 PM Confirmed by MD Young Stanislav ([id number]) on 05/02/2021 6:14:43 PM Studies: none Pending [...] 30 tablet Refills: 2 vitamin 27 & [id number] 60 mg iron-1 mg Tab Take 1 [...] Phone 05/06/2021 10:00 AM LAURIE BAUER, MIKAL [facility] Arrive at: Laurie Bauer [phone] Future Orders Complete By Expires Maggy 48 Hrs-15 Days [[id number] CPT(R)] 05/02/2021 11/01/2021 Process Instructions: Scheduling Instructions: Questions: Does the patient have a pacemaker? If yes provide HI/LO settings: Apply for 7 or 14 days?: 14 Where will study be performed?: [facility] Durable Medical Equipment Order [EQ148 Custom] As directed Process Instructions: Scheduling Instructions: Comments: Edwar Dominguez [address] [place] [address] (home) Infant's : 04/29/21 Insurance: [place] Pay[place] Plan Address Payor Plan Phone Number Payor Plan Fax Number Effective Dates [address] 09/19/2020 - None Entered [facility] [address] Subscriber Name Subscriber Date Member ID EDWAR DOMINGUEZ 1975 [id number] [employer] # [phone] Symphony breast pump [id number] Length of need: [...] not provide sufficient milk for this baby. [facility] NPI #: [id number] DEPARTMENT [facility] [place] [facility] [place]ESS [place] MED[place] MEDICAL NECESSITY FORM (MNF) ORTHOTICS, PROSTHETICS, MEDICAL SUPPLIES & EQUIPMENT All claims for supplies and equipment require a written order. Orders must be signed by a physician, physician assistant brand manager, or nurse practitioner. All home health plans [...] or on other documentation submitted to the [facility] and DXC. The codes submitted to [facility] and DXC must matchthe description documented by the ordering provider. All orders must adhere to state and federal rules and regulations. [place] Medicaid Rules can be found online at [email or web address]. Section A: (must be completed or reviewed and signed by ordering provider) Beneficiary's name: Edwar Dominguez Medicaid ID#: Insurance: [place] Pay[place] Plan Address Payor Plan Phone Number Payor Plan Fax Number Effective Dates [facility] 888 09/19/2020 - None Entered [facility] [address] Subscriber Name Subscriber Date Member ID EDWAR DOMINGUEZ 1975 [id number] Diagnoses: Medical Necessity: /Lactating Mother- Z39.1 Breast [...] service: Is the beneficiary living in a longterm facility? Yes [ ] No[x] Is the [...] ___ ___ ___ ___ ___ ___ [facility] code(s) may be provided by the supplying provider when the ordering provider has includeda clear description of the required item(s). I CERTIFY THAT THE ITEM(S) PRESCRIBED ABOVE IS(ARE) A MEDICALLY NECESSARY PART OF THE COURSE OF TREATMENT AND NOT FOR CONVENIENCE, COMFORT, OR PRECAUTIONARY PURPOSES 5. Ordering provider's name & address: Please see ordering physician signature below - [facility], [address] [place] [phone] 6. Ordering provider's signature: Please see order signature below. Date signed: 04/30/21. 7. Ordering provider's Medicaid provider #: [id number] Phone#: [phone] See back of form for DME information [...] identified in the Provider Manual, available at: [email or web address]. For exceptions, an MNF must be kept on file by the DME supplier. Prior Authorization: The DME supplier must include a copy of an MNF with every Prior Authorization request. Fax the MNF and any other supporting documents to the [facility] at . Use of this [facility] Medical Necessity Form is recommended for all prior authorization requests to ensure timely processing. Medicaid may request a copy of the medical record upon audit. *INSTRUCTIONS FOR SECTIONS A & B* Section A must be completed or reviewed, signed, and dated by the ordering physician/physician assistant brand manager/nurse practitioner. Section B must be completed by [...] must appear on other documentation submitted to [facility] for PA and to [facility] for billing), medical necessity rationale, expected length of need (will be interpreted as months unless stated otherwise), and the number ofitems needed (for example: 2 bottles of sterile saline per month). NOTE: If the quantity ordered ismore than the number allowed (based on customary usage and as listed in the [facility] DME Restriction list, available at: [email or web address]/for-[email or web address]/qetgsoyx-nrddblgq-xtvmcdgxto), an explanation from the physician is required. [...] Referral to Home Health - at DISCHARGE [[id number] CPT(R)] As directed Process Instructions: Scheduling Instructions: DOCUMENTATION FOR VNA SERVICES (INCLUDING THOSE PATIENTS WITH MEDICARE COVERAGE REQUIRING HOME VNA SERVICES AND/OR HOSPICE SERVICES) PATIENT'S LOCATION: Edwar Dominguez : [address] [place] [phone] (home) Telephone Information: [place] Plan: [place] Member: [id number] Effective from: 09/19/2020 Subscriber: EDWAR DOMINGUEZ Guarantor: EDWAR DOMINGUEZ In discussion with the attending physician, it is certified that this patient is under their care and that they, or a Nurse Practitioner,Clinical Nurse specialist or Physician Cafeteria Table Attendant who is working directly with them, had [...] follows: HOME CARE ORDERS: HOME HEALTH AGENCY: [facility]. PHONE: [phone] FAX: [phone] RN orders: 1. Assess /postoperative recovery. 2. Assess full set of vital signs, including blood pressure. Please contact [facility] OB-DIRECT CHILL CASTER for blood pressure greater than 150mmHG/90mmHG. Need [...] changes will need to be obtained from: [facility] OBGYN Department, OR patient's PCP: MD D[address] [place] [address] All A agencies which cover the area of patient's residence have been reviewed, either verbally preethi writing, and patient/family have chosen the home health care agency noted. Questions: Agency name and contact information: [facility] Patient location post discharge: home What services are requested: Registered Nurse Start date: Responsible MD post discharge contact info: [facility] OBGYN Department, Discharge References/Attachments None documented [...] place, such as a locked cabinet or [employer]. Unused opioids (oxycodone, hydromorphone/Dilaudid, morphine, fentanyl, tramadol) [...] give you one. Call your doctor or ac/dc rewinder for: Seizure (call 911) Headache which isn't [...] prior to you follow up appointment. Your [facility] Provider can be reached during office hours at [facility] AFTER OFFICE HOURS for the travel registered nurse icu or ac/dc rewinder personnel clerks supervisor Provider electronic signature confirms that discharge instructions [...] 30 tablet 2 05/04/2021 vitamin 27 & rnbrgle-cjva-WO 60 mg iron-1 mg Tablet Take 1 [...] 05/04/2021 2:05 PM EST OFFICE OF CARE MANAGEMENT/chicken sexer Per OB team, patient will be discharged today and she said she will back to see her baby in the [facility] Saturday 05/06, so she'll get her BP check here and not with VNA. VNA notified. Mora Coto RN Case Manager [facility] and covering for Pedi/PICU/ICN [phone] Pager [phone] * Juan F García MD - 05/04/2021 [...] consulted in the interim. Bere Darling, AVA [phone] * Mora Levine RN - 05/02/2021 12:58 PM EST Per Resident MD, patient will not be discharging today. RNCM has made VNA referral and pended VNA orders, as patient had previously accepted VNA services per previous RNCM documentation. RNCM called [facility] PHONE: [phone] FAX: [phone] VNA anticipates being able to start care within 24- 48 hours of discharge, as well as the ability to do post- day 7 blood pressure check on Friday05/06/2021. * Mora Levine RN - 05/02/2021 12:33 PM EST DOCUMENTATION FOR VNA SERVICES (INCLUDING THOSE PATIENTS WITH MEDICARE COVERAGE REQUIRING HOME VNA SERVICES AND/OR HOSPICE SERVICES) PATIENT'S LOCATION: Edwar Dominguez [address] [place] [phone] (home) Telephone Information: [place] Plan: [place] Member: [id number] Effective from: 09/19/2020 Subscriber: EDWAR DOMINGUEZ Guarantor: EDWAR DOMINGUEZ ?? In discussion with the attending physician, it is certified that this patient is under their care and that they, or a Nurse Practitioner,Clinical Nurse specialist or Physician Cafeteria Table Attendant who is working directly with them, had [...] follows: HOME CARE ORDERS: HOME HEALTH AGENCY: [facility] [employer]. PHONE: [phone] FAX: [phone] RN orders: 1. Assess /postoperative recovery. 2. Assess full set of vital signs, including blood pressure. Please contact [facility] OB-DIRECT CHILL CASTER for blood pressure greater than mmHG/mmHG. Need [...] changes will need to be obtained from: [facility] OBGYN Department, OR patient's PCP: MD D[address] [place] [address] All VNA agencies which cover the area [...] ready for discharge tomorrow. MD Chris * Elba León RN - 05/01/2021 7:01 PM EST [...] 04/30/2021 9:32 AM EST OFFICE OF CARE MANAGEMENT/chicken sexer Patient needs hospital grade breast pump. Patient given [facility] grade rental pump number [id number] from [employer]. Rental approved by [facility] at [facility]. Pump rental is covered by patient's insurance for 3 months. Patient has accepted [facility] referral. WIC referral sent (from 's chart) to add both and [place] to [place]. Mora Coto RN, CM Edwar Dominguez 1975 [address] [facility] [phone] (home) Infant's : 04/29/21 Insurance: [place] Plan Address Payor Plan Phone Number Payor Plan Fax Number Effective Dates [address] 09/19/2020 - None Entered [facility] [address] Subscriber Name Subscriber Date Member ID EDWAR DOMINGUEZ 1975 [id number] [employer] # [phone] Symphony breast pump [id number] Length of need: [...] not provide sufficient milk for this baby. [facility] NPI #: [id number] DEPARTMENT [facility] [place]ESS [place] MEDICAL NECESSITY FORM (MNF) ORTHOTICS, PROSTHETICS, MEDICAL SUPPLIES & EQUIPMENT All claims for supplies and equipment require a written order. Orders must be signed by a physician, physician assistant brand manager, or nurse practitioner. All home health plans [...] Medicaid Rules can be found online at [email or web address]. Section A: (must be completed or reviewed and signed by ordering provider) Beneficiary's name: Edwar Dominguez Medicaid ID#: Insurance: [place] Pay[place] Plan Address Payor Plan Phone Number Payor Plan Fax Number Effective Dates [address] 09/19/2020 - None Entered [facility] [address] Subscriber Name Subscriber Date Member ID EDWAR DOMINGUEZ 1975 [id number] Diagnoses: Medical Necessity: /Lactating Mother- Z39.1 Breast [...] service: Is the beneficiary living in a longterm facility? Yes [ ] No[x] Is the [...] Please see ordering physician signature below - [facility], [address] [place] [address] 6. Ordering provider's signature: Please see order signature below. Date signed: 04/30/21. 7. Ordering provider's Medicaid provider #: [id number] Phone#: [phone] See back of form for DME information [...] identified in the Provider Manual, available at: [email or web address]. For exceptions, an MNF must be kept on file by the DME supplier. Prior Authorization: The DME supplier must include a copy of an MNF with every Prior Authorization request. Fax the MNF and any other supporting documents to the [facility] at . Use of this [facility] Medical Necessity Form is recommended for all prior authorization requests to ensure timely processing. Medicaid may request a copy of the medical record upon audit. *INSTRUCTIONS FOR SECTIONS A & B* Section A must be completed or reviewed, signed, and dated by the ordering physician/physician assistant brand manager/nurse practitioner. Section B must be completed by [...] must appear on other documentation submitted to [facility] for PA and to [facility] for billing), medical necessity rationale, expected length of need (will be interpreted as months unless stated otherwise), and the number ofitems needed (for example: 2 bottles of sterile saline per month). NOTE: If the quantity ordered ismore than the number allowed (based on customary usage and as listed in the [facility] DME Restriction list, available at: [email or web address]/for-[email or web address]/axwkoofw-zdmnfdky-usvxmmmekf), an explanation from the physician is required. [...] number. DME Medicaid provider number. Referral to [facility] requested by Edwar Jem. She has given verbal permission to electronically fax necessary demographic information for patient (mother) and infant (including name, address, phone number), current [facility] enrollment status and/or current Medicaid status. Upon receipt of the referral information, [facility] customer response representative should attempt to contact parents to set up an intake plan. [facility] [phone] (M) Mother's Name: Edwar Dominguez Mother's Date of : 75 Infant's Legal Name: Paige Dominguez 's Date of : 04/29/21 Weight: 2.75kg Length: 45.5cm ?? Anticipated Discharge Date: Mother: 05/01/21; Infant: To be determined Current [facility] Status: Mother would like herself and her baby enrolled in [facility]. Have Medicaid (Yes or No)?: Yes The above information electronically routed to: [place], [facility], Attn: Jesi Velasquez RN or Alternate Intake Tool Marker. Fax #: [phone] * Juan F García MD - 04/30/2021 [...] week US) admitted as a transfer from [facility]??for preeclampsia with severe features??superimposed on cHTN, now [...] IV Hydralazine at OSH). UPCR 0.1 at [facility]. ?? On 200 labetalol BID ?? Discussed [...] and LVEF 67% ?? Records reviewed in [facility]'s EMR by Dr. Newman. ?? Anesthesia aware [...] week US) admitted as a transfer from [facility]??for preeclampsia with severe features??superimposed on cHTN, now [...] IV Hydralazine at OSH). UPCR 0.1 at [facility]. ?? On 200 labetalol BID ?? Discussed [...] and LVEF 67% ?? Records reviewed in [facility]'s EMR by Dr. Newman. ?? Anesthesia aware [...] week US) admitted as a transfer from [facility]??for preeclampsia with severe features??superimposed on chronic hypertension. [...] were not included. Infiltration/Extravasation Scale Edwar Dominguez [id number] BP05/BP05-A Infiltration appearance:EDEMA, no pain Infiltration harm [...] measuring tape and identifier in the photo) SUPERVISOR GRIPS CARING FOR THIS PATIENT WILL CONTINUE TO [...] were not available. Venecia Newman MD * PinsonforkBess richardson Aris - 04/28/2021 10:54 AM EST Images from the original note were not included. Obstetrical Antepartum Progress Note Patient ID:Edwar Dominguez is a 46 y.o. at 34w0d gestation (by 11 week US) being admitted as atransfer from [facility] for preeclampsia with severe features superimposed on [...] separate daily NST note. Detailed Morphology US ([facility]) Date: 02/06/2021 GA at US: 23w 3d [...] IV Hydralazine at OSH). UPCR 0.1 at [facility]. Despite chronic kidney disease and chronic hypertension, [...] arrhythmia with asystole during back surgery at [facility] in 2008. ? ECG as baseline 04/25 showed NSR with an age indeterminate anterior infarct ? Echocardiogram performed 04/26 showed normal valves, trace MR, and LVEF 67% ? Records reviewed in [facility]'s EMR by Dr. Newman. 6. Status ? [...] week US) being admitted as atransfer from [facility] for preeclampsia with severe features superimposed on [...] separate daily NST note. Detailed Morphology US ([facility]) Date: 02/06/2021 GA at US: 23w 3d [...] superimposed on chronic hypertension: UPCR 0.1 at [facility]. Despite chronic kidney disease and chronic hypertension, [...] from patient's PCP Dr. Cielo Goncalves in [facility] 6. Status ? Daily NST ? [...] US) being admitted as a transfer from [facility] for preeclampsia with severe features superimposed on [...] US) being admitted as a transfer from [facility] for preeclampsia with severe features superimposed on [...] with the resident for the entire procedure. UJAN F GARCÍA MD * Juan F García MD - 04/26/2021 9:44 AM EST Obstetrical Antepartum Progress Note Patient ID:Edwar Dominguez is a 46 y.o. at 33w4d gestation (by 11 week US) being admitted as atransfer from [facility] for preeclampsia with severe features superimposed on [...] separate daily NST note. Detailed Morphology US ([facility]) Date: 02/06/2021 GA at US: 23w 3d [...] superimposed on chronic hypertension: UPCR 0.1 at [facility]. Despite chronic kidney disease and chronic hypertension, [...] from patient's PCP Dr. Cielo Goncalves in [facility] 6. Status ? Daily NST ? [...] US) being admitted as a transfer from [facility] for preeclampsia with severe features superimposed on [...] week US) being admitted as atransfer from [facility] for preeclampsia with severe features superimposed on [...] separate daily NST note. Detailed Morphology US ([facility]) Date: 02/06/2021 GA at US: 23w 3d [...] superimposed on chronic hypertension: UPCR 0.1 at [facility]. Despite chronic kidney disease and chronic hypertension, [...] from patient's PCP Dr. Cielo Goncalves in [facility] 6. Status ? Daily NST ? [...] PM EST Obstetrical Admission Note Referring Hospital: [facility] Referring Provider: Dr. Rosaura Coto Initial Care Provider (if early referral or co-managed by [employer]): N/A ID: Edwar Dominguez is a 46 y.o. at 33w4d gestation (by 11 week US) being admitted as a transfer from [facility] for preeclampsia with severe features superimposed on [...] discussion with Dr. Olsen, accepting MFM at [facility]. At this time, Edwar is feeling ok. Her mouth is quite dry and she is asking for water. She reportssome nausea but has not vomited. She has been having some noticeable contractions since the start of the ambulance ride from [facility]. She denies headaches, vision changes, chest pain, [...] aspriso, no flares since 2019, GI in [facility] Past Surgical History: Procedure Laterality Date [...] 125, Variability: moderate, Accels: yes, Decels: none, [place]: q3-5 Lab Results Component Value Date ABORH [...] 04/25 at and pending Detailed Morphology US ([facility]) Date: 02/06/2021 GA at US: 23w 3d [...] superimposed on chronic hypertension: UPCR 0.1 at [facility]. Despite chronic kidney disease and chronic hypertension, [...] and discussed with Dr. Avelina Tapia, attending PERINATAL SPECIALIST. Leti Guerrero MD PGY-3 04/25/2021 46 year old presents at 33w4d with CHTN and insulin requiring GDM presents in transfer withnew symptoms of fatgue/malaise and nausea in conjunction with severe elevations of blood pressure requiring IV tx at [facility]. On evaluation here, pt feel tired and [...] feeding sessions. * Plan of Care - Susana Murillo RN - 05/02/2021 7:03 PM EST [...] to follow closely Mary Iniguez RN, IBCLC [facility] * Note - Petrona Chang RN [...] weight loss: 0% MATERNAL INFO: Edwar Dominguez [id number] G 8 P 5 FOGuillermina Mcdonald [...] session. Nipple Exam : Normal everted Color: [place] Compressible: Yes Trauma: Edwar reports no nipple [...] 3 hours, awaken as needed Optimal positioning: Ffpv-[id number]-cyjaml positioning Rxbt-wv-ocoej technique Nutritive vs non-nutritive sucking Importance of [...] same time and use a hospital grade Clipboardhony breast pump for pumping sessions. Breast massage and hand expression before and during pumping sessions will help with milk release Edwar may apply moist heat to her breasts a few minutes prior to pumping and ice packs after pumping for about ten minutes as needed to help relieve breast engorgement. [place] oil to nipples prior to pumping Frequent and prolonged maternal-infant skin to skin contact Feeding Plan: Edwar is hoping to breast feed Close support and follow up Written contact information for [facility] prn Pamphlets Provided Providing breast milk [...] education and recommendations. Petrona Chang RN, IBCLC [facility] * Plan of Care - Arlene [...] for the patient's : Jem Baby Girl [[id number]] DELIVERY SUMMARY FOR Baby Raina Dominguez (please [...] 04/29/21 0828 - 04/29/21 1117 None Delivery (Sells) Delivery Date: 04/29/21 Delivery Time: 9:49:00 AM Sex: Female Presentation: Transverse Position: Left Attempted ?: No Delivery Type: Delivery Type (Specific): Lower Segment Transverse Major Indications - : malpresentation Shoulder Dystocia Shoulder dystocia present?: No Delivery Information Delivery Location: [place] Delivering Clinician: Kilo Dodge MD ICN Staff Present: Yes Other Personnel: Provider Role Miguelina Estrella, district traffic chief Nurse Kilo Dodge MD Manufacturing Cost Estimator Charleen Heredia, district traffic chief Assist Mandie Aguilera MD Resident Viridiana Wharton [...] catheter, bulb syringe Resuscitation Comment: [facility], with weak cry, no DCC. [...] Wharton MD - 04/29/2021 9:42 AM EST [facility] Operative Note Patient Name: Edwar Dominguez : [id number] MR#: [id number] Case Date: 04/29/2021 Surgeon: Surgeon(s) and Role: [...] one single area that required a single [id number]. Examination of the pelvis revealed normal uterus, [...] intra-op Intra-operative medications: IV Pitocin [facility] was present and participated for [...] 1:51 PM * Initial Assessments - Mora Coto RN - 04/27/2021 2:39 PM EST Office of Care Management Initial Assessment MORA COTO RN reviewed record and discussed patient with Care Team. Source of Information: Team, medical record, and spoke with patient by phone. Introduced self/reviewed role; services accepted. Plans to name baby: Paige Dominguez Reason for Hospitalization: 46 y.o.?? at 33w6d??gestation (by 11 week US)??being admitted asa transfer from [facility]??for preeclampsia with severe features??superimposed on chronic hypertension. Last COVID test date and time: Lab Results Component Value Date [id number] Not Detected 04/24/2021 Past medical History: Past Medical History: Diagnosis Date ??? C. difficile colitis ??? CKD (chronic kidney disease) 2020 creatinine 1.18 ??? Hypertension 2006 labetalol now, metprolol, losartan, spironolactone preconception ??? Insulin resistance ??? Ulcerative colitis aspriso, no flares since 2019, GI in [facility] Hospitalizations Within the Past 30 Days: [...] need breast pump Home Address (confirmed) as: [address] [place] [id number] Social & Family Supports: Patient's partner, Harry, is employed as a poultry farmworker. They have a stable home, and have clothing/items. They have local support. Community Resources being provided currently: Patient given information about [employer]. Although she will be primarily travelling back and forth to home while her baby is in the ICN, she states she may use [employer] some of the time. She is also [...] Listed Primary Care Provider: Cielo Goncalves MD [phone], Infant's PCP is undecided. Patient/Caregiver Goals of [...] 11 week US)??[facility]for preeclampsia with severe features??superimposed on chronic hypertension. Patient with no apparent RNCM/SW needs at this time. No housing, transportation, insurance, resources concerns identified at this time. Supports in place to achieve a safe post-hospital transition. No identified barriers to accessing necessary care and/or follow-up after discharge Plan: Patient to discharge home or to [facility] when medically stable. Follow up with [facility]. No identified barriers to accessing necessary care and/or follow-up after discharge. A member of the Care Management team will continue to monitor progress, follow for continuity of care and assist with transition of care planning. MORA COTO RN Case Operations/Dispatch of Care Management Pager: [phone] Ext: [phone] * Consult Note - Bright Waller MD [...] 33 weeks gestation and admitted to the [facility] due to pre-Eclampsia in the setting of [...] GLUCOSE Routine 04/28/2021 11:06 AM EST US DIRECT CHILL CASTER (SYNC) Routine 04/28/2021 10:51 AM EST HEMOGRAM [...] 04/24/2021 11:59 PM EST RAPID COVID-19 PCR ([facility]) Routine 04/24/2021 11:59 PM EST HC GROUP B STREP SCREEN Routine 04/25/19 11:59 PM EST [place] Fallopian Tube, (18858) @ DELIVERY (WRVU 16.13) documented in this encounter Results * Ziopatch 48 Hrs-15 Days (05/04/2021 4:36 PM EST) Anatomical Region Laterality Modality Other Narrative 05/29/2021 1:03 PM EDT [facility] ? Zio Patch? Ambulatory Cardiac Event Monitor [...] (Bezet) 411 ms MUSE SYSTEM Calculated P [place] 49 degrees MUSE SYSTEM Calculated R [place] 2 degrees MUSE SYSTEM Calculated T [place] 24 degrees MUSE SYSTEM INTERPRETATION Normal sinus rhythm Possible Anterior infarct (cited on or before 25-APR-2021) Abnormal ECG When compared with ECG of 25-APR-2021 17:29, No significant change was found I personally reviewed the tracing and edited the fellows interpretation Confirmed by fellow Madhu Hall ([id number]) on 05/02/2021 3:01:30 PM Confirmed by MD Hector, Isiah ([id number]) on 05/02/2021 6:14:43 PM MUSE SYSTEM 05/02/2021 11:1 4 AM EST 05/02/2021 6:14 PM EST Zara Olsen MD ECG ORDERABLES MUSE SYSTEM * (ABNORMAL) Differential, Automated (05/02/2021 4:35 AM EST) Neutrophil % 68.5 % [facility] Neutrophil Absolute 7.88(H) 1.70 - 6.10 x10(3)/mc L [facility] Lymph % 18.2 % [facility] Lymphocytes Abs 2.1 0.9 - 3.2 x10(3)/mc L [facility] Monocyte % 6.5 % [facility] Monocyte Abs 0.8 0.3 - 0.9 x10(3)/ L [facility] Eos % 1.4 % [facility] Eosinophils Abs 0.2 0.0 - 0.4 x10(3)/[facility] Basophil % 0.4 % [facility] Baso Absolute 0.0 0.0 - 0.1 x10(3)/[facility] Immature Gran % 5.00 % [facility] Comment: Immature granulocytes(IG's)percentage and absolute count will include metamyelocytes, myelocytes, and promyelocytes. Blood smears from CBCs yielding IG's will be scanned manually for concordance. If this scan disagrees with the automated IG or if promyelocytes are noted, a manual differential will be performed. Immature Gran Absolute 0.58(H) 0.00 - 0.04 x10(3)/[facility] Blood 05/02/2021 4:35 AM EST 05/02/2021 4:43 AM EST Narrative Resulting Agency Comment Spec In Lab Mandie Aguilera MD HEMATOLOGY ORDERABLE S [facility] [place] [address] * (ABNORMAL) Hemogram (05/02/2021 4:35 AM EST) White Blood Cell 11.5(H) 4.0 - 9.5 x10(3)/[facility] Red Blood Cell 2.70(L) 4.00 - 5.21 x10(6)/[facility] Hemoglobin 8.2(L) 11.7 - 15.5 g/dL [facility] Hematocrit 24.8(L) 35.7 - 45.8 % [facility] Mean Cell Volume 91.9 82.6 - 94.4 fL [facility] Mean Cell Hemoglobin 30.4 27.1 - 32.0 pg [facility] Mean Cell Hemoglobin Concentration 33.1 31.7 - 35.0 g/dL [facility] Platelet 231 145 - 357 x10(3)/mc L [facility] RDW Standard Deviation 49.3(H) 37.0 - 46.0 fL [facility] RDW coefficient of variation 14.9(H) 11.5 - 14.1 % [facility] Mean Platelet Volume 8.8 7.6 - 12.9 fL [facility] NRBC% auto 0.2 % [facility] NRBC Absolute 0.020(H) 0.000 - 0.000 x10(3)/mc L [facility] Blood 05/02/2021 4:35 AM EST 05/02/2021 4:43 AM EST Narrative Resulting Agency Comment Spec In Lab Mandie Aguilrea MD HEMATOLOGY ORDERABLE S Performing Organization Address City/State/[facility] Co de Phone Number [facility] [place] [phone] * Creatinine (05/02/2021 4:35 AM EST) Creatinine 0.70 0.70 - 1.20 mg/dL [facility] Est Glomerular Filtration Rate 104 >=60 mL/min/1. 73 m?? [facility] Comment: This patient? [...] Olsen MD CHEMISTRY ORDERABLES Performing Organization Address City/[facility]/ZIP Co de Phone Number [facility] [place] [address] * Aspartate Aminotransferase (05/02/2021 4:35 AM EST) Aspartate Aminotransferase 20 0 - 30 unit/L [facility] Blood 05/02/2021 4:35 AM EST 05/02/2021 4:43 AM EST Narrative Resulting Agency Comment Spec In Lab Zara Olsen MD CHEMISTRY ORDERABLES Performing Organization Address [facility] Co de Phone Number [facility] [place] [address] * (ABNORMAL) Differential, Automated (05/01/2021 3:15 AM EST) Pathologist [facility] Neutrophil % 77.0 % [facility] Neutrophil Absolute 10.81(H) 1.70 - 6.10 x10(3)/mc L [facility] Lymph % 13.3 % [facility] Lymphocytes Abs 1.9 0.9 - 3.2 x10(3)/mc L [facility] Monocyte % 6.4 % [facility] Monocyte Abs 0.9 0.3 - 0.9 x10(3)/mc L [facility] Eos % 0.9 % [facility] Eosinophils Abs 0.1 0.0 - 0.4 x10(3)/mc L [facility] Basophil % 0.2 % [facility] Baso Absolute 0.0 0.0 - 0.1 x10(3)/mc L [facility] Immature Gran % 2.20 % [facility] Comment: Immature granulocytes(IG's)percentage and absolute count will include metamyelocytes, myelocytes, and promyelocytes. Blood smears from CBCs yielding IG's will be scanned manually for concordance. If this scan disagrees with the automated IG or if promyelocytes are noted, a manual differential will be performed. Immature Gran Absolute 0.31(H) 0.00 - 0.04 x10(3)/mc L [facility] Blood 05/01/2021 3:15 AM EST 05/01/2021 3:44 AM EST Narrative Resulting Agency Comment Spec In Lab Mandie Aguilera MD HEMATOLOGY ORDERABLE S [facility] [place] [address] * (ABNORMAL) Hemogram (05/01/2021 3:15 AM EST) White Blood Cell 14.0(H) 4.0 - 9.5 x10(3)/mc L [facility] Red Blood Cell 2.77(L) 4.00 - 5.21 x10(6)/mc L [facility] Hemoglobin 8.5(L) 11.7 - 15.5 g/dL [facility] Hematocrit 25.0(L) 35.7 - 45.8 % [facility] Mean Cell Volume 90.3 82.6 - 94.4 fL [facility] Mean Cell Hemoglobin 30.7 27.1 - 32.0 pg [facility] Mean Cell Hemoglobin Concentration 34.0 31.7 - 35.0 g/dL [facility] Platelet 229 145 - 357 x10(3)/mc L [facility] RDW Standard Deviation 49.2(H) 37.0 - 46.0 fL [facility] RDW coefficient of variation 15.0(H) 11.5 - 14.1 % [facility] Mean Platelet Volume 9.0 7.6 - 12.9 fL [facility] NRBC% auto 0.1 % [facility] NRBC Absolute 0.020(H) 0.000 - 0.000 x10(3)/mc L [facility] Blood 05/01/2021 3:15 AM EST 05/01/2021 3:44 AM EST Narrative Resulting Agency Comment Spec In Lab Mandie Aguilera MD HEMATOLOGY ORDERABLE S [facility] [place] [address] * Creatinine (05/01/2021 3:15 AM EST) Creatinine 0.76 0.70 - 1.20 mg/dL [facility] Est Glomerular Filtration Rate 94 >=60 mL/min/1. 73 m?? [facility] Comment: This patient? [...] Olsen MD CHEMISTRY ORDERABLES Performing Organization Address City/[facility]/ZIP Co de Phone Number [facility] [place] [address] * Aspartate Aminotransferase (05/01/2021 3:15 AM EST) Aspartate Aminotransferase 18 0 - 30 unit/L [facility] Blood 05/01/2021 3:15 AM EST 05/01/2021 3:44 AM EST Narrative Resulting Agency Comment Spec In Lab Zara Olsen MD CHEMISTRY ORDERABLES [facility] [place] [address] * POCT Glucose (04/30/2021 7:58 PM EST) Glucose, POC 140 65 - 199 mg/dL [facility] Comment: Supplemental ranges: <140 mg/dL before meals <180 mg/dL all other times of the day Blood 04/30/2021 7:58 PM EST 04/30/2021 7:58 PM EST Zara Olsen MD POINT OF CARE TEST O RDERAJENIFFER Performing Organization Address City/[facility]/ZIP Co de Phone Number [facility] [place] [address] * POCT Glucose (04/30/2021 9:53 AM EST) Glucose, POC 143 65 - 199 mg/dL [facility] Comment: Supplemental ranges: <140 mg/dL before meals <180 mg/dL all other times of the day Blood 04/30/2021 9:53 AM EST 04/30/2021 9:53 AM EST Zara Olsen MD POINT OF CARE TEST O JOHN Performing Organization Address City/[facility]/ZIP Co de Phone Number [facility] [place] [address] * POCT Glucose (04/30/2021 5:52 AM EST) Glucose, POC 139 65 - 199 mg/dL [facility] Comment: Supplemental ranges: <140 mg/dL before meals <180 mg/dL all other times of the day Blood 04/30/2021 5:52 AM EST 04/30/2021 5:52 AM EST Zara Olsen MD POINT OF CARE TEST O RDERAJENIFFER Performing Organization Address City/[facility]/ZIP Co de Phone Number [facility] [place] [address] * (ABNORMAL) Differential, Automated (04/30/2021 5:10 AM EST) Neutrophil % 81.6 % [facility] Neutrophil Absolute 11.67(H) 1.70 - 6.10 x10(3)/[facility] Lymph % 10.7 % [facility] Lymphocytes Abs 1.5 0.9 - 3.2 x10(3)/[facility] Monocyte % 5.9 % [facility] Monocyte Abs 0.8 0.3 - 0.9 x10(3)/[facility] Eos % 0.3 % [facility] Eosinophils Abs 0.0 0.0 - 0.4 x10(3)/[facility] Basophil % 0.1 % [facility] Baso Absolute 0.0 0.0 - 0.1 x10(3)/[facility] Immature Gran % 1.40 % [facility] Comment: Immature granulocytes(IG's)percentage and absolute count will include metamyelocytes, myelocytes, and promyelocytes. Blood smears from CBCs yielding IG's will be scanned manually for concordance. If this scan disagrees with the automated IG or if promyelocytes are noted, a manual differential will be performed. Immature Gran Absolute 0.20(H) 0.00 - 0.04 x10(3)/[facility] Blood 04/30/2021 5:10 AM EST 04/30/2021 5:18 AM EST Narrative Resulting Agency Comment Spec In Lab Leti Guerrero MD HEMATOLOGY ORDERABLE S [facility] [place] [address] * (ABNORMAL) Hemogram (04/30/2021 5:10 AM EST) White Blood Cell 14.3(H) 4.0 - 9.5 x10(3)/[facility] Red Blood Cell 2.87(L) 4.00 - 5.21 x10(6)/ L [facility] Hemoglobin 8.8(L) 11.7 - 15.5 g/dL [facility] Hematocrit 25.8(L) 35.7 - 45.8 % [facility] Mean Cell Volume 89.9 82.6 - 94.4 fL [facility] Mean Cell Hemoglobin 30.7 27.1 - 32.0 pg [facility] Mean Cell Hemoglobin Concentration 34.1 31.7 - 35.0 g/dL [facility] Platelet 226 145 - 357 x10(3)/[facility] RDW Standard Deviation 48.7(H) 37.0 - 46.0 [facility] RDW coefficient of variation 15.1(H) 11.5 - 14.1 % [facility] Mean Platelet Volume 9.0 7.6 - 12.9 [facility] NRBC% auto 0.0 % [facility] NRBC Absolute 0.000 0.000 - 0.000 x10(3)/[facility] Blood 04/30/2021 5:10 AM EST 04/30/2021 5:18 AM EST Narrative Resulting Agency Comment Spec In Lab Leti Guerrero MD HEMATOLOGY ORDERABLE S [facility] [place] [address] * Creatinine (04/30/2021 5:10 AM EST) Creatinine 0.78 0.70 - 1.20 mg/dL [facility] Est Glomerular Filtration Rate 91 >=60 mL/min/1. 73 m?? [facility] Comment: This patient? [...] Olsen MD CHEMISTRY ORDERABLES Performing Organization Address [facility]/ZIP Co de Phone Number [facility] [place] [address] * Aspartate Aminotransferase (04/30/2021 5:10 AM EST) Aspartate Aminotransferase 24 0 - 30 unit/L [facility] Blood 04/30/2021 5:10 AM EST 04/30/2021 5:18 AM EST Narrative Resulting Agency Comment Spec In Lab Zara Olsen MD CHEMISTRY ORDERABLES Performing Organization Address [facility] Co de Phone Number [facility] [place] [address] * (ABNORMAL) Hemogram (04/29/2021 2:08 PM EST) White Blood Cell 18.7(H) 4.0 - 9.5 x10(3)/mc L [facility] Red Blood Cell 3.35(L) 4.00 - 5.21 x10(6)/mc L [facility] Hemoglobin 10.2(L) 11.7 - 15.5 g/dL [facility] Hematocrit 30.2(L) 35.7 - 45.8 % [facility] Mean Cell Volume 90.1 82.6 - 94.4 fL [facility] Mean Cell Hemoglobin 30.4 27.1 - 32.0 pg [facility] Mean Cell Hemoglobin Concentration 33.8 31.7 - 35.0 g/dL [facility] Platelet 268 145 - 357 x10(3)/mc L [facility] RDW Standard Deviation 47.9(H) 37.0 - 46.0 fL [facility] RDW coefficient of variation 14.8(H) 11.5 - 14.1 % [facility] Mean Platelet Volume 9.1 7.6 - 12.9 fL [facility] NRBC% auto 0.1 % [facility] NRBC Absolute 0.020(H) 0.000 - 0.000 x10(3)/mc L [facility] Blood 04/29/2021 2:08 PM EST 04/29/2021 2:25 PM EST Narrative Resulting Agency Comment Spec In Lab Zara Olsen MD HEMATOLOGY ORDERABLE S Performing Organization Address City/[facility]/ZIP Co de Phone Number [facility] [address] * Specimen to Pathology (04/29/2021 11:02 AM EST) AP Specimen 04/29/2021 11:0 2 AM EST 04/29/2021 11:02 AM EST Narrative [facility] - 04/29/2021 11:02 AM EST Specimen requisition ordered. ??Separate Pathology report to follow Zara Olsen MD PATHOLOGY/CYTOLOGY O JOHN Performing Organization Address City/[facility]/ZIP Co de Phone Number [facility] [place] [address] * Specimen to Pathology (04/29/2021 11:02 AM EST) AP Specimen 04/29/2021 11:0 2 AM EST 04/29/2021 11:02 AM EST Narrative [facility] - 04/29/2021 11:02 AM EST Specimen requisition ordered. ??Separate Pathology report to follow Zara Olsen MD PATHOLOGY/CYTOLOGY O RDERABLES [facility] [place] [address] * Surgical Pathology Report (04/29/2021 9:51 AM EST) Final Diagnosis [id number] ? Location: ; 05; A The signing [...] Busby Verified: ??05/07/2021 12:33 ??Pathologist Performed at: ??-[facility] Dept. [place], [place], [place] SPECIMEN(S) SUBMITTED A - placenta, placenta [...] 100% marginal, ? - Color and Clarity: [place]-red and translucent. Cord: ? - Size: 41.5 x 1.2 cm. ? - Number of Vessels: Three. ? - Insertion site: Paracentral. Surface: ? - Color and Clarity: [place]-blue and translucent. Maternal Surface: Focally disrupted but appears complete well formed cotyledons and scant loosely adherent blood clot. Parenchyma: Boggy. Sections/Processi ng: Tool Marker sections in 7 cassettes as follows: ?A1: ??Membrane roll ?A2: ??Proximal and distal cord ?A3-A4: ??Full thickness parenchyma ?A5-A6: ??Full thickness parenchyma, bisected ?A7: ??Accessory lobe B - Labeled/Fixative: Bilateral fallopian tubes, formalin. Tissue Description: Intact, bilateral salpingectomy. . SPECIMEN PROCESSING Fallopian Tube 1: 11.7 x 0.6 cm, fimbriated. Fallopian Tube 2: 11.0 x 0.6 cm, fimbriated. Sections/Processi ng: Tool Marker sections in 4 cassettes as follows: ?B1: ??Fallopian tube 1 fimbria ?B2: ??Fallopian tube 1 cross-sections ?B3: ??Fallopian tube 2 fimbria ?B4: ??Fallopian tube 2 cross-sections ??ajw 05/07/2021 12:33 PM EDT [facility] TISSUE SPECIMEN FROM PLACENTA / Unknown 04/29/2021 9:51 AM EST 04/29/2021 9:51 AM EST False Vocal Cords, Bilateral 04/29/2021 9:51 AM EST 04/29/2021 9:51 AM EST Mandie Aguilera MD PATHOLOGY/CYTOLOGY O RDERABLES [facility] [place] [address] * (ABNORMAL) Magnesium (04/29/2021 8:50 AM EST) [...] In Lab Mandie Aguilera MD CHEMISTRY ORDERABLES [facility] [place] [address] * (ABNORMAL) Comprehensive metabolic panel (non-fasting) (04/29/2021 8:50 AM EST) Glucose 111 65 - 199 mg/dL [facility] Comment:Diabetes: >=200 mg/d L plus symptoms Blood Urea Nitrogen 13 8 - 18 mg/dL [facility] Creatinine 0.68(L) 0.70 - 1.20 mg/dL [facility] Sodium 130(L) 135 - 145 mmol/L [facility] Potassium 4.0 3.5 - 5.0 mmol/L [facility] Comment: Please note: ??Patients with WBC >100,000 may have falsely elevated Potassium levels. ??For accurate Potassium quantification in these patients send serum separator tube (gold top) for subsequent determinations. ??Contact the Clinical Chemistry Laboratory if there are any questions. Chloride 101 98 - 107 mmol/L [facility] Carbon Dioxide 16(L) 22 - 31 mmol/L [facility] Anion Gap 13 5 - 15 mmol/L [facility] Calcium 7.5(L) 8.5 - 10.5 mg/dL [facility] Comment:result rechecked-ruth Protein, Total 6.9 6.1 - 8.0 g/dL [facility] Albumin 3.6 3.2 - 5.2 g/dL [facility] Aspartate Aminotransferase 21 0 - 30 unit/L [facility] Alanine Aminotransferase 28 0 - 30 unit/L [facility] Alkaline Phosphatase 99 35 - 105 unit/L [facility] Bilirubin, Total 0.4 0.2 - 1.3 mg/dL [facility] Est Glomerular Filtration Rate 105 >=60 mL/min/1. 73 m?? [facility] Comment: This patient? [...] In Lab Mandie Aguilera MD CHEMISTRY ORDERABLES [facility] [place] [address] * (ABNORMAL) Differential, Automated (04/29/2021 8:50 AM EST) Neutrophil % 81.3 % [facility] Neutrophil Absolute 11.57(H) 1.70 - 6.10 x10(3)/mc L [facility] Lymph % 10.2 % [facility] Lymphocytes Abs 1.4 0.9 - 3.2 x10(3)/mc L [facility] Monocyte % 5.3 % [facility] Monocyte Abs 0.8 0.3 - 0.9 x10(3)/mc L [facility] Eos % 0.3 % [facility] Eosinophils Abs 0.0 0.0 - 0.4 x10(3)/mc L [facility] Basophil % 0.2 % [facility] Baso Absolute 0.0 0.0 - 0.1 x10(3)/mc L [facility] Immature Gran % 2.70 % [facility] Comment: Immature granulocytes(IG's)percentage and absolute count will include metamyelocytes, myelocytes, and promyelocytes. Blood smears from CBCs yielding IG's will be scanned manually for concordance. If this scan disagrees with the automated IG or if promyelocytes are noted, a manual differential will be performed. Immature Gran Absolute 0.39(H) 0.00 - 0.04 x10(3)/mc L [facility] Blood No Charge / Unknown 04/29/2021 8:50 AM EST 04/29/2021 9:00 AM EST Narrative Resulting Agency Comment Spec In Lab Mandie Aguilera MD HEMATOLOGY ORDERABLE S [facility] [place] [address] * (ABNORMAL) Hemogram (04/29/2021 8:50 AM EST) White Blood Cell 14.2(H) 4.0 - 9.5 x10(3)/mc L [facility] Red Blood Cell 3.86(L) 4.00 - 5.21 x10(6)/mc L [facility] Hemoglobin 11.5(L) 11.7 - 15.5 g/dL [facility] Hematocrit 34.3(L) 35.7 - 45.8 % [facility] Mean Cell Volume 88.9 82.6 - 94.4 fL [facility] Mean Cell Hemoglobin 29.8 27.1 - 32.0 pg [facility] Mean Cell Hemoglobin Concentration 33.5 31.7 - 35.0 g/dL [facility] Platelet 297 145 - 357 x10(3)/mc L [facility] RDW Standard Deviation 47.5(H) 37.0 - 46.0 fL [facility] RDW coefficient of variation 15.0(H) 11.5 - 14.1 % [facility] Mean Platelet Volume 9.2 7.6 - 12.9 fL [facility] NRBC% auto 0.0 % [facility] NRBC Absolute 0.000 0.000 - 0.000 x10(3)/mc L [facility] Blood No Charge / Unknown 04/29/2021 8:50 AM EST 04/29/2021 9:00 AM EST Narrative Resulting Agency Comment Spec In Lab Mandie Aguilera MD HEMATOLOGY ORDERABLE S Performing Organization Address City/[facility]/ZIP Co de Phone Number [facility] [place] [address] * Lavender Tube HOLD (04/29/2021 8:50 AM EST) Lavender Hold Sample in lab. [facility] Blood No Charge / Unknown 04/29/2021 8:50 AM EST 04/29/2021 9:00 AM EST Viridiana Wharton MD HEMATOLOGY ORDERABLE S Performing Organization Address City/[facility]/ZIP Co de Phone Number [facility] [place] [address] * Green Tube HOLD (04/29/2021 8:50 AM EST) Green Hold Sample in lab. [facility] Blood No Charge / Unknown 04/29/2021 8:50 AM EST 04/29/2021 9:00 AM EST Viridiana Wharton MD CHEMISTRY ORDERABLES Performing Organization Address City/[facility] Co de Phone Number [facility] [place] [address] * POCT Glucose (04/29/2021 7:47 AM EST) Glucose, POC 117 65 - 199 mg/dL [facility] Comment: Supplemental ranges: <140 mg/dL before meals <180 mg/dL all other times of the day Blood 04/29/2021 7:47 AM EST 04/29/2021 7:47 AM EST Zara Olsen MD POINT OF CARE TEST O RDERABLES [facility] [place] [address] * (ABNORMAL) Differential, Automated (04/28/2021 9:30 PM EST) Neutrophil % 71.4 % [facility] Neutrophil Absolute 8.37(H) 1.70 - 6.10 x10(3)/mc L [facility] Lymph % 16.3 % [facility] Lymphocytes Abs 1.9 0.9 - 3.2 x10(3)/mc L [facility] Monocyte % 7.7 % [facility] Monocyte Abs 0.9 0.3 - 0.9 x10(3)/mc L [facility] Eos % 0.4 % [facility] Eosinophils Abs 0.0 0.0 - 0.4 x10(3)/mc L [facility] Basophil % 0.4 % [facility] Baso Absolute 0.0 0.0 - 0.1 x10(3)/mc L [facility] Immature Gran % 3.80 % [facility] Comment: Immature granulocytes(IG's)percentage and absolute count will include metamyelocytes, myelocytes, and promyelocytes. Blood smears from CBCs yielding IG's will be scanned manually for concordance. If this scan disagrees with the automated IG or if promyelocytes are noted, a manual differential will be performed. Immature Gran Absolute 0.45(H) 0.00 - 0.04 x10(3)/mc L [facility] Blood 04/28/2021 9:30 PM EST 04/28/2021 9:38 PM EST Narrative Resulting Agency Comment Spec In Lab Mandie Aguilera MD HEMATOLOGY ORDERABLE S [facility] [place] [address] * (ABNORMAL) Hemogram (04/28/2021 9:30 PM EST) White Blood Cell 11.7(H) 4.0 - 9.5 x10(3)/mc L [facility] Red Blood Cell 3.63(L) 4.00 - 5.21 x10(6)/mc L [facility] Hemoglobin 11.1(L) 11.7 - 15.5 g/dL [facility] Hematocrit 32.8(L) 35.7 - 45.8 % [facility] Mean Cell Volume 90.4 82.6 - 94.4 fL [facility] Mean Cell Hemoglobin 30.6 27.1 - 32.0 pg [facility] Mean Cell Hemoglobin Concentration 33.8 31.7 - 35.0 g/dL [facility] Platelet 331 145 - 357 x10(3)/mc L [facility] RDW Standard Deviation 49.9(H) 37.0 - 46.0 [facility] RDW coefficient of variation 15.4(H) 11.5 - 14.1 % [facility] Mean Platelet Volume 9.5 7.6 - 12.9 [facility] NRBC% auto 0.4 % [facility] NRBC Absolute 0.050(H) 0.000 - 0.000 x10(3)/ L [facility] Blood 04/28/2021 9:30 PM EST 04/28/2021 9:38 PM EST Narrative Resulting Agency Comment Spec In Lab Mandie Aguilera MD HEMATOLOGY ORDERABLE S [facility] [place] [address] * (ABNORMAL) Comprehensive metabolic panel (non-fasting) (04/28/2021 9:30 PM EST) Glucose 106 65 - 199 mg/dL [facility] Comment:Diabetes: >=200 mg/d L plus symptoms Blood Urea Nitrogen 15 8 - 18 mg/dL [facility] Creatinine 0.77 0.70 - 1.20 mg/dL [facility] Sodium 133(L) 135 - 145 mmol/L [facility] Potassium 4.1 3.5 - 5.0 mmol/L [facility] Comment: Please note: ??Patients with WBC >100,000 may have falsely elevated Potassium levels. ??For accurate Potassium quantification in these patients send serum separator tube (gold top) for subsequent determinations. ??Contact the Clinical Chemistry Laboratory if there are any questions. Chloride 101 98 - 107 mmol/L [facility] Carbon Dioxide 17(L) 22 - 31 mmol/L [facility] Anion Gap 15 5 - 15 mmol/L [facility] Calcium 8.4(L) 8.5 - 10.5 mg/dL [facility] Protein, Total 6.8 6.1 - 8.0 g/dL [facility] Albumin 3.6 3.2 - 5.2 g/dL [facility] Aspartate Aminotransferase 25 0 - 30 unit/L [facility] Alanine Aminotransferase 29 0 - 30 unit/L [facility] Alkaline Phosphatase 94 35 - 105 unit/L [facility] Bilirubin, Total 0.3 0.2 - 1.3 mg/dL [facility] Est Glomerular Filtration Rate 93 >=60 mL/min/1. 73 m?? [facility] Comment: This patient? [...] Olsen MD CHEMISTRY ORDERABLES Performing Organization Address [facility] Co de Phone Number [facility] [place] [address] * Type and Screen Validity (04/28/2021 9:29 PM EST) [facility] T&S only valid at [facility] Comment:This Type and Screen result is only valid at the [facility] Blood 04/28/2021 9:29 PM EST 04/28/2021 9:37 PM EST Narrative Resulting Agency Comment Spec In Lab Bess Ahuja MD BLOOD BANK LAB ORDER MITRA Performing Organization Address [facility] Co de Phone Number [facility] [place] [address] * ABORH Recheck Status (04/28/2021 9:29 PM EST) [facility] ABORH Type Recheck Completed [facility] Blood 04/28/2021 9:29 PM EST 04/28/2021 9:37 PM EST Narrative Resulting Agency Comment Spec In Lab Bess Ahuja MD BLOOD BANK LAB ORDER MITRA Performing Organization Address [facility] Co de Phone Number [facility] [place] [address] * Antibody screen (04/28/2021 9:29 PM EST) [facility] Ab Screen Interp Negative [facility] Expires at [id number] on: 05/01/2021 [facility] Blood 04/28/2021 9:29 PM EST 04/28/2021 9:37 PM EST Narrative Resulting Agency Comment Spec In Lab Bess Ahuja MD BLOOD BANK LAB ORDER MITRA Performing Organization Address City/[facility]/ZIP Co de Phone Number [facility] [place] [address] * ABO/Rh Typing (04/28/2021 9:29 PM EST) ABORH Type O Pos [facility] Blood 04/28/2021 9:29 PM EST 04/28/2021 9:37 PM EST Narrative Resulting Agency Comment Spec In Lab Bess Ahuja MD BLOOD BANK LAB ORDER MITRA Performing Organization Address [facility] Co de Phone Number [facility] [place] [address] * POCT Glucose (04/28/2021 6:53 PM EST) Glucose, POC 118 65 - 199 mg/dL [facility] Comment: Supplemental ranges: <140 mg/dL before meals <180 mg/dL all other times of the day Blood 04/28/2021 6:53 PM EST 04/28/2021 6:53 PM EST Zara Olsen MD POINT OF CARE TEST O RDERABLES Performing Organization Address [facility]/ZIP Co de Phone Number [facility] [place] [address] * POCT Glucose (04/28/2021 4:57 PM EST) Glucose, POC 96 65 - 199 mg/dL [facility] Comment: Supplemental ranges: <140 mg/dL before meals <180 mg/dL all other times of the day Blood 04/28/2021 4:57 PM EST 04/28/2021 4:57 PM EST Zara Olsen MD POINT OF CARE TEST O JOHN Performing Organization Address [facility] Co de Phone Number [facility] [place] [address] * POCT Glucose (04/28/2021 11:06 AM EST) Glucose, POC 84 65 - 199 mg/dL [facility] Comment: Supplemental ranges: <140 mg/dL before meals <180 mg/dL all other times of the day Blood 04/28/2021 11:0 6 AM EST 04/28/2021 11:06 AM EST Zara Olsen MD POINT OF CARE TEST O JOHN Performing Organization Address [facility] Phone Number [facility] [place] [address] * US DIRECT CHILL CASTER (POCUS) (04/28/2021 10:51 AM EST) Anatomical Region [...] following Performing: ?on 11:27 Attending: ?on 11:27 [email or web address] Procedure Note Venecia Newman MD - [...] the following Performing: on 11:27Attending: on 11:27 [email or web address] Venecia Newman MD EA IMAGES * (ABNORMAL) Differential, Automated (04/28/2021 10:40 AM EST) Neutrophil % 69.1 % [facility] Neutrophil Absolute 7.27(H) 1.70 - 6.10 x10(3)/mc L [facility] Lymph % 16.8 % [facility] Lymphocytes Abs 1.8 0.9 - 3.2 x10(3)/mc L [facility] Monocyte % 7.9 % [facility] Monocyte Abs 0.8 0.3 - 0.9 x10(3)/mc L [facility] Eos % 0.6 % [facility] Eosinophils Abs 0.1 0.0 - 0.4 x10(3)/ L [facility] Basophil % 0.7 % [facility] Baso Absolute 0.1 0.0 - 0.1 x10(3)/ L [facility] Immature Gran % 4.90 % [facility] Comment: Immature granulocytes(IG's)percentage and absolute count will include metamyelocytes, myelocytes, and promyelocytes. Blood smears from CBCs yielding IG's will be scanned manually for concordance. If this scan disagrees with the automated IG or if promyelocytes are noted, a manual differential will be performed. Immature Gran Absolute 0.51(H) 0.00 - 0.04 x10(3)/[facility] Blood 04/28/2021 10:4 0 AM EST 04/28/2021 10:59 AM EST Narrative Resulting Agency Comment Spec In Lab Mandie Aguilera MD HEMATOLOGY ORDERABLE S [facility] [place] [address] * (ABNORMAL) Hemogram (04/28/2021 10:40 AM EST) White Blood Cell 10.5(H) 4.0 - 9.5 x10(3)/ L [facility] Red Blood Cell 3.53(L) 4.00 - 5.21 x10(6)/ L [facility] Hemoglobin 10.8(L) 11.7 - 15.5 g/dL [facility] Hematocrit 31.6(L) 35.7 - 45.8 % [facility] Mean Cell Volume 89.5 82.6 - 94.4 fL [facility] Mean Cell Hemoglobin 30.6 27.1 - 32.0 pg [facility] Mean Cell Hemoglobin Concentration 34.2 31.7 - 35.0 g/dL [facility] Platelet 278 145 - 357 x10(3)/ L [facility] RDW Standard Deviation 48.8(H) 37.0 - 46.0 fL [facility] RDW coefficient of variation 15.1(H) 11.5 - 14.1 % [facility] Mean Platelet Volume 9.1 7.6 - 12.9 fL [facility] NRBC% auto 0.5 % [facility] NRBC Absolute 0.050(H) 0.000 - 0.000 x10(3)/mc L [facility] Blood 04/28/2021 10:4 0 AM EST 04/28/2021 10:59 AM EST Narrative Resulting Agency Comment Spec In Lab Mandie Aguilera MD HEMATOLOGY ORDERABLE S Performing Organization Address City/State/[facility] Co de Phone Number [facility] [place] [address] * (ABNORMAL) Comprehensive metabolic panel (non-fasting) (04/28/2021 10:40 AM EST) Glucose 80 65 - 199 mg/dL [facility] Comment:Diabetes: >=200 mg/d L plus symptoms Blood Urea Nitrogen 13 8 - 18 mg/dL [facility] Creatinine 0.78 0.70 - 1.20 mg/dL [facility] Sodium 135 135 - 145 mmol/L [facility] Potassium 4.2 3.5 - 5.0 mmol/L [facility] Comment: Please note: ??Patients with WBC >100,000 may have falsely elevated Potassium levels. ??For accurate Potassium quantification in these patients send serum separator tube (gold top) for subsequent determinations. ??Contact the Clinical Chemistry Laboratory if there are any questions. Chloride 106 98 - 107 mmol/L [facility] Carbon Dioxide 17(L) 22 - 31 mmol/L [facility] Anion Gap 12 5 - 15 mmol/L [facility] Calcium 8.6 8.5 - 10.5 mg/dL [facility] Protein, Total 6.5 6.1 - 8.0 g/dL [facility] Albumin 3.5 3.2 - 5.2 g/dL [facility] Aspartate Aminotransferase 23 0 - 30 unit/L [facility] Alanine Aminotransferase 27 0 - 30 unit/L [facility] Alkaline Phosphatase 88 35 - 105 unit/L [facility] Bilirubin, Total 0.3 0.2 - 1.3 mg/dL [facility] Est Glomerular Filtration Rate 91 >=60 mL/min/1. 73 m?? [facility] Comment: This patient? [...] In Lab Zara Olsen MD CHEMISTRY ORDERABLES [facility] [place] [address] * POCT Glucose (04/28/2021 5:43 AM EST) Glucose, POC 86 65 - 199 mg/dL [facility] Comment: Supplemental ranges: <140 mg/dL before meals <180 mg/dL all other times of the day Blood 04/28/2021 5:43 AM EST 04/28/2021 5:43 AM EST Zara Olsen MD POINT OF CARE TEST O RDERABLES [facility] [place] [address] * (ABNORMAL) Differential, Automated (04/27/2021 10:20 PM EST) Neutrophil % 66.9 % [facility] Neutrophil Absolute 7.85(H) 1.70 - 6.10 x10(3)/mc L [facility] Lymph % 16.8 % [facility] Lymphocytes Abs 2.0 0.9 - 3.2 x10(3)/mc L [facility] Monocyte % 10.8 % [facility] Monocyte Abs 1.3(H) 0.3 - 0.9 x10(3)/ L [facility] Eos % 0.3 % [facility] Eosinophils Abs 0.0 0.0 - 0.4 x10(3)/[facility] Basophil % 0.5 % [facility] Baso Absolute 0.1 0.0 - 0.1 x10(3)/ L [facility] Immature Gran % 4.70 % [facility] Comment: Immature granulocytes(IG's)percentage and absolute count will include metamyelocytes, myelocytes, and promyelocytes. Blood smears from CBCs yielding IG's will be scanned manually for concordance. If this scan disagrees with the automated IG or if promyelocytes are noted, a manual differential will be performed. Immature Gran Absolute 0.55(H) 0.00 - 0.04 x10(3)/ L [facility] Blood 04/27/2021 10:2 0 PM EST 04/27/2021 10:26 PM EST Narrative Resulting Agency Comment Spec In Lab Mandie Aguilera MD HEMATOLOGY ORDERABLE S Performing Organization Address City/[facility]/ZIP Co de Phone Number [facility] [place] [address] * (ABNORMAL) Hemogram (04/27/2021 10:20 PM EST) White Blood Cell 11.7(H) 4.0 - 9.5 x10(3)/mc L [facility] Red Blood Cell 3.37(L) 4.00 - 5.21 x10(6)/mc L [facility] Hemoglobin 10.4(L) 11.7 - 15.5 g/dL [facility] Hematocrit 30.5(L) 35.7 - 45.8 % [facility] Mean Cell Volume 90.5 82.6 - 94.4 fL [facility] Mean Cell Hemoglobin 30.9 27.1 - 32.0 pg [facility] Mean Cell Hemoglobin Concentration 34.1 31.7 - 35.0 g/dL [facility] Platelet 286 145 - 357 x10(3)/mc L [facility] RDW Standard Deviation 48.9(H) 37.0 - 46.0 [facility] RDW coefficient of variation 15.2(H) 11.5 - 14.1 % [facility] Mean Platelet Volume 9.2 7.6 - 12.9 fL [facility] NRBC% auto 0.7 % [facility] NRBC Absolute 0.080(H) 0.000 - 0.000 x10(3)/mc L [facility] Blood 04/27/2021 10:2 0 PM EST 04/27/2021 10:26 PM EST Narrative Resulting Agency Comment Spec In Lab Mandie Aguilera MD HEMATOLOGY ORDERABLE S [facility] [place] [address] * (ABNORMAL) Comprehensive metabolic panel (non-fasting) (04/27/2021 10:20 PM EST) Glucose 97 65 - 199 mg/dL [facility] Comment:Diabetes: >=200 mg/d L plus symptoms Blood Urea Nitrogen 16 8 - 18 mg/dL [facility] Creatinine 0.84 0.70 - 1.20 mg/dL [facility] Sodium 135 135 - 145 mmol/L [facility] Potassium 4.1 3.5 - 5.0 mmol/L [facility] Comment: Please note: ??Patients with WBC >100,000 may have falsely elevated Potassium levels. ??For accurate Potassium quantification in these patients send serum separator tube (gold top) for subsequent determinations. ??Contact the Clinical Chemistry Laboratory if there are any questions. Chloride 104 98 - 107 mmol/L [facility] Carbon Dioxide 18(L) 22 - 31 mmol/L [facility] Anion Gap 13 5 - 15 mmol/L [facility] Calcium 8.9 8.5 - 10.5 mg/dL [facility] Protein, Total 6.3 6.1 - 8.0 g/dL [facility] Albumin 3.6 3.2 - 5.2 g/dL [facility] Aspartate Aminotransferase 22 0 - 30 unit/L [facility] Alanine Aminotransferase 25 0 - 30 unit/L [facility] Alkaline Phosphatase 86 35 - 105 unit/L [facility] Bilirubin, Total 0.2 0.2 - 1.3 mg/dL [facility] Est Glomerular Filtration Rate 83 >=60 mL/min/1. 73 m?? [facility] Comment: This patient? [...] Olsen MD CHEMISTRY ORDERABLES Performing Organization Address [facility] Phone Number [facility] [place] [address] * POCT Glucose (04/27/2021 8:01 PM EST) Glucose, POC 131 65 - 199 mg/dL [facility] Comment: Supplemental ranges: <140 mg/dL before meals <180 mg/dL all other times of the day Blood 04/27/2021 8:01 PM EST 04/27/2021 8:01 PM EST Zara Olsen MD POINT OF CARE TEST O RDERABLES Performing Organization Address [facility] Phone Number [facility] [place] [address] * POCT Glucose (04/27/2021 2:01 PM EST) Glucose, POC 153 65 - 199 mg/dL [facility] Comment: Supplemental ranges: <140 mg/dL before meals <180 mg/dL all other times of the day Blood 04/27/2021 2:01 PM EST 04/27/2021 2:01 PM EST Zara Olsen MD POINT OF CARE TEST O RDERABLES Performing Organization Address [facility] Phone Number [facility] [place] [address] * POCT Glucose (04/27/2021 9:35 AM EST) Glucose, POC 123 65 - 199 mg/dL [facility] Comment: Supplemental ranges: <140 mg/dL before meals <180 mg/dL all other times of the day Blood 04/27/2021 9:35 AM EST 04/27/2021 9:35 AM EST Zara Olsen MD POINT [place] [address] * (ABNORMAL) Differential, Automated (04/27/2021 9:04 AM EST) Neutrophil % 72.2 % [facility] Neutrophil Absolute 9.83(H) 1.70 - 6.10 x10(3)/mc L [facility] Lymph % 14.3 % [facility] Lymphocytes Abs 2.0 0.9 - 3.2 x10(3)/ L [facility] Monocyte % 7.6 % [facility] Monocyte Abs 1.0(H) 0.3 - 0.9 x10(3)/mc L [facility] Eos % 0.1 % [facility] Eosinophils Abs 0.0 0.0 - 0.4 x10(3)/ L [facility] Basophil % 0.4 % [facility] Baso Absolute 0.0 0.0 - 0.1 x10(3)/ L [facility] Immature Gran % 5.40 % [facility] Comment: Immature granulocytes(IG's)percentage and absolute count will include metamyelocytes, myelocytes, and promyelocytes. Blood smears from CBCs yielding IG's will be scanned manually for concordance. If this scan disagrees with the automated IG or if promyelocytes are noted, a manual differential will be performed. Immature Gran Absolute 0.74(H) 0.00 - 0.04 x10(3)/mc L [facility] Blood 04/27/2021 9:04 AM EST 04/27/2021 10:18 AM EST Narrative Resulting Agency Comment Spec In Lab Mandie Aguilera MD HEMATOLOGY ORDERABLE S Performing Organization Address City/[facility]/ZIP Co de Phone Number [facility] [place] [address] * (ABNORMAL) Hemogram (04/27/2021 9:04 AM EST) White Blood Cell 13.6(H) 4.0 - 9.5 x10(3)/mc L [facility] Red Blood Cell 3.25(L) 4.00 - 5.21 x10(6)/mc L [facility] Hemoglobin 9.7(L) 11.7 - 15.5 g/dL [facility] Hematocrit 29.4(L) 35.7 - 45.8 % [facility] Mean Cell Volume 90.5 82.6 - 94.4 fL [facility] Mean Cell Hemoglobin 29.8 27.1 - 32.0 pg [facility] Mean Cell Hemoglobin Concentration 33.0 31.7 - 35.0 g/dL [facility] Platelet 307 145 - 357 x10(3)/mc L [facility] RDW Standard Deviation 48.8(H) 37.0 - 46.0 fL [facility] RDW coefficient of variation 15.0(H) 11.5 - 14.1 % [facility] Mean Platelet Volume 9.6 7.6 - 12.9 fL [facility] NRBC% auto 0.4 % [facility] NRBC Absolute 0.060(H) 0.000 - 0.000 x10(3)/mc L [facility] Blood 04/27/2021 9:04 AM EST 04/27/2021 10:18 AM EST Narrative Resulting Agency Comment Spec In Lab Mandie Aguilera MD HEMATOLOGY ORDERABLE S [facility] [place] [address] * (ABNORMAL) Comprehensive metabolic panel (non-fasting) (04/27/2021 9:04 AM EST) Pathologist [facility] [place] Glucose Not Perf 65 - 199 [facility] Comment: Sample improperly processed prior to receipt. Diabetes: >=200 mg/dL plus symptoms Blood Urea Nitrogen 16 8 - 18 mg/dL [facility] Creatinine 0.79 0.70 - 1.20 mg/dL [facility] Sodium 137 135 - 145 mmol/L [facility] Potassium 4.1 3.5 - 5.0 mmol/L [facility] Comment: Please note: ??Patients with WBC >100,000 may have falsely elevated Potassium levels. ??For accurate Potassium quantification in these patients send serum separator tube (gold top) for subsequent determinations. ??Contact the Clinical Chemistry Laboratory if there are any questions. Chloride 106 98 - 107 mmol/L [facility] Carbon Dioxide 17(L) 22 - 31 mmol/L [facility] Anion Gap 14 5 - 15 mmol/L [facility] Calcium 8.8 8.5 - 10.5 mg/dL [facility] Protein, Total 6.4 6.1 - 8.0 g/dL [facility] Albumin 3.6 3.2 - 5.2 g/dL [facility] Aspartate Aminotransferase 25 0 - 30 unit/L [facility] Alanine Aminotransferase 24 0 - 30 unit/L [facility] Alkaline Phosphatase 79 35 - 105 unit/L [facility] Bilirubin, Total 0.3 0.2 - 1.3 mg/dL [facility] Est Glomerular Filtration Rate 90 >=60 mL/min/1. 73 m?? [facility] Comment: This patient? [...] Olsen MD CHEMISTRY ORDERABLES Performing Organization Address [facility] Co de Phone Number [facility] [place] [address] * POCT Glucose (04/27/2021 5:33 AM EST) [facility] Glucose, POC 94 65 - 199 mg/dL [facility] Comment: Supplemental ranges: <140 mg/dL before meals <180 mg/dL all other times of the day Blood 04/27/2021 5:33 AM EST 04/27/2021 5:33 AM EST Zara Olsen MD POINT OF CARE TEST O RDERABLES Performing Organization Address [facility] Co de Phone Number [facility] [place] [address] * Scan, Peripheral Blood (04/26/2021 9:00 PM EST) [facility] Plat estimate Normal [facility] RBC Morphology Abnormal [facility] Macrocyte 1-5 /HPF [facility] Microcyte 1-5 /HPF [facility] Platelet Clumps Present [facility] Blood 04/26/2021 9:00 PM EST 04/26/2021 9:13 PM EST Narrative Resulting Agency Comment Spec In Lab Mandie Aguilera MD HEMATOLOGY ORDERABLE S Performing Organization Address [facility] Co de Phone Number [facility] [place] [address] * (ABNORMAL) Differential, Automated (04/26/2021 9:00 PM EST) [facility] Neutrophil % 72.9 % [facility] Neutrophil Absolute 11.30(H) 1.70 - 6.10 x10(3)/mc L [facility] Lymph % 13.0 % [facility] Lymphocytes Abs 2.0 0.9 - 3.2 x10(3)/[facility] Monocyte % 7.1 % [facility] Monocyte Abs 1.1(H) 0.3 - 0.9 x10(3)/[facility] Eos % 0.1 % [facility] Eosinophils Abs 0.0 0.0 - 0.4 x10(3)/[facility] Basophil % 0.3 % [facility] Baso Absolute 0.0 0.0 - 0.1 x10(3)/[facility] Immature Gran % 6.60 % [facility] Comment: Immature granulocytes(IG's)percentage and absolute count will include metamyelocytes, myelocytes, and promyelocytes. Blood smears from CBCs yielding IG's will be scanned manually for concordance. If this scan disagrees with the automated IG or if promyelocytes are noted, a manual differential will be performed. Immature Gran Absolute 1.03(H) 0.00 - 0.04 x10(3)/[facility] Blood 04/26/2021 9:00 PM EST 04/26/2021 9:13 PM EST Narrative Resulting Agency Comment Spec In Lab Mandie Aguilera MD HEMATOLOGY ORDERABLE S [facility] [place] [address] * (ABNORMAL) Hemogram (04/26/2021 9:00 PM EST) White Blood Cell 15.5(H) 4.0 - 9.5 x10(3)/[facility] Red Blood Cell 3.28(L) 4.00 - 5.21 x10(6)/[facility] Hemoglobin 10.0(L) 11.7 - 15.5 g/dL [facility] Hematocrit 30.0(L) 35.7 - 45.8 % [facility] Mean Cell Volume 91.5 82.6 - 94.4 fL [facility] Mean Cell Hemoglobin 30.5 27.1 - 32.0 pg [facility] Mean Cell Hemoglobin Concentration 33.3 31.7 - 35.0 g/dL [facility] Platelet 304 145 - 357 x10(3)/mc L [facility] RDW Standard Deviation 50.1(H) 37.0 - 46.0 fL [facility] RDW coefficient of variation 15.2(H) 11.5 - 14.1 % [facility] Mean Platelet Volume 9.5 7.6 - 12.9 fL [facility] NRBC% auto 0.5 % [facility] NRBC Absolute 0.070(H) 0.000 - 0.000 x10(3)/mc L [facility] Blood 04/26/2021 9:00 PM EST 04/26/2021 9:13 PM EST Narrative Resulting Agency Comment Spec In Lab Mandie Aguilera MD HEMATOLOGY ORDERABLE S [facility] [place] [address] * (ABNORMAL) Comprehensive metabolic panel (non-fasting) (04/26/2021 9:00 PM EST) Glucose 133 65 - 199 mg/dL [facility] Comment:Diabetes: >=200 mg/d L plus symptoms Blood Urea Nitrogen 17 8 - 18 mg/dL [facility] Creatinine 0.99 0.70 - 1.20 mg/dL [facility] Sodium 137 135 - 145 mmol/L [facility] Potassium 3.9 3.5 - 5.0 mmol/L [facility] Comment: Please note: ??Patients with WBC >100,000 may have falsely elevated Potassium levels. ??For accurate Potassium quantification in these patients send serum separator tube (gold top) for subsequent determinations. ??Contact the Clinical Chemistry Laboratory if there are any questions. Chloride 108(H) 98 - 107 mmol/L [facility] Carbon Dioxide 15(L) 22 - 31 mmol/L [facility] Anion Gap 14 5 - 15 mmol/L [facility] Calcium 8.5 8.5 - 10.5 mg/dL [facility] Protein, Total 6.5 6.1 - 8.0 g/dL [facility] Albumin 3.5 3.2 - 5.2 g/dL [facility] Aspartate Aminotransferase 19 0 - 30 unit/L [facility] Alanine Aminotransferase 22 0 - 30 unit/L [facility] Alkaline Phosphatase 79 35 - 105 unit/L [facility] Bilirubin, Total <0.2(L) 0.2 - 1.3 mg/dL [facility] Est Glomerular Filtration Rate 68 >=60 mL/min/1. 73 m?? [facility] Comment: This patient? [...] In Lab Zara Olsen MD CHEMISTRY ORDERABLES [facility] [place] [address] * POCT Glucose (04/26/2021 7:44 PM EST) Glucose, POC 154 65 - 199 mg/dL [facility] Comment: Supplemental ranges: <140 mg/dL before meals <180 mg/dL all other times of the day Blood 04/26/2021 7:44 PM EST 04/26/2021 7:44 PM EST Zara Olsen MD POINT OF CARE TEST O RDERAJENIFFER Performing Organization Address City/[facility]/ZIP Co de Phone Number [facility] [place] [address] * POCT Glucose (04/26/2021 2:53 PM EST) Glucose, POC 127 65 - 199 mg/dL [facility] Comment: Supplemental ranges: <140 mg/dL before meals <180 mg/dL all other times of the day Blood 04/26/2021 2:53 PM EST 04/26/2021 2:53 PM EST Zara Olsen MD POINT OF CARE TEST O JOHN Performing Organization Address [facility] Co de Phone Number [facility] [place] [address] * POCT Glucose (04/26/2021 10:33 AM EST) Glucose, POC 187 65 - 199 mg/dL [facility] Comment: Supplemental ranges: <140 mg/dL before meals <180 mg/dL all other times of the day Blood 04/26/2021 10:3 3 AM EST 04/26/2021 10:33 AM EST Zara Olsen MD POINT OF CARE TEST O JOHN Performing Organization Address City/[facility] Co de Phone Number [facility] [place] [address] * ECHO COMPLETE (04/26/2021 9:37 AM EST) EF 60 HEARTLAB SYSTEM Anatomical Region Laterality Modality Other 04/26/2021 8:54 AM EST Narrative 04/26/2021 10:29 AM EST ?[facility] ?[address] ? [place] [address] ?Voice: ?Fax: ? Echocardiogram Report Name: EDWAR DOMINGUEZ ? Study Date: 04/26/2021 08:54 AMBP: 146/83 mmHg ? Patient Location: BP05 A ?? HR: 94 : 1975 ? Height: 158 cm ? Account: [id number] Age: 46 yrs ? Weight: 97 kg Gender: Female ?BSA: 2.0 m2 Ordering Physician: ERVIN^R Performed By: Lorena Del Rosario RDCS Reason For Study: Severe pre-eclampsia Interpreting Fellow: Daisy Kenyon. Exam Location: [facility]. Interpretation Summary Biventricular function is normal. LVEF is 64% by King's biplane. There is no valve disease. See below report for details. Procedure Complete-[id number]. Left Ventricle Left ventricle is of normal [...] Procedure Note Lito Wang MD - 04/26/2021 [place] [address] Voice: Fax: Echocardiogram Report Name: EDWAR DOMINGUEZ Study Date: 208:54 AMBP: 146/83 mmHg Patient Location: [address] HR: 94 : 1975 Height: 158 cm Account: [id number] Age: 46 yrs Weight: 97 kg Gender: Female BSA: 2.0 m2 Ordering Physician: ERVIN^Josh Performed By: Lorena Del Rosario RDCS Reason For Study: Severe pre-eclampsia Interpreting Fellow: Daisy Kenyon. Exam Location: [facility]. Interpretation Summary Biventricular function is normal. LVEF is 64% by King's biplane. There is no valve disease. See below report for details. Procedure Complete-[id number]. Left Ventricle Left ventricle is of normal [...] POCT Glucose (04/26/2021 5:51 AM EST) Pathologist [facility] [place] Glucose, POC 128 65 - 199 mg/dL [facility] Comment: Supplemental ranges: <140 mg/dL before meals <180 mg/dL all other times of the day Blood 04/26/2021 5:51 AM EST 04/26/2021 5:51 AM EST Zara Olsen MD POINT OF CARE TEST O RDERABLES Performing Organization Address City/State/[facility] Co de Phone Number [facility] [place] [address] * (ABNORMAL) Differential, Automated (04/26/2021 5:50 AM EST) [facility] Neutrophil % 84.0 % [facility] Neutrophil Absolute 11.98(H) 1.70 - 6.10 x10(3)/mc L [facility] Lymph % 7.4 % [facility] Lymphocytes Abs 1.1 0.9 - 3.2 x10(3)/mc L [facility] Monocyte % 3.3 % [facility] Monocyte Abs 0.5 0.3 - 0.9 x10(3)/mc L [facility] Eos % 0.1 % [facility] Eosinophils Abs 0.0 0.0 - 0.4 x10(3)/mc L [facility] Basophil % 0.4 % [facility] Baso Absolute 0.0 0.0 - 0.1 x10(3)/mc L [facility] Immature Gran % 4.80 % [facility] Comment: Immature granulocytes(IG's)percentage and absolute count will include metamyelocytes, myelocytes, and promyelocytes. Blood smears from CBCs yielding IG's will be scanned manually for concordance. If this scan disagrees with the automated IG or if promyelocytes are noted, a manual differential will be performed. Immature Gran Absolute 0.68(H) 0.00 - 0.04 x10(3)/mc L [facility] Blood 04/26/2021 5:50 AM EST 04/26/2021 6:14 AM EST Narrative Resulting Agency Comment Spec In Lab Leti Guerrero MD HEMATOLOGY ORDERABLE S [facility] [place] [address] * (ABNORMAL) Hemogram (04/26/2021 5:50 AM EST) White Blood Cell 14.2(H) 4.0 - 9.5 x10(3)/mc L [facility] Red Blood Cell 3.36(L) 4.00 - 5.21 x10(6)/mc L [facility] Hemoglobin 10.4(L) 11.7 - 15.5 g/dL [facility] Hematocrit 30.0(L) 35.7 - 45.8 % [facility] Mean Cell Volume 89.3 82.6 - 94.4 fL [facility] Mean Cell Hemoglobin 31.0 27.1 - 32.0 pg [facility] Mean Cell Hemoglobin Concentration 34.7 31.7 - 35.0 g/dL [facility] Platelet 297 145 - 357 x10(3)/mc L [facility] RDW Standard Deviation 48.1(H) 37.0 - 46.0 fL [facility] RDW coefficient of variation 15.0(H) 11.5 - 14.1 % [facility] Mean Platelet Volume 9.1 7.6 - 12.9 fL [facility] NRBC% auto 0.1 % [facility] NRBC Absolute 0.020(H) 0.000 - 0.000 x10(3)/mc L [facility] Blood 04/26/2021 5:50 AM EST 04/26/2021 6:14 AM EST Narrative Resulting Agency Comment Spec In Lab Leti Guerrero MD HEMATOLOGY ORDERABLE S [facility] [place] [address] * (ABNORMAL) Comprehensive metabolic panel (non-fasting) (04/26/2021 5:50 AM EST) Glucose 122 65 - 199 mg/dL [facility] Comment:Diabetes: >=200 mg/d L plus symptoms Blood Urea Nitrogen 11 8 - 18 mg/dL [facility] Creatinine 0.75 0.70 - 1.20 mg/dL [facility] Sodium 134(L) 135 - 145 mmol/L [facility] Potassium 4.4 3.5 - 5.0 mmol/L [facility] Comment: Please note: ??Patients with WBC >100,000 may have falsely elevated Potassium levels. ??For accurate Potassium quantification in these patients send serum separator tube (gold top) for subsequent determinations. ??Contact the Clinical Chemistry Laboratory if there are any questions. Chloride 105 98 - 107 mmol/L [facility] Carbon Dioxide 15(L) 22 - 31 mmol/L [facility] Anion Gap 14 5 - 15 mmol/L [facility] Calcium 8.2(L) 8.5 - 10.5 mg/dL [facility] Protein, Total 6.7 6.1 - 8.0 g/dL [facility] Albumin 3.7 3.2 - 5.2 g/dL [facility] Aspartate Aminotransferase 19 0 - 30 unit/L [facility] Alanine Aminotransferase 19 0 - 30 unit/L [facility] Alkaline Phosphatase 88 35 - 105 unit/L [facility] Bilirubin, Total 0.3 0.2 - 1.3 mg/dL [facility] Est Glomerular Filtration Rate 96 >=60 mL/min/1. 73 m?? [facility] Comment: This patient? [...] Olsen MD CHEMISTRY ORDERABLES Performing Organization Address City/State/[facility] Co de Phone Number [facility] [place] [address] * (ABNORMAL) Comprehensive metabolic panel (non-fasting) (04/26/2021 12:24 AM EST) Glucose 123 65 - 199 mg/dL [facility] Comment:Diabetes: >=200 mg/d L plus symptoms Blood Urea Nitrogen 13 8 - 18 mg/dL [facility] Creatinine 0.84 0.70 - 1.20 mg/dL [facility] Sodium 132(L) 135 - 145 mmol/L [facility] Potassium 4.7 3.5 - 5.0 mmol/L [facility] Comment: Please note: ??Patients with WBC >100,000 may have falsely elevated Potassium levels. ??For accurate Potassium quantification in these patients send serum separator tube (gold top) for subsequent determinations. ??Contact the Clinical Chemistry Laboratory if there are any questions. Chloride 105 98 - 107 mmol/L [facility] Carbon Dioxide 16(L) 22 - 31 mmol/L [facility] Anion Gap 11 5 - 15 mmol/L [facility] Calcium 8.3(L) 8.5 - 10.5 mg/dL [facility] Protein, Total 6.7 6.1 - 8.0 g/dL [facility] Albumin 3.3 3.2 - 5.2 g/dL [facility] Aspartate Aminotransferase Not Perf 0 - 30 [facility] Comment: Unable to quantitate due to sample hemolysis. ??Sample redraw suggested. Called by: EG, Read back by: Izabel Anthony, Date/Time:04/26/21 01:11. Alanine Aminotransferase 21 0 - 30 unit/L [facility] Alkaline Phosphatase 89 35 - 105 unit/L [facility] Bilirubin, Total 0.3 0.2 - 1.3 mg/dL [facility] Est Glomerular Filtration Rate 83 >=60 mL/min/1. 73 m?? [facility] Comment: This patient? [...] In Lab Zara Olsen MD CHEMISTRY ORDERABLES [facility] [place] [address] * Osmolality, urine, random (04/25/2021 9:36 PM EST) Osmolality, Urine 87 50 - 1,200 mOsm/kg [facility] Urine 04/25/2021 9:36 PM EST 04/25/2021 9:44 PM EST Narrative Resulting Agency Comment Spec In Lab Zara Olsen MD URINE ORDERABLES Performing Organization Address [facility] de Phone Number [facility] [place] [address] * POCT Glucose (04/25/2021 8:58 PM EST) Glucose, POC 121 65 - 199 mg/dL [facility] Comment: Supplemental ranges: <140 mg/dL before meals <180 mg/dL all other times of the day Blood 04/25/2021 8:58 PM EST 04/25/2021 8:58 PM EST Zara Olsen MD POINT OF CARE TEST O RDERABLES Performing Organization Address [facility] de Phone Number [facility] [place] [address] * Osmolality (04/25/2021 7:10 PM EST) Osmolality 275 275 - 295 mOsm/kg [facility] Blood 04/25/2021 7:10 PM EST 04/25/2021 7:21 PM EST Narrative Resulting Agency Comment Spec In Lab Zara Olsen MD CHEMISTRY ORDERABLES Performing Organization Address [facility] de Phone Number [facility] [place] [address] * (ABNORMAL) Comprehensive metabolic panel (non-fasting) (04/25/2021 7:10 PM EST) Glucose 133 65 - 199 mg/dL [facility] Comment:Diabetes: >=200 mg/d L plus symptoms Blood Urea Nitrogen 12 8 - 18 mg/dL [facility] Creatinine 0.82 0.70 - 1.20 mg/dL [facility] Sodium 129(L) 135 - 145 mmol/L [facility] Potassium 4.1 3.5 - 5.0 mmol/L [facility] Comment: Please note: ??Patients with WBC >100,000 may have falsely elevated Potassium levels. ??For accurate Potassium quantification in these patients send serum separator tube (gold top) for subsequent determinations. ??Contact the Clinical Chemistry Laboratory if there are any questions. Chloride 100 98 - 107 mmol/L [facility] Carbon Dioxide 15(L) 22 - 31 mmol/L [facility] Anion Gap 14 5 - 15 mmol/L [facility] Calcium 7.8(L) 8.5 - 10.5 mg/dL [facility] Comment:delta result recheck ed SJJ Protein, Total 6.4 6.1 - 8.0 g/dL [facility] Albumin 3.5 3.2 - 5.2 g/dL [facility] Aspartate Aminotransferase 18 0 - 30 unit/L [facility] Alanine Aminotransferase 19 0 - 30 unit/L [facility] Alkaline Phosphatase 85 35 - 105 unit/L [facility] Bilirubin, Total 0.4 0.2 - 1.3 mg/dL [facility] Est Glomerular Filtration Rate 86 >=60 mL/min/1. 73 m?? [facility] Comment: This patient? [...] Olsen MD CHEMISTRY ORDERABLES Performing Organization Address City/[facility]/ZIP Co de Phone Number [facility] [place] [address] * (ABNORMAL) Differential, Automated (04/25/2021 6:25 PM EST) Neutrophil % 80.9 % [facility] Neutrophil Absolute 12.67(H) 1.70 - 6.10 x10(3)/mc L [facility] Lymph % 9.7 % [facility] Lymphocytes Abs 1.5 0.9 - 3.2 x10(3)/ L [facility] Monocyte % 6.4 % [facility] Monocyte Abs 1.0(H) 0.3 - 0.9 x10(3)/ L [facility] Eos % 0.1 % [facility] Eosinophils Abs 0.0 0.0 - 0.4 x10(3)/[facility] Basophil % 0.2 % [facility] Baso Absolute 0.0 0.0 - 0.1 x10(3)/ L [facility] Immature Gran % 2.70 % [facility] Comment: Immature granulocytes(IG's)percentage and absolute count will include metamyelocytes, myelocytes, and promyelocytes. Blood smears from CBCs yielding IG's will be scanned manually for concordance. If this scan disagrees with the automated IG or if promyelocytes are noted, a manual differential will be performed. Immature Gran Absolute 0.43(H) 0.00 - 0.04 x10(3)/mc L [facility] Blood 04/25/2021 6:25 PM EST 04/25/2021 6:45 PM EST Narrative Resulting Agency Comment Spec In Lab Leti Guerrero MD HEMATOLOGY ORDERABLE S Performing Organization Address City/[facility]/ZIP Co de Phone Number [facility] [place] [address] * (ABNORMAL) Hemogram (04/25/2021 6:25 PM EST) White Blood Cell 15.7(H) 4.0 - 9.5 x10(3)/[facility] Red Blood Cell 3.43(L) 4.00 - 5.21 x10(6)/mc L [facility] Hemoglobin 10.4(L) 11.7 - 15.5 g/dL [facility] Hematocrit 30.2(L) 35.7 - 45.8 % [facility] Mean Cell Volume 88.0 82.6 - 94.4 fL [facility] Mean Cell Hemoglobin 30.3 27.1 - 32.0 pg [facility] Mean Cell Hemoglobin Concentration 34.4 31.7 - 35.0 g/dL [facility] Platelet 323 145 - 357 x10(3)/[facility] RDW Standard Deviation 47.1(H) 37.0 - 46.0 [facility] RDW coefficient of variation 14.7(H) 11.5 - 14.1 % [facility] Mean Platelet Volume 9.3 7.6 - 12.9 fL [facility] NRBC% auto 0.2 % [facility] NRBC Absolute 0.030(H) 0.000 - 0.000 x10(3)/[facility] Blood 04/25/2021 6:25 PM EST 04/25/2021 6:45 PM EST Narrative Resulting Agency Comment Spec In Lab Leti Guerrero MD HEMATOLOGY ORDERABLE S [facility] [place] [address] * EKG 12 Lead (04/25/2021 5:29 PM EST) Ventricular rate 80 BPM MUSE SYSTEM Atrial Rate 80 BPM MUSE SYSTEM P-R Interval 160 ms MUSE SYSTEM QRS Duration 84 ms MUSE SYSTEM Q-T Interval 394 ms MUSE SYSTEM QTC Calculated (Bezet) 454 ms MUSE SYSTEM Calculated P [place] 41 degrees MUSE SYSTEM Calculated R [place] 3 degrees MUSE SYSTEM Calculated T [place] 21 degrees MUSE SYSTEM INTERPRETATION Normal sinus rhythm Cannot rule out Anterior infarct , age undetermined Abnormal ECG No previous ECGs available Confirmed by MD Zak, Ruddy Sarah ([id number]) on 04/26/2021 8:59:20 AM MUSE SYSTEM 04/25/2021 5:29 PM EST 04/26/2021 8:59 AM EST Zara Olsen MD ECG ORDERABLES Performing Organization Address City/[facility]/ZIP Co de Phone Number MUSE SYSTEM * POCT Glucose (04/25/2021 1:53 PM EST) [facility] Glucose, POC 153 65 - 199 mg/dL [facility] Comment: Supplemental ranges: <140 mg/dL before meals <180 mg/dL all other times of the day Blood 04/25/2021 1:53 PM EST 04/25/2021 1:53 PM EST Zara Olsen MD POINT OF CARE TEST O RDERABLES Performing Organization Address City/[facility]/ZIP Co de Phone Number [facility] [place] [address] * (ABNORMAL) Differential, Automated (04/25/2021 12:15 PM EST) [facility] Neutrophil % 83.5 % [facility] Neutrophil Absolute 11.90(H) 1.70 - 6.10 x10(3)/mc L [facility] Lymph % 9.6 % [facility] Lymphocytes Abs 1.4 0.9 - 3.2 x10(3)/mc L [facility] Monocyte % 4.1 % [facility] Monocyte Abs 0.6 0.3 - 0.9 x10(3)/mc L [facility] Eos % 0.0 % [facility] Eosinophils Abs 0.0 0.0 - 0.4 x10(3)/mc L [facility] Basophil % 0.1 % [facility] Baso Absolute 0.0 0.0 - 0.1 x10(3)/[facility] Immature Gran % 2.70 % [facility] Comment: Immature granulocytes(IG's)percentage and absolute count will include metamyelocytes, myelocytes, and promyelocytes. Blood smears from CBCs yielding IG's will be scanned manually for concordance. If this scan disagrees with the automated IG or if promyelocytes are noted, a manual differential will be performed. Immature Gran Absolute 0.39(H) 0.00 - 0.04 x10(3)/[facility] Blood 04/25/2021 12:1 5 PM EST 04/25/2021 12:50 PM EST Narrative Resulting Agency Comment Spec In Lab Leti Guerrero MD HEMATOLOGY ORDERABLE S Performing Organization Address City/State/[facility] Co de Phone Number [facility] [place] [address] * (ABNORMAL) Hemogram (04/25/2021 12:15 PM EST) White Blood Cell 14.3(H) 4.0 - 9.5 x10(3)/ L [facility] Red Blood Cell 3.44(L) 4.00 - 5.21 x10(6)/ L [facility] Hemoglobin 10.6(L) 11.7 - 15.5 g/dL [facility] Hematocrit 30.2(L) 35.7 - 45.8 % [facility] Mean Cell Volume 87.8 82.6 - 94.4 fL [facility] Mean Cell Hemoglobin 30.8 27.1 - 32.0 pg [facility] Mean Cell Hemoglobin Concentration 35.1(H) 31.7 - 35.0 g/dL [facility] Platelet 315 145 - 357 x10(3)/ L [facility] RDW Standard Deviation 47.0(H) 37.0 - 46.0 fL [facility] RDW coefficient of variation 14.8(H) 11.5 - 14.1 % [facility] Mean Platelet Volume 9.4 7.6 - 12.9 fL [facility] NRBC% auto 0.2 % [facility] NRBC Absolute 0.030(H) 0.000 - 0.000 x10(3)/mc L [facility] Blood 04/25/2021 12:1 5 PM EST 04/25/2021 12:50 PM EST Narrative Resulting Agency Comment Spec In Lab Leti Guerrero MD HEMATOLOGY ORDERABLE S [facility] [place] [address] * (ABNORMAL) Comprehensive metabolic panel (non-fasting) (04/25/2021 12:15 PM EST) Glucose 136 65 - 199 mg/dL [facility] Comment:Diabetes: >=200 mg/d L plus symptoms Blood Urea Nitrogen 11 8 - 18 mg/dL [facility] Creatinine 0.76 0.70 - 1.20 mg/dL [facility] Sodium 124(L) 135 - 145 mmol/L [facility] Potassium 4.1 3.5 - 5.0 mmol/L [facility] Comment: Please note: ??Patients with WBC >100,000 may have falsely elevated Potassium levels. ??For accurate Potassium quantification in these patients send serum separator tube (gold top) for subsequent determinations. ??Contact the Clinical Chemistry Laboratory if there are any questions. Chloride 96(L) 98 - 107 mmol/L [facility] Carbon Dioxide 16(L) 22 - 31 mmol/L [facility] Anion Gap 12 5 - 15 mmol/L [facility] Calcium 7.1(L) 8.5 - 10.5 mg/dL [facility] Protein, Total 6.5 6.1 - 8.0 g/dL [facility] Albumin 3.4 3.2 - 5.2 g/dL [facility] Aspartate Aminotransferase 20 0 - 30 unit/L [facility] Alanine Aminotransferase 18 0 - 30 unit/L [facility] Alkaline Phosphatase 88 35 - 105 unit/L [facility] Bilirubin, Total 0.4 0.2 - 1.3 mg/dL [facility] Est Glomerular Filtration Rate 94 >=60 mL/min/1. 73 m?? [facility] Comment: This patient? [...] Olsen MD CHEMISTRY ORDERABLES Performing Organization Address City/[facility]/ZIP Co de Phone Number [facility] [place] [address] * POCT Glucose (04/25/2021 10:06 AM EST) Glucose, POC 168 65 - 199 mg/dL [facility] Comment: Supplemental ranges: <140 mg/dL before meals <180 mg/dL all other times of the day Blood 04/25/2021 10:0 6 AM EST 04/25/2021 10:06 AM EST Zara Olsen MD POINT OF CARE TEST O RDERABLES [facility] [place] [address] * US OB Follow Up (04/25/2021 9:52 [...] who have questions, please contact the health sub acute care nurse that requested your imaging first. ? Bernardo Stuart, Staff Physician Electronically Signed Final Report ?? 04/25/2021 10:35 am Narrative 04/25/2021 10:36 AM EST OBSTETRICS REPORT ?(Signed Final 04/25/2021 10:35 am) PATIENT INFO: ID #: ? [id number] ?: ??[birth year] (46 yrs)(F) Name: ? EDWAR DOMINGUEZ ? Visit Date: 04/25/2021 09:47 am PERFORMED BY: Performed By: ? Kelly Hearn RDMS Attending: ?Bernardo Stuart MD Referred By: ?ZARA Josh OLSEN Location: ? [place] SERVICE(S) PROVIDED: UOBFOL - Efw - Growth ??- [place] - [id number] INDICATIONS: 33 weeks gestation of ?Z3A.33 46 [...] 04/25/2021 10:35 am) PATIENT INFO: ID #: [id number] : [birth year] (46 yrs)(F) Name: EDWAR DOMINGUEZ Visit Date: 04/25/2021 09:47 am PERFORMED BY: Performed By: Kelly Hearn RDMS Attending: Bernardo Stuart MD Referred By: ZARA OLSEN Location: [place] SERVICE(S) PROVIDED: UOBFOL - Efw - Growth - [place] - [id number] INDICATIONS: 33 weeks gestation of Z3A.33 46 [...] who have questions, please contact the health sub acute care nurse that requested your imaging first. Bernardo Stuart, Staff Physician Electronically Signed Final Report 04/25/2021 10:35 am Zara Olsen MD [facility] OB ORDERABLES * POCT Glucose (04/25/2021 9:07 AM EST) [facility] Signature Glucose, POC 174 65 - 199 mg/dL [facility] Comment: Supplemental ranges: <140 mg/dL before meals <180 mg/dL all other times of the day Blood 04/25/2021 9:07 AM EST 04/25/2021 9:07 AM EST Zara Olsen MD POINT OF CARE TEST O RDERABLES [facility] [place] [address] * POCT Glucose (04/25/2021 6:22 AM EST) Glucose, POC 195 65 - 199 mg/dL [facility] Comment: Supplemental ranges: <140 mg/dL before meals <180 mg/dL all other times of the day Blood 04/25/2021 6:22 AM EST 04/25/2021 6:22 AM EST Zara Olsen MD POINT OF CARE TEST O RDERABLES [facility] [place] [address] * (ABNORMAL) Differential, Automated (04/25/2021 6:05 AM EST) [facility] Neutrophil % 84.6 % [facility] Neutrophil Absolute 11.30(H) 1.70 - 6.10 x10(3)/mc L [facility] Lymph % 9.5 % [facility] Lymphocytes Abs 1.3 0.9 - 3.2 x10(3)/mc L [facility] Monocyte % 1.4 % [facility] Monocyte Abs 0.2(L) 0.3 - 0.9 x10(3)/mc L [facility] Eos % 0.0 % [facility] Eosinophils Abs 0.0 0.0 - 0.4 x10(3)/mc L [facility] Basophil % 0.2 % [facility] Baso Absolute 0.0 0.0 - 0.1 x10(3)/mc L [facility] Immature Gran % 4.30 % [facility] Comment: Immature granulocytes(IG's)percentage and absolute count will include metamyelocytes, myelocytes, and promyelocytes. Blood smears from CBCs yielding IG's will be scanned manually for concordance. If this scan disagrees with the automated IG or if promyelocytes are noted, a manual differential will be performed. Immature Gran Absolute 0.58(H) 0.00 - 0.04 x10(3)/mc L [facility] Blood 04/25/2021 6:05 AM EST 04/25/2021 6:42 AM EST Narrative Resulting Agency Comment Spec In Lab Leti Guerrero MD HEMATOLOGY ORDERABLE S [facility] [place] [address] * (ABNORMAL) Hemogram (04/25/2021 6:05 AM EST) White Blood Cell 13.4(H) 4.0 - 9.5 x10(3)/[facility] Red Blood Cell 3.47(L) 4.00 - 5.21 x10(6)/[facility] Hemoglobin 10.6(L) 11.7 - 15.5 g/dL [facility] Hematocrit 30.5(L) 35.7 - 45.8 % [facility] Mean Cell Volume 87.9 82.6 - 94.4 fL [facility] Mean Cell Hemoglobin 30.5 27.1 - 32.0 pg [facility] Mean Cell Hemoglobin Concentration 34.8 31.7 - 35.0 g/dL [facility] Platelet 300 145 - 357 x10(3)/[facility] RDW Standard Deviation 46.5(H) 37.0 - 46.0 fL [facility] RDW coefficient of variation 14.6(H) 11.5 - 14.1 % [facility] Mean Platelet Volume 9.4 7.6 - 12.9 fL [facility] NRBC% auto 0.1 % [facility] NRBC Absolute 0.020(H) 0.000 - 0.000 x10(3)/ L [facility] Blood 04/25/2021 6:05 AM EST 04/25/2021 6:42 AM EST Narrative Resulting Agency Comment Spec In Lab Leti Guerrero MD HEMATOLOGY ORDERABLE S [facility] [place] [address] * (ABNORMAL) Comprehensive metabolic panel (non-fasting) (04/25/2021 6:05 AM EST) Glucose 213(H) 65 - 199 mg/dL [facility] Comment:Diabetes: >=200 mg/d L plus symptoms Blood Urea Nitrogen 10 8 - 18 mg/dL [facility] Creatinine 0.74 0.70 - 1.20 mg/dL [facility] Sodium 127(L) 135 - 145 mmol/L [facility] Potassium 3.7 3.5 - 5.0 mmol/L [facility] Comment: Please note: ??Patients with WBC >100,000 may have falsely elevated Potassium levels. ??For accurate Potassium quantification in these patients send serum separator tube (gold top) for subsequent determinations. ??Contact the Clinical Chemistry Laboratory if there are any questions. Chloride 99 98 - 107 mmol/L [facility] Carbon Dioxide 14(L) 22 - 31 mmol/L [facility] Anion Gap 14 5 - 15 mmol/L [facility] Calcium 7.4(L) 8.5 - 10.5 mg/dL [facility] Comment:result rechecked-michael Protein, Total 6.4 6.1 - 8.0 g/dL [facility] Albumin 3.5 3.2 - 5.2 g/dL [facility] Aspartate Aminotransferase 18 0 - 30 unit/L [facility] Alanine Aminotransferase 19 0 - 30 unit/L [facility] Alkaline Phosphatase 86 35 - 105 unit/L [facility] Bilirubin, Total 0.4 0.2 - 1.3 mg/dL [facility] Est Glomerular Filtration Rate 97 >=60 mL/min/1. 73 m?? [facility] Comment: This patient? [...] Olsen MD CHEMISTRY ORDERABLES Performing Organization Address [facility] Phone Number [facility] [address] * (ABNORMAL) Magnesium (04/25/2021 3:50 AM EST) Magnesium 1.61(H) 0.69 - 1.07 mmol/L [facility] Blood 04/25/2021 3:50 AM EST 04/25/2021 4:02 AM EST Narrative Resulting Agency Comment Spec In Lab Zara Olsen MD CHEMISTRY ORDERABLES Performing Organization Address [facility] Phone Number [facility] [place] [address] * (ABNORMAL) POCT Glucose (04/25/2021 3:13 AM EST) Glucose, POC 237(H) 65 - 199 mg/dL [facility] Comment: Supplemental ranges: <140 mg/dL before meals <180 mg/dL all other times of the day Blood 04/25/2021 3:13 AM EST 04/25/2021 3:13 AM EST Zara Olsen MD POINT OF CARE TEST O RDERABLES Performing Organization Address [facility] [place] Phone Number [facility] [place] [address] * (ABNORMAL) Protein/Creatinine Ratio, urine (04/25/2021 1:09 AM EST) Creatinine, Urine 57 mg/dL [facility] Protein, Urine 16(H) 0 - 12 mg/dL [facility] Protein / Creatinine Ratio, Urine 0.3 ratio [facility] Urine 04/25/2021 1:09 AM EST 04/25/2021 6:40 AM EST Narrative Resulting Agency Comment Spec In Lab Zara Olsen MD URINE ORDERABLES Performing Organization Address City/[facility]/ZIP Co de Phone Number [facility] [place] [address] * (ABNORMAL) Magnesium (04/25/2021 12:31 AM EST) Pathologist [facility] [place] Magnesium 1.50(H) 0.69 - 1.07 mmol/L [facility] Blood Venous Draw / Unknown 04/25/2021 12:31 AM EST 04/25/2021 12:58 AM EST Narrative Resulting Agency Comment Spec In Lab Leti Guerrero MD CHEMISTRY ORDERABLES Performing Organization Address [facility]/ZIP Co de Phone Number [facility] [place] [address] * Type and Screen Validity (04/25/2021 12:31 AM EST) T&S only valid at [facility]ORATORY Comment:This Type and Screen result is only valid at the [facility] Blood 04/25/2021 12:3 1 AM EST 04/25/2021 12:53 AM EST Narrative Resulting Agency Comment Spec In Lab Leti Guerrero MD BLOOD BANK LAB ORDER MITRA Performing Organization Address City/[facility]/ZIP Co de Phone Number [facility] [place] [address] * ABORH Recheck Status (04/25/2021 12:31 AM EST) ABORH Type Recheck Completed [facility] Blood 04/25/2021 12:3 1 AM EST 04/25/2021 12:53 AM EST Narrative Resulting Agency Comment Spec In Lab Leti Guerrero MD BLOOD BANK LAB ORDER MITRA [facility] [place] [address] * (ABNORMAL) Differential, Automated (04/25/2021 12:31 AM EST) Neutrophil % 82.6 % [facility] Neutrophil Absolute 10.15(H) 1.70 - 6.10 x10(3)/mc L [facility] Lymph % 11.3 % [facility] Lymphocytes Abs 1.4 0.9 - 3.2 x10(3)/mc L [facility] Monocyte % 2.4 % [facility] Monocyte Abs 0.3 0.3 - 0.9 x10(3)/mc L [facility] Eos % 0.3 % [facility] Eosinophils Abs 0.0 0.0 - 0.4 x10(3)/mc L [facility] Basophil % 0.2 % [facility] Baso Absolute 0.0 0.0 - 0.1 x10(3)/mc L [facility] Immature Gran % 3.20 % [facility] Comment: Immature granulocytes(IG's)percentage and absolute count will include metamyelocytes, myelocytes, and promyelocytes. Blood smears from CBCs yielding IG's will be scanned manually for concordance. If this scan disagrees with the automated IG or if promyelocytes are noted, a manual differential will be performed. Immature Gran Absolute 0.39(H) 0.00 - 0.04 x10(3)/mc L [facility] Blood 04/25/2021 12:3 1 AM EST 04/25/2021 12:53 AM EST Narrative Resulting Agency Comment Spec In Lab Leti Guerrero MD HEMATOLOGY ORDERABLE S [facility] [place] [address] * (ABNORMAL) Hemogram (04/25/2021 12:31 AM EST) White Blood Cell 12.3(H) 4.0 - 9.5 x10(3)/mc L [facility] Red Blood Cell 3.59(L) 4.00 - 5.21 x10(6)/mc L [facility] Hemoglobin 11.0(L) 11.7 - 15.5 g/dL [facility] Hematocrit 31.7(L) 35.7 - 45.8 % [facility] Mean Cell Volume 88.3 82.6 - 94.4 fL [facility] Mean Cell Hemoglobin 30.6 27.1 - 32.0 pg [facility] Mean Cell Hemoglobin Concentration 34.7 31.7 - 35.0 g/dL [facility] Platelet 298 145 - 357 x10(3)/mc L [facility] RDW Standard Deviation 46.1(H) 37.0 - 46.0 fL [facility] RDW coefficient of variation 14.6(H) 11.5 - 14.1 % [facility] Mean Platelet Volume 9.2 7.6 - 12.9 fL [facility] NRBC% auto 0.2 % [facility] NRBC Absolute 0.020(H) 0.000 - 0.000 x10(3)/ L [facility] Blood 04/25/2021 12:3 1 AM EST 04/25/2021 12:53 AM EST Narrative Resulting Agency Comment Spec In Lab Leti Guerrero MD HEMATOLOGY ORDERABLE S Performing Organization Address City/[facility]/ZIP Co de Phone Number [facility] [place] [address] * Antibody screen (04/25/2021 12:31 AM EST) Ab Screen Interp Negative [facility] Expires at [id number] on: 04/28/2021 [facility] Blood 04/25/2021 12:3 1 AM EST 04/25/2021 12:53 AM EST Narrative Resulting Agency Comment Spec In Lab Leti Guerrero MD BLOOD BANK LAB ORDER MITRA Performing Organization Address City/[facility]/ZIP Co de Phone Number [facility] [place] [address] * ABO/Rh Typing (04/25/2021 12:31 AM EST) ABORH Type O Pos [facility] Blood 04/25/2021 12:3 1 AM EST 04/25/2021 12:53 AM EST Narrative Resulting Agency Comment Spec In Lab Leti Guerrero MD BLOOD BANK LAB ORDER MITRA Performing Organization Address City/[facility]/ZIP Co de Phone Number [facility] [place] [address] * (ABNORMAL) Comprehensive metabolic panel (non-fasting) (04/25/2021 12:31 AM EST) [facility] Signature Glucose 141 65 - 199 mg/dL [facility] Comment:Diabetes: >=200 mg/d L plus symptoms Blood Urea Nitrogen 11 8 - 18 mg/dL [facility] Creatinine 0.73 0.70 - 1.20 mg/dL [facility] Sodium 130(L) 135 - 145 mmol/L [facility] Potassium 3.8 3.5 - 5.0 mmol/L [facility] Comment: Please note: ??Patients with WBC >100,000 may have falsely elevated Potassium levels. ??For accurate Potassium quantification in these patients send serum separator tube (gold top) for subsequent determinations. ??Contact the Clinical Chemistry Laboratory if there are any questions. Chloride 101 98 - 107 mmol/L [facility] Carbon Dioxide 15(L) 22 - 31 mmol/L [facility] Anion Gap 14 5 - 15 mmol/L [facility] Calcium 8.4(L) 8.5 - 10.5 mg/dL [facility] Protein, Total 6.8 6.1 - 8.0 g/dL [facility] Albumin 3.6 3.2 - 5.2 g/dL [facility] Aspartate Aminotransferase 20 0 - 30 unit/L [facility] Alanine Aminotransferase 19 0 - 30 unit/L [facility] Alkaline Phosphatase 95 35 - 105 unit/L [facility] Bilirubin, Total 0.4 0.2 - 1.3 mg/dL [facility] Est Glomerular Filtration Rate 99 >=60 mL/min/1. 73 m?? [facility] Comment: This patient? [...] In Lab Zara Olsen MD CHEMISTRY ORDERABLES [facility] [place] [address] * Group B Streptococcus Screen (04/24/2021 11:59 PM EST) GBS Screen Pos [facility] Vaginal/Rectal 04/24/2021 11 :59 PM EST 04/25/2021 2:24 AM EST Comment:Penicillin Allergy?- >No Narrative Resulting Agency Comment Spec In Lab Leti Guerrero MD MICROBIOLOGY - [facility] AL ORDERABLES [facility] [place] [address] * COVID-19 PCR (04/24/2021 11:59 PM EST) SARS-CoV-2 RNA (Rapid) Not Detected Not Detected [facility] Comment: This result should be interpreted [...] using the Simplexa COVID-19 Direct Assay by QVIVO as authorized by the FDA issued Emergency [...] Department of Pathology and Laboratory Medicine at [facility], certified under the Clinical Laboratory Improvement Amendments [...] fact sheets at the following FDA website: https://www.fda.gov/medical-devices/yhkzoclwcej-xmqtbum-9716-bmkpa-20-kpljzbkgl- use-a mroqfsxiyvnfc-hiyrupx-vulixru/wscko-evojdzlxfek-xfvh SARS-CoV-2 Source COMPUTER 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 Co de Phone Number [facility] [place] [address] * (ABNORMAL) Group B Strep Culture Screen (04/24/2021 11:59 PM EST) Group B Streptococcus Culture Beta Hemolytic Streptococci, Group B isolated(A) [facility] Organism Beta Hemolytic Streptococci, Group B(A) [facility] Vaginal/Rectal 04/24/2021 11 :59 PM EST 04/25/2021 2:24 AM EST Comment:Penicillin Allergy?- >No Narrative Resulting Agency Comment Spec In Lab Zara Olsen MD MICROBIOLOGY - GENER AL ORDERABLES Performing Organization Address [facility] Co de Phone Number [facility] [place] [address] documented in this encounter Visit Diagnoses Diagnosis [...] Given 04/25/2021 9:15 PM EST 12 mg xnsjaahipw-wvyklkuwgaeol-tdggmwb e (Esgic) per tablet 1 tablet 1 [...] at 2050, Constipation, Routine vitamin 27 & ybyjzge-qyir-VH 60 mg iron-1 mg per tablet Tab [...] Moulton RN)1700 (Due - Provider: Gorge Thomas [facility]) enoxaparin (Lovenox) (40 mg/0.4 mL) subcutaneous injection [...] Provider: Diana Moulton RN) vitamin 27 & blzqttt-nsgt-GP 60 mg iron-1 mg per tablet Tab [...] Debo Maynard, LANE) 0521 (Given - Provider: Debo Maynard, LANE)1259 (Given - Provider: Diana Moulton, [...] Routine documented in this encounter Care Teams Hotel Engineer Relationship Specialty Start Date End Date Cielo Goncalves MD [facility] ANDI REMY [facility] [address] [place] [address] PCP - General 01/16/10 documented as of this encounter
--- OUTSIDE RECORDS SUMMARY | 2024-03-24 10:07 | XMS_ITS | Encounter Summary ---
Author Organization [facility] Address [address] [place] [address] Care Team Providers Care Make Up Operator Helper Name Role Phone Unavailable Primary Care Provider Unavailabl e Encounter Details Date Type Department Care Team (Late st Contact Info) Description 10/14/2000 Results Only [facility] - [place] conversion [address] [place] [address] Mariana Davis MD [address] [place] [address] Social History Tobacco Use Types [...] ? EDWAR DOMINGUEZ ? Accession #: ? [id number] ? : ? 1975 (Age: 25) ??F ? Collect Date: ? 10/14/2000 ? Location: ? [facility] ? Receive Date: ? 10/15/2000 ? Provider: MARIANA DAVIS MD Copy to: NERY NICHOLS MD ? Final Pathologic Diagnosis: ? Uterine cavity, evacuation of contents: 1. ?Immature, hydropic chorionic villi, ??inflamed decidua and gestational endometrium identified. 2. ?No tissue identified. ?? Document reviewed and electronically signed by: NERY ALTMAN MD Report ??Date: 10/16/2000 22:45 By [...] irregularly shaped friable soft and membranous tissue. ??Counter Maker sections of villous and membranous tissue are submitted as (A1) and (A2). ??Approximately 5% of the specimen is submitted. ??(Mayra Titus)/tim End of Report [facility] 10/14/2000 10/15/2000 8:5 2 EDT us Mariana Davis MD PATHOLOGY ORDERABLES Final Resul t [facility] [address] [place] [address] documented in this encounter Visit Diagnoses Not on filedocumented in this encounter
--- OUTSIDE RECORDS SUMMARY | 2024-03-24 10:07 | XMS_ITS | Encounter Summary ---
Author Organization [facility] Address [address] [place] [address] Care Team Providers Care Health Science Writer Name Role Phone Unavailable Primary Care Provider Unavailabl e Encounter Details Date Type Department Care Team (Late st Contact Info) Description 01/20/2001 Results Only [facility] - [place] conversion [address] [place] [address] Mariana Davis MD [address] [place] [address] Social History Tobacco Use Types [...] ? EDWAR DOMINGUEZ ? Accession #: ? [id number] : ? 1975 (Age: 26) ??F ?Collect [...] ORDERABLES Final Resul t [facility] [place] [address] [place] [address] documented in this encounter Visit Diagnoses Not on filedocumented in this encounter
--- OUTSIDE RECORDS SUMMARY | 2024-03-24 10:07 | XMS_ITS | Encounter Summary ---
Author Organization [facility] Address [address] [place] [address] Care Team Providers Care Senior Ssis Developer Name Role Phone Unavailable Primary Care Provider Unavailabl e Encounter Details Date Type Department Care Team (Late st Contact Info) Description 01/09/2000 Results Only [facility] [place] conversion [address] [place] [address] Arlene Abbott MD [address] [place] [id number] Social History Tobacco Use Types Packs/Day [...] ? EDWAR DOMINGUEZ ? Accession #: ? [id number] : ? 1975 (Age: 25) ??F ?Collect Date: ? 01/09/2000 Location: ? [facility] ? Receive Date: ? 01/11/2000 Provider: ?ARLENE ABBOTT FINANCIAL MANAGEMENT CONSULTANT Copy to: ? Specimen/Source: ?Conventional Pap Test, [...] ORDERABLES Final Re sult [facility] [place] [address] [place] [address] documented in this encounter Visit Diagnoses Not on filedocumented in this encounter
--- OUTSIDE RECORDS SUMMARY | 2024-03-24 10:07 | XMS_ITS | Encounter Summary ---
Author Organization [facility] Address [address] [place] [address] Care Team Providers Care Rehab Physician Name Role Phone Unavailable Primary Care Provider Unavailabl e Encounter Details Date Type Department Care Team (Late st Contact Info) Description 08/10/2003 Results Only [facility] [place] conversion [address] [place] [address] Alexys Foley, [facility] [address] [place] [address] Social History Tobacco Use Types [...] ? EDWAR DOMINGUEZ ? Accession #: ? [id number] : ? 1975 (Age: 28) ??F ?Collect Date: ? 08/10/2003 Location: ? [facility] ? Receive Date: ? 08/12/2003 Provider: ?ALEXYS FOLEY [facility] Copy to: ? Specimen/Source: ?ThinPrep Pap Test, [...] ORDERABLES Final R esult [facility] [place] [address] [place] [address] documented in this encounter Visit Diagnoses Not on filedocumented in this encounter
--- OUTSIDE RECORDS SUMMARY | 2024-03-24 10:07 | XMS_ITS | Encounter Summary ---
Author Organization [facility] Address [address] [place] [address] Care Team Providers Care Manager Support Name Role Phone Unavailable Primary Care Provider Unavailabl e Encounter Details Date Type Department Care Team (Late st Contact Info) Description 10/08/2001 Results Only [facility] - [place] conversion [address] [place] [address] Mariana Davis MD [address] [place] [address] Social History Tobacco Use Types [...] ng unformatted reports. Name: ? EDWAR DOMINGUEZ Hyacinth ? Accession #: ? [id number] : ? 1975 (Age: 26) ??F ?Collect [...] Final Resul t [facility] [address] [place] [address] documented in this encounter Visit Diagnoses Not on filedocumented in this encounter
[2024-03-24 15:38] LABS: HGB 11.7 g/dL (11.2-15.7); MCH 25.2 pg (27.0-33.0); MCHC 30.8 % (32.0-36.0); MCV 82 fL (80-95); MPV 9.9 fL (8.0-11.0); Platelet Count 312 10^3/uL (130-400); RBC 4.64 10^6/uL (3.93-5.22); RDW 21.7 % (11.7-14.6); RDW-SD 63.6 fL; WBC 10.76 10^3/uL (4.4-10.8)
[2024-03-24 16:15] LABS: Ferritin 31 ng/mL (8-252)
== END 2024-03-24 09:59 | disposition home or self-care (01) ==
LOC: NCHCN 09:58
PROVIDERS: PCP Family Medicine; Visit Provider Family Medicine
DX: D50.9 Iron deficiency anemia, unspecified (principal)
CPT/HCPCS: 85027; 82728

== ENCOUNTER 2024-04-25 12:37 | Emergency (ER) | payer MEDICAID, SELFPAY ==
[2024-04-25 12:41] VITALS: BP 132/87; PULSE 107; RESP 18; TEMP 36.4; O2SAT 98
--- NOTE | 2024-04-25 13:12 | W.ED.GENAD ---
Discharge Plan Disposition Patient Disposition: Home Condition: Good Discharge Details Clinical Impression: Abnormal vaginal bleeding, IUD complication, Encounter for IUD removal Primary Care Provider: Cielo Goncalves ED Provider: Julia Cintron Home Meds and New Rx's Prescriptions: Continued mesalamine [Apriso] 0.375 gram capsule,extended release 24hr 1.5 g PO BID Liletta 20.4 mcg/24 hr (8 yrs) 52 mg intrauterine device 1 device intrauterine ONCE Rx Instructions: as a single dose ferrous sulfate 325 mg (65 mg iron) tablet 325 mg PO .QOD irbesartan 300 mg tablet 300 mg PO DAILY riboflavin (vitamin B2) 400 mg tablet 400 mg PO DAILY triamcinolone acetonide 0.1 % ointment 1 applic topical BID famotidine 20 mg tablet 20 mg PO DAILY Patient Comments: TAKE ONE TABLET BY MOUTH EVERY DAY amlodipine 5 mg tablet 10 mg PO HS Patient Comments: TAKE ONE TABLET BY MOUTH EVERY DAY albuterol sulfate [Ventolin HFA] 90 mcg/actuation HFA aerosol inhaler 2 puff INHALATION Q4H Patient Comments: INHALE TWO PUFFS BY MOUTH EVERY 4 HOURS benzonatate 100 mg capsule 100 mg PO TID PRN Patient Comments: TAKE ONE CAPSULE BY MOUTH THREE TIMES A DAY codeine-guaifenesin 10-100 mg/5 mL liquid 10 ml PO QHS PRN Patient Comments: TAKE 10ML BY MOUTH EVERY 4 HOURS Discharge Instructions Instructions: IUD removal Additional Instructions: Your IUD had been coming out when you came in, the strings could be seen externally. I believe you were bleeding because of where it was laying. This was able to be removed. Please continue with pads for the vaginal bleeding. Please follow up with [facility]. Please call to schedule appointment. If you have increased bleeding, lightheadness, fevers/chills, increased pain or other new/worsening symptoms, please seek care urgently once again. Referrals: Cielo Goncalves MD [Primary Care Provider] - Carla Lala DO [OSTEOPATHIC DOCTOR] - Discharge Data Discharge Date/Time-TO BE ENTERED AT DEPARTURE: 04/25/24 13:59 HPI General Date/Time Provider Initiated Documentation: 04/25/24 13:12. Limitations to Documentation: no limitations. Information obtained by: patient, RN notes reviewed and old records reviewed. History of Present Illness 49 year old F presents to the emergency department with the chief complaint of Vaginal bleeding, cramping, described as severe, with intensity rated at 9. Quality is described as other (Cramping), and is localized to the genitals. Patient started experiencing this hour(s) and it has been constant. No relieving factors improve symptom(s), No exacerbating factors reported . Patient notes no other symptoms.. Patient did receive the following treatments prior to arrival, none Related Data Home Medications ?Medication ?Instructions ?Recorded ?Confirmed famotidine 20 mg tablet 20 mg PO DAILY 06/07/21 04/25/24 amlodipine 5 mg tablet 10 mg PO HS 06/22/21 04/25/24 ferrous sulfate 325 mg (65 mg 325 mg PO .QOD 02/09/24 04/25/24 iron) tablet irbesartan 300 mg tablet 300 mg PO DAILY 02/09/24 04/25/24 riboflavin (vitamin B2) 400 mg 400 mg PO DAILY 02/09/24 04/25/24 tablet triamcinolone acetonide 0.1 % 1 applic topical BID 02/09/24 04/25/24 topical ointment levonorgestrel 20.4 mcg/24 hr (up 1 device intrauterine ONCE 02/11/24 04/25/24 to 8 yrs) 52 mg intrauterine device (Liletta) mesalamine 0.375 gram 1.5 g PO BID 03/25/24 04/25/24 capsule,extended release 24 hr (Apriso) albuterol sulfate 90 mcg/actuation 2 puff inhalation Q4H 04/25/24 04/25/24 aerosol inhaler (Ventolin HFA) benzonatate 100 mg capsule 100 mg PO TID PRN 04/25/24 04/25/24 codeine 10 mg-guaifenesin 100 mg/5 10 ml PO QHS PRN 04/25/24 04/25/24 mL oral liquid Allergies Allergy/AdvReac Type Severity Reaction Status Date / Time sulfamethoxazole (From Allergy Severe joints Verified 04/25/24 12:43 Bactrim) swell trimethoprim (From Bactrim) Allergy Severe joints Verified 04/25/24 12:43 swell hydrochlorothiazide Allergy Intermediate joint Unverified 04/25/24 12:43 swelling hyoscyamine AdvReac Skin Rash Verified 04/25/24 12:43 CT Contrast AdvReac Skin Rash Uncoded 04/25/24 12:43 General Stated Complaint: IN FLIGHT REFUELING MANAGER MARY: 3 Review of Systems Constitutional Constitutional: Reports as per HPI, Denies chills, Denies fever(s) and Denies poor appetite Cardiovascular Cardiovascular: Denies chest pain Respiratory Respiratory: Denies cough Gastrointestinal Gastrointestinal: Denies abdominal pain, Denies change in bowel habits, Denies nausea and Denies vomiting Genitourinary Genitourinary: Reports as per HPI Musculoskeletal Musculoskeletal: Reports as per HPI and Denies back pain Integumentary/Breasts Skin/Breast: Reports as per HPI and Denies rash Exam Const General: cooperative, healthy appearing, comfortable, no acute distress, well developed and well groomed Nutritional Appearance: average body habitus and well nourished Orientation: alert and awake Resp Effort & Inspection: normal respiratory effort and no respiratory distress Cardio Rate: regular rate Rhythm: regular rhythm GI Inspection: normal to inspection Palpation: soft, no hepatosplenomegaly, not firm, no guarding, not rigid and nontender External Female Exam: normal external appearance (IUD string visible), no tenderness externally and no lesions Speculum Exam - Vagina: normal appearance of the vagina, not erythematous, vaginal bleeding and nontender Speculum Exam - Cervix: normal appearance of the cervix OB/External & Speculum: vaginal bleeding Skin General skin exam: no rashes or lesions noted Trauma: no lacerations or abrasions Neuro General: patient alert and patient awake Cognition: normal cognition Speech: speech normal Gait: normal gait Course Vital Signs Vital signs: Vital Signs Temperature 36.4 C L 04/25/24 12:41 Pulse 107 H 04/25/24 12:41 Respiratory Rate 18 04/25/24 12:41 Blood Pressure 132/87 04/25/24 12:41 Pulse Oximetry 98 04/25/24 12:41 Temperature 36.4 C L 04/25/24 12:41 Pulse 107 H 04/25/24 12:41 Respiratory Rate 18 04/25/24 12:41 Blood Pressure 132/87 04/25/24 12:41 Pulse Oximetry 98 04/25/24 12:41 Medical Decision Making Patient is a pleasant 49-year-old female presenting with complaint of vaginal bleeding. Patient has an IUD in place and had been doing well with this, menses have been lightening. However, she reports that after having recent illness she began having significant vaginal bleeding starting this morning. Was able to visualize the IUD strings. She did contact women[facility] wellness who advised that she could remove this on her own. Patient did attempt this was unsuccessful as she is not able to get good medical payment poster on the strings. She reports that she has significant cramping. Denies any fevers or chills. Has had an upper respiratory cold and is questioning if this may be associated with forceful coughing. Patient denies any recent sexual activity. On exam, patient appears nontoxic. Resting comfortably no acute distress. Exam of the abdomen is benign. Exam of her external genitalia shows the IUD strings. As patient reports that she already spoke with IN FLIGHT REFUELING MANAGER and they had encouraged her to remove the IUD at home, this was able to be gently removed by myself with light constant pressure. I did not meet any resistance and this was able to be readily removed. Immediately after removal, patient did have improvement of the cramping. Will have to monitor for the bleeding but I presume that this is associated with the location of the IUD, possibly within the cervical os. This removal was then followed with evaluation with speculum and while there was some amount of bleeding, this did not appear to be any significant bleeding or hemorrhage. She tolerated the exam well and not note any evidence to suggest trauma. I advised that she continue with pads. The IUD was intact and she will follow-up with IN FLIGHT REFUELING MANAGER regarding placement or further management to prevent future . We did discuss that she is no longer covered in this regard and is now at risk for should she have unprotected sex. Return precautions were discussed. Not see need for antibiotics or other evaluation at this point. No evidence to suggest hemorrhagic shock or sepsis. Patient discharged to home in stable condition. All of her questions and concerns were addressed and she is in agreement this plan. This documentation was generated using Pokelaboation system, please disregard any oddities of phrase or misspellings. Quality:[facility] Health Related Social Needs: No Data to Display [facility] All Active Problems (Updated 04/25/24 @ 13:47 by MICHAEL Gonzalez) Encounter for IUD removal (Acute) IUD complication (Acute) Abnormal vaginal bleeding (Acute) Disorder of the skin and subcutaneous tissue, unspecified (Acute) Anxiety (Chronic) Hypertension (Chronic) Numbness of right hand (Acute) Ulcerative colitis (Chronic) Takes Apriso, Sees Dr. Clay in [facility] Chronic kidney disease (CKD) stage G3a/A1, moderately decreased glomerular filtration rate (GFR) between 45-59 mL/min/1.73 square meter and albuminuria creatinine ratio less than 30 mg/g (Acute) Medical History (Updated 04/25/24 @ 13:47 by MICHAEL Gonzalez) Menorrhagia Liletta IUD placed 02/11/24 Endo bx: benign polypoid tissue Presence of Liletta IUD Liletta IUD placed 02/11/24 for menorrhagia Mitral valve regurgitation Eczema Obesity GERD (gastroesophageal reflux disease) Headache Acne History of anemia History of cardiac arrhythmia during surgery only, follow up testing negative Depression prozac in the past Clostridium difficile colitis Surgical History (Updated 02/11/24 @ 10:06 by Debo Tamayo MD) History of delivery 04/29/2021. [facility] at 30 4W 1D EGA. Preeclampsia imposed on chronic hypertension. Female 6 pounds 1 ounce (275 0 g) Paige May History of colonoscopy proctitis 10/03/2004 Previous back surgery heart arrhythmia during surgery Hx of cholecystectomy 02/03/2006 S/P knee surgery right 02/24/1990 S/P hernia surgery 02/24/1979 Family History (Updated 02/09/24 @ 10:23 by Norma Green RN) Father Hypertension Parkinsons disease ?PSP Diabetes Mother Hypertension Rheumatoid arthritis Thyroid disease Cataract Hyperlipidemia Diabetes Osteoarthritis Maternal Grandmother Diabetes Colon cancer Stroke Paternal Grandmother Diabetes Maternal Grandfather Hypertension Aunt Breast cancer Social History Smoking/Tobacco Use Status: Never Smoking risk assessment performed?: Yes Alcohol Intake: never Drug use: Never Substance use type: does not use Do you feel safe at home: Yes Do you feel safe in your relationship?: Yes History History 8 Para 5 Hx # Term Pregnancies 5 Multiple births Hx # Pregnancies Ectopic pregnancies AB induced Hx Number of Living Children AB spontaneous 3 Past Pregnancies Del. Date GA/Weeks # Preg Succ Route Wgt Sex Labor Lgth Anesthesia Location Prov Complic 05/23/96 36 No vaginal 2721.554 g Female local [facility] 10/21/98 40 No vaginal 3827.186 g Male Cielo SAMPSON hemorrhage 08/27/01 40 No vaginal 3742.137 g Male Ivanna 09/28/05 40 No vaginal Male short Ivanna 04/29/21 34 No Female [facility] Delivery Date: 05/23/96 Last Updated by: Leigha Roberson CNM PROM preeclampsia Delivery Date: 10/21/98 Last Updated by: Leigha Roberson CNM Saulo, hemorrhage Delivery Date: 08/27/01 Last Updated by: Leigha Roberson CNM Stevan Delivery Date: 09/28/05 Last Updated by: Leigha Roberson CNM Adelso Delivery Date: 04/29/21 Last Updated by: Herbie Vincent. 34wk transfer to [facility] for PEC with severe features, ECV for transverse lie, then IOL, the baby was transverse again and emergent CS was done. Maternal bradycardia to 27 during CS. Significant EBL during section but only received IV iron post-op (Hb 8). Baby home PPD#9.
--- NOTE | 2024-04-25 13:47 | NUR.NOTE ---
present with PA during pelvic exam, IUD removed by PA Nursing Note:
[2024-04-25 13:58] VITALS: BP 160/95; PULSE 93; RESP 20; O2SAT 96
== END 2024-04-25 13:59 | disposition home or self-care (01) ==
PROVIDERS: Emergency Provider Physician Assistant; PCP Family Medicine
DX: N93.9 Abnormal uterine and vaginal bleeding, unspecified (principal); T83.32XA Displacement of intrauterine contraceptive device, initial encounter; I12.9 Hypertensive chronic kidney disease with stage 1 through stage 4 chronic kidney disease, or unspecified chronic kidney disease; N18.31 Chronic kidney disease, stage 3a
CPT/HCPCS: 99283

== ENCOUNTER 2024-05-07 10:49 | Outpatient (REF) | payer MEDICAID, SELFPAY ==
--- NOTE | 2024-05-07 10:31 | NASALBX_PTH ---
PATIENT: Nilda Parish LOC: [facility] U#:[id number] AGE/SX: 49/F ROOM: RE05/07/[address]: MICHAEL Sandoval : 1975 BED: DIS: 05/07/2024 SPEC #: [id number] RECD: 05/07/24 17:42 STATUS: LAINE REQ #: [id number] SATNAM: 05/07/24 10:[address]: Zaire Saldana DEPT: Surgical Specimen RECD BY: Kristina Claire ENTERED: 05/07/24 17:43 SP TYPE: NASALBX OTHR DR: Cielo Goncalves Tissues: 1 - MUCOSA, NOS Procedures: SKIN LEVEL 4 Comments: [id number]
== END 2024-05-07 10:50 | disposition home or self-care (01) ==
LOC: LBN 10:49
PROVIDERS: PCP Family Medicine; Visit Provider Physician Assistant
DX: D10.6 Benign neoplasm of nasopharynx (principal); D49.2 Neoplasm of unspecified behavior of bone, soft tissue, and skin; D22.9 Melanocytic nevi, unspecified; L98.9 Disorder of the skin and subcutaneous tissue, unspecified
CPT/HCPCS: 88305

== ENCOUNTER 2024-06-06 20:17 | Emergency (ER) | payer MEDICAID, SELFPAY ==
[2024-06-06] VITALS (36 sets, daily range): BP systolic 136–183; BP diastolic 84–102; PULSE 88–117; RESP 12–29; TEMP 36.6; O2SAT 97–100
--- NOTE | 2024-06-06 20:15 | RT.EKG_ITS ---
APPROVED REPORT Exam: Resting ECG Reason for Exam: chest pain Patient Location: E HR:114 bpm ECG Measurements Heart Rate 114 AXIS OK 167 P 46 QRSd 85 QRS -5 QT 319 T 31 QTc 439 Conclusion Sinus tachycardia...rate> 99 Probable left atrial enlargement...P >50mS, <-0.10mV V1
--- NOTE | 2024-06-06 20:30 | DI.RAD_ITS ---
Exam(s) XR PORTABLE CHEST AP EXAM: XR PORTABLE CHEST AP CLINICAL HISTORY: chest pain. TECHNIQUE: 2D digital imaging was performed. COMPARISON: CR XR RIBS BI INCLUDE CHEST from 10/11/2019 FINDINGS: Single AP portable view. Heart size is upper normal. The mediastinum is not widened. Lungs are clear. No infiltrates nor obvious pleural effusions. IMPRESSION: No acute pulmonary findings on this single AP portable view of the chest. DATA REPOSITORY: RADIATION DOSE DELIVERED:
--- NOTE | 2024-06-06 20:32 | W.ED.GENAD ---
Discharge Plan Disposition Patient Disposition: Home Condition: Good Discharge Details Clinical Impression: Chest pain Primary Care Provider: Cielo Goncalves ED Provider: Tom Guillen Home Meds and New Rx's Prescriptions: No Action mesalamine [Apriso] 0.375 gram capsule,extended release 24hr 1.5 g PO BID medroxyprogesterone 10 mg tablet 10 mg PO DAILY 30 Days Qty: 30 8RF ferrous sulfate 325 mg (65 mg iron) tablet 325 mg PO .QOD irbesartan 300 mg tablet 300 mg PO DAILY riboflavin (vitamin B2) 400 mg tablet 400 mg PO DAILY triamcinolone acetonide 0.1 % ointment 1 applic topical BID famotidine 20 mg tablet 20 mg PO DAILY Patient Comments: TAKE ONE TABLET BY MOUTH EVERY DAY amlodipine 5 mg tablet 10 mg PO HS Patient Comments: TAKE ONE TABLET BY MOUTH EVERY DAY albuterol sulfate [Ventolin HFA] 90 mcg/actuation HFA aerosol inhaler 2 puff INHALATION Q4H Patient Comments: INHALE TWO PUFFS BY MOUTH EVERY 4 HOURS benzonatate 100 mg capsule 100 mg PO TID PRN Patient Comments: TAKE ONE CAPSULE BY MOUTH THREE TIMES A DAY codeine-guaifenesin 10-100 mg/5 mL liquid 10 ml PO QHS PRN Patient Comments: TAKE 10ML BY MOUTH EVERY 4 HOURS Discharge Instructions Instructions: Chest Pain (DC) Additional Instructions: You were seen in the emergency department for chest and left shoulder pain among other symptoms. We performed labs, EKG, and chest x-ray that were unremarkable. We repeated your cardiac enzyme blood test and they remained unremarkable. Your symptoms improved. The exact cause of your symptoms is not known. You should follow-up with your primary care doctor to consider additional testing. If you develop recurrent symptoms, chest pain, shortness of breath, or other symptoms that are worrisome to you then please return to the emergency department. Referrals: Cielo Goncalves MD [Primary Care Provider] - 1 week HPI General Mode of arrival: ambulatory. Date/Time Provider Initiated Documentation: 06/06/24 20:19. Limitations to Documentation: no limitations. Information obtained by: patient. HPI Narrative: This is a 49-year-old female who presents with chest pain. She has a history of ulcerative colitis, headaches, GERD, hypertension. She felt well all day today. At around 5:00 she said she felt off. She had some chest pressure and pain in her left shoulder. No shortness of breath. Some nausea. She has had a few episodes of loose stool. No abdominal pain. No fevers or chills. Slight headache that resolved. Says that most of the symptoms have improved but mainly complaining of the nausea and the left shoulder pain at this time. No recent surgeries or procedures. No recent travel. No cough or fever. No hemoptysis. No leg pain, swelling, redness. Related Data Home Medications ?Medication ?Instructions ?Recorded ?Confirmed famotidine 20 mg tablet 20 mg PO DAILY 06/07/21 06/06/24 amlodipine 5 mg tablet 10 mg PO HS 06/22/21 06/06/24 ferrous sulfate 325 mg (65 mg 325 mg PO .QOD 02/09/24 06/06/24 iron) tablet irbesartan 300 mg tablet 300 mg PO DAILY 02/09/24 06/06/24 riboflavin (vitamin B2) 400 mg 400 mg PO DAILY 02/09/24 06/06/24 tablet triamcinolone acetonide 0.1 % 1 applic topical BID 02/09/24 06/06/24 topical ointment mesalamine 0.375 gram 1.5 g PO BID 03/25/24 06/06/24 capsule,extended release 24 hr (Apriso) albuterol sulfate 90 mcg/actuation 2 puff inhalation Q4H 04/25/24 06/06/24 aerosol inhaler (Ventolin HFA) benzonatate 100 mg capsule 100 mg PO TID PRN 04/25/24 06/06/24 codeine 10 mg-guaifenesin 100 mg/5 10 ml PO QHS PRN 04/25/24 06/06/24 mL oral liquid medroxyprogesterone 10 mg tablet 10 mg PO DAILY AUB 30 days #30 05/27/24 06/06/24 tabs Previous Rx's ?Medication ?Instructions ?Recorded medroxyprogesterone 10 mg tablet 10 mg PO DAILY AUB 30 days #30 05/27/24 tabs Allergies Allergy/AdvReac Type Severity Reaction Status Date / Time sulfamethoxazole (From Allergy Severe joints Verified 06/06/24 20:24 Bactrim) swell trimethoprim (From Bactrim) Allergy Severe joints Verified 06/06/24 20:24 swell hydrochlorothiazide Allergy Intermediate joint Unverified 06/06/24 20:24 swelling hyoscyamine AdvReac Skin Rash Verified 06/06/24 20:24 CT Contrast AdvReac Skin Rash Uncoded 06/06/24 20:24 General Stated Complaint: Chest Pain MARY: 3 Review of Systems Constitutional Constitutional: Denies chills, Denies fever(s) and Reports headache(s) Eyes Eyes: Denies change in vision ENT Ears, Nose, Mouth, and Throat: Reports headache(s) and Denies odynophagia Cardiovascular Cardiovascular: Reports chest pain and Denies dyspnea Respiratory Respiratory: Denies dyspnea Gastrointestinal Gastrointestinal: Denies abdominal pain, Reports diarrhea, Reports nausea, Denies odynophagia, Denies vomiting and Denies hematemesis Genitourinary Genitourinary: Reports menorrhagia and Denies dysuria Musculoskeletal Musculoskeletal: Denies myalgias Integumentary/Breasts Skin/Breast: Denies changing lesions Neurologic Neurologic: Denies behavioral changes and Reports headache(s) Psychiatric Psychiatric: Denies behavioral changes Endocrine Endocrine: Denies heat intolerance Hematologic/Lymphatic Hematologic/Lymphatic: Denies lymphadenopathy Exam Const General: cooperative Nutritional Appearance: average body habitus Orientation: alert, awake and oriented x3 HENMT Head: normal to inspection Ears: external ears normal Mouth: moist mucous membranes Eyes Pupils: PERRL EOM: EOM intact bilaterally and No nystagmus Neck Neck: full ROM and no tracheal deviation Chest Chest: normal inspection of the chest Resp Auscultation: clear to auscultation bilaterally Cardio Rate: regular rate Rhythm: regular rhythm GI Inspection: normal to inspection Palpation: soft, no guarding, not rigid and nontender Back/Spine/Pelvis Back: No no CVA tenderness Thoracic/Lumbar Spine: thoracic and lumbar spine normal to inspection Skin General skin exam: no rashes or lesions noted Neuro General: patient alert, patient awake and patient oriented x3 Cranial Nerves: CN's II-XI intact bilaterally, PERRL and no nystagmus Cognition: normal cognition Motor: muscle tone normal throughout and strength 5/5 throughout Sensory Exam: no sensory deficits noted Extrem General: normal to inspection Course Vital Signs Vital signs: Vital Signs Temperature 36.6 C 06/06/24 20:20 Pulse 117 H 06/06/24 20:20 Respiratory Rate 06/06/24 20:20 Blood Pressure 183/102 H 06/06/24 20:20 Pulse Oximetry 99 06/06/24 20:20 Temperature 36.6 C 06/06/24 20:20 Pulse 117 H 06/06/24 20:20 Respiratory Rate 20 06/06/24 20:20 Blood Pressure 183/102 H 06/06/24 20:20 Blood Pressure Position Sitting 06/06/24 20:20 Pulse Oximetry 99 06/06/24 20:20 Oxygen Delivery Method Room Air 06/06/24 20:20 Oxygen Flow Rate 0 06/06/24 20:20 Medical Decision Making 49-year-old female presents with chest pain and left shoulder pain. Initial EKG is showing sinus tachycardia with no ischemic changes. Could represent an episode of arrhythmia that resolved and we will keep her on the lunchroom monitor. Will send cardiac enzymes to evaluate for ACS or myocarditis. Will get chest x-ray to look for pneumonia or pneumothorax. Will check D-dimer to evaluate for pulmonary embolism in this low risk patient. Will send broad labs to look for electrolyte or metabolic cause of the patient's symptoms such as hypokalemia, hyponatremia, acute renal dysfunction. Given her referral to the left shoulder we will check biliary labs look for signs hepatitis, pancreatitis, or other biliary obstruction. Will await initial testing and reevaluate. Re-eval Cardiac enzymes unremarkable. Chest x-ray and broad labs unremarkable. D-dimer negative. Symptoms improved here. Unclear cause of chest pain. Told to follow-up with her primary. Will discharge with return precautions. Medical Records Medical records reviewed: Yes I reviewed the patient's medical records. Imaging Data Radiologic Study: Attestation: I personally reviewed and interpreted this imaging study as follows: Imaging: X-Ray (chest) My impression: Unremarkable Radiologist's impression: Unremarkable Lab Data Lab results reviewed: Yes I reviewed the patient's lab results. Lab results narrative: Broad labs unremarkable. ECG Data Attestation: I personally reviewed and interpreted this ECG (s) as follows: Prior ECG tracings: available for review Interpretation: Sinus tachycardia with no ischemic changes and no ST or T wave changes. Normal axis and PA intervals. Otherwise unremarkable EKG and similar to prior. Quality:SDOH Health Related Social Needs: No Data to Display PFSH All Active Problems (Updated 06/06/24 @ 22:49 by Tom Guillen MD) Chest pain (Acute) Benign mole (Acute) Abnormal skin growth (Acute) Menorrhagia (Acute) Now on progesterone with good effect. Liletta IUD placed 02/11/24 - coming out and removed in ED 04/25/24 Endo bx: benign polypoid tissue Disorder of the skin and subcutaneous tissue, unspecified (Acute) Anxiety (Chronic) Hypertension (Chronic) Numbness of right hand (Acute) Ulcerative colitis (Chronic) Takes Apriso, Sees Dr. Clay in [facility] Chronic kidney disease (CKD) stage G3a/A1, moderately decreased glomerular filtration rate (GFR) between 45-59 mL/min/1.73 square meter and albuminuria creatinine ratio less than 30 mg/g (Acute) Medical History Mitral valve regurgitation Eczema Obesity GERD (gastroesophageal reflux disease) Headache Acne History of anemia History of cardiac arrhythmia during surgery only, follow up testing negative Depression prozac in the past Clostridium difficile colitis Surgical History History of delivery 04/29/2021. [facility] at 30 4W 1D EGA. Preeclampsia imposed on chronic hypertension. Female 6 pounds 1 ounce (275 0 g) Paige May History of colonoscopy proctitis 10/03/2004 Previous back surgery heart arrhythmia during surgery Hx of cholecystectomy 02/03/2006 S/P knee surgery right 02/24/1990 S/P hernia surgery 02/24/1979 Family History Father Hypertension Parkinsons disease ?PSP Diabetes Mother Hypertension Rheumatoid arthritis Thyroid disease Cataract Hyperlipidemia Diabetes Osteoarthritis Maternal Grandmother Diabetes Colon cancer Stroke Paternal Grandmother Diabetes Maternal Grandfather Hypertension Aunt Breast cancer Social History Smoking/Tobacco Use Status: Never Smoking risk assessment performed?: Yes Alcohol Intake: never Drug use: Never Substance use type: does not use Do you feel safe at home: Yes Do you feel safe in your relationship?: Yes History History 8 Para 5 Hx # Term Pregnancies 5 Multiple births Hx # Pregnancies Ectopic pregnancies AB induced Hx Number of Living Children AB spontaneous 3 Past Pregnancies Del. Date GA/Weeks # Preg Succ Route Wgt Sex Labor Lgth Anesthesia Location Prov Complic 05/23/96 36 No vaginal 2721.554 g Female local [facility] [place] 10/21/98 40 No vaginal 3827.186 g Male [place], Cielo Fitz[place] hemorrhage 08/27/01 40 No vaginal 3742.137 g Male Ivanna 09/28/05 40 No vaginal Male short Ivanna 04/29/21 34 No Female [facility] [place] Delivery Date: 05/23/96 Last Updated by: Leigha Roberson CNM PROM preeclampsia Delivery Date: 10/21/98 Last Updated by: Leigha Roberson CNM Saulo, hemorrhage Delivery Date: 08/27/01 Last Updated by: Leigha Roberson CNM Stevan Delivery Date: 09/28/05 Last Updated by: Leigha Roberson CNM [place] Delivery Date: 04/29/21 Last Updated by: Herbie Vincent. 34wk transfer to [facility] for PEC with severe features, ECV for transverse lie, then IOL, the baby was transverse again and emergent CS was done. Maternal bradycardia to 27 during CS. Significant EBL during section but only received IV iron post-op (Hb 8). Baby home PPD#9.
[2024-06-06 20:44] LABS: Abs Immature Grans 0.06 10^3/uL (0.0-0.06); Absolute Basophil Count 0.03 10^3/uL (0.0-0.2); Absolute Eosinophil Count 0.11 10^3/uL (0.0-0.7); Absolute Lymphocyte Count 2.42 10^3/uL (1.2-3.4); Absolute Monocyte Count 0.89 10^3/uL (0.1-0.8); Absolute Neutrophil Count 6.15 10^3/uL (1.2-6.7); Basophils % 0.3 %; Eosinophils % 1.1 %; HGB 12.7 g/dL (11.2-15.7); Immature Grans % 0.6 %; Lymphocytes % 25.1 %; MCH 28.9 pg (27.0-33.0); MCHC 33.4 % (32.0-36.0); MCV 87 fL (80-95); Monocytes % 9.2 %; Neutrophils % 63.7 %; Platelet Count 331 10^3/uL (130-400); RBC 4.39 10^6/uL (3.93-5.22); RDW 13.9 % (11.7-14.6); RDW-SD 43.7 fL; WBC 9.66 10^3/uL (4.4-10.8)
[2024-06-06 21:04] LABS: ALT 29 U/L (14-59); AST 17 U/L (15-37); Alkaline Phosphatase 63 U/L (46-116); Anion Gap 14.1 mmol/L (3-11); BUN 11 mg/dL (7-18); Bilirubin, Total 0.3 mg/dL (0.2-1.0); CO2 21.9 mmol/L (21.0-32.0); CREATININE 1.1 mg/dL (0.55-1.02); Calcium 9.3 mg/dL (8.5-10.1); Chloride 105 mmol/L (98-107); Glucose 179 mg/dL (74-106); Lipase 84 U/L (<78); NT-proBNP 14 pg/mL (<300); Potassium 3.6 mmol/L (3.5-5.1); Sodium 141 mmol/L (136-145); TSH (W/Ref FT4) 1.09 uIU/mL (0.36-3.74); Total Protein 7.9 g/dL (6.4-8.2); Troponin I 4 ng/L (<or=51)
[2024-06-06 21:42] LABS: D-Dimer 387 ng/mlFEU (<500)
--- NOTE | 2024-06-06 21:50 | DI.VRAD_ITS ---
PROCEDURE INFORMATION: Exam: XR Chest Exam date and time: 06/06/2024 8:49 PM Age: 49 years old Clinical indication: Other: Chest pain TECHNIQUE: Imaging protocol: Radiologic exam of the chest. Views: 1 view. COMPARISON: CR XR RIBS BI INCLUDE CHEST 10/11/2019 9:21 AM FINDINGS: Lungs: Unremarkable. No consolidation. Pleural spaces: Unremarkable. No pleural effusion. No pneumothorax. Heart/Mediastinum: Unremarkable. No cardiomegaly. Bones/joints: Unremarkable. IMPRESSION: No acute findings. Dictated and Authenticated by: Leopoldo Garduno MD. Orderin Mindy Santos MD
[2024-06-06 21:57] LABS: Troponin I 4 ng/L (<or=51)
[2024-06-06] MEDS: Ketorolac 30 MG/ML VIAL IVP (22:19)
[2024-06-06] MEDS: Acetaminophen 500 MG TAB 1000 MG PO (22:19)
[2024-06-06 23:38] LABS: Troponin I 5 ng/L (<or=51)
== END 2024-06-06 23:43 | disposition home or self-care (01) ==
PROVIDERS: Emergency Provider Student in an Organized Health Care Education/Training Program; PCP Family Medicine
DX: R07.9 Chest pain, unspecified (principal); I12.9 Hypertensive chronic kidney disease with stage 1 through stage 4 chronic kidney disease, or unspecified chronic kidney disease; N18.31 Chronic kidney disease, stage 3a
CPT/HCPCS: 36415; 80053; 83690; 93005; 96374; 99285; 71045; 83735; 83880; 84443; 84484; 84703; 85025; 85379; 93010; 99284; J1885

== ENCOUNTER 2024-06-30 00:26 | Outpatient (CLI) | payer MEDICAID, SELFPAY ==
--- NOTE | 2024-06-30 06:15 | DI.US_ITS ---
Exam(s) US PELVIS TRANSVAGINAL EXAM: US PELVIS TRANSVAGINAL CLINICAL HISTORY: abnormal bleeding,menorrhagia,n92.0 TECHNIQUE: Transabdominal and transvaginal imaging was performed using standard protocol. COMPARISON: CT ABD PELVIS WITH CONTRAST from 04/16/2016 FINDINGS: UTERUS: Anteverted. 10.5 x 5.2 x 6.2 cm Endometrium: Not well seen, measured at 6 mm in thick Myometrium: Heterogeneous. scar. Anterior fibroid measuring 3.9 cm maximal dimension. Sm all posterior fibroid measuring 1.8, 2.4 and 2.0 cm in maximal dimension. Cervix: Nabothian cyst. OVARIES: Right: Cyst or mass: None. Left: Cyst or mass: None. DOPPLER: Color: Symmetric and uniform flow to both ovaries. No hyperemia. CUL-DE-SAC: Free fluid: None. IMPRESSION: 1. Mildly enlarged uterus with heterogeneous myometrium and several small fibroids. Endometrial stri pe is not well seen but grossly normal at 6 millimeters in thickness.. 2. Unremarkable bilateral ovaries. DATA REPOSITORY:
== END 2024-06-30 00:46 ==
LOC: DI 00:28
PROVIDERS: PCP Family Medicine; Visit Provider Obstetrics & Gynecology
DX: N92.0 Excessive and frequent menstruation with regular cycle (principal)
CPT/HCPCS: 76830; 76856

== ENCOUNTER 2024-07-05 14:07 | Outpatient (REF) | payer MEDICAID, SELFPAY ==
[2024-07-05 16:23] LABS: Anion Gap 12.1 mmol/L (3-11); BUN 17 mg/dL (7-18); CO2 22.9 mmol/L (21.0-32.0); Calcium 9.8 mg/dL (8.5-10.1); Chloride 104 mmol/L (98-107); Estimated GFR 69.06 (mL/min/1.73m2); Glucose 100 mg/dL (74-106); Potassium 4.1 mmol/L (3.5-5.1); Sodium 139 mmol/L (136-145)
== END 2024-07-05 14:08 | disposition home or self-care (01) ==
LOC: NCHCN 14:07
PROVIDERS: PCP Family Medicine; Visit Provider Family Medicine
DX: I10 Essential (primary) hypertension (principal)
CPT/HCPCS: 80048

== ENCOUNTER 2024-08-04 02:46 | Outpatient (CLI) | payer MEDICAID, SELFPAY ==
--- NOTE | 2024-08-04 08:06 | DI.MAMMO_ITS ---
Exam(s) MAMMO SCREENING EXAM: MAMMO SCREENING CLINICAL HISTORY: Z12.31 Screening TECHNIQUE: Bilateral full field digital CC and MLO mammographic images were obtained with 3D tomosyn thesis and utilizing computer aided detection (CAD). COMPARISON: Comparison is made with prior examinations. FINDINGS: Masses/Architectural Distortion: No suspicious masses or areas of architectural distortion are presen t. Microcalcifications: No suspicious pleomorphic-type are seen. Skin Thickening/Nipple Retraction: None. IMPRESSION: 1. No significant interval change with no specific features of malignancy noted. 2. Unless there is more urgent need, screening mammography is recommended, as per [employer] guidelines. BI-RADS Category 1 - Negative Breast Density - Category C - The breast are heterogeneously dense, which may obscure small masses. Breast density Category C or D implies that the patient has dense breast tissue. Dense breast tissue can make it harder to find cancer on a mammogram. Dense breast tissue is also associated with an incr eased risk of breast cancer. This information about the result of the mammogram report was provided to the patient to raise their awareness. Use this report when you speak with the patient about their risks for breast cancer, which includes their family history. At that time, you may recommend additional screening tests (Ultrasoun d or MRI) as these tests may add significant information. A negative radiographic report should not delay biopsy if a dominant or clinically suspicious mass is present. Up to ten percent of cancers are not identified on mammography. A negative report may reinforce clinical impression. Adenosis and dense breasts may obscure an underlying neoplasm. False positive reports average 6 to 10%. Patient will receive a letter notifying them of these results.
== END 2024-08-04 03:06 ==
LOC: DI 02:47
PROVIDERS: PCP Family Medicine; Visit Provider Family Medicine
DX: Z12.31 Encounter for screening mammogram for malignant neoplasm of breast (principal); R92.333 Mammographic heterogeneous density, bilateral breasts
CPT/HCPCS: 77063; 77067

== ENCOUNTER 2024-09-13 20:10 | Outpatient (REF) | payer MEDICAID, SELFPAY ==
[2024-09-13 21:44] LABS: Glucose Negative (Negative)
== END 2024-09-13 20:11 | disposition home or self-care (01) ==
LOC: NCHCN 20:10
PROVIDERS: PCP Family Medicine; Visit Provider Family Medicine
DX: R39.9 Unspecified symptoms and signs involving the genitourinary system (principal); R82.89 Other abnormal findings on cytological and histological examination of urine
CPT/HCPCS: 81003

== ENCOUNTER 2024-09-14 16:09 | Emergency (ER) | payer MEDICAID, SELFPAY ==
[2024-09-14 16:11] VITALS: BP 132/83; PULSE 62; RESP 20; TEMP 36.7; O2SAT 98
[2024-09-14 16:21] VITALS: BP 132/83; PULSE 62; RESP 20; TEMP 36.7; O2SAT 98
[2024-09-14 16:41] LABS: Glucose 100 mg/dL (Negative)
[2024-09-14 16:49] LABS: C & S Indicated? No; RBC 0-2 HPF (0-2)
--- NOTE | 2024-09-14 17:21 | W.ED.GENAD ---
Discharge Plan Disposition Patient Disposition: Home Discharge Details Clinical Impression: Acute cystitis Primary Care Provider: Cielo Goncalves ED Provider: Carla Trevino Home Meds and New Rx's Prescriptions: New nitrofurantoin monohyd/m-cryst [Macrobid] 100 mg capsule 100 mg PO BID Qty: 9 0RF Rx Instructions: must administer with a meal/food Continued mesalamine [Apriso] 0.375 gram capsule,extended release 24hr 1.5 g PO BID spironolactone 25 mg tablet 25 mg PO DAILY ferrous sulfate 325 mg (65 mg iron) tablet 325 mg PO .QOD irbesartan 300 mg tablet 300 mg PO DAILY riboflavin (vitamin B2) 400 mg tablet 400 mg PO DAILY medroxyprogesterone 10 mg tablet 10 mg PO DAILY 30 Days Qty: 90 3RF famotidine 20 mg tablet 20 mg PO DAILY Patient Comments: TAKE ONE TABLET BY MOUTH EVERY DAY amlodipine 5 mg tablet 10 mg PO HS Patient Comments: TAKE ONE TABLET BY MOUTH EVERY DAY phentermine 15 mg capsule 15 mg PO DAILY Patient Comments: TAKE ONE CAPSULE BY MOUTH EVERY DAY omeprazole 40 mg capsule,delayed release(DR/EC) 40 mg PO .q meal Patient Comments: TAKE ONE CAPSULE BY MOUTH EVERY DAY 30 MINUTES BEFORE THE EVENING MEAL Discharge Instructions Instructions: Urinary Tract Infection, Adult ED Additional Instructions: Macrobid twice a day for the next 5 days. You can continue to use pyridium at home. Call your primary care doctor in the morning to discuss your visit here and to followup on your culture results from the office and whether or not you should continue your antibiotic. Schedule an appointment for within the following 48 hours to followup on your visit today. Return to the emergency department for new or worsening symtpoms including fever, flank pain, or if your symptoms to do not improve after 48 hours on antibiotics. HPI General Mode of arrival: ambulatory. Date/Time Provider Initiated Documentation: 09/14/24 16:14. Limitations to Documentation: no limitations. Information obtained by: patient. HPI Narrative: 49yo F with hx c-diff presenting with worsening urinary symptoms. Started 4 days ago, urinary frequency and urgency. Mild dysuria and suprapubic pain. Saw her PCP yesterday and provided a urine sample. They decided to hold off on antibiotics until culture resulted; she was started on pyridium. Symptoms have continued to worsen over the past day and so she presents to the ED for evaluation. She also has low back pain and mild nausea. No fevers or chills. Related Data Home Medications ?Medication ?Instructions ?Recorded ?Confirmed famotidine 20 mg tablet 20 mg PO DAILY 06/07/21 09/14/24 amlodipine 5 mg tablet 10 mg PO HS 06/22/21 09/14/24 ferrous sulfate 325 mg (65 mg 325 mg PO .QOD 02/09/24 09/14/24 iron) tablet irbesartan 300 mg tablet 300 mg PO DAILY 02/09/24 09/14/24 riboflavin (vitamin B2) 400 mg 400 mg PO DAILY 02/09/24 09/14/24 tablet mesalamine 0.375 gram 1.5 g PO BID 03/25/24 09/14/24 capsule,extended release 24 hr (Apriso) medroxyprogesterone 10 mg tablet 10 mg PO DAILY AUB 30 days #90 06/14/24 09/14/24 tabs spironolactone 25 mg tablet 25 mg PO DAILY 07/01/24 09/14/24 nitrofurantoin 100 mg PO BID #9 caps 09/14/24 monohydrate/macrocrystals 100 mg capsule (Macrobid) omeprazole 40 mg capsule,delayed 40 mg PO .q meal 09/14/24 09/14/24 release phentermine 15 mg capsule 15 mg PO DAILY 09/14/24 09/14/24 Previous Rx's ?Medication ?Instructions ?Recorded medroxyprogesterone 10 mg tablet 10 mg PO DAILY AUB 30 days #90 06/14/24 tabs nitrofurantoin 100 mg PO BID #9 caps 09/14/24 monohydrate/macrocrystals 100 mg capsule (Macrobid) Allergies Allergy/AdvReac Type Severity Reaction Status Date / Time sulfamethoxazole (From Allergy Severe joints Verified 09/14/24 16:16 Bactrim) swell trimethoprim (From Bactrim) Allergy Severe joints Verified 09/14/24 16:16 swell hydrochlorothiazide Allergy Intermediate joint Verified 09/14/24 16:16 swelling hyoscyamine AdvReac Skin Rash Verified 09/14/24 16:16 CT Contrast AdvReac Skin Rash Uncoded 09/14/24 16:16 General Stated Complaint: Urinary MARY: 3 Review of Systems Narrative: see HPI Exam Narrative Exam Narrative: General: Alert, well appearing, well nourished, in no acute distress. Head: Normocephalic, atraumatic Neck: Trachea midline, ?Neck supple. ENT: ?MMM.? No oropharygeal lesions or exudate. Cardiac: ?RRR Resp: No respiratory distress. Speaking in full sentences. Abd: ?Soft, non-distended, nontender : ?+ suprapubic tenderness. No CVA tenderness. Back: Low lumbar/sacral paraspinal tenderness and spasm Extremities: ?No deformities.? No peripheral edema. Neurologic: GCS 15. ? Moves all extremities freely against gravity Course Vital Signs Vital signs: Vital Signs Temperature 36.7 C 09/14/24 16:11 Pulse 62 09/14/24 16:11 Respiratory Rate 20 09/14/24 16:11 Blood Pressure 132/83 09/14/24 16:11 Pulse Oximetry 98 09/14/24 16:11 Temperature 36.7 C 09/14/24 16:21 Temperature Source Oral 09/14/24 16:21 Pulse 62 09/14/24 16:21 Respiratory Rate 20 09/14/24 16:21 Blood Pressure 132/83 09/14/24 16:21 Blood Pressure Position Sitting 09/14/24 16:21 Pulse Oximetry 98 09/14/24 16:21 Oxygen Delivery Method Room Air 09/14/24 16:21 Oxygen Flow Rate 0 09/14/24 16:21 Pain Level 8 09/14/24 16:21 Lab/Test Results Lab/Test Results: Laboratory Tests Range/Units 09/14/24 16:25 Urine Color (Yellow) Dark Yellow Urine Clarity (Clear) Clear Urine pH (5-8) 6.0 Ur Specific [place] (1.005-1.025) <= 1.005 Urine Protein (Neg-Trace) mg/dL Negative Urine Ketones (Negative) mg/dL Negative Urine Blood (Negative) Negative Urine Nitrite (Negative) Positive H Urine Bilirubin (Negative) Negative Urine Urobilinogen (Up to 0.2) mg/dL 0.2 Ur Leukocyte Esterase (Negative) Negative Urine RBC (0-2) HPF 0-2 Urine WBC (0-5) HPF 3-5 Ur Epithelial Cells (Negative) HPF Few Urine Crystals (Negative) HPF Negative Urine Bacteria (Negative) HPF Many Urine Casts (Negative) LPF Negative Urine Mucus (Negative) Negative Ur Culture Indicated? No Urine Glucose (Negative) mg/dL 100 H POC- Test(urine) Negative Medical Decision Making 49yo F with hx c-diff presenting with worsening urinary symptoms. Started 4 days ago, frequency/urgency/dysuria/suprapubic pain. Saw her PCP, urine sent for culture, hesitant to start abx due to hx of c-diff. Symptoms have continued to worsen. No fevers, mild nausea. Triage note states flank pain; pt points to lumbar/sacral region. Well appearing on exam with no CVA tenderness, does have lumbar/sacral paraspinal tenderness. Not concerning for pyeleonephritits. Not septic. UA sent here and equivocal for UTI; sent for culture. Discussed options with patient, after shared decision making elected to start course of abx. She will call her primary care doctor in the morning to followup on her urine cutlure results from there and to discuss whether to continue abx. Discharged home on macrobid. Discharge instructions and return precautions were reviewed with patient who verbalized understanding. All questions were answered and she is in full agreement with the plan. Lab Data Lab results reviewed: Yes I reviewed the patient's lab results. Labs: 09/14/24 17:37 Urine - Not Specified Urine Culture - Pending Laboratory Tests Range/Units 09/14/24 16:25 Urine Color (Yellow) Dark Yellow Urine Clarity (Clear) Clear Urine pH (5-8) 6.0 Ur Specific [place] (1.005-1.025) <= 1.005 Urine Protein (Neg-Trace) mg/dL Negative Urine Ketones (Negative) mg/dL Negative Urine Blood (Negative) Negative Urine Nitrite (Negative) Positive H Urine Bilirubin (Negative) Negative Urine Urobilinogen (Up to 0.2) mg/dL 0.2 Ur Leukocyte Esterase (Negative) Negative Urine RBC (0-2) HPF 0-2 Urine WBC (0-5) HPF 3-5 Ur Epithelial Cells (Negative) HPF Few Urine Crystals (Negative) HPF Negative Urine Bacteria (Negative) HPF Many Urine Casts (Negative) LPF Negative Urine Mucus (Negative) Negative Ur Culture Indicated? No Urine Glucose (Negative) mg/dL 100 H PFSH All Active Problems (Updated 09/14/24 @ 17:24 by Carla Trevino MD) Acute cystitis (Acute) Benign mole (Acute) Abnormal skin growth (Acute) Menorrhagia (Acute) Now on progesterone with good effect. Liletta IUD placed 02/11/24 - coming out and removed in ED 04/25/24 Endo bx: benign polypoid tissue Sono: some small fibroids Disorder of the skin and subcutaneous tissue, unspecified (Acute) Anxiety (Chronic) Hypertension (Chronic) Numbness of right hand (Acute) Ulcerative colitis (Chronic) Takes Apriso, Sees Dr. Clay in [facility] Chronic kidney disease (CKD) stage G3a/A1, moderately decreased glomerular filtration rate (GFR) between 45-59 mL/min/1.73 square meter and albuminuria creatinine ratio less than 30 mg/g (Acute) Medical History Mitral valve regurgitation Eczema Obesity GERD (gastroesophageal reflux disease) Headache Acne History of anemia History of cardiac arrhythmia during surgery only, follow up testing negative Depression prozac in the past Clostridium difficile colitis Surgical History History of delivery 04/29/2021. [facility] [place], [place] at 30 4W 1D EGA. Preeclampsia imposed on chronic hypertension. 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 Previous back surgery heart arrhythmia during surgery Hx of cholecystectomy 02/03/2006 S/P knee surgery right 02/24/1990 S/P hernia surgery 02/24/1979 Family History Father Hypertension Parkinsons disease ?PSP Diabetes Mother Hypertension Rheumatoid arthritis Thyroid disease Cataract Hyperlipidemia Diabetes Osteoarthritis Maternal Grandmother Diabetes Colon cancer Stroke Paternal Grandmother Diabetes Maternal Grandfather Hypertension Aunt Breast cancer Social History Smoking/Tobacco Use Status: Never Smoking risk assessment performed?: Yes Alcohol Intake: never Drug use: Never Substance use type: does not use Do you feel safe at home: Yes Do you feel safe in your relationship?: Yes History History 8 Para 5 Hx # Term Pregnancies 5 Multiple births Hx # Pregnancies Ectopic pregnancies AB induced Hx Number of Living Children AB spontaneous 3 Past Pregnancies Del. Date GA/Weeks # Preg Succ Route Wgt Sex Labor Lgth Anesthesia Location Prov Complic 05/23/96 36 No vaginal 2721.554 g Female local [facility] [place] 10/21/98 40 No vaginal 3827.186 g Male [place], [facility] Fitz[place] hemorrhage 08/27/01 40 No vaginal 3742.137 g Male Ivanna 09/28/05 40 No vaginal Male short Ivanna 04/29/21 34 No Female [facility] [place] [place] Delivery Date: 05/23/96 Last Updated by: Leigha Roberson CNM PROM preeclampsia Delivery Date: 10/21/98 Last Updated by: Leigha Roberson CNM [place], hemorrhage Delivery Date: 08/27/01 Last Updated by: Leigha Roberson CNM Stevan Delivery Date: 09/28/05 Last Updated by: Leigha Roberson CNM [place] Delivery Date: 04/29/21 Last Updated by: Herbie Vincent. 34wk transfer to [facility] [place] [place] for PEC with severe features, ECV for transverse lie, then IOL, the baby was transverse again and emergent CS was done. Maternal bradycardia to 27 during CS. Significant EBL during section but only received IV iron post-op (Hb 8). Baby home PPD#9.
[2024-09-14] MEDS: MacroBID 100 MG CAP PO (17:36)
== END 2024-09-14 17:38 | disposition home or self-care (01) ==
PROVIDERS: Emergency Provider Student in an Organized Health Care Education/Training Program; PCP Family Medicine
DX: N30.00 Acute cystitis without hematuria (principal)
CPT/HCPCS: 99283 ×2; 81025; 81003; 81015; 87086

== ENCOUNTER 2024-12-24 16:36 | Outpatient (REF) | payer SELFPAY ==
[2024-12-24 16:57] LABS: WBC 20-50 HPF (0-5)
== END 2024-12-24 16:37 | disposition home or self-care (01) ==
LOC: LBN 16:36
PROVIDERS: PCP Family Medicine; Visit Provider Physician Assistant Medical
DX: R30.0 Dysuria (principal)
CPT/HCPCS: 87077; 81015; 87086; 87186